=== PATIENT | male | born 1955 | race Caucasian/White ===

== ENCOUNTER 2016-09-23 11:51 | Inpatient (IN) | payer MEDICARE, MEDICAID ==
[~2016-09-23] VITALS: Ht 172.7 cm; Wt 129.8 kg
[~2016-09-23 11:51] MED LIST: ACCUNEB SOL3 ML/NE1 IN; ACETAMINOPHEN &1 TA1 PO; ADVAIR 250/5028 PUFF IN; ALBUTEROL-1 PUFF/14. IN; ALBUTEROL2 PUFFS/17 IN; ALPRAZOLAM1 MG PO; AMBIEN 10MG TAB10 MG PO; ARAVA20 MG PO; ASPERCREME10% TP; ASPIRIN 81MG TA81 MG PO; ATORVASTATIN CA20 M1 PO; ATORVASTATIN CA20 MG PO; AVPAK AZITHROM250 MG PO; AZITHROMYCIN250 MG PO; BACTRIM DS 8001 TA1 PO; CEFDINIR300 M1 PO; CLOPIDOGREL75 M2 PO; CLOTRIMAZOLE 1%15 GM TP; CYCLOBENZAPRINE10 MG PO; DOXYCYCLINE HY100 M4 PO; FLAGYL500 M1 PO; FLUOXETINE20 MG PO; FOLIC ACID1 MG PO; FUROSEMIDE 40MG40 M1 PO; GABAPENTIN300 M1 PO; HYDROCODONE 7.51 TAB PO; HYDROCODONE-APA1 TA2 PO; HYDROCODONE1 TABLET PO; IBU-8800 MG PO; IPRATROPIUM BROM3 M1 IN; KEFLEX 500MG.500 MG PO; KLOR-CON M2020 MEQ PO; LEVAQUIN500 MG PO; LEVAQUIN750 MG PO; LEXAPRO 10 MG T10 MG PO; LISINOPRIL 20MG20 MG PO; LOPRESSOR 25MG.25 MG PO; LORTAB 5/500 501 TAB PO; METHOTREXATE 22.5 MG PO; METOPROLOL25 MG PO; NICOTINE PATCH;21 MG TD; NYSTATIN SUSPEN60 ML PO; POTASSIUM CHLO20 ME2 PO; PREDNISONE 10MG10 MG PO; PREDNISONE 20MG20 MG PO; PREDNISONE20 MG PO; PRENATAL PLUS1 TA1 PO; PRILOSEC20 MG PO; RANEXA1000 M2 PO; SALMETEROL-F28 PUFFS IN; SERTRALINE 100100 MG PO; SINGULAIR10 MG PO; STERAPRED DS10 MG PO; THEO-TIME300 MG PO; TRAZODONE 50MG50 MG PO; TREXALL15 MG PO; XANAX 1MG TABLET1 MG PO
[2016-09-23 11:54] VITALS: BP 159/95
[2016-09-23 12:34] LABS: HEMOGLOBIN 9.8 g/dL (14.1-18.0); LYMPH % 14.2 % (10-50)
--- NOTE | 2016-09-23 12:37 | Emergency Room Report ---
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 Y Clinical Suspician of Infection? N Mental Status: 1 - Regular (Normal Baseline) Sepsis Risk:Severe Sepsis Risk Have you (or family members/close friends) recently traveled outside the [place]? N If Yes, where/when: Have you had exposure to infectious disease within the past month? N TB? Other? Specify: Patient w/ hx of pulmonary fibrosis, patient of Dr. Camarena, has had several day hx of cough with sputum; states is on Erythromycin three times weekly and in past month has been on Levaquin per his PCP Dr. Perez. he was seen at ER yesterday and he states he was given steroids while there, and he brings in a discharge sheet stating dx COPD with Rx Doxycycline. He returns via EMS due to SOB this morning, with EMS administering duoneb R[employer] TANNER due to sats in the upper 80' s on their arrival. He arrives with sats in the upper 90's on CO. He states he has not taken any steroids today. No fever. ALLERGIES Coded Allergies: No Known Allergies (04/28/16) Home Medications Reported Medications Ranolazine (Ranexa) 1,000 MG PO BID Omeprazole (Prilosec 20MG) 20 MG PO DAILY Leflunomide (Arava) 20 MG PO DAILY Alprazolam (Xanax 1MG) 1 MG PO TID #90 TAB Sertraline Hydrochloride (Sertraline 100MG) 100 MG PO DAILY #30 CLOPIDOGREL BISULFATE (Clopidogrel) 75 MG PO DAILY #30 MULTIVIT-MIN W/FE-FA ( Multivitamin Tablet) 1 TAB PO DAILY Montelukast Sodium (Singulair) 10 MG PO QHS HYDROCODONE/ACETAMINOPHEN (Hydrocodon-Acetaminophn 10-325) 1 TAB PO Q4HP PRN PAIN #150 TRAZODONE HCL (Trazodone HCl) 50 MG PO QHS ALBUTEROL-IPRATROPIUM (Combivent Inhaler) 1 PUFFS IN Q6H FLUTICASONE/SALMETEROL (Advair 250-50 Diskus) 1 PUFF IN BID History Medical History General CAD? No Angina: No DE: Yes Hypertension? Yes Hyperlipidemia? Yes CHF? No DVT? No PE? No COPD? Yes Asthma? No Anemia? No GERD? Yes Gastric ulcers? No GI Bleed? No Hernia? No Thyroid Problems? No Hypothyroidism? No CVA? No Seizures? No Diabetes? No Renal Insuffiency? No End Stage Renal Disease? No UTI? No Stones? Yes BPH? No GB Disease: No Nephritic Syndrome? No Asplenia? No Hepatitis? No Sickle Cell Disease? No Arthritis? Yes Migraines? No Cataracts? No Glaucoma? No MRSA? Yes HIV? No TB? No Anxiety? Yes Depression? Yes Cancer? No More? 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 Immunization Hx DT/Tetanus Unknown Flu 2015-FSN Pneumonia Received In Past Surgical Hx Previous Surgery?Y LEFT ANKLE BILATERAL CARPAL TUNNEL RIGHT FOOT R SHOULDER REPLACEMENT IBV VALVE LT LUNG LEFT ANKLE IBV VALVE LT LUNG REMOVED Family History Family Hx Diabetes No CAD No Hypertension Yes Hyperlipidemia Yes Cancer No TB No Social History Smoking Hx Smoker: Current Some Day Smoker Tobacco: Yes Type Cigarettes Packs/day 1 1/2 - 2 Packs Alcohol Alcohol: No Review of Systems All Other Systems Reviewed and Negative (uses Combivent and Advair) Respiratory see HPI Physical Exam Vital Signs Vital Signs Date Time Temp Pulse Resp B/P Pulse O2 O2 Flow FiO2 Ox Delivery Rate 09/23 1154 99.1 98 24 159/95 96 4 General Appearance normal appearance, WD/WN, no apparent distress Eye Exam - bilateral eye normal exam, bilateral eye PERRL, bilateral eye EOMI Neck normal inspection, non-tender, supple, full range of motion Respiratory Status Yes: trachea midline, chest symmetrical, non tender chest, productive cough. No : respiratory distress, tender on palpation, use of accessory muscles, pain on inspiration, pain on expiration, non productive cough. Lung Sounds bilateral: wheezing. left: rhonchi. right: lungs clear (occ end exp wheezing). Cardiovascular normal exam, regular rate/rhythm, no peripheral edema, no gallop, no JVD, no murmur, no rub, normal peripheral pulses Gastrointestinal normal bowel sounds, normal exam, non tender, soft, no organomegaly, no pulsatile mass, no guarding, no rebound Extremities non-tender, normal range of motion, normal inspection, normal capillary refill, no calf tenderness Neurologic alert, normal exam, no motor/sensory deficits, oriented x 3 (speech clear; no tremor) Glascow Coma Scale Glascow Coma Scale Response Value EYE response: 4 Spontaneously 4 MOTOR response: 6 OBEYS 6 VERBAL response: 5 Oriented & Converses 5 Total 15 Skin intact, normal color, warm/dry, bruising Medical Decision Making LABS/Meds/Orders Pt receiving controlled substance in ED? No Results/Orders Laboratory Tests 09/23/16 1225: Lactic Acid 1.2 09/23/16 1225: Sodium 139, Potassium 4.3, Chloride 102, Carbon Dioxide 32, BUN 12, Creatinine 0.9, Estimated Creat Clear 138, Estimated GFR (MDRD) 87, Glucose 113 H, Calcium 8.7, Total Bilirubin 0.6, AST 18, ALT 19, Alkaline Phosphatase 44 L, Total Protein 6.6, Albumin 2.2 L, Globulin 4.4 H, Albumin/Globulin Ratio 0.5 L, WBC 7.3, RBC 3.48 L, Hgb 9.8 L, Hct 30.6 L, MCV 87.9, RDW 17.9 H, Plt Count 189, MPV 6.9 L, Gran % 77.8, Gran # 5.7, Lymphocytes % 14.2, Monocytes % 5.1, Eosinophils % 2.7, Basophils % 0.1, Lymphocytes # 1.0, Monocytes # 0.4, Eosinophils # 0.2, Basophils # 0.0, PUBS MCHC 31.9, MCH 28.0 Current Medication Orders Sig/Rito Start time Last Medication Dose Route Stop Time Status Admin Methylprednisolone 125 MG ONCE ONE 09/23 1245 CAN Sodium Succinate IV 09/23 1246 Methylprednisolone 0 .STK-MED ONE 09/23 1239 DC Sodium Succinate .ROUTE Methylprednisolone 125 MG ONCE ONE 09/23 1215 DC 09/23 Sodium Succinate IV 09/23 1216 1241 Sodium Chloride 10 ML PRN PRN 09/23 1215 AC IV 09/24 1201 Orders Procedure Date/time Status Decision to admit 09/23 1339 Active CULTURE, SPUTUM 09/23 1210 Active IV SALINE LOCK 09/23 1203 Active OXYGEN PER NURSE 09/23 1203 Active CULTURE, BLOOD 09/23 1203 Active LACTIC ACID 09/23 1203 Complete CBC WITH AUTO DIFF 09/23 1203 Complete CHEM 12 PROFILE 09/23 1203 Complete XRAY/CT/US XRAY/CT/US XRAY chest XR interpretation by reviewed by me Comment CHF w/ pulmonary fibrosis per radiology; (ERMD initially questioned infiltrates on prelim) Consult MD Physician Consult Time Called 1316 Reason Admission Progress ED Progress Notes Date 09/23/16 Time 1347 Comment I spoke with Dr. Perez, who will admit patient; had seen this patient in past four office visits this month; suggests may be a candidate for hospice. Give Lasix. Departure Departure Time of Disposition 1346 Disposition Still a Patient Clinical Impression Primary Impression: COPD exacerbation Condition STABLE Referrals Norm Perez MD (Family) ED Critical Care Critical Care No at 1347
--- NOTE | 2016-09-23 13:43 | RADIOLOGY REPORT PS360 ---
CHEST-PORTABLE HISTORY: SOA ORDERING PHYSICIAN: Catrachita Sanchez MD PATIENT AGE: 60 years COMPARISON: 08/25/2016 FINDINGS: There is cardiomegaly with pulmonary venous congestion and diffuse bilateral interstitial changes/pulmonary fibrosis as previously described is probably not significantly changed considering the difference in technique. IMPRESSION: CHF with diffuse pulmonary fibrosis
--- NOTE | 2016-09-23 14:53 | PHARMACY CLINIC NOTE ---
Patient Demographics Patient Demographics Admission date: 09/23/16 Date: 09/23/16 Time: 1452 Allergies Coded Allergies: No Known Allergies (04/28/16) HEIGHT- FT: 5 IN: 8.00 K.864 VTE General Information Labs: Laboratory Tests 09/23 1225 Hematology Hgb (14.1 - 18.0 g/dL) 9.8 L Hct (42.0 - 52.0 %) 30.6 L Plt Count (142 - 424 K/mm3) 189 Disclaimer The following section includes nursing documentation that has been pulled in for pharmacy review. VTE prophylaxis NQF [id number] VTE prophylaxis ordered? Yes Type of prophylaxis/treatment: KENNY at 4361
[2016-09-23 16:18] VITALS: BP 164/95
--- NOTE | 2016-09-23 17:08 | HISTORY AND PHYSICAL REPORT ---
Demographics: Admit date: 09/23/16 Chief complaint: Shortness of breath PRIMARY DIAGNOSIS: chronic obstructive pulmonary disease exacerbation Allergies: Coded Allergies: No Known Allergies (04/28/16) History of present illness: History of present illness: 60-year-old male with chronic lung disease, severe chronic obstructive pulmonary disease, pulmonary fibrosis, rheumatoid arthritis, chronic pain presents to the emergency department at [facility] with complaint of increasing shortness of breath since the beginning of the week. Patient reports subjective fevers at home along with chills, a cough that is productive of either clear or light green or dark green sputum, and increasing shortness of breath. Patient was actually scheduled to be seen in my office on Tuesday of this week and missed that appointment. He was then seen on Tuesday, September 22 by my nurse practitioner who contacted Dr. Escamilla about the patient and he was subsequently sent to [facility] emergency department. The patient tells me he was in the ER for several hours. It sounds like he pushed for decision to be made on whether he would be admitted to the hospital or not. They sent him home with prednisone and a prescription for doxycycline. He then came to our emergency department today. So far in 2017 he has had multiple exacerbations of his chronic lung disease requiring steroids and antibiotics. He is also had to nursing home facility stays, one at [facility] and 1 at [facility] for attempts at pulmonary rehab. In the emergency department patient's O2 sats were in the 80s and 90s which is higher than any of his last 4 office visits when his O2 sats have ranged from the mid to high 70s to the low 80s. Past medical history: Family HX Family Hx Insignificant No Diabetes No CAD No Hypertension Yes Hyperlipidemia No Cancer Yes TB No Immunization HX DT/Tetanus N Flu 2015-FSN Pneumonia Received In Past Other PREVANAR 13 SHOT TB Test in last year No General CAD? No Angina: No MD: Yes Hypertension? Yes Hyperlipidemia? No CHF? No DVT? No PE? No COPD? Yes Asthma? Yes Anemia? Yes GERD? Yes Gastric ulcers? No GI Bleed? No Hernia? Yes Thyroid Problems? No Hypothyroidism? No CVA? No Seizures? No Diabetes? No Renal Insuffiency? No UTI? Yes Stones? Yes BPH? Yes GB Disease: No Nephritic Syndrome? No Asplenia? No Hepatitis? No Sickle Cell Disease? No Arthritis? Yes Migraines? No Cataracts? No Glaucoma? No MRSA? Yes HIV? No TB? No Anxiety? Yes Depression? Yes Cancer? No More? 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 Past Surgical HX Previous Surgery?Y LEFT ANKLE BILATERAL CARPAL TUNNEL RIGHT FOOT R SHOULDER REPLACEMENT IBV VALVE RT LUNG LEFT ANKLE IBV VALVE RT LUNG REMOVED Current home meds: Reported Medications Ranolazine (Ranexa) 1,000 MG PO BID Omeprazole (Prilosec 20MG) 20 MG PO DAILY Leflunomide (Arava) 20 MG PO DAILY Alprazolam (Xanax 1MG) 1 MG PO TID #90 TAB Sertraline Hydrochloride (Sertraline 100MG) 100 MG PO DAILY #30 CLOPIDOGREL BISULFATE (Clopidogrel) 75 MG PO DAILY #30 MULTIVIT-MIN W/FE-FA ( Multivitamin Tablet) 1 TAB PO DAILY Montelukast Sodium (Singulair) 10 MG PO QHS HYDROCODONE/ACETAMINOPHEN (Hydrocodon-Acetaminophn 10-325) 1 TAB PO Q4HP PRN PAIN #150 TRAZODONE HCL (Trazodone HCl) 50 MG PO QHS ALBUTEROL-IPRATROPIUM (Combivent Inhaler) 1 PUFFS IN Q6H FLUTICASONE/SALMETEROL (Advair 250-50 Diskus) 1 PUFF IN BID Social Hx: Smoking HX Tobacco Yes Type Cigarettes Packs/day 1 1/2 - 2 PACKS Alcohol Alcohol: No Hx of Drug Use Drug Use? No Comment: Quit smoking earlier this year Review of systems: Constitutional see HPI. Respiratory see HPI. Cardiovascular no symptoms reported Gastrointestinal/Abdominal no symptoms reported Genitourinary no symptoms reported. Musculoskeletal no symptoms reported. Neurological Yes: no symptoms reported. Exam: Lab data for last 24 hours: Laboratory Tests 09/23/16 1225: Lactic Acid 1.2 09/23/16 1225: Sodium 139, Potassium 4.3, Chloride 102, Carbon Dioxide 32, BUN 12, Creatinine 0.9, Estimated Creat Clear 138, Estimated GFR (MDRD) 87, Glucose 113 H, Calcium 8.7, Total Bilirubin 0.6, AST 18, ALT 19, Alkaline Phosphatase 44 L, Total Protein 6.6, Albumin 2.2 L, Globulin 4.4 H, Albumin/Globulin Ratio 0.5 L, WBC 7.3, RBC 3.48 L, Hgb 9.8 L, Hct 30.6 L, MCV 87.9, RDW 17.9 H, Plt Count 189, MPV 6.9 L, Gran % 77.8, Gran # 5.7, Lymphocytes % 14.2, Monocytes % 5.1, Eosinophils % 2.7, Basophils % 0.1, Lymphocytes # 1.0, Monocytes # 0.4, Eosinophils # 0.2, Basophils # 0.0, PUBS MCHC 31.9, MCH 28.0 Microbiology 09/23 122 BLOOD: Anaerobic Blood Culture - RECD 09/23 1224 BLOOD: Aerobic Blood Culture - RECD 09/23 1224 BLOOD: Anaerobic Blood Culture - RECD 09/23 1224 BLOOD: Aerobic Blood Culture - RECD 09/23 1210 SPUTUM: Sputum Culture - ORD 09/23 1209 SPUTUM: Gram Stain - ORD Admission vital signs: 1ST Vital Signs Result Date Time Pulse Ox 96 09/23 1154 B/P 159/95 09/23 1154 O2 Flow Rate 4 09/23 1154 Temp 99.1 09/23 1154 Pulse 98 09/23 1154 Resp 24 09/23 1154 O2 Delivery OXYGEN 09/23 1618 Additional information: Patient is in bed with nasal cannula oxygen is in place. He has mild tachypnea. HEENT exam: Moist oropharynx, normal external ears, intact extraocular movements. Neck is without lymphadenopathy or carotid bruits. Lungs: Patient has fair aeration along with some dry inspiratory crackles at the bases and occasional expiratory wheeze. He is not far from baseline. Heart has a regular rate and rhythm. Abdomen is obese and soft. Extremities are without edema Plan: Problem List 1. Chronic obstructive pulmonary disease with (acute) exacerbation 2. Chronic respiratory failure 3. Interstitial lung disease 4. Pulmonary fibrosis Plan: 1. Patient's been admitted and will be given Solu-Medrol every 8 hours, DuoNeb nebs and started on Invanz. Sputum culture will be collected. Blood culture has Arctic been collected. Overall the patient needs palliative care as he is not expected to improve significantly. I will discuss this with the patient in the morning at 1708
[2016-09-23 18:39] VITALS: BP 151/72
[2016-09-23 19:20] VITALS: BP 139/79
[2016-09-23 21:40] VITALS: BP 139/79
[2016-09-23] MEDS ORDERED: LOPRESSOR 25MG.25 MG PO (21:58)
[2016-09-23] MEDS ORDERED: GABAPENTIN300 M1 PO (21:59)
[2016-09-23 23:46] VITALS: BP 126/81
[2016-09-24] VITALS (7 sets, daily range): BP systolic 111–139; BP diastolic 69–79
[2016-09-24 07:07] LABS: LYMPH # 0.6 K/mm3 (0.7-4.5); LYMPH % 10.9 % (10-50)
[2016-09-24 07:09] LABS: HEMOGLOBIN 10.9 g/dL (14.1-18.0)
--- NOTE | 2016-09-24 07:16 | ACUTE CARE PROGRESS NOTE (QUA) ---
Progress Notes Subjective Date 09/24/16 Time 0714 Note Patient is a little upset he did not get breathing treatments every 4 hours. He was awake and off and on during the night primarily due to the steroids he received but also because of his chronic back pain. Patient appears comfortable. Nasal cannula is in place. Lungs have fair aeration with diffuse expiratory wheezes both anteriorly and posteriorly. Rhonchi were present yesterday had improved. Continue IV steroids and Invanz. Patient's been unable to produce a sputum for collection. He will need to continue aerosols and steroids as well as antibiotics through the weekend. At discharge we will contact [facility] navigators to see if there are palliative care team can assess the patient. Objective Findings Last VS-Temp:99.2 B/P:111/69 Pulse:75 Resp:20 SaO2:90 OXYGEN Last weight lbs:286 oz:4 K.843 Method:Bed Scales Laboratory Tests 09/24/16 0645: WBC 5.2, RBC 3.85 L, Hgb 10.9 L, Hct 34.6 L, MCV 89.9, RDW 17.9 H, Plt Count 225, MPV 6.6 L, Gran % 86.1 H, Gran # 4.5, Lymphocytes % 10.9, Monocytes % 2.6 , Eosinophils % 0.3, Basophils % 0.1, Lymphocytes # 0.6 L, Monocytes # 0.1, Eosinophils # 0.0, Basophils # 0.0, PUBS MCHC 30.9 L, MCH 27.8 09/23/16 1225: Lactic Acid 1.2 09/23/16 1225: Sodium 139, Potassium 4.3, Chloride 102, Carbon Dioxide 32, BUN 12, Creatinine 0.9, Estimated Creat Clear 138, Estimated GFR (MDRD) 87, Glucose 113 H, Calcium 8.7, Total Bilirubin 0.6, AST 18, ALT 19, Alkaline Phosphatase 44 L, Total Protein 6.6, Albumin 2.2 L, Globulin 4.4 H, Albumin/Globulin Ratio 0.5 L, WBC 7.3, RBC 3.48 L, Hgb 9.8 L, Hct 30.6 L, MCV 87.9, RDW 17.9 H, Plt Count 189, MPV 6.9 L, Gran % 77.8, Gran # 5.7, Lymphocytes % 14.2, Monocytes % 5.1, Eosinophils % 2.7, Basophils % 0.1, Lymphocytes # 1.0, Monocytes # 0.4, Eosinophils # 0.2, Basophils # 0.0, PUBS MCHC 31.9, MCH 28.0 Microbiology 09/23 1225 BLOOD: Anaerobic Blood Culture - RECD 09/23 1225 BLOOD: Aerobic Blood Culture - RECD 09/23 1225 BLOOD: Anaerobic Blood Culture - RECD 09/23 1225 BLOOD: Aerobic Blood Culture - RECD 09/23 1210 SPUTUM: Sputum Culture - ORD 09/23 1210 SPUTUM: Gram Stain - ORD Assessment/Plan Problem List 1. Chronic obstructive pulmonary disease with (acute) exacerbation 2. Chronic respiratory failure 3. Interstitial lung disease 4. Pulmonary fibrosis Patient condition Stable This inpt stay is expected to cross 2 MNs from start of care Yes at 0716
[2016-09-24 09:41] LABS: NEUTROPHILS 80 % (42-76)
[2016-09-24 10:46] LABS: CORONAVIRUS 229E NOT DETECTED (NOT DETECTE); CORONAVIRUS HKU 1 NOT DETECTED (NOT DETECTE); CORONAVIRUS NL63 NOT DETECTED (NOT DETECTE); CORONAVIRUS OC43 NOT DETECTED (NOT DETECTE)
[2016-09-24 11:59] LABS: RHINOVIRUS/ENTEROVIRUS DETECTED (NOT DETECTE)
[2016-09-25 03:45] VITALS: BP 143/75
--- NOTE | 2016-09-25 07:39 | ACUTE CARE PROGRESS NOTE (QUA) ---
Progress Notes Subjective Date 09/25/16 Time 0739 Note Patient feels somewhat better. Notes that CPAP has caused increased wheezing. Patient alert. Somewhat cantankerous. Anterior lung connor have good air movement but are afflicted with expiratory wheezing and some rhonchi. Heart irregular. Abdomen soft. Objective Findings Last VS-Temp:98.3 B/P:143/75 Pulse:106 Resp:24 SaO2:95 OXYGEN Last weight lbs:286 oz:4 K.843 Method:Bed Scales Assessment/Plan Problem List 1. Chronic obstructive pulmonary disease with (acute) exacerbation 2. Chronic respiratory failure 3. Interstitial lung disease 4. Pulmonary fibrosis Patient condition Improving, no change in plan, home medications reconciled. This inpt stay is expected to cross 2 MNs from start of care Yes Antibiotic Stewardship (2) Current Culture Results Microbiology 09/23 1225 BLOOD: Anaerobic Blood Culture - RECD 09/23 1225 BLOOD: Aerobic Blood Culture - RECD 09/23 UNK SPUTUM: Sputum Culture - ORD 09/23 UNK SPUTUM: Gram Stain - ORD Infxn that will respond? Yes Right drug,dose,and route? Yes More targeted antbx? No How long atbx needed? 7 at 0739
[2016-09-25 08:30] VITALS: BP 124/77
[2016-09-25 15:59] VITALS: BP 137/79
[2016-09-25 19:40] VITALS: BP 121/69
[2016-09-25 20:00] VITALS: BP 121/69
[2016-09-26 04:00] VITALS: BP 141/76
--- NOTE | 2016-09-26 07:27 | ACUTE CARE PROGRESS NOTE (QUA) ---
Progress Notes Admission Date: 09/23/16 Subjective Date 09/26/16 Time 0726 Note Overall patient feels a little better today. Slept well. Is pleased that his medicines have now been reordered according to his medication regimen at home. Continues to have loose rhonchi and some expiratory wheezing throughout his lungs. Abdomen is soft, exam compromised by his morbid obesity. Heart rate regular. No ankle edema. Objective Findings Last VS-Temp:97.9 B/P:141/76 Pulse:69 Resp:20 SaO2:96 OXYGEN Last weight lbs:286 oz:4 K.843 Method:Bed Scales Assessment/Plan Problem List 1. Chronic obstructive pulmonary disease with (acute) exacerbation 2. Chronic respiratory failure 3. Interstitial lung disease 4. Pulmonary fibrosis 5. Morbid obesity Patient condition Improving Plan: continue current care, follow labs tomorrow, no major changes otherwise. This inpt stay is expected to cross 2 MNs from start of care Yes Antibiotic Stewardship (2) Current Culture Results Microbiology 09/23 1225 BLOOD: Anaerobic Blood Culture - RECD 09/23 1225 BLOOD: Aerobic Blood Culture - RECD 09/23 UNK SPUTUM: Sputum Culture - ORD 09/23 UNK SPUTUM: Gram Stain - ORD Infxn that will respond? Yes Right drug,dose,and route? Yes More targeted antbx? No How long atbx needed? 7 at 0726
[2016-09-26 07:47] VITALS: BP 157/88
[2016-09-26 08:46] VITALS: BP 157/88
--- OUTSIDE RECORDS SUMMARY | 2016-09-26 10:36 | External Medical Summary Rpt ---
Author Author , Organization [employer] Address Unknown Phone Unavailable Care Team Providers Care Aircraft Inspection Record Clerk Name Role Phone A Candice COLBERT MD P[facility], Avtar Unavailable Unavailable Candice COLBERT MD PSC MARTIN MCKINNEY Unavailable Unavailable REEMA ELDER, Unavailable Unavailable REEMA BOOTH [facility], Unavailable Unavailable INC., [facility] Unavailable Unavailable [place] [place] [facility], [facility] AND Unavailable Unavailable BESSON KAMALA, BESSON Unavailable Unavailable KAMALA SOHEILA DEENA, Unavailable Unavailable SOHEILA DEENA [facility] Unavailable Unavailable SERVICE, [facility] Unavailable Unavailable SERVICE, [facility] CAMILLE KET, CAMILLE KET Unavailable Unavailable GRZEGORZ ONLINE MEDIA BUYER, GRZEGORZ Unavailable Unavailable ONLINE MEDIA BUYER TITI JAG, TITI Unavailable Unavailable FAUSTINO MCDOWELL, Unavailable Unavailable FAUSTINO RUIZ [facility], Unavailable Unavailable [facility] COZ YATACO ANG, COZ Unavailable Unavailable YATACO ANG DAWNA TIERRA, Unavailable Unavailable DAWNA TIERRA LAVONNE KALYAN, Unavailable Unavailable LAVONNE KALYAN LAVONNE KALYAN, Unavailable Unavailable LAVONNE KALYAN LAVONNE, GEREMIAS, Unavailable Unavailable LAVONNE, GEREMIAS DISANTIS SIDDHARTHA, Unavailable Unavailable DISANTIS SIDDHARTHA [facility], [facility] Unavailable Unavailable JERRI ESPERANZA, JERRI Unavailable Unavailable ESPERANZA JERRI ESPERANZA, JERRI Unavailable Unavailable ESPERANZA ALBERTO RIT, ALBERTO RIT Unavailable Unavailable HU NAN, HU Unavailable Unavailable NAN JESSICA VENUS, JESSICA Unavailable Unavailable VENUS [facility] Unavailable Unavailable HOSPITA, [facility] Unavailable Unavailable [facility], [facility], [facility] Unavailable Unavailable [facility] Unavailable Unavailable INC, [facility] Unavailable Unavailable HOSPITAL P, [facility] P DUBOIS KAMALA, DUBOIS KAMALA Unavailable Unavailable MARIXA CHASE, RENA, Unavailable Unavailable MARIXA G [facility] Unavailable Unavailable [facility] HARLEY OSCAR, Unavailable Unavailable HARLEY OSCAR KILPELA JEA, KILPELA Unavailable Unavailable JEA ARINA NADINE, ARINA NADINE Unavailable Unavailable ISA SARAH, ISA SARAH Unavailable Unavailable KOSTELIC MONTSERRAT, Unavailable Unavailable KOSTELIC MONTSERRAT ROQUE CHI, ROQUE CHI Unavailable Unavailable [facility] Unavailable Unavailable [facility], [facility] Unavailable Unavailable HOLDING, [facility] [place] Unavailable Unavailable [facility]INGS, [facility] Unavailable Unavailable [facility], [facility], Unavailable Unavailable [facility] JUAN KAMALA, Unavailable Unavailable TONO PONCE, Unavailable Unavailable TONO MARTINEZ HAYWOOD MARION, HAYWOOD Unavailable Unavailable MARION JESICA JAM, JESICA JAM Unavailable Unavailable TIAGO JR DWI, TIAGO Unavailable Unavailable JR DWI LUKINS TIERRA, LUKINS Unavailable Unavailable TIERRA [facility] Unavailable Unavailable SERVICES, [facility] MAKSIM II, NESHA A, Unavailable Unavailable MAKSIM II, NESHA A THOMPSON JAM, Unavailable Unavailable THOMPSON JAM TOSHIA WESTON, Unavailable Unavailable [facility] Unavailable Unavailable OF THE B, [facility], Unavailable Unavailable [facility] ANUPAM SANCHES, Unavailable Unavailable MYRON, TADARRO RICHY HOLLIS G, Unavailable Unavailable RICHY HOLLIS G MOE CHET, MOE CHET Unavailable Unavailable SEETHARMRAJU HAZEL, Unavailable Unavailable SEETHARMRAJU HAZEL HUMMEL GODFREY, HUMMEL Unavailable Unavailable JENNIFER WHITLOCK, Unavailable Unavailable JENNIFER BOSCH [facility] Unavailable Unavailable EQUIPME, [facility] Unavailable Unavailable EQUIPME, [facility] TIM JUAREZ, Unavailable Unavailable TIM JUAREZ, Unavailable Unavailable SHAJI POWELL Unavailable Unavailable PRE [facility], Unavailable Unavailable [facility] Unavailable Unavailable [facility] GERALD MINA, Unavailable Unavailable ALEJO STRICKLAND, Unavailable Unavailable ALEJO AVENDANO III, Unavailable Unavailable YUNI SANTA, DEONDRE SANTA Unavailable Unavailable KAPOOR RAMA, EMELIA ONTIVEROS Unavailable [facility]available [facility], Unavailable [facility]available [facility] Purpose Continuity of Care Document - 07-10-2007 through 2016 Problems Code Diagnosis DOS Provider Status 486 PNEUMONIA, 03-16-2014 [facility] UNSPECIFIED MEDICAL EQUIPME 496 CHRONIC 03-16-2014 [facility] OBSTRUCTION MEDICAL NEC EQUIPME 515 POSTINFLAMM 03-19-2013 [facility] PULMONARY [facility] FIBROSIS 7245 UNSPECIFIED 03-19-2013 [facility] 47601 OTHER 03-19-2013 [facility] [place] [address] OBSTRUCTIVE 03-10-2013 [facility] APNEA MEDICAL EQUIPME 79442 OTHER 03-07-2013 [facility] LUNG NOT INC ELSEWHERE CLASSIFIED 7242 LUMBAGO 03-06-2013 [facility] V571 OTHER 03-06-2013 [facility] THERAP[facility] 39779 OTHER 03-01-2013 [facility] OF BRAIN [facility] 7140 RHEUMATOID 03-01-2013 [facility] 7840 HEADACHE 03-01-2013 [facility] 44711 DIARRHEA 03-01-2013 [facility] 7930 NONSPECIFIC 03-01-2013 [facility] AB[facility] FNDNG SERV RAD & OTH [facility] EXM SKULL & HEAD E8889 UNSPECIFIED 03-01-2013 [facility] F[place] [facility] 61796 OTHER 02-28-2013 [facility] PAIN [facility] 4019 UNSPECIFIED 02-28-2013 [facility] ESSENTIAL [facility] HYPERTENSIO [facility] N 22958 FEVER 02-28-2013 [facility] U[facility]PECIF[facility] 15094 OTHER 02-28-2013 [facility] NONSPECIFIC [facility] ABNORMAL [facility] FINDING OF LUNG FIELD 412 OLD 02-27-2013 [facility] INFARCTION 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 4829 UNSPECIFIED 02-27-2013 [facility] PNEUMONIA SERVICE 5184 UNSPECIFIED 02-27-2013 [facility] EDEMA OF [facility] LUNG 5849 ACUTE 02-27-2013 [facility] FAILURE UNSPECIFIED 15786 RHEUMATOID 02-27-2013 [facility] V4361 SHOULDER 02-27-2013 [facility] REPLACEMENT [facility] BY OTHER MEANS V462 DEPENDENCE 02-27-2013 [facility] FOR SUPPLEMENTA L OXYGEN 93205 OBSTRUCTIVE 02-26-2013 [facility] BRONCHITIS [facility] P WITH EXACERBATIO N V5869 LONG-TERM 02-20-2013 [facility] USE OF [place] OTHER MEDICATIONS V6751 F/U EXAM 02-20-2013 [facility] FOLLOW CMPL [place] [facility] W/HIGH-RISK MED NEC 71204 COR 02-12-2013 [facility] UNSPEC TYPE VESSEL TANGIRNAQ/RAUL T 4940 BRONCHIECTA 01-31-2013 [facility] WITHOUT SERV ACUTE FOUND[facility] EXACERBATIO N 59490 IDIOPATHIC 01-31-2013 [facility] FIBROS[facility] 7856 ENLARGEMENT 01-31-2013 [facility] LYMPH SERV NODES [facility] 67619 SHORTNESS 01-31-2013 [facility] BREATH SERV [facility] 17631 OTHER 01-31-2013 [facility] RESPIRATORY AMBULANCE SERVICE COMPLICATIO NS 0529 VARICELLA 01-06-2013 A Candice PINZON MD PSC MENTION OF COMPLICATIO N 7862 COUGH 01-06-2013 A Candice COLBERT MD PSC 4660 ACUTE 11-06-2012 A Candice COLBERT BRONCHITIS PSC V5812 ENCOUNTER 09-25-2012 [facility] ANTINEOPLAS [place] TIC IMMUNOTHERA PY 2859 UNSPECIFIED 08-31-2012 [facility] 4841 PNEUMONIA 08-31-2012 [facility] IN [facility] CYTOMEGALIC [facility] INCLUSION DISEASE 5168 OTH SPEC 08-31-2012 [facility] ALVEOL&DEONNA SERV ETOALVEOL F[facility] PNEUMONOPAT HIES 15283 NAUSEA WITH 08-02-2012 [facility]OM[facility] V1209 PERSONAL HX 08-02-2012 [facility] INFECTIOUS& F[facility]AT[facility] PARASITIC DISEASE 2724 OTHER AND 07-31-2012 [facility] HYPERLIPIDE ALEKSANDAR 5589 OTH&UNSPEC 07-31-2012 [facility] NONINFECT[place] SERV US [facility] GASTROENTER ITIS&COLITI S 43659 VOMITING 07-31-2012 [facility] INTER 41741 ABDOMINAL 07-31-2012 [facility] [place], SERV EPIGASTRIC [facility] 42887 SYSTEMIC 07-31-2012 [facility] RESPONSE SYNDROME UNSPEC V1269 PERSONAL 07-31-2012 [facility] H[facility] OTHER [facility] DISEASES RESPIRATORY SYS 514 PULMONARY 07-03-2012 [facility] AND HYPOSTASIS 7295 PAIN IN 07-03-2012 JERRI ESPERANZA SOFT TISSUES OF LIMB 7823 EDEMA 07-03-2012 JERRI ESPERANZA 5119 UNSPECIFIED 07-01-2012 [facility] EFFUSION 37715 OTHER 06-20-2012 [facility] OF SERV NASAL [facility] CAVITY AND SINUSES 5121 IATROGENIC 06-16-2012 [facility] PNEUMOTHROA SERV X [facility] 06142 ACUTE AND 06-16-2012 [facility] CHRON[facility] RESPIRATORY [facility] FAILURE 37730 SEPTIC 06-16-2012 [facility] SHOCK [facility] 0785 CYTOMEGALOV 06-15-2012 [facility] DISEASE [facility] 75628 CHEST PAIN 06-15-2012 [facility] OF THE B 7850 UNSPECIFIED 06-11-2012 [facility] TACHYCARDIA [facility] 4279 UNSPECIFIED 05-17-2012 [facility] CARDIAC [facility] DYSRHYTHMIA [facility] 66053 ACUTE 05-17-2012 [facility]ATORY [facility] FAILURE [facility] 18056 OTHER 04-24-2012 [facility] BRUNILDA SEPTICEMIA 1124 CANDIDIASIS 04-24-2012 [facility] 5070 PNEUMONITIS 04-24-2012 [facility] INHALATION OF FOOD OR VOMITUS 5100 EMPYEMA 04-24-2012 [facility] FISTULA 5183 PULMONARY 04-22-2012 [place] [facility] 95406 REFLUX 08-03-2011 [facility] ESOPHAGITIS KALYAN 54185 OTHER 08-03-2011 [facility] SYMPTOMS KALYAN INVOLVING DIGESTIVE SYSTEM OTHER 490 BRONCHITIS 07-13-2010 [facility] NOT KALYAN SPECIFIED ACUTE OR CHRONIC 90412 ASTHMA, 07-13-2010 [facility] UNSPECIFIED KALYAN , UNSPECIFIED STATUS 23656 PAIN IN 07-08-2010 [facility]INT, [facility] ANKLE AND FOOT 60766 DISORDER OF 07-08-2010 [facility] BONE AND SERV CARTILAGE F[facility] UNSPECIFIED V454 ARTHRODESIS 07-08-2010 [facility] STATUS [facility] V5489 OTHER 07-08-2010 [facility] AFTERCARE V5409 OTH 06-17-2010 [facility] AFTER[facility] INVOLVING [facility] INTERNAL FIXATION DEVICE V6700 FOLLOW-UP 06-01-2010 [facility] EXAMINATION SERV FOLLOWING F[facility]AT[facility] UNSPEC SURGERY 40229 PRIMARY 05-12-2010 [facility] LOCALIZED SERV OSTEOARTHRO FOUNDATIO SIS ANKLE AND FOOT 07892 PAIN IN 05-12-2010 [facility], SERV LOWER LEG FOUNDATIO V0481 NEED 05-12-2010 [facility] C VACCINATION &INOCULATIO N FLU V5849 OTHER 05-12-2010 [facility] SPECIFIED SERV AFTERCARE FOUNDATIO FOLLOWING SURGERY 4659 ACUTE URIS 04-17-2010 [facility] OF KALYAN UNSPECIFIED SITE 29656 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 [facility] RHEUMATISM SERV ANKLE AND FOUNDATIO FOOT 32611 PAIN IN 04-02-2010 [facility] JOINT, AMERIC UPPER ARM HOLDING 18603 OBST 03-12-2010 [facility] P W/ACUTE BRONCHITIS 84596 PAINFUL 03-12-2010 [facility]ERGENCY SERVICES 98077 UNSPECIFIED 05-20-2009 GEREMIAS BANERJEE ARTHROPATHY SITE UNSPECIFIED 4011 ESSENTIAL 05-09-2009 [facility] HYPERTENSI[facility] FAMILY PHYS N, BENIGN PSC 57278 OTHER CHEST 05-09-2009 [facility] PAIN GEREMIAS V7651 SPECIAL 05-09-2009 [facility] BANERJEE FOR MALIGNANT NEOPLASMS COLON 7808 GENERALIZED 05-05-2009 GEREMIAS BANERJEE HYPERHIDROS IS 5960 BLADDER 03-18-2009 [facility] [place] INC OBSTRUCTION 2720 PURE 03-17-2009 [facility] HYPERCHOLES GEREMIAS TEROLEMIA 54448 ESOPHAGEAL 03-17-2009 [facility] REFLUX GEREMIAS 35677 PRIMARY 03-17-2009 [facility] LOCALIZED GEREMIAS OSTEOARTHRO SIS OTH SPEC SITES 15373 OTH [facility] 11-26-2008 [facility] INT ORTHOPEDIC DEVC IMPL&GFT 61991 OT COMPS 11-26-2008 [facility] DUE OTH SERV INTRL F[facility]ATIO ORTHOPED DEVICE IMPL&GFT 7271 BUNION 11-11-2008 [facility] 49516 NONSPECIFIC 11-11-2008 [facility] ELECTROCARD IOGRAM V4589 OTHER 11-11-2008 [facility] L STATUS OTHER 25333 EFFUSION OF 09-19-2008 [facility] H JOINT ORTHOPAEDIC SURGEONS PSC 67021 VILLONODULA 09-19-2008 [facility] SYNOVITIS, ORTHOPAEDIC LOWER LEG SURGEONS PSC 5185 PULMONARY 05-16-2008 [facility] FOLLOW SERVICES [facility] SURGERY 49418 UNSPECIFIED 05-15-2008 [facility] [place] [address] EXTRINSIC 11-02-2007 [facility] ASTHMA, PHARMACY UNSPECIFIED 04120 OSTEOARTHRO 07-13-2007 MAKSIM II, SIS UNSPEC NESHA A WHETHER GEN/LOC ANK&FOOT 59005 TENOSYNOVIT 07-13-2007 MAKSIM II, IS OF FOOT NESHA A AND ANKLE E86.0 DEHYDRATION I45.10 UNSPECIFIED RIGHT BUNDLE-BRAN CH BLOCK J18.9 PNEUMONIA, UNSPECIFIED ORGANISM J40 BRONCHITIS, NOT SPECIFIED ACUTE OR CHRONIC J44.1 CHRONIC OBSTRUCTIVE PULMONARY DISEASE W (ACUTE) EXACERBATIO N J84.10 PULMONARY FIBROSIS, UNSPECIFIED J84.114 ACUTE INTERSTITIA L PNEUMONITIS J84.9 INTERSTITIA L PULMONARY DISEASE, UNSPECIFIED K57.92 DVTRCLI OF INTEST, PART UNSP, 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 W/O BLEED M48.06 SPINAL STENOSIS, LUMBAR REGION Allergies, Adverse Reactions, Alerts Type Allergy to substance Adverse Reaction to Substance Substance Reaction Severity NO KNOWN ALLERGIES Unknown Unknown Medications Na ND Rx Da Fi Fi Am Da Di Ph RX Ph St me C No te ll ll ou ys ag ar # ys at rm s nt no ma ic us Or Da si cy ia de te s n re d Ib 62 10 0 No up 58 -0 ro 40 1- Lo fe 74 20 ng n 70 13 er 60 1 0M Ac G ti Ta ve bl et LE 25 10 0 No VO 02 -0 FL 10 1- Lo OX 13 20 ng AC 28 13 er IN 3 Ac 75 ti 0 ve MG /1 50 ML -D 5W SO 00 09 1 No DI 40 -3 UM 97 0- Lo 98 20 ng CH 30 13 er LO 9 RI Ac DE ti ve 0. 9% SO AILIN TI ON Sa 63 09 1 No li 80 -3 ne 70 0- Lo 10 20 ng Fl 07 13 er us 5 h Ac 10 ti ML ve Sy ri ng e MA 00 09 0 No PA 90 -3 P 41 0- Lo 32 98 20 ng 5 26 13 er MG 1 Ac TA ti BL ve ET Sa 63 09 0 No li 80 -0 ne 70 4- Lo 10 20 ng Fl 07 13 er us 5 h Ac 10 ti ML ve Sy ri ng e IP 00 09 0 No RA 48 -0 T- 70 4- Lo AL 20 20 ng BU 10 13 er T 1 0. Ac 5- ti 3( ve 2. 5) MG /3 ML SO 00 09 0 No AILIN 00 -0 -M 90 4- Lo ED 04 20 ng RO 72 13 er L 2 12 Ac 5 ti MG ve AL Vital Signs 02-27-2013 00:37 Name Value Interpretat Reference Comment ion Range Body 102.4 Temperature [degF] BP 62 mm[Hg] Diastolic BP Systolic 121 mm[Hg] Heart 120 /min Rate/Pulse O2% 95 % Respiratory 24 /min Rate 02-27-2013 00:05 Name Value Interpretat Reference Comment ion Range Body 104.4 Temperature [degF] 02-26-2013 23:16 Name Value Interpretat Reference Comment ion Range BP 79 mm[Hg] Diastolic BP Systolic 124 mm[Hg] Heart 128 /min Rate/Pulse Respiratory 24 /min Rate 02-26-2013 22:43 Name Value Interpretat Reference Comment ion Range O2% 95 % 01-31-2013 17:47 Name Value Interpretat Reference Comment ion Range Body 99.0 [degF] Temperature BP 63 mm[Hg] Diastolic BP Systolic 121 mm[Hg] Heart 100 /min Rate/Pulse O2% 98 % Respiratory 24 /min Rate 01-31-2013 15:30 Name Value Interpretat Reference Comment ion Range BP 79 mm[Hg] Diastolic BP Systolic 130 mm[Hg] Heart 109 /min Rate/Pulse Respiratory 24 /min Rate 01-31-2013 15:06 Name Value Interpretat Reference Comment ion Range O2% 97 % 01-05-2013 15:52 Name Value Interpretat Reference Comment ion Range Body 98.8 [degF] Temperature BP 94 mm[Hg] Diastolic BP Systolic 140 mm[Hg] Heart 93 /min Rate/Pulse O2% 97 % Respiratory 20 /min Rate 01-05-2013 15:17 Name Value Interpretat Reference Comment ion Range BP 97 mm[Hg] Diastolic BP Systolic 139 mm[Hg] Heart 92 /min Rate/Pulse O2% 97 % Respiratory 16 /min Rate Results Labs Lab Lab Date Result Refere Interp Status Commen Order Detail nces retati t Range on NT-proBNP SerPl-mCnc (09-22-2016 14:15) NT-proB 492 0-899 complet LINE ASSEMBLER 017 pg/mL ed SerPl-m 14:15 Cnc Lactate Bld-sCnc (09-22-2016 14:15) Lactate 0.9 complet 017 mmol/L ed Bld-sCn 14:15 c BASIC METABOLIC PANEL (02-26-2013 22:55) Glucose 135 74-106 complet 013 mg/dL ed Bld-mCn 22:55 c BUN 11 7-18 complet Bld-mCn 013 mg/dL ed c 22:55 Creat 1.2 0.8-1.3 complet SerPl-m 013 mg/dL ed Cnc 22:55 ESTIMAT 96 50-200 complet ED 013 ML/MIN ed CREATIN 22:55 INE CLEARAN CE GFR 63 Greater complet (ESTIMA 013 ML/MIN than ed KENNY) 22:55 60 Sodium 137 136-145 complet SerPl-s 013 mmoL/L ed Cnc 22:55 Potassi 3.7 3.5-5.1 complet um 013 mmoL/L ed SerPl-s 22:55 Cnc Chlorid 100 98-107 complet e 013 mmoL/L ed SerPl-s 22:55 Cnc CO2 27 21.0-32 complet SerPl-s 013 mmoL/L .0 ed Cnc 22:55 Calcium 8.4 8.5-10. complet 013 mg/dL 1 ed SerPl-m 22:55 Cnc CBC with AUTO DIFF (02-26-2013 22:55) WBC # 02-26- 11.6 4.8-10. complet Bld 013 K/MM3 8 ed Auto 22:55 RBC # 02-26- 4.49 4.6-6.2 complet Bld 013 M/mm3 ed Auto 22:55 Hgb 13.3 14.1-18 complet Bld-mCn 013 g/dL .0 ed c 22:55 Hct Fr 40.0 % 42.0-52 complet Bld 013 .0 ed 22:55 MCV RBC 89.2 fl 82.2-97 complet 013 .8 ed 22:55 MCH RBC 29.5 pg 27-31.2 complet Qn 013 ed Auto 22:55 MEAN 33.1 31.8-35 complet CORPUSC 013 g/dl .4 ed ULAR 22:55 HGB CONC RDW RBC 18.0 % 11.5-17 complet Auto 013 .5 ed 22:55 Platele 09-30-2 187 142-424 complet t Bld 013 K/mm3 ed Ql 22:55 Manual MEAN -30-2 7.9 fl 7.4-10. complet PLATELE 013 4 ed T 22:55 VOLUME Granulo -30-2 68.9 % 37.0-80 complet cytes 013 .0 ed Fr Bld 22:55 Auto LYMPH % 09-30-2 22.1 % 10-50 complet 013 ed 22:55 Monocyt 09-30-2 7.8 % 1.7-9.3 complet es Fr 013 ed Bld 22:55 Auto Eosinop 09-30-2 0.9 % 0.1-12. complet hil Fr 013 0 ed Bld 22:55 Auto Basophi 09-30-2 0.3 % 0.1-2.0 complet ls Fr 013 ed Bld 22:55 Auto Granulo 09-30-2 8.0 1.3-8.0 complet cytes # 013 K/mm3 ed Bld 22:55 Auto Lymphoc 09-30-2 2.6 0.7-4.5 complet ytes Fr 013 K/mm3 ed Bld 22:55 Auto Monocyt 09-30-2 0.9 0.1-1.0 complet es # 013 K/mm3 ed Bld 22:55 Auto Eosinop 09-30-2 0.1 0.0-0.4 complet hil # 013 K/mm3 ed Bld 22:55 Auto Basophi 09-30-2 0.0 0-0.2 complet ls # 013 K/MM3 ed Bld 22:55 Auto ARTERIAL BLOOD GAS (02-26-2013 22:53) ARTERIA 30-2 7.49 7.35-7. complet L PH 013 MMOL/L 45 ed 22:53 ARTERIA 30-2 34.3 35.0-45 complet L PCO2 013 MMHG .0 ed 22:53 ARTERIA 30-2 85.0 80-100 complet L PO2 013 MMHG ed 22:53 ARTERIA 30-2 25.8 22.0-26 complet L HCO3 013 MMOL/L .0 ed 22:53 ARTERIA 30-2 26.8 23-27 complet L TCO2 013 MMOL/L ed 22:53 Base 2.5 -2.4-+2 complet excess 013 MMOL/L .3 ed BldA-sC 22:53 nc ARTERIA 96 % 90-100 complet L O2 013 ed SAT 22:53 OXYGEN 3LPM complet 013 ed 22:53 Arteria ACCEPTA complet l 013 BLE ed patency 22:53 Wrist a SOURCE LEFT complet 013 RADIAL ed 22:53 COMPREHENSIVE METABOLIC PANEL (01-31-2013 15:25) Glucose 100 74-106 complet 013 mg/dL ed Bld-mCn 15:25 c BUN 6 mg/dL 7-18 complet Bld-mCn 013 ed c 15:25 Creat 1.1 0.8-1.3 complet SerPl-m 013 mg/dL ed Cnc 15:25 ESTIMAT 104 50-200 complet ED 013 ML/MIN ed CREATIN 15:25 INE CLEARAN CE GFR 69 Greater complet (ESTIMA 013 ML/MIN than ed KENNY) 15:25 60 Sodium 139 136-145 complet SerPl-s 013 mmoL/L ed Cnc 15:25 Potassi 4.3 3.5-5.1 complet um 013 mmoL/L ed SerPl-s 15:25 Cnc Chlorid 101 98-107 complet e 013 mmoL/L ed SerPl-s 15:25 Cnc CO2 30 21.0-32 complet SerPl-s 013 mmoL/L .0 ed Cnc 15:25 Calcium 8.9 8.5-10. complet 013 mg/dL 1 ed SerPl-m 15:25 Cnc Prot 8.1 6.4-8.2 complet SerPl-m 013 gm/dL ed Cnc 15:25 Albumin 2.8 3.4-5.0 complet 013 gm/dL ed SerPl-m 15:25 Cnc Globuli 5.3 1.3-3.2 complet n 013 gm/dL ed Ser-mCn 15:25 c Albumin 0.5 UNK 1.1-1.8 complet /Glob 013 ed SerPl-m 15:25 Rto Bilirub 09-04-2 0.6 0.2-1.0 complet 013 mg/dL ed SerPl-m 15:25 Cnc AST -04-2 22 U/L 15-37 complet SerPl-c 013 ed Cnc 15:25 ALT -04-2 33 U/L 30-65 complet SerPl-c 013 ed Cnc 15:25 ALP -04-2 85 U/L 50-136 complet SerPl-c 013 ed Cnc 15:25 CBC with AUTO DIFF (01-31-2013 15:25) WBC # 09-04-2 10.3 4.8-10. complet Bld 013 K/MM3 8 ed Auto 15:25 RBC # 09-04-2 4.47 4.6-6.2 complet Bld 013 M/mm3 ed Auto 15:25 Hgb 09-04-2 12.7 14.1-18 complet Bld-mCn 013 g/dL .0 ed c 15:25 Hct Fr -04-2 39.5 % 42.0-52 complet Bld 013 .0 ed 15:25 MCV RBC -04-2 88.5 fl 82.2-97 complet 013 .8 ed 15:25 MCH RBC -04-2 28.3 pg 27-31.2 complet Qn 013 ed Auto 15:25 MEAN -04-2 32.0 31.8-35 complet CORPUSC 013 g/dl .4 ed ULAR 15:25 HGB CONC RDW RBC -04-2 16.6 % 11.5-17 complet Auto 013 .5 ed 15:25 Platele -04-2 251 142-424 complet t Bld 013 K/mm3 ed Ql 15:25 Manual MEAN -04-2 7.8 fl 7.4-10. complet PLATELE 013 4 ed T 15:25 VOLUME Granulo -04-2 63.2 % 37.0-80 complet cytes 013 .0 ed Fr Bld 15:25 Auto LYMPH % 09-04-2 25.1 % 10-50 complet 013 ed 15:25 Monocyt 09-04-2 6.2 % 1.7-9.3 complet es Fr 013 ed Bld 15:25 Auto Eosinop 09-04-2 4.7 % 0.1-12. complet hil Fr 013 0 ed Bld 15:25 Auto Basophi 0904-2 0.9 % 0.1-2.0 complet ls Fr 013 ed Bld 15:25 Auto Granulo 01-31-2 6.5 1.3-8.0 complet cytes # 013 K/mm3 ed Bld 15:25 Auto Lymphoc 01-31-2 2.6 0.7-4.5 complet ytes Fr 013 K/mm3 ed Bld 15:25 Auto Monocyt 04-2 0.6 0.1-1.0 complet es # 013 K/mm3 ed Bld 15:25 Auto Eosinop 04-2 0.5 0.0-0.4 complet hil # 013 K/mm3 ed Bld 15:25 Auto Basophi 04-2 0.1 0-0.2 complet ls # 013 K/MM3 ed Bld 15:25 Auto COMPREHENSIVE METABOLIC PANEL (01-05-2013 15:00) Glucose 106 74-106 complet 013 mg/dL ed Bld-mCn 15:00 c BUN 9 mg/dL 7-18 complet Bld-mCn 013 ed c 15:00 Creat 1.2 0.8-1.3 complet SerPl-m 013 mg/dL ed Cnc 15:00 ESTIMAT 95 50-200 complet ED 013 ML/MIN ed CREATIN 15:00 INE CLEARAN CE GFR 63 Greater complet (ESTIMA 013 ML/MIN than ed KENNY) 15:00 60 Sodium 139 136-145 complet SerPl-s 013 mmoL/L ed Cnc 15:00 Potassi 4.1 3.5-5.1 complet um 013 mmoL/L ed SerPl-s 15:00 Cnc Chlorid 102 98-107 complet e 013 mmoL/L ed SerPl-s 15:00 Cnc CO2 28 21.0-32 complet SerPl-s 013 mmoL/L .0 ed Cnc 15:00 Calcium 9.0 8.5-10. complet 013 mg/dL 1 ed SerPl-m 15:00 Cnc Prot 8.9 6.4-8.2 complet SerPl-m 013 gm/dL ed Cnc 15:00 Albumin 01-05-2 3.1 3.4-5.0 complet 013 gm/dL ed SerPl-m 15:00 Cnc Globuli 5.8 1.3-3.2 complet n 013 gm/dL ed Ser-mCn 15:00 c Albumin 0.5 UNK 1.1-1.8 complet /Glob 013 ed SerPl-m 15:00 Rto Bilirub 0.4 0.2-1.0 complet 013 mg/dL ed SerPl-m 15:00 Cnc AST 28 U/L 15-37 complet SerPl-c 013 ed Cnc 15:00 ALT 35 U/L 30-65 complet SerPl-c 013 ed Cnc 15:00 ALP 80 U/L 50-136 complet SerPl-c 013 ed Cnc 15:00 CBC with AUTO DIFF (01-05-2013 15:00) WBC # 01-05-2 8.5 4.8-10. complet Bld 013 K/MM3 8 ed Auto 15:00 RBC # 01-05-2 4.88 4.6-6.2 complet Bld 013 M/mm3 ed Auto 15:00 Hgb 01-05- 13.5 14.1-18 complet Bld-mCn 013 g/dL .0 ed c 15:00 Hct Fr 41.4 % 42.0-52 complet Bld 013 .0 ed 15:00 MCV RBC 84.9 fl 82.2-97 complet 013 .8 ed 15:00 MCH RBC 27.6 pg 27-31.2 complet Qn 013 ed Auto 15:00 MEAN 32.5 31.8-35 complet CORPUSC 013 g/dl .4 ed ULAR 15:00 HGB CONC RDW RBC 15.5 % 11.5-17 complet Auto 013 .5 ed 15:00 Platele 292 142-424 complet t Bld 013 K/mm3 ed Ql 15:00 Manual MEAN 7.4 fl 7.4-10. complet PLATELE 013 4 ed T 15:00 VOLUME Granulo 57.3 % 37.0-80 complet cytes 013 .0 ed Fr Bld 15:00 Auto LYMPH % 01-05-2 32.4 % 10-50 complet 013 ed 15:00 Monocyt 01-05-2 5.9 % 1.7-9.3 complet es Fr 013 ed Bld 15:00 Auto Eosinop 01-05-2 3.6 % 0.1-12. complet hil Fr 013 0 ed Bld 15:00 Auto Basophi 01-05-2 0.8 % 0.1-2.0 complet ls Fr 013 ed Bld 15:00 Auto Granulo 2 4.9 1.3-8.0 complet cytes # 013 K/mm3 ed Bld 15:00 Auto Lymphoc 2 2.8 0.7-4.5 complet ytes Fr 013 K/mm3 ed Bld 15:00 Auto Monocyt 01-05-2 0.5 0.1-1.0 complet es # 013 K/mm3 ed Bld 15:00 Auto Eosinop 2 0.3 0.0-0.4 complet hil # 013 K/mm3 ed Bld 15:00 Auto Basophi 09-2 0.1 0-0.2 complet ls # 013 K/MM3 ed Bld 15:00 Auto Procedures Procedure DOS Code Location Performer Comment PRTBLE [id number] AYLIN AYLIN GASEOUS 4 HOME HOME O2 SYS [facility]; [facility]&M ASK O2 CONC 1 E1390 AYLIN VIERA DEL PORT 4 HOME HOME 85%/>02 MEDICAL MEDICAL CONC AT EQUIPME EQUIPST. [facility] FLW RATE PULMONARY 07116 UNIVERS UNIVERS STRESS 3 Y Y TESTING [facility] SIMPLE SPMTRY 71381 UN[facility]ERS UNIVERS W/VC [facility] W/WO MXML VOL VNTJ PRTBLE E0431 AYLIN AYLIN GASEOUS 3 HOME HOME O2 SYS MEDICAL MEDICAL RENT; EQUIPWY EQUIPWY FLWMTR HUMIDFR&M ASK O2 CONC 1 E1390 AYLIN VIERA DEL PORT 3 HOME HOME 85%/>02 MEDICAL MEDICAL CONC AT EQUIPME EQUIPST. [facility] FLW RATE NEBULIZER E0570 AYLIN VIERA WITH 3 HOME HOME COMPRESSO MEDICAL MEDICAL R EQUIPME EQUIPME THERAPEUT 43653 [place] IC PX 1/> 3 [facility] AREAS INC INC EACH 15 MIN EXERCISES E-STIM G0283 [place] [facility] 1/> AREAS 3 [facility] OTH THAN INC INC WND CARE PART TX PLAN E-STIM G0283 [place] [facility] 1/> AREAS 3 [facility] OTH THAN INC INC WND CARE PART TX PLAN THERAPEUT 79513 [place] IC PX 1/> 3 [facility] AREAS INC INC EACH 15 MIN EXERCISES APPLICATI 07677 [place] ON 3 [facility] MODALITY INC INC 1/> AREAS HOT/COLD PACKS CONTINUOU E0601 AYLIN VIERA S 3 HOME HOME POSITIVE MEDICAL MEDICAL AIRWAY EQUIPME EQUIPME PRESSURE DEVICE THERAPEUT 41007 [place] IC PX 1/> 3 [facility] AREAS INC INC EACH 15 MIN EXERCISES E-STIM G0283 [place] 1/> AREAS 3 [facility]OS[facility] OTH THAN INC INC WND CARE PART TX PLAN SMR PRIM 88383 [place] SRC 3 [facility] GRAM/GIEM INC INC SA STAIN BCT FUNGI/LEONIDES L SPUTUM 22217 [place] OBTAINING 3 [facility] SPEC INC INC AEROSOL INDUCED TX SPX CUL BACT 40450 [place] XCPT 3 [facility] URINE INC INC BLOOD/STO OL AEROBIC ISOL THERAPEUT 50822 [place] IC PX 1/> 3 [facility] AREAS INC INC EACH 15 MIN EXERCISES E-STIM G0283 [place] 1/> AREAS 3 [facility] OTH THAN [place] [address] [facility] HEAD/BRAI 3 MEDICAL N W/O SERV CONTRAST FOUNDATIO MATERIAL SBSQ 22561 [facility] 3 MEDICAL PRE CARE/DAY SERV 25 FOUNDATIO MINUTES RADIOLOGI 87027 [facility] C EXAM 3 MEDICAL CHEST 2 SERV VIEWS FOUNDATIO FRONTAL&L ATERAL RADIOLOGI 18627 [place] C EXAM 3 MEDICAL CHEST 2 SERV VIEWS FOUNDATIO FRONTAL&L ATERAL SBSQ 47096 [facility] 3 MEDICAL PRE CARE/DAY SERV 25 [place] [address] [place] INFUSION 3 [facility] THERAPY INC [place] [address] [place] INFUSION 3 [facility] THERAPY/P INC INC ROPHYLAXI S /DX 1ST TO 1 HR GROUND A0425 [facility] MILEAGE 3 AMBULANCE AMBULANCE [place] [address] [place] INFUSION 3 [facility] THER INC INC PROPH ADDL SEQUENTIA L TO 1 HR AMB A0427 [facility] SERVICE 3 AMBULANCE AMBULANCE ALS SERVICE SERVICE EMERGENCY TRANSPORT LEVEL 1 INITIAL 40692 [facility] 3 MEDICAL PRE CARE/DAY SERV 70 FOUNDATIO MINUTES RADIOLOGI 85142 [place] AYOOB AND C 3 MEDICAL EXAMINATI SERV ON CHEST FOUNDATIO [place] FRONTAL CUL BACT 57829 [place] XCPT 3 [facility] URINE INC INC BLOOD/STO OL AEROBIC ISOL CUL BACT 83781 [facility] COLEMAN AEROBIC 3 [facility] ADDL INC INC METHS DEFINITIV E EA ISOL SUSCEPTIB 39526 [place] LTY STDY 3 [facility] ANTIMICRB INC INC IAL MICRO/AGA R DILUTJ SMR PRIM 47863 [place] SRC 3 [facility] GRAM/GIEM INC INC SA STAIN BCT FUNGI/LEONIDES L IAADI 57531 [place] INFLUENZA 3 [facility] B VIRUS INC INC IAADI 39538 [place] INFFLUENZ 3 [facility] A A VIRUS INC INC E-STIM G0283 [place] CO[place] 1/> AREAS 3 [facility] OTH THAN INC INC WND CARE PART TX PLAN CULTURE 91872 [place] STEVENSON BACTERIAL 3 [facility] BLOOD INC INC AEROBIC W/[place] [address] V[place]IA VIR[place]IA TROPONIN 3 [facility] QUANTITAT INC INC COURTNEY BLOOD 27218 [place] CO[place] COUNT 3 [facility] COMPLETE INC INC AUTO&AUTO DIFRNTL WBC RADIOLOGI 04244 VIR[place]IA VIRGINIA C 3 [facility] EXAMINATI INC INC ON CHEST SINGLE VIEW FRONTAL ECG 52484 [place] BECERRIL ROUTINE 3 [facility] W/LEAST P 12 LDS I&R ONLY ECG 77284 [place]IA VIRGINIA ROUTINE 3 [facility] ECG INC INC W/LEAST 12 LDS TRCG ONLY W/O I&R THERAPEUT 88309 VIR[place]IA VIRGINIA IC PX 1/> 3 [facility] AREAS INC INC EACH 15 MIN EXERCISES PHYSICAL 99099 [place] THERAPY 3 [facility] EVALUATIO INC INC N CREATINE 17186 [place] KINASE 3 [facility] TOTAL INC INC CRITICAL 34642 [place] CARE 3 [facility] ILL/INJUR INC INC ED PATIENT INIT 30-74 MIN CREATINE 05258 [place] COLE[place] KINASE MB 3 [facility] FRACTION INC INC ONLY BLOOD 17202 [place] GASES ANY 3 [facility] INC INC COMBINATI ON PH PCO2 PO2 CO2 HCO3 BASIC 19353 [place] METABOLIC 3 [facility] PANEL INC INC CALCIUM TOTAL COMPREHEN 83882 LAB HEIDI LAB HEIDI SIVE 3 [facility] METABOLIC HOLDINGS HOLDINGS PANEL COLLECTIO 08756 LAB HEIDI LAB HEIDI N VENOUS 3 [facility] HOLDINGS VENIPUNCT URE BLOOD 90346 LAB HEIDI LAB HEIDI COUNT 3 [facility] COMPLETE HOLDINGS HOLDINGS AUTOMATED C-REACTIV 99678 LAB HEIDI LAB HEIDI E PROTEIN 3 [facility] HOLDINGS PRTBLE E0431 AYLIN VIERA GASEOUS 3 HOME HOME O2 SYS MEDICAL MEDICAL RENT; EQUIPME [facility] HUMIDFR&M ASK O2 CONC 1 E1390 AYLIN VIERA [place] 3 HOME HOME 85%/>02 MEDICAL MEDICAL CONC AT EQUIPME EQUIPME PRSC FLW RATE NEBULIZER E0570 AYLIN VIERA WITH 3 HOME HOME COMPRESSO MEDICAL MEDICAL R EQUIPME EQUIPME PULMONARY 56891 [place] CRUMP STRESS 3 MEDICAL TESTING SERV SIMPLE FOUNDATIO GASES 76428 [facility] BLOOD PH 3 Y Y [facility] [place] [address] [place] KET DIFFUSING 3 MEDICAL CAPACITY SERV F[place]ATIO PLETHYSMO 97412 [place] GRAPHY 3 MEDICAL MEDICAL LUNG SERV SERV VOLUMES FOUNDATIO FOUNDATIO W/WO AIRWAY RESIST SPMTRY 61692 [place] KET W/VC 3 MEDICAL EXPIRATOR SERV Y RACHEL FOUNDATIO W/WO MXML VOL VNTJ CT THORAX 39473 [facility] W/O 3 Y Y [facility] HOSPITAL MATERIAL ARTERIAL 93681 [facility] PUNCTURE 3 Y Y WITHDRAWA [facility] L BLOOD DX CONTINUOU E0601 AYLIN VIERA S 3 HOME HOME POSITIVE MEDICAL MEDICAL AIRWAY EQUIPME EQUIPME PRESSURE [facility]ICE [facility] 99038 [place] [facility] DISCHARGE 3 MEDICAL AJU HAZEL DAY SERV MANAGEMEN FOUNDATIO T 30 MIN/< THER 05211 [place] COLEMAN PROPH/DX 3 [facility] NJX IV INC INC PUSH SINGLE/1S T SBST/DRUG PRESSURIZ 94359 [place] COLE[place] ED/NONPRE 3 [facility] SSURIZED INC INC INHALATIO N TREATMENT GROUND A0425 [facility] MILEAGE 3 AMBULANCE AMBULANCE PER SERVICE SERVICE STATUTE MILE AMBULANCE A0429 [facility] SERVICE 3 AMBULANCE AMBULANCE BLS SERVICE SERVICE EMERGENCY TRANSPORT COMPREHEN 34692 [place] SIVE 3 [facility] METABOLIC INC INC PANEL RADIOLOGI 57718 [place] Harvey 3 [facility] EXAMINATI INC INC ON CHEST SING[place]IEW FRONTAL RADIOLOGI 03153 [facility] [place] C EXAM 3 MEDICAL CHEST 2 SERV VIEWS FOUNDATIO FRONTAL&L ATERAL ECG 53845 [place] ORDOÑEZ JR ROUTINE 3 [facility] W/LEAST P 12 LDS I&[place] [address] [place] ANGIOGRAP 3 MEDICAL HY CHEST SERV W/CONTRAS FOUNDATIO T/NONCONT RAST ECG 96288 [place] COLEMAN ROUTINE 3 [facility] ECG INC INC W/LEAST 12 LDS TRCG ONLY W/O I&R BLOOD 89623 [place] COLE[place] COUNT 3 [facility] COMPLETE INC INC AUTO&AUTO DIFRNTL WBC CULTURE 70070 [place] BACTERIAL 3 [facility] BLOOD INC INC AEROBIC W/ID ISOLATES SMR PRIM 86499 [place] COLE[place] SRC 3 [facility] GRAM/GIEM INC INC SA STAIN BCT FUNGI/LEONIDES L CUL BACT 99350 [place] COLE[place] XCPT 3 [facility] URINE INC INC BLOOD/STO OL AEROBIC ISOL CUL BACT 31462 [place] AEROBIC 3 [facility] ADDL INC INC METHS DEFINITIV E EA ISOL SUSCEPTIB 55262 [place] COLEAMN LTY STDY 3 [facility] ANTIMICRB INC INC IAL MICRO/AGA R DILUTJ ALBUTEROL J7620 YOUR YOUR TO 2.5 3 PHARMACY PHARMACY MG & Listar IPRATROPI UM BROM TO 0.5 MG PHRM Q0513 YOUR YOUR DISPENSIN 3 PHARMACY PHARMACY G FEE Listar INHALATIO N RX; PER 30 DAYS ADMN SET A7003 YOUR YOUR SM VOL 3 PHARMACY PHARMACY NONFILTR Listar PNEUMAT NEBULIZR DISPBL NEBULIZER E0570 AYLIN VIERA WITH 3 HOME HOME COMPRESSO MEDICAL MEDICAL R EQUIPME EQUIPME O2 CONC 1 E1390 AYLIN VIER[place] 3 HOME HOME 85%/>02 MEDICAL MEDICAL CONC AT EQUIPME EQUIPME PRSC FLW RATE PRTBLE E0431 AYLIN VIERA GASEOUS 3 HOME HOME O2 SYS MEDICAL MEDICAL RENT; EQUIPME EQUIPME FLWMTR HUMIDFR&M ASK RADIOLOGI 47842 [place] C EXAM 3 [facility] CHEST 2 INC INC VIEWS FRONTAL&L ATERAL CONTINUOU E0601 AYLIN VIERA S 3 HOME HOME POSITIVE MEDICAL MEDICAL AIRWAY EQUIPME EQUIPME PRESSURE DEVICE CREATINE 17542 [place] KINASE 3 [facility] TOTAL INC INC 3D 13592 [place] COLEMAN RENDERING 3 [facility] W/INTERP INC INC & [place] [address] [place] COLEMAN HEAD/BRAI 3 [facility] N W/O INC INC CONTRAST MATERIAL COMPREHEN 97342 [place] CO[place] SIVE 3 [facility] METABOLIC INC INC PANEL CREATINE 95046 [place] COLEMAN KINASE MB 3 [facility] FRACTION INC INC ONLY RHYTHM 65675 [place] ECG 1-3 3 [facility] LEADS INC INC TRACING ONLY W/O I&R ECG 66656 [place] ORDOÑEZ JR ROUTINE 3 [facility] W/LEAST P 12 LDS I&R ONLY ECG 92922 [place] COLE[place] ROUTINE 3 [facility] ECG INC INC W/LEAST 12 LDS TRCG ONLY W/O I&R BLOOD 77402 [place] COUNT 3 [facility] COMPLETE INC INC AUTO&[place] [address] [place] CO[place] TROPONIN 3 [facility] QUANTITAT INC INC COURTNEY PRTBLE E0431 AYLIN VIERA GASEOUS 3 HOME HOME O2 SYS MEDICAL MEDICAL RENT; EQUIPME EQUIPME FLWMTR HUMIDFR&M ASK O2 CONC 1 E1390 AYLIN VIERA DEL PORT 3 HOME HOME 85%/>02 MEDICAL MEDICAL CONC AT EQUIPME EQUIPME PRSC FLW RATE NEBULIZER E0570 AYLIN VIERA WITH 3 HOME HOME COMPRESSO MEDICAL MEDICAL R EQUIPME EQUIPME CONTINUOU E0601 AYLIN VIERA S 3 HOME HOME POSITIVE MEDICAL MEDICAL AIRWAY EQUIPME EQUIPME PRESSURE DEVICE FULL FACE A7030 AYLIN VIERA MASK 3 HOME HOME USED MEDICAL MEDICAL W/POS EQUIPME EQUIPME ARWAY PRESS DEVICE EA HEADGEAR A7035 AYLIN VIERA USED 3 HOME HOME W/POSITIV MEDICAL MEDICAL E AIRWAY EQUIPME EQUIPME PRESSURE DEVICE NEBULIZER E0570 AYLNI VIERA WITH 3 HOME HOME COMPRESSO MEDICAL MEDICAL R EQUIPME EQUIPME O2 CONC 1 E1390 AYLIN VIERA DEL PORT 3 HOME HOME 85%/>02 MEDICAL MEDICAL CONC AT EQUIPME EQUIPME PRSC FLW RATE PRTBLE E0431 AYLIN VIERA GASEOUS 3 HOME HOME O2 SYS MEDICAL MEDICAL RENT; EQUIPME EQUIPME FLWMTR HUMIDFR&M ASK PULM G0424 [place] [facility] REHAB 3 [facility] INCL EXER INC INC 1 HR PER SESS TO 2 PER DAY PULM G0424 [place] [facility] REHAB 3 [facility] INCL EXER INC INC 1 HR PER SESS TO 2 PER DAY CONTINUOU E0601 AYLIN VIERA S 3 HOME HOME POSITIVE MEDICAL MEDICAL AIRWAY EQUIPME EQUIPME PRESSURE DEVICE PULM G0424 [place] CO[place]MAN REHAB 3 [facility] INCL EXER INC INC 1 HR PER SESS TO 2 PER DAY PULM G0424 [facility] COLEMAN REHAB 3 [facility] INCL EXER INC INC 1 HR PER SESS TO 2 PER DAY PULM G0424 [facility] COLEMAN REHAB 3 [facility] INCL EXER INC INC 1 HR PER SESS TO 2 PER DAY PULM G0424 [facility] COLEMAN REHAB 3 [facility] INCL EXER INC INC 1 HR PER SESS TO 2 PER DAY PULM G0424 [place] REHAB 3 [facility] INCL EXER INC INC 1 HR PER SESS TO 2 PER DAY BLOOD 26959 LAB HEIDI LAB HEIDI COUNT 3 [facility] COMPLETE [facility]ING HOLDING AUTOMATED COLLECTIO 47834 LAB HEIDI LAB HEIDI N VENOUS 3 [facility] AMER[facility] BLOOD HOLDING HOLDING VENIPUNCT URE COMPREHEN 86346 LAB HEIDI LAB HEIDI SIVE 3 [facility] METABOLIC HOLDING HOLDING PANEL C-REACTIV 44146 LAB HEIDI LAB HEIDI E PROTEIN 3 [facility] [employer]ING HOLDING PULM G0424 [place] REHAB 3 [facility] INCL EXER INC INC 1 HR PER SESS TO 2 PER DAY PULM G0424 [place] REHAB 3 [facility] INCL EXER INC INC 1 HR PER SESS TO 2 PER DAY PRTBLE E0431 AYLIN VIERA GASEOUS 3 HOME HOME O2 SYS MEDICAL MEDICAL RENT; EQUIPME EQUIPME FLWMTR HUMIDFR&M ASK O2 CONC 1 E1390 AYLIN VIERA DEL [place] 3 HOME HOME 85%/>02 MEDICAL MEDICAL CONC AT EQUIPME EQUIPME PRSC FLW RATE NEBULIZER E0570 AYLIN VIERA WITH 3 HOME HOME COMPRESSO MEDICAL MEDICAL R EQUIPME EQUIPME PULM G0424 [place] REHAB 3 [facility] INCL EXER INC INC 1 HR PER SESS TO 2 PER DAY POLYSOM 31020 IVR[place] COLEMAN 6/>YRS 3 [facility] H[facility] SLEEP 4/> INC INC ADDL JOSE A ATTND PULM G0424 [place] [facility] REHAB 3 [facility] INCL EXER INC INC 1 HR PER SESS TO 2 PER DAY PULM G0424 [place] REHAB 3 [facility] INCL EXER INC INC 1 HR PER SESS TO 2 PER DAY PULM G0424 [place] REHAB 3 [facility] INCL EXER INC INC 1 HR PER SESS TO 2 PER DAY PULM G0424 [place] CO[place] REHAB 3 [facility] INCL EXER INC INC 1 HR PER SESS TO 2 PER DAY PULM G0424 [place] COLEMAN REHAB 3 [facility] INCL EXER INC INC 1 HR PER SESS TO 2 PER DAY PULM G0424 [place] REHAB 3 [facility] INCL EXER INC INC 1 HR PER SESS TO 2 PER DAY PULM G0424 [place] REHAB 3 [facility] INCL EXER INC INC 1 HR PER SESS TO 2 PER DAY PULM G0424 [place] COLEMAN REHAB 3 [facility] INCL EXER INC INC 1 HR PER SESS TO 2 PER DAY PULM G0424 [facility] COLEMAN REHAB 3 [facility] INCL EXER INC INC 1 HR PER SESS TO 2 PER DAY PULM G0424 [place] REHAB 3 [facility] INCL EXER INC INC 1 HR PER SESS TO 2 PER DAY STANDARD K0001 AYLIN VIERA WHEELCHAI 3 HOME HOME R MEDICAL MEDICAL EQUIPME EQUIPME BRNCDILAT 88351 [place] RSPSE 3 [facility] SPMTRY INC INC PRE&POST- BRNCDILAT ADMN PRTBLE E0431 AYLIN VIERA GASEOUS 3 HOME HOME O2 SYS MEDICAL MEDICAL RENT; EQUIPME EQUIPME FLWMTR HUMIDFR&M ASK GAS 90249 [place] CO[place] DILUT/WAS 3 [facility] HOUT LUNG INC INC VOL W/WO DISTRIB VENT&V NEBULIZER E0570 AYLIN VIERA WITH 3 HOME HOME COMPRESSO MEDICAL MEDICAL R EQUIPME EQUIPME O2 CONC 1 E1390 AYLIN VIERA [place] 3 HOME HOME 85%/>02 MEDICAL MEDICAL CONC AT EQUIPME EQUIPME PRSC FLW RATE CYANOCOBA 12082 [facility] CLARISSE 3 Y Y VITAMIN [facility] B-12 [place] [address] [facility] FOLIC 3 Y Y ACID RBC [facility] COMPREHEN 94379 [facility] SIVE 3 Y Y METABOLIC [facility] PANEL IRON 44354 [facility] UNIVERS BINDING 3 Y Y CAPACITY [facility] PREALBUMI 15276 [facility] UNIVERS N 3 Y Y [facility] BLOOD 66716 [facility] UNIVERS COUNT 3 Y Y COMPLETE [facility] AUTO&AUTO DIFRNTL WBC RHEUMATOI 29970 [facility] UNIVERS D FACTOR 3 Y Y QUANTITAT [facility] COURTNEY ANTINUCLE 74977 [facility] LAB HEIDI AR 3 Y AMERIC ANTIBODIE [facility] HOLDING S [place] FLUORESCE 29014 [facility] NT 3 Y Y NONNFCT [facility] AGT ANTB SCREEN EA ANTIBODY COLLECTIO 29943 [facility] UNIVERS N VENOUS 3 Y Y BLOOD [facility] VENIPUNCT URE RADIOLOGI 91214 [place] ISA SARAH C EXAM 3 MEDICAL CHEST 2 SERV VIEWS FOUNDATIO FRONTAL&L ATERAL STANDARD K0001 AYLIN YOUNGCHAI 3 HOME HOME R MEDICAL MEDICAL EQUIPME EQUIPME PRTBLE E0431 AYLIN AYLIN GASEOUS 3 HOME HOME O2 SYS MEDICAL MEDICAL RENT; EQUIPME EQUIPME FLWMTR HUMIDFR&M ASK O2 CONC 1 E1390 AYLIN AYLIN DEL [place] 3 HOME HOME 85%/>02 MEDICAL MEDICAL CONC AT EQUIPME EQUIPME PRSC FLW RATE NEBULIZER E0570 AYLIN AYLIN WITH 3 HOME HOME COMPRESSO MEDICAL MEDICAL R EQUIPME EQUIPME POLYSOM 94358 [place] COLEMAN 6/>YRS 3 [facility] H[facility] SLEEP INC INC W/CPAP 4/> ADDL [facility] 30677 [facility] 3 MEDICAL JAG DAY SERV MANAGEMEN FOUNDATIO T 30 MIN/< SBSQ 87268 [facility] 3 MEDICAL JAG CARE/DAY SERV 25 FOUNDATIO MINUTES RADEX ABD 11894 [place] DISANTIS COMPL 3 MEDICAL SIDDHARTHA AQT ABD SERV W/S/E/D FOUNDATIO VIEWS 1 VIEW CH RADEX ABD 05712 [place] JES[place] JAM COMPL 3 MEDICAL AQT ABD SERV W/S/E/D [place] V[place] 1 [place] [address] [place] SOHEIL[place] ABDOMINAL 3 MEDICAL DEENA REAL SERV TIME FOUNDATIO W/IMAGE LIMITED INITIAL 59995 [facility] 3 Y OF MARION CARE/DAY [place] 70 INTER MINUTES FULL FACE A7030 AYLIN VIERA MASK 3 HOME HOME USED MEDICAL MEDICAL W/POS EQUIPME EQUIPME ARWAY PRESS DEVICE EA STANDARD K0001 AYLIN AYLIN ALEJANDROI 3 HOME HOME R MEDICAL MEDICAL EQUIPME EQUIPME PRTBLE E0431 AYLIN AYLIN GASEOUS 3 HOME HOME O2 SYS MEDICAL MEDICAL RENT; EQUIPME EQUIPME FLWMTR HUMIDFR&M ASK NEBULIZER E0570 AYLIN VIERA WITH 3 HOME HOME COMPRESSO MEDICAL MEDICAL R EQUIPME EQUIPME O2 CONC 1 E1390 AYLIN VIERA [place] 3 HOME HOME 85%/>02 MEDICAL MEDICAL CONC AT EQUIPME EQUIPME PRSC FLW RATE SEAT E0156 AYLIN VIERA ATTACHMEN 3 HOME HOME T WALKER MEDICAL MEDICAL EQUIPME EQUIPME WALKER E0143 AYLIN VIERA FOLDING 3 HOME HOME WHEELED MEDICAL MEDICAL ADJUSTABL EQUIPME EQUIPME E/FIXED HEIGHT DUP-SCAN 66687 JERRI JERRI XTR VEINS 3 ESPERANZA ESPERANZA COMPLETE BILATERAL STUDY RADIOLOGI 57397 [facility] [place] KOSTELIC C EXAM 3 RADIOLOGY MONTSERRAT CHEST 2 VIEWS FRONTAL&L ATERAL RADIOLOGI 15384 [facility] [place] NOEL C EXAM 3 RADIOLOGY GODFREY CHEST 2 VIEWS FRONTAL&L ATERAL MRI BRAIN 37182 T[facility]AS LUKINS BRAIN 3 MEDICAL TIERRA STEM W/O SERV CONTRAST FOUNDATIO MATERIAL SBSQ 92015 [facility] 3 E CARE CARE/DAY CTR OF 15 THE B MINUTES [facility] 87044 T[facility]AS HARLEY INCL 3 MEDICAL OSCAR FLUOR SERV GDNCE DX FOUNDATIO W/CELL WASHG SPX SBSQ 94928 [facility] 3 E CARE CARE/DAY CTR OF 25 THE B MINUTES CLOSED 3324 [facility] BIOPSY OF 3 Y Y [facility] VENOUS 3893 [facility] CATHETER 3 Y Y ZATION [facility] NOT ELSEWHERE CLASSIFIE D ECG 47987 [facility] CHI ROUTINE 3 MEDICAL ECG SERV W/LEAST FOUNDATIO 12 LDS I&R ONLY ECG 24973 [facility] HU ROUTINE 3 MEDICAL NAN ECG SERV W/LEAST FOUNDATIO 12 LDS I&R ONLY CONTINUOU E0601 AYLIN VIERA S 2 HOME HOME POSITIVE MEDICAL MEDICAL AIRWAY EQUIPME EQUIPME PRESSURE DEVICE THORACOSC 3320 [facility] LUNG 2 Y Y BIOPSY [facility] STANDARD K0001 AYLIN YOUNGCHAI 2 HOME HOME R MEDICAL MEDICAL EQUIPME EQUIPME ECG 07465 [facility]AS ROQUE CHI ROUTINE 2 MEDICAL ECG SERV W/LEAST FOUNDATIO 12 LDS I&R ONLY ECG 42239 TARAS ROSA CHET ROUTINE 2 MEDICAL ECG SERV W/LEAST FOUNDATIO 12 LDS I&R ONLY ECG 73896 [place] RO[place] CHI ROUTINE 2 MEDICAL ECG SERV W/LEAST FOUNDATIO 12 LDS I&R ONLY ECG 98944 TARAS HU ROUTINE 2 MEDICAL NAN ECG SERV W/LEAST FOUNDATIO 12 LDS I&R ONLY CONT 9671 [facility] 2 Y Y [facility] < 96 CONSECUTI VE HOURS INSERTION 9604 [facility] 2 Y Y [facility] EAL TUBE RADIOLOGI 89304 [place] DAWNA 2 MEDICAL TIERRA EXAMINATI IMAGING ON CHEST ASS SINGLE VIEW FRONTAL RADIOLOGI 18012 [place] DA[place] C 2 MEDICAL TIERRA EXAMINATI IMAGING ON CHEST ASS SINGLE VIEW FRONTAL ADMN SET A7003 YOUR YOUR SM VOL 2 PHARMACY PHARMACY NONFILTR Listar PNEUMAT NEBULIZR DISPBL ALBUTEROL [id number] YOUR YOUR TO 2.5 2 PHARMACY [facility] IPRATROPI UM BROM TO 0.5 MG PHARM [id number] YOUR YOUR DISPEN 2 PHARMACY PHARMACY FEE INHAL Listar RX; INITIAL 30-DAY SUPPLY ECG 65466 [facility] ROUTINE 2 EMERGENCY VENUS ECG SERVICES W/LEAST 12 LDS I&R ONLY RADIOLOGI 98561 [facility] EXAM 2 MEDICAL TIERRA CHEST 2 IMAGING VIEWS ASS FRONTAL&L ATERAL [facility] PRIM [address] [facility] SRC CPLX 2 N N SPEC [facility] STAIN HOSPITA HOSPITA OVA&CHAD ITS OVA&CHAD [address] [facility] ITES 2 N N DIRECT [facility] HOSPITA HOSPITA CONCENTRA TION & ID SMR PRIM [address] [facility] SRC 2 N N GRAM/GIEM [facility] SA STAIN HOSPITA HOSPITA BCT FUNGI/LEONIDES L BLOOD [address] [facility] OCCULT 2 N N PEROXIDAS [facility] E ACTV HOSPITA HOSPITA QUAL FECES 1-3 SPEC BLOOD 09907 [facility] OCCULT 2 N [place]ALYAN N [place] PEROXIDAS E ACTV QUAL FECES 1 DETER COMPREHEN 64723 [facility] SIVE 2 [facility] [employer] [facility] PANEL BLOOD 06946 [facility] COUNT 2 [employer] [employer] AUTOMATED COLLECTIO 23136 [facility]IDI N VENOUS 2 [employer] B[employer] HOLDING VENIPUNCT URE C-REACTIV 27476 [facility]IDI E PROTEIN 2 [employer] C-REACTIV 90172 [facility] LAB HEIDI E PROTEIN 1 [employer] COLLECTIO 44403 [facility] LAB HEIDI N VENOUS 1 [employer] B[employer]OD [employer] HOLDING VENIPUNCT URE BLOOD 88029 LAB HEDII LAB HEIDI COUNT 1 [employer]ING AUTOMATED COMPREHEN 68276 LAB [facility] LAB HEIDI SIVE 1 [employer] PANEL WALKING L4360 [employer], [employer] BOOT 1 PNEUMATC &/ VACUUM PREFAB CUSTM FIT RADEX 15423 [place] JAM ANKLE 1 MEDICAL COMPLETE SERV MINIMUM 3 FOUNDATIO VIEWS COLLECTIO 79621 [facility] N VENOUS 1 [facility] BLOOD VENIPUNCT URE LIPID 12823 [facility] PANEL 1 [facility] TRANSFERA 65640 [facility] SE 1 [place] [facility] [employer] ASPARTATE AMINO AST SGOT CAST Q4038 [place] SUPPLIES 1 MEDICAL KAMALA SHORT LEG SERV CAST FOUNDATIO ADULT FIBERGLAS S RADIOLOGI 31008 [place] HUMMEL C 1 MEDICAL GODFREY EXAMINATI SERV ON FOOT 2 FOUNDATIO VIEWS APPLICATI 99879 [place] SHORT 1 MEDICAL MEDICAL LEG CAST SERV SERV WALKING/A FOUNDATIO FOUNDATIO MBULATORY CAST Q4038 [place] SUPPLIES 1 MEDICAL [place] SHORT LEG SERV CAST FOUNDATIO ADULT FIBERGLAS S APPLICATI 54994 [place] SHORT 1 MEDICAL MEDICAL LEG CAST SERV SERV BELOW FOUNDATIO FOUNDATIO KNEE-TOE [facility] G0378 [facility] OBSERVATI 0 Y Y ON HOSPITAL HOSPITAL SERVICE PER HOUR PHYSICAL 90505 [facility] THERAPY 0 Y [place] [address] TARAS BURKETTROBERTOKAVEH GUIDANCE 0 MEDICAL JUS NEEDLE SERV PLACEMENT FOUNDATIO IMG S&I ANESTHESI 47049 TARAS JUDITHDAMIANKAVEH A ON BONY 0 MEDICAL JUS PELVIS SERV FOUNDATIO BONE [facility] GRAFT ANY 0 Y Y DONOR HOSPITAL HOSPITAL AREA MAJOR/LAR GE FLUOROSCO 43366 [facility] PY SPX >1 0 Y Y [facility] HOSPITAL PHYS/QHP TIME INJECTION 81522 [facility] MEDICAL JUS ANESTHETI SERV C AGENT FOUNDATIO SCIATIC NRV SINGLE INJECTION 98722 [facility] 0 MEDICAL JUS ANESTHETI SERV C AGENT FOUNDATIO FEMORAL NERVE SINGLE ARTHRODES 61284 [facility] IS 0 Y Y [facility]BT[facility]AR [facility] CULTURE 68399 LAB HEIDI LAB HEIDI BACTERIAL 0 AMERIC AMERIC ANY HOLDING HOLDING SOURCE ANAEROBIC ISO&ID CUL BACT 28468 LAB [facility] LAB HEIDI XCPT 0 AMERIC AMERIC URINE HOLDING HOLDING BLOOD/STO OL AEROBIC ISOL SMR PRIM 67056 [facility]I SRC 0 AMERIC AMERIC GRAM/GIEM HOLDING HOLDING SA STAIN BCT FUNGI/LEONIDES L BLOOD 03429 [place] [facility] 0 [facility] COMPLETE INC INC AUTO&[place] [address] [place] [facility] TROPONIN 0 [facility] QUANTITAT INC INC COURTNEY ECG 27980 [place] MARTINEZKEMIE ROUTINE 0 [facility] W/LEAST P 12 LDS I&R ONLY ECG 47197 [place] [facility] ROUTINE 0 [facility] ECG INC INC W/LEAST 12 LDS TRCG ONLY W/O I&R CREATINE 27126 [place] [facility] KINASE MB 0 [facility] FRACTION INC INC ONLY BASIC 66673 [place] [facility] METABOLIC 0 [facility] PANEL INC INC CALCIUM TOTAL PRESSURIZ 54395 [place] [facility] ED/NONPRE 0 [facility] SSURIZED INC INC INHALATIO N TREATMENT RADIOLOGI 20450 [place] C 0 [facility] EXAMINATI INC INC ON CHEST SINGLE VIEW FRONTAL THER 90031 [place] PROPH/DX 0 [facility] NJX IV INC INC PUSH SINGLE/1S T SBST/DRUG CREATINE 82438 [place] KINASE 0 [facility] TOTAL INC INC 3D 70472 [place] RENDERING 0 [facility] INC INC W/INTERP& POSTPROC DIFF WORK STATION DUP-SCAN 26931 [place] XTR VEINS 0 [facility] INC INC UNILATERA L/LIMITED STUDY CT LOWER 28978 [place] EXTREMITY 0 [facility] W/O INC INC CONTRAST MATERIAL INJECTION J1040 MONICA REYNOLDSBERTSO 9 N, GEREMIAS DOUGHERTY DNISOLONE ACETATE 80 MG CV STRS 09612 MONICA ANDERSON TST 9 N, GEREMIAS DOUGHERTY&/OR RX CONT ECG W/O I&R CV STRS [address] [facility] TST 9 N N XERS&/OR [facility] RX CONT [facility] ECG TRCG ONLY MYOCRD 72289 [facility]D 9 N [facility] PHYS PSC MOTION QUAL/RENEE STD TECHNETIU A9500 [facility] TC-99M 9 N N SESTAMIBI [facility] DX PER [facility] HOSPITAL STUDY DOSE MYOCRD 40740 [facility] STD 9 N N EJEC FXJ [facility] BLOOD 80649 MONICA MOSLEYO OCCULT 9 N, GEREMIAS DOUGHERTY PEROXIDAS E ACTV QUAL FECES 1 DETER MYOCRD 03396 [facility] IMG 9 N N TOMOG [facility] SPECT VICTIMS ADVOCATE CLERK/SPECIALIST [facility] STD CV STRS 45856 MONICA ANDERSON TST 9 N, GEREMIAS DOUGHERTY&/OR RX CONT ECG I&[place] [address] [facility] IRON 9 [facility] IRON 25373 [facility] BINDING 9 [facility] CAPACITY COLLECTIO 13396 [facility] N VENOUS 9 [facility] BLOOD VENIPUNCT URE COLLECTIO 12481 [facility] N VENOUS 9 [facility] BLOOD VENIPUNCT URE BLOOD 58163 [facility] COUNT 9 [facility] COMPLETE AUTO&AUTO DIFRNTL WBC INFLUENZA G9141 CULBERTSO CULBERTSO A H1N1 9 N, GEREMIAS N, GEREMIAS IMMUNIZAT ION ADMINISTR ATION PWR E2365 ALLIED ALLIED WHLCHAIR 9 HOME HOME ACSS U-1 MEDICAL, MEDICAL, SEALED INC. INC. LEAD ACID BATTRY EA REPR/SRVC [id number] ALLIED ALLIED DME NOT 9 HOME HOME O2 RQR MEDICAL, MEDICAL, TECH INC. INC. CMPNT PER 15 MINS SMR PRIM 76596 [facility] LAB HE[facility]I SRC 9 AMERIC AMERIC GRAM/GIEM HOLDING HOLDING SA STAIN BCT FUNGI/LEONIDES L SUSCEPTIB 67600 [facility] LTY STDY 9 AMERIC AMERIC ANTIMICRB HOLDING HOLDING IAL MICRO/AGA R DILUTJ CULTURE 18138 [facility] HE[facility]I BACTERIAL 9 AMERIC AMERIC ANY HOLDING HOLDING SOURCE ANAEROBIC ISO&ID CUL BACT 09641 [facility]I XCPT 9 AMERIC AMERIC URINE HOLDING HOLDING BLOOD/[place] [address] [facility] PROSTATE 9 [facility] SPECIFIC ANTIGEN TOTAL COLLECTIO 64353 [facility] N VENOUS 9 [facility] BLOOD VENIPUNCT URE COMPREHEN 10406 [facility] SIVE 9 [facility] METABOLIC PANEL LIPID 65566 [facility] PANEL 9 [facility] FLUOROSCO 83727 [facility] PY SPX >1 9 Y [facility] PHYS/QHP TIME REMOVAL 12393 [place] JUAN, IMPLANT 9 MEDICAL TONO J DEEP SERV FOUNDATIO INJECTION J2175 [facility] 9 Y Y [facility] E HCL PER 100 MG RINGERS J7120 [facility] LACTATE 9 Y Y [facility] UP TO 1000 CC INJECTION J3010 [facility] FENTANYL 9 Y Y [facility] 0.1 MG CUL BACT 67790 [facility] XCPT 9 Y Y URINE [facility]OSPITAL HOSPITAL BLOOD/STO OL AEROBIC ISOL SMR PRIM 01013 [facility] SRC 9 Y Y GRAM/GIEM HOSPITAL HOSPITAL SA STAIN BCT FUNGI/LEONIDES L INJECTION J2270 [facility] MORPHINE 9 Y Y [facility] UP TO 10 MG INJECTION J0690 [facility] 9 Y Y CEFAZOLIN [facility] SODIUM 500 [place] I [address] TARAS RUIZ, SURG 9 MEDICAL FAUSTINO PATHOLOGY SERV GROSS FOUNDATIO EXAMINATI ON ONLY BLOOD 31235 [facility] COUNT 9 Y Y COMPLETE [facility] AUTOMATED ECG 47627 [facility] ROUTINE 9 Y Y ECG [facility] W/LEAST 12 LDS TRCG ONLY W/O I&R RADEX 08619 [facility] FOOT 9 Y Y COMPLETE [facility] MINIMUM 3 VIEWS COLLECTIO 14198 [facility] N VENOUS 9 Y Y BLOOD [facility] VENIPUNCT URE ECG 26442 TARAS CHASE, ROUTINE 9 MEDICAL MARIXA G ECG SERV W/LEAST FOUNDATIO 12 LDS I&R ONLY BASIC 22409 [facility] METABOLIC 9 Y Y PANEL HOSPITAL HOSPITAL CALCIUM TOTAL ARTHROCEN 46036 [facility] MAKSIM TESIS 9 LTH II, NESHA ASPIR&/IN ORTHOPAED A J MAJOR IC JT/BURSA SURGEONS W/O US PSC COLLECTIO 26260 [facility] N VENOUS 9 Y Y BLOOD HOSPITAL [facility] VENIPUNCT URE SMR PRIM 03212 [facility] SRC 9 Y Y GRAM/GIEM HOSPITAL [facility] SA STAIN BCT FUNGI/LEONIDES L CUL BACT 66006 [facility] XCPT 9 Y Y URINE HOSPITAL HOSPITAL BLOOD/STO OL AEROBIC ISOL INJ J0702 [facility] MAKSIM BETAMETHA 9 LTH II, NESHA REARDONE ORTHOPAED A ACETATE & IC SURGEONS PHOSPHATE PSC 3 MG CELL 88941 [facility] COUNT 9 Y Y [facility] FLUIDS W/DIFFERE NTIAL COUNT PWR E2365 ALLIED ALLIED WHLCHAIR 9 HOME HOME ACSS U-1 MEDICAL, MEDICAL, SEALED INC. INC. LEAD ACID BATTRY EA REP/NONRO E1340 ALLIED ALLIED UTINE 9 HOME HOME SRVC DME MEDICAL, MEDICAL, RQR SKL INC. INC. TECH LABR-15 MIN SBSQ 27196 [facility] 8 EMERGENCY N, CARE/DAY SERVICES TADARRO 25 MINUTES ASSOCIATE S INITIAL 78753 [facility] INPATIENT 8 EMERGENCY N, CONSULT SERVICES TADARRO NEW/ESTAB PT 110 ASSOCIATE MIN S ANESTH 51794 KRANTHI CARDOZO 8 [facility] REEMA Harvey ANESTHESI ARTHROSCO A PSC PIC PROC KNEE JOINT LEVEL III 04380 [place] ANN, SURG 8 MEDICAL TIM E PATHOLOGY SERV FOUNDATIO GROSS&VENUS ROSCOPIC EXAM COLONOSCO 46065 [facility], PY FLX DX 8 [place] RICHY G W/COLLJ GASTROENT SPEC WHEN PFRMD ANES 86066 [place] HIRO, [facility] 8 ANESTHESI JENNIFER Vieira INTESTINE A GROUP PSC ENDOSCOPY DISTAL DUODENUM CUL BACT 54812 [facility] XCPT 8 Y Y URINE [facility] BLOOD/STO OL AEROBIC ISOL SMR PRIM 25197 [facility] SRC 8 Y Y GRAM/GIEM [facility] SA STAIN BCT FUNGI/LEONIDES L CELL 51761 [facility] COUNT 8 Y Y [facility] FLUIDS W/DIFFERE NTIAL COUNT ALBUTEROL J7620 PULMO PULMO TO 2.5 8 DOSE DOSE MG & PHARMACY PHARMACY IPRATROPI UM BROM TO 0.5 MG PHRM Q0514 PULMO PULMO DISPENSIN 8 DOSE DOSE G FEE PHARMACY PHARMACY INHALATIO N RX; PER 90 DAYS SMALL A7004 PULMO PULMO VOLUME 8 DOSE DOSE NONFILTR PHARMACY PHARMACY PNEUMATIC NEBULIZER DISPBL ADMN SET A7003 PULMO PULMO SM VOL 8 DOSE DOSE NONFILTR PHARMACY PHARMACY PNEUMAT NEBULIZR DISPBL ADMN SET A7003 PULMO PULMO SM VOL 8 DOSE DOSE NONFILTR PHARMACY PHARMACY PNEUMAT NEBULIZR DISPBL SMALL A7004 PULMO PULMO VOLUME 8 DOSE DOSE NONFILTR PHARMACY PHARMACY PNEUMATIC NEBULIZER DISPBL PHRM Q0513 PULMO PULMO DISPENSIN 8 DOSE DOSE G FEE PHARMACY PHARMACY INHALATIO N RX; PER 30 DAYS ALBUTEROL J7620 PULMO PULMO TO 2.5 8 DOSE DOSE MG & PHARMACY PHARMACY IPRATROPI UM BROM TO 0.5 MG DUP-SCAN [address] [facility] LXTR 8 N N ART/[facility] COMPL BI STUDY ALBUTEROL J7620 PULMO PULMO TO 2.5 8 DOSE DOSE MG & PHARMACY PHARMACY IPRATROPI UM BROM TO 0.5 MG PHRM Q0513 PULMO PULMO DISPENSIN 8 DOSE DOSE G FEE PHARMACY PHARMACY INHALATIO N RX; PER 30 DAYS PHRM Q0513 PULMO PULMO DISPENSIN 8 DOSE DOSE G FEE PHARMACY PHARMACY INHALATIO N RX; PER 30 DAYS ALBUTEROL J7620 PULMO PULMO TO 2.5 8 DOSE DOSE MG & PHARMACY PHARMACY IPRATROPI UM BROM TO 0.5 MG SMALL A7004 PULMO PULMO VOLUME 8 DOSE DOSE NONFILTR PHARMACY PHARMACY PNEUMATIC NEBULIZER DISPBL ADMN SET A7003 PULMO PULMO SM VOL 8 DOSE DOSE NONFILTR PHARMACY PHARMACY PNEUMAT NEBULIZR DISPBL RADIOLOGI 50890 MAKSIM MAKSIM C EXAM 8 II, NESHA II, NESHA KNEE A A COMPLETE 4/MORE VIEWS RADIOLOGI 24586 MAKSIM MAKSIM C 8 II, NESHA II, NESHA EXAMINATI A A ON KNEE 1/2 VIEWS PHRM Q0513 PULMO PULMO DISPENSIN 8 DOSE DOSE G FEE PHARMACY PHARMACY INHALATIO N RX; PER 30 DAYS ALBUTEROL J7620 PULMO PULMO TO 2.5 8 DOSE DOSE MG & PHARMACY PHARMACY IPRATROPI UM BROM TO 0.5 MG Encounters Encounter Start End Date Code Location Performer Type Date [facility] 3 3 Y [facility] [place] 3 3 [facility] [place] 3 3 [facility] OUTPATIEN [facility] EMERGENCY 74181 TARAS SALAZAR DEPT 3 3 MEDICAL JORGE VISIT SERV HIGH FOUNDATIO SEVERITY& THREAT [facility] [place] [address] 3 Y INPATIENT HOSPITAL Emergency NICOLÁS Keene MD (ER) 3 22:37 3 00:59 [facility] [place] - 3 3 [facility] OUTPATIEN [facility] OFFICE 26828 [facility] 3 3 CENTER T VISIT OF 25 [facility] Y [facility] Emergency NICOLÁS Millard MD (ER) 3 15:20 3 17:49 [facility] [place] - 3 3 [facility] OUTPATIEN [facility] EMERGENCY 62894 [place] DEPT 3 3 MEM HOSP VISIT INC [facility]IGH SEVERITY& THREAT [facility] [place] - 3 3 [facility] OUTPATIEN [facility] T OFFICE 77821 Avtar [facility] 3 3 FILEMON IBRAHIM JE T VISIT PSC 15 MINUTES Emergency NICOLÁS Millard MD (ER) 3 14:54 3 16:00 [facility] EMERGENCY 67859 [place] 3 3 [facility] DEPARTMEN [facility] T VISIT HIGH/URGE NT [facility] [place] - 3 3 [facility] OUTPATIEN INC T EMERGENCY 93181 POPPY SANTA DEPT 3 3 EMERGENCY VISIT SERVICES HIGH SEVERITY& THREAT [facility] OFFICE 73395 ARTHRITIS ALBERTO RIT OUTPATIEN 3 3 CENTER T VISIT OF 25 [facility] OFFICE 90580 [facility] 3 3 FILEMON SHAH T VISIT PSC 15 [facility] [place] - 3 3 [facility] OUTPATIEN [facility] OFFICE 65991 ARTHRITIS ALBERTO RIT OUTPATIEN 3 3 CENTER T VISIT OF 10 [facility] 3 3 [facility] OUTPATIKENT HOSPITAL [place] - 3 3 [facility] OUTPATIEN [facility] OFFICE 21917 ARTHRITIS ALBERTO RIT OUTPATIEN 3 3 CENTER T VISIT OF 25 [facility] - 3 3 [facility] OUTPATIEN [facility] OFFICE 03678 [facility] 3 3 MEDICAL JAM T VISIT SERV 40 [facility] [address] [place] - 3 3 [facility] EMERGENCY 00747 TARAS LANTIGUA DEPT 3 3 MEDICAL ONLINE MEDIA BUYER VISIT SERV HIGH FOUNDATIO SEVERITY& THREAT [facility] [place] [address] [facility] OFFICE 17416 TARAS GATES [facility] 3 3 MEDICAL YATACO T VISIT SERV ANG 25 [facility] [address] EMERGENCY 09747 POPPY KEENE DEPT 2 2 EMERGENCY VENUS VISIT SERVICES HIGH SEVERITY& THREAT [facility] EMERGENCY 51710 POPPY SANTA DEPT 2 2 EMERGENCY VISIT SERVICES HIGH SEVERITY& THREAT [facility] - 2 2 N [facility] HOSPITA OFFICE 42451 CULBERTSO CULBERTSO OUTPATIEN 2 2 N KALYAN N KALYAN T VISIT 15 MINUTES OFFICE 06767 CULBERTSO CULBERTSO OUTPATIEN 1 1 N KALYAN N KALYAN T VISIT 15 MINUTES HOSPITAL UNIVERSIT - 1 1 Y [facility] UNIVERS[facility] - 1 1 Y [facility] UNIVERSIT - 0 0 Y [facility] OFFICE 40051 CULBERTSO CULBERTSO OUTPATIEN 0 0 N KALYAN N KALYAN T VISIT 15 MINUTES OFFICE 51526 TARAS BUENOPATIEN 0 0 MEDICAL KAMALA T VISIT SERV 15 FOUNDATIO [facility] [place] - [address] [facility] T EMERGENCY 59707 POPPY MORRISSEY DEPT 0 0 EMERGENCY III TRISTA VISIT SERVICES HIGH SEVERITY& THREAT [facility] EMERGENCY 02706 [place] 0 0 [facility] DEPARTMEN INC T VISIT MODERATE SEVERITY OFFICE 90792 TARAS MARTINEZ OUTPATIEN 0 0 MEDICAL KAMALA T VISIT SERV 15 FOUNDATIO MINUTES EMERGENCY 82969 [place] 0 0 [facility] DEPARTMEN INC T VISIT LOW/MODER SEVERITY [facility]PITAL [place] - 0 0 [facility] OUTPATIEN INC T OFFICE 09399 CULBERTSO CULBERTSO OUTPATIEN 9 9 N, GEREMIAS DOUGHERTY VISIT 15 MINUTES HOSPITAL [facility] - 9 9 N [facility] OFFICE 51268 CULBERTSO CULBERTSO OUTPATIEN 9 9 N, GEREMIAS DOUGHERTY VISIT 15 MINUTES OFFICE 54516 CULBERTSO CULBERTSO OUTPATIEN 9 9 GEREMIAS Bautista ROBERT T VISIT 25 MINUTES OFFICE 48873 [facility] 9 GEREMIAS Bautista ROBERT T VISIT 15 MINUTES HOSPITAL [facility] - 9 9 Y [facility] T OFFICE [address]506 [place] JUAN, CONSULTMIKE 9 9 MEDICAL TONO J ION SERV NEW/ESTAB FOUNDATIO PATIENT 40 MIN HOSPITAL UNIVERSIT - 9 9 Y [facility] T OFFICE 52140 [facility] 9 9 [facility] NESHA CLEMONS VISIT ORTHOPAED A 15 IC MINUTES SURGEONS [facility] UNIVERSIT - 9 9 Y [facility] UNIVERSIT - 8 8 Y [facility] T OFFICE 61703 [facility] 8 NGEREMIAS ROBERT T VISIT 15 MINUTES HOSPITAL [facility] - 8 8 N [facility] 05254 MAKSIM SCHAEFFER [facility] 8 8 NESHA CLEMONS II, GLEN T VISIT A A 15 MINUTES
--- OUTSIDE RECORDS SUMMARY | 2016-09-26 10:36 | External Medical Summary Rpt ---
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 Un[facility] Unavailable [place], [facility] [place] AYOOB AND, AYOOB AND Unavailable Unavailable BESSON KAMALA, BESSON Unavailable Unavailable KAMALA SOHEILA DEENA, Unavailable Unavailable SOHEILA DEENA [facility] Unavailable Unavailable SERVICE, [facility] SERVICE [facility] Unavailable Unavailable SERVICE, [facility]ICE CAMILLE KET, CAMILLE KET Unavailable Unavailable GRZEGORZ FIRE PREVENTION SPECIALIST, GRZEGORZ Unavailable Unavailable FIRE PREVENTION SPECIALIST TITI JAG, TITI Unavailable Unavailable FAUSTINO MCDOWELL, [...] NAN JESSICA VENUS, JESSICA Unavailable Unavailable VENUS [facility] Unavailable Unavailable HOSPITA, [facility] Unavailable [facility]available [facility], [facility], [facility] Unavailable Unavailable [facility] Unavailable Unavailable INC, [facility] Unavailable Unavailable HOSPITAL P, [facility] P DUBOIS KAMALA, DUBOIS KAMALA Unavailable Unavailable MARIXA CHASE, RENA, Unavailable Unavailable MARIXA G [facility] Unavailable Unavailable IM[facility], [facility] [...] HOLDINGS, [facility], Unavailable Unavailable [facility] JUAN KAMALA, Unavailable Unavailable TONO PONCE, Unavailable Unavailable TONO MARTINEZ HAYWOOD MARION, HAYWOOD Unavailable Unavailable MARION JESICA JAM, JESICA JAM Unavailable Unavailable TIAGO JR DWI, TIAGO Unavailable Unavailable JR DWI LUKINS TIERRA, LUKINS Unavailable Unavailable TIERRA [facility] Unavailable Unavailable SERVICES, [facility] MAKSIM II, NESHA A, Unavailable [...] Unavailable Unavailable SHAJI POWELL Unavailable Unavailable PRE [facility], Unavailable Unavailable [facility] Unavailable Unavailable [facility] INTER GERALD MINA, Unavailable Unavailable ALEJO STRICKLAND, [...] OBSTRUCTION MEDICAL NEC EQUIPME 515 POSTINFLAMM 03-19-2013 [place] [facility] PULMONARY [facility]AT[facility] FIBROSIS 7245 UNSPECIFIED 03-19-2013 [facility] 03542 OTHER 03-19-2013 [facility] [place] [address] OBSTRUCTIVE 03-10-2013 [facility] APNEA MEDICAL EQUIPME 92522 OTHER 03-07-2013 [place] DISEASES OF [facility] LUNG NOT INC ELSEWHERE CLASSIFIED 7242 LUMBAGO 03-06-2013 [facility] INC V571 OTHER 03-06-2013 [facility] THERAPY INC 13571 OTHER 03-01-2013 [place] [facility] CONDITIONS [facility] OF BRAIN FOUNDATIO 7140 RHEUMATOID 03-01-2013 [place] [facility] ARTHRITIS SERV [facility] 7840 HEADACHE 03-01-2013 [facility] 83454 DIARRHEA 03-01-2013 [facility] 7930 NONSPECIFIC 03-01-2013 [place] [facility] ABN FNDNG SERV RAD & OTH FOUNDATIO EXM SKULL & HEAD E8889 UNSPECIFIED 03-01-2013 [place] [facility] FALL [facility] 57632 OTHER 02-28-2013 [place] [facility] CHRONIC [facility] PAIN F[facility] 4019 UNSPECIFIED 02-28-2013 [place] [facility] ESSENTIAL SERV HYPERTENSIO FOUNDATIO N 15242 FEVER 02-28-2013 [place] [facility] UNSPECIFIED SERV [facility] 72448 OTHER 02-28-2013 [place] [facility] NONSPECIFIC SERV ABNORMAL [facility]AT[facility] FINDING OF LUNG FIELD 412 OLD 02-27-2013 [facility] IN[facility] 56960 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 4829 UNSPECIFIED 02-27-2013 [facility] PNEUMONIA SERVICE 5184 UNSPECIFIED 02-27-2013 [place] [facility] EDEMA OF FOUNDATIO LUNG 5849 ACUTE 02-27-2013 [facility] FAILURE UNSPECIFIED 56673 RHEUMATOID 02-27-2013 [facility] V4361 SHOULDER 02-27-2013 [place] [facility] REPLACEMENT FOUNDAT[facility] BY OTHER MEANS V462 DEPENDENCE 02-27-2013 [facility] FOR SUPPLEMENTA L OXYGEN 69602 OBSTRUCTIVE 02-26-2013 [facility] BRONCHITIS [facility] P WITH EXACERBATIO N V5869 LONG-TERM 02-20-2013 [facility] OF USE OF [place] OTHER MEDICATIONS V6751 F/U EXAM 02-20-2013 [facility] FOLLOW CMPL [place] [facility] W/HIGH-RISK MED NEC 14942 COR 02-12-2013 [facility] UNSPEC TYPE VESSEL KAKTOVIK/RAUL T 4940 BRONCHIECTA 01-31-2013 [place] [facility] S[facility] WITHOUT SERV ACUTE FOUNDATIO EXACERBATIO N 87253 IDIOPATHIC 01-31-2013 [place] [facility] 7856 ENLARGEMENT 01-31-2013 [place] [facility] OF LYMPH SERV NODES FOUNDATIO 99662 SHORTNESS 01-31-2013 [place] [facility] OF BREATH SERV FOUNDATIO 93375 OTHER 01-31-2013 [facility] RESPIRATORY AMBULANCE SERVICE COMPLICATIO NS 0529 VARICELLA 01-06-2013 A Candice PINZON MD PSC MENTION OF COMPLICATIO N 7862 COUGH 01-06-2013 A Candice COLBERT MD PSC 4660 ACUTE 11-06-2012 A Candice COLBERT BRONCHITIS PSC V5812 ENCOUNTER 09-25-2012 [facility]TINEOP[facility] [place] TIC IMMUNOTHERA PY 2859 UNSPECIFIED 08-31-2012 [facility] 4841 PNEUMONIA 08-31-2012 [facility] IN [facility] CYTOMEGALIC FOUNDATIO INCLUSION DISEASE 5168 OTH SPEC 08-31-2012 [place] [facility] ALVEOL&DEONNA SERV ETOALVEOL FOUNDATIO PNEUMONOPAT HIES 48228 NAUSEA WITH 08-02-2012 [place] [facility] VOMITING SERV [facility] V1209 PERSONAL HX 08-02-2012 [place] [facility] O[facility] INFECTIOUS& FOUNDATIO PARASITIC DISEASE 2724 OTHER AND 07-31-2012 [facility] HYPERLIPIDE ALEKSANDAR 5589 OTH&UNSPEC 07-31-2012 [place] [facility] NONINFECTIO SERV US FOUNDATIO GASTROENTER ITIS&COLITI S 85100 VOMITING 07-31-2012 [facility] INTER 91613 ABDOMINAL 07-31-2012 [place] [facility] [place], SERV EPIGASTRIC FOUNDATIO 29706 SYSTEMIC 07-31-2012 [facility] Y RESPONSE SYNDROME UNSPEC V1269 PERSONAL 07-31-2012 [place] [facility] HIST[facility] OTHER FOUNDATIO DISEASES RESPIRATORY SYS 514 PULMONARY 07-03-2012 [facility] [place] CONGESTION RADIOLOGY AND HYPOSTASIS 7295 PAIN IN 07-03-2012 JERRI ESPERANZA SOFT TISSUES OF LIMB 7823 EDEMA 07-03-2012 [facility] ESPERANZA 5119 UNSPECIFIED 07-01-2012 [facility] [place] PLEURAL RADIOLOGY EFFUSION 96309 OTHER 06-20-2012 [place] [facility] DISEASES OF SERV NASAL FOUNDATIO CAVITY AND SINUSES 5121 IATROGENIC 06-16-2012 [place] [facility] PNEUMOTHROA SERV X FOUNDATIO 15139 ACUTE AND 06-16-2012 [place] [facility] CHRONIC [facility] RESPIRATORY FOUNDATIO FAILURE 45667 SEPTIC 06-16-2012 [place] [facility] SHOCK SERV [facility] 0785 CYTOMEGALOV 06-15-2012 [facility] DISEASE THE B 36575 CHEST PAIN 06-15-2012 P[facility] UNSPECIFIED CARE CTR OF THE B 7850 UNSPECIFIED 06-11-2012 [place] [facility] TACHYCARDIA F[facility]AT[facility] 4279 UNSPECIFIED 05-17-2012 [place] [facility] CARDIAC SERV DYSRHYTHMIA FOUNDATIO 35439 ACUTE 05-17-2012 [place] [facility]AT[facility] SERV FAILURE FOUNDATIO 11512 OTHER 04-24-2012 [facility] BR[facility] SEPTICEMIA 1124 CANDIDIASIS 04-24-2012 [facility] 5070 PNEUMONITIS 04-24-2012 [place] DUE TO HOSPITAL INHALATION OF FOOD OR VOMITUS 5100 EMPYEMA 04-24-2012 [facility] 5183 PULMONARY 04-22-2012 [place] [facility] 68930 REFLUX 08-03-2011 [place] ESOPHAGITIS K[place]YAN 74901 OTHER 08-03-2011 [facility] SYMPTOMS [place] INVOLVING DIGESTIVE SYSTEM OTHER 490 BRONCHITIS 07-13-2010 [facility] NOT [place] SPECIFIED ACUTE OR CHRONIC 50233 ASTHMA, 07-13-2010 [facility] UNSPECIFIED [place] , UNSPECIFIED STATUS 22764 PAIN IN 07-08-2010 [place] JOINT, [facility] ANKLE AND FOOT 23084 DISORDER OF 07-08-2010 [place] [facility] BONE AND SERV CARTILAGE FOUNDATIO UNSPECIFIED V454 ARTHRODESIS 07-08-2010 [place] [facility] STATUS [facility] V5489 OTHER 07-08-2010 [facility] V5409 OTH 06-17-2010 [facility] INVOLVING FOUNDATIO INTERNAL FIXATION DEVICE V6700 FOLLOW-UP 06-01-2010 [facility] EXAMINATION SERV FOLLOWING FOUNDATIO UNSPEC SURGERY 18423 PRIMARY 05-12-2010 [place] [facility] LOCALIZED SERV OSTEOARTHRO FOUNDATIO SIS ANKLE AND FOOT 16847 PAIN IN 05-12-2010 [place] [facility], SERV LOWER LEG FOUNDATIO V0481 NEED 05-12-2010 [facility] C VACCINATION &INOCULATIO N FLU V5849 OTHER 05-12-2010 [place] [facility] SPECIFIED SERV AFTERCARE FOUNDATIO FOLLOWING SURGERY 4659 ACUTE URIS 04-17-2010 [facility] OF [place] UNSPECIFIED SITE 50175 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 [place] [facility] RHEUMATISM SERV ANKLE AND FOUNDATIO FOOT 68439 PAIN IN 04-02-2010 [facility] JOINT, AMERIC UPPER ARM HOLDING 26430 OBST 03-12-2010 [facility] P W/ACUTE BRONCHITIS 33251 PAINFUL 03-12-2010 [place] [facility]Y SERVICES 36588 UNSPECIFIED 05-20-2009 GER[facility] BANERJEE ARTHROPATHY SITE UNSPECIFIED 4011 ESSENTIAL 05-09-2009 [facility] HYPERTENSIO FAMILY PHYS N, BENIGN PSC 96178 OTHER CHEST 05-09-2009 [place] PAIN GEREMIAS V7651 SPECIAL 05-09-2009 [facility] BANERJEE FOR MALIGNANT NEOPLASMS COLON 7808 GENERALIZED 05-05-2009 GEREMI[facility] BANERJEE HYPERHIDROS IS 5960 BLADDER 03-18-2009 [facility] [place] INC OBSTRUCTION 2720 PURE 03-17-2009 [place] HYPERCHOLES GEREMIAS TEROLEMIA 76731 ESOPHAGEAL 03-17-2009 [place] REFLUX GEREMIAS 05481 PRIMARY 03-17-2009 [place] LOCALIZED GEREMIAS OSTEOARTHRO SIS OTH SPEC SITES 82848 OTH [facility] 11-26-2008 [facility] INT ORTHOPEDIC DEVC IMPL&GFT 21759 OT COMPS 11-26-2008 [place] [facility] DUE OTH SERV INTRL FOUNDATIO ORTHOPED DEVICE IMPL&GFT 7271 BUNION 11-11-2008 [facility] 10732 NONSPECIFIC 11-11-2008 [facility] ELECTROCARD IOGRAM V4589 OTHER 11-11-2008 [facility] L STATUS OTHER 66145 EFFUSION OF 09-19-2008 [facility] LOWER LEG H JOINT ORTHOPAEDIC SURGEONS PSC 04504 VILLONODULA 09-19-2008 [facility] R H SYNOVITIS, ORTHOPAEDIC LOWER LEG SURGEONS PSC 5185 PULMONARY 05-16-2008 [place] INSUFFICIEN EMERGENCY CY FOLLOW SERVICES [facility] SURGERY 90768 UNSPECIFIED 05-15-2008 [place] [facility] [place] [address] EXTRINSIC 11-02-2007 [facility] DOSE ASTHMA, PHARMACY UNSPECIFIED 48895 OSTEOARTHRO 07-13-2007 MAKSIM II, SIS UNSPEC NESHA A WHETHER GEN/LOC ANK&FOOT 53008 TENOSYNOVIT 07-13-2007 MAKSIM II, IS OF FOOT [...] SerPl-mCnc (09-22-2016 14:15) NT-proB [phone] complet ENGRAVER HAND SOFT METALS 017 pg/mL ed SerPl-m 14:15 Cnc Lactate [...] HOME HOME O2 SYS MEDICAL MEDICAL RENT; [facility] HUMIDFR&M ASK O2 CONC 1 E1390 [place] VI[place] 4 HOME HOME 85%/>02 MEDICAL MEDICAL CONC AT [facility] FL[facility] PUL[facility] 41672 UNIVERS UNIVERS STRESS 3 Y Y TESTING [facility] SIMPLE SPMTRY 98508 UNIVERS UNIVERS W/VC 3 Y Y EXPIRAGOOD [facility] Y RACHEL W/WO MXML VOL VNTJ PRTBLE E0431 AYLIN AYLIN GASEOUS 3 HOME HOME O2 SYS MEDICAL MEDICAL RENT; EQUIPMD EQUIPMD FLWMTR HUMIDFR&M ASK O2 CONC 1 E1390 [place] 3 HOME HOME 85%/>02 MEDICAL MEDICAL CONC AT [facility]QU[facility]ME [facility] FLW RATE NEBULIZER E0570 A[facility] VIERA WITH 3 HOME HOME COMPRESSO MEDICAL MEDICAL R EQUIPME EQUIPME THERAPEUT 20756 [place] 1/> 3 [facility]OS[facility] AREAS INC INC EACH 15 MIN EXERCISES E-STIM G0283 [place] [facility] 1/> AREAS 3 [facility] HOSP OTH THAN INC INC WND CARE PART TX PLAN E-STIM G0283 [place] [facility] 1/> AREAS 3 MEM HOS[facility] MEM HOSP OTH THAN INC INC WND CARE PART TX PLAN THERAPEUT 46190 [place] IC PX 1/> 3 MEM HOS[facility]OS[facility] AREAS INC INC EACH 15 MIN EXERCISES APPLICATI 98767 [place] ON 3 [facility] MODALITY INC INC 1/> AREAS HOT/COLD PACKS CONTINUOU E0601 A[facility]LIN VIERA S 3 HOME HOME POSITIVE MEDICAL MEDICAL AIRWAY EQUIPME EQUIPME PRESSURE DEVICE THERAPEUT 46861 [place] IC PX 1/> 3 MEM HOS[facility] MEM HOSP AREAS INC INC EACH 15 MIN EXERCISES E-STIM G0283 [place] [facility] 1/> AREAS 3 MEM HOS[facility] MEM HOSP OTH THAN INC INC WND CARE PART TX PLAN SMR PRIM 34864 [place] SRC 3 [facility] GRAM/GIEM INC INC SA STAIN BCT FUNGI/LEONIDES L SPUTUM 54196 [place] [facility] OBTAINING 3 [facility] SPEC INC INC AEROSOL INDUCED TX SPX CUL BACT 35782 [place] XCPT 3 MEM HOS[facility] MEM HOSP URINE INC INC BLOOD/STO OL AEROBIC ISOL THERAPEUT 12829 [place] IC PX 1/> 3 MEM HOS[facility] MEM HOS[facility] AREAS INC INC EACH 15 MIN EXERCISES E-STIM G0283 [place] 1/> AREAS 3 [facility]OS[facility] OTH THAN [place] [address] [facility] HEAD/BRAI 3 MEDICAL N W/O SERV CONTRAST FOUNDATIO MATERIAL SBSQ 68317 [facility] 3 MEDICAL PRE CARE/DAY SERV 25 FOUNDATIO MINUTES RADIOLOGI 04472 [facility] K[facility] C EXAM 3 MEDICAL CHEST 2 SERV VIEWS FOUNDATIO FRONTAL&L ATERAL RADIOLOGI 81407 [place] KAM[facility] C EXAM 3 MEDICAL CHEST 2 SERV VIEWS FOUNDATIO FRONTAL&L ATERAL SBSQ 77711 [facility] 3 MEDICAL PRE CARE/DAY SERV 25 [place] [address] [place] [facility] INFUSION 3 [facility] THERAPY INC [place] [address] [place] [facility] INFUSION 3 [facility] THERAPY/P INC INC ROPHYLAXI S /DX 1ST TO 1 HR GROUND A0425 [facility] MILEAGE 3 AMBULANCE AMBULANCE [place] [address] [place] INFUSION 3 [facility] THER INC INC PROPH ADDL SEQUENTIA L TO 1 HR AMB A0427 [facility] SERVICE 3 AMBULANCE AMBULANCE ALS SERVICE SERVICE EMERGENCY TRANSPORT LEVEL 1 INITIAL 39793 [facility] 3 MEDICAL PRE CARE/DAY SERV 70 FOUNDATIO MINUTES RADIOLOGI 24493 [place] AYOOB AND C 3 MEDICAL EXAMINATI SERV ON CHEST FOUNDATIO [place] FRONTAL CUL BACT 47291 [place] XCPT 3 [facility]OS[facility]OS[facility] URINE INC INC BLOOD/STO OL AEROBIC ISOL CUL BACT 29472 [place] AEROBIC 3 [facility] ADDL INC INC METHS DEFINITIV E EA ISOL SUSCEPTIB 67797 [place] LTY STDY 3 [facility] H[facility]OS[facility] ANTIMICRB INC INC IAL MICRO/AGA R DILUTJ SMR PRIM 26338 [place] SRC 3 [facility] GRAM/GIEM INC INC SA STAIN BCT FUNGI/LEONIDES L IAADI 68043 [place] INFLUENZA 3 [facility] B VIRUS INC INC IAADI 09770 [place] INFFLUENZ 3 [facility] A A VIRUS INC INC E-STIM G0283 [place] [facility] 1/> AREAS 3 MEM HOS[facility] HOS[facility] OTH THAN INC INC WND CARE PART TX PLAN CULTURE 21680 [place] STEVENSON BACTERIAL 3 [facility] BLOOD INC INC AEROBIC W/[place] [address] [place] TROPONIN 3 [facility]OS[facility] QUANTITAT INC INC COURTNEY BLOOD 38331 [place] COUNT 3 [facility] COMPLETE INC INC AUTO&AUTO DIFRNTL WBC RADIOLOGI 76651 [place] C 3 [facility] EXAMINATI INC INC ON CHEST [place] FRONTAL ECG 58417 [place] [facility]ECERRIL ROUTINE [address] [facility] W/LEAST P 12 LDS I&R ONLY ECG 67376 [place]IR[place] ROUTINE 3 [facility] ECG INC INC W/LEAST 12 LDS TRCG ONLY W/O I&R THERAPEUT 42417 [place]IR[place] IC PX 1/> 3 [facility] AREAS INC INC EACH 15 MIN EXERCISES PHYSICAL 26784 [place] THERAPY 3 [facility] EVALUATIO INC INC N CREATINE 96146 V[place] KINASE 3 [facility] TOTAL INC INC CRITICAL 56159 [place] CARE 3 [facility] ILL/INJUR INC INC ED PATIENT INIT 30-74 MIN CREATINE 65621 [place] KINASE MB 3 [facility] FRACTION INC INC ONLY BLOOD 93657 [place] GASES ANY 3 [facility] INC INC COMBINATI ON PH PCO2 PO2 CO2 HCO3 BASIC 09650 [place] METABOLIC 3 [facility] PANEL INC INC CALCIUM TOTAL COMPREHEN 19094 [facility] SIVE 3 [facility] METABOLIC HOLDINGS HOLDINGS PANEL COLLECTIO 32507 [facility] N VENOUS 3 [facility] BLO[facility] HOLDINGS VENIPUNCT URE BLOOD 86564 [facility] COUNT 3 [facility] COMPLETE HOLDINGS HOLDINGS AUTOMATED C-REACTIV 53594 [facility] E PROTEIN 3 [facility] HOLDINGS PRTBLE E0431 AYLIN VIERA GASEOUS 3 HOME HOME O2 SYS MEDICAL MEDICAL RENT; [facility] ASK O2 CONC 1 E1390 AYLIN VIER[place] 3 HOME HOME 85%/>02 MEDICAL MEDICAL CONC AT EQUIPME EQUIPME PRSC FLW RATE NEBULIZER E0570 AYLIN VIERA WITH 3 HOME HOME COMPRESSO MEDICAL MEDICAL R EQUIPME EQUIPME PULMONARY 48669 [place] CRUMP STRESS 3 MEDICAL TESTING SERV SIMPLE FOUNDATIO GASES 71525 [facility] BLOOD PH 3 Y [facility] [place] [address] [place] DIFFUSING 3 MEDICAL CAPACITY SERV FOUNDATIO PLETHYSMO 78418 [place] TAR[place] GRAPHY 3 MEDICAL MEDICAL LUNG SERV SERV VOLUMES FOUNDATIO FOUNDATIO W/WO AIRWAY RESIST SPMTRY 49304 [place] KET W/VC 3 MEDICAL EXPIRATOR SERV Y RACHEL FOUNDATIO W/WO MXML VOL VNTJ CT THORAX 59498 [facility] W/O 3 Y Y CONTRAST HOSPITAL HOSPITAL MATERIAL ARTERIAL 05413 [facility] PUNCTURE 3 Y Y WITHDRAWA [facility] L BLOOD DX CONTINUOU E0601 AYLIN VIERA S 3 HOME HOME POSITIVE MEDICAL MEDICAL AIRWAY EQUIPME EQUIPME PRESSURE DEVICE HOSPITAL 85530 [place] SE[facility] DISCHARGE 3 MEDICAL AJU HAZEL DAY SERV MANAGEMEN FOUNDATIO T 30 MIN/< THER 17482 [place] [facility] PROPH/DX 3 [facility] NJX IV INC INC PUSH SINGLE/1S T SBST/DRUG PRESSURIZ 95099 [place] ED/NONPRE 3 [facility]OS[facility] SSURIZED INC INC INHALATIO N TREATMENT GROUND A0425 [facility] MILEAGE 3 AMBULANCE AMBULANCE PER SERVICE SERVICE STATUTE MILE AMBULANCE A0429 [facility] SERVICE 3 AMBULANCE AMBULANCE BLS SERVICE SERVICE EMERGENCY TRANSPORT COMPREHEN 79669 [place] SIVE 3 [facility]OS[facility] METABOLIC INC INC PANEL RADIOLOGI 99843 [place] Harvey 3 [facility]OS[facility] EXAMINATI INC INC ON CHEST [place] FRONTAL RADIOLOGI 77929 [facility] EXAM 3 MEDICAL CHEST 2 SERV VIEWS FOUNDATIO FRONTAL&L ATERAL ECG 89179 [place] ORDOÑEZ JR ROUTINE 3 [facility] W/LEAST P 12 LDS I&[place] [address] [facility] ANGIOGRAP 3 MEDICAL HY CHEST SERV W/CONTRAS FOUNDATIO T/NONCONT RAST ECG 94365 [place] [facility] ROUTINE 3 [facility] ECG INC INC W/LEAST 12 LDS TRCG ONLY W/O I&R BLOOD 70509 [place] [facility] COUNT 3 [facility] COMPLETE INC INC AUTO&AUTO DIFRNTL WBC CULTURE 93853 [place] BACTERIAL 3 [facility] BLOOD INC INC AEROBIC W/ID ISOLATES SMR PRIM 04281 [place] SRC 3 [facility] GRAM/GIEM INC INC SA STAIN BCT FUNGI/LEONIDES L CUL BACT 23965 [place] [facility] XCPT 3 [facility] URINE INC INC BLOOD/STO OL AEROBIC ISOL CUL BACT 42494 [place] [facility] AEROBIC 3 [facility] ADDL INC INC METHS DEFINITIV E EA ISOL SUSCEPTIB 29066 [place] LTY STDY 3 [facility] ANTIMICRB INC INC IAL MICRO/AGA R DILUTJ ALBUTEROL J7620 YOUR YOUR TO 2.5 3 PHARMACY PHARMACY MG & S[facility]ati IPRATROPI UM BROM TO 0.5 MG PHRM Q0513 YOUR YOUR DISPENSIN 3 PHARMACY PHARMACY G FEE [facility] INHALATIO N RX; PER 30 DAYS ADMN SET A7003 YOUR YOUR SM VOL 3 PHARMACY PHARMACY NONFILTR [facility] PNEUMAT NEBULIZR DISPBL NEBULIZER E0570 AYLIN VIERA WITH 3 HOME HOME COMPRESSO MEDICAL MEDICAL R EQUIPME EQUIPME O2 CONC 1 E1390 [place] VI[place] 3 HOME HOME 85%/>02 MEDICAL MEDICAL CONC AT EQUIPME EQUIPME PRSC FLW RATE PRTBLE E0431 AYLIN VIERA GASEOUS 3 HOME HOME O2 SYS MEDICAL MEDICAL RENT; EQUIPME EQUIPME FLWMTR HUMIDFR&M ASK RADIOLOGI 64708 [place] [facility] C EXAM 3 [facility] CHEST 2 INC INC VIEWS FRONTAL&L ATERAL CONTINUOU E0601 AYLIN VIERA S 3 HOME HOME POSITIVE MEDICAL MEDICAL AIRWAY EQUIPME EQUIPME PRESSURE DEVICE CREATINE 42932 [place] KINASE 3 [facility] TOTAL INC INC 3D 14726 [place] [facility] RENDERING 3 [facility] W/INTERP INC INC & [place] [address] [place] [facility] HEAD/BRAI 3 [facility] N W/O INC INC CONTRAST MATERIAL COMPREHEN 10219 [place] SIVE 3 [facility] METABOLIC INC INC PANEL CREATINE 32852 [place] KINASE MB 3 [facility] FRACTION INC INC ONLY RHYTHM 68730 [place] ECG 1-3 3 [facility] LEADS INC INC TRACING ONLY W/O I&R ECG 18324 [place] ORDOÑEZ JR ROUTINE [address] [facility] W/LEAST P 12 LDS I&R ONLY ECG 76635 [place] ROUTINE 3 [facility] ECG INC INC W/LEAST 12 LDS TRCG ONLY W/O I&R BLOOD 16742 [place] COLEMAN COUNT 3 [facility] COMPLETE INC INC AUTO&[place] [address] [place] TROPONIN 3 [facility] QUANTITAT INC INC COURTNEY PRTBLE E0431 [...] AIRWAY EQUIPME EQUIPME PRESSURE DEVICE NEBULIZER E0570 AYLIN VIERA WITH 3 HOME HOME COMPRESSO MEDICAL MEDICAL R EQUIPME EQUIPME O2 CONC 1 E1390 AYLIN VIEAR DEL PORT 3 HOME HOME 85%/>02 MEDICAL [...] PER SESS TO 2 PER DAY BLOOD 64008 [facility] COUNT 3 [facility] [employer] [employer] AUTOMATED COLLECTIO 73585 [facility] N VENOUS 3 [facility] BLOOD [employer] VENIPUNCT URE COMPREHEN 67151 [facility] SIVE 3 [facility] [employer] METABOLIC [employer] PANEL C-REACTIV 19800 [facility] E PROTEIN 3 [...] HUMIDFR&M ASK O2 CONC 1 E1390 AYLIN VIREA DEL [place] 3 HOME HOME 85%/>02 MEDICAL MEDICAL CONC AT EQUIPME EQUIPME PRSC FLW RATE NEBULIZER E0570 AYLIN VIERA WITH 3 HOME HOME COMPRESSO MEDICAL MEDICAL R EQUIPME EQUIPME PULM G0424 [place] [facility] REHAB 3 [facility] INCL EXER INC INC 1 HR PER SESS TO 2 PER DAY POLYSOM 98942 [place] 6/>YRS 3 [facility] MEM [...] HOME R MEDICAL MEDICAL EQUIPME EQUIPME BRNCDILAT 48269 [place] RSPSE 3 [facility] SPMTRY INC INC PRE&POST- BRNCDILAT ADMN PRTBLE E0431 AYLIN VIERA GASEOUS 3 HOME HOME O2 SYS MEDICAL MEDICAL RENT; EQUIPME EQUIPME FLWMTR HUMIDFR&M ASK GAS 77087 [place] DILUT/WAS 3 [facility] HOUT LUNG INC INC VOL W/WO DISTRIB VENT&V NEBULIZER E0570 AYLIN VIERA WITH 3 HOME HOME COMPRESSO MEDICAL MEDICAL R EQUIPME EQUIPME O2 CONC 1 E1390 AYLIN VIERA DEL PORT 3 HOME HOME 85%/>02 MEDICAL MEDICAL CONC AT EQUIPME EQUIPME PRSC FLW RATE CYANOCOBA 60585 [facility] CLARISSE 3 Y Y VITAMIN [facility] [place] [place] [address] [facility] FOLIC 3 Y Y ACID RBC [facility] COMPREHEN 48106 [facility] SIVE 3 Y Y METABOLIC [facility] PANEL [facility]ON 60527 [facility] BINDING 3 Y Y CAPACITY [facility] PREALBUMI 28579 [facility] N 3 Y Y [facility] BLOOD 71187 [facility] COUNT 3 Y Y COMPLETE [facility] [facility] AUTO&AUTO DIFRNTL WBC RHEUMATOI 87229 [facility] UNIVERS D FACTOR 3 Y Y QUANTITAT [facility] COURTNEY ANTINUCLE 44999 [facility] LAB HEIDI AR 3 Y AMERIC ANTIBODIE [facility] HOLDING S WILBUR FLUORESCE 04454 [facility] NT 3 Y Y NONNFCT [facility] AGT ANTB SCREEN EA ANTIBODY COLLECTIO 05368 [facility] UNIVERS N VENOUS 3 Y Y BLOOD [facility] VENIPUNCT URE RADIOLOGI 66249 [place] ISA SARAH C EXAM 3 MEDICAL [...] COMPRESSO MEDICAL MEDICAL R EQUIPME EQUIPME POLYSOM 82712 [place] COLE[place] 6/>YRS 3 [facility] SLEEP INC INC W/CPAP 4/> ADDL [facility] 38286 [facility] 3 MEDICAL JAG DAY SERV MANAGEMEN FOUNDATIO T 30 MIN/< SBSQ 74280 [facility] 3 MEDICAL JAG CARE/DAY SERV 25 FOUNDATIO MINUTES RADEX ABD 56114 [place] DISANTIS COMPL 3 MEDICAL SIDDHARTHA AQT ABD SERV W/S/E/D FOUNDATIO VIEWS 1 VIEW CH RADEX ABD 15448 [place] JESICA JAM COMPL 3 MEDICAL AQT ABD SERV W/S/E/D [place] [address] [place] [address] [place] SOHEILA ABDOMINAL 3 MEDICAL DEENA REAL SERV TIME FOUNDATIO W/IMAGE LIMITED INITIAL 15746 [facility] 3 Y OF MARION CARE/DAY [...] MEDICAL ADJUSTABL EQUIPME EQUIPME E/FIXED HEIGHT DUP-SCAN 89223 JERRI JERRI XTR VEINS 3 ESPERANZA ESPERANZA COMPLETE BILATERAL STUDY RADIOLOGI 95026 [facility] [place] KOSTELIC C EXAM 3 RADIOLOGY MONTSERRAT CHEST 2 VIEWS FRONTAL&L ATERAL RADIOLOGI 98223 [facility] [place] NOEL C EXAM 3 RADIOLOGY GODFREY CHEST 2 VIEWS FRONTAL&L ATERAL MRI BRAIN 04595 TARAS LUKINS BRAIN 3 MEDICAL TIERRA STEM W/O SERV CONTRAST FOUNDATIO MATERIAL SBSQ 05505 [facility] 3 E CARE CARE/DAY CTR OF 15 THE B MINUTES [facility] 52054 TARAS HARLEY INCL 3 MEDICAL OSCAR FLUOR SERV GDNCE DX FOUNDATIO W/CELL WASHG SPX SBSQ 29209 [facility] 3 E CARE CARE/DAY CTR OF 25 THE B MINUTES CLOSED 3324 [facility] BIOPSY OF 3 Y Y BRONCHUS [facility] VENOUS 3893 [facility] CATHETER 3 Y Y ZATION [facility] NOT ELSEWHERE CLASSIFIE D ECG 36996 [facility] CHI ROUTINE 3 MEDICAL ECG SERV W/LEAST FOUNDATIO 12 LDS I&R ONLY ECG 62894 TARAS HU ROUTINE 3 MEDICAL NAN ECG SERV W/LEAST FOUNDATIO 12 LDS I&R ONLY CONTINUOU E0601 AYLIN VIERA S 2 HOME HOME POSITIVE MEDICAL MEDICAL AIRWAY EQUIPME EQUIPME PRESSURE DEVICE THORACOSC 3320 [facility] LUNG 2 Y Y BIOPSY [facility] STANDARD K0001 AYLIN YOUNGCHAI 2 HOME HOME R MEDICAL MEDICAL EQUIPME EQUIPME ECG 68235 TARAS ROQUE CHI ROUTINE 2 MEDICAL ECG SERV W/LEAST FOUNDATIO 12 LDS I&R ONLY ECG 60096 TARAS ROSA CHET ROUTINE 2 MEDICAL ECG SERV W/LEAST FOUNDATIO 12 LDS I&R ONLY ECG 32222 TARAS ROQUE CHI ROUTINE 2 MEDICAL ECG SERV W/LEAST FOUNDATIO 12 LDS I&R ONLY ECG 03891 TARAS HU ROUTINE 2 MEDICAL NAN ECG SERV W/LEAST FOUNDATIO 12 LDS I&R ONLY CONT 9671 [facility] 2 Y Y [facility] < 96 CONSECUTI VE HOURS INSERTION 9604 [facility] 2 Y Y [facility] EAL TUBE RADIOLOGI 39341 [place] DAWNA 2 MEDICAL TIERRA EXAMINATI IMAGING ON CHEST ASS SINGLE VIEW FRONTAL RADIOLOGI 78788 [place] DAWNA C 2 MEDICAL TIERRA EXAMINATI IMAGING ON CHEST ASS SINGLE VIEW FRONTAL ADMN SET A7003 YOUR YOUR SM VOL 2 PHARMACY PHARMACY NONFILTR Sokrati PNEUMAT NEBULIZR DISPBL ALBUTEROL J7620 YOUR YOUR TO 2.5 2 PHARMACY PHARMACY [employer] IPRATROPI UM BROM TO 0.5 MG PHARM G0333 YOUR YOUR DISPEN 2 PHARMACY PHARMACY FEE INHAL Sokrati RX; INITIAL 30-DAY SUPPLY ECG 32850 POPPY KEENE ROUTINE 2 EMERGENCY VENUS ECG SERVICES W/LEAST 12 LDS I&R ONLY RADIOLOGI 42323 [facility] EXAM 2 MEDICAL TIERRA CHEST 2 IMAGING VIEWS ASS FRONTAL&L [facility] PRIM 76121 [facility] SRC CPLX 2 N N SPEC [facility] STAIN HOSPITA HOSPITA OVA&CHAD ITS OVA&CHAD 98702 [facility] ITES 2 N N DIRECT COMMUNITY COMMUNITY SMEARS HOSPITA HOSPITA CONCENTRA TION & ID SMR PRIM 34544 [facility] SRC 2 N N GRAM/GIEM [facility] SA STAIN HOSPITA HOSPITA BCT FUNGI/LEONIDES L BLOOD 01151 [facility] OCCULT 2 N N PEROXIDAS [facility] E ACTV HOSPITA HOSPITA QUAL FECES 1-3 SPEC BLOOD 34567 CULBERTSO CULBERTSO OCCULT 2 N KALYAN N KALYAN PEROXIDAS E ACTV QUAL FECES 1 DETER COMPREHEN 22712 LAB HEIDI LAB HEIDI SIVE 2 AMERIC AMERIC METABOLIC HOLDING HOLDING PANEL BLOOD 72993 LAB HEIDI LAB HEIDI COUNT 2 AMERIC AMERIC COMPLETE HOLDING HOLDING AUTOMATED COLLECTIO 65519 LAB HEIDI LAB HEIDI N VENOUS 2 AMERIC AMERIC BLOOD HOLDING HOLDING VENIPUNCT URE C-REACTIV 84394 LAB HEIDI LAB HEIDI E PROTEIN 2 AMERIC AMERIC HOLDING HOLDING C-REACTIV 28882 LAB HEIDI LAB HEIDI E PROTEIN 1 AMERIC AMERIC HOLDING HOLDING COLLECTIO 31577 LAB HEIDI LAB HEIDI N VENOUS 1 AMERIC AMERIC BLOOD HOLDING HOLDING VENIPUNCT URE BLOOD 58455 LAB HEIDI LAB HEIDI COUNT 1 AMERIC AMERIC COMPLETE HOLDING HOLDING AUTOMATED COMPREHEN 10640 LAB HEIDI LAB HEIDI SIVE 1 AMERIC AMERIC METABOLIC HOLDING HOLDING PANEL WALKING L4360 [employer], [email or web address], [email or web address] BOOT 1 PNEUMATC &/ VACUUM PREFAB CUSTM FIT RADEX 40462 [place] KAPOOR JAM ANKLE 1 MEDICAL COMPLETE SERV MINIMUM 3 FOUNDATIO VIEWS COLLECTIO 12274 [facility] N VENOUS 1 [place] [facility] [place] INC BLOOD VENIPUNCT URE LIPID 47464 [facility] PANEL 1 [place] [facility] [place] [facility] TRANSFERA 94140 [facility] SE 1 [place] [facility] GetIntent INC ASPARTATE AMINO AST SGOT CAST Q4038 [place] JUAN SUPPLIES 1 MEDICAL KAMALA SHORT LEG SERV CAST FOUNDATIO ADULT FIBERGLAS S RADIOLOGI 73711 [place] HUMMEL C 1 MEDICAL GODFREY EXAMINATI SERV ON FOOT 2 FOUNDATIO VIEWS APPLICATI 68612 [place] ON SHORT 1 MEDICAL MEDICAL LEG CAST SERV SERV WALKING/A FOUNDATIO FOUNDATIO MBULATORY CAST Q4038 [place] JUAN SUPPLIES 1 MEDICAL KAMALA SHORT LEG SERV CAST FOUNDATIO ADULT FIBERGLAS S APPLICATI 05268 [place] SHORT 1 MEDICAL MEDICAL LEG CAST SERV SERV BELOW FOUNDATIO FOUNDATIO KNEE-TOE [facility] G0378 [facility] OBSERVATI 0 Y Y ON HOSPITAL HOSPITAL SERVICE PER HOUR PHYSICAL 97168 [facility] THERAPY 0 Y [place] [address] TARAS BURKETTROEBRTOKAVEH GUIDANCE 0 MEDICAL JUS NEEDLE SERV PLACEMENT FOUNDATIO IMG S&I ANESTHESI 83308 TARAS JUDITHDAMIANKAVEH A ON BONY 0 MEDICAL JUS PELVIS SERV FOUNDATIO BONE [facility] GRAFT ANY 0 Y Y DONOR HOSPITAL HOSPITAL AREA MAJOR/LAR GE FLUOROSCO 59852 [facility] PY SPX >1 0 Y Y [facility] HOSPITAL PHYS/QHP TIME INJECTION 88468 TARAS [facility] 0 MEDICAL JUS ANESTHETI SERV C AGENT FOUNDATIO SCIATIC NRV SINGLE INJECTION 55207 TARAS [facility] 0 MEDICAL JUS ANESTHETI SERV C AGENT FOUNDATIO FEMORAL NERVE SINGLE ARTHRODES 05232 [facility] IS 0 Y Y SUBTALAR [facility] CULTURE 48340 LAB HEIDI LAB HEIDI BACTERIAL 0 AMERIC AMERIC ANY HOLDING HOLDING SOURCE ANAEROBIC ISO&ID CUL BACT 56143 LAB HEIDI LAB HEIDI XCPT 0 AMERIC AMERIC URINE HOLDING HOLDING BLOOD/STO OL AEROBIC ISOL SMR PRIM 12272 LAB HEIDI LAB HEIDI SRC 0 AMERIC AMERIC GRAM/GIEM HOLDING HOLDING SA STAIN BCT FUNGI/LEONIDES L BLOOD 83133 [place] [facility] COUNT 0 [facility] COMPLETE INC INC AUTO&[place] [address] [place] TROPONIN 0 [facility] QUANTITAT INC INC COURTNEY ECG 13920 [place] MARTINEZKEMIE ROUTINE 0 JOE DIMAGGIO [facility] W/LEAST P 12 LDS I&R ONLY ECG 60742 [place] ROUTINE 0 [facility] ECG INC INC W/LEAST 12 LDS TRCG ONLY W/O I&R CREATINE 83002 [place] KINASE MB 0 [facility] FRACTION INC INC ONLY BASIC 99570 [place] METABOLIC 0 [facility] PANEL INC INC CALCIUM TOTAL PRESSURIZ 02803 [place] ED/NONPRE 0 [facility] SSURIZED INC INC INHALATIO N TREATMENT RADIOLOGI 45987 [place] C 0 [facility] HOS[facility] EXAMINATI INC INC ON CHEST SINGLE VIEW FRONTAL THER 74003 [place] PROPH/DX 0 [facility] HOS[facility] NJX IV INC INC PUSH SINGLE/1S T SBST/DRUG CREATINE 58197 [place] KINASE 0 [facility] HOS[facility] TOTAL INC INC 3D 40247 [place] RENDERING 0 [facility] INC INC W/INTERP& POSTPROC DIFF WORK STATION DUP-SCAN 61922 [place] XTR VEINS 0 [facility]OS[facility] INC INC UNILATERA L/LIMITED STUDY CT LOWER [address]30 [place] EXTREMITY 0 [facility] W/O INC INC CONTRAST MATERIAL INJECTION J1040 MONICA REYNOLDSBERTSO 9 N, GEREMIAS DOUGHERTY DNISOLONE ACETATE 80 MG CV STRS 29645 MONICA ANDERSON TST 9 N, GEREMIAS DOUGHERTY&/OR RX CONT ECG W/O I&R CV STRS 82832 [facility] TST 9 N N XERS&/OR [facility] RX CONT [facility] ECG TRCG ONLY MYOCRD 85751 [facility] 9 N [facility] PHYS PSC MOTION QUAL/RENEE STD TECHNETIU A9500 [facility] TC-99M 9 N N SESTAMIBI [facility] DX PER [facility] STUDY DOSE MYOCRD 45162 [facility] 9 N N EJEC FXJ [facility] BLOOD 97115 MONICA MOSLEYO OCCULT 9 N, GEREMIAS DOUGHERTY PEROXIDAS E ACTV QUAL FECES 1 DETER MYOCRD 28157 [facility] 9 N N TOMOG [facility] 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 [facility] STD CV STRS 74067 [facility]ERSON TST 9 N, GEREMIAS DOUGHERTY&/OR RX CONT ECG I&[place] [address] [facility] IRON 9 [facility] IRON 91188 [facility] BINDING 9 [facility] CAPACITY COLLECTIO 28733 [facility] N VENOUS 9 [facility] BLOOD VENIPUNCT URE COLLECTIO 49671 [facility] N VENOUS 9 [facility] BLOOD VENIPUNCT URE BLOOD 24684 [facility] COUNT 9 [facility] COMPLETE AUTO&AUTO DIFRNTL WBC INFLUENZA G9141 CULBERTSO CULBERTSO A H1N1 9 N, GEREMIAS N, GEREMIAS IMMUNIZAT ION ADMINISTR ATION PWR E2365 ALLIED ALLIED WHLCHAIR 9 HOME HOME ACSS U-1 MEDICAL, MEDICAL, SEALED INC. INC. LEAD ACID BATTRY EA REPR/SRVC K0739 ALLIED ALLIED DME NOT 9 HOME HOME O2 RQR MEDICAL, MEDICAL, TECH INC. INC. CMPNT PER 15 MINS SMR PRIM 29688 LAB HEIDI LAB HEIDI SRC 9 AMERIC AMERIC GRAM/GIEM HOLDING HOLDING SA STAIN BCT FUNGI/LEONIDES L SUSCEPTIB 29079 LAB [facility] LAB HEIDI LTY STDY 9 AMERIC AMERIC ANTIMICRB HOLDING HOLDING IAL MICRO/AGA R DILUTJ CULTURE 87032 LAB [facility] LAB HEIDI BACTERIAL 9 AMERIC AMERIC ANY HOLDING HOLDING SOURCE ANAEROBIC ISO&ID CUL BACT 36733 LAB [facility]I LAB HEIDI XCPT 9 AMERIC AMERIC URINE HOLDING HOLDING BLOOD/[place] [address] [facility] PROSTATE 9 [facility] SPECIFIC ANTIGEN TOTAL COLLECTIO 68714 [facility] N VENOUS 9 [facility] BLOOD VENIPUNCT URE COMPREHEN 77969 [facility] SIVE 9 [facility] METABOLIC PANEL LIPID 97620 [facility] PANEL 9 [facility] FLUOROSCO 30110 [facility] PY SPX >1 9 Y [facility] PHYS/QHP TIME REMOVAL 38694 [place] JUAN, IMPLANT 9 MEDICAL TONO J DEEP SERV FOUNDATIO INJECTION J2175 [facility] 9 Y Y [facility] E HCL PER 100 MG RINGERS J7120 [facility] LACTATE 9 Y Y [facility] UP TO 1000 CC INJECTION J3010 [facility] FENTANYL 9 Y Y [facility] 0.1 MG CUL BACT 87188 [facility] XCPT 9 Y Y URINE HOSPITAL HOSPITAL BLOOD/STO OL AEROBIC ISOL SMR PRIM 52003 [facility] SRC 9 Y Y GRAM/GIEM HOSPITAL HOSPITAL SA STAIN BCT FUNGI/LEONIDES L INJECTION J2270 [facility] MORPHINE 9 Y Y [facility] UP TO 10 MG INJECTION J0690 [facility] 9 Y Y CEFAZOLIN [facility] SODIUM 500 [place] I [address] TARSA RUIZ, SURG 9 MEDICAL FAUSTINO PATHOLOGY SERV GROSS FOUNDATIO EXAMINATI ON ONLY BLOOD 99848 [facility] COUNT 9 Y Y COMPLETE [facility] AUTOMATED ECG 79687 [facility] ROUTINE 9 Y Y ECG [facility] W/LEAST 12 LDS TRCG ONLY W/O I&R RADEX 13670 [facility] FOOT 9 Y Y COMPLETE [facility] MINIMUM 3 VIEWS COLLECTIO 90995 [facility] N VENOUS 9 Y Y BLOOD [facility] VENIPUNCT URE ECG 01121 TARAS CHASE, ROUTINE 9 MEDICAL MARIXA G ECG SERV W/LEAST FOUNDATIO 12 LDS I&R ONLY BASIC 38838 [facility] METABOLIC 9 Y Y PANEL HOSPITAL HOSPITAL CALCIUM TOTAL ARTHROCEN 08852 [place] MAKSIM TESIS 9 LTH II, NESHA ASPIR&/IN ORTHOPAED A J MAJOR IC JT/BURSA SURGEONS W/O US PSC COLLECTIO 81474 [facility] N VENOUS 9 Y Y BLOOD HOSPITAL [facility] VENIPUNCT URE SMR PRIM 60274 [facility] SRC 9 Y Y GRAM/GIEM HOSPITAL [facility] SA STAIN BCT FUNGI/LEONIDES L CUL BACT 87289 [facility] XCPT 9 Y Y URINE HOSPITAL HOSPITAL BLOOD/STO OL AEROBIC ISOL INJ J0702 [place] MAKSIM BETAMETHA 9 LTH II, NESHA REARDONE ORTHOPAED A ACETATE & IC SURGEONS PHOSPHATE PSC 3 MG CELL 79557 [facility] COUNT 9 Y Y [facility] FLUIDS W/DIFFERE NTIAL COUNT PWR E2365 ALLIED ALLIED WHLCHAIR 9 HOME HOME ACSS U-1 MEDICAL, MEDICAL, SEALED INC. INC. LEAD ACID BATTRY EA REP/NONRO E1340 ALLIED ALLIED UTINE 9 HOME HOME SRVC DME MEDICAL, MEDICAL, RQR SKL INC. INC. TECH LABR-15 MIN SBSQ 29489 [facility] 8 EMERGENCY N, CARE/DAY SERVICES TADARRO 25 MINUTES ASSOCIATE S INITIAL 88361 [facility] INPATIENT 8 EMERGENCY N, CONSULT SERVICES TADARRO NEW/ESTAB PT 110 ASSOCIATE MIN S ANESTH 98731 KRANTHI CARDOZO 8 [facility] REEMA Harvey ANESTHESI ARTHROSCO A PSC PIC PROC KNEE JOINT LEVEL III 42610 [place] ANN, SURG 8 MEDICAL TIM E PATHOLOGY SERV FOUNDATIO GROSS&VENUS ROSCOPIC EXAM COLONOSCO 78661 [facility], PY FLX DX 8 [place] RICHY G W/COLLJ GASTROENT SPEC WHEN PFRMD ANES 42006 [place] HIRO, [facility] 8 ANESTHESI JENNIFER Vieira INTESTINE A GROUP PSC ENDOSCOPY DISTAL DUODENUM CUL BACT 15139 [facility] XCPT 8 Y Y URINE [facility] BLOOD/STO OL AEROBIC ISOL SMR PRIM 55540 [facility] SRC 8 Y Y GRAM/GIEM [facility] SA STAIN BCT FUNGI/LEONIDES L CELL 67309 [facility] COUNT 8 Y Y [facility] FLUIDS W/DIFFERE NTIAL COUNT ALBUTEROL J7620 [...] IPRATROPI UM BROM TO 0.5 MG DUP-SCAN 80963 [facility] LXTR 8 N N ART/ARTL [facility] COMPL BI STUDY ALBUTEROL J7620 PULMO [...] NONFILTR PHARMACY PHARMACY PNEUMAT NEBULIZR DISPBL RADIOLOGI 02219 MAKSIM MAKSIM C EXAM 8 II, NESHA II, NESHA KNEE A A COMPLETE 4/MORE VIEWS RADIOLOGI 92578 MAKSIM MAKSIM C 8 II, NESHA II, NESHA EXAMINATI A A ON KNEE 1/2 VIEWS PHRM Q0513 PULMO PULMO DISPENSIN 8 DOSE DOSE G FEE PHARMACY PHARMACY INHALATIO N RX; PER 30 DAYS ALBUTEROL J7620 PULMO PULMO TO 2.5 8 DOSE DOSE MG & PHARMACY PHARMACY IPRATROPI UM BROM TO 0.5 MG Encounters Encounter Start End Date Code Location Performer Type Date [facility] 3 3 Y [facility] [place] 3 3 [facility] [place] 3 3 [facility] OUTPATIEN [facility] EMERGENCY 43268 TARAS SALAZAR DEPT 3 3 MEDICAL JORGE VISIT SERV HIGH FOUNDATIO SEVERITY& THREAT [facility] [place] [address] 3 Y INPATIENT HOSPITAL Emergency NICOLÁS Keene MD (ER) 3 22:37 3 00:59 [facility] [place] - 3 3 [facility] OUTPATIEN [facility] OFFICE 68318 ARTHRITIS ALBERTO [facility] 3 3 CENTER T VISIT OF 25 [facility] - 3 3 Y [facility] Emergency NICOLÁS Millard MD (ER) 3 15:20 3 17:49 [facility] [place] - 3 3 [facility] OUTPATIEN [facility] EMERGENCY 40171 [place] DEPT 3 3 MEM HOSP VISIT INC HIGH SEVERITY& THREAT [facility] [place] - 3 3 [facility] OUTPATIEN [facility] T OFFICE 93095 Avtar LAZCANO [facility] 3 3 FILEMON IBRAHIM JE T VISIT PSC 15 MINUTES Emergency NICOLÁS Millard MD (ER) 3 14:54 3 16:00 [facility] EMERGENCY 89634 [place] 3 3 [facility] DEPARTMEN [facility] T VISIT HIGH/URGE NT [facility] [place] - 3 3 [facility] OUTPATIEN INC T EMERGENCY 49887 POPPY SANTA DEPT 3 3 EMERGENCY VISIT SERVICES HIGH SEVERITY& THREAT [facility] OFFICE 69144 ARTHRITIS ALBERTO RIT OUTPATIEN 3 3 CENTER T VISIT OF 25 [facility] OFFICE 58962 Avtar [facility]CANO [facility] 3 3 FILEMON SHAH T VISIT PSC [address] [facility] [place] - 3 3 [facility] OUTPATIEN [facility] OFFICE 70332 ARTHRITIS ALBERTO RIT OUTPATIEN 3 3 CENTER T VISIT OF 10 [facility] 3 3 [facility] [place] 3 [facility] OUTPATIEN [facility] OFFICE 46226 ARTHRITIS ALBERTO RIT OUTPATIEN 3 3 CENTER T VISIT OF 25 [facility] [place] - 3 3 [facility] OUTPATIEN [facility] OFFICE 62690 TARAS [facility]PSON [facility] 3 3 MEDICAL JAM T VISIT SERV 40 [facility] [address] [place] - 3 3 [facility] EMERGENCY 37238 TARAS LANTIGUA DEPT 3 3 MEDICAL FIRE PREVENTION SPECIALIST VISIT SERV HIGH FOUNDATIO SEVERITY& THREAT [facility] [place] [facility] [address] Y [facility] OFFICE 86145 TARAS GATES [facility] 3 3 MEDICAL YATACO T VISIT SERV ANG 25 [facility] [address] EMERGENCY 38626 POPPY KEENE DEPT 2 2 EMERGENCY VENUS VISIT SERVICES HIGH SEVERITY& THREAT [facility] EMERGENCY 84373 POPPY SANTA DEPT 2 2 EMERGENCY VISIT SERVICES HIGH SEVERITY& THREAT [facility] - 2 2 N [facility] OFF[facility] 11635 CULBERTSO CULBERTSO OUTPATIEN 2 2 N KALYAN N KALYAN T VISIT 15 MINUTES OFFICE 70498 CULBERTSO CULBERTSO OUTPATIEN 1 1 N KALYAN N KALYAN T VISIT 15 MINUTES HOSPITAL UNIVERSIT - 1 1 Y [facility] UNIVERSIT - 1 1 Y [facility] UNIVERSIT - 0 0 Y [facility] OFFICE 16130 CULBERTSO CULBERTSO OUTPATIEN 0 0 N KALYAN N KALYAN T VISIT 15 MINUTES OFFICE 76957 TARAS BUENOPATIEN 0 0 MEDICAL KAMALA T VISIT SERV [address] [facility] [place] - 0 0 MEM HOSP OUTPATIEN [facility] T EMERGENCY 25375 POPPY MORRISSEY DEPT 0 0 EMERGENCY III TRISTA VISIT SERVICES HIGH SEVERITY& THREAT [facility] EMERGENCY 87685 [place] 0 0 [facility] DEPARTMEN INC T VISIT MODERATE SEVERITY OFFICE [id number] TARAS MARTINEZ OUTPATIEN 0 0 MEDICAL [place] T VISIT SERV 15 FOUNDATIO MINUTES EMERGENCY 68919 [place] 0 0 [facility] DEPARTMEN INC T VISIT LOW/MODER SEVERITY [facility] [place] - 0 0 [facility] OUTPATIEN INC T OFFICE [id number] CULBERTSO CULBERTSO OUTPATIEN 9 9 N, GEREMIAS DOUGHERTY VISIT 15 MINUTES [facility] - 9 9 N [facility] OFFICE 35875 CULBERTSO CULBERTSO OUTPATIEN 9 9 N, GEREMIAS DOUGHERTY VISIT 15 MINUTES OFFICE 27060 CULBERTSO CULBERTSO OUTPATIEN 9 9 GEREMIAS Bautista ROBERT T VISIT 25 MINUTES OFFICE [id number] [facility]ERT[facility]UL[facility]ERT[facility]INT JOSEPH BEREAEN 9 9 GEREMIAS Bautista ROBERT T VISIT 15 MINUTES HOSPITAL [facility] - 9 9 Y [facility] T OFFICE 74097 [place] JUAN, CONSULTMIKE 9 9 MEDICAL TONO J ION SERV NEW/ESTAB FOUNDATIO PATIENT 40 MIN HOSPITAL UNIVERSIT [facility] 9 9 Y [facility] T OFFICE 35487 [facility] 9 9 [facility] NESHA CLEMONS [facility]ISIT ORTHOPAED A 15 IC MINUTES [facility] UNIVERSIT - 9 9 Y [facility] UNIVERSIT - 8 8 Y [facility] T OFFICE 14069 CULBERTSO CULBERTSO OUT[facility]INT JOSEPH BEREAEN 8 8 NGEREMIAS ROBERT T VISIT 15 MINUTES [facility] - 8 8 N [facility] OFF[facility] 83069 MAKSIM SCHAEFFER [facility] 8 8 NESHA CLEMONS II, GLEN T VISIT A A 15 MINUTES
--- OUTSIDE RECORDS SUMMARY | 2016-09-26 10:40 | External Medical Summary Rpt ---
Author Author , Organization [employer] Address Unknown Phone Unavailable Care Team Providers Care Book Retailer Name Role Phone A Candice COLBERT MD PSC, A Unavailable Unavailable Candice COLBERT MD PSC MARTIN PATEL, MARTIN Unavailable Unavailable REEMA ELDER, Unavailable Unavailable REEMA BOOTH [facility] Unavailable Unavailable [facility] Unavailable [place], [facility] [place] [facility] AND, AYOO[facility] AND Unavailable Unavailable BENSADOUN NUVIA, Unavailable Unavailable BENSADOUN NUVIA BESSON KAMALA, BESSON Unavailable Unavailable KAMALA SOHEILA DEENA, Unavailable Unavailable SOHEILA DEENA [facility] Unavailable Unavailable SERVICE, [facility] Unavailable Unavailable SERVICE, [facility] CAMILLE KET, CAMILLE KET Unavailable Unavailable [facility], GRZEGORZ Unavailable Unavailable FAMILY DAY CARER TITI JAG, TITI Unavailable Unavailable JAG [facility], Unavailable Unavailable [facility] [place] [...] NAN JESSICA VENUS, JESSICA Unavailable Unavailable [facility] Unavailable Unavailable HOSPITA, [facility] Unavailable Unavailable [facility], [facility], [facility] Unavailable [facility]available [facility] Unavailable Unavailable INC, [facility] Unavailable Unavailable HOSPITAL P, [facility] P DUBOIS KAMALA, DUBOIS KAMALA Unavailable Unavailable RENA, MARIXA G, RENA, Unavailable Unavailable MARIXA G [facility] HARLEY OSCAR, Unavailable Unavailable HARLEY OSCAR KILPELA JEA, KILPELA Unavailable Unavailable JEA ARINA NADINE, ARINA NADINE Unavailable Unavailable KOSTELIC MONTSERRAT, Unavailable Unavailable KOSTELIC [...] HOLDINGS, [facility] [employer] [facility], Unavailable Unavailable [facility] JUAN KAMALA, Unavailable Unavailable JUAN KAMALA TONO MARTINEZ, Unavailable Unavailable TONO MARTINEZ HAYWOOD MARION, HAYWOOD Unavailable Unavailable MARION JESICA JAM, JESICA JAM Unavailable Unavailable TIAGO JR DWI, TIAGO Unavailable Unavailable JR DWI LUKINS TIERRA, LUKINS Unavailable Unavailable TIERRA [facility] Unavailable Unavailable SERVICES, [facility] MAKSIM II, NESHA A, Unavailable Unavailable MAKSIM II, NESHA A THOMPSON JAM, Unavailable Unavailable [facility] Unavailable Unavailable OF THE B, [facility], Unavailable Unavailable [facility] ANUPAM SANCHES, Unavailable Unavailable SANCHES, TADARRO RICHY HOLLIS G, Unavailable Unavailable HOLLISRICHY XIONG G MOE CHET, MOE CHET Unavailable Unavailable SEETHARMRAJU HAZEL, Unavailable Unavailable SEETHARMRAJU HAZEL JENNIFER BOSCH, Unavailable Unavailable JENNIFER BOSCH [facility] Unavailable Unavailable EQUIPME, [facility] Unavailable Unavailable [facility], [facility] TIM JUAREZ, Unavailable Unavailable TIM JUAREZ, Unavailable Unavailable SADIE GIRARD PRE, SHAJI Unavailable Unavailable PRE [facility], Unavailable Unavailable [facility] Unavailable Unavailable [facility] INTER GERALD MINA, Unavailable Unavailable ALEJO STRICKLAND, Unavailable Unavailable ALEJO AVENDANO III TRISTA, Unavailable Unavailable YUNI III DEONDRE MERCADO Unavailable [facility]available [facility], Unavailable [facility]available [facility] Purpose Continuity of Care Document - 07-10-2007 through 2016 Problems Code Diagnosis DOS Provider Status 486 PNEUMONIA, 03-16-2014 [facility] UNSPECIFIED MEDICAL EQUIPME 496 CHRONIC 03-16-2014 [facility] OBSTRUCTION MEDICAL NEC EQUIPME 515 POSTINFLAMM 03-19-2013 [place] [facility] PULMONARY [facility] FIBROSIS 7245 UNSPECIFIED 03-19-2013 [place] [facility] 09269 OTHER 03-19-2013 [facility] [place] [place] 70008 OBSTRUCTIVE 03-10-2013 [facility] SLEEP HOME APNEA MEDICAL EQUIPME 88343 OTHER 03-07-2013 [place] [facility] LUNG NOT INC ELSEWHERE CLASSIFIED 7242 LUMBAGO 03-06-2013 [facility] INC V571 OTHER 03-06-2013 [facility] THERAPY INC 23782 OTHER 03-01-2013 [place] [facility] CONDITIONS [facility] OF BRAIN FOUNDAT[facility] 7140 RHEUMATOID 03-01-2013 [place] [facility] ARTHRITIS SERV [facility] 7840 HEADACHE 03-01-2013 [facility] 63234 DIARRHEA 03-01-2013 [place] [facility] 7930 NONSPECIFIC 03-01-2013 [facility] ABN FNDNG SERV RAD & OTH FOUNDATIO EXM SKULL & HEAD E8889 UNSPECIFIED 03-01-2013 [place] [facility] FALL [facility] 21057 OTHER 02-28-2013 [place] [facility] CHRONIC SERV PAIN F[facility] 4019 UNSPECIFIED 02-28-2013 [facility] ESSENTIAL SERV HYPERTENSIO FOUNDATIO N 31411 FEVER 02-28-2013 [place] [facility] UNSPECIFIED SERV [facility] 69006 OTHER 02-28-2013 [facility] NONSPECIFIC SERV ABNORMAL FOUNDATIO FINDING OF LUNG FIELD 412 OLD 02-27-2013 [facility] INFARCTION 15544 CORONARY 02-27-2013 [facility] [place] CORONARY ARTERY 4829 UNSPECIFIED 02-27-2013 [facility] PNEUMONIA SERVICE 5184 UNSPECIFIED 02-27-2013 [facility] ACUTE SERV EDEMA OF FOUNDATIO LUNG 5849 ACUTE 02-27-2013 [facility] FAILURE UNSPECIFIED 25597 RHEUMATOID 02-27-2013 [facility] V4361 SHOULDER 02-27-2013 [facility] JOINT SERV REPLACEMENT FOUNDATIO BY OTHER MEANS V462 DEPENDENCE 02-27-2013 [facility] FOR SUPPLEMENTA L OXYGEN 84383 OBSTRUCTIVE 02-26-2013 [facility] P WITH EXACERBATIO N V5869 LONG-TERM 02-20-2013 [facility] USE OF [place] OTHER MEDICATIONS V6751 F/U EXAM 02-20-2013 [facility] FOLLOW CMPL [place] [facility] W/HIGH-RISK MED NEC 57500 COR 02-12-2013 [facility] UNSPEC TYPE VESSEL CREEK/RAUL T 4940 BRONCHIECTA 01-31-2013 [place] [facility] SIS WITHOUT SERV ACUTE FOUNDATIO EXACERBATIO N 26868 IDIOPATHIC 01-31-2013 [facility] 7856 ENLARGEMENT 01-31-2013 [place] [facility] OF LYMPH SERV NODES FOUNDAT[facility] 11557 SHORTNESS 01-31-2013 [place] [facility] OF BREATH SERV F[facility] 13477 OTHER 01-31-2013 [facility] RESPIRATORY AMBULANCE SERVICE COMPLICATIO NS 0529 VARICELLA 01-06-2013 A Candice PINZON MD PSC MENTION OF COMPLICATIO N 7862 COUGH 01-06-2013 A Candice COLBERT MD PSC 4660 ACUTE 11-06-2012 A Candice COLBERT BRONCHITIS PSC V5812 ENCOUNTER 09-25-2012 [facility] ANTINEOPLAS [place] TIC IMMUNOTHERA PY 2859 UNSPECIFIED 08-31-2012 [facility] 4841 PNEUMONIA 08-31-2012 [place] [facility] IN [facility] CYTOMEGALIC FOUNDAT[facility] INCLUSION DISEASE 5168 OTH SPEC 08-31-2012 [place] [facility] ALVEOL&DEONNA SERV ETOALVEOL FOUNDATIO PNEUMONOPAT HIES 75133 NAUSEA WITH 08-02-2012 [place] [facility] VOMITING SERV [facility] V1209 PERSONAL HX 08-02-2012 [facility] OTH SERV INFECTIOUS& FOUNDATIO PARASITIC DISEASE 2724 OTHER AND 07-31-2012 [facility] HYPERLIPIDE ALEKSANDAR 5589 OTH&UNSPEC 07-31-2012 [place] [facility] NONINFECTIO SERV US FOUNDATIO GASTROENTER ITIS&COLITI S 10016 VOMITING 07-31-2012 [facility] INTER 94561 ABDOMINAL 07-31-2012 [place] [facility] PAIN, SERV EPIGASTRIC FOUNDAT[facility] 58333 SYSTEMIC 07-31-[address] [facility] Y RESPONSE SYNDROME UNSPEC V1269 PERSONAL 07-31-2012 [place] [facility] H[facility] OTHER F[facility]ATIO DISEASES RESPIRATORY SYS 514 PULMONARY 07-03-2012 [facility] [place] [facility] AND HYPOSTASIS 7295 PAIN IN 07-03-2012 JERRI ESPERANZA SOFT TISSUES OF LIMB 7823 EDEMA 07-03-2012 JER[facility] ESPERANZA 5119 UNSPECIFIED 07-01-2012 [facility] [place] PLEURAL [facility] EFFUSION 87092 OTHER 06-20-2012 [place] [facility] DISEASES OF SERV NASAL FOUNDATIO CAVITY AND SINUSES 5121 IATROGENIC 06-16-2012 [place] [facility] PNEUMOTHROA SERV X [facility]AT[facility] 31183 ACUTE AND 06-16-2012 [place] [facility] CHRONIC [facility] RESPIRATORY FOUNDAT[facility] FAILURE 23012 SEPTIC 06-16-2012 [place] [facility] SHOCK SERV [facility] 0785 CYTOMEGALOV 06-15-2012 [facility] [place] [place] [facility] 76580 CHEST PAIN 06-15-2012 [facility] CTR OF THE B 7850 UNSPECIFIED 06-11-2012 [place] [facility] TACHYCARDIA F[facility] 4279 UNSPECIFIED 05-17-2012 [place] [facility] CARDIAC SERV DYSRHYTHMIA FOUNDATIO 32213 ACUTE 05-17-2012 [place] [facility] RESP[facility]ATORY SERV FAILURE FOUNDATIO 90216 OTHER 04-24-2012 [facility] BRUNILDA SEPTICEMIA 1124 CANDIDIASIS 04-24-2012 [facility] 5070 PNEUMONITIS 04-24-2012 [facility] INHALATION OF FOOD OR VOMITUS 5100 EMPYEMA 04-24-2012 [facility] FISTULA 5183 PULMONARY 04-22-2012 [facility] A IMAGING ASS 66597 REFLUX 08-03-2011 [place] ESOPHAGITIS KALYAN 66648 OTHER 08-03-2011 [facility] SYMPTOMS KAL[facility]AN INVOLVING DIGESTIVE SYSTEM OTHER 490 BRONCHITIS 07-13-2010 [facility] NOT KALYAN SPECIFIED ACUTE OR CHRONIC 02722 ASTHMA, 07-13-2010 [facility] UNSPECIFIED KALYAN , UNSPECIFIED STATUS 16218 PAIN IN 07-08-2010 [place] JOINT, [facility] ANKLE AND FOOT 55186 DISORDER OF 07-08-2010 [facility] BONE AND SERV CARTILAGE FOUNDATIO UNSPECIFIED V454 ARTHRODESIS 07-08-2010 [facility] STATUS SERV FOUNDATIO V5489 OTHER 07-08-2010 [facility] AFTERCARE V5409 OTH 06-17-2010 [facility] AFTERCARE SERV INVOLVING FOUNDATIO INTERNAL FIXATION DEVICE V6700 FOLLOW-UP 06-01-2010 [facility] EXAMINATION SERV FOLLOWING FOUNDATIO UNSPEC SURGERY 06472 PRIMARY 05-12-2010 [facility] LOCALIZED SERV OSTEOARTHRO FOUNDATIO SIS ANKLE AND FOOT 94549 PAIN IN 05-12-2010 [facility] JOINT, SERV LOWER LEG FOUNDATIO V0481 NEED 05-12-2010 [facility] C VACCINATION &INOCULATIO N FLU V5849 OTHER 05-12-2010 [facility] SPECIFIED SERV AFTERCARE FOUNDATIO FOLLOWING SURGERY 4659 ACUTE URIS 04-17-2010 [place] OF KALYAN UNSPECIFIED SITE 80733 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 [facility] RHEUMATISM SERV ANKLE AND FOUNDATIO FOOT 04028 PAIN IN 04-02-2010 [facility] JOINT, AMERIC UPPER ARM HOLDING 01322 OBST 03-12-2010 [facility] P W/ACUTE BRONCHITIS 10707 PAINFUL 03-12-2010 [facility] 62145 UNSPECIFIED 05-20-2009 [facility] BANERJEE ARTHROPATHY SITE UNSPECIFIED 4011 ESSENTIAL 05-09-2009 [place] HYPERTENSIO FAMILY PHYS N, BENIGN PSC 28588 OTHER CHEST 05-09-2009 [place] PAIN GEREMIAS V7651 SPECIAL 05-09-2009 [place] SCREENING GEREMIAS FOR MALIGNANT NEOPLASMS COLON 7808 GENERALIZED 05-05-2009 [facility] BANERJEE HYPERHIDROS IS 5960 BLADDER 03-18-2009 [facility] [place] INC OBSTRUCTION 2720 PURE 03-17-2009 [place] HYPERCHOLES GEREMIAS TEROLEMIA 82593 ESOPHAGEAL 03-17-2009 [place] REFLUX GEREMIAS 19805 PRIMARY 03-17-2009 [place] LOCALIZED GEREMIAS OSTEOARTHRO SIS OTH SPEC SITES 42290 OT MEC 11-26-2008 [facility] ORTHOPEDIC DEVC IMPL&GFT 15705 OT COMPS 11-26-2008 [place] [facility] DUE OTH SERV INTRL FOUNDATIO ORTHOPED DEVICE IMPL&GFT 7271 BUNION 11-11-2008 [facility] 56486 NONSPECIFIC 11-11-2008 [facility] ELECTROCARD IOGRAM V4589 OTHER 11-11-2008 [facility] L STATUS OTHER 77822 EFFUSION OF 09-19-2008 [facility]G H JOINT [facility]THOPAEDIC SURGEONS PSC 05200 VILLONODULA 09-19-2008 [facility] SYNOVITIS, ORTHOPAEDIC LOWER LEG SURGEONS PSC 5185 PULMONARY 05-16-2008 [place] [facility]FF[facility]ENCY CY FOLLOW SERVICES [facility] SURGERY 21715 UNSPECIFIED 05-15-2008 [place] [facility] [place]OV[place] [address] EXTRINSIC 11-02-2007 [facility] ASTHMA, PHARMACY UNSPECIFIED 71674 OSTEOARTHRO 07-13-2007 MAKSIM II, SIS UNSPEC NESHA A WHETHER GEN/LOC ANK&FOOT 55832 TENOSYNOVIT 07-13-2007 MAKSIM II, IS OF FOOT NESHA A AND ANKLE Procedures Procedure DOS Code Location Performer Comment O2 CONC 1 E1390 [facility] VIER[facility] DEL [place] 4 HOME HOME 85%/>02 MEDICAL MEDICAL CONC AT EQUIPME EQUIPME PRSC FLW RATE PRTBLE E0431 [facility] VIERA GASEOUS 4 HOME HOME O2 SYS MEDICAL MEDICAL RENT; EQUIPME EQUIPME FLWMTR HUMIDFR&M ASK PULMONARY 89961 [facility] STRESS [address] [facility] SPMTRY 33678 [place] B[place] W/VC 3 MEDICAL NUVIA EXPIRATOR SERV Y RACHEL FOUNDATIO W/WO MXML VOL VNTJ O2 CONC 1 E1390 [facility] VIER[facility] [place] 3 HOME HOME 85%/>02 MEDICAL MEDICAL CONC AT EQUIPME EQUIPME PRSC FLW RATE PRTBLE E0431 [facility] VIERA GASEOUS 3 HOME HOME O2 SYS MEDICAL MEDICAL RENT; EQUIPME EQUIPME FLWMTR HUMIDFR&M ASK NEBULIZER E0570 [facility] VIERA WITH 3 HOME HOME COMPRESSO MEDICAL MEDICAL R EQUIPME EQUIPME THERAPEUT 00083 [place] P[place] 1/> 3 [facility] AREAS INC INC EACH 15 MIN EXERCISES E-STIM G0283 [place] [facility] 1/> AREAS 3 [facility]OS[facility] OTH THAN INC INC WND CARE PART TX PLAN E-STIM G0283 [place] [facility] 1/> AREAS 3 MEM HOS[facility] MEM HOSP OTH THAN INC INC WND CARE PART TX PLAN THERAPEUT 72789 [place] [facility] [place] PX 1/> 3 [facility] HOS[facility]OS[facility] AREAS INC INC EACH 15 MIN EXERCISES APPLICATI 34737 [place] [facility] ON 3 [facility] MODALITY INC INC 1/> AREAS HOT/COLD PACKS CONTINUOU E0601 [facility] VIERA S 3 HOME HOME POSITIVE MEDICAL MEDICAL AIRWAY EQUIPME EQUIPME PRESSURE DEVICE THERAPEUT 76064 [place] 1/> 3 [facility] HOS[facility] HOSP AREAS INC INC EACH 15 MIN EXERCISES E-STIM G0283 [place] [facility] 1/> AREAS 3 [facility]OS[facility] MEM HOSP OTH THAN INC INC WND CARE PART TX PLAN CUL BACT 72241 [place] [facility] XCPT 3 [facility] URINE INC INC BLOOD/STO OL AEROBIC ISOL SPUTUM 80326 [place] [facility] OBTAINING 3 [facility] SPEC INC INC AEROSOL INDUCED TX SPX SMR PRIM 19624 [place] [facility] SRC 3 [facility] GRAM/GIEM INC INC SA STAIN BCT FUNGI/LEONIDES L THERAPEUT 57107 [place] [facility] [place] P[place] 1/> 3 [facility] HOS[facility] HOS[facility] AREAS INC INC EACH 15 MIN EXERCISES E-STIM G0283 [place] [facility] 1/> AREAS 3 MEM HOS[facility] MEM HOSP OTH THAN INC INC WND CARE PART TX PLAN RADIOLOGI 83529 [place] KAMALA C EXAM 3 MEDICAL CHEST 2 SERV VIEWS FOUNDATIO FRONTAL&[place] [address] [place] ARINA MCCOY HEAD/BRAI 3 MEDICAL N W/O SERV CONTRAST FOUNDATIO MATERIAL SBSQ 56566 [facility] 3 MEDICAL PRE CARE/DAY SERV 25 FOUNDATIO MINUTES SBSQ 88855 [facility] 3 MEDICAL PRE CARE/DAY SERV 25 FOUNDATIO MINUTES RADIOLOGI 82849 [place] KAMAL[place] C EXAM 3 MEDICAL CHEST 2 SERV VIEWS FOUNDATIO FRONTAL&[place] [address] [place] [facility] INFUSION 3 [facility] THERAPY INC INC PROPHYLAX IS/[place] [address] [place] [facility] INFUSION 3 [facility] THER INC INC PROPH ADDL SEQUENTIA L TO 1 HR AMB A0427 [facility] SERVICE 3 AMBULANCE AMBULANCE ALS SERVICE SERVICE EMERGENCY TRANSPORT LEVEL 1 RADIOLOGI 03089 [place] RUSTAM 3 MEDICAL EXAMINATI SERV ON CHEST FOUNDATIO [place] FRONTAL INITIAL 90412 [facility] 3 MEDICAL PRE CARE/DAY SERV 70 FOUNDATIO MINUTES IAADI 60444 [place] [facility] INFLUENZA 3 [facility] B VIRUS INC INC IAADI 70326 [place] [facility] INFFLUENZ 3 [facility] A A VIRUS INC INC CUL BACT 40306 [place] [facility] XCPT 3 [facility] URINE INC INC BLOOD/STO OL AEROBIC ISOL CUL BACT 34492 [place] [facility] AEROBIC 3 [facility] ADDL INC INC METHS DEFINITIV E EA ISOL SMR PRIM 10254 [place] [facility] SRC 3 [facility] GRAM/GIEM INC INC SA STAIN BCT FUNGI/LEONIDES L SUSCEPTIB 91171 [place] [facility] LTY STDY 3 [facility] ANTIMICRB INC [place] I[place] [address] [place] [facility] INFUSION 3 [facility] THERAPY/P INC INC ROPHYLAXI S /DX 1ST TO 1 HR GROUND A0425 [facility] MILEAGE 3 AMBULANCE AMBULANCE [place] [address] [place] [facility] TROPONIN 3 [facility] QUANTITAT INC INC COURTNEY BLOOD 04356 [place] [facility] COUNT 3 [facility] COMPLETE INC INC AUTO&AUTO DIFRNTL WBC CULTURE 16187 [place] [facility] BACTERIAL 3 [facility] BLOOD INC INC AEROBIC W/ID ISOLATES ECG 23004 [place] [facility] ROUTINE 3 [facility] ECG INC INC W/LEAST 12 LDS TRCG ONLY W/O I&R BASIC 65747 [place] [facility] METABOLIC 3 [facility] PANEL INC INC CALCIUM TOTAL CREATINE 15792 [place] [facility] KINASE MB 3 [facility] HOSP [facility] FRACTION INC INC ONLY THERAPEUT 66995 [facility] IC PX 1/> 3 [facility] AREAS INC INC EACH 15 MIN EXERCISES PHYSICAL 91794 [place] THERAPY 3 [facility] EVALUATIO INC INC N RADIOLOGI 39829 [place] C 3 [facility] EXAMINATI INC INC ON CHEST [place] FRONTAL CRITICAL 80408 [place] CARE 3 [facility] ILL/INJUR INC INC ED PATIENT INIT 30-74 MIN ECG 04111 [place]ECERR[place] ROUTINE 3 [facility] W/LEAST P 12 LDS I&R ONLY CREATINE 64513 [place] [facility] KINASE 3 [facility] TOTAL INC INC E-STIM G0283 [place] [facility] 1/> AREAS 3 [facility] H[facility]OS[facility] OTH THAN INC INC WND CARE PART TX PLAN BLOOD 63173 [place] [facility] GASES ANY 3 [facility] HOS[facility]OS[facility] INC INC COMBINATI ON PH PCO2 PO2 CO2 HCO3 COLLECTIO 97704 [facility] N VENOUS 3 [facility] HOLDINGS VENIPUNCT URE C-REACTIV 31536 [facility] E PROTEIN 3 [facility] [place] [facility]INGS COMPREHEN 99525 [facility] SIVE 3 [facility] [place] METABOLIC [facility] HOLDINGS PANEL BLOOD 53698 [facility] COUNT 3 [place] COMPLETE [facility]INGS HOLDINGS AUTOMATED NEBULIZER E0570 [facility] VIERA WITH 3 HOME HOME COMPRESSO MEDICAL MEDICAL R EQUIPME EQUIPME O2 CONC 1 E1390 [facility]LIN VIERA DEL PORT 3 HOME HOME 85%/>02 MEDICAL MEDICAL CONC AT EQUIPME EQUIPME PRSC FLW RATE PRTBLE E0431 [facility]LIN VIERA GASEOUS 3 HOME HOME O2 SYS MEDICAL MEDICAL RENT; EQUIPME EQUIPME FLWMTR HUMIDFR&M ASK ARTERIAL 47215 [facility] PUNCTURE 3 Y Y WITHDRAWA [facility] L BLOOD DX CT THORAX 95815 JOINT [facility] W/O 3 Y Y CONTRAST [facility] MATERIAL SPMTRY 63810 [place] KET W/VC 3 MEDICAL EXPIRATOR SERV Y RACHEL FOUNDATIO W/WO MXML VOL VNTJ PULMONARY 29246 [place] STRESS 3 [place]ICAL [place] [address] [place] DIFFUSING 3 MEDICAL CAPACITY SERV F[place] PLETHYSMO 68202 [place] GRAPHY 3 MEDICAL MEDICAL LUNG SERV SERV VOLUMES FOUNDATIO FOUNDATIO W/WO AIRWAY RESIST GASES 91592 JOINT V[facility]URE [facility] BLOOD PH 3 Y Y DIRECT [facility] ANSHU XCPT PULSE OXIMITRY CONTINUOU E0601 [facility] VIERA S 3 HOME HOME POSITIVE MEDICAL MEDICAL AIRWAY EQUIPME EQUIPME PRESSURE DEVICE [facility] 704[address] [place] SEETHARMR DISCHARGE 3 MEDICAL AJU HAZEL DAY SERV MANAGEMEN FOUNDATIO T 30 MIN/< RADIOLOGI 03299 [place] C 3 [facility] EXAMINATI INC INC ON CHEST [place] FRONTAL CUL BACT 32299 [place] AEROBIC 3 [facility] ADDL INC INC METHS DEFINITIV E EA ISOL CUL BACT 56095 [place] XCPT 3 [facility] URINE INC INC BLOOD/STO OL AEROBIC ISOL THER 70538 [place] PROPH/DX 3 [facility] NJX IV INC INC PUSH SINGLE/1S T SBST/[place] [address] [facility] ANGIOGRAP 3 MEDICAL CHEST SERV W/CONTRAS FOUNDATIO T/NONCONT RAST COMPREHEN 30013 [place] SIVE 3 [facility] METABOLIC INC INC PANEL CULTURE 32699 [place] BACTERIAL 3 [facility] BLOOD INC INC AEROBIC W/ID ISOLATES ECG 20957 [place] ROUTINE 3 [facility] ECG INC INC W/LEAST 12 LDS TRCG ONLY W/O I&R SUSCEPTIB 06267 [place] [facility] LTY STDY 3 [facility] ANTIMICRB INC INC IAL MICRO/AGA R DILUTJ SMR PRIM 09833 [place] [facility] SRC 3 [facility] GRAM/GIEM INC INC SA STAIN BCT FUNGI/LEONIDES L BLOOD 18973 [facility] [facility] COUNT 3 [facility] COMPLETE INC INC AUTO&AUTO DIFRNTL WBC AMBULANCE A0429 [facility] SERVICE 3 AMBULANCE AMBULANCE BLS SERVICE SERVICE EMERGENCY TRANSPORT GROUND A0425 [facility] MILEAGE 3 AMBULANCE AMBULANCE PER SERVICE SERVICE STATUTE MILE PRESSURIZ 13467 [place] COLE[place] ED/NONPRE 3 [facility] SSURIZED INC INC INHALATIO N TREATMENT ECG 70535 [place] ORDOÑEZ JR ROUTINE 3 [facility] W/LEAST P 12 LDS I&R ONLY RADIOLOGI 02036 [facility] EXAM 3 MEDICAL CHEST 2 SERV VIEWS FOUNDATIO FRONTAL&L ATERAL PHRM Q0513 YOUR YOUR DISPENSIN 3 PHARMACY PHARMACY G FEE [employer] INHALATIO N RX; PER 30 DAYS ALBUTEROL [id number] YOUR YOUR TO 2.5 3 PHARMACY PHARMACY [facility] [employer] [facility] IPRATROPI UM BROM TO 0.5 MG ADMN SET A7003 YOUR YOUR SM VOL 3 PHARMACY PHARMACY [facility] PNEUMAT NEBULIZR DISPBL O2 CONC 1 E1390 AYLIN VIERA DEL PORT 3 HOME HOME 85%/>02 MEDICAL MEDICAL CONC AT EQUIPME EQUIPME PRSC FLW RATE PRTBLE E0431 AYLIN VIERA GASEOUS 3 HOME HOME O2 SYS MEDICAL MEDICAL RENT; EQUIPME EQUIPME FLWMTR HUMIDFR&M ASK NEBULIZER E0570 AYLIN VIERA WITH 3 HOME HOME COMPRESSO MEDICAL MEDICAL R EQUIPME EQUIPME RADIOLOGI 40893 [place] C EXAM 3 [facility] CHEST 2 INC INC VIEWS FRONTAL&L ATERAL CONTINUOU E0601 AYLIN VIERA S 3 HOME HOME POSITIVE MEDICAL MEDICAL AIRWAY EQUIPME EQUIPME PRESSURE DEVICE 3D 94057 [place] CO[place] RENDERING 3 [facility] W/INTERP INC INC & [place] [address] [place] COLEMAN HEAD/BRAI 3 [facility] N W/O INC INC CONTRAST MATERIAL BLOOD 00566 [place]LE[place] COUNT 3 [facility] COMPLETE INC INC AUTO&[place] [address] [place] COLEMAN TROPONIN 3 [facility] QUANTITAT INC INC COURTNEY CREATINE 19926 [place] COLEMAN KINASE MB 3 [facility] FRACTION INC INC ONLY COMPREHEN 27142 [place] SIVE 3 [facility] METABOLIC INC INC PANEL ECG 75287 [place] ROUTINE 3 [facility] ECG INC INC W/LEAST 12 LDS TRCG ONLY W/O I&R RHYTHM 78022 [place] COLE[place] ECG 1-3 3 [facility] LEADS INC INC TRACING ONLY W/O I&R CREATINE 87824 [place] COLE[place] KINASE 3 [facility] TOTAL INC INC ECG 01653 [place] ORDOÑEZ JR ROUTINE 3 [facility] W/LEAST P 12 LDS I&R ONLY PRTBLE E0431 AYLIN VIERA GASEOUS 3 HOME HOME O2 SYS MEDICAL MEDICAL RENT; EQUIPME EQUIPME FLWMTR HUMIDFR&M ASK NEBULIZER E0570 AYLIN VIERA WITH 3 HOME HOME COMPRESSO MEDICAL MEDICAL R EQUIPME EQUIPME O2 CONC 1 E1390 AYLIN VIERA DEL PORT 3 HOME HOME 85%/>02 MEDICAL MEDICAL CONC AT EQUIPME EQUIPME PRSC FLW RATE CONTINUOU E0601 AYLIN VIERA S 3 HOME HOME POSITIVE MEDICAL MEDICAL AIRWAY EQUIPME EQUIPME PRESSURE DEVICE FULL FACE A7030 AYLIN VIERA MASK 3 HOME HOME USED MEDICAL MEDICAL W/POS EQUIPME EQUIPME ARWAY PRESS DEVICE EA HEADGEAR A7035 AYLIN VIERA USED 3 HOME HOME W/POSITIV MEDICAL MEDICAL E AIRWAY EQUIPME EQUIPME PRESSURE DEVICE O2 CONC 1 E1390 AYLIN VIERA DEL PORT 3 HOME HOME 85%/>02 MEDICAL MEDICAL CONC AT EQUIPME EQUIPME PRSC FLW RATE NEBULIZER E0570 AYLIN VIERA WITH 3 HOME HOME COMPRESSO MEDICAL MEDICAL R EQUIPME EQUIPME PRTBLE E0431 AYLIN VIERA GASEOUS 3 HOME [...] PER SESS TO 2 PER DAY BLOOD 46837 [facility] LAB HEIDI COUNT 3 AMERIC AMERIC COMPLETE HOLDING HOLDING AUTOMATED COMPREHEN 62117 LAB [facility] LAB HEIDI SIVE 3 AMERIC AMERIC METABOLIC HOLDING HOLDING PANEL C-REACTIV 54220 [facility] E PROTEIN 3 AMERIC AMERIC HOLDING HOLDING COLLECTIO 83757 LAB [facility] LAB HEIDI N VENOUS 3 AMERIC AMERIC BLOOD HOLDING HOLDING VENIPUNCT URE PULM G0424 [facility] INCL EXER INC INC 1 HR PER SESS TO 2 PER DAY PULM G0424 [facility] INCL EXER INC INC 1 HR PER SESS TO 2 PER DAY NEBULIZER E0570 AYLIN VIERA WITH 3 HOME HOME COMPRESSO MEDICAL MEDICAL R EQUIPME EQUIPME PRTBLE E0431 AYLIN VIERA GASEOUS 3 HOME HOME O2 SYS MEDICAL MEDICAL RENT; EQUIPME EQUIPME FLWMTR HUMIDFR&M ASK O2 CONC 1 E1390 AYLIN VIERA DEL PORT 3 HOME HOME 85%/>02 MEDICAL MEDICAL CONC AT EQUIPME EQUIPME PRSC FLW RATE PUL G0424 [facility] INCL EXER INC INC 1 HR PER SESS TO 2 PER DAY POLYSOM 61405 [facility] 6/>YRS 3 MEM HOSP MEM [...] TO 2 PER DAY PULM G0424 [facility] INCL EXER INC INC 1 HR PER SESS TO 2 PER DAY PULM G0424 [facility] INCL EXER INC INC 1 HR PER SESS TO 2 PER DAY PULM G0424 [facility] INCL EXER INC INC 1 HR PER SESS TO 2 PER DAY PUL G0424 [facility] INCL EXER INC INC 1 HR PER SESS TO 2 PER DAY STANDARD K0001 AYLIN YONUGCHAI 3 HOME HOME R MEDICAL MEDICAL EQUIPME EQUIPME GAS 27788 [facility] DILUT/WAS 3 [facility] HOUT LUNG INC INC VOL W/WO DISTRIB VENT&V O2 CONC 1 E1390 AYLIN VIERA DEL PORT 3 HOME HOME 85%/>02 MEDICAL MEDICAL CONC AT EQUIPME EQUIPME PRSC FLW RATE NEBULIZER E0570 AYLIN VIERA WITH 3 HOME HOME COMPRESSO MEDICAL MEDICAL R EQUIPME EQUIPME PRTBLE E0431 AYLIN VIERA GASEOUS 3 HOME HOME O2 SYS MEDICAL MEDICAL RENT; EQUIPME EQUIPME FLWMTR HUMIDFR&M ASK BRNCDILAT 59320 [facility] RSPSE 3 [facility] SPMTRY INC INC PRE&POST- BRNCDILAT ADMN CYANOCOBA 12735 [facility] UNIVERS CLARISSE 3 Y Y VITAMIN [facility] B-12 RADIOLOGI 04508 [facility] C EXAM 3 Y Y CHEST 2 [facility] VIEWS FRONTAL&L ATERAL IRON 40190 [facility] UNIVERS BINDING 3 Y Y CAPACITY [facility] [place] [address] [facility] FOLIC 3 Y Y ACID [facility] COMPREHEN 07480 [facility] SIVE 3 Y Y METABOLIC [facility] PANEL RHEUMATOI 11532 [facility] D FACTOR 3 Y Y QUANTITAT [facility] COURTNEY PREALBUMI 02951 [facility] N 3 Y Y HOSPITAL [facility] BLOOD 95217 [facility] COUNT 3 Y Y COMPLETE [facility] AUTO&AUTO DIFRNTL WBC ANTINUCLE 06621 [facility] LAB HEIDI AR 3 Y [facility]IC [facility] HOLDING S [place] FLUORESCE 13109 [facility] NT 3 Y Y NONNFCT [facility] AGT ANTB SCREEN EA ANTIBODY COLLECTIO 84963 [facility] N VENOUS 3 Y Y BLOOD [facility] VENIPUNCT URE STANDARD K0001 AYLIN VIERA WHEELCHAI 3 HOME HOME R MEDICAL MEDICAL EQUIPME EQUIPME O2 CONC 1 E1390 AYLIN VIERA DEL PORT 3 HOME HOME 85%/>02 MEDICAL MEDICAL CONC AT EQUIPME EQUIPME PRSC FLW RATE NEBULIZER E0570 AYLIN VIERA WITH 3 HOME HOME COMPRESSO MEDICAL MEDICAL R EQUIPME EQUIPME PRTBLE E0431 AYLIN VIERA GASEOUS 3 HOME HOME O2 SYS MEDICAL MEDICAL RENT; EQUIPME EQUIPME FLWMTR HUMIDFR&M ASK POLYSOM 70005 [facility] 6/>YRS 3 [facility] H[facility] SLEEP INC INC W/CPAP 4/> [facility]DL [facility] 87384 [facility] 3 MEDICAL JAG DAY SERV MANAGEMEN FOUNDATIO T 30 MIN/< SBSQ 31773 [facility] 3 MEDICAL JAG CARE/DAY SERV 25 FOUNDATIO MINUTES RADEX ABD 83580 [place] DISANTIS COMPL 3 MEDICAL SIDDHARTHA AQT ABD SERV W/S/E/D FOUNDATIO VIEWS 1 VIEW CH RADEX ABD 04199 [place] JESICA JAM COMPL 3 MEDICAL AQT ABD SERV W/S/E/D FOUNDATIO VIEWS 1 VIEW CH INITIAL 02661 [facility] 3 Y OF MAR[place] CARE/DAY [place] [address] [place] [address] [place] SOHEILA ABDOMINAL 3 MEDICAL DEENA REAL SERV TIME FOUNDATIO W/IMAGE LIMITED FULL FACE A7030 AYLIN VIERA MASK 3 HOME HOME USED MEDICAL MEDICAL W/POS EQUIPME EQUIPME ARWAY PRESS DEVICE EA STANDARD K0001 AYLIN VIERA WHEELCHAI 3 HOME HOME R MEDICAL MEDICAL EQUIPME EQUIPME O2 CONC 1 E1390 AYLIN VIERA DEL PORT 3 HOME HOME 85%/>02 MEDICAL MEDICAL CONC AT EQUIPME EQUIPME PRSC FLW RATE NEBULIZER E0570 AYLIN VIERA WITH 3 HOME HOME COMPRESSO MEDICAL MEDICAL R EQUIPME EQUIPME PRTBLE E0431 AYLIN VIERA GASEOUS 3 HOME HOME O2 SYS MEDICAL MEDICAL RENT; EQUIPME EQUIPME FLWMTR HUMIDFR&M ASK SEAT E0156 AYLIN VIERA ATTACHMEN 3 HOME HOME T WALKER MEDICAL MEDICAL EQUIPME EQUIPME WALKER E0143 AYLIN VIERA FOLDING 3 HOME HOME WHEELED MEDICAL MEDICAL ADJUSTABL EQUIPME EQUIPME E/FIXED HEIGHT DUP-SCAN 77557 JERRI JERRI XTR VEINS 3 ESPERANZA ESPERANZA COMPLETE BILATERAL STUDY RADIOLOGI 02910 [facility] [place] KOSTELIC C EXAM 3 RADIOLOGY MONTSERRAT CHEST 2 VIEWS FRONTAL&L ATERAL RADIOLOGI 50819 [facility] [place] NOEL C EXAM 3 RADIOLOGY GODFREY CHEST 2 VIEWS FRONTAL&L ATERAL MRI BRAIN 38402 [place] LUKINS BRAIN 3 MEDICAL TIERRA STEM W/O SERV CONTRAST FOUNDATIO MATERIAL SBSQ 47665 [facility] 3 E CARE CARE/DAY CTR OF 15 THE B MINUTES [facility] [address] [place] HARLEY INCL 3 MEDICAL OSCAR FLUOR SERV GDNCE DX FOUNDATIO W/CELL WASHG SPX SBSQ 85893 [facility] 3 E CARE CARE/DAY CTR OF 25 THE B MINUTES CLOSED 3324 [facility] BIOPSY OF 3 Y Y BRONCHUS [facility] VENOUS 3893 [facility] CATHETER 3 Y Y [facility] NOT ELSEWHERE CLASSIFIE D ECG 16286 TARAS NEVAREZ CHI ROUTINE 3 MEDICAL ECG SERV W/LEAST FOUNDATIO 12 LDS I&R ONLY ECG 25334 TARAS HU ROUTINE 3 MEDICAL NAN ECG SERV W/LEAST FOUNDATIO 12 LDS I&R ONLY CONTINUOU E0601 AYLIN VIERA S 2 HOME HOME POSITIVE MEDICAL MEDICAL AIRWAY EQUIPME EQUIPME PRESSURE DEVICE STANDARD K0001 AYLIN ABARCARELL WHEELCHAI 2 HOME HOME R MEDICAL MEDICAL EQUIPME EQUIPME THORACOSC 3320 [facility] LUNG 2 Y Y BIOPSY [facility] ECG 50994 TARAS NEVAREZ CHI ROUTINE 2 MEDICAL ECG SERV W/LEAST FOUNDATIO 12 LDS I&R ONLY ECG 48780 TARAS ROSENBERG ROUTINE 2 MEDICAL ECG SERV W/LEAST FOUNDATIO 12 LDS I&R ONLY ECG 89298 TARAS NEVAREZ CHI ROUTINE 2 MEDICAL ECG SERV W/LEAST FOUNDATIO 12 LDS I&R ONLY ECG 35934 TARAS HU ROUTINE 2 MEDICAL NAN ECG SERV W/LEAST FOUNDATIO 12 LDS I&R ONLY INSERTION 9604 [facility] 9671 [facility] 2 Y Y [facility] < 96 CONSECUTI VE HOURS RADIOLOGI 87577 [place] DAWNA 2 MEDICAL TIERRA EXAMINATI IMAGING ON CHEST ASS SINGLE VIEW FRONTAL RADIOLOGI 29385 [facility] 2 MEDICAL TIERRA EXAMINATI IMAGING ON CHEST ASS SINGLE VIEW FRONTAL ADMN SET A7003 YOUR YOUR SM VOL 2 PHARMACY PHARMACY [facility] PNEUMAT NEBULIZR DISPBL PHARM G0333 YOUR YOUR DISPEN 2 PHARMACY PHARMACY [facility] [employer] RX; INITIAL 30-DAY SUPPLY ALBUTEROL J7620 YOUR YOUR TO 2.5 2 PHARMACY PHARMACY [facility] IPRATROPI UM BROM TO 0.5 MG ECG 09982 POPPY JESSICA ROUTINE 2 EMERGENCY VENUS ECG SERVICES W/LEAST 12 LDS I&R ONLY RADIOLOGI 86926 YAZ TONEY C EXAM 2 MEDICAL TIERRA CHEST 2 IMAGING VIEWS ASS FRONTAL&L ATERAL BLOOD 23484 [facility] OCCULT 2 N N PEROXIDAS COMMUNITY COMMUNITY E ACTV HOSPITA HOSPITA QUAL FECES 1-3 SPEC SMR PRIM 46389 [facility] SRC 2 N N GRAM/GIEM COMMUNITY COMMUNITY SA STAIN HOSPITA HOSPITA BCT FUNGI/LEONIDES L OVA&CHAD 72689 [facility] ITES 2 N N DIRECT COMMUNITY COMMUNITY SMEARS HOSPITA HOSPITA CONCENTRA TION & ID SMR PRIM 75463 [facility] SRC CPLX 2 N N SPEC COMMUNITY COMMUNITY STAIN HOSPITA HOSPITA OVA&CHAD ITS BLOOD 73193 CULBERTSO CULBERTSO OCCULT 2 N KALYAN N KALYAN PEROXIDAS E ACTV QUAL FECES 1 DETER COLLECTIO 58082 LAB [facility]I LAB HEIDI N VENOUS 2 AMERIC AMERIC BLOOD HOLDING HOLDING VENIPUNCT URE C-REACTIV 22343 LAB HE[facility]I LAB HEIDI E PROTEIN 2 AMERIC AMERIC HOLDING HOLDING COMPREHEN 32424 LAB HEIDI LAB HEIDI SIVE 2 AMERIC AMERIC METABOLIC HOLDING HOLDING PANEL BLOOD 19005 LAB HEIDI LAB HEIDI COUNT 2 AMERIC AMERIC COMPLETE HOLDING HOLDING AUTOMATED BLOOD 93073 LAB HEIDI LAB HEIDI COUNT 1 AMERIC AMERIC COMPLETE HOLDING HOLDING AUTOMATED COMPREHEN 70778 LAB HEIDI LAB HEIDI SIVE 1 AMERIC AMERIC METABOLIC HOLDING HOLDING PANEL C-REACTIV 11782 LAB HEIDI LAB HEIDI E PROTEIN 1 AMERIC AMERIC HOLDING HOLDING COLLECTIO 52024 LAB HEIDI LAB HEIDI N VENOUS 1 AMERIC AMERIC BLOOD HOLDING HOLDING VENIPUNCT URE RADEX 18535 [facility] 1 Y Y COMPLETE HOSPITAL HOSPITAL MINIMUM 3 VIEWS WALKING L4360 [facility] BOOT 1 PNEUMATC &/ VACUUM PREFAB CUSTM FIT LIPID 42374 [facility] PANEL 1 [facility] COLLECTIO 75016 [facility] N VENOUS 1 [facility] BLOOD VENIPUNCT URE TRANSFERA 18358 [facility] SE 1 [facility] ASPARTATE AMINO AST SGOT APPLICATI 69248 [place] TARAS ON SHORT 1 MEDICAL MEDICAL LEG CAST SERV SERV WALKING/A FOUNDATIO FOUNDATIO MBULATORY CAST Q4038 TARAS MARTINEZ SUPPLIES 1 MEDICAL KAMALA SHORT LEG SERV CAST FOUNDATIO ADULT FIBERGLAS S RADIOLOGI 51030 [facility] C 1 Y Y [facility] ON FOOT 2 VIEWS CAST Q4038 TARAS MARTINEZ SUPPLIES 1 MEDICAL KAMALA SHORT LEG SERV CAST FOUNDATIO ADULT FIBERGLAS S APPLICATI 05689 [place] TARAS ON SHORT 1 MEDICAL MEDICAL LEG CAST SERV SERV BELOW FOUNDATIO FOUNDATIO KNEE-TOE [facility] G0378 [facility] OBSERVATI 0 Y Y ON HOSPITAL HOSPITAL SERVICE PER HOUR PHYSICAL 36775 [facility] THERAPY 0 Y Y EVALUATIO [facility] N [address]39 DE GERALD GUIDANCE 0 MEDICAL JUS NEEDLE SERV PLACEMENT FOUNDATIO IMG S&I BONE 79964 [facility] GRAFT ANY 0 Y Y DONOR HOSPITAL HOSPITAL AREA MAJOR/LAR GE FLUOROSCO 33524 [facility] PY SPX >1 0 Y Y [facility] H[facility]PITAL PHYS/QHP TIME INJECTION 27930 [place] JUDITHINSCOTT 0 MEDICAL JUS ANESTHETI SERV C AGENT FOUNDATIO SCIATIC NRV SINGLE INJECTION 76104 DE JUDITHINSCOTT 0 MEDICAL JUS ANESTHETI SERV C AGENT FOUNDATIO FEMORAL NERVE SINGLE ANESTHESI 93888 DE GERALD A ON BONY 0 MEDICAL JUS PELVIS SERV FOUNDATIO ARTHRODES 49382 [facility] 0 Y Y SUBTALAR [facility] SMR PRIM 70886 LAB HE[facility]I LAB HEIDI SRC 0 AMERIC AMERIC GRAM/GIEM HOLDING HOLDING SA STAIN BCT FUNGI/LEONIDES L CUL BACT 34941 LAB HE[facility]I LAB HEIDI XCPT 0 AMERIC AMERIC URINE HOLDING HOLDING BLOOD/STO OL AEROBIC ISOL CULTURE 50072 LAB HE[facility]I LAB HEIDI BACTERIAL 0 AMERIC AMERIC ANY HOLDING HOLDING SOURCE ANAEROBIC ISO&ID THER 29318 [facility] PROPH/DX 0 [facility] NJX IV INC INC PUSH SINGLE/1S T SBST/DRUG RADIOLOGI 96527 YAZ LOVECHER C 0 MEDICAL TIERRA EXAMINATI IMAGING ON CHEST ASS SINGLE VIEW FRONTAL ECG 51093 [facility] COLEMAN ROUTINE 0 [facility] ECG INC INC W/LEAST 12 LDS TRCG ONLY W/O I&R CREATINE 09463 [facility] KINASE 0 [facility] TOTAL INC INC CREATINE 47745 [facility] COLEMAN KINASE MB 0 [facility] FRACTION INC INC ONLY BASIC 46012 [facility] [facility] METABOLIC 0 [facility] PANEL INC INC CALCIUM TOTAL PRESSURIZ 74165 [facility] [facility] ED/NONPRE 0 [facility] SSURIZED INC [place] [address] [facility] [facility] TROPONIN 0 [facility] QUANTITAT INC INC COURTNEY BLOOD 08386 [facility] COUNT 0 [facility] COMPLETE INC INC AUTO&AUTO DIFRNTL WBC ECG 27966 POPPY MORRISSEY ROUTINE 0 EMERGENCY III TRISTA ECG SERVICES W/LEAST 12 LDS I&R ONLY DUP-SCAN 36602 [facility] XTR VEINS 0 [facility] INC INC UNILATERA L/LIMITED STUDY CT LOWER 96553 [facility] EXTREMITY 0 [facility] W/O INC INC CONTRAST MATERIAL 3D 55749 [facility] RENDERING 0 [facility] INC INC W/INTERP& POSTPROC DIFF WORK STATION INJECTION J1040 DIMITRIO CULBERTSO 9 N, GEREMIAS DOUGHERTY METHYLPRE DNISOLONE ACETATE 80 MG BLOOD 95806 DIMITRIO CULBERTSO OCCULT 9 N, GEREMIAS DOUGHERTY PEROXIDAS E ACTV QUAL FECES 1 DETER MYOCRD 44965 [facility] 9 N N [facility] QUAL/RENEE STD MYOCRD 92900 [facility]G 9 N N [facility] STD TECHNETIU A9500 [facility] M TC-99M 9 N N SESTAMIBI [facility] DX PER HOSPITAL HOSPITAL STUDY DOSE CV STRS 35706 MONICA ANDERSON TST 9 N, GEREMIAS DOUGHERTY&/OR RX CONT ECG W/O I&R CV STRS 38834 [facility] TST 9 N N XERS&/OR [facility] RX CONT [facility] ECG TRCG ONLY CV STRS 54431 MONICA ANDERSON TST 9 N, GEREMIAS DOUGHERTY&/OR RX CONT ECG I&R ONLY MYOCRD 54368 [facility] PRFUJ STD 9 N N EJEC FXJ [facility] [place] [place] [address] [facility] IRON 9 [facility] COLLECTIO 62070 [facility] OF N VENOUS 9 [facility] BLOOD VENIPUNCT URE IRON 35705 [facility] BINDING 9 [facility] CAPACITY COLLECTIO 82533 [facility] N VENOUS 9 [facility] BLOOD VENIPUNCT URE BLOOD 99996 [facility] OF COUNT 9 [facility] COMPLETE AUTO&AUTO DIFRNTL WBC INFLUENZA G9141 MONICA ANDERSON A H1N1 9 N, GEREMIAS DOUGHERTY IMMUNIZAT ION ADMINISTR ATION REPR/SRVC K0739 ALLIED ALLIED DME NOT 9 HOME HOME O2 RQR MEDICAL, MEDICAL, TECH INC. INC. CMPNT PER 15 MINS PWR E2365 ALLIED ALLIED WHLCHAIR 9 HOME HOME ACSS U-1 MEDICAL, MEDICAL, SEALED INC. INC. LEAD ACID BATTRY EA SUSCEPTIB 45126 LAB [facility]I LAB HEIDI LTY STDY 9 AMERIC AMERIC ANTIMICRB HOLDING HOLDING IAL MICRO/AGA R DILUTJ SMR PRIM 93020 LAB [facility] LAB HEIDI SRC 9 AMERIC AMERIC GRAM/GIEM HOLDING HOLDING SA STAIN BCT FUNGI/LEONIDES L CUL BACT 69908 LAB [facility]I LAB HEIDI XCPT 9 AMERIC AMERIC URINE HOLDING HOLDING BLOOD/STO OL AEROBIC ISOL CULTURE 58596 LAB HE[facility]I LAB HEIDI BACTERIAL 9 AMERIC AMERIC ANY HOLDING HOLDING SOURCE ANAEROBIC ISO&[place] [address] [facility] OF PROSTATE 9 [facility] SPECIFIC ANTIGEN TOTAL COLLECTIO 73255 [facility] OF N VENOUS 9 [facility] BLOOD VENIPUNCT URE COMPREHEN 84684 [facility] OF SIVE 9 [facility] METABOLIC PANEL LIPID 41365 [facility] PANEL 9 [facility] INJECTION J0690 [facility] 9 [facility] SODIUM 500 MG INJECTION J2270 [facility] MORPHINE 9 Y Y SULFATE [facility] UP TO 10 MG SMR PRIM 01228 [facility] SRC 9 Y Y GRAM/GIEM [facility] SA STAIN BCT FUNGI/LEONIDES L INJECTION J2175 [facility] 9 Y Y MEPERIDIN [facility] E HCL PER 100 MG RINGERS J7120 [facility] LACTATE 9 Y Y INFUSION [facility] UP TO 1000 CC CUL BACT 83047 [facility] XCPT 9 Y Y URINE HOSPITAL [facility] BLOOD/STO OL AEROBIC ISOL FLUOROSCO 34670 [facility] PY SPX >1 9 Y Y [facility] PHYS/QHP TIME L[place]EL I [address] [facility] SURG 9 Y Y PATHOLOGY HOSPITAL HOSPITAL GROSS EXAMINATI ON ONLY REMOVAL 43980 [facility] IMPLANT 9 Y Y [facility] INJECTION J3010 [facility] FENTANYL 9 Y Y [facility] 0.1 MG COLLECTIO 46978 [facility] N VENOUS 9 Y Y BLOOD HOSPITAL HOSPITAL VENIPUNCT URE RADEX 60783 [facility] FOOT 9 Y Y [facility]TE [facility] HOSPITAL MINIMUM 3 VIEWS BLOOD 86007 [facility] COUNT 9 Y Y [facility]OSPITAL AUTOMATED BASIC 74185 [facility] METABOLIC 9 Y Y PANEL HOSPITAL [facility] CALCIUM TOTAL ECG 96668 [facility] ROUTINE 9 Y Y ECG [facility] W/LEAST 12 LDS TRCG ONLY W/O I&R ECG 14419 [place] RENA, ROUTINE 9 MEDICAL MARIXA G ECG SERV W/LEAST FOUNDATIO 12 LDS I&R ONLY SMR PRIM 78825 [facility] SRC 9 Y Y GRAM/GIEM [facility] SA STAIN BCT FUNGI/LEONIDES L CELL 78267 [facility] COUNT 9 Y Y MISC BODY [facility] FLUIDS W/DIFFERE NTIAL COUNT COLLECTIO 47990 [facility] N VENOUS 9 Y Y BLOOD [facility] VENIPUNCT URE CUL BACT 19700 [facility] XCPT 9 Y Y URINE [facility] BLOOD/STO OL AEROBIC ISOL ARTHROCEN 56275 [facility] MAKSIM TESIS 9 LTH II, NESHA ASPIR&/IN ORTHOPAED A J MAJOR IC JT/BURSA SURGEONS W/O US PSC INJ J0702 [facility] MAKSIM BETAMETHA 9 LTH II, NESHA SONE ORTHOPAED A ACETATE & IC SURGEONS PHOSPHATE PSC 3 MG REP/NONRO E1340 ALLIED ALLIED UTINE 9 HOME HOME SRVC DME MEDICAL, MEDICAL, RQR SKL INC. INC. TECH LABR-15 MIN PWR E2365 ALLIED ALLIED WHLCHAIR 9 HOME HOME ACSS U-1 MEDICAL, MEDICAL, SEALED INC. INC. LEAD ACID BATTRY EA SBSQ 35222 [facility] 8 EMERGENCY N, CARE/DAY SERVICES TADARRO 25 MINUTES ASSOCIATE S LEVEL III 31730 [place] ANN, SURG 8 MEDICAL TIM E PATHOLOGY SERV FOUNDATIO GROSS&VENUS ROSCOPIC EXAM ANESTH 84942 [facility] EMMY DIAGNOSPIERCE 8 [facility] REEMA Harvey ANESTHESI ARTHROSCO A PSC PIC PROC KNEE JOINT INITIAL 91587 [facility] INPATIENT 8 EMERGENCY N, CONSULT SERVICES TADARRO NEW/ESTAB PT 110 ASSOCIATE MIN S COLONOSCO 39001 [facility] [place], PY FLX DX 8 [place] RICHY G W/COLLJ GASTROENT SPEC WHEN PFRMD ANES 33430 TARAS BOSCH, LOWER 8 ANESTHESI JENNIFER Vieira INTESTINE A GROUP PSC ENDOSCOPY DISTAL DUODENUM CUL BACT 93931 [facility] XCPT 8 Y Y URINE HOSPITAL [facility] BLOOD/STO OL AEROBIC ISOL CELL 42274 [facility] COUNT 8 Y Y MISC BODY [facility] FLUIDS W/DIFFERE NTIAL COUNT SMR PRIM 93439 [facility] SRC 8 Y Y GRAM/GIEM HOSPITAL [facility] SA STAIN BCT FUNGI/LEONIDES L ALBUTEROL J7620 PULMO PULMO TO 2.5 8 DOSE DOSE MG & PHARMACY PHARMACY IPRATROPI UM BROM TO 0.5 MG SMALL A7004 PULMO PULMO VOLUME 8 DOSE DOSE NONFILTR PHARMACY PHARMACY PNEUMATIC NEBULIZER DISPBL PHRM Q0514 PULMO PULMO DISPENSIN 8 DOSE DOSE G FEE PHARMACY PHARMACY INHALATIO N RX; PER 90 DAYS ADMN SET A7003 PULMO PULMO SM VOL 8 DOSE DOSE NONFILTR PHARMACY PHARMACY PNEUMAT NEBULIZR DISPBL ADMN SET A7003 PULMO PULMO SM VOL 8 DOSE DOSE NONFILTR PHARMACY PHARMACY PNEUMAT NEBULIZR DISPBL PHRM Q0513 PULMO PULMO DISPENSIN 8 DOSE DOSE G FEE PHARMACY PHARMACY INHALATIO N RX; PER 30 DAYS ALBUTEROL J7620 PULMO PULMO TO 2.5 8 DOSE DOSE MG & PHARMACY PHARMACY IPRATROPI UM BROM TO 0.5 MG SMALL A7004 PULMO PULMO VOLUME 8 DOSE DOSE NONFILTR PHARMACY PHARMACY PNEUMATIC NEBULIZER DISPBL DUP-SCAN 48260 [facility] LXTR 8 N N ART/ARTL [facility] COMPL BI STUDY PHRM Q0513 PULMO PULMO DISPENSIN 8 DOSE DOSE G FEE PHARMACY PHARMACY INHALATIO N RX; PER 30 DAYS ALBUTEROL J7620 PULMO PULMO TO 2.5 8 DOSE DOSE MG & PHARMACY PHARMACY IPRATROPI UM BROM TO 0.5 MG ALBUTEROL J7620 PULMO PULMO TO 2.5 8 DOSE DOSE MG & PHARMACY PHARMACY IPRATROPI UM BROM TO 0.5 MG PHRM Q0513 PULMO PULMO DISPENSIN 8 DOSE DOSE G FEE PHARMACY PHARMACY INHALATIO N RX; PER 30 DAYS SMALL A7004 PULMO PULMO VOLUME 8 DOSE DOSE NONFILTR PHARMACY PHARMACY PNEUMATIC NEBULIZER DISPBL ADMN SET A7003 PULMO PULMO SM VOL 8 DOSE DOSE NONFILTR PHARMACY PHARMACY PNEUMAT NEBULIZR DISPBL RADIOLOGI [id number] MAKSIM MAKSIM C 8 II, NESHA II, NESHA EXAMINATI A A ON KNEE 1/2 VIEWS RADIOLOGI 45942 MAKSIM MAKSIM C EXAM 8 II, NESHA II, NESHA KNEE A A COMPLETE 4/MORE VIEWS PHR Q0513 PULMO PULMO DISPENSIN 8 DOSE DOSE G FEE PHARMACY PHARMACY INHALATIO N RX; PER 30 DAYS ALBUTEROL J7620 PULMO PULMO TO 2.5 8 DOSE DOSE MG & PHARMACY PHARMACY IPRATROPI UM BROM TO 0.5 MG Encounters Encounter Start End Date Code Location Performer Type Date [facility] 3 3 Y [facility] [place] [facility] 3 [facility] [place] [facility] TARAS SALAZAR DEPT 3 3 MEDICAL JORGE VISIT SERV HIGH FOUNDATIO SEVERITY& THREAT [facility] - 3 3 Y [facility] [place] [facility] 3 3 [facility] 00595 AR[facility]ITIS ALBERT[facility] 3 3 CENTER T [facility]ISIT OF 25 [facility] 3 3 Y [facility] [place] - 3 3 [facility] 47224 POPPY SANTA DEPT 3 3 EMERGENCY VISIT SERVICES [facility]IGH SEVERITY& THREAT [facility] [place] [facility] 3 3 [facility] 04185 A Candice LA[facility]CANO OUTPATIEN 3 3 FILEMON SHAH T VISIT [facility] [place] [facility] 3 3 [facility] OUTPATIEN [facility] EMERGENCY 46682 POPPY SANTA DEPT 3 3 EMERGENCY VISIT SERVICES HIGH SEVERITY& THREAT [facility] EMERGENCY [address]50 [place] 3 3 [facility] T VISIT HIGH/URGE NT SEVERITY OFFICE 11007 ARTHRITIS ALBERTO RIT OUTPATIEN 3 3 CENTER T VISIT OF 25 [facility] OFFICE 44162 Avtar LAZCANO OUTPATILENNY 3 3 FILEMON SHAH T VISIT [facility] [place] [facility] 3 3 [facility] 78737 ARTHRITIS ALBERTO RIT OUTPATIEN 3 3 CENTER T VISIT OF 10 [facility] [place] - 3 3 [facility] OUT[facility]IEN [facility] [place] - 3 3 [facility] T OFFICE 95439 ARTHRITIS ALBERTO RIT OUTPATIEN 3 3 CENTER T VISIT OF 25 [facility] [place] [facility] 3 3 [facility] UNIVERSIT - 3 3 Y [facility] T OFFICE [id number] TARAS THOMPSON OUTPATIEN 3 3 MEDICAL JAM T VISIT SERV 40 [facility] [place] - 3 3 [facility] OUTPATIEN [facility] T EMERGENCY [id number] TARAS LANTIGUA DEPT 3 3 MEDICAL FAMILY DAY CARER VISIT SERV HIGH FOUNDATIO SEVERITY& THREAT [facility] UNIVERSIT - 3 3 Y INPATIENT HOSPITAL OFFICE 44004 TARAS GATES OUTPATIEN 3 3 MEDICAL [place] T VISIT SERV ANG 25 [facility] UNIVERSIT - 2 3 Y INPATIENT HOSPITAL EMERGENCY 80347 POPPY LOPEZ DEPT 2 2 EMERGENCY VENUS VISIT SERVICES HIGH SEVERITY& THREAT [facility] EMERGENCY 91641 POPPY SANTA DEPT 2 2 EMERGENCY VISIT SERVICES HIGH SEVERITY& THREAT [facility] [place] [id number] 2 N [facility] HOSPITA OFFICE 97615 CULBERTSO CULBERTSO OUTPATIEN 2 2 N KALYAN N KALYAN T VISIT 15 MINUTES OFFICE 68909 CULBERTSO CULBERTSO OUTPATIEN 1 1 N KALYAN N KALYAN T VISIT 15 [facility] UNIVERSIT - 1 1 Y [facility] UNIVERSIT - 1 1 Y [facility] UNIVERSIT - 0 0 Y [facility] OFFICE 58952 CULBERTSO CULBERTSO OUTPATIEN 0 0 N KALYAN N KALYAN T VISIT 15 MINUTES OFFICE 10006 TARAS MARTINEZ OUTPATIEN 0 0 MEDICAL [place] T VISIT SERV 15 [facility] [place] - 0 0 [facility] OUTPATIEN [facility] T EMERGENCY 27586 POPPY MORRISSEY DEPT 0 0 EMERGENCY III [facility] HIGH SEVERITY& THREAT [facility] EMERGENCY 08033 [place] 0 0 [facility] DEPARTMEN INC T VISIT MODERATE SEVERITY OFFICE 15490 TARAS MARTINEZ OUTPATIEN 0 0 MEDICAL [place] T VISIT SERV 15 [facility] [place] - 0 0 [facility] OUTPATIEN INC T EMERGENCY 93060 [place] 0 0 [facility] DEPARTMEN INC T VISIT LOW/MODER SEVERITY OFFICE 32470 CULBERTSO CULBERTSO OUTPATIEN 9 9 N, GEREMIAS DOUGHERTY VISIT 15 MINUTES [facility]OSP[facility] - 9 9 N [facility] HOSPITAL OFFICE 89129 CULBERTSO CULBERTSO OUTPATIEN 9 9 N, GEREMIAS DOUGHERTY VISIT 15 MINUTES OFFICE 16399 CULBERTSO CULBERTSO OUTPATIEN 9 9 N, GEREMIAS DOUGHERTY VISIT 25 MINUTES OFFICE 36795 CULBERTSO CULBERTSO OUTPATIEN 9 9 NGEREMIAS ROBERT T VISIT 15 MINUTES HOSPITAL UNIVERSIT - 9 9 Y [facility] UNIVERSIT - 9 9 Y [facility] OFFICE 50549 KAM ENCARNACION 9 9 MEDICAL TONO J ION SERV NEW/ESTAB FOUNDATIO PATIENT 40 MIN OFFICE 87573 [place] [facility] 9 9 [facility] NESHA CLEMONS T VISIT ORTHOPAED A 15 IC MINUTES [facility] UNIVERSIT - 9 9 Y [facility] UNIVERSIT - 8 8 Y [facility] OFFICE 01831 [facility] N, GEREMIAS DOUGHERTY VISIT 15 MINUTES [facility] 8 8 N [facility] HOSPITAL OFFICE 92576 MAKSIM MAKSIM [facility] 8 8 IINESHA II, GLEN T VISIT A A 15 MINUTES
--- OUTSIDE RECORDS SUMMARY | 2016-09-26 10:40 | External Medical Summary Rpt ---
Author Author , Organization [employer] Address Unknown Phone Unavailable Care Team Providers Care Supervisor Telephone Answering Service Name Role Phone A Candice COLBERT MD PSC, A Unavailable Unavailable Candice COLEBRT MD PSC MARTIN PATEL, MARTIN Unavailable Unavailable REEMA ELDER, Unavailable Unavailable REEMA BOOTH [facility] Unavailable Un[facility] Unavailable [place] [place] [facility]YOO[facility] AND, AYOOB AND Unavailable Unavailable BENSADOUN NUVIA, Unavailable Unavailable BENSADOUN NUVIA BESSON KAMALA, BESSON Unavailable Unavailable KAMALA SOHEILA DEENA, Unavailable Unavailable SOHEILA DEENA [facility] Unavailable Unavailable SERVICE, [facility] Unavailable Unavailable SERVICE, [facility] CAMILLE KET, CAMILLE KET Unavailable Unavailable GRZEGORZ BIZTALK DEVELOPER, GRZEGORZ Unavailable Unavailable BIZTALK DEVELOPER TITI JAG, TITI Unavailable Unavailable JAG [facility], Unavailable Unavailable [facility] COZ YATACO ANG, COZ Unavailable Unavailable YATACO ANG DAWNA TIERRA, Unavailable Unavailable DAWNA TIERRA LAVONNE KALYAN, Unavailable Unavailable LAVONNE KALYAN LAVONNE KALYAN, Unavailable Unavailable LAVONNE KALYAN LAVONNE, GEREMIAS, Unavailable Unavailable LAVONNE, GEREMIAS DISANTIS SIDDHARTHA, Unavailable Unavailable DISANTIS SIDDHARTHA [facility], [facility] Unavailable Unavailable JERRI ESPERNAZA, JERRI Unavailable Unavailable ESPERANZA JERRI ESPERANZA, JERRI Unavailable Unavailable ESPERANZA ALBERTO RIT, ALBERTO RIT Unavailable Unavailable HU NAN, HU Unavailable Unavailable NAN JESSICA VENUS, JESSICA Unavailable Unavailable [facility] Unavailable Unavailable HOSPITA, [facility] CH[facility], [facility] Unavailable [facility]available [facility] Unavailable Unavailable INC, [facility] INC [facility] Unavailable [facility]available HOSPITAL P, [facility] P DUBOIS KAMALA, DUBOIS KAMALA Unavailable Unavailable RENA, MARIXA G, RENA, Unavailable Unavailable MARIXA G [facility] HARLEY OSCAR, Unavailable Unavailable [...] HOLDINGS, [facility], Unavailable Unavailable [facility] JUAN KAMALA, Unavailable Unavailable JUAN KAMALA TONO MARTINEZ, Unavailable Unavailable TONO MARTINEZ HAYWOOD MARION, HAYWOOD Unavailable Unavailable MARION JESICA JAM, JESICA JAM Unavailable Unavailable TIAGO JR DWI, TIAGO Unavailable Unavailable JR DWI LUKINS TIERRA, LUKINS Unavailable Unavailable TIERRA [facility] Unavailable Unavailable SERVICES, [facility] MAKSIM II, NESHA A, Unavailable [...] SADIE GIRARD PRE, SHAJI Unavailable Unavailable PRE [facility], Unavailable Unavailable [facility] Unavailable Unavailable [facility] [place] [facility] GERALD MINA, Unavailable Unavailable ALEJO STRICKLAND, [...] SERV PULMONARY FOUNDATIO FIBROSIS 7245 UNSPECIFIED 03-19-2013 [facility] 83080 OTHER 03-19-2013 [facility] [place] [address] OBSTRUCTIVE 03-10-2013 [facility] MEDICAL EQUIPME 54870 OTHER 03-07-2013 [facility] LUNG NOT INC ELSEWHERE CLASSIFIED 7242 LUMBAGO 03-06-2013 [facility] INC V571 OTHER 03-06-2013 [facility] THERAPY INC 40719 OTHER 03-01-2013 [place] [facility] CONDITIONS SERV OF BRAIN [facility]AT[facility] 7140 RHEUMATOID 03-01-2013 [place] [facility] ARTHRITIS SERV [facility] 7840 HEADACHE 03-01-2013 [facility] 52188 DIARRHEA 03-01-2013 [facility] 7930 NONSPECIFIC 03-01-2013 [facility] AB[facility] FNDNG SERV RAD & OTH FOUNDATIO EXM SKULL & HEAD E8889 UNSPECIFIED 03-01-2013 [place] [facility] FALL [facility] 05668 OTHER 02-28-2013 [place] [facility] CHRONIC [facility] PAIN F[facility] 4019 UNSPECIFIED 02-28-2013 [place] [facility] ESSENTIAL SERV HYPERTENSIO FOUNDATIO N 30354 FEVER 02-28-2013 [place] [facility] UNSPECIFIED SERV F[facility] 47357 OTHER 02-28-2013 [place] [facility] NONSPECIFIC SERV ABNORMAL FOUNDATIO FINDING OF LUNG FIELD 412 OLD 02-27-2013 [facility] INFARCTION 57907 CORONARY 02-27-2013 [facility] OSIS UTE CORONARY ARTERY 4829 UNSPECIFIED 02-27-2013 [facility] PNEUMONIA SERVICE 5184 UNSPECIFIED 02-27-2013 [place] [facility] ACUTE [facility] EDEMA OF FOUNDATIO LUNG 5849 ACUTE 02-27-2013 [facility] FAILURE UNSPECIFIED 60635 RHEUMATOID 02-27-2013 [facility] V4361 SHOULDER 02-27-2013 [facility] SERV REPLACEMENT FOUNDAT[facility] BY OTHER MEANS V462 DEPENDENCE 02-27-2013 [facility]OSPITAL FOR SUPPLEMENTA L OXYGEN 03813 OBSTRUCTIVE 02-26-2013 [facility] P WITH EXACERBATIO N V5869 LONG-TERM 02-20-2013 [facility] OF USE OF [place] OTHER MEDICATIONS V6751 F/U EXAM 02-20-2013 [facility] FOLLOW CMPL [place] [facility] W/HIGH-RISK MED NEC 69473 COR 02-12-2013 [facility] UNSPEC TYPE VESSEL UTE/RAUL T 4940 BRONCHIECTA 01-31-2013 [place] [facility] SIS WITHOUT SERV ACUTE FOUNDATIO EXACERBATIO N 54411 IDIOPATHIC 01-31-2013 [facility] 7856 ENLARGEMENT 01-31-2013 [place] [facility] OF LYMPH SERV NODES FOUNDATIO 68501 SHORTNESS 01-31-2013 [place] [facility] OF BREATH SERV F[facility] 23323 OTHER 01-31-2013 [facility] RESPIRATORY AMBULANCE SERVICE COMPLICATIO NS 0529 VARICELLA 01-06-2013 A Candice PINZON MD PSC MENTION OF COMPLICATIO N 7862 COUGH 01-06-2013 A Candice COLBERT MD PSC 4660 ACUTE 11-06-2012 A Candice COLBERT BRONCHITIS PSC V5812 ENCOUNTER 09-25-2012 [facility] ANTINEOPLAS [place] TIC IMMUNOTHERA PY 2859 UNSPECIFIED 08-31-2012 [facility] 4841 PNEUMONIA 08-31-2012 [place] [facility] IN [facility] CYTOMEGALIC FOUNDATIO INCLUSION DISEASE 5168 OTH SPEC 08-31-2012 [place] [facility] ALVEOL&DEONNA SERV ETOALVEOL FOUNDATIO PNEUMONOPAT HIES 14399 NAUSEA WITH 08-02-2012 [place] [facility] VOMITING SERV [facility] V1209 PERSONAL HX 08-02-2012 [facility] OTH [facility] INFECTIOUS& FOUNDATIO PARASITIC DISEASE 2724 OTHER AND 07-31-2012 [facility] HYPERLIPIDE ALEKSANDAR 5589 OTH&UNSPEC 07-31-2012 [place] [facility] NONINFECTIO SERV US FOUNDATIO GASTROENTER ITIS&COLITI S 53283 VOMITING 07-31-2012 [facility] INTER 26787 ABDOMINAL 07-31-2012 [place] [facility] PAIN, SERV EPIGASTRIC FOUNDAT[facility] 38025 SYSTEMIC 07-31-2012 [facility] Y RESPONSE SYNDROME UNSPEC V1269 PERSONAL 07-31-2012 [place] [facility] HISTORY SERV OTHER FOUNDATIO DISEASES RESPIRATORY SYS 514 PULMONARY 07-03-2012 [facility] [place] [facility] AND HYPOSTASIS 7295 PAIN IN 07-03-2012 JERRI ESPERANZA SOFT TISSUES OF LIMB 7823 EDEMA 07-03-2012 JERRI ESPERANZA 5119 UNSPECIFIED 07-01-2012 [facility] [place] PLEURAL [facility] EFFUSION 95061 OTHER 06-20-2012 [place] [facility] DISEASES OF SERV NASAL FOUNDATIO CAVITY AND SINUSES 5121 IATROGENIC 06-16-2012 [place] [facility] PNEUMOTHROA SERV X F[facility]AT[facility] 27480 ACUTE AND 06-16-2012 [facility] CHRONIC [facility] RESPIRATORY FOUNDATIO FAILURE 77916 SEPTIC 06-16-2012 [place] [facility] SHOCK SERV [facility] 0785 CYTOMEGALOV 06-15-2012 [facility] DISEASE [facility] 27149 CHEST PAIN 06-15-2012 [facility] U[facility]PECIFIED CARE CTR OF THE B 7850 UNSPECIFIED 06-11-2012 [place] [facility] SERV TACHYCARDIA F[facility]AT[facility] 4279 UNSPECIFIED 05-17-2012 [place] [facility] CARDIAC SERV DYSRHYTHMIA FOUNDATIO 06882 ACUTE 05-17-2012 [place] [facility] RESP[place]AT[place] SERV FAILURE FOUNDATIO 49121 OTHER 04-24-2012 [facility] BRUNILDA SEPTICEMIA 1124 CANDIDIASIS 04-24-2012 [facility] 5070 PNEUMONITIS 04-24-2012 [facility] INHALATION OF FOOD OR VOMITUS 5100 EMPYEMA 04-24-2012 [facility] 5183 PULMONARY 04-22-2012 [facility] A IMAGING ASS 87656 REFLUX 08-03-2011 L[facility] ESOPHAGITIS KALYAN 53565 OTHER 08-03-2011 [facility] SYMPTOMS KALYAN INVOLVING DIGESTIVE SYSTEM OTHER 490 BRONCHITIS 07-13-2010 L[facility] NOT KALYAN SPECIFIED ACUTE OR CHRONIC 50236 ASTHMA, 07-13-2010 [facility] UNSPECIFIED KALYAN , UNSPECIFIED STATUS 55798 PAIN IN 07-08-2010 [place] [facility] ANKLE [facility] FOOT 35538 DISORDER OF 07-08-2010 [facility] BONE AND SERV CARTILAGE FOUNDATIO UNSPECIFIED V454 ARTHRODESIS 07-08-2010 [facility] STATUS [facility] V5489 OTHER 07-08-2010 [facility] AFTER[facility]ARE V5409 OTH 06-17-2010 [facility] SERV INVOLVING FOUNDATIO INTERNAL FIXATION DEVICE V6700 FOLLOW-UP 06-01-2010 [facility] EXAMINATION SERV FOLLOWING FOUNDATIO UNSPEC SURGERY 07190 PRIMARY 05-12-2010 [facility] LOCALIZED SERV OSTEOARTHRO FOUNDATIO SIS ANKLE AND FOOT 39813 PAIN IN 05-12-2010 [facility], SERV LOWER LEG FOUNDATIO V0481 NEED 05-12-2010 [facility] VACCINATION &INOCULATIO N FLU V5849 OTHER 05-12-2010 [facility] SPECIFIED SERV AFTERCARE FOUNDATIO FOLLOWING SURGERY 4659 ACUTE URIS 04-17-2010 LAVONNE OF KALYAN UNSPECIFIED SITE 75611 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 [facility] RHEUMATISM SERV ANKLE AND FOUNDATIO FOOT 39773 PAIN IN 04-02-2010 [facility], AMERIC UPPER ARM HOLDING 06266 OBST 03-12-2010 [facility] P W/ACUTE BRONCHITIS 43765 PAINFUL 03-12-2010 [facility] 17372 UNSPECIFIED 05-20-2009 GEREMIAS BANERJEE ARTHROPATHY SITE UNSPECIFIED 4011 ESSENTIAL 05-09-2009 [facility] N, BENIGN PSC 50927 OTHER CHEST 05-09-2009 [facility] PAIN GEREMIAS V7651 SPECIAL 05-09-2009 [facility] SCREENING GEREMIAS FOR MALIGNANT NEOPLASMS COLON 7808 GENERALIZED 05-05-2009 GEREMIAS BANERJEE HYPERHIDROS IS 5960 BLADDER 03-18-2009 [facility] [place] INC OBSTRUCTION 2720 PURE 03-17-2009 [facility] HYPERCHOLES GEREMIAS TEROLEMIA 26575 ESOPHAGEAL 03-17-2009 [facility] REFLUX GEREMIAS 46795 PRIMARY 03-17-2009 [facility] LOCALIZED GEREMIAS OSTEOARTHRO SIS OTH SPEC SITES 12490 OT MEC 11-26-2008 [facility] INT ORTHOPEDIC DEVC IMPL&GFT 99464 OT COMPS 11-26-2008 [place] [facility] DUE OTH SERV INTRL FOUNDATIO ORTHOPED DEVICE IMPL&GFT 7271 BUNION 11-11-2008 [facility] 85086 NONSPECIFIC 11-11-2008 [facility] ELECTROCARD IOGRAM V4589 OTHER 11-11-2008 [facility] L STATUS OTHER 05193 EFFUSION OF 09-19-2008 [facility]THOP[facility]IC SURGEONS PSC 98779 VILLONODULA 09-19-2008 [facility] SYNOVITIS, ORTHOPAEDIC LOWER LEG SURGEONS PSC 5185 PULMONARY 05-16-2008 [facility]FFIC[facility]GENCY CY FOLLOW SERVICES [facility] SURGERY 53258 UNSPECIFIED 05-15-2008 [place] [facility] [place] [address] EXTRINSIC 11-02-2007 [facility] DOSE ASTHMA, PHARMACY UNSPECIFIED 59934 OSTEOARTHRO 07-13-2007 MAKSIM II, SIS UNSPEC NESHA A WHETHER GEN/LOC ANK&FOOT 81388 TENOSYNOVIT 07-13-2007 MAKSIM II, IS OF FOOT NESHA A AND ANKLE Procedures Procedure DOS Code Location Performer Comment O2 CONC 1 E1390 AYLIN VIERA DEL PORT 4 HOME HOME 85%/>02 MEDICAL MEDICAL CONC AT EQUIPME EQUIPME PRSC FLW RATE PRTBLE E0431 AYLIN VIERA GASEOUS 4 HOME HOME O2 SYS MEDICAL MEDICAL RENT; EQUIPME EQUIPME FLWMTR HUMIDFR&M ASK PULMONARY 17489 [facility] STRESS 3 Y Y TESTING [facility] SPMTRY 63981 [place] B[facility] W/VC 3 MEDICAL NUVIA EXPIRATOR [...] COMPRESSO MEDICAL MEDICAL R EQUIPME EQUIPME THERAPEUT 09939 [place] [facility] IC PX 1/> 3 [facility] AREAS INC INC EACH 15 MIN EXERCISES E-STIM G0283 [place] [facility] 1/> AREAS 3 [facility]OS[facility] OTH THAN INC INC WND CARE PART TX PLAN E-STIM G0283 [place] [facility] 1/> AREAS 3 [facility] MEM [facility]OSP OTH THAN INC INC WND CARE PART TX PLAN THERAPEUT 27782 [facility] [facility] [place] PX 1/> 3 [facility]OS[facility] AREAS INC INC EACH 15 MIN EXERCISES APPLICATI 46479 [place] [facility] ON 3 [facility] MODALITY INC INC 1/> AREAS HOT/COLD PACKS CONTINUOU E0601 AYLIN VIERA S 3 HOME HOME POSITIVE MEDICAL MEDICAL AIRWAY EQUIPME EQUIPME PRESSURE DEVICE THERAPEUT 95641 [place] [facility] [place] PX 1/> 3 [facility]OS[facility] AREAS INC INC EACH 15 MIN EXERCISES E-STIM G0283 [place] [facility] 1/> AREAS 3 [facility] MEM [facility]OSP OTH THAN INC INC WND CARE PART TX PLAN CUL BACT 51899 [place] [facility] XCPT 3 [facility] URINE INC INC BLOOD/STO OL AEROBIC ISOL SPUTUM 65559 [facility] OBTAINING 3 [facility] SPEC INC INC AEROSOL INDUCED TX SPX SMR PRIM 20679 [place] [facility] SRC 3 [facility] GRAM/GIEM INC INC SA STAIN BCT FUNGI/LEONIDES L THERAPEUT 70594 [facility] [place] PX 1/> 3 [facility] HOS[facility]OS[facility] AREAS INC INC EACH 15 MIN EXERCISES E-STIM G0283 [facility] 1/> AREAS 3 [facility] HOSP OTH THAN INC INC WND CARE PART TX PLAN RADIOLOGI 50749 [place] KAMALA C EXAM 3 MEDICAL CHEST 2 SERV VIEWS FOUNDATIO FRONTAL&[place] [address] [place] ARINA MCCOY HEAD/BRAI 3 MEDICAL N W/O SERV CONTRAST FOUNDATIO MATERIAL SBSQ 85063 [facility] 3 MEDICAL PRE CARE/DAY SERV 25 FOUNDATIO MINUTES SBSQ 40003 [facility] 3 MEDICAL PRE CARE/DAY SERV 25 FOUNDATIO MINUTES RADIOLOGI 83432 [place] KAMAL[place] C EXAM 3 MEDICAL CHEST 2 SERV VIEWS FOUNDATIO FRONTAL&[place] [address] [facility] INFUSION 3 [facility] THERAPY INC INC PROPHYLAX [place] [address] [facility] INFUSION 3 [facility] THER INC INC PROPH ADDL SEQUENTIA L TO 1 HR AMB A0427 [facility] SERVICE 3 AMBULANCE AMBULANCE ALS SERVICE SERVICE EMERGENCY TRANSPORT LEVEL 1 RADIOLOGI 66289 [place] RUSTAM 3 MEDICAL EXAMINATI SERV ON CHEST FOUNDATIO [place] FRONTAL INITIAL 31166 [facility] 3 MEDICAL PRE CARE/DAY SERV 70 FOUNDATIO MINUTES IAADI 71050 [facility] INFLUENZA 3 [facility] B VIRUS INC INC IAADI 37446 [place] [facility] INFFLUENZ 3 [facility] A A VIRUS INC INC CUL BACT 96135 [place] [facility] XCPT 3 [facility] URINE INC INC BLOOD/STO OL AEROBIC ISOL CUL BACT 93944 [place] [facility] AEROBIC 3 [facility] ADDL INC INC METHS DEFINITIV E EA ISOL SMR PRIM 95127 [place] [facility] SRC 3 [facility] GRAM/GIEM INC INC SA STAIN BCT FUNGI/LEONIDES L SUSCEPTIB 21487 [place] [facility] LTY STDY 3 [facility] ANTIMICRB INC [place] [address] [place] [facility] INFUSION 3 [facility] THERAPY/P INC INC ROPHYLAXI S /DX 1ST TO 1 HR GROUND A0425 [facility] MILEAGE 3 AMBULANCE AMBULANCE [place] [address] [place] [facility] TROPONIN 3 [facility] QUANTITAT INC INC COURTNEY BLOOD 42822 [place] [facility] COUNT 3 [facility] COMPLETE INC INC AUTO&AUTO DIFRNTL WBC CULTURE 76906 [place] [facility] BACTERIAL 3 [facility] BLOOD INC INC AEROBIC W/ID ISOLATES ECG 81207 [place] [facility] ROUTINE 3 [facility] ECG INC INC W/LEAST 12 LDS TRCG ONLY W/O I&R BASIC 28880 [place] [facility] METABOLIC 3 [facility] PANEL INC INC CALCIUM TOTAL CREATINE 28484 [place] [facility] KINASE MB 3 [facility] H[facility] FRACTION INC INC ONLY THERAPEUT 45002 [facility] [facility] IC PX 1/> 3 [facility] AREAS INC INC EACH 15 MIN EXERCISES PHYSICAL 72486 [place] [facility] THERAPY 3 [facility] EVALUATIO INC INC N RADIOLOGI 55676 [place] [facility] C 3 [facility] EXAMINATI INC INC ON CHEST [place] FRONTAL CRITICAL 08844 [facility] CARE 3 [facility] ILL/INJUR INC INC ED PATIENT INIT 30-74 MIN ECG 63029 [place] BECERR[facility] ROUTINE 3 [facility] W/LEAST P 12 LDS I&R ONLY CREATINE 09440 [place] [facility] KINASE 3 [facility] TOTAL INC INC E-STIM G0283 [place] [facility] 1/> AREAS 3 [facility] OTH THAN INC INC WND CARE PART TX PLAN BLOOD 60624 [place] [facility] GASES ANY 3 [facility] INC INC COMBINATI ON PH PCO2 PO2 CO2 HCO3 COLLECTIO 49438 [facility] N VENOUS 3 [facility] VENIPUNCT URE C-REACTIV 09953 [facility] E PROTEIN 3 [facility] COMPREHEN 20163 [facility] SIVE 3 [facility] METABOLIC [facility] HOLDINGS PANEL BLOOD 02666 [facility] COUNT 3 [place] [...] RENT; EQUIPME EQUIPME FLWMTR HUMIDFR&M ASK ARTERIAL 18980 [facility] P[facility]CTURE 3 [facility] BLOOD DX [facility] THORAX 29030 [facility] W/O 3 Y Y CONTRAST [facility] MATERIAL SPMTRY 08744 [place] W/VC 3 MEDICAL EXPIRATOR SERV Y RACHEL FOUNDATIO W/WO MXML VOL VNTJ PULMONARY 98837 [place] STRESS 3 [place]ICAL [place] [address] [place] DIFFUSING 3 MEDICAL CAPACITY SERV [place]AT[facility] PLETHYSMO 98587 [place] GRAPHY 3 MEDICAL MEDICAL LUNG SERV SERV VOLUMES FOUNDATIO FOUNDATIO W/WO AIRWAY RESIST GASES 78663 [facility] BLOOD PH 3 Y Y DIRECT [facility] ANSHU XCPT PULSE OXIMITRY CONTINUOU E0601 AYLIN VIERA S 3 HOME HOME POSITIVE MEDICAL MEDICAL AIRWAY EQUIPME EQUIPME PRESSURE DEVICE [facility] 40193 [place] SEETHARMR DISCHARGE 3 MEDICAL AJU HAZEL DAY SERV MANAGEMEN FOUNDATIO T 30 MIN/< RADIOLOGI 21378 [place] [facility] C 3 [facility] EXAMINATI INC INC ON CHEST [place] FRONTAL CUL BACT 62955 [place] [facility] AEROBIC 3 [facility] ADDL INC INC METHS DEFINITIV E EA ISOL CUL BACT 28617 [place] [facility] XCPT 3 [facility] URINE INC INC BLOOD/STO OL AEROBIC ISOL THER 68385 [place] [facility] PROPH/DX 3 [facility] NJX IV INC INC PUSH SINGLE/1S T SBST/[place] [address] [facility] ANGIOGRAP 3 MEDICAL CHEST SERV W/CONTRAS FOUNDATIO T/NONCONT RAST COMPREHEN 40563 [place] [facility] SIVE 3 [facility] METABOLIC INC INC PANEL CULTURE 63264 [place] [facility] BACTERIAL 3 [facility] BLOOD INC INC AEROBIC W/ID ISOLATES ECG 52088 [place] [facility] ROUTINE 3 [facility] ECG INC INC W/LEAST 12 LDS TRCG ONLY W/O I&R SUSCEPTIB 35419 [place] [facility] LTY STDY 3 [facility] ANTIMICRB INC INC IAL MICRO/AGA R DILUTJ SMR PRIM 76076 [place] [facility] SRC 3 [facility] GRAM/GIEM INC INC SA STAIN BCT FUNGI/LEONIDES L BLOOD 62545 [place] [facility] COUNT 3 [facility] COMPLETE INC INC AUTO&AUTO DIFRNTL WBC AMBULANCE A0429 [facility] SERVICE 3 AMBULANCE AMBULANCE BLS SERVICE SERVICE EMERGENCY TRANSPORT GROUND A0425 [facility] MILEAGE 3 AMBULANCE AMBULANCE PER SERVICE SERVICE STATUTE MILE PRESSURIZ 07830 [place] [facility] ED/NONPRE 3 [facility] SSURIZED INC INC INHALATIO N TREATMENT ECG 58023 [place] ORDOÑEZ JR ROUTINE 3 [facility] W/LEAST P 12 LDS I&R ONLY RADIOLOGI 97612 [facility] C EXAM 3 MEDICAL CHEST 2 SERV VIEWS FOUNDATIO FRONTAL&L ATERAL PHRM Q0513 YOUR YOUR DISPENSIN 3 PHARMACY PHARMACY G [facility] [employer] INHALATIO N RX; PER 30 DAYS [...] COMPRESSO MEDICAL MEDICAL R EQUIPME EQUIPME RADIOLOGI 95849 [place] [facility] C EXAM 3 [facility] CHEST 2 INC INC VIEWS FRONTAL&L ATERAL CONTINUOU E0601 AYLIN VIERA S 3 HOME HOME POSITIVE MEDICAL MEDICAL AIRWAY EQUIPME EQUIPME PRESSURE DEVICE 3D 91886 [facility] RENDERING 3 [facility] W/INTERP [place] [address] [place] [facility] HEAD/BRAI 3 [facility]OS[facility] N W/O INC INC CONTRAST MATERIAL BLOOD 99465 [facility] COUNT 3 [facility] COMPLETE INC INC AUTO&[place] [address] [place] [facility] TROPONIN 3 [facility] QUANTITAT INC INC COURTNEY CREATINE 68864 [facility] [facility] KINASE MB 3 [facility] FRACTION INC INC ONLY COMPREHEN 55070 [facility] SIVE 3 [facility] METABOLIC INC INC PANEL ECG 59403 [place] ROUTINE 3 [facility] ECG INC INC W/LEAST 12 LDS TRCG ONLY W/O I&R RHYTHM 22650 [place] [facility] ECG 1-3 3 [facility] LEADS INC INC TRACING ONLY W/O I&R CREATINE 92688 [place] KINASE [address] [facility] TOTAL INC INC ECG 67469 [place] ORDOÑEZ JR ROUTINE 3 [facility] [...] PER SESS TO 2 PER DAY BLOOD 90061 [facility] COUNT 3 [facility] AUTOMATED COMPREHEN 62392 [facility] SIVE 3 [facility] PANEL C-REACTIV 35658 [facility] E PROTEIN 3 [facility] COLLECTIO 40301 [facility] N VENOUS 3 [facility] VENIPUNCT URE PULM G0424 [facility] REHAB 3 [facility] INCL EXER INC INC 1 HR PER SESS TO 2 PER DAY PULM G0424 [facility] REHAB 3 [facility] INCL EXER INC INC 1 HR PER SESS TO 2 PER DAY NEBULIZER E0570 AYLIN VIREA WITH 3 HOME HOME COMPRESSO MEDICAL MEDICAL [...] PER SESS TO 2 PER DAY POLYSOM 03515 [facility] 6/>YRS 3 [facility] MEM [...] TO 2 PER DAY STANDARD K0001 AYLIN YOUNGCHAI 3 HOME HOME R MEDICAL MEDICAL EQUIPME EQUIPME GAS 42727 [place] [facility] DILUT/WAS 3 [facility] MEM [...] RENT; EQUIPME EQUIPME FLWMTR HUMIDFR&M ASK BRNCDILAT 01143 [place] [facility] RSPSE 3 [facility] SPMTRY INC INC PRE&POST- BRNCDILAT ADMN CYANOCOBA 06592 [facility] CLARISSE 3 [facility] B-12 RADIOLOGI 95703 [facility]ST [facility] VIEWS FRONTAL&L ATERAL IRON 37687 [facility] BINDING 3 Y [facility] [place] [address] [facility] FOLIC 3 Y Y ACID [facility] COMPREHEN 98221 [facility] SIVE 3 Y Y METABOLIC [facility] PANEL RHEUMATOI 20453 [facility] D FACTOR 3 Y Y QUANTITAT [facility] COURTNEY PREALBUMI 90202 [facility] N [facility] Y [facility] BLOOD 79719 [facility] COUNT 3 Y Y COMPLETE [facility] AUTO&AUTO DIFRNTL WBC ANTINUCLE 24941 [facility] LAB HEIDI AR 3 Y [facility] [place] FLUORESCE 21097 [facility] NT 3 Y Y NONNFCT [facility] AGT ANTB SCREEN EA ANTIBODY COLLECTIO 62751 [facility] N VENOUS 3 Y Y BLOOD [facility] VENIPUNCT URE STANDARD K0001 AYLIN VIERA WHEELCHAI [...] RENT; EQUIPME EQUIPME FLWMTR HUMIDFR&M ASK POLYSOM 44457 [place] 6/>YRS 3 [facility] SLEEP INC INC W/CPAP 4/> [facility] 18612 [facility] 3 MEDICAL JAG DAY SERV MANAGEMEN FOUNDATIO T 30 MIN/< SBSQ 48194 [facility] 3 MEDICAL JAG CARE/DAY SERV 25 FOUNDATIO MINUTES RADEX ABD 09600 [place] DISANTIS COMPL 3 MEDICAL SIDDHARTHA AQT ABD SERV W/S/E/D FOUNDATIO VIEWS 1 VIEW CH RADEX ABD 93727 [place] JESICA JAM COMPL 3 MEDICAL AQT ABD SERV W/S/E/D FOUNDATIO VIEWS 1 VIEW CH INITIAL 06813 [facility] 3 Y OF [place] CARE/DAY [place] [address] [place] [address] [place] SOHEILA ABDOMINAL 3 MEDICAL DEENA REAL [...] MEDICAL ADJUSTABL EQUIPME EQUIPME E/FIXED HEIGHT DUP-SCAN 91661 JERRI JERRI XTR VEINS 3 ESPERANZA ESPERANZA COMPLETE BILATERAL STUDY RADIOLOGI 46119 [facility] [place] KOSTELIC C EXAM 3 RADIOLOGY MONTSERRAT CHEST 2 VIEWS FRONTAL&L ATERAL RADIOLOGI 07067 [facility] [place] NOEL C EXAM 3 RADIOLOGY GODFREY CHEST 2 VIEWS FRONTAL&L ATERAL MRI BRAIN 97881 [place] LUKINS BRAIN 3 MEDICAL TIERRA STEM W/O SERV CONTRAST FOUNDATIO MATERIAL SBSQ 06826 [facility] 3 E CARE CARE/DAY CTR OF 15 THE B MINUTES [facility] [address]277 [place] HARLEY INCL 3 MEDICAL OSCAR FLUOR SERV GDNCE DX FOUNDATIO W/CELL WASHG SPX SBSQ 75543 [facility] 3 E CARE CARE/DAY CTR OF 25 THE B MINUTES CLOSED 3324 [facility] BIOPSY OF 3 Y Y [facility] VENOUS 3893 [facility] CATHETER [address] [facility] NOT ELSEWHERE CLASSIFIE D ECG 91978 TARAS NEVAREZ CHI ROUTINE 3 MEDICAL ECG SERV W/LEAST FOUNDATIO 12 LDS I&R ONLY ECG 08385 TARAS HU ROUTINE 3 MEDICAL NAN ECG SERV W/LEAST FOUNDATIO 12 LDS I&R ONLY CONTINUOU E0601 AYLIN VIERA S 2 HOME HOME POSITIVE MEDICAL MEDICAL AIRWAY EQUIPME EQUIPME PRESSURE DEVICE STANDARD K0001 AYLIN ABARCARELL WHEELCHAI 2 HOME HOME R MEDICAL MEDICAL EQUIPME EQUIPME THORACOSC 3320 [facility] LUNG 2 Y Y [facility] 63211 TARAS NEVAREZ CHI ROUTINE 2 MEDICAL ECG SERV W/LEAST FOUNDATIO 12 LDS I&R ONLY ECG 94027 TARAS ROSENBERG ROUTINE 2 MEDICAL ECG SERV W/LEAST FOUNDATIO 12 LDS I&R ONLY ECG 51477 TARAS NEVAREZ CHI ROUTINE 2 MEDICAL ECG SERV W/LEAST FOUNDATIO 12 LDS I&R ONLY ECG 49552 TARAS HU ROUTINE 2 MEDICAL NAN ECG SERV W/LEAST FOUNDATIO 12 LDS I&R ONLY INSERTION 9604 [facility] OF 2 Y Y [facility] EAL TUBE CONT 9671 [facility] 2 Y Y [facility] < 96 CONSECUTI VE HOURS RADIOLOGI 54730 [place] DAWNA 2 MEDICAL TIERRA EXAMINATI IMAGING ON CHEST ASS SINGLE VIEW FRONTAL RADIOLOGI 93832 [facility] 2 MEDICAL TIERRA EXAMINATI IMAGING ON [...] IPRATROPI UM BROM TO 0.5 MG ECG 72401 POPPY JESSICA ROUTINE 2 EMERGENCY VENUS ECG SERVICES W/LEAST 12 LDS I&R ONLY RADIOLOGI 88131 YAZ TONEY C EXAM 2 MEDICAL TIERRA CHEST 2 IMAGING VIEWS ASS FRONTAL&L ATERAL BLOOD 46188 [facility] OCCULT 2 N N PEROXIDAS COMMUNITY COMMUNITY E ACTV HOSPITA HOSPITA QUAL FECES 1-3 SPEC SMR PRIM 95887 [facility] SRC 2 N N GRAM/GIEM COMMUNITY COMMUNITY SA STAIN HOSPITA HOSPITA BCT FUNGI/LEONIDES L OVA&CHAD 04319 [facility] ITES 2 N N DIRECT COMMUNITY COMMUNITY SMEARS HOSPITA HOSPITA CONCENTRA TION & ID SMR PRIM 23733 [facility] SRC CPLX 2 N N SPEC COMMUNITY COMMUNITY STAIN HOSPITA HOSPITA OVA&CHAD ITS BLOOD 19007 CULBERTSO CULBERTSO OCCULT 2 N KALYAN N KALYAN PEROXIDAS E ACTV QUAL FECES 1 DETER COLLECTIO 53576 LAB HE[facility]I LAB HEIDI N VENOUS 2 AMERIC AMERIC BLOOD HOLDING HOLDING VENIPUNCT URE C-REACTIV 16363 LAB [facility]I LAB HEIDI E PROTEIN 2 AMERIC AMERIC HOLDING HOLDING COMPREHEN 85498 [facility] LAB HEIDI SIVE 2 AMERIC AMERIC METABOLIC HOLDING HOLDING PANEL BLOOD 65709 [facility] LAB HEIDI COUNT 2 AMERIC AMERIC COMPLETE HOLDING HOLDING AUTOMATED BLOOD 37906 LAB [facility] LAB HEIDI COUNT 1 AMERIC AMERIC COMPLETE HOLDING HOLDING AUTOMATED COMPREHEN 55202 LAB HE[facility]I LAB HEIDI SIVE 1 AMERIC AMERIC METABOLIC HOLDING HOLDING PANEL C-REACTIV 88120 LAB HE[facility]I LAB HEIDI E PROTEIN 1 AMERIC AMERIC HOLDING HOLDING COLLECTIO 30821 LAB HE[facility] LAB HEIDI N VENOUS 1 AMERIC AMERIC BLOOD HOLDING HOLDING VENIPUNCT URE RADEX 95752 [facility] ANKLE 1 Y [facility]OSPITAL MINIMUM 3 VIEWS WALKING L4360 [facility] BOOT 1 PNEUMATC &/ VACUUM PREFAB CUSTM FIT LIPID 45062 [facility] OF PANEL 1 [facility] INC COLLECTIO 26654 [facility] N VENOUS 1 [facility] BLOOD VENIPUNCT URE TRANSFERA 65445 [facility] SE 1 [facility] INC ASPARTATE AMINO AST SGOT APPLICATI 43270 [place] TARAS ON SHORT 1 MEDICAL MEDICAL LEG CAST SERV SERV WALKING/A FOUNDATIO FOUNDATIO MBULATORY CAST Q4038 TARAS MARTINEZ SUPPLIES 1 MEDICAL KAMALA SHORT LEG SERV CAST FOUNDATIO ADULT FIBERGLAS S RADIOLOGI 58835 [facility] C 1 Y Y [facility]I [facility]ICAL CENTER ON FOOT 2 VIEWS CAST Q4038 TARAS MARTINEZ SUPPLIES 1 MEDICAL KAMALA SHORT LEG SERV CAST FOUNDATIO ADULT FIBERGLAS S APPLICATI 91021 [place] TARAS ON SHORT 1 MEDICAL MEDICAL LEG CAST SERV SERV BELOW FOUNDATIO [facility]ATIO [facility] G0378 [facility] OBSERVATI 0 Y Y ON HOSPITAL HOSPITAL SERVICE PER HOUR PHYSICAL 45373 [facility] THERAPY 0 Y Y EVALUATIO [facility] N [address] [place] GERALD GUIDANCE 0 MEDICAL JUS NEEDLE SERV PLACEMENT FOUNDATIO IMG S&I BONE 74409 [facility] GRAFT ANY 0 Y Y DONOR HOSPITAL HOSPITAL AREA MAJOR/LAR GE FLUOROSCO 00421 [facility] PY SPX >1 0 Y Y [facility] PHYS/QHP TIME INJECTION 98977 [place] JUDITHINSCOTT 0 MEDICAL JUS ANESTHETI SERV C AGENT FOUNDATIO SCIATIC NRV SINGLE INJECTION 60278 VT JUDITHINSCOTT 0 MEDICAL JUS ANESTHETI SERV C AGENT FOUNDATIO FEMORAL NERVE SINGLE ANESTHESI 03318 VT GERALD A ON BONY 0 MEDICAL JUS PELVIS SERV FOUNDATIO ARTHRODES 05264 [facility] 0 [facility] SMR PRIM 14072 LAB [facility]I SRC 0 AMERIC AMERIC GRAM/GIEM HOLDING HOLDING SA STAIN BCT FUNGI/LEONIDES L CUL BACT 48612 LAB [facility]I LAB HEIDI XCPT 0 AMERIC AMERIC URINE HOLDING HOLDING BLOOD/STO OL AEROBIC ISOL CULTURE 82883 LAB HE[facility]I LAB HEIDI BACTERIAL 0 AMERIC AMERIC ANY HOLDING HOLDING SOURCE ANAEROBIC ISO&ID THER 31657 [place] PROPH/DX 0 [facility] NJX IV INC INC PUSH SINGLE/1S T SBST/DRUG RADIOLOGI 78218 YAZ LOVECHER C 0 MEDICAL TIERRA EXAMINATI IMAGING ON CHEST ASS SINGLE VIEW FRONTAL ECG 18427 [place] COLEMAN ROUTINE 0 [facility] ECG INC INC W/LEAST 12 LDS TRCG ONLY W/O I&R CREATINE 80614 [place] KINASE 0 [facility] TOTAL INC INC CREATINE 22822 [place] COLE[place] KINASE MB 0 [facility] FRACTION INC INC ONLY BASIC 73263 [place] METABOLIC 0 [facility] PANEL INC INC CALCIUM TOTAL PRESSURIZ 14311 [place] ED/NONPRE 0 [facility] SSURIZED INC [place] [address] [place] COLMEAN TROPONIN 0 [facility] QUANTITAT INC INC COURTNEY BLOOD 21506 [place] COUNT 0 [facility] COMPLETE INC INC AUTO&AUTO DIFRNTL WBC ECG 00303 POPPY MORRISSEY ROUTINE 0 EMERGENCY III TRISTA ECG SERVICES W/LEAST 12 LDS I&R ONLY DUP-SCAN 94540 [place] XTR VEINS 0 [facility] INC INC UNILATERA L/LIMITED STUDY CT LOWER 90305 [place] EXTREMITY 0 [facility] W/O INC INC CONTRAST MATERIAL 3D 67941 [place] RENDERING 0 [facility] INC INC W/INTERP& POSTPROC DIFF WORK STATION INJECTION J1040 DIMITRIO CULBERTSO 9 N, GEREMIAS DOUGHERTY METHYLPRE DNISOLONE ACETATE 80 MG BLOOD 85058 DIMITRIO CULBERTSO OCCULT 9 N, GERMEIAS DOUGHERTY PEROXIDAS E ACTV QUAL FECES 1 DETER MYOCRD 94062 [facility] 9 N N [facility] QUAL/RENEE STD MYOCRD 65261 [facility]G [facility] N N [facility] S[facility] STD TECHNETIU A9500 [facility] M TC-99M 9 N N [facility] DX PER HOSPITAL HOSPITAL STUDY DOSE CV STRS 69271 MON[facility] ANDERSON TST 9 N, GEREMIAS DOUGHERTY&/OR RX CONT ECG W/O I&R CV STRS 39462 [facility] TST 9 N N XERS&/OR [facility] RX CONT [facility] ECG TRCG ONLY CV STRS 85733 MONICA ANDERSON TST 9 N, GEREMIAS DOUGHERTY&/OR RX CONT ECG I&R ONLY MYOCRD 89849 [facility] PRFUJ STD 9 N N EJEC FXJ [facility] [place] [address] [facility] IRON 9 [facility] COLLECTIO 52384 [facility] N VENOUS 9 [facility] BLOOD VENIPUNCT URE IRON 14843 [facility] BINDING 9 [facility] CAPACITY COLLECTIO 16675 [facility] N VENOUS 9 [facility] BLOOD VENIPUNCT URE BLOOD 24268 [facility] COUNT 9 [facility] COMPLETE AUTO&AUTO DIFRNTL WBC INFLUENZA G9141 MONICA ANDERSON A H1N1 9 N, GEREMIAS DOUGHERTY IMMUNIZAT ION ADMINISTR ATION REPR/SRVC K0739 ALLIED ALLIED DME NOT 9 HOME HOME O2 RQR MEDICAL, MEDICAL, TECH INC. INC. CMPNT PER 15 MINS PWR E2365 ALLIED ALLIED WHLCHAIR 9 HOME HOME ACSS U-1 MEDICAL, MEDICAL, SEALED INC. INC. LEAD ACID BATTRY EA SUSCEPTIB 56458 LAB [facility]I [facility] HE[facility]I LTY STDY 9 AMERIC AMERIC ANTIMICRB HOLDING HOLDING IAL MICRO/AGA R DILUTJ SMR PRIM 87166 [facility] SRC 9 AMERIC AMERIC GRAM/GIEM HOLDING HOLDING SA STAIN BCT FUNGI/LEONIDES L CUL BACT 48257 [facility] LAB HEIDI XCPT 9 AMERIC AMERIC URINE HOLDING HOLDING BLOOD/STO OL AEROBIC ISOL CULTURE 40946 LAB [facility] LAB HEIDI BACTERIAL 9 AMERIC AMERIC ANY HOLDING HOLDING SOURCE ANAEROBIC ISO&[place] [address] [facility] PROSTATE 9 [facility] SPECIFIC ANTIGEN TOTAL COLLECTIO 08814 [facility] N VENOUS 9 [facility] BLOOD VENIPUNCT URE COMPREHEN 65034 [facility] SIVE 9 [facility] METABOLIC PANEL LIPID 98206 [facility] PANEL 9 [facility] INJECTION J0690 [facility] 9 [facility] SODIUM 500 MG INJECTION J2270 [facility] MORPHINE 9 Y [facility] UP TO 10 MG SMR PRIM 77606 [facility] SRC 9 Y Y GRAM/GIEM [facility] SA STAIN BCT FUNGI/LEONIDES L INJECTION J2175 [facility] 9 Y Y MEPERIDIN [facility] E HCL PER 100 MG RINGERS J7120 [facility] LACTATE 9 Y Y [facility] UP TO 1000 CC CUL BACT 95261 [facility] XCPT 9 Y Y URINE [facility] BLOOD/STO OL AEROBIC ISOL FLUOROSCO 27878 [facility] PY SPX >1 9 Y [facility] PHYS/QHP TIME LEVEL I [address] [facility] SURG 9 Y Y PATHOLOGY HOSPITAL HOSPITAL GROSS EXAMINATI ON ONLY REMOVAL 60894 [facility] IMPLANT 9 Y Y [facility] INJECTION J3010 [facility] FENTANYL 9 Y [facility] 0.1 MG COLLECTIO 29225 [facility] N VENOUS 9 Y Y BLOOD HOSPITAL HOSPITAL VENIPUNCT URE RADEX 09620 [facility] FOOT 9 Y [facility] MINIMUM 3 VIEWS BLOOD 22751 [facility] COUNT 9 Y [facility] AUTOMATED BASIC 34373 [facility] METABOLIC 9 Y Y PANEL [facility] CALCIUM TOTAL ECG 04094 [facility] ROUTINE 9 Y Y ECG [facility] W/LEAST 12 LDS TRCG ONLY W/O I&R ECG 34015 [place] RENA, ROUTINE 9 MEDICAL MARIXA G ECG SERV W/LEAST FOUNDATIO 12 LDS I&R ONLY SMR PRIM 36308 [facility] SRC 9 Y Y GRAM/GIEM [facility] SA STAIN BCT FUNGI/LEONIDES L CELL 94021 [facility] COUNT 9 Y Y MISC BODY [facility] FLUIDS W/DIFFERE NTIAL COUNT COLLECTIO 99564 [facility] N VENOUS 9 Y Y BLOOD [facility] VENIPUNCT URE CUL BACT 60316 [facility] XCPT 9 Y Y URINE [facility] BLOOD/STO OL AEROBIC ISOL ARTHROCEN 93886 [facility] MAKSIM TESIS 9 LTH II, NESHA [...] INC. INC. LEAD ACID BATTRY EA SBSQ 08649 [facility] 8 EMERGENCY N, CARE/DAY SERVICES TADARRO 25 MINUTES ASSOCIATE S LEVEL III 05298 [place] ANN, SURG 8 MEDICAL TIM E PATHOLOGY SERV FOUNDATIO GROSS&VENUS ROSCOPIC EXAM ANESTH 31290 [facility] EMMY DIAGNOSPIERCE 8 [facility] REEMA Harvey ANESTHESI ARTHROSCO A PSC PIC PROC KNEE JOINT INITIAL 26717 [facility] IN[facility]IENT 8 EMERGENCY N, CONSULT SERVICES TADARRO NEW/ESTAB PT 110 ASSOCIATE MIN S COLONOSCO 51120 [facility] [place], PY FLX DX 8 [place] RICHY G W/COLLJ GASTROENT SPEC WHEN PFRMD ANES 30438 TARAS BOSCH, LOWER 8 ANESTHESI JENNIFER Vieira INTESTINE A GROUP PSC ENDOSCOPY DISTAL DUODENUM CUL BACT 02365 [facility] XCPT 8 Y Y [facility]INE [facility] BLOOD/STO OL AEROBIC ISOL CELL 16351 [facility] COUNT 8 Y Y MISC BODY [facility] FLUIDS W/DIFFERE NTIAL COUNT SMR PRIM 87579 [facility] SRC 8 Y Y GRAM/[facility]EM [facility] SA STAIN BCT FUNGI/LEONIDES L ALBUTEROL [...] NONFILTR PHARMACY PHARMACY PNEUMATIC NEBULIZER DISPBL DUP-SCAN 91291 [facility] LXTR 8 N N ART/ARTL [facility] COMPL BI STUDY PHRM Q0513 PULMO PULMO [...] NONFILTR PHARMACY PHARMACY PNEUMAT NEBULIZR DISPBL RADIOLOGI 97033 MAKSIM MAKSIM C 8 II, NESHA II, NESHA EXAMINATI A A ON KNEE 1/2 VIEWS RADIOLOGI 55222 MAKSIM MAKSIM C EXAM 8 II, NESHA II, NESHA KNEE A A COMPLETE 4/MORE VIEWS PHR Q0513 PULMO PULMO DISPENSIN 8 DOSE DOSE G FEE PHARMACY PHARMACY INHALATIO N RX; PER 30 DAYS ALBUTEROL J7620 PULMO PULMO TO 2.5 8 DOSE DOSE MG & PHARMACY PHARMACY IPRATROPI UM BROM TO 0.5 MG Encounters Encounter Start End Date Code Location [facility] 3 3 Y [facility] [place] 3 [facility] [place] [facility] 3 3 [facility] 00529 TARAS SALAZAR DEPT 3 3 MEDICAL JORGE VISIT SERV HIGH FOUNDATIO SEVERITY& THREAT [facility] UNIVERSIT - 3 3 Y [facility] [place] - 3 3 [facility] OFF[facility] 12596 ARTHRITIS ALBERTO [facility] 3 3 CENTER T VISIT OF 25 [facility] Y [facility] [place] - 3 3 [facility] 18931 POPPY SANTA DEPT 3 3 EMERGENCY VISIT SERVICES HIGH SEVERITY& THREAT [facility] [place] - 3 3 [facility] 95914 A Candice LAZCANO OUTPATIEN 3 3 FILEMON SHAH T VISIT [facility] 15 [facility] [place] - 3 3 [facility] OUTPATIEN [facility] EMERGENCY 63778 POPPY SNATA DEPT 3 3 EMERGENCY VISIT SERVICES HIGH SEVERITY& THREAT [facility] EMERGENCY 47095 [place] 3 3 [facility] T VISIT HIGH/URGE NT SEVERITY OFFICE 35092 ARTHRITIS ALBERTO RIT OUTPATIEN 3 3 CENTER T VISIT OF 25 [facility] OFFICE 64676 Avtar LAZCANO OUTPATILENNY 3 3 FILEMON SHAH T VISIT [facility] 15 [facility] [place] - 3 3 [facility] OFF[facility] 46760 ARTHRITIS ALBERTO RIT OUTPATIEN 3 3 CENTER T VISIT OF 10 [facility] [place] - 3 3 [facility] OUTPATIEN [facility] [place] - 3 3 [facility] T OFFICE 46637 ARTHRITIS ALBERTO RIT OUTPATIEN 3 3 CENTER T VISIT OF 25 [facility] [place] - 3 3 [facility] UN[facility]ERS[facility] - 3 3 Y [facility] T OFFICE 15100 TARAS THOMPSON OUTPATIEN 3 3 MEDICAL JAM T VISIT SERV 40 [facility] [place] - 3 3 [facility] OUTPATIEN [facility] T EMERGENCY 86898 TARAS LANTIGUA DEPT 3 3 MEDICAL BIZTALK DEVELOPER VISIT SERV HIGH FOUNDATIO SEVERITY& THREAT [facility] UNIVERSIT - 3 3 Y INPATIENT HOSPITAL OFFICE 26344 TARAS GATES OUTPATIEN 3 3 MEDICAL YATACO T VISIT SERV ANG 25 [facility] UNIVERSIT - 2 3 Y INPATIENT HOSPITAL EMERGENCY 11940 POPPY LOPEZ DEPT 2 2 EMERGENCY VENUS VISIT SERVICES HIGH SEVERITY& THREAT [facility] EMERGENCY 58227 POPPY SANTA DEPT 2 2 EMERGENCY VISIT SERVICES HIGH SEVERITY& THREAT [facility] [place] [address] [facility] HOSPITA OFFICE 73020 CULBERTSO CULBERTSO OUTPATIEN 2 2 N KALYAN N KALYAN T VISIT 15 MINUTES OFFICE 17280 CULBERTSO CULBERTSO OUTPATIEN 1 1 N KALYAN N KALYAN T VISIT 15 [facility] UNIVERSIT - 1 1 Y [facility] UNIVERSIT - 1 1 Y [facility] UNIVERSIT - 0 0 Y [facility] OFFICE 60288 CULBERTSO CULBERTSO OUTPATIEN 0 0 N KALYAN N KALYAN T VISIT 15 MINUTES OFFICE 02562 TARAS MARTINEZ OUTPATIEN 0 0 MEDICAL KAMALA T VISIT SERV 15 [facility] [place] - 0 0 MEM HOS[facility] OUTPATIEN [facility] T EMERGENCY 52809 POPPY MORRISSEY DEPT 0 0 EMERGENCY III TRISTA VISIT SERVICES HIGH SEVERITY& THREAT [facility] EMERGENCY 58586 [place] 0 0 [facility] DEPARTMEN INC T VISIT MODERATE SEVERITY OFFICE 91692 TARAS MARTINEZ OUTPATIEN 0 0 MEDICAL KAMALA T VISIT SERV 15 [facility] [place] - 0 0 [facility] OUTPATIEN INC T EMERGENCY 75448 [place] 0 0 [facility] DEPARTMEN INC T VISIT LOW/MODER SEVERITY OFFICE 21005 CULBERTSO CULBERTSO OUTPATIEN 9 9 N, GEREMIAS DOUGHERTY VISIT 15 MINUTES [facility] [address] [facility] HOSPITAL OFFICE 50658 CULBERTSO CULBERTSO OUTPATIEN 9 9 N, GEREMIAS DOUGHERTY VISIT 15 MINUTES OFFICE 54008 CULBERTSO CULBERTSO OUTPATIEN 9 9 N, GEREMIAS DOUGHERTY VISIT 25 MINUTES OFFICE 28615 CULBERTSO CULBERTSO OUTPATIEN 9 9 NGEREMIAS ROBERT T VISIT 15 MINUTES HOSPITAL UNIVERSIT - 9 9 Y [facility]PITAL UNIVERSIT - 9 9 Y [facility] OFFICE 37929 KAM ENCARNACION 9 9 MEDICAL TONO J ION SERV NEW/ESTAB FOUNDATIO PATIENT 40 MIN OFFICE 17992 [facility] MAKSIM [facility] 9 9 [facility] NESHA CLEMONS T VISIT ORTHOPAED A 15 IC MINUTES [facility]ONS [facility] HOSPITAL UNIVERSIT - 9 9 Y [facility] HOSPITAL UNIVERSIT - 8 8 Y [facility] OFFICE 00069 CULBERTSO CULBERTSO [facility] 8 N, GEREMIAS DOUGHERTY VISIT 15 MINUT[facility] - [address] [facility]PITAL OFFICE [id number] [facility] 8 8 IINESHA II, GLEN T VISIT A A 15 MINUTES
--- OUTSIDE RECORDS SUMMARY | 2016-09-26 10:41 | External Medical Summary Rpt ---
Author Author [employer] Millard, CHATO Millard Organization [employer] Address Unknown Phone Unavailable
--- OUTSIDE RECORDS SUMMARY | 2016-09-26 10:41 | External Medical Summary Rpt ---
Demographics Preferred Language Turkmen Marital Status Unknown Voodoo Affiliation Unknown Race Unknown Ethnic Group Unknown Author Author , Organization [employer] Address Unknown Phone Unavailable Purpose Continuity of Care Document - through 2016 Immunization No patient found.
--- OUTSIDE RECORDS SUMMARY | 2016-09-26 10:41 | External Medical Summary Rpt ---
Demographics Preferred Language Swedish Marital Status Unknown Caodaism Affiliation Unknown Race Unknown Ethnic Group Unknown Author Author , Organization [employer] Address Unknown Phone Unavailable Purpose Continuity of Care Document - through 2016 Immunization No patient found.
[2016-09-26 16:00] VITALS: BP 125/72
[2016-09-26 19:42] VITALS: BP 130/81
[2016-09-26 20:28] VITALS: BP 130/81
[2016-09-27 04:00] VITALS: BP 138/87
[2016-09-27 06:23] LABS: LYMPH # 0.6 K/mm3 (0.7-4.5)
[2016-09-27 07:03] LABS: HEMOGLOBIN 9.5 g/dL (14.1-18.0)
--- NOTE | 2016-09-27 07:23 | ACUTE CARE PROGRESS NOTE (QUA) ---
Progress Notes Subjective Date 09/27/16 Time 0721 Note Patient has no complaints this morning. He has been coughing with significant sputum production that he describes as light to dark green. He is resting comfortably in bed with nasal cannula oxygen. Lung exam reveals good aeration with expiratory wheezes posteriorly. Heart has regular rate and rhythm. Patient is at his baseline. He will be discharged home to continue steroid taper throughout the rest of the week. He will resume his home medications including 3 times per week azithromycin. Objective Findings Last VS-Temp:97.8 B/P:138/87 Pulse:92 Resp:22 SaO2:97 OXYGEN Last weight lbs:286 oz:4 K.843 Method:Bed Scales Laboratory Tests 09/27/16 0600: Sodium 141, Potassium 4.4, Chloride 104, Carbon Dioxide 35 H, BUN 19 H, Creatinine 0.9, Estimated Creat Clear 164, Estimated GFR (MDRD) 87, Glucose 152 H, Calcium 8.7, WBC 11.9 H, RBC 3.37 L, Hgb 9.5 L, Hct 29.6 L, MCV 88.6, RDW 18.1 H, Plt Count 210, MPV 6.7 L, Gran % 90.0 H, Gran # 10.4 H, Lymphocytes % 5.0 L, Monocytes % 5.0, Eosinophils % 0.0 L, Basophils % 0.0 L, Lymphocytes # 0.6 L, Monocytes # 0.6, Eosinophils # 0.0, Basophils # 0.0, PUBS MCHC 31.3 L , MCH 27.7 Assessment/Plan Problem List 1. Chronic obstructive pulmonary disease with (acute) exacerbation 2. Chronic respiratory failure 3. Interstitial lung disease 4. Pulmonary fibrosis 5. Morbid obesity Patient condition Improving Plan: initiate discharge plan This inpt stay is expected to cross 2 MNs from start of care Yes Antibiotic Stewardship (2) Infxn that will respond? Yes Right drug,dose,and route? Yes More targeted antbx? No at 0722
[2016-09-27] MEDS ORDERED: DELTASONE20 MG PO (07:24)
[2016-09-27 08:14] VITALS: BP 138/87
[2016-09-27 08:32] VITALS: BP 158/79
[2016-09-27 10:23] LABS: NEUTROPHILS 89 % (42-76)
[2016-09-27 10:28] VITALS: BP 158/79
--- NOTE | 2016-09-28 07:18 | Discharge Summary ---
Demographics Admit date: 09/23/16 Discharge date: 09/27/16 Discharge diagnoses Problem List 1. Chronic obstructive pulmonary disease with (acute) exacerbation 2. Chronic respiratory failure 3. Interstitial lung disease 4. Pulmonary fibrosis 5. Morbid obesity 6. Rhinovirus infection History of present illness History of present illness 60-year-old male with chronic lung disease, severe chronic obstructive pulmonary disease, pulmonary fibrosis, rheumatoid arthritis, chronic pain presents to the emergency department at [facility] with complaint of increasing shortness of breath since the beginning of the week. Patient reports subjective fevers at home along with chills, a cough that is productive of either clear or light green or dark green sputum, and increasing shortness of breath. Patient was actually scheduled to be seen in my office on Tuesday of this week and missed that appointment. He was then seen on September 22 by my nurse practitioner who contacted Dr. Escamilla about the patient and he was subsequently [facility]. The patient tells me he was in the ER for several hours. It sounds like he pushed for decision to be made on whether he would be admitted to the hospital or not. They sent him home with prednisone and a prescription for doxycycline. He then came to our emergency department today. So far in 2017 he has had multiple exacerbations of his chronic lung disease requiring steroids and antibiotics. He is also had to correction facility stays, one at [facility] and 1 at [facility] for attempts at pulmonary rehab. In the emergency department patient's O2 sats were in the 80s and 90s which is higher than any of his last 4 office visits when his O2 sats have ranged from the mid to high 70s to the low 80s. Patient was admitted and placed on Solu-Medrol for his chronic obstructive pulmonary disease exacerbation with aerosols every 4 hours. Patient was also placed on Invanz due to his history of Pseudomonas. Respiratory PCR panel was performed which revealed enterovirus as the cause of his chronic obstructive pulmonary disease exacerbation. Patient was continued on steroids throughout hospitalization with aerosols. Patient improved a little each day. On the day of discharge she still had faint expiratory wheezes but this is his baseline. Patient was discharged home and will follow-up in the office in 3-4 days. Medications Medications: Discharge meds are as noted. Follow up Follow up in office in: 4 DAYS with: Norm Perez MD at [id number]
--- NOTE | 2016-09-28 07:18 | Discharge Summary ---
Demographics Admit date: 09/23/16 Discharge date: 09/27/16 Discharge diagnoses Problem List 1. Chronic obstructive pulmonary disease with (acute) exacerbation 2. Chronic respiratory failure 3. Interstitial lung disease 4. Pulmonary fibrosis 5. Morbid obesity 6. Rhinovirus infection History of present illness History of present illness 60-year-old male with chronic lung disease, severe chronic obstructive pulmonary disease, pulmonary fibrosis, rheumatoid arthritis, chronic pain presents to the emergency department at [facility] with complaint of increasing shortness of breath since the beginning of the week. Patient reports subjective fevers at home along with chills, a cough that is productive of either clear or light green or dark green sputum, and increasing shortness of breath. Patient was actually scheduled to be seen in my office on Tuesday of this week and missed that appointment. He was then seen on September 22 by my nurse practitioner who contacted Dr. Escamilla about the patient and he was subsequently sent to [facility] emergency department. The patient tells me he was in the ER for several hours. It sounds like he pushed for decision to be made on whether he would be admitted to the hospital or not. They sent him home with prednisone and a prescription for doxycycline. He then came to our emergency department today. So far in 2017 he has had multiple exacerbations of his chronic lung disease requiring steroids and antibiotics. He is also had to [facility] facility stays, one at [facility] and 1 at [facility] for attempts at pulmonary rehab. In the emergency department patient's O2 sats were in the 80s and 90s which is higher than any of his last 4 office visits when his O2 sats have ranged from the mid to high 70s to the low 80s. Patient was admitted and placed on Solu-Medrol for his chronic obstructive pulmonary disease exacerbation with aerosols every 4 hours. Patient was also placed on Invanz due to his history of Pseudomonas. Respiratory PCR panel was performed which revealed enterovirus as the cause of his chronic obstructive pulmonary disease exacerbation. Patient was continued on steroids throughout hospitalization with aerosols. Patient improved a little each day. On the day of discharge she still had faint expiratory wheezes but this is his baseline. Patient was discharged home and will follow-up in the office in 3-4 days. Medications Medications: Discharge meds are as noted. Follow up Follow up in office in: 4 DAYS with: Norm Perez MD at 0736
== END 2016-09-27 10:30 | disposition home health service (06) | DRG 191 ==
LOC: ER 11:51 → 2ND 13:58
PROVIDERS: Emergency Medicine; Family Medicine; Internal Medicine Adolescent Medicine
DX: J44.1 Chronic obstructive pulmonary disease with (acute) exacerbation (principal); J96.10 Chronic respiratory failure, unspecified whether with hypoxia or hypercapnia; J84.9 Interstitial pulmonary disease, unspecified; Z68.41 Body mass index [BMI] 40.0-44.9, adult; J84.10 Pulmonary fibrosis, unspecified; Z99.81 Dependence on supplemental oxygen; E66.01 Morbid (severe) obesity due to excess calories; B97.19 Other enterovirus as the cause of diseases classified elsewhere; M06.9 Rheumatoid arthritis, unspecified; G89.29 Other chronic pain
CPT/HCPCS: J1335

== ENCOUNTER 2016-09-28 09:35 | Inpatient (IN) | payer MEDICARE, MEDICAID ==
[~2016-09-28] VITALS: Ht 172.7 cm; Wt 113.9 kg
[~2016-09-28 09:35] MED LIST changes: +DELTASONE20 MG PO
[2016-09-28 09:38] VITALS: BP 125/78
--- NOTE | 2016-09-28 09:57 | Emergency Room Report ---
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 N Clinical Suspician of Infection? N Mental Status: 1 - Regular (Normal Baseline) Sepsis Risk:Low Sepsis Risk Have you (or family members/close friends) recently traveled outside the [place]? N If Yes, where/when: Have you had exposure to infectious disease within the past month? N TB? Other? Specify: Patient states he was recently diagnosed with viral pneumonia and was discharged he states he is since had about 6 episodes of diarrhea and vomiting 3-4 times since yesterday. States his shortness of breath is worse in any he's having fevers he states that he is on erythromycin antibiotic. He states since last night he is developed the pain in his LEFT posterior chest that is new. Until I pressed on him he the denied any abdominal pain. He states he has cough productive of yellow phlegm ALLERGIES Coded Allergies: No Known Allergies (04/28/16) Home Medications Active Scripts Prednisone (Deltasone) 20 MG PO DAILY #10 TAB Prov: 09/27/16 Reported Medications Ranolazine (Ranexa) 1,000 MG PO BID Metoprolol Tartrate (Lopressor) 25 MG PO BID #60 Gabapentin 300 MG PO BID #60 Omeprazole (Prilosec 20MG) 20 MG PO DAILY Leflunomide (Arava) 20 MG PO DAILY Alprazolam (Xanax 1MG) 1 MG PO TID #90 TAB Sertraline Hydrochloride (Sertraline 100MG) 100 MG PO DAILY #30 CLOPIDOGREL BISULFATE (Clopidogrel) 75 MG PO DAILY #30 MULTIVIT-MIN W/FE-FA ( Multivitamin Tablet) 1 TAB PO DAILY Montelukast Sodium (Singulair) 10 MG PO QHS HYDROCODONE/ACETAMINOPHEN (Hydrocodon-Acetaminophn 10-325) 1 TAB PO Q4HP PRN PAIN #150 TRAZODONE HCL (Trazodone HCl) 50 MG PO QHS ALBUTEROL-IPRATROPIUM (Combivent Inhaler) 1 PUFFS IN Q6H FLUTICASONE/SALMETEROL (Advair 250-50 Diskus) 1 PUFF IN BID History Medical History General CAD? No Angina: No MT: Yes Hypertension? Yes Hyperlipidemia? No CHF? No DVT? No PE? No COPD? Yes Asthma? Yes Anemia? Yes GERD? Yes Gastric ulcers? No GI Bleed? No Hernia? Yes Thyroid Problems? No Hypothyroidism? No CVA? No Seizures? No Diabetes? No Renal Insuffiency? No End Stage Renal Disease? No UTI? Yes Stones? Yes BPH? Yes GB Disease: No Nephritic Syndrome? No Asplenia? No Hepatitis? No Sickle Cell Disease? No Arthritis? Yes Migraines? No Cataracts? No Glaucoma? No MRSA? Yes HIV? No TB? No Anxiety? Yes Depression? Yes Cancer? No More? 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 Immunization Hx DT/Tetanus N Flu [id number] Pneumonia Received In Past Surgical Hx Previous Surgery?Y LEFT ANKLE BILATERAL CARPAL TUNNEL RIGHT FOOT R SHOULDER REPLACEMENT IBV VALVE RT LUNG LEFT ANKLE IBV VALVE RT LUNG REMOVED Family History Family Hx Diabetes No CAD No Hypertension Yes Hyperlipidemia No Cancer Yes TB No Social History Smoking Hx Smoker: Former Smoker Tobacco: Yes Type Cigarettes Packs/day N/A Alcohol Alcohol: No Review of Systems All Other Systems Reviewed and Negative Physical Exam Vital Signs Vital Signs Date Time Temp Pulse Resp B/P Pulse O2 O2 Flow FiO2 Ox Delivery Rate 09/28 1355 111 22 114/75 91 3 09/28 1310 59 18 131/77 95 3 09/28 1240 113 18 166/93 95 3 / 1210 115 18 144/80 95 3 / 1110 129 18 144/91 95 3 / 1040 131 18 138/98 99 3 / 0945 93 09/28 0938 98.6 139 18 125/78 95 3 General Appearance: Nontoxic Head: Normocephalic, without obvious abnormality, atraumatic. Eyes: conjunctiva/corneas clear ENT: Mucous membranes dry Neck: No jugular venous distention. Cardiac: tachycardic rate and regular rhythm Lungs: diminished wheezes rhonchi auscultation bilaterally Abdomen: left Sided and LEFT lower quadrant tenderness, Nondistended, positive bowel sounds, no rebound : No CVA tenderness Extremities: no edema No Homans sign No calf tenderness No swelling in legs Musculoskeletal: No chest wall tenderness Skin: No rashes or lesions to exposed skin. Neurologic: Alert. No gross focal deficits Psychiatric: Normal affect (Rebecca IBRAHIM, Jin) General Appearance fatigued Respiratory Status Yes: trachea midline. Cardiovascular no JVD Neurologic alert Medical Decision Making LABS/Meds/Orders Pt receiving controlled substance in ED? No Comment Patient's chest x-ray has been read as pneumonia as well as congestive heart failure patient appears intravascularly dehydrated with tachycardia dry mouth. IV antibiotics has been ordered and patient will be admitted his BMP is in the 200s, d dimer is positive will get a CAT scan of the chest 114 call radiologist, states pneumonia no PE. pt with continued left abdominal pain, has copious thick yellow sputum. lactate normal, abdomen tender, will get abdominal CT as well. Results/Orders Laboratory Tests 09/28/16 1000: Lipase 50 L 09/28/16 1000: Lactic Acid 1.0 09/28/16 1000: Sodium 141, Potassium 3.9, Chloride 103, Carbon Dioxide 31, BUN 16, Creatinine 1.1, Estimated Creat Clear 113, Estimated GFR (MDRD) 69, Glucose 102, Calcium 8.5, Total Bilirubin 0.8, AST 20, ALT 24, Alkaline Phosphatase 46, Creatine Kinase 51, CK-MB (CK-2) Rel Index 1.0, CK and CKMB Interp < 0.5, Troponin I 0.03 , B-Natriuretic Peptide 239 H, Total Protein 6.7, Albumin 2.2 L, Globulin 4.5 H, Albumin/Globulin Ratio 0.5 L, D-Dimer 1270 *H, WBC 18.4 H, Corrected WBC ( auto) 18.2, RBC 3.65 L, Hgb 10.0 L, Hct 32.2 L, MCV 88.3, RDW 18.4 H, Plt Count 237, MPV 6.2 L, Gran % 86.5 H, Gran # 15.9 H, Total Counted 100, Lymphocytes % 10.1, Monocytes % 2.7, Eosinophils % 0.4, Basophils % 0.3, Neutrophils 77 H, Band Neutrophils 5, Lymphocytes (Manual) 13, Lymphocytes # 1.9, Monocytes (Manual) 5, Monocytes # 0.5, Eosinophils # 0.1, Basophils # 0.1, Nucleated RBCs 1, Platelet Estimate NORMAL, Hypochromasia 1+, Anisocytosis 2+, PUBS MCHC 31.2 L, MCH 27.5 Current Medication Orders Sig/Rito Start time Last Medication Dose Route Stop Time Status Admin Vancomycin HCl 1,750 MG Q12H 09/28 2300 AC Sodium Chloride 250 ML IV Vancomycin HCl 1,750 MG ONCE ONE 09/28 1345 AC 09/28 Sodium Chloride 250 ML IV 09/28 1544 1402 Miscellaneous 1 EACH CONSULT PHARMACY 09/28 1330 AC Information * 09/29 0129 Iopamidol 60 ML ONCE ONE 09/28 1200 DC 09/28 IV 09/28 1201 1157 Sodium Chloride 40 ML ONCE ONE 09/28 1200 DC 09/28 IV 09/28 1201 1157 Sodium Chloride 1,000 ML .Q1H1M 09/28 1015 DC IV 09/28 1115 Sodium Chloride 10 ML PRN PRN 09/28 1015 AC IV 09/29 1002 Albuterol/Ipratropium 0 .STK-MED ONE 09/28 1005 DC INH Methylprednisolone 0 .STK-MED ONE 09/28 1005 DC Sodium Succinate .ROUTE Levofloxacin/Dextrose 150 ML .STK-MED ONE 09/28 1004 DC IV Albuterol/Ipratropium 3 ML ONCE ONE 09/28 1000 DC INH 09/28 1001 Albuterol/Ipratropium 3 ML ONCE ONE 09/28 1000 DC 09/28 INH 09/28 1001 1008 Levofloxacin/Dextrose 150 ML ONCE ONE 09/28 1000 DCr / IV 09/28 1129 1008 Methylprednisolone 125 MG ONCE ONE 09/28 1000 DC 09/28 Sodium Succinate IV 09/28 1001 1008 Sodium Chloride 10 ML PRN PRN 09/28 0945 AC IV 09/29 0944 Sodium Chloride 1,000 ML .STK-MED ONE 09/28 0940 DC IV Orders Procedure Date/time Status DIET-NOTHING BY MOUTH 09/28 L Complete DIET-NOTHING BY MOUTH 09/[address] ABD/PELVIS REQ 09/28 1313 Complete PHARMACIST CONSULT 09/[address] CHEST W/PE PROTOCOL REQ 09/28 1042 Complete RT REQUEST DUONEB 09/28 1000 Active CULTURE, STOOL 09/28 1000 Active OVA AND PARASITE EXAM 09/28 1000 Active STOOL FOR WBC'S 09/28 1000 Active LIPASE 09/28 1000 Complete DIFFERENTIAL-WBC 09/28 1000 Complete D-DIMER 09/28 1000 Complete CLOSTRIDIUM DIFFICLE TOXIN A,B 09/28 1000 Active 12 LEAD EKG-TIAGO (INITIAL) 09/28 0945 Active ELECTROCARDIOGRAM REQUEST 09/28 0944 Active IV SALINE LOCK 09/28 0944 Active OXYGEN PER NURSE 09/28 0944 Active INSPECTOR EXPERIMENTAL ASSEMBLY 09/28 0944 Active CULTURE, BLOOD 09/28 0944 Active LACTIC ACID 09/28 0944 Complete CBC WITH AUTO DIFF 09/28 0944 Complete CARDIAC ENZYMES 09/28 0944 Complete CHEM 12 PROFILE 09/28 0944 Complete BRAIN NATRIURETIC PEPTIDE 09/28 0944 Complete CM/EKG 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 Rhythm Sinus Tachycardia Rate 137 Ectopy No Comments RR part-time RIGHT bundle-branch block RIGHT axis deviation comparison electrocardiogram no significant interval change was noted in comparison to 2016 electrocardiogram Departure Departure Time of Disposition 1451 Disposition Still a Patient Clinical Impression Primary Impression: Pneumonia Qualifiers: Pneumonia type: due to unspecified organism Laterality: bilateral Lung location: unspecified part of lung Qualified Code: J18.9 - Pneumonia, unspecified organism Secondary Impressions: Abdominal pain Qualifiers: Abdominal location: left lower quadrant Qualified Code: R10.32 - Left lower quadrant pain Condition STABLE Referrals Norm Perez MD (Family) ED Critical Care Critical Care No at 1452
[2016-09-28 10:13] LABS: LYMPH # 1.9 K/mm3 (0.7-4.5); LYMPH % 10.1 % (10-50)
--- OUTSIDE RECORDS SUMMARY | 2016-09-28 10:24 | External Medical Summary Rpt ---
Author Author , Organization [employer] Address Unknown Phone Unavailable Care Team Providers Care Billet Worker Name Role Phone A Candice COLBERT MD PSC, A Unavailable Unavailable Candice COLBERT MD PSC MARTIN MCKINNEY Unavailable Unavailable REEMA ELDER, Unavailable Unavailable REEMA BOOTH [facility], Unavailable Unavailable INC., [facility] Unavailable Unavailable [place], [facility] [place] [facility], [facility] AND Unavailable Unavailable [facility] NUVIA, Unavailable Unavailable [facility] NUVIA BESSON KAMALA, BESSON Unavailable Unavailable KAMALA SOHEILA DEENA, Unavailable Unavailable SOHEILA DEENA JOYCE ELLY, JOYCE Unavailable Unavailable ELLY [facility] Unavailable Unavailable SERVICE, [facility]ICE [facility] Unavailable Unavailable SERVICE, [facility] SERVICE CAMILLE KET, CAMILLE KET Unavailable Unavailable GRZEGORZ CRACKING MACHINE OPERATOR, GRZEGORZ Unavailable Unavailable CRACKING MACHINE OPERATOR TITI JAG, TITI Unavailable Unavailable FAUSTINO MCDOWELL, [...] JESSICA VENUS, JESSICA Unavailable Unavailable VENUS [facility] Unavailable Unavailable HOSPITA, [facility] Unavailable Unavailable [facility], [facility], [facility] Unavailable Unavailable [facility] Unavailable Unavailable INC, [facility] Unavailable Unavailable HOSPITAL P, [facility] P DUBOIS KAMALA, DUBOIS KAMALA Unavailable Unavailable RENA, MARIXA G, RENA, Unavailable Unavailable MARIXA G [facility] HARLEY OSCAR, Unavailable Unavailable [...] HOLDINGS, [facility], Unavailable Unavailable [facility] JUAN KAMALA, Unavailable Unavailable JUAN KAMALA TONO MARTINEZ, Unavailable Unavailable TONO MARTINEZ MARION, HAYWOOD Unavailable Unavailable MARION JESICA JAM, JESICA JAM Unavailable Unavailable TIAGO JR DWI, TIAGO Unavailable Unavailable JR DWI LUKINS TIERRA, LUKINS Unavailable Unavailable TIERRA [facility] Unavailable Unavailable SERVICES, [facility] MAKSIM II, NESHA A, Unavailable Unavailable MAKSIM II, NESHA A THOMPSON JAM, Unavailable Unavailable DONNA WESTON, Unavailable Unavailable TOSHIA WESTON [facility] Unavailable Unavailable OF THE B, [facility], Unavailable Unavailable [facility] MYRON, ANUPAM, Unavailable Unavailable MYRON, CAMACHOARRRICHY AGUIRRE, Unavailable Unavailable RICHY HOLLIS MOE CHET, MOE CHET Unavailable Unavailable SEETHARMRAJU HAZEL, Unavailable Unavailable SEETHARMRAJU HAZEL JENNIFER BOSCH, Unavailable Unavailable JENNIFER BOSCH [facility] Unavailable Unavailable EQUIPME, [facility] Unavailable Unavailable EQUIPME, [facility] TIM JUAREZ, Unavailable Unavailable TIM JUAREZ, Unavailable Unavailable SADIE GIRARD PRE, TALARI Unavailable Unavailable PRE [facility], Unavailable Unavailable [facility] Unavailable Unavailable [facility] INTER GERALD MINA, Unavailable Unavailable ALEJO STRICKLAND, Unavailable Unavailable ALEJO AVENDANO III, Unavailable Unavailable DEONDRE PERAZA III Unavailable Unavailable EMELIA ONTIVEROS, EMELIA ONTIVEROS Unavailable [facility]available [facility], Unavailable Unavailable [facility] Purpose Continuity of Care Document - 07-10-2007 through 2016 Problems Code Diagnosis DOS Provider Status F17.210 Nicotine 09-28-2016 dependence, cigarettes, uncomplicat ed G62.9 Polyneuropa 09-28-2016 thy, unspecified I10 Essential 09-28-2016 (primary) hypertensio n I73.9 Peripheral 09-28-2016 vascular disease, unspecified J44.1 Chronic 09-28-2016 obstructive pulmonary disease with (acute) exacerbatio n J84.10 Pulmonary 09-28-2016 fibrosis, unspecified M06.9 Rheumatoid 09-28-2016 arthritis, unspecified R06.00 Dyspnea, 09-28-2016 unspecified 486 PNEUMONIA, 03-16-2014 [facility] UNSPECIFIED MEDICAL EQUIPME 496 CHRONIC 03-16-2014 [facility] OBSTRUCTION MEDICAL NEC EQUIPME 515 POSTINFLAMM 03-19-2013 [place] MEDICAL ATORY SERV PULMONARY FOUNDATIO FIBROSIS 7245 UNSPECIFIED 03-19-2013 [facility] 13209 OTHER 03-19-2013 [facility] [address] OBSTRUCTIVE 03-10-2013 [facility] APNEA MEDICAL EQUIPME 95905 OTHER 03-07-2013 [place] [facility] LUNG NOT INC ELSEWHERE CLASSIFIED 7242 LUMBAGO 03-06-2013 [facility] INC V571 OTHER 03-06-2013 [facility] THERAP[facility] 02982 OTHER 03-01-2013 IN MEDICAL CONDITIONS SERV OF BRAIN FOUNDATIO 7140 RHEUMATOID 03-01-2013 [place] [facility] ARTHRITIS SERV [facility] 7840 HEADACHE 03-01-2013 [place] [facility] [place] 22951 DIARRHEA 03-01-2013 [place] [facility] 7930 NONSPECIFIC 03-01-2013 [place] [facility] ABN FNDNG SERV RAD & OTH FOUNDATIO EXM SKULL & HEAD E8889 UNSPECIFIED 03-01-2013 [place] [facility] FALL SERV [facility] 23598 OTHER 02-28-2013 [place] [facility] CHRONIC SERV PAIN FOUNDAT[facility] 4019 UNSPECIFIED 02-28-2013 [place] [facility] ESSENTIAL SERV HYPERTENSIO FOUNDATIO N 18654 FEVER 02-28-2013 [place] [facility] UNSPECIFIED SERV F[place] 65696 OTHER 02-28-2013 [place] NONSPECIFIC SERV ABNORMAL FOUNDAT[place] FINDING OF LUNG FIELD 412 OLD 02-27-2013 [facility] INFARCTION 58491 CORONARY 02-27-2013 [facility] [place] CORONARY ARTERY 4829 UNSPECIFIED 02-27-2013 [facility] BACTERIAL AMBULANCE PNEUMONIA SERVICE 5184 UNSPECIFIED 02-27-2013 [place] [facility] ACUTE SERV EDEMA OF FOUNDATIO LUNG 5849 ACUTE 02-27-2013 [facility] FAILURE UNSPECIFIED 07704 RHEUMATOID 02-27-2013 [facility] V4361 SHOULDER 02-27-2013 IN MEDICAL JOINT SERV REPLACEMENT FOUNDATIO BY OTHER MEANS V462 DEPENDENCE 02-27-2013 [facility] FOR SUPPLEMENTA L OXYGEN 48630 OBSTRUCTIVE 02-26-2013 [facility] P WITH EXACERBATIO N V5869 LONG-TERM 02-20-2013 [facility] OF USE OF [place] OTHER MEDICATIONS V6751 F/U EXAM 02-20-2013 [facility] FOLLOW CMPL [place] [facility] W/HIGH-RISK MED NEC 55219 COR 02-12-2013 [facility] UNSPEC TYPE VESSEL [place]/RAUL T 4940 BRONCHIECTA 01-31-2013 IN MEDICAL SIS WITHOUT SERV ACUTE FOUNDATIO EXACERBATIO N 10651 IDIOPATHIC 01-31-2013 [facility] FIBROSIS SERVICES 7856 ENLARGEMENT 01-31-2013 IN MEDICAL OF LYMPH SERV NODES FOUNDATIO 77045 SHORTNESS 01-31-2013 IN MEDICAL OF BREATH SERV FOUNDATIO 50453 OTHER 01-31-2013 [facility] RESPIRATORY AMBULANCE SERVICE COMPLICATIO NS 0529 VARICELLA 01-06-2013 A Candice PINZON MD PSC MENTION OF COMPLICATIO N 7862 COUGH 01-06-2013 A Candice COLBERT MD PSC 4660 ACUTE 11-06-2012 A Candice OBRIEN MD PSC V5812 ENCOUNTER 09-25-2012 [facility] ANTINEOPLAS [place] TIC IMMUNOTHERA PY 2859 UNSPECIFIED 08-31-2012 [facility] 4841 PNEUMONIA 08-31-2012 IN MEDICAL IN SERV CYTOMEGALIC FOUNDATIO INCLUSION DISEASE 5168 OTH SPEC 08-31-2012 IN MEDICAL ALVEOL&DEONNA SERV ETOALVEOL FOUNDATIO PNEUMONOPAT HIES 64590 NAUSEA WITH 08-02-2012 IN MEDICAL VOMITING SERV FOUNDATIO V1209 PERSONAL HX 08-02-2012 IN MEDICAL OTH SERV INFECTIOUS& FOUNDATIO PARASITIC DISEASE 2724 OTHER AND 07-31-2012 [facility] HYPERLIPIDE ALEKSANDAR 5589 OTH&UNSPEC 07-31-2012 [place] [facility]ICAL NONINFECTIO SERV US FOUNDATIO GASTROENTER ITIS&COLITI S 83667 VOMITING 07-31-2012 [facility] INTER 26379 ABDOMINAL 07-31-2012 [place] [facility] PAIN, SERV EPIGASTRIC FOUNDATIO 06508 SYSTEMIC 07-31-2012 [facility] Y RESPONSE SYNDROME UNSPEC V1269 PERSONAL 07-31-2012 [place] [facility] HISTORY SERV OTHER FOUNDATIO DISEASES RESPIRATORY SYS 514 PULMONARY 07-03-2012 [facility] [place] [facility] RADIOLOGY AND HYPOSTASIS 7295 PAIN IN 07-03-2012 [facility] ESPERAN[facility] SOFT TISSUES OF LIMB 7823 EDEMA 07-03-2012 [facility] ESPERANZA 5119 UNSPECIFIED 07-01-2012 [facility] IN PLEURAL RADIOLOGY EFFUSION 05757 OTHER 06-20-2012 IN MEDICAL DISEASES OF SERV NASAL FOUNDATIO CAVITY AND SINUSES 5121 IATROGENIC 06-16-2012 IN MEDICAL PNEUMOTHROA SERV X FOUNDATIO 92810 ACUTE AND 06-16-2012 IN MEDICAL CHRONIC SERV RESPIRATORY FOUNDATIO FAILURE 59529 SEPTIC 06-16-2012 [place] [facility] SHOCK SERV [facility]AT[place] 0785 CYTOMEGALOV 06-15-2012 [facility] 65942 CHEST PAIN 06-15-2012 [facility]PECIF[facility] CTR OF THE B 7850 UNSPECIFIED 06-11-2012 [place] [facility] SERV TACHYCARDIA FOUNDATIO 4279 UNSPECIFIED 05-17-2012 IN MEDICAL CARDIAC SERV DYSRHYTHMIA FOUNDATIO 25953 ACUTE 05-17-2012 IN MEDICAL RESPIRATORY SERV FAILURE FOUNDATIO 95314 OTHER 04-24-2012 [facility] BRUNILDA SEPTICEMIA 1124 CANDIDIASIS 04-24-2012 [facility] 5070 PNEUMONITIS 04-24-2012 [facility] INHALATION OF FOOD OR VOMITUS 5100 EMPYEMA 04-24-2012 [facility] FISTULA 5183 PULMONARY 04-22-2012 [facility] 22094 REFLUX 08-03-2011 [facility] ESOPHAGITIS K[facility]AN 08906 OTHER 08-03-2011 [facility] SYMPTOMS [facility] INVOLVING DIGESTIVE SYSTEM OTHER 490 BRONCHITIS 07-13-2010 [facility] NOT [facility] SPECIFIED ACUTE OR CHRONIC 34493 ASTHMA, 07-13-2010 [facility] UNSPECIFIED KALYAN , UNSPECIFIED STATUS 59854 PAIN IN 07-08-2010 [facility] ANKLE AND FOOT 54179 DISORDER OF 07-08-2010 IN MEDICAL BONE AND SERV CARTILAGE FOUNDATIO UNSPECIFIED V454 ARTHRODESIS 07-08-2010 [place] [facility] STATUS SERV F[place]AT[place] V5489 OTHER 07-08-2010 [facility] AFTERCARE V5409 OTH 06-17-2010 [place] [facility] AFTERCARE SERV INVOLVING FOUNDATIO INTERNAL FIXATION DEVICE V6700 FOLLOW-UP 06-01-2010 [place] [facility] EXAMINATION SERV FOLLOWING FOUNDATIO UNSPEC SURGERY 76726 PRIMARY 05-12-2010 [place] [facility]ICAL LOCALIZED SERV OSTEOARTHRO FOUNDATIO SIS ANKLE AND FOOT 58524 PAIN IN 05-12-2010 [place] [facility] JOINT, SERV LOWER LEG FOUNDATIO V0481 NEED 05-12-2010 [facility] C VACCINATION &INOCULATIO N FLU V5849 OTHER 05-12-2010 [place] [facility]ICAL SPECIFIED SERV AFTERCARE FOUNDATIO FOLLOWING SURGERY 4659 ACUTE URIS 04-17-2010 [facility] OF [place] UNSPECIFIED SITE 72279 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 IN MEDICAL RHEUMATISM SERV ANKLE AND FOUNDATIO FOOT 68903 PAIN IN 04-02-2010 [facility] JOINT, AMERIC UPPER ARM HOLDING 75948 OBST 03-12-2010 [facility] P W/ACUTE BRONCHITIS 76891 PAINFUL 03-12-2010 [facility] 54213 UNSPECIFIED 05-20-2009 [facility] BANERJEE ARTHROPATHY SITE UNSPECIFIED 4011 ESSENTIAL 05-09-2009 [facility] N, BENIGN PSC 84341 OTHER CHEST 05-09-2009 [facility] PAIN GEREMIAS V7651 SPECIAL 05-09-2009 [facility] BANERJEE FOR MALIGNANT NEOPLASMS COLON 7808 GENERALIZED 05-05-2009 [facility] BANERJEE HYPERHIDROS IS 5960 BLADDER 03-18-2009 [facility] [place] INC OBSTRUCTION 2720 PURE 03-17-2009 [facility] HYPERCHOLES GEREMIAS TEROLEMIA 69020 ESOPHAGEAL 03-17-2009 [facility] REFLUX GEREMIAS 09045 PRIMARY 03-17-2009 [facility] LOCALIZED [facility]EREMIAS OSTEOARTHRO SIS OTH SPEC SITES 75359 OTH MECH 11-26-2008 [facility] DEVC IMPL&GFT 27710 OTH COMPS 11-26-2008 [place] MEDICAL DUE OTH SERV INTRL FOUNDATIO ORTHOPED DEVICE IMPL&GFT 7271 BUNION 11-11-2008 [facility] 77549 NONSPECIFIC 11-11-2008 [facility] ELECTROCARD IOGRAM V4589 OTHER 11-11-2008 [facility] L STATUS OTHER 18205 EFFUSION OF 09-19-2008 [facility] LOWER LEG H JOINT ORTHOPAEDIC SURGEONS PSC 87801 VILLONODULA 09-19-2008 [facility] R H SYNOVITIS, ORTHOPAEDIC LOWER LEG SURGEONS PSC 5185 PULMONARY 05-16-2008 [facility] INSUFFICIEN [facility]ERGENCY CY FOLLOW SERVICES [facility] SURGERY 31968 UNSPECIFIED 05-15-2008 [place] [facility]ICAL SYNOVIT[place] [address] EXTRINSIC 11-02-2007 [facility] DOSE ASTHMA, PHARMACY UNSPECIFIED 22978 OSTEOARTHRO 07-13-2007 MAKSIM II, SIS UNSPEC NESHA A WHETHER GEN/LOC ANK&FOOT 80225 TENOSYNOVIT 07-13-2007 MAKSIM II, IS OF FOOT NESHA A AND ANKLE E86.0 DEHYDRATION I45.10 UNSPECIFIED RIGHT BUNDLE-BRAN CH BLOCK J18.9 PNEUMONIA, UNSPECIFIED ORGANISM J40 BRONCHITIS, NOT SPECIFIED ACUTE OR CHRONIC J84.114 ACUTE INTERSTITIA L PNEUMONITIS J84.9 INTERSTITIA [...] SerPl-mCnc (09-22-2016 14:15) NT-proB 492 0-899 complet JAVA 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 complet PLATELE 013 4 ed T 22:55 VOLUME Granulo -30-2 68.9 % 37.0-80 complet cytes 013 .0 ed Fr Bld 22:55 Auto LYMPH % -30-2 22.1 % 10-50 complet 013 ed 22:55 Monocyt -30-2 7.8 % 1.7-9.3 complet es Fr 013 [...] Auto ARTERIAL BLOOD GAS (02-26-2013 22:53) ARTERIA -30-2 7.49 7.35-7. complet L PH 013 MMOL/L 45 ed 22:53 ARTERIA 34.3 35.0-45 complet L PCO2 013 MMHG .0 ed 22:53 ARTERIA 85.0 80-100 complet L PO2 013 MMHG ed 22:53 ARTERIA 25.8 22.0-26 complet L HCO3 013 MMOL/L .0 ed 22:53 ARTERIA 26.8 23-27 complet L TCO2 013 MMOL/L [...] mg/dL 1 ed SerPl-m 15:25 Cnc Prot 09-04-2 8.1 6.4-8.2 complet SerPl-m 013 gm/dL ed Cnc 15:25 Albumin -04-2 2.8 3.4-5.0 complet 013 gm/dL ed SerPl-m 15:25 Cnc Globuli 01-31-2 5.3 1.3-3.2 complet n 013 gm/dL ed Ser-mCn 15:25 c Albumin 04-2 0.5 UNK 1.1-1.8 complet /Glob 013 ed SerPl-m 15:25 Rto Bilirub 01-31-2 0.6 0.2-1.0 complet 013 mg/dL ed SerPl-m 15:25 Cnc AST 04-2 22 U/L 15-37 complet SerPl-c 013 ed Cnc 15:25 ALT 04-2 33 U/L 30-65 complet SerPl-c 013 ed Cnc 15:25 ALP 04-2 85 U/L 50-136 complet SerPl-c 013 ed Cnc 15:25 CBC with AUTO DIFF (01-31-2013 15:25) WBC # -04-2 10.3 4.8-10. complet Bld 013 K/MM3 8 ed Auto 15:25 RBC # 09-04-2 4.47 4.6-6.2 complet Bld 013 M/mm3 ed Auto 15:25 Hgb -04-2 12.7 14.1-18 complet Bld-mCn 013 g/dL .0 ed c 15:25 Hct Fr 01-31-2 39.5 % 42.0-52 complet Bld 013 .0 ed 15:25 MCV RBC 04-2 88.5 fl 82.2-97 complet 013 .8 ed 15:25 MCH RBC -04-2 28.3 pg 27-31.2 complet Qn 013 ed Auto 15:25 MEAN 04-2 32.0 31.8-35 complet CORPUSC 013 g/dl .4 ed ULAR 15:25 HGB CONC RDW RBC 04-2 16.6 % 11.5-17 complet Auto 013 .5 ed 15:25 Platele 01-31-2 251 142-424 complet t Bld 013 K/mm3 ed Ql 15:25 Manual MEAN 09-04-2 7.8 fl 7.4-10. complet PLATELE 013 4 ed T 15:25 VOLUME Granulo 09-04-2 63.2 % 37.0-80 complet cytes 013 .0 ed Fr Bld 15:25 Auto LYMPH % 09-04-2 25.1 % 10-50 complet 013 ed 15:25 Monocyt 09-04-2 6.2 % 1.7-9.3 complet es Fr 013 ed Bld 15:25 Auto Eosinop 09-04-2 4.7 % 0.1-12. complet hil Fr 013 0 ed Bld 15:25 Auto Basophi 09-04-2 0.9 % 0.1-2.0 complet ls Fr 013 ed Bld 15:25 Auto Granulo 09-04-2 6.5 1.3-8.0 complet cytes # 013 K/mm3 ed Bld 15:25 Auto Lymphoc 09-04-2 2.6 0.7-4.5 complet ytes Fr 013 K/mm3 ed Bld 15:25 Auto Monocyt 09-04-2 0.6 0.1-1.0 complet es # 013 K/mm3 ed Bld 15:25 Auto Eosinop 09-04-2 0.5 0.0-0.4 complet hil # 013 K/mm3 ed Bld 15:25 Auto Basophi 09-04-2 0.1 0-0.2 complet ls # 013 K/MM3 [...] SerPl-m 013 gm/dL ed Cnc 15:00 Albumin 3.1 3.4-5.0 complet 013 gm/dL ed SerPl-m [...] K/MM3 8 ed Auto 15:00 RBC # 01-05- 4.88 4.6-6.2 complet Bld 013 M/mm3 ed Auto 15:00 Hgb 13.5 14.1-18 complet Bld-mCn 013 g/dL .0 ed c 15:00 Hct Fr 41.4 % 42.0-52 complet Bld 013 .0 ed 15:00 MCV RBC 84.9 fl 82.2-97 complet 013 .8 ed 15:00 MCH RBC 27.6 pg 27-31.2 complet Qn 013 ed Auto 15:00 MEAN 32.5 31.8-35 complet CORPUSC 013 g/dl .4 ed ULAR 15:00 HGB CONC RDW RBC 2 15.5 % 11.5-17 complet Auto 013 .5 ed 15:00 Platele 2 292 142-424 complet t Bld 013 K/mm3 ed Ql 15:00 Manual MEAN 7.4 fl 7.4-10. complet PLATELE 013 4 ed T 15:00 VOLUME Granulo 57.3 % 37.0-80 complet cytes 013 .0 ed Fr Bld 15:00 Auto LYMPH % 2 32.4 % 10-50 complet 013 ed 15:00 Monocyt 5.9 % 1.7-9.3 complet es Fr 013 ed Bld 15:00 Auto Eosinop 3.6 % 0.1-12. complet hil Fr 013 0 ed Bld 15:00 Auto Basophi 01-05-2 0.8 % 0.1-2.0 complet ls Fr 013 ed Bld 15:00 Auto Granulo 2 4.9 1.3-8.0 complet cytes # 013 K/mm3 ed Bld 15:00 Auto Lymphoc 01-05-2 2.8 0.7-4.5 complet ytes Fr 013 K/mm3 [...] HOME 85%/>02 MEDICAL [facility] FL[facility] PRTBLE E0431 [facility] GASEOUS 4 HOME HOME O2 SYS MEDICAL MEDICAL RENT; EQUIPME EQUIPOH FLWMTR HUMIDFR&M ASK SPMTRY 35272 [place] W/VC 3 MEDICAL NUVIA EXPIRATOR SERV Y RACHEL FOUNDATIO W/WO MXML VOL VNTJ PULMONARY 49240 [facility] STRESS 3 Y Y TESTING [facility] SIMPLE O2 CONC 1 E1390 [facility] VIERA DEL PORT 3 HOME HOME 85%/>02 MEDICAL MEDICAL CONC AT EQUIPME EQUIPME PRSC FLW RATE PRTBLE E0431 [facility] GASEOUS 3 HOME HOME O2 SYS MEDICAL MEDICAL RENT; EQUIPME EQUIPME FLWMTR HUMIDFR&M ASK NEBULIZER E0570 [facility] WITH 3 HOME HOME COMPRESSO MEDICAL MEDICAL R EQUIPME EQUIPME THERAPEUT 83389 [place] [facility] [place] P[place] 1/> 3 [facility]OS[facility]OS[facility] AREAS INC INC EACH 15 MIN EXERCISES E-STIM G0283 [place] [facility] 1/> AREAS 3 MEM HOS[facility] MEM HOSP OTH THAN INC INC WND CARE PART TX PLAN E-STIM G0283 [place] [facility] 1/> AREAS 3 MEM HOSP MEM HOSP OTH THAN INC INC WND CARE PART TX PLAN THERAPEUT 27909 [place] [facility] [place] [facility] 1/> 3 MEM HOS[facility] MEM HOS[facility] AREAS INC INC EACH 15 MIN EXERCISES APPLICATI 06447 [place] [facility] ON 3 [facility]OS[facility] MEM [facility]OS[facility] MODALITY INC INC 1/> AREAS HOT/COLD PACKS CONTINUOU E0601 [facility] VIERA S 3 HOME HOME POSITIVE MEDICAL MEDICAL AIRWAY EQUIPME EQUIPME PRESSURE DEVICE THERAPEUT 03884 [place] [facility] [place] 1/> 3 MEM HOS[facility] MEM HOSP AREAS INC INC EACH 15 MIN EXERCISES E-STIM G0283 [place] [facility] 1/> AREAS 3 MEM HOS[facility] MEM HOSP OTH THAN INC INC WND CARE PART TX PLAN SPUTUM 73799 [place] [facility] OBTAINING 3 [facility]OS[facility]OS[facility] SPEC INC INC AEROSOL INDUCED TX SPX CUL BACT 26107 [place] [facility] XCPT 3 [facility] HOS[facility]OS[facility] URINE INC INC BLOOD/STO OL AEROBIC ISOL SMR PRIM 73000 [place] [facility] SRC 3 [facility] HOS[facility] MEM [facility]OS[facility] GRAM/GIEM INC INC SA STAIN BCT FUNGI/LEONIDES L THERAPEUT 45262 [place] [facility] [place] 1/> 3 MEM HOS[facility] MEM HOSP AREAS INC INC EACH 15 MIN EXERCISES E-STIM G0283 [facility] 1/> AREAS 3 MEM HOS[facility] MEM HOSP OTH THAN INC INC WND CARE PART TX PLAN SBSQ [address]192 [place] [address] MEDICAL PRE CARE/DAY [place] [address] [place] [address] [place] ARINA NADINE HEAD/BRAI 3 MEDICAL N W/O SERV CONTRAST FOUNDATIO MATERIAL RADIOLOGI 89493 [place] [facility] K[facility] C EXAM 3 MEDICAL CHEST 2 SERV VIEWS FOUNDATIO FRONTAL&L ATERAL RADIOLOGI 66451 [place] [facility] C EXAM 3 MEDICAL CHEST 2 SERV VIEWS FOUNDATIO FRONTAL&L ATERAL SBSQ 52796 [place] [address] MEDICAL PRE CARE/DAY SERV [place] [address] [facility] INFUSION 3 [facility]OS[facility] THERAPY INC INC PROPHYLAX IS/DX EA HOUR INITIAL 29916 [place] [address] MEDICAL PRE CARE/DAY [place] [address] [facility] INFUSION 3 [facility] THER INC INC PROPH ADDL SEQUENTIA L TO 1 HR AMB A0427 [facility] SERVICE 3 AMBULANCE AMBULANCE ALS SERVICE SERVICE EMERGENCY TRANSPORT LEVEL 1 RADIOLOGI 46492 IN AYOOB AND Candice 3 MEDICAL EXAMINATI SERV ON CHEST FOUNDATIO [place]ING[place] FRONTAL GROUND A0425 GENERAL ACUTE HOSPITALEAGE 3 AMBULANCE AMBULANCE [place] [address] [place] ST[place] INFUSION 3 MEM HOS[facility]OS[facility] THERAPY/P INC INC ROPHYLAXI S /DX 1ST TO 1 HR CUL BACT 99973 [place] [facility] AEROBIC 3 [facility]OS[facility] ADDL INC INC METHS DEFINITIV E EA ISOL SUSCEPTIB 02881 [facility] LTY STDY [address] [facility] ANTIMICRB INC INC IAL MICRO/AGA R DILUTJ CUL BACT 89721 [place] [facility] XCPT 3 [facility] HOS[facility]OS[facility] URINE INC INC BLOOD/STO OL AEROBIC ISOL IAADI 08651 [place] [facility] INFLUENZA 3 [facility] HOS[facility] B VIRUS INC INC SMR PRIM 43323 [place] [facility] SRC [address] [facility] GRAM/GIEM INC INC SA STAIN BCT FUNGI/LEONIDES L IAADI 83278 [place] [facility] INFFLUENZ 3 [facility] HOS[facility]OS[facility] A A VIRUS INC INC E-STIM [id number] [place] 1/> AREAS 3 [facility] OTH THAN INC INC WND CARE PART TX PLAN CULTURE 41117 [place] [facility] BACTERIAL 3 [facility] BLOOD INC INC AEROBIC W/ID ISOLATES CRITICAL 53839 [place] CARE 3 [facility] ILL/INJUR INC INC ED PATIENT INIT 30-74 MIN BLOOD 78602 [place] GASES ANY 3 [facility] INC INC COMBINATI ON PH PCO2 PO2 CO2 HCO3 RADIOLOGI 35071 [place] [facility] C [address] [facility] [facility] EXAMINATI INC INC ON CHEST [place] FRONTAL BLOOD 01389 [place] COUNT [address] [facility] COMPLETE INC INC AUTO&[place] [address] [place] TROPONIN [address] [facility] QUANTITAT INC INC COURTNEY CREATINE 04959 [place] KINASE MB [address] [facility] FRACTION INC INC ONLY ECG 25183 [place] ROUTINE 3 [facility] ECG INC INC W/LEAST 12 LDS TRCG ONLY W/O I&R ECG 01743 [place] ROUTINE 3 [facility] W/LEAST P 12 LDS I&R ONLY BASIC 61273 [place] METABOLIC [address] [facility] PANEL INC INC CALCIUM TOTAL PHYSICAL 16040 [place] [facility] THERAPY [address] [facility] EVALUATIO INC INC N THERAPEUT 11835 [place] IC PX 1/> [address] [facility] AREAS INC INC EACH 15 MIN EXERCISES CREATINE 66356 [place] KINASE [address] [facility] [address] [facility] TOTAL INC INC COMPREHEN 81826 [facility] SIVE 3 [facility] METABOLIC [facility] PANEL BLOOD 32420 [facility] COUNT 3 [facility] COM[facility]TE [facility] [facility] AUTOMATED C-REACTIV 56475 [facility] E PROTEIN 3 [facility] COLLECTIO 15341 [facility] N VENOUS 3 [facility] BLOOD [facility] VENIPUNCT URE O2 CONC 1 E1390 AYLIN VIERA DEL [place] 3 HOME HOME 85%/>02 MEDICAL MEDICAL CONC AT EQUIPME EQUIPME PRSC FLW RATE NEBULIZER E0570 A[facility] VIERA WITH 3 HOME HOME COMPRESSO MEDICAL MEDICAL R EQUIPME EQUIPME PRTBLE E0431 AYLIN VIERA GASEOUS 3 HOME HOME O2 SYS MEDICAL MEDICAL RENT; EQUIPME EQUIPME FLWMTR HUMIDFR&M ASK SPMTRY 25999 [facility] W/VC 3 Y Y EXPIRATOR [facility] Y RACHEL [place] [address] [facility] DIFFUSING 3 Y Y CAPACITY [facility] PLETHYSMO [address] [place] GRAPHY 3 MEDICAL MEDICAL LUNG SERV SERV VOLUMES FOUNDATIO FOUNDATIO W/WO AIRWAY RESIST GASES 34026 [facility] BLOOD PH 3 Y Y DIRECT [facility] ANSHU XCPT PULSE OXIMITRY PULMONARY [address] [place] KET STRESS 3 MEDICAL TESTING SERV SIMPLE FOUNDATIO CT THORAX 96660 [facility] W/O 3 Y Y CONTRAST [facility] MATERIAL ARTERIAL 39083 [facility] PUNCTURE 3 Y Y WITHDRAWA [facility] L BLOOD DX CONTINUOU E0601 AYLIN VIERA S 3 HOME HOME POSITIVE MEDICAL MEDICAL AIRWAY EQUIPME EQUIPME [facility] [address] [place] SEETH[place] DISCHARGE 3 MEDICAL AJU HAZEL DAY SERV MANAGEMEN FOUNDATIO T 30 MIN/< CUL BACT 16612 [place] [facility] XCPT 3 [facility] URINE INC INC BLOOD/STO [place] [address] [place]ES[place] ONTIVEROS ANGIOGRAP 3 MEDICAL HY CHEST SERV W/CONTRAS FOUNDATIO T/NONCONT RAST CULTURE 24439 [place] [facility] BACTERIAL 3 [facility] BLOOD INC INC AEROBIC W/ID ISOLATES SUSCEPTIB 35394 [place] LTY STDY [address] [facility] ANTIMICRB INC INC IAL MICRO/AGA R DILUTJ CUL BACT 97199 [place] AEROBIC [address] [facility] ADDL INC INC METHS DEFINITIV E EA ISOL SMR PRIM 03628 [place] SRC [address] [facility] GRAM/GIEM INC INC SA STAIN BCT FUNGI/LEONIDES L RADIOLOGI 41820 TARAS ONTIVEROS C EXAM 3 MEDICAL CHEST 2 SERV VIEWS FOUNDATIO FRONTAL&L ATERAL BLOOD 82267 [place] COUNT [address] [facility] COMPLETE INC INC AUTO&AUTO DIFRNTL WBC RADIOLOGI 48063 [place] C [address] [facility] EXAMINATI INC INC ON CHEST SINGLE VIEW FRONTAL GROUND A0425 [facility] MILEAGE 3 AMBULANCE AMBULANCE PER SERVICE SERVICE STATUTE MILE AMBULANCE A0429 [facility] SERVICE 3 AMBULANCE AMBULANCE BLS SERVICE SERVICE EMERGENCY TRANSPORT PRESSURIZ 72016 [place] STEVEN[place] ED/NONPRE [address] [facility] SSURIZED INC INC INHALATIO N TREATMENT COMPREHEN 07800 [place] STEVENSON SIVE [address] [facility] METABOLIC INC INC PANEL ECG 82973 [place] ROUTINE [address] [facility] ECG INC INC W/LEAST 12 LDS TRCG ONLY W/O I&R THER 52091 [place] PROPH/DX 3 [facility] NJX IV INC INC PUSH SINGLE/1S T SBST/DRUG ECG 22885 TARAS ROQUE CHI ROUTINE 3 MEDICAL ECG SERV W/LEAST FOUNDATIO 12 LDS I&R ONLY ADMN SET A7003 YOUR YOUR SM VOL 3 PHARMACY PHARMACY NONFILTR [employer] PNEUMAT NEBULIZR DISPBL PHRM Q0513 YOUR YOUR DISPENSIN 3 PHARMACY PHARMACY G FEE [employer] INHALATIO N RX; PER 30 DAYS ALBUTEROL J7620 YOUR YOUR TO 2.5 3 PHARMACY PHARMACY [employer] IPRATROPI UM BROM TO 0.5 MG O2 CONC 1 E1390 AYLIN VIERA DEL PORT 3 HOME HOME 85%/>02 MEDICAL MEDICAL CONC AT EQUIPME EQUIPME PRSC FLW RATE PRTBLE E0431 AYLIN VIERA GASEOUS 3 HOME HOME O2 SYS MEDICAL MEDICAL RENT; EQUIPME EQUIPME FLWMTR HUMIDFR&M ASK NEBULIZER E0570 AYLIN VIERA WITH 3 HOME HOME COMPRESSO MEDICAL MEDICAL R EQUIPME EQUIPME RADIOLOGI 72227 [place] C EXAM [address] [facility] CHEST 2 INC INC VIEWS FRONTAL&L ATERAL CONTINUOU E0601 AYLIN VIERA S 3 HOME HOME POSITIVE MEDICAL MEDICAL AIRWAY EQUIPME EQUIPME PRESSURE DEVICE COMPREHEN 22770 [place] SIVE 3 [facility] METABOLIC INC INC PANEL CREATINE 13023 [place] COLEMAN KINASE MB 3 [facility] FRACTION INC INC ONLY ECG 97452 [place] ROUTINE 3 [facility] ECG INC INC W/LEAST 12 LDS TRCG ONLY W/O I&R 3D 38883 [place] RENDERING 3 [facility] W/INTERP INC INC & POSTPROCE SS SUPERVISI ON CREATINE 04948 [place] KINASE 3 [facility] TOTAL INC INC RHYTHM 53505 [place] ECG 1-3 3 [facility] LEADS INC INC TRACING ONLY W/O I&R ECG 36572 [place] ORDOÑEZ JR ROUTINE 3 [facility] W/LEAST P 12 LDS I&[place] [address] [place] HEAD/BRAI 3 [facility] N W/O INC INC CONTRAST MATERIAL BLOOD 82932 [place] COLE[place] COUNT 3 [facility] COMPLETE INC INC AUTO&[place] [address] [place] COLE[place] TROPONIN 3 [facility] QUANTITAT INC INC COURTNEY PRTBLE E0431 [...] MEDICAL RENT; EQUIPME EQUIPME FLWMTR HUMIDFR&M ASK PUL G0424 [place] REHAB 3 [facility] INCL EXER INC INC 1 HR PER SESS TO 2 PER DAY CONTINUOU E0601 AYLIN VIERA S 3 HOME HOME POSITIVE MEDICAL MEDICAL AIRWAY EQUIPME EQUIPME PRESSURE DEVICE PULM G0424 [place] REHAB 3 [facility] INCL EXER INC INC 1 HR PER SESS TO 2 PER DAY PUL G0424 [place] REHAB 3 [facility] INCL EXER INC INC 1 HR PER SESS TO 2 PER DAY PUL G0424 [place] REHAB 3 [facility] INCL EXER INC INC 1 HR PER SESS TO 2 PER DAY PUL G0424 [place] [facility] REHAB 3 [facility] INCL EXER INC INC 1 HR PER SESS TO 2 PER DAY PUL G0424 [place] [facility] REHAB 3 [facility] INCL EXER INC INC 1 HR PER SESS TO 2 PER DAY PUL G0424 [place] REHAB 3 [facility] INCL EXER INC INC 1 HR PER SESS TO 2 PER DAY C-REACTIV 82696 LAB HEIDI LAB HEIDI E PROTEIN 3 AMERIC [employer] HOLDING HOLDING BLOOD 22017 LAB HEIDI LAB HEIDI COUNT 3 AMERIC AMERIC COMPLETE HOLDING HOLDING AUTOMATED COMPREHEN 91047 LAB HEIDI LAB HEIDI SIVE 3 AMERIC AMERIC METABOLIC HOLDING HOLDING PANEL COLLECTIO 74427 LAB HEIDI LAB HEIDI N VENOUS 3 AMERIC AMERIC BLOOD HOLDING HOLDING VENIPUNCT URE PULM G0424 [place] CO[facility]MAN REHAB 3 [facility] INCL EXER INC INC 1 HR PER SESS TO 2 PER DAY PULM G0424 [place] REHAB 3 [facility]OS[facility] INCL EXER INC INC 1 HR PER SESS TO 2 PER DAY O2 CONC 1 E1390 AYLIN VIERA DEL [...] PER SESS TO 2 PER DAY POLYSOM 36033 VIRGIINA COLEMAN 6/>YRS 3 MEM HOS[facility] MEM HOSP [...] HOME HOME R MEDICAL MEDICAL EQUIPME EQUIPME NEBULIZER E0570 AYLIN VIERA WITH 3 HOME HOME COMPRESSO MEDICAL MEDICAL R EQUIPME EQUIPME PRTBLE E0431 AYLIN VIERA GASEOUS 3 HOME HOME O2 SYS MEDICAL MEDICAL RENT; EQUIPME EQUIPME FLWMTR HUMIDFR&M ASK BRNCDILAT 11672 [place] RSPSE 3 [facility]OS[facility] SPMTRY INC INC PRE&POST- BRNCDILAT ADMN O2 CONC 1 E1390 AYLIN VIERA DEL PORT 3 HOME HOME 85%/>02 MEDICAL MEDICAL CONC AT EQUIPME EQUIPME PRSC FLW RATE GAS 68522 [place] DILUT/WAS 3 [facility] HOUT LUNG INC INC VOL W/WO DISTRIB VENT&[place] [address] [facility] UNIVERS FOLIC 3 Y Y ACID RBC [facility] COMPREHEN 05657 UNIVERS UNIVERSIT SIVE 3 Y Y METABOLIC [facility] PANEL CYANOCOBA 54284 [facility] CLARISSE 3 Y Y VITAMIN [facility] B-12 ANTINUCLE 60051 UNIVERS LAB HEIDI AR 3 Y [facility] HOLDING S [place] FLUORESCE 28327 [facility] NT 3 Y Y NONNFCT HOSPITAL HOSPITAL AGT ANTB SCREEN EA ANTIBODY RHEUMATOI 19296 [facility]IV[facility] D FACTOR 3 Y Y QUANTITAT [facility] COURTNEY IRON 22460 [facility]IT [facility]IVERS BINDING 3 Y Y CAPACITY [facility] BLOOD 49612 [facility] UNIVERS COUNT 3 Y Y COMPLETE [facility] AUTO&AUTO DIFRNTL WBC PREALBUMI 82709 [facility] N 3 Y Y HOSPITAL [facility] RADIOLOGI 75842 [place] ISA SARAH C EXAM 3 MEDICAL CHEST 2 SERV VIEWS FOUNDATIO FRONTAL&L ATERAL COLLECTIO 27452 [facility] UNIVERS N VENOUS 3 Y Y BLOOD [facility] VENIPUNCT URE STANDARD K0001 AYLIN VIERA WHEELCHAI 3 HOME HOME R MEDICAL MEDICAL EQUIPME EQUIPME PRTBLE E0431 AYLIN VIERA GASEOUS 3 HOME HOME O2 SYS MEDICAL MEDICAL RENT; EQUIPME EQUIPME FLWMTR HUMIDFR&M ASK O2 CONC 1 E1390 AYLIN VIERA DEL PORT 3 HOME HOME 85%/>02 MEDICAL MEDICAL CONC AT EQUIPME EQUIPME PRSC FLW RATE NEBULIZER E0570 AYLIN VIERA WITH 3 HOME HOME COMPRESSO MEDICAL MEDICAL R EQUIPME EQUIPME POLYSOM 52240 [place] COLEMAN 6/>YRS 3 MEM HOS[facility]OS[facility] SLEEP INC INC W/CPAP 4/> ADDL [facility] 31301 [facility] 3 MEDICAL JAG DAY SERV MANAGEMEN FOUNDATIO T 30 MIN/< SBSQ 61179 [facility] 3 MEDICAL JAG CARE/DAY SERV 25 FOUNDATIO MINUTES RADEX ABD 95285 [place] DISANTIS COMPL 3 MEDICAL SIDDHARTHA AQT ABD SERV W/S/E/D FOUNDATIO VIEWS 1 VIEW CH RADEX ABD 96136 [place] JESICA JAM COMPL 3 MEDICAL AQT ABD SERV W/S/E/D FOUNDATIO VIEWS 1 VIEW INITIAL 21209 [facility] 3 MEDICAL MARION CARE/DAY [place] [address] [place] SOHEILA ABDOMINAL 3 MEDICAL DEENA REAL [...] HOME COMPRESSO MEDICAL MEDICAL R EQUIPME EQUIPME SEAT E0156 AYLIN VIERA ATTACHMEN 3 HOME HOME T WALKER MEDICAL MEDICAL EQUIPME EQUIPME WALKER E0143 AYLIN VIERA FOLDING 3 HOME HOME WHEELED MEDICAL MEDICAL ADJUSTABL EQUIPME EQUIPME E/FIXED HEIGHT DUP-SCAN 27275 JERRI JERRI XTR VEINS 3 ESPERANZA ESPERANZA COMPLETE BILATERAL STUDY RADIOLOGI 48844 [facility] [place] KOSTELIC C EXAM 3 RADIOLOGY MONTSERRAT CHEST 2 VIEWS FRONTAL&L ATERAL RADIOLOGI 27887 [facility] [place] NOEL C EXAM 3 RADIOLOGY GODFREY CHEST 2 VIEWS FRONTAL&L ATERAL MRI BRAIN 34097 [place] LUKINS BRAIN 3 MEDICAL TIERRA STEM W/O SERV CONTRAST FOUNDATIO MATERIAL SBSQ 52217 [facility] 3 E CARE CARE/DAY CTR OF [address] [facility] [address] [place] [facility] INCL 3 MEDICAL OSCAR FLUOR SERV GDNCE DX FOUNDATIO W/CELL WASHG SPX SBSQ 28584 [facility] 3 E CARE CARE/DAY CTR OF 25 THE B MINUTES CLOSED 3324 [facility] BIOPSY OF 3 Y Y BRONCHUS [facility] VENOUS 3893 [facility] CATHETERI 3 Y Y [facility] NOT ELSEWHERE CLASSIFIE D ECG 21246 [place] ROQUE CHI ROUTINE 3 MEDICAL ECG SERV W/LEAST FOUNDATIO 12 LDS I&R ONLY ECG 34010 TARAS HU ROUTINE 3 MEDICAL NAN ECG SERV W/LEAST FOUNDATIO 12 LDS I&R ONLY CONTINUOU E0601 AYLIN Vieira 2 HOME HOME POSITIVE MEDICAL MEDICAL AIRWAY EQUIPME EQUIPME PRESSURE DEVICE STANDARD K0001 AYLIN ROSALES 2 HOME HOME R MEDICAL MEDICAL EQUIPME EQUIPME THORACOSC 3320 [facility] LUNG 2 Y Y [facility] ECG 69675 TARAS NEVAREZ CHI ROUTINE 2 MEDICAL ECG SERV W/LEAST FOUNDATIO 12 LDS I&R ONLY ECG 74385 TARAS ROSENBERG ROUTINE 2 MEDICAL ECG SERV W/LEAST FOUNDATIO 12 LDS I&R ONLY ECG 95483 TARAS NEVAREZ CHI ROUTINE 2 MEDICAL ECG SERV W/LEAST FOUNDATIO 12 LDS I&R ONLY ECG 08340 TARAS HU ROUTINE 2 MEDICAL NAN ECG SERV W/LEAST FOUNDATIO 12 LDS I&R ONLY INSERTION 9604 [facility] 2 Y Y PSYCHIATRIC EAL TUBE CONT 9671 [facility] 2 Y Y [facility] < 96 CONSECUTI VE HOURS RADIOLOGI 05046 [facility] 2 MEDICAL TIERRA EXAMINATI IMAGING ON CHEST ASS SINGLE VIEW FRONTAL RADIOLOGI 20999 [place] [facility] C 2 MEDICAL TIERRA EXAMINATI IMAGING ON CHEST ASS SINGLE VIEW FRONTAL ALBUTEROL J7620 YOUR YOUR TO 2.5 2 PHARMACY PHARMACY [employer] [facility] IPRATROPI UM BROM TO 0.5 MG ADMN SET A7003 YOUR YOUR SM VOL 2 PHARMACY PHARMACY NONFILTR LLC LLC PNEUMAT NEBULIZR DISPBL PHARM G0333 YOUR YOUR DISPEN 2 PHARMACY PHARMACY FEE INHAL [employer] RX; INITIAL 30-DAY SUPPLY ECG 47570 POPPY KEENE ROUTINE 2 EMERGENCY VENUS ECG SERVICES W/LEAST 12 LDS I&R ONLY RADIOLOGI 50332 [facility] EXAM 2 MEDICAL TIERRA CHEST 2 IMAGING VIEWS ASS FRONTAL&L ATERAL BLOOD 23985 [facility] OCCULT 2 N N PEROXIDAS [facility] E ACTV HOSPITA HOSPITA QUAL FECES 1-3 SPEC SMR PRIM 21971 [facility] SRC CPLX 2 N N SPEC [facility] STAIN HOSPITA HOSPITA OVA&CHAD ITS OVA&CHAD 71468 [facility] ITES 2 N N DIRECT [facility] SMEARS HOSPITA HOSPITA CONCENTRA TION & ID SMR PRIM 48871 [facility] SRC 2 N N GRAM/GIEM [facility] SA STAIN HOSPITA HOSPITA BCT FUNGI/LEONIDES L BLOOD 97330 CULBERTSO CULBERTSO OCCULT 2 N KALYAN N KALYAN PEROXIDAS E ACTV QUAL FECES 1 DETER BLOOD 30380 LAB HEIDI LAB HEIDI COUNT 2 [employer]IC [employer] COMPLETE HOLDING HOLDING AUTOMATED C-REACTIV 19996 LAB HEIDI LAB HEIDI E PROTEIN 2 [employer] COMPREHEN 27614 LAB HEIDI LAB HEIDI SIVE 2 AMERIC AMERIC METABOLIC HOLDING HOLDING PANEL COLLECTIO 29849 LAB HEIDI LAB HEIDI N VENOUS 2 AMERIC AMERIC BLOOD HOLDING HOLDING VENIPUNCT URE COLLECTIO 37075 LAB HEIDI LAB HEIDI N VENOUS 1 AMERIC AMERIC BLOOD HOLDING HOLDING VENIPUNCT URE C-REACTIV 95334 LAB HEIDI LAB HEIDI E PROTEIN 1 [employer]IC [employer] HOLDING COMPREHEN 29517 LAB HEIDI LAB HEIDI SIVE 1 AMERIC AMERIC METABOLIC HOLDING HOLDING PANEL BLOOD 33038 LAB HEIDI LAB HEIDI COUNT 1 AMERIC [employer] COMPLETE HOLDING HOLDING AUTOMATED RADEX 14319 [place] K[place] JAM ANKLE 1 MEDICAL COMPLETE SERV MINIMUM 3 FOUNDATIO VIEWS WALKING L4360 [facility] BOOT 1 PNEUMATC &/ VACUUM PREFAB CUSTM FIT COLLECTIO 56618 [facility] N VENOUS 1 [employer] BLOOD VENIPUNCT URE TRANSFERA 24859 [facility] SE 1 [employer] ASPARTATE AMINO AST SGOT LIPID 34399 [facility] PANEL 1 [employer] CAST Q4038 TARAS MARTINEZ SUPPLIES 1 MEDICAL KAMALA SHORT LEG SERV CAST FOUNDATIO ADULT FIBERGLAS S RADIOLOGI 29488 [facility] C 1 Y Y [facility] ON FOOT 2 VIEWS APPLICATI 63510 [place] ON SHORT 1 MEDICAL MEDICAL LEG CAST SERV SERV WALKING/A FOUNDATIO FOUNDATIO MBULATORY APPLICATI 16775 [place] ON SHORT 1 MEDICAL MEDICAL LEG CAST SERV SERV BELOW FOUNDATIO FOUNDATIO KNEE-TOE CAST Q4038 TARAS MARTINEZ SUPPLIES 1 MEDICAL [place]AM[place] SHORT LEG SERV CAST FOUNDATIO ADULT FIBERGLAS S PHYSICAL 76681 [facility] THERAPY 0 Y [facility] G0378 [facility] OBSERVATI 0 Y Y ON HOSPITAL HOSPITAL SERVICE PER HOUR ARTHRODES 34179 TARAS MARTINEZ IS 0 MEDICAL [place]AM[place]A SUBTALAR SERV FOUNDATIO ANESTHESI 92607 TARAS GERALD A ON BONY 0 [place]ICAL [place] [address] TARAS GERALD GUIDANCE 0 MEDICAL JUS NEEDLE SERV PLACEMENT FOUNDATIO IMG S&I FLUOROSCO 43050 [facility] PY SPX >1 0 Y [facility] PHYS/QHP TIME BONE 85529 TARAS MARTINEZ GRAFT ANY 0 MEDICAL [place]AM[place] DONOR SERV AREA FOUNDATIO MAJOR/LAR GE INJECTION 82325 TARAS MADELAINECOKAVEH 0 MEDICAL JUS ANESTHETI SERV C AGENT FOUNDATIO SCIATIC NRV SINGLE INJECTION 91655 TARAS MADELAINECOKAVEH 0 MEDICAL JUS ANESTHETI SERV C AGENT FOUNDATIO FEMORAL NERVE SINGLE CUL BACT 34512 LAB HEIDI LAB HEIDI XCPT 0 AMERIC AMERIC URINE HOLDING HOLDING BLOOD/STO OL AEROBIC ISOL SMR PRIM 21368 LAB HEIDI LAB HEIDI SRC 0 AMERIC AMERIC GRAM/GIEM HOLDING HOLDING SA STAIN BCT FUNGI/LEONIDES L CULTURE 32539 LAB HEIDI LAB HEIDI BACTERIAL 0 AMERIC AMERIC ANY HOLDING HOLDING SOURCE ANAEROBIC ISO&ID PRESSURIZ 02848 [place] COLEMAN ED/NONPRE 0 [facility]OS[facility] SSURIZED INC INC INHALATIO N TREATMENT RADIOLOGI 01830 [place] C 0 [facility]OS[facility] EXAMINATI INC INC [place] [address] [place] COLEMAN TROPONIN 0 [facility] HOS[facility]OS[facility] QUANTITAT INC INC COURTNEY BLOOD 40887 [place] COUNT 0 [facility]OS[facility] COMPLETE INC INC AUTO&AUTO DIFRNTL WBC CREATINE 02476 [place] STEVENSON KINASE MB 0 [facility] HOS[facility]OS[facility] FRACTION INC INC ONLY ECG 38776 [place] COLE[place] ROUTINE 0 [facility] ECG INC INC W/LEAST 12 LDS TRCG ONLY W/O I&R CREATINE 31352 [place] KINASE 0 [facility]OS[facility] TOTAL INC INC THER 38764 [place] COLE[place] PROPH/DX 0 [facility] NJX IV INC INC PUSH SINGLE/1S T SBST/DRUG BASIC 06966 [place] COLEMAN METABOLIC 0 [facility] PANEL INC INC CALCIUM TOTAL ECG 43781 [place] MCKEMIE ROUTINE 0 [facility] W/LEAST P 12 LDS I&R ONLY DUP-SCAN 33528 VIRGINIASULEMAN COLEMAN XTR VEINS [address] [facility] HOSP INC INC UNILATERA L/LIMITED STUDY 3D 20399 V[place] RENDERING [address] [facility] HOSP INC INC W/INTERP& POSTPROC DIFF [place] LOWER [address] [place] COLEMAN EXTREMITY [address] [facility] W/O INC INC CONTRAST MATERIAL INJECTION J1040 MONICA ANDERSON 9 N, GEREMIAS DOUGHERTY METHYLPRE DNISOLONE ACETATE 80 MG BLOOD 93913 MONICA ANDERSON OCCULT 9 N, GEREMIAS DOUGHERTY PEROXIDAS E ACTV QUAL FECES 1 DETER MYOCRD 80261 [facility] PRFUJ STD 9 N N [facility] [place] [place] QUAL/RENEE STD TECHNETIU A9500 [facility] TC-99M 9 N N [facility] COMMUNITY DX PER HOSPITAL HOSPITAL STUDY DOSE CV STRS 08924 MONICA ANDERSON TST 9 N, GEREMIAS DOUGHERTY XERS&/OR RX CONT ECG W/O I&R CV STRS 23559 [facility] TST 9 N N XERS&/OR COMMUNITY COMMUNITY RX CONT HOSPITAL HOSPITAL ECG TRCG ONLY MYOCRD 86988 DAX AVENDANO, KRISTOFERUJ IMG 9 N [facility] TOMOG PHYS PSC SPECT DOUBLE END SEWER STD CV STRS 38683 MONICA ANDERSON TST 9 N, GEREMIAS DOUGHERTY XERS&/OR RX CONT ECG I&R ONLY MYOCRD 19887 KRISTOFER DOMINGOUDonell STD 9 N [facility] [place] [address] [facility] IRON 9 [facility] IRON 95424 [facility] BINDING 9 [facility] CAPACITY COLLECTIO 61483 [facility] N VENOUS 9 [facility] BLOOD VENIPUNCT URE COLLECTIO 00082 [facility] N VENOUS 9 [facility] BLOOD VENIPUNCT URE BLOOD 55663 [facility] COUNT 9 [facility] COMPLETE AUTO&AUTO DIFRNTL WBC INFLUENZA G9141 MONICA ANDERSON A H1N1 9 N, GEREMIAS DOUGHERTY IMMUNIZAT ION ADMINISTR ATION PWR E2365 ALLIED ALLIED WHLCHAIR 9 HOME HOME ACSS U-1 MEDICAL, MEDICAL, SEALED INC. INC. LEAD ACID BATTRY EA REPR/SRVC K0739 ALLIED ALLIED DME NOT 9 HOME HOME O2 RQR MEDICAL, MEDICAL, TECH INC. INC. CMPNT PER 15 MINS CULTURE 16120 LAB HEIDI LAB HEIDI BACTERIAL 9 AMERIC AMERIC ANY HOLDING HOLDING SOURCE ANAEROBIC ISO&ID SMR PRIM 74538 LAB HEIDI LAB HEIDI SRC 9 AMERIC AMERIC GRAM/GIEM HOLDING HOLDING SA STAIN BCT FUNGI/LEONIDES L SUSCEPTIB 85135 LAB HEIDI LAB HEIDI LTY STDY 9 AMERIC AMERIC ANTIMICRB HOLDING HOLDING IAL MICRO/AGA R DILUTJ CUL BACT 51343 LAB HEIDI LAB HEIDI XCPT 9 AMERIC AMERIC URINE HOLDING HOLDING BLOOD/[place] [address] [facility] PROSTATE 9 [facility] SPECIFIC ANTIGEN TOTAL LIPID 28591 [facility] PANEL 9 [facility] COMPREHEN 32014 [facility] SIVE 9 [facility] METABOLIC PANEL COLLECTIO 60061 [facility] N VENOUS 9 [facility] [place] [address] [place] CIBULL, SURG 9 MEDICAL FAUSTINO PATHOLOGY SERV GROSS FOUNDATIO EXAMINATI ON ONLY FLUOROSCO 63622 [facility] PY SPX >1 9 Y [facility] PHYS/QHP TIME INJECTION J2270 [facility] MORPHINE 9 Y Y SULFATE [facility] UP TO 10 MG INJECTION J0690 [facility] 9 Y Y CEFAZOLIN [facility] SODIUM 500 MG INJECTION J3010 [facility] FENTANYL 9 Y Y CITRATE [facility] 0.1 MG REMOVAL 70625 TARAS JUAN, IMPLANT 9 MEDICAL TONO J DEEP SERV FOUNDATIO CUL BACT 67550 [facility] XCPT 9 Y Y URINE [facility] BLOOD/STO OL AEROBIC ISOL INJECTION J2175 [facility] 9 Y Y MEPERIDIN [facility] E HCL PER 100 MG RINGERS J7120 [facility] LACTATE 9 Y Y INFUSION [facility] UP TO 1000 CC SMR PRIM 04804 [facility] SRC 9 Y Y GRAM/GIEM [facility] SA STAIN BCT FUNGI/LEONIDES L RADEX 74724 [facility] FOOT 9 Y Y COMPLETE [facility] MINIMUM 3 VIEWS BLOOD 82134 [facility] COUNT 9 Y Y COMPLETE [facility] AUTOMATED ECG 45416 [facility] ROUTINE 9 Y Y ECG [facility] W/LEAST 12 LDS TRCG ONLY W/O I&R ECG 54582 TARAS CHASE, ROUTINE 9 MEDICAL MARIXA G ECG SERV W/LEAST FOUNDATIO 12 LDS I&R ONLY BASIC 00968 [facility] METABOLIC 9 Y Y PANEL [facility] CALCIUM TOTAL COLLECTIO 16686 [facility] UNIVERS N VENOUS 9 Y Y BLOOD [facility] VENIPUNCT URE COLLECTIO 82533 [facility] N VENOUS 9 Y Y BLOOD [facility] VENIPUNCT URE CELL 14693 [facility] COUNT 9 Y Y [facility] FLUIDS W/DIFFERE NTIAL COUNT SMR PRIM 61847 [facility] 9 Y Y GRAM/GIEM [facility] SA STAIN BCT FUNGI/LEONIDES L CUL BACT 63437 [facility] 9 Y Y URINE [facility] BLOOD/STO OL AEROBIC ISOL ARTHROCEN 27894 [facility] MAKS[facility] TESIS 9 LTH II, NESHA ASPIR&/IN ORTHOPAED A J MAJOR IC JT/BURSA SURGEONS W/O US PSC INJ J0702 [facility] MA[facility] BETAMETHA 9 LTH II, NESHA SONE ORTHOPAED A ACETATE & IC SURGEONS PHOSPHATE PSC 3 MG PWR E2365 ALLIED ALLIED WHLCHAIR 9 HOME HOME ACSS U-1 MEDICAL, MEDICAL, SEALED INC. INC. LEAD ACID BATTRY EA REP/NONRO E1340 ALLIED ALLIED UTINE 9 HOME HOME SRVC DME MEDICAL, MEDICAL, RQR SKL INC. INC. TECH LABR-15 MIN SBSQ 18966 [facility] 8 EMERGENCY N, CARE/DAY SERVICES TADARRO 25 MINUTES ASSOCIATE S ANESTH 31655 KRANTHI CARDOZO 8 [facility] REEMA Harvey ANESTHESI ARTHROSCO A PSC PIC PROC KNEE JOINT INITIAL 94224 [facility] INPATIENT 8 EMERGENCY N, CONSULT SERVICES TADARRO NEW/ESTAB PT 110 ASSOCIATE MIN S LEVEL III 8[address]44 [place] ANN, SURG 8 MEDICAL TIM E PATHOLOGY SERV FOUNDATIO GROSS&VENUS ROSCOPIC EXAM COLONOSCO 01390 [facility] [place], PY FLX DX 8 [place] RICHY G W/COLLJ GASTROENT SPEC WHEN PFRMD ANES 69609 [place] HIRO, LOWER 8 ANESTHESI JENNIFER Vieira INTESTINE A GROUP PSC ENDOSCOPY DISTAL DUODENUM CELL 58918 [facility] UNIVERS[facility] COUNT 8 Y Y [facility] FLUIDS W/DIFFERE NTIAL COUNT CUL BACT 81812 [facility] 8 Y Y URINE [facility] BLOOD/STO OL AEROBIC ISOL SMR PRIM 88649 UNIVERSIT [facility] SRC 8 Y Y GRAM/[facility] SA STAIN BCT FUNGI/LEONIDES L ALBUTEROL [...] DOSE NONFILTR PHARMACY PHARMACY PNEUMATIC NEBULIZER DISPBL SMALL A7004 PULMO PULMO VOLUME 8 [...] IPRATROPI UM BROM TO 0.5 MG DUP-SCAN 98950 [facility] LXTR 8 N N ART/ARTL [facility] COMPL BI STUDY ALBUTEROL J7620 [...] NONFILTR PHARMACY PHARMACY PNEUMAT NEBULIZR DISPBL RADIOLOGI 69116 MAKSIM MAKSIM C EXAM 8 II, NESHA II, NESHA KNEE A A COMPLETE 4/MORE VIEWS RADIOLOGI 88655 MAKSIM MAKSIM C 8 II, NESHA II, [...] Performer Type Date [facility] 3 3 Y [facility] [place] 3 3 [facility] [place] 3 3 [facility] EMERGENCY 41129 TARAS SALAZAR DEPT 3 3 MEDICAL JORGE VISIT SERV HIGH FOUNDATIO SEVERITY& THREAT [facility] [place] [address] 3 Y INPATIENT HOSPITAL Emergency NICOLÁS Keene MD (ER) 3 22:37 3 00:59 [facility] [place] - 3 3 [facility] T OFFICE [address] ARTHRITIS ALBERT[place] [address] 3 CENTER T VISIT OF 25 [facility] UNIVERSIT 3 3 Y [facility] Emergency NICOLÁS Millard MD (ER) 3 15:20 3 17:49 [facility] EMERGENCY 77436 TARAS JOYCE DEPT 3 3 MEDICAL ELLY VISIT SERV HIGH FOUNDATIO SEVERITY& THREAT [facility] [place] - 3 3 [facility] [place] - 3 3 [facility] H[facility]P OUTPATIEN [facility] T OFFICE 71577 Avtar Candice LAZCANO OUTPATIEN 3 3 FILEMON SHAH T VISIT PSC 15 MINUTES Emergency NICOLÁS Millard MD (ER) 3 14:54 3 16:00 [facility] [place] - [address] [facility] OUTPATIEN [facility] T EMERGENCY [address] [place] 3 3 [facility] T VISIT HIGH/URGE NT SEVERITY EMERGENCY 41040 POPPY SANTA DEPT 3 3 EMERGENCY VISIT SERVICES HIGH SEVERITY& THREAT FUNCJ OFFICE 42863 ARTHRITIS ALBERTO RIT OUTPATIEN 3 3 CENTER T VISIT OF 25 [facility] OFFICE 42399 Avtar Candice LAZCANO OUTPATIEN 3 3 FILEMON SHAH T VISIT [facility] 15 MINUTES [facility] [place] - [address] [facility] OUTPATIEN [facility] T OFFICE 42039 ARTHRITIS ALBERTO RIT OUTPATIEN 3 3 CENTER T VISIT OF 10 [facility] [place] - [address] [facility] OUTPATIEN [facility] [place] - [address] [facility] [facility] T OFFICE [id number] ARTHRITIS ALBERTO RIT OUTPATIEN 3 3 CENTER T VISIT OF 25 [facility] [place] - [address] [facility] OUTPATIEN [facility] 3 3 [facility] T OFFICE 64300 TARAS THOMPSON OUTPATIEN 3 3 MEDICAL JAM T VISIT SERV 40 [facility] [place] [facility] [address] 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 SERV HIGH FOUNDATIO SEVERITY& THREAT FUNCJ OFFICE 39960 TARAS GATES OUTPATIEN 3 3 MEDICAL [place] T VISIT SERV ANG 25 [facility] - 2 3 Y INPATIENT HOSPITAL EMERGENCY 64372 POPPY KEENE DEPT 2 2 EMERGENCY VENUS VISIT SERVICES HIGH SEVERITY& THREAT FUN EMERGENCY 98303 POPPY SANTA DEPT 2 2 EMERGENCY VISIT SERVICES HIGH SEVERITY& THREAT [facility] [place] 22017 2 N OUTPATIEN [facility] HOSPITA OFFICE 14424 CULBERTSO CULBERTSO OUTPATIEN 2 2 N KALYAN N KALYAN T VISIT 15 MINUTES OFFICE 85177 CULBERTSO CULBERTSO OUTPATIEN 1 1 N KALYAN N KALYAN T VISIT 15 MINUTES HOSPITAL UNIVERSIT - 1 1 Y [facility] - 1 1 Y [facility] - 0 0 Y [facility] OFFICE 22978 CULBERTSO CULBERTSO OUTPATIEN 0 0 N KALYAN N KALYAN T VISIT 15 MINUTES OFFICE 28810 TARAS MARTINEZ OUTPATIEN 0 0 MEDICAL KAMALA T VISIT SERV 15 [facility] [place] - 0 0 [facility] OUTPATIEN INC T EMERGENCY 68979 POPPY MORRISSEY DEPT 0 0 EMERGENCY III [facility] VISIT SERVICES HIGH SEVERITY& THREAT FUN EMERGENCY 71656 [place] 0 0 [facility] DEPARTMEN INC T VISIT MODERATE SEVERITY OFFICE 66277 TARAS MARTINEZ OUTPATIEN 0 0 MEDICAL [place]AMAL[place] T VISIT SERV 15 [facility] [place] - 0 0 [facility] OUTPATIEN INC T EMERGENCY 76938 [place] 0 0 [facility] DEPARTMEN INC T VISIT LOW/MODER SEVERITY OFFICE 44011 CULBERTSO CULBERTSO OUTPATIEN 9 9 GEREMIAS Bautista ROBERT T VISIT 15 MINUTES [facility] - 9 9 N [facility] OFFICE 31937 CULBERTSO CULBERTSO OUTPATIEN 9 9 NGEREMIAS ROBERT T VISIT 15 MINUTES OFFICE 61389 CULBERTSO CULBERTSO OUTPATIEN 9 9 NGEREMIAS ROBERT T VISIT 25 MINUTES OFFICE 53367 CULBERTSO CULBERTSO OUTPATIEN 9 9 GEREMIAS Bautista ROBERT T VISIT 15 MINUTES HOSPITAL [facility] - 9 9 Y [facility] - 9 9 Y [facility] OFFICE 65407 [place] JUAN, KAM 9 9 MEDICAL TONO J ION SERV NEW/ESTAB FOUNDATIO PATIENT 40 MIN OFFICE 89308 [facility] 9 9 [facility] NESHA CLEMONS T VISIT ORTHOPAED A 15 IC MINUTES [facility] UN[facility] - 9 9 Y [facility] UN[facility]ERS[facility] - 8 8 Y [facility] OFFICE 99791 CULBERTSO CULBERTSO OUTPATIEN 8 8 GEREMIAS Bautista ROBERT T VISIT 15 MINUTES [facility] 8 8 N [facility] OFF[facility] 25346 [facility] 8 8 IINESHA II, GLEN T VISIT A A 15 MINUTES
--- OUTSIDE RECORDS SUMMARY | 2016-09-28 10:24 | External Medical Summary Rpt ---
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 SUPPLIES 1 MEDICAL KAMALA SHORT LEG SERV CAST FOUNDATIO ADULT FIBERGLAS S RADIOLOGI 00317 [facility] C 1 [facility]OT 2 VIEWS APPLICATI 42076 [place] ON SHORT 1 MEDICAL MEDICAL LEG CAST SERV SERV WALKING/A FOUNDATIO FOUNDATIO MBULATORY APPLICATI 67335 [place] ON SHORT 1 MEDICAL MEDICAL LEG CAST SERV SERV BELOW FOUNDATIO FOUNDATIO KNEE-TOE CAST Q4038 TARAS MARTINEZ SUPPLIES 1 MEDICAL [place]AM[place] SHORT LEG SERV CAST FOUNDATIO ADULT FIBERGLAS S PHYSICAL 33301 [facility] THERAPY 0 Y Y [facility] G0378 [facility] OBSERVATI 0 Y Y ON HOSPITAL HOSPITAL SERVICE PER HOUR ARTHRODES 15148 TARAS MARTINEZ IS 0 MEDICAL [place] SUBTALAR SERV FOUNDATIO ANESTHESI 79147 TARAS GERALD A ON BONY 0 [place] [address] TARAS GERALD GUIDANCE 0 MEDICAL JUS NEEDLE SERV PLACEMENT FOUNDATIO IMG S&I FLUOROSCO 85949 [facility] PY SPX >1 0 [facility] PHYS/QHP TIME BONE 56239 TARAS MARTINEZ GRAFT ANY 0 MEDICAL [place]AM[place] DONOR SERV AREA FOUNDATIO MAJOR/LAR GE INJECTION 19250 TARAS MADELAINECOKAVEH 0 MEDICAL JUS ANESTHETI SERV C AGENT FOUNDATIO SCIATIC NRV SINGLE INJECTION 28730 TARAS MADELAINECOKAVEH 0 MEDICAL JUS ANESTHETI SERV C AGENT FOUNDATIO FEMORAL NERVE SINGLE CUL BACT 10413 [facility] HE[facility] XCPT 0 AMERIC AMERIC URINE HOLDING HOLDING BLOOD/STO OL AEROBIC ISOL SMR PRIM 75301 [facility] SRC 0 AMERIC AMERIC GRAM/GIEM HOLDING HOLDING SA STAIN BCT FUNGI/LEONIDES L CULTURE 53352 [facility] BACTERIAL 0 AMERIC AMERIC ANY HOLDING HOLDING SOURCE ANAEROBIC ISO&ID PRESSURIZ 20548 [place] ED/NONPRE 0 [facility] SSURIZED INC INC INHALATIO N TREATMENT RADIOLOGI 30641 [place] C 0 [facility] EXAMINATI INC INC [place] [address] [place] [facility] TROPONIN 0 [facility] QUANTITAT INC INC COURTNEY BLOOD 13657 [place] [facility] COUNT 0 [facility] COMPLETE INC INC AUTO&AUTO DIFRNTL WBC CREATINE 72058 [place] STEVENSON KINASE MB 0 [facility] FRACTION INC INC ONLY ECG 24223 [place] ROUTINE 0 [facility] ECG INC INC W/LEAST 12 LDS TRCG ONLY W/O I&R CREATINE 06928 [place] KINASE 0 [facility] TOTAL INC INC THER 96901 [place] PROPH/DX 0 [facility] NJX IV INC INC PUSH SINGLE/1S T SBST/DRUG BASIC 88426 [place] METABOLIC 0 [facility] PANEL INC INC CALCIUM TOTAL ECG 51461 [place] MCKEMIE ROUTINE 0 [facility] W/LEAST P 12 LDS I&R ONLY DUP-SCAN 56742 [place]ULE[place] COLEMAN XTR VEINS 0 [facility] INC INC UNILATERA L/LIMITED STUDY 3D 84907 [place] RENDERING 0 [facility] INC INC W/INTERP& POSTPROC DIFF WORK STATION [place] LOWER 50105 [place] EXTREMITY 0 [facility] W/O INC INC CONTRAST MATERIAL INJECTION J1040 MONICA ANDERSON 9 N, GEREMIAS DOUGHERTY METHYLPRE DNISOLONE ACETATE 80 MG BLOOD 38674 MONICA ANDERSON OCCULT 9 N, GEREMIAS DOUGHERTY PEROXIDAS E ACTV QUAL FECES 1 DETER MYOCRD 28300 [facility] PRFUJ STD [address] [facility] QUAL/RENEE STD TECHNETIU A9500 [facility] TC-99M 9 N N SESTAMIBI [facility] COMM[facility]ITY DX PER HOSPITAL HOSPITAL STUDY DOSE CV STRS 61227 MONICA ANDERSON TST 9 N, GEREMIAS DOUGHERTY XERS&/OR RX CONT ECG W/O I&R CV STRS 54685 [facility] TST 9 N N XERS&/OR COMMUNITY COMMUNITY RX CONT HOSPITAL HOSPITAL ECG TRCG ONLY MYOCRD 84661 DAX AVENDANO, KRISTOFERUJ IMG 9 N [facility] TOMOG PHYS PSC SPECT CART PUSHER STD CV STRS 17688 MONICA ANDERSON TST 9 N, GEREMIAS DOUGHERTY XERS&/OR RX CONT ECG I&R ONLY MYOCRD 26724 KRISTOFER DOMINGOUDonell STD 9 N [facility] [place] [address] [facility] IRON 9 [facility] IRON 13017 [facility] BINDING 9 [facility] CAPACITY COLLECTIO 45436 [facility] N VENOUS 9 [facility] BLOOD VENIPUNCT URE COLLECTIO 21354 [facility] N VENOUS 9 [facility] BLOOD VENIPUNCT URE BLOOD 01202 [facility] COUNT 9 [facility] COMPLETE AUTO&AUTO DIFRNTL WBC INFLUENZA G9141 MONICA ANDERSON A H1N1 9 N, GEREMIAS DOUGHERTY IMMUNIZAT ION ADMINISTR ATION PWR E2365 ALLIED ALLIED WHLCHAIR 9 HOME HOME ACSS U-1 MEDICAL, MEDICAL, SEALED INC. INC. LEAD ACID BATTRY EA REPR/SRVC K0739 ALLIED ALLIED DME NOT 9 HOME HOME O2 RQR MEDICAL, MEDICAL, TECH INC. INC. CMPNT PER 15 MINS CULTURE 13724 [facility] BACTERIAL 9 AMERIC AMERIC ANY HOLDING HOLDING SOURCE ANAEROBIC ISO&ID SMR PRIM 47377 [facility]I SRC 9 AMERIC AMERIC GRAM/GIEM HOLDING HOLDING SA STAIN BCT FUNGI/LEONIDES L SUSCEPTIB 67198 [facility] LTY STDY 9 AMERIC AMERIC ANTIMICRB HOLDING HOLDING IAL MICRO/AGA R DILUTJ CUL BACT 81372 [facility] LAB HEIDI XCPT 9 AMERIC AMERIC URINE HOLDING HOLDING BLOOD/[place] [address] [facility] PROSTATE 9 [facility] SPECIFIC ANTIGEN TOTAL LIPID 95776 [facility] PANEL 9 [facility] COMPREHEN 60664 [facility] SIVE 9 [facility] METABOLIC PANEL COLLECTIO 22588 [facility] N VENOUS 9 [facility] [place] [address] [place] CIBULL, SURG 9 MEDICAL FAUSTINO PATHOLOGY SERV GROSS FOUNDATIO EXAMINATI ON ONLY FLUOROSCO 00157 [facility] PY SPX >1 9 Y [facility] PHYS/QHP TIME INJECTION J2270 [facility] MORPHINE 9 Y Y SULFATE [facility] UP TO 10 MG INJECTION J0690 [facility] 9 Y Y CEFAZOLIN [facility] SODIUM 500 MG INJECTION J3010 [facility] FENTANYL 9 Y Y CITRATE [facility] 0.1 MG REMOVAL 79516 TARAS JUAN, IMPLANT 9 MEDICAL OTNO J DEEP SERV FOUNDATIO CUL BACT 13972 [facility] XCPT 9 Y Y URINE [facility] BLOOD/STO OL AEROBIC ISOL INJECTION J2175 [facility] 9 Y Y MEPERIDIN [facility] E HCL PER 100 MG RINGERS J7120 [facility] LACTATE 9 Y Y INFUSION [facility] UP TO 1000 CC SMR PRIM 25352 [facility] SRC 9 Y Y GRAM/GIEM [facility] SA STAIN BCT FUNGI/LEONIDES L RADEX 12471 [facility] FOOT 9 Y Y COMPLETE [facility] MINIMUM 3 VIEWS BLOOD 13454 [facility] COUNT 9 Y Y COMPLETE [facility] AUTOMATED ECG 05481 [facility] ROUTINE 9 Y Y ECG [facility] H[facility]PITAL W/LEAST 12 LDS TRCG ONLY W/O I&R ECG 88919 TARAS CHASE, ROUTINE 9 MEDICAL MARIXA G ECG SERV W/LEAST FOUNDATIO 12 LDS I&R ONLY BASIC 77519 [facility] METABOLIC 9 Y Y PANEL [facility] CALCIUM TOTAL COLLECTIO 85569 [facility] UNIVERS N VENOUS 9 Y Y BLOOD [facility] VENIPUNCT URE COLLECTIO 33006 [facility] N VENOUS 9 Y Y BLOOD [facility] VENIPUNCT URE CELL 36890 [facility] COUNT [address] [facility] FLUIDS W/DIFFERE NTIAL COUNT SMR PRIM 20340 [facility] 9 Y Y GRAM/GIEM [facility] HOSPITAL SA STAIN BCT FUNGI/LEONIDES L CUL BACT 37080 [facility] 9 Y Y URINE [facility] BLOOD/STO OL AEROBIC ISOL ARTHROCEN 33815 COMMONWEA MAKSIM TESIS 9 LTH II, NESHA [...] SKL INC. INC. TECH LABR-15 MIN SBSQ 83528 [facility] 8 EMERGENCY N, CARE/DAY SERVICES TADARRO 25 MINUTES ASSOCIATE S ANESTH 52543 KRANTHI CARDOZO 8 [facility] REEMA Harvey ANESTHESI ARTHROSCO A PSC PIC PROC KNEE JOINT INITIAL 74817 [facility] INPATIENT 8 EMERGENCY N, CONSULT SERVICES TADARRO NEW/ESTAB PT 110 ASSOCIATE MIN S LEVEL III 02156 [place] ANN, SURG 8 MEDICAL TIM E PATHOLOGY SERV FOUNDATIO GROSS&VENUS ROSCOPIC EXAM COLONOSCO 86044 [facility], PY FLX DX 8 [place] RICHY G W/COLLJ GASTROENT SPEC WHEN PFRMD ANES 41304 [place] HIRO, LOWER 8 ANESTHESI JENNIFER Vieira INTESTINE A GROUP PSC ENDOSCOPY DISTAL DUODENUM CELL 37883 [facility] UNIVERSIT COUNT 8 Y Y [facility] FLUIDS W/DIFFERE NTIAL COUNT CUL BACT 79188 [facility] 8 Y Y URINE [facility] BLOOD/STO OL AEROBIC ISOL SMR PRIM [address] [facility] SRC 8 Y Y [facility] SA STAIN BCT FUNGI/LEONIDES L ALBUTEROL J7620 [...] IPRATROPI UM BROM TO 0.5 MG DUP-SCAN 08984 [facility] LXTR 8 N N ART/ARTL [facility] COMPL BI STUDY ALBUTEROL J7620 PULMO PULMO [...] NONFILTR PHARMACY PHARMACY PNEUMAT NEBULIZR DISPBL RADIOLOGI 49512 MAKSIM MAKSIM C EXAM 8 II, NESHA II, NESHA KNEE A A COMPLETE 4/MORE VIEWS RADIOLOGI 23953 MAKSIM MAKSIM C 8 II, NESHA II, NESHA EXAMINATI A A ON KNEE 1/2 VIEWS PHRM Q0513 PULMO PULMO DISPENSIN 8 DOSE DOSE G FEE PHARMACY PHARMACY INHALATIO N RX; PER 30 DAYS ALBUTEROL J7620 PULMO PULMO TO 2.5 8 DOSE DOSE MG & PHARMACY PHARMACY IPRATROPI UM BROM TO 0.5 MG Encounters Encounter Start End Date Code Location Performer Type Date [facility] 3 3 Y [facility] [place] 3 3 [facility] [place] 3 3 [facility] EMERGENCY 09247 TARAS SALAZAR DEPT 3 3 MEDICAL JORGE VISIT SERV HIGH FOUNDATIO SEVERITY& THREAT [facility] [place] [address] 3 Y INPATIENT HOSPITAL Emergency NICOLÁS Keene MD (ER) 3 22:37 3 00:59 [facility] [place] - [address] [facility] T OFFICE 82983 ARTHRITIS [place]ERTO [place] [address] 3 CENTER T VISIT OF 25 [facility] UNIVERSIT 3 3 Y [facility] Emergency NICOLÁS Millard MD (ER) 3 15:20 3 17:49 [facility] EMERGENCY 53041 TARAS JOYCE DEPT 3 3 MEDICAL ELLY VISIT SERV HIGH FOUNDATIO SEVERITY& THREAT [facility] [place] - 3 3 [facility] [place] - 3 3 [facility] OUTPATIEN [facility] T OFFICE 62553 Avtar Candice LAZCANO OUTPATIEN 3 3 FILEMON SHAH T VISIT PSC 15 MINUTES Emergency NICOLÁS Millard MD (ER) 3 14:54 3 16:00 [facility] [place] - 3 3 [facility] OUTPATIEN [facility] T EMERGENCY 64518 [place] 3 3 [facility] T VISIT HIGH/URGE NT SEVERITY EMERGENCY 45561 POPPY SANTA DEPT 3 3 EMERGENCY VISIT SERVICES HIGH SEVERITY& THREAT FUNCJ OFFICE 30073 ARTHRITIS ALBERTO RIT OUTPATIEN 3 3 CENTER T VISIT OF 25 [facility] OFFICE 65752 Avtar Candice LAZCANO OUTPATIEN 3 3 FILEMON SHAH T VISIT [facility] 15 MINUTES [facility] [place] - 3 3 [facility] OUTPATIEN [facility] T OFFICE 19107 ARTHRITIS ALBERTO RIT OUTPATIEN 3 3 CENTER T VISIT OF 10 [facility] [place] - 3 3 [facility] OUTPATIEN [facility] [place] - 3 3 [facility] T OFFICE 14350 ARTHRITIS ALBERTO RIT OUTPATIEN 3 3 CENTER T VISIT OF 25 [facility] [place] - 3 3 [facility] OUTPATIEN [facility] UNIVERS[facility] - 3 3 Y [facility] T OFFICE 91006 TARAS THOMPSON OUTPATIEN 3 3 MEDICAL JAM T VISIT SERV 40 FOUNDATIO [facility] [place] - 3 3 [facility] OUTPATIEN [facility] UN[facility] - 3 3 Y INPATIENT HOSPITAL EMERGENCY 22187 TARAS LANTIGUA DEPT 3 3 MEDICAL BENZENE WORKER VISIT SERV HIGH FOUNDATIO SEVERITY& THREAT FUNCJ OFFICE 24844 TARAS GATES OUTPATIEN 3 3 MEDICAL YATACO T VISIT SERV ANG 25 FOUNDATIO [facility] UNIVERSIT - 2 3 Y INPATIENT HOSPITAL EMERGENCY 63101 POPPY KEENE DEPT 2 2 EMERGENCY VENUS VISIT SERVICES HIGH SEVERITY& THREAT FUN EMERGENCY 29034 POPPY SANTA DEPT 2 2 EMERGENCY VISIT SERVICES HIGH SEVERITY& THREAT [facility] [place] [address] 2 N OUTPATIEN [facility] HOSPITA OFFICE 95227 CULBERTSO CULBERTSO OUTPATIEN 2 2 N KALYAN N KALYAN T VISIT 15 MINUTES OFFICE 97513 CULBERTSO CULBERTSO OUTPATIEN 1 1 N KALYAN N KALYAN T VISIT 15 MINUTES HOSPITAL UNIVERSIT - 1 1 Y [facility] UNIVERSIT - 1 1 Y [facility] UNIVERSIT - 0 0 Y [facility] OFFICE 78436 CULBERTSO CULBERTSO OUTPATIEN 0 0 N KALYAN N KALYAN T VISIT 15 MINUTES OFFICE 03732 TARAS MARTINEZ OUTPATIEN 0 0 MEDICAL KAMALA T VISIT SERV 15 [facility] [place] - 0 0 [facility] OUTPATIEN INC T EMERGENCY 41347 POPPY MORRISSEY DEPT 0 0 EMERGENCY III TRISTA VISIT SERVICES HIGH SEVERITY& THREAT FUN EMERGENCY 11714 [place] 0 0 [facility] DEPARTMEN INC T VISIT MODERATE SEVERITY OFFICE 44915 TARAS MARTINEZ OUTPATIEN 0 0 MEDICAL KAMALA T VISIT SERV 15 [facility] [place] - 0 0 [facility] OUTPATIEN INC T EMERGENCY 57788 [place] 0 0 [facility] DEPARTMEN INC T VISIT LOW/MODER SEVERITY OFFICE 43634 CULBERTSO CULBERTSO OUTPATIEN 9 9 GEREMIAS Bautista ROBERT T VISIT 15 MINUTES [facility] - [address] [facility] OFFICE 29204 CULBERTSO CULBERTSO OUTPATIEN 9 9 NGEREMIAS ROBERT T VISIT 15 MINUTES OFFICE 69727 CULBERTSO CULBERTSO OUTPATIEN 9 9 NGEREMIAS ROBERT T VISIT 25 MINUTES OFFICE 14775 CULBERTSO CULBERTSO OUTPATIEN 9 9 GEREMIAS Bautista ROBERT T VISIT 15 MINUTES HOSPITAL UN[facility]IT - 9 9 Y [facility] UNIVERS[facility] - 9 9 Y [facility] OFFICE 53578 [place] JUAN, KAM 9 9 MEDICAL TONO J ION SERV NEW/ESTAB FOUNDATIO PATIENT 40 MIN OFFICE 24366 COMMONWEA MAKSIM [facility] 9 9 [facility] NESHA CLEMONS T VISIT ORTHOPAED A 15 IC MINUTES SURGEONS [facility] UNIVERSIT - 9 9 Y [facility] UNIVERSIT - 8 8 Y [facility] OFFICE 42939 CULBERTSO CULBERTSO OUTPATIEN 8 8 GEREMIAS Bautista ROBERT T VISIT 15 MINUTES [facility] [address] [facility] OFFICE 78064 MAKSIM MAKSIM [facility] 8 8 IINESHA II, GLEN T VISIT A A 15 MINUTES
--- OUTSIDE RECORDS SUMMARY | 2016-09-28 10:30 | External Medical Summary Rpt ---
Author Author , Organization [employer] Address Unknown Phone Unavailable Care Team Providers Care Hand Collator Name Role Phone A Candice COLBERT MD [...] SOHEILA DEENA [facility] Unavailable Unavailable SERVICE, [facility] Unavailable Unavailable SERVICE, [facility] CAMILLE KET, CAMILLE KET Unavailable Unavailable [facility] [employer], [employer] Unavailable Unavailable [employer] TITI JAG, TITI Unavailable Unavailable JAG [facility] [...] NAN JESSICA [facility], JESSICA Unavailable Unavailable [facility] Unavailable Unavailable HOSPITA, [facility] Unavailable [facility]available [facility], [facility], [facility] Unavailable [facility]available [facility], [facility] Unavailable Unavailable HOSPITAL P, [facility] P DUBOIS KAMALA, DUBOIS KAMALA Unavailable Unavailable RENA, MARIXA G, RENA, Unavailable Unavailable MARIX[facility] G [facility] HARLEY OSCAR, Unavailable Unavailable HARLEY OSCAR KILPELA JEA, KILPELA Unavailable Unavailable JEA ARINA NADINE, ARINA NADINE Unavailable Unavailable KOSTELIC MONTSERRAT, Unavailable Unavailable KOSTELIC MONTSERRAT ROQUE CHI, ROQUE [facility] Unavailable Unavailable [facility] Unavailable Unavailable [facility], [facility] Unavailable Unavailable [facility]ING, [facility] Unavailable Unavailable [facility] Unavailable Unavailable [facility], [facility], Unavailable Unavailable [facility] JUAN KAMALA, Unavailable Unavailable JUAN KAMALA TONO MARTINEZ, Unavailable Unavailable TONO MARTINEZ HAYWOOD MARION, HAYWOOD Unavailable Unavailable MARION JESICA JAM, JESICA JAM Unavailable Unavailable TIAGO JR DWI, TIAGO Unavailable Unavailable JR DWI LUKINS TIERRA, LUKINS Unavailable Unavailable [facility] Unavailable Unavailable SERVICES, [facility] MAKSIM II, NESHA A, Unavailable [...] SADIE GIRARD PRE, SHAJI Unavailable Unavailable PRE [facility], Unavailable Unavailable [facility] Unavailable Unavailable [facility], [facility] INTER GERALD MINA, Unavailable Unavailable [...] SERV PULMONARY FOUNDATIO FIBROSIS 7245 UNSPECIFIED 03-19-2013 [facility] 07289 OTHER 03-19-2013 [facility] [place] [address] OBSTRUCTIVE 03-10-2013 [facility] APNEA MEDICAL EQUIPME 28454 OTHER 03-07-2013 [place] DISEASES OF [facility] LUNG NOT INC ELSEWHERE CLASSIFIED 7242 LUMBAGO 03-06-2013 [facility] INC V571 OTHER 03-06-2013 [facility] THERAPY INC 42630 OTHER 03-01-2013 [place] [facility] CONDITIONS SERV OF BRAIN [facility] 7140 RHEUMATOID 03-01-2013 [place] [facility] ARTHRITIS SERV [facility] 7840 HEADACHE 03-01-2013 [facility] 56420 DIARRHEA 03-01-2013 [facility] 7930 NONSPECIFIC 03-01-2013 [place] [facility] AB[facility] FNDNG SERV RAD & OTH [facility]OUNDAT[facility] EXM SKULL & HEAD E8889 UNSPECIFIED 03-01-2013 [place] [facility] FALL [facility] 80407 OTHER 02-28-2013 [place] [facility] CHRONIC SERV PAIN [facility] 4019 UNSPECIFIED 02-28-2013 [place] [facility] ESSENTIAL SERV HYPERTENSIO FOUNDATIO N 13165 FEVER 02-28-2013 [place] [facility] UNSPECIFIED SERV [facility] 16788 OTHER 02-28-2013 [place] [facility] NONSPECIFIC SERV ABNORMAL [facility] FINDING OF LUNG FIELD 412 OLD 02-27-2013 [facility] INFARCTION 41431 CORONARY 02-27-2013 [facility] [place] CORONARY ARTERY 4829 UNSPECIFIED 02-27-2013 [facility] PNEUMONIA SERVICE 5184 UNSPECIFIED 02-27-2013 [place] [facility] [place] [facility] EDEMA OF F[facility]ATIO LUNG 5849 ACUTE 02-27-2013 [facility] FAILURE UNSPECIFIED 45804 RHEUMATOID 02-27-[address] [facility] [place] V4361 SHOULDER 02-27-2013 [place] [facility] REPLACEMENT [facility] BY OTHER MEANS V462 DEPENDENCE 02-27-2013 [facility] FOR SUPPLEMENTA L OXYGEN 23267 OBSTRUCTIVE 02-26-2013 [facility] P WITH EXACERBATIO N V5869 LONG-TERM 02-20-2013 [facility] (CURRENT) CENTER OF USE OF LEXINGTO OTHER MEDICATIONS V6751 F/U EXAM 02-20-2013 [facility] FOLLOW CMPL [place] [facility] W/HIGH-RISK MED NEC 28609 COR 02-12-2013 [facility] UNSPEC TYPE VESSEL [place]/RAUL T 4940 BRONCHIECTA 01-31-2013 [place] [facility] S[facility] WITHOUT SERV ACUTE FOUNDATIO EXACERBATIO N 43619 IDIOPATHIC 01-31-2013 [facility] FIBROS[facility] SERVICES 7856 ENLARGEMENT 01-31-2013 [place] [facility] LYMPH SERV NODES [facility] 33433 SHORTNESS 01-31-2013 [place] [facility] BREATH SERV [facility] 77374 OTHER 01-31-2013 [facility] SERVICE COMPLICATIO NS 0529 VARICELLA 01-06-2013 A Candice PINZON MD PSC MENTION OF COMPLICATIO N 7862 COUGH 01-06-2013 A Candice COLBERT MD PSC 4660 ACUTE 11-06-2012 A Candice COLBERT BRONCHITIS PSC V5812 ENCOUNTER 09-25-2012 [facility] FOR CENTER OF ANTINEOPLAS LEXINGTO TIC IMMUNOTHERA PY 2859 UNSPECIFIED 08-31-2012 [facility] 4841 PNEUMONIA 08-31-2012 [place] [facility] IN [facility] CYTOMEGALIC [facility] INCLUSION DISEASE 5168 OTH SPEC 08-31-2012 [place] [facility] ALVEOL&DEONNA SERV ETOALVEOL FOUNDATIO PNEUMONOPAT HIES 68766 NAUSEA WITH 08-02-2012 [place] [facility] VOMITING SERV [facility] V1209 PERSONAL HX 08-02-2012 [place] [facility] [place] INFECTIOUS& FOUNDATIO PARASITIC DISEASE 2724 OTHER AND 07-31-2012 [facility] HYPERLIPIDE ALEKSANDAR 5589 OTH&UNSPEC 07-31-2012 [place] [facility] NONINFECTIO SERV US FOUNDATIO GASTROENTER ITIS&COLITI S 29227 VOMITING 07-31-2012 [facility] INTER 09300 ABDOMINAL 07-31-2012 [place] [facility] PAIN, SERV EPIGASTRIC [facility]OUND[facility] 30420 SYSTEMIC 07-31-2012 [facility] Y RESPONSE SYNDROME UNSPEC V1269 PERSONAL 07-31-2012 [place] [facility] HISTORY SERV OTHER FOUNDATIO DISEASES RESPIRATORY SYS 514 PULMONARY 07-03-2012 [facility] [place] CONGESTION RADIOLOGY AND HYPOSTASIS 7295 PAIN IN 07-03-2012 JERRI ESPERANZA SOFT TISSUES OF LIMB 7823 EDEMA 07-03-2012 JER[facility] ESPERANZA 5119 UNSPECIFIED 07-01-2012 [facility] [place] PLEURAL RADIOLOGY EFFUSION 18417 OTHER 06-20-2012 [place] [facility] DISEASES OF SERV NASAL FOUNDATIO CAVITY AND SINUSES 5121 IATROGENIC 06-16-2012 [place] [facility] PNEUMOTHROA SERV X [facility]AT[facility] 99905 ACUTE AND 06-16-2012 [place] [facility] CHRON[facility] RESPIRATORY FOUNDATIO FAILURE 08590 SEPTIC 06-16-2012 [place] [facility] SHOCK SERV [facility] 0785 CYTOMEGALOV 06-15-2012 [facility] DISEASE [facility] B 57674 CHEST PAIN 06-15-2012 P[facility]IVE UNSPECIFIED CARE CTR OF THE B 7850 UNSPECIFIED 06-11-2012 [facility] TACHYCARDIA [facility] 4279 UNSPECIFIED 05-17-2012 [place] [facility] CARDIAC SERV DYSRHYTHMIA FOUNDATIO 32582 ACUTE 05-17-2012 [place] [facility] [place]AT[place] SERV FAILURE FOUNDATIO 49141 OTHER 04-24-2012 [facility] BRUNILDA SEPTICEMIA 1124 CANDIDIASIS 04-24-2012 [facility] 5070 PNEUMONITIS 04-24-2012 [facility] INHALATION OF FOOD OR VOMITUS 5100 EMPYEMA 04-24-2012 [facility] FISTULA 5183 PULMONARY 04-22-2012 [facility] A IMAGING ASS 94248 REFLUX 08-03-2011 [facility] ESOPHAGITIS [place] 93727 OTHER 08-03-2011 [facility] SYMPTOMS [place] INVOLVING DIGESTIVE SYSTEM OTHER 490 BRONCHITIS 07-13-2010 [facility] NOT [place] SPECIFIED ACUTE OR CHRONIC 01317 ASTHMA, 07-13-2010 [facility] UNSPECIFIED [place] , UNSPECIFIED STATUS 47112 PAIN IN 07-08-2010 [facility] JOINT, [facility] ANKLE AND FOOT 21051 DISORDER OF 07-08-2010 [place] [facility] BONE AND SERV CARTILAGE FOUNDATIO UNSPECIFIED V454 ARTHRODESIS 07-08-2010 [place] [facility] STATUS [facility] V5489 OTHER 07-08-2010 [facility] AFTERCARE V5409 OTH 06-17-2010 [place] [facility] SERV INVOLVING F[facility]ATIO INTERNAL FIXATION DEVICE V6700 FOLLOW-UP 06-01-2010 [place] [facility] EXAMINATION SERV FOLLOWING FOUNDATIO UNSPEC SURGERY 58192 PRIMARY 05-12-2010 [place] [facility] LOCALIZED SERV OSTEOARTHRO FOUNDATIO SIS ANKLE AND FOOT 97948 PAIN IN 05-12-2010 [place] [facility], SERV LOWER LEG FOUNDATIO V0481 NEED 05-12-2010 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 [place] [facility] RHEUMATISM SERV ANKLE AND FOUNDATIO FOOT 83000 PAIN IN 04-02-2010 [facility] JOINT, AMERIC UPPER ARM HOLDING 14649 OBST 03-12-2010 [facility] P W/ACUTE BRONCHITIS 42448 PAINFUL 03-12-2010 [facility]Y SERVICES 67327 UNSPECIFIED 05-20-2009 [facility] BANERJEE ARTHROPATHY SITE UNSPECIFIED 4011 ESSENTIAL 05-09-2009 [facility] N, BENIGN PSC 58632 OTHER CHEST 05-09-2009 [facility] PAIN GEREMIAS V7651 SPECIAL 05-09-2009 [facility] SCREENING GEREMIAS FOR MALIGNANT NEOPLASMS COLON 7808 GENERALIZED 05-05-2009 [facility] BANERJEE HYPERHIDROS IS 5960 BLADDER 03-18-2009 [facility] [place] INC OBSTRUCTION 2720 PURE 03-17-2009 [facility] HYPERCHOLES GEREMIAS TEROLEMIA 50028 ESOPHAGEAL 03-17-2009 [facility] REFLUX GEREMIAS 51909 PRIMARY 03-17-2009 [facility] LOCALIZED GEREMIAS OSTEOARTHRO SIS OTH SPEC SITES 68007 OT MEC 11-26-2008 [facility] INT ORTHOPEDIC DEVC IMPL&GFT 98675 OT COMPS 11-26-2008 [place] [facility] DUE OTH SERV INTRL FOUNDATIO ORTHOPED DEVICE IMPL&GFT 7271 BUNION 11-11-2008 [facility] 96555 NONSPECIFIC 11-11-[address] [facility] ELECTROCARD IOGRAM V4589 OTHER 11-11-2008 [facility] L STATUS OTHER 70912 EFFUSION OF 09-19-2008 [facility] JOINT ORTHOPAEDIC SURGEONS PSC 73135 VILLONODULA 09-19-2008 [facility] R [facility] SYNOVITIS, ORTHOPAEDIC LOWER LEG SURGEONS PSC 5185 PULMONARY 05-16-2008 [facility] INSUFFICI EMERGENCY CY FOLLOW SERVICES [facility] SURGERY 19737 UNSPECIFIED 05-15-2008 [place] [facility] [place] [address] EXTRINSIC 11-02-2007 PUL[facility] DOSE ASTHMA, PHARMACY UNSPECIFIED 62783 OSTEOARTHRO 07-13-2007 MAKSIM II, SIS UNSPEC NESHA A WHETHER GEN/LOC ANK&FOOT 09938 TENOSYNOVIT 07-13-2007 MAKSIM II, IS OF FOOT NESHA A AND ANKLE Procedures Procedure DOS Code Location Performer Comment O2 CONC 1 E1390 A[facility]LIN VIERA DEL PORT 4 HOME HOME 85%/>02 MEDICAL MEDICAL CONC AT EQUIPME EQUIPME PRSC FLW RATE PRTBLE E0431 AYLIN VIERA GASEOUS 4 HOME HOME O2 SYS MEDICAL MEDICAL RENT; EQUIPME EQUIPME FLWMTR HUMIDFR&M ASK PULMONARY 61787 [facility] STRESS 3 Y Y TESTING [facility] SPMTRY 66175 [place] W/VC 3 MEDICAL NUVIA EXPIRATOR SERV Y RACHEL FOUNDATIO W/WO MXML VOL VNTJ NEBULIZER E0570 AYLIN VIERA WITH 3 HOME HOME COMPRESSO MEDICAL MEDICAL R EQUIPME EQUIPME O2 CONC 1 E1390 AYLIN VIERA DEL PORT 3 HOME HOME 85%/>02 MEDICAL MEDICAL CONC AT EQUIPME EQUIPME PRSC FLW RATE PRTBLE E0431 AYLIN VIERA GASEOUS 3 HOME HOME O2 SYS MEDICAL MEDICAL RENT; EQUIPME EQUIPME FLWMTR HUMIDFR&M ASK THERAPEUT 40451 [place] [facility] IC PX 1/> 3 [facility] AREAS INC INC EACH 15 MIN EXERCISES E-STIM G0283 [place] [facility] 1/> AREAS 3 [facility]OS[facility] OTH THAN INC INC WND CARE PART TX PLAN E-STIM G0283 [place] [facility] 1/> AREAS 3 [facility] MEM HOSP OTH THAN INC INC WND CARE PART TX PLAN APPLICATI 96742 [place] [facility] ON 3 [facility]OS[facility] MODALITY INC INC 1/> AREAS HOT/COLD PACKS THERAPEUT 89678 [place] [facility] IC PX 1/> 3 [facility]OS[facility] AREAS INC INC EACH 15 MIN EXERCISES CONTINUOU E0601 AYLINERNESTO VIERA S 3 HOME HOME POSITIVE MEDICAL MEDICAL AIRWAY EQUIPME EQUIPME PRESSURE DEVICE E-STIM G0283 [place] [facility] 1/> AREAS 3 [facility] MEM [facility]OSP OTH THAN INC INC WND CARE PART TX PLAN THERAPEUT 40219 [place] [facility] [place] PX 1/> 3 [facility]OS[facility] AREAS INC INC EACH 15 MIN EXERCISES SPUTUM 79313 [place] [facility] OBTAINING 3 [facility] SPEC INC INC AEROSOL INDUCED TX SPX CUL BACT 41465 [place] [facility] XCPT 3 [facility] URINE INC INC BLOOD/STO OL AEROBIC ISOL SMR PRIM 06639 [place] [facility] SRC 3 [facility] GRAM/GIEM INC INC SA STAIN BCT FUNGI/LENOIDES L THERAPEUT 09537 [place] [facility] IC PX 1/> 3 [facility] AREAS INC INC EACH 15 MIN EXERCISES E-STIM G0283 [place] [facility] 1/> AREAS 3 [facility] OTH THAN INC INC WND CARE PART TX PLAN SBSQ 25820 [facility] 3 MEDICAL PRE CARE/DAY SERV 25 FOUNDATIO MINUTES RADIOLOGI 46336 [place] [facility] KAMAL[place] C EXAM 3 MEDICAL CHEST 2 SERV VIEWS FOUNDATIO FRONTAL&[place] [address] [place] ARINA MCCOY HEAD/BRAI 3 MEDICAL N W/O SERV CONTRAST FOUNDATIO MATERIAL RADIOLOGI 06043 [place] [facility] C EXAM 3 MEDICAL CHEST 2 SERV VIEWS FOUNDATIO FRONTAL&L ATERAL SBSQ 51703 [facility] 3 MEDICAL PRE CARE/DAY SERV [place] [address] [place] [facility] INFUSION 3 [facility] THERAPY/P INC INC ROPHYLAXI S /DX 1ST TO 1 HR AMB A0427 [facility] SERVICE 3 AMBULANCE AMBULANCE ALS SERVICE SERVICE EMERGENCY TRANSPORT LEVEL 1 GROUND A0425 [facility] MILEAGE 3 AMBULANCE AMBULANCE [place] [address] [place] [facility] INFUSION 3 [facility] THERAPY INC [place] [address] [facility]ASULEAMN [facility] INFUSION 3 [facility] THER INC INC PROPH ADDL SEQUENTIA L TO 1 HR RADIOLOGI 45303 [place] AYRETA 3 MEDICAL EXAMINATI SERV ON CHEST FOUNDATIO SINGLE VIEW FRONTAL CUL BACT 63176 [place] [facility] XCPT 3 [facility] URINE INC INC BLOOD/STO OL AEROBIC ISOL SUSCEPTIB 58351 [place] [facility] LTY STDY 3 [facility] HOS[facility]OS[facility] ANTIMICRB INC INC IAL MICRO/AGA R DILUTJ IAADI 97710 [place] [facility] INFLUENZA 3 [facility] B VIRUS INC INC IAADI 30529 [place] [facility] INFFLUENZ 3 [facility] A A VIRUS INC INC SMR PRIM 01362 [place] SRC 3 [facility] GRAM/GIEM INC INC SA STAIN BCT FUNGI/LEONIDES L INITIAL 94375 [facility] 3 MEDICAL PRE CARE/DAY SERV 70 FOUNDATIO MINUTES CUL BACT 88438 [place] [facility] AEROBIC 3 [facility] ADDL INC INC METHS DEFINITIV E EA ISOL ECG 91274 [place] [facility] ROUTINE 3 [facility] ECG INC INC W/LEAST 12 LDS TRCG ONLY W/O I&R CULTURE 27092 [place] [facility] BACTERIAL 3 [facility] BLOOD INC INC AEROBIC W/ID ISOLATES THERAPEUT 87354 [place] [facility] [place] PX 1/> 3 [facility] AREAS INC INC EACH 15 MIN EXERCISES PHYSICAL 74343 [place] [facility] THERAPY 3 [facility] EVALUATIO INC INC N CREATINE 15099 [place] [facility] KINASE 3 [facility] TOTAL INC INC RADIOLOGI 39155 [facility] [facility] C 3 [facility] EXAMINATI INC INC ON CHEST SINGLE VIEW FRONTAL E-STIM G0283 [facility] 1/> AREAS 3 [facility] OTH THAN INC INC WND CARE PART TX PLAN ECG 05676 [place] BECERR[facility] ROUTINE 3 [facility] W/LEAST P 12 LDS I&[place] [address] [place] [facility] TROPONIN 3 [facility] QUANTITAT INC INC COURTNEY BLOOD 97830 [place] [facility] COUNT 3 [facility] COMPLETE INC INC AUTO&AUTO DIFRNTL WBC CRITICAL 60601 [place] [facility] CARE 3 [facility] ILL/INJUR INC INC ED PATIENT INIT 30-74 MIN BASIC 88310 [place] [facility] METABOLIC 3 [facility] PANEL INC INC CALCIUM TOTAL CREATINE 38428 [place] [facility] KINASE MB 3 [facility]OS[facility] FRACTION INC INC ONLY BLOOD 02668 [place] [facility] GASES ANY 3 [facility]OS[facility] INC INC COMBINATI ON PH PCO2 PO2 CO2 HCO3 COMPREHEN 05046 [facility] SIVE 3 [facility] METABOLIC [facility]INGS HOLDINGS PANEL COLLECTIO 95844 [facility] N VENOUS 3 [facility] BLOOD HOLDINGS HOLDINGS VENIPUNCT URE BLOOD 90648 [facility] COUNT 3 [facility] [place] COMPLETE HOLDINGS HOLDINGS AUTOMATED C-REACTIV 04716 [facility] E PROTEIN 3 [facility] HOLDINGS HOLDINGS NEBULIZER E0570 AYLIN VIERA WITH 3 HOME HOME COMPRESSO MEDICAL MEDICAL R EQUIPME EQUIPME PRTBLE E0431 AYLIN VIERA GASEOUS 3 HOME HOME O2 SYS MEDICAL MEDICAL RENT; EQUIPME EQUIPME FLWMTR HUMIDFR&M ASK O2 CONC 1 E1390 AYLIN VIERA DEL PORT 3 HOME HOME 85%/>02 MEDICAL MEDICAL CONC AT EQUIPME EQUIPME PRSC FLW RATE GASES 43433 [facility] BLOOD PH 3 Y Y DIRECT [facility] ANSHU XCPT PULSE OXIMITRY CT THORAX 53298 [facility] W/O 3 Y Y CONTRAST [facility] MATERIAL ARTERIAL 37271 [facility] PUNCTURE 3 Y Y WITHDRAWA [facility] L BLOOD DX PULMONARY 17245 [place] STRESS 3 [place]ICAL [place] [address] [place] DIFFUSING 3 MEDICAL CAPACITY SERV F[facility] PLETHYSMO 19751 [place] GRAPHY 3 MEDICAL MEDICAL LUNG SERV SERV VOLUMES FOUNDATIO FOUNDATIO W/WO AIRWAY RESIST SPMTRY 88831 [place] KET W/VC 3 MEDICAL EXPIRATOR SERV Y RACHEL FOUNDATIO W/WO MXML VOL VNTJ CONTINUOU E0601 AYLIN VIERA S 3 HOME HOME POSITIVE MEDICAL MEDICAL AIRWAY EQUIPME EQUIPME PRESSURE [facility] [address] [place] SEETHARMR DISCHARGE 3 MEDICAL AJU HAZEL DAY SERV MANAGEMEN FOUNDATIO T 30 MIN/< ECG 49603 [place] [facility] ROUTINE 3 [facility] ECG INC INC W/LEAST 12 LDS TRCG ONLY W/O I&R COMPREHEN 03778 [place] [facility] SIVE 3 [facility] METABOLIC INC INC PANEL PRESSURIZ 45731 [place] [facility] ED/NONPRE 3 [facility] SSURIZED INC INC INHALATIO N TREATMENT AMBULANCE A0429 [facility] SERVICE 3 AMBULANCE AMBULANCE BLS SERVICE SERVICE EMERGENCY TRANSPORT RADIOLOGI 02764 [facility] EXAM 3 MEDICAL CHEST 2 SERV VIEWS FOUNDATIO FRONTAL&L ATERAL GROUND A0425 [facility] MILEAGE 3 AMBULANCE AMBULANCE [place] [address] [facility] ANGIOGRAP 3 MEDICAL HY CHEST SERV W/CONTRAS FOUNDATIO T/NONCONT RAST ECG 79079 [place] ORDOÑEZ JR ROUTINE 3 [facility] W/LEAST P 12 LDS I&R ONLY RADIOLOGI 64874 [place] [facility] C 3 [facility] EXAMINATI INC INC ON CHEST SINGLE VIEW FRONTAL THER 53632 [place] [facility] PROPH/DX 3 [facility] NJX IV INC INC PUSH SINGLE/1S T SBST/DRUG CULTURE 71891 [place] [facility] BACTERIAL 3 [facility] BLOOD INC INC AEROBIC W/ID ISOLATES SUSCEPTIB 88626 [place] [facility] LTY STDY 3 [facility] ANTIMICRB INC INC IAL MICRO/AGA R DILUTJ SMR PRIM 00744 [place] [facility] SRC 3 [facility] GRAM/GIEM INC INC SA STAIN BCT FUNGI/LEONIDES L CUL BACT 68403 [place] [facility] XCPT 3 [facility] URINE INC INC BLOOD/STO OL AEROBIC ISOL BLOOD 47008 [place] [facility] COUNT 3 [facility] COMPLETE INC INC AUTO&AUTO DIFRNTL WBC CUL BACT 56160 [place] [facility] AEROBIC 3 [facility] ADDL INC INC METHS DEFINITIV E EA ISOL ADMN SET A7003 YOUR YOUR SM VOL 3 [facility] PNEUMAT NEBULIZR DISPBL PHRM Q0513 YOUR YOUR DISPENSIN 3 PHARMACY PHARMACY G FEE [employer] INHALATIO N RX; PER 30 DAYS ALBUTEROL J7620 YOUR YOUR TO 2.5 3 PHARMACY PHARMACY [employer] IPRATROPI UM BROM TO 0.5 MG PRTBLE E0431 AYLIN VIERA GASEOUS 3 HOME HOME O2 SYS MEDICAL MEDICAL RENT; EQUIPME EQUIPME FLWMTR HUMIDFR&M ASK O2 CONC 1 E1390 AYLIN VIERA DEL PORT 3 HOME HOME 85%/>02 MEDICAL MEDICAL CONC AT EQUIPME EQUIPME PRSC FLW RATE NEBULIZER E0570 AYLIN VIERA WITH 3 HOME HOME COMPRESSO MEDICAL MEDICAL R EQUIPME EQUIPME RADIOLOGI 07526 [place] C EXAM 3 [facility] CHEST 2 INC INC VIEWS FRONTAL&L ATERAL CONTINUOU E0601 AYLIN AYLIN S 3 HOME HOME POSITIVE MEDICAL MEDICAL AIRWAY EQUIPME EQUIPME PRESSURE DEVICE CREATINE 88572 [place] KINASE MB 3 [facility] FRACTION INC INC ONLY COMPREHEN 35724 [place] [facility] SIVE 3 [facility] METABOLIC INC INC PANEL 3D 63532 [place] [facility] RENDERING 3 [facility] W/INTERP INC INC & POSTPROCE SS SUPERVISI ON CREATINE 42073 [place] [facility] KINASE 3 [place] [address] [place] HEAD/BRAI 3 [facility] N W/O INC INC CONTRAST MATERIAL RHYTHM 50402 [place] ECG 1-3 3 [facility] LEADS INC INC TRACING ONLY W/O I&R ECG 49411 [place] ORDOÑEZ JR ROUTINE 3 [facility] W/LEAST P 12 LDS I&[place] [address] [place] TROPONIN 3 [facility] QUANTITAT INC INC COURTNEY BLOOD 66790 [place] COUNT 3 [facility] COMPLETE INC INC AUTO&AUTO DIFRNTL WBC ECG 02763 [place] ROUTINE 3 [facility] ECG INC INC W/LEAST 12 LDS TRCG ONLY W/O I&R NEBULIZER E0570 AYLIN VIERA WITH 3 HOME [...] PER SESS TO 2 PER DAY BLOOD 62716 [facility] COUNT 3 [facility] [employer] AUTOMATED COMPREHEN 55149 [facility] SIVE 3 [employer] PANEL COLLECTIO 74216 LAB [facility]IDI N VENOUS 3 [facility] BLOOD [employer] HOLDING VENIPUNCT URE C-REACTIV 43956 LAB [facility] LAB HEID[facility] E PROTEIN 3 [...] PER SESS TO 2 PER DAY POLYSOM 17996 [place] [facility] 6/>YRS 3 MEM HOS[facility] MEM [...] TO 2 PER DAY STANDARD K0001 AYLIN ALLENI 3 HOME HOME R MEDICAL MEDICAL EQUIPME EQUIPME BRNCDILAT 34624 [place] RSPSE 3 [facility] SPMTRY INC INC PRE&POST- BRNCDILAT ADMN NEBULIZER E0570 AYLIN VIERA WITH 3 HOME HOME COMPRESSO MEDICAL MEDICAL R EQUIPME EQUIPME O2 CONC 1 E1390 AYLIN VIERA DEL PORT 3 HOME HOME 85%/>02 MEDICAL MEDICAL CONC AT EQUIPME EQUIPME PRSC FLW RATE GAS 19915 [place] DILUT/WAS 3 [facility] HOUT LUNG INC INC VOL W/WO DISTRIB VENT&V PRTBLE E0431 AYLIN VIERA GASEOUS 3 HOME HOME O2 SYS MEDICAL MEDICAL RENT; EQUIPME EQUIPME FLWMTR HUMIDFR&M ASK IRON 18866 [facility] 3 Y Y [facility] COMPREHEN 87165 [facility] 3 Y Y METABOLIC [facility] PANEL [place] [address] UNIVERSIT UNIVERSIT FOLIC 3 Y Y [facility] COLLECTIO 87108 [facility] N VENOUS 3 Y Y BLOOD [facility] VENIPUNCT URE RADIOLOGI 83969 [facility] C EXAM 3 Y Y CHEST 2 [facility] VIEWS FRONTAL&L ATERAL CYANOCOBA 70328 [facility] CLARISSE 3 Y [facility] B-12 RHEUMATOI 61169 [facility] D FACTOR 3 Y Y QUANTITAT [facility] COURTNEY PREALBUMI 81725 [facility] N 3 Y Y HOSPITAL [facility] ANTINUCLE 10637 [facility] LAB HEIDI AR 3 Y [facility] HOLDING S [place] FLUORESCE 97993 [facility] NT 3 Y Y NONNFCT [facility] AGT ANTB SCREEN EA ANTIBODY BLOOD 83724 [facility] COUNT 3 Y Y COMPLETE [facility] AUTO&AUTO DIFRNTL WBC STANDARD K0001 AYLIN VIERA WHEELCHAI 3 HOME [...] CONC AT EQUIPME EQUIPME PRSC FLW RATE POLYSOM 97215 [place] 6/>YRS 3 [facility] SLEEP INC INC W/CPAP 4/> ADDL [facility] 95451 [facility] 3 MEDICAL JAG DAY SERV MANAGEMEN FOUNDATIO T 30 MIN/< SBSQ 38746 [facility] 3 MEDICAL JAG CARE/DAY SERV 25 FOUNDATIO MINUTES RADEX ABD 62657 [place] DISANTIS COMPL 3 MEDICAL SIDDHARTHA AQT ABD SERV W/S/E/D FOUNDATIO VIEWS 1 VIEW CH RADEX ABD 62529 [place] JESICA JAM COMPL 3 MEDICAL AQT ABD SERV W/S/E/D FOUNDATIO VIEWS 1 VIEW [facility] [address] [place] SOHEILA ABDOMINAL 3 MEDICAL DEENA REAL SERV TIME FOUNDATIO W/IMAGE LIMITED INITIAL 23059 [facility] 3 Y OF [place] CARE/DAY [place] 70 INTER MINUTES FULL FACE A7030 AYLIN [...] MEDICAL MEDICAL ADJUSTABL EQUIPME EQUIPME E/FIXED HEIGHT RADIOLOGI 17345 [facility] [place] KOSTELIC C EXAM 3 RADIOLOGY MONTSERRAT CHEST 2 VIEWS FRONTAL&L ATERAL DUP-SCAN 21606 JERRI JERRI XTR VEINS 3 ESPERANZA ESPERANZA COMPLETE BILATERAL STUDY RADIOLOGI 87687 [facility] [place] NOEL C EXAM 3 RADIOLOGY GODFREY CHEST 2 VIEWS FRONTAL&L ATERAL MRI BRAIN 92873 [place] LUKINS BRAIN 3 MEDICAL TIERRA STEM W/O SERV CONTRAST FOUNDATIO MATERIAL SBSQ 95927 [facility] 3 E CARE CARE/DAY CTR OF 15 THE B MINUTES [facility] [address]30 [place] HARLEY INCL 3 MEDICAL OSCAR FLUOR SERV GDNCE DX FOUNDATIO W/CELL WASHG SPX SBSQ 26117 [facility] 3 E CARE CARE/DAY CTR OF 25 THE B MINUTES CLOSED 3324 [facility] BIOPSY OF 3 Y Y [facility]ON[facility] HOSPITAL VENOUS 3893 [facility] CATHETERI 3 Y Y [facility] NOT ELSEWHERE CLASSIFIE D ECG 90828 TARAS NEVAREZ CHI ROUTINE 3 MEDICAL ECG SERV W/LEAST FOUNDATIO 12 LDS I&R ONLY ECG 57811 TARAS HU ROUTINE 3 MEDICAL NAN ECG SERV W/LEAST FOUNDATIO 12 LDS I&R ONLY CONTINUOU E0601 AYLIN VIERA S 2 HOME HOME POSITIVE MEDICAL MEDICAL AIRWAY EQUIPME EQUIPME PRESSURE DEVICE THORACOSC 3320 [facility] LUNG 2 Y Y BIOPSY [facility]PITAL STANDARD K0001 AYLIN VIERA WHEELCHAI 2 HOME HOME R MEDICAL MEDICAL EQUIPME EQUIPME ECG 76624 TARAS NEVAREZ CHI ROUTINE 2 MEDICAL ECG SERV W/LEAST FOUNDATIO 12 LDS I&R ONLY ECG 33464 TARAS ROSENBERG ROUTINE 2 MEDICAL ECG SERV W/LEAST FOUNDATIO 12 LDS I&R ONLY ECG 33405 TARAS NEVAREZ CHI ROUTINE 2 MEDICAL ECG SERV W/LEAST FOUNDATIO 12 LDS I&R ONLY ECG 38244 TARAS HU ROUTINE 2 MEDICAL NAN ECG SERV W/LEAST FOUNDATIO 12 LDS I&R ONLY INSERTION 9604 [facility] OF 2 Y [facility] EAL TUBE CONT 9671 [facility] 2 Y Y [facility] < 96 CONSECUTI VE HOURS RADIOLOGI 96770 [place] DAWNA C 2 MEDICAL TIERRA EXAMINATI IMAGING ON CHEST ASS SINGLE VIEW FRONTAL RADIOLOGI 03339 [facility] 2 MEDICAL TIERRA EXAMINATI IMAGING ON CHEST ASS SINGLE VIEW FRONTAL ADMN SET A7003 YOUR YOUR SM VOL 2 PHARMACY PHARMACY NONFILTR [employer] [employer] PNEUMAT NEBULIZR DISPBL ALBUTEROL J7620 YOUR YOUR TO 2.5 2 PHARMACY PHARMACY [employer] [facility] IPRATROPI UM BROM TO 0.5 MG PHARM G0333 YOUR YOUR DISPEN 2 PHARMACY PHARMACY [employer] [facility] RX; INITIAL 30-DAY SUPPLY ECG 17684 POPPY LOPEZ ROUTINE 2 EMERGENCY VENUS ECG SERVICES W/LEAST 12 LDS I&R ONLY RADIOLOGI 28349 YAZ TONEY C EXAM 2 MEDICAL TIERRA CHEST 2 IMAGING VIEWS ASS FRONTAL&L ATERAL BLOOD 45916 [facility] OCCULT 2 N N PEROXIDAS COMMUNITY COMMUNITY E ACTV HOSPITA HOSPITA QUAL FECES 1-3 SPEC OVA&CHAD 77485 [facility] ITES 2 N N DIRECT COMMUNITY COMMUNITY SMEARS HOSPITA HOSPITA CONCENTRA TION & ID SMR PRIM 66957 [facility] SRC 2 N N GRAM/GIEM COMMUNITY COMMUNITY SA STAIN HOSPITA HOSPITA BCT FUNGI/LEONIDES L SMR PRIM 28874 [facility] SRC CPLX 2 N N SPEC COMMUNITY COMMUNITY STAIN HOSPITA HOSPITA OVA&CHAD ITS BLOOD 68193 CULBERTSO CULBERTSO OCCULT 2 N KALYAN N KALYAN PEROXIDAS E ACTV QUAL FECES 1 DETER COMPREHEN 27249 LAB [facility]I LAB HEIDI SIVE 2 AMERIC AMERIC METABOLIC HOLDING HOLDING PANEL COLLECTIO 06498 LAB [facility] LAB HEIDI N VENOUS 2 AMERIC AMERIC BLOOD HOLDING HOLDING VENIPUNCT URE BLOOD 67946 [facility] LAB HEIDI COUNT 2 AMERIC AMERIC COMPLETE HOLDING HOLDING AUTOMATED C-REACTIV 25553 LAB [facility]I LAB HEIDI E PROTEIN 2 AMERIC AMERIC HOLDING HOLDING C-REACTIV 73682 LAB HEIDI LAB HEIDI E PROTEIN 1 AMERIC AMERIC HOLDING HOLDING BLOOD 45885 LAB HE[facility]I LAB HEIDI COUNT 1 AMERIC AMERIC COMPLETE HOLDING HOLDING AUTOMATED COLLECTIO 12471 [facility] LAB HEIDI N VENOUS 1 AMERIC AMERIC BLOOD HOLDING HOLDING VENIPUNCT URE COMPREHEN 79477 LAB [facility] LAB HEIDI SIVE 1 AMERIC AMERIC METABOLIC HOLDING HOLDING PANEL RADEX 09004 UN[facility]IT UNIVERSIT ANKLE 1 Y Y COMPLETE HOSPITAL HOSPITAL MINIMUM 3 VIEWS WALKING L4360 [facility] BOOT 1 PNEUMATC &/ VACUUM PREFAB CUSTM FIT TRANSFERA 67497 [facility] OF [facility] SE 1 [place] [facility] [place] [facility] ASPARTATE AMINO AST SGOT COLLECTIO 68163 [facility] N VENOUS 1 [facility] BLOOD VENIPUNCT URE LIPID 26432 [facility] PANEL 1 [place] [facility] [place] [facility] CAST Q4038 TARAS MARTINEZ SUPPLIES 1 MEDICAL KAMALA SHORT LEG SERV CAST FOUNDATIO ADULT FIBERGLAS S APPLICATI 38227 [place] TARAS ON SHORT 1 MEDICAL MEDICAL LEG CAST SERV SERV WALKING/A FOUNDATIO FOUNDATIO MBULATORY RADIOLOGI 95031 [facility] 1 Y Y [facility] FOOT 2 VIEWS CAST Q4038 TARAS MARTINEZ SUPPLIES 1 MEDICAL KAMALA SHORT LEG SERV CAST FOUNDATIO ADULT FIBERGLAS S APPLICATI 05518 [place] TARAS ON SHORT 1 MEDICAL MEDICAL LEG CAST SERV SERV BELOW FOUNDATIO FOUNDATIO KNEE-TOE [facility] G0378 [facility] OBSERVATI 0 Y Y ON HOSPITAL HOSPITAL SERVICE PER HOUR PHYSICAL 69361 [facility] 0 Y [facility] N [address]370 [place] MADELIAN[place]OTT GUIDANCE 0 MEDICAL JUS NEEDLE SERV PLACEMENT FOUNDATIO IMG S&I ARTHRODES 32078 [facility] IS 0 Y [facility] ANESTHESI 27690 TARAS GERALD A ON BONY 0 MEDICAL JUS PELVIS SERV FOUNDATIO INJECTION 17687 [place] 0 MEDICAL JUS ANESTHETI SERV C AGENT FOUNDATIO SCIATIC NRV SINGLE INJECTION 41844 [facility] JUS ANESTHETI SERV C AGENT FOUNDATIO FEMORAL NERVE SINGLE BONE 89629 [facility] GRAFT ANY 0 Y Y DONOR HOSPITAL HOSPITAL AREA MAJOR/LAR GE FLUOROSCO 76492 [facility] PY SPX >1 0 Y Y HOUR HOSPITAL HOSPITAL PHYS/QHP TIME CUL BACT 39066 [facility] LAB HEIDI XCPT 0 AMERIC AMERIC URINE HOLDING HOLDING BLOOD/STO OL AEROBIC ISOL CULTURE 44921 [facility] LAB HEIDI BACTERIAL 0 AMERIC AMERIC ANY HOLDING HOLDING SOURCE ANAEROBIC ISO&ID SMR PRIM 06131 [facility] LAB HEIDI SRC 0 AMERIC AMERIC GRAM/GIEM HOLDING HOLDING SA STAIN BCT FUNGI/LEONIDES L CREATINE 10372 [place] KINASE 0 [facility] TOTAL INC INC THER 84207 [place] PROPH/DX 0 [facility] NJX IV INC INC PUSH SINGLE/1S T SBST/DRUG BLOOD 86187 [place] COUNT 0 [facility] COMPLETE INC INC AUTO&[place] [address] [place] TROPONIN 0 [facility] QUANTITAT INC INC COURTNEY ECG 49247 POPPY MORRISSEY ROUTINE 0 EMERGENCY III TRISTA ECG SERVICES W/LEAST 12 LDS I&R ONLY BASIC 24238 [place] METABOLIC 0 [facility] PANEL INC INC CALCIUM TOTAL CREATINE 95521 [place] STEVENSON KINASE MB 0 [facility] HOS[facility] FRACTION INC INC ONLY RADIOLOGI 38933 [facility] MEDICAL TIERRA EXAMINATI IMAGING ON CHEST ASS SINGLE VIEW FRONTAL PRESSURIZ 74453 [place] ED/NONPRE 0 [facility] SSURIZED INC INC INHALATIO N TREATMENT ECG 16734 [place] ROUTINE 0 [facility] ECG INC INC W/LEAST 12 LDS TRCG ONLY W/O I&R DUP-SCAN 33741 [place] STEVENSON XTR VEINS 0 [facility] INC INC UNILATERA L/LIMITED STUDY 3D 50878 VIRGINIASULEMAN COLEMAN RENDERING 0 [facility] INC INC W/INTERP& POSTPROC DIFF WORK STATION [place] LOWER 44530 [place] EXTREMITY 0 [facility] W/O INC INC CONTRAST MATERIAL INJECTION J1040 MONICA MOSLEYO 9 N, GEREMIAS DOUGHERTYPRE DNISOLONE ACETATE 80 MG CV STRS 16924 MONICA MOSLEYO TST 9 N, GEREMIAS DOUGHERTY&/OR RX CONT ECG W/O I&R CV STRS 46214 [facility] TST 9 N N XERS&/OR COMMUNITY COMMUNITY RX CONT HOSPITAL HOSPITAL ECG TRCG ONLY CV STRS 05670 MONICA MOSLEYO TST 9 N, GEREMIAS N, GEREMIAS XERS&/OR RX CONT ECG I&R ONLY TECHNETIU A9500 [facility] TC-99M 9 N N SESTAMIBI [facility] DX PER HOSPITAL HOSPITAL STUDY DOSE MYOCRD 49818 [facility] ST[facility] 9 N N [facility] QUAL/RENEE STD MYOCRD 74915 [facility] IMG 9 N N TOMOG [facility] SPECT [facility] STD BLOOD 66382 MONICA ANDERSON OCCULT 9 N, GEREMIAS DOUGHERTY PEROXIDAS E ACTV QUAL FECES 1 DETER MYOCRD 28145 [facility] STD 9 N N EJEC [facility] 51304 [facility] N VENOUS 9 [facility] BLOOD VENIPUNCT URE IRON 57252 [facility] BINDING 9 [facility] [address] [facility] IRON 9 [facility] COLLECTIO 60771 [facility] N VENOUS 9 [facility] BLOOD VENIPUNCT URE BLOOD 61094 [facility] OF COUNT 9 [facility] COMPLETE AUTO&AUTO DIFRNTL WBC INFLUENZA G9141 MONICA ANDERSON A H1N1 9 N, GEREMIAS DOUGHERTY IMMUNIZAT ION ADMINISTR ATION PWR E2365 ALLIED ALLIED WHLCHAIR 9 HOME HOME ACSS U-1 MEDICAL, MEDICAL, SEALED INC. INC. LEAD ACID BATTRY EA REPR/SRVC K0739 ALLIED ALLIED DME NOT 9 HOME HOME O2 RQR MEDICAL, MEDICAL, TECH INC. INC. CMPNT PER 15 MINS CUL BACT 40508 LAB [facility] LAB HEIDI XCPT 9 AMERIC AMERIC URINE HOLDING HOLDING BLOOD/STO OL AEROBIC ISOL SUSCEPTIB 22331 [facility] HE[facility] LTY STDY 9 AMERIC AMERIC ANTIMICRB HOLDING HOLDING IAL MICRO/AGA R DILUTJ SMR PRIM 36733 [facility] HE[facility]I SRC 9 AMERIC AMERIC GRAM/GIEM HOLDING HOLDING SA STAIN BCT FUNGI/LEONIDES L CULTURE 61867 [facility] LAB HEIDI BACTERIAL 9 AMERIC AMERIC ANY HOLDING HOLDING SOURCE ANAEROBIC ISO&ID COLLECTIO 28353 [facility] N VENOUS 9 [facility] BLOOD VENIPUNCT URE LIPID 18711 [facility] PANEL 9 [facility] INC COMPREHEN 20858 [facility] SIVE 9 [facility] [place] [address] [facility] PROSTATE 9 [facility] SPECIFIC ANTIGEN TOTAL INJECTION J3010 [facility] FENTANYL 9 Y Y CITRATE [facility] 0.1 MG LEVEL I 40251 [facility] SURG 9 Y Y PATHOLOGY [facility] GROSS EXAMINATI ON ONLY INJECTION J2270 [facility] MORPHINE 9 Y Y SULFATE [facility] UP TO 10 MG INJECTION J0690 [facility] 9 Y Y CEFAZOLIN [facility] SODIUM 500 MG INJECTION J2175 [facility] 9 Y Y MEPERIDIN [facility] E HCL PER 100 MG RINGERS J7120 [facility] LACTATE 9 Y Y INFUSION [facility] UP TO 1000 CC FLUOROSCO 19239 [facility] PY SPX >1 9 Y Y HOUR HOSPITAL HOSPITAL PHYS/QHP TIME CUL BACT 67629 [facility] XCPT 9 Y Y URINE [facility] BLOOD/STO OL AEROBIC ISOL REMOVAL 03547 [facility] IMPLANT 9 Y Y DEEP HOSPITAL HOSPITAL SMR PRIM 53126 [facility] SRC 9 Y Y GRAM/GIEM HOSPITAL [facility] SA STAIN BCT FUNGI/LEONIDES L BLOOD 43800 [facility] COUNT 9 Y Y COMPLETE [facility] AUTOMATED ECG 32735 TARAS CHASE, ROUTINE 9 MEDICAL MARIXA G ECG SERV W/LEAST FOUNDATIO 12 LDS I&R ONLY BASIC 25418 [facility] METABOLIC 9 Y Y PANEL [facility] CALCIUM TOTAL COLLECTIO 43246 [facility] N VENOUS 9 Y Y BLOOD [facility] VENIPUNCT URE RADEX 31933 [facility] FOOT 9 Y Y COMPLETE [facility] MINIMUM 3 VIEWS ECG 69877 [facility] ROUTINE 9 Y Y ECG [facility] W/LEAST 12 LDS TRCG ONLY W/O I&R INJ J0702 SASKIA SCHAEFFER BETAMETHA 9 [facility] II, NESHA SONE ORTHOPAED A ACETATE & IC SURGEONS PHOSPHATE PSC 3 MG COLLECTIO 01494 [facility] N VENOUS 9 Y Y BLOOD [facility] VENIPUNCT URE ARTHROCEN 26725 SASKIA SCHAEFFER TESIS 9 H II, NESHA ASPIR&/IN ORTHOPAED A J MAJOR IC JT/BURSA SURGEONS W/O US PSC CUL BACT 29009 [facility] XCPT 9 Y Y URINE [facility] BLOOD/STO OL AEROBIC ISOL SMR PRIM 22449 [facility] SRC 9 Y Y GRAM/GIEM [facility] SA STAIN BCT FUNGI/LEONIDES L CELL 16549 [facility] COUNT 9 Y Y [facility] FLUIDS W/DIFFERE NTIAL COUNT REP/NONRO E1340 ALLIED ALLIED UTINE 9 HOME HOME SRVC DME MEDICAL, MEDICAL, RQR SKL INC. INC. TECH LABR-15 MIN PWR E2365 ALLIED ALLIED WHLCHAIR 9 HOME HOME ACSS U-1 MEDICAL, MEDICAL, SEALED INC. INC. LEAD ACID BATTRY EA SBSQ 89959 [facility] 8 EMERGENCY N, CARE/DAY SERVICES TADARRO 25 MINUTES ASSOCIATE S INITIAL 35547 [facility] INPATIENT 8 EMERGENCY N, CONSULT SERVICES TADARRO NEW/ESTAB PT 110 ASSOCIATE MIN S ANESTH 38267 COMMONKRANTHI CAUSEY 8 [facility] REEMA Harvey ANESTHESI ARTHROSCO A PSC PIC PROC KNEE JOINT LEVEL III 16968 [place] ANN, SURG 8 MEDICAL TIM E PATHOLOGY SERV FOUNDATIO GROSS&VENUS ROSCOPIC EXAM ANES 96630 [place] HIRO, LOWER 8 ANESTHESI JENNIFER Vieira INTESTINE A GROUP PSC ENDOSCOPY DISTAL DUODENUM COLONOSCO 67137 [facility], PY FLX DX 8 [place] RICHY Bird W/COLLJ GASTROENT SPEC WHEN PFRMD CELL 84016 [facility] UNIVERS COUNT 8 Y Y MISC BODY [facility] FLUIDS W/DIFFERE NTIAL COUNT SMR PRIM 39345 [facility] SRC 8 Y Y GRAM/GIEM HOSPITAL HOSPITAL SA STAIN BCT FUNGI/LEONIDES L CUL BACT 94008 [facility] XCPT 8 Y Y URINE [facility] BLOOD/STO OL AEROBIC ISOL ADMN SET A7003 PULMO PULMO SM VOL 8 DOSE DOSE NONFILTR PHARMACY PHARMACY PNEUMAT NEBULIZR DISPBL SMALL A7004 PULMO PULMO VOLUME 8 DOSE DOSE NONFILTR PHARMACY PHARMACY PNEUMATIC NEBULIZER DISPBL PHRM Q0514 PULMO PULMO DISPENSIN 8 DOSE DOSE G FEE PHARMACY PHARMACY INHALATIO N RX; PER 90 DAYS ALBUTEROL J7620 PULMO PULMO TO 2.5 [...] DOSE NONFILTR PHARMACY PHARMACY PNEUMAT NEBULIZR DISPBL DUP-SCAN 24740 [facility] LXTR 8 N N ART/[facility] COMPL BI STUDY PHRM Q0513 PULMO PULMO [...] NONFILTR PHARMACY PHARMACY PNEUMAT NEBULIZR DISPBL RADIOLOGI 14789 MAKSIM MAKSIM C 8 II, NESHA II, NESHA EXAMINATI A A ON KNEE 1/2 VIEWS RADIOLOGI 28219 MAKSIM MAKSIM C EXAM 8 II, NESHA II, NESHA KNEE A A COMPLETE 4/MORE VIEWS PHR Q0513 PULMO PULMO DISPENSIN 8 DOSE DOSE G FEE PHARMACY PHARMACY INHALATIO N RX; PER 30 DAYS ALBUTEROL J7620 PULMO PULMO TO 2.5 8 DOSE DOSE MG & PHARMACY PHARMACY IPRATROPI UM BROM TO 0.5 MG Encounters Encounter Start End Date Code Location Performer Type Date [facility] 3 3 Y [facility] [place] [facility] 3 [facility] [place] - [facility] 3 [facility] 98553 TARAS SALAZAR DEPT 3 3 MEDICAL JORGE VISIT SERV HIGH FOUNDATIO SEVERITY& THREAT [facility] UNIVERSIT - 3 3 Y [facility] [place] - 3 3 [facility] OFF[facility] 52832 ARTHRITIS ALBERTO [facility] 3 3 CENTER T [facility]ISIT OF 25 [facility] 3 3 Y [facility] [place] - 3 3 [facility] EMERGENC[facility] 04635 POPPY SANTA DEPT 3 3 EMERGENCY VISIT SERVICES HIGH SEVERITY& THREAT [facility] [place]IR[place] - 3 3 [facility] OFF[facility] 40516 A Candice LAZCANO OUTPATIEN 3 3 FILEMON SHAH T VISIT [facility] 15 MINUTES EMERGENCY 77918 POPPY SANTA DEPT 3 3 EMERGENCY VISIT SERVICES HIGH SEVERITY& THREAT [facility] [place]IR[place] - 3 3 [facility] OUT[facility] EMERGENCY 34431 [place] 3 3 [facility] T VISIT HIGH/URGE NT SEVERITY OFFICE 56302 ARTHRITIS ALBERTO RIT OUTPATIEN 3 3 CENTER T VISIT OF 25 [facility] OFFICE 91030 Avtar LAZCANO OUTPATIEN 3 3 FILEMON SHAH T VISIT [facility] 15 [facility] [place] - 3 3 [facility] OFF[facility] 97167 ARTHRITIS ALBERTO RIT OUTPATIEN 3 3 CENTER T VISIT OF 10 [facility] [place] - 3 3 [facility] [place] - 3 3 [facility] T OFFICE 11649 ARTHRITIS ALBERTO RIT OUTPATIEN 3 3 CENTER T VISIT OF 25 [facility] [place] - 3 3 [facility] UNIVERSIT - 3 3 Y [facility] T OFFICE 36044 TARAS THOMPSON OUTPATIEN 3 3 MEDICAL JAM T VISIT SERV 40 [facility] [place] - 3 3 [facility] OUTPATIEN [facility] EMERGENCY 08836 TARAS LANTIGUA DEPT 3 3 MEDICAL WORKERS COMPENSATION LEGAL SECRETARY VISIT SERV HIGH FOUNDATIO SEVERITY& THREAT [facility] - 3 3 Y INPATIENT HOSPITAL OFFICE 16160 TARAS GATES OUTPATIEN 3 3 MEDICAL YATACO T VISIT SERV ANG 25 [facility] UNIVERSIT - 2 3 Y INPATIENT HOSPITAL EMERGENCY 43445 POPPY LOPEZ DEPT 2 2 EMERGENCY VENUS VISIT SERVICES HIGH SEVERITY& THREAT [facility] 10859 POPPY SANTA DEPT 2 2 EMERGENCY VISIT SERVICES HIGH SEVERITY& THREAT [facility] [place] [address] 2 N [facility] HOSPITA OFFICE 58536 CULBERTSO CULBERTSO OUTPATIEN 2 2 N KALYAN N KALYAN T VISIT 15 MINUTES OFFICE 63708 CULBERTSO CULBERTSO OUTPATIEN 1 1 N KALYAN N KALYAN T VISIT 15 [facility] UNIVERSIT - 1 1 Y [facility] - 1 1 Y [facility] - 0 0 Y [facility] OFFICE [id number] CULBERTSO CULBERTSO OUTPATIEN 0 0 N KALYAN N KALYAN T VISIT 15 MINUTES OFFICE 59941 TARAS MARTINEZ OUTPATIEN 0 0 MEDICAL [place]AMALA T VISIT SERV 15 [facility] EMERGENCY 97359 [place] 0 0 [facility] DEPARTMEN INC T VISIT MODERATE SEVERITY EMERGENCY 05843 POPPY MORRISSEY DEPT 0 0 EMERGENCY III [facility] VISIT SERVICES HIGH SEVERITY& THREAT [facility] [place] - 0 0 [facility] OUTPATIEN [facility] T OFFICE 92433 TARAS MARTINEZ OUTPATIEN 0 0 MEDICAL [place] T VISIT SERV 15 [facility] [place] - 0 0 [facility] OUTPATIEN INC T EMERGENCY 38960 [place] 0 0 [facility] DEPARTMEN INC T VISIT LOW/MODER SEVERITY OFFICE 47898 CULBERTSO CULBERTSO OUTPATIEN 9 9 N, GEREMISA DOUGHERTY VISIT 15 MINUTES [facility] 38984 CULBERTSO CULBERTSO OUTPATIEN 9 9 N, GEREMIAS DOUGHERTY VISIT 15 MINUTES OFFICE 35205 CULBERTSO CULBERTSO OUTPATIEN 9 9 N, GEREMIAS DOUGHERTY VISIT 25 MINUTES OFFICE 65958 CULBERTSO CULBERTSO OUTPATIEN 9 9 NGEREMIAS ROBERT T VISIT 15 MINUTES [facility]OSPITAL [facility] - 9 9 Y [facility] 59215 KAM ENCARNACION 9 9 MEDICAL TONO Marley ION SERV NEW/ESTAB FOUNDATIO PATIENT 40 MIN [facility] UNIVERSIT [facility] 9 9 Y [facility] 52904 [facility] 9 9 [facility] CLEMONS T VISIT ORTHOPAED A 15 IC MINUTES [facility] UN[facility]ERS[facility] - 9 9 Y [facility]IT - 8 8 Y [facility] OFF[facility] 82584 CULBERTSO CULBERTSO [facility] 8 8 NGEREMIAS ROBERT T VISIT 15 MINUTES [facility] 53226 [facility] 8 8 IINESHA II, GLEN T VISIT A A 15 MINUTES
--- OUTSIDE RECORDS SUMMARY | 2016-09-28 10:30 | External Medical Summary Rpt ---
Author Author , Organization [employer] Address Unknown Phone Unavailable Care Team Providers Care Physician Assistant Surgery Name Role Phone A Candice COLBERT MD [...] SOHEILA DEENA [facility] Unavailable Unavailable SERVICE, [facility] Unavailable Unavailable SERVICE, [facility] CAMILLE KET, CAMILLE KET Unavailable Unavailable GRZEGORZ FOREIGN EXCHANGE STUDENT COORDINATOR, GRZEGORZ Unavailable Unavailable FOREIGN EXCHANGE STUDENT COORDINATOR TITI JAG, TITI Unavailable Unavailable JAG [facility] [...] NAN JESSICA [facility], JESSICA Unavailable Unavailable [facility] Unavailable Unavailable H[facility]PITA, [facility] Unavailable [facility]available [facility], [facility] Unavailable [facility]available [facility] Unavailable Unavailable INC, [facility] Unavailable [facility]available HOSPITAL P, [facility] P DUBOIS KAMALA, DUBOIS KAMALA Unavailable Unavailable RENA, MARIXA G, RENA, Unavailable Unavailable MARIXA G [facility] HARLEY OSCAR, Unavailable Unavailable [...] HOLDINGS, [facility], Unavailable Unavailable [facility] JUAN KAMALA, Unavailable Unavailable JUAN KAMALA TONO MARTINEZ, Unavailable Unavailable TONO MARTINEZ HAYWOOD MARION, HAYWOOD Unavailable Unavailable MARION JESICA JAM, JESICA JAM Unavailable Unavailable TIAGO JR DWI, TIAGO Unavailable Unavailable JR DWI LUKINS TIERRA, LUKINS Unavailable Unavailable TIERRA [facility] Unavailable Unavailable SERVICES, [facility] MAKSIM II, NESHA A, Unavailable [...] SADIE GIRARD PRE, SHAJI Unavailable Unavailable PRE [facility], Unavailable Unavailable [facility] Unavailable Unavailable [facility], [facility] INTER GERALD MINA, Unavailable Unavailable [...] SERV PULMONARY FOUNDATIO FIBROSIS 7245 UNSPECIFIED 03-19-2013 [facility] 11550 OTHER 03-19-2013 [facility] [place] [address] OBSTRUCTIVE 03-10-2013 [facility] APNEA MEDICAL EQUIPME 60274 OTHER 03-07-2013 [place] [facility] LUNG NOT INC ELSEWHERE CLASSIFIED 7242 LUMBAGO 03-06-2013 [facility] INC V571 OTHER 03-06-2013 [facility] THERAPY INC 72210 OTHER 03-01-2013 [place] [facility] CONDITIONS SERV OF BRAIN [facility] 7140 RHEUMATOID 03-01-2013 [place] [facility] ARTHRITIS SERV [facility] 7840 HEADACHE 03-01-2013 [facility] 35995 DIARRHEA 03-01-2013 [facility] 7930 NONSPECIFIC 03-01-2013 [place] [facility] AB[place] FNDNG SERV RAD & OTH FOUNDATIO EXM SKULL & HEAD E8889 UNSPECIFIED 03-01-2013 [place] [facility] FALL [place] [facility] 38593 OTHER 02-28-2013 [place] [facility] CHRONIC [facility] PAIN F[facility] 4019 UNSPECIFIED 02-28-2013 [place] [facility] ESSENTIAL SERV HYPERTENSIO FOUNDATIO N 35631 FEVER 02-28-2013 [place] [facility] UNSPECIFIED SERV [place] 77546 OTHER 02-28-2013 [place] [facility] NONSPECIFIC SERV ABNORMAL FOUNDAT[facility] FINDING OF LUNG FIELD 412 OLD 02-27-2013 [facility] INFARCTION 59160 CORONARY 02-27-2013 [facility] OSIS [place] CORONARY ARTERY 4829 UNSPECIFIED 02-27-2013 [facility] PNEUMONIA SERVICE 5184 UNSPECIFIED 02-27-2013 [place] [facility] [place] [facility] EDEMA OF FOUNDATIO LUNG 5849 ACUTE 02-27-2013 [facility] FAILURE UNSPECIFIED 81861 RHEUMATOID 02-27-2013 [facility] V4361 SHOULDER 02-27-2013 [place] [facility] REPLACEMENT F[facility]AT[facility] BY OTHER MEANS V462 DEPENDENCE 02-27-2013 [facility] FOR SUPPLEMENTA L OXYGEN 33824 OBSTRUCTIVE 02-26-2013 [facility] P WITH EXACERBATIO N V5869 LONG-TERM 02-20-2013 [facility] (CURRENT) CENTER OF USE OF LEXINGTO OTHER MEDICATIONS V6751 F/U EXAM 02-20-2013 [facility] FOLLOW CMPL [place] [facility] W/HIGH-RISK MED NEC 23296 COR 02-12-2013 [facility] UNSPEC TYPE VESSEL TULALIP/RAUL T 4940 BRONCHIECTA 01-31-2013 [place] [facility] SIS WITHOUT SERV ACUTE FOUNDATIO EXACERBATIO N 24981 IDIOPATHIC 01-31-2013 [facility] 7856 ENLARGEMENT 01-31-2013 [place] [facility] OF LYMPH SERV NODES FOUNDATIO 98885 SHORTNESS 01-31-2013 [place] [facility] BREATH SERV F[facility] 58715 OTHER 01-31-2013 [facility] RESPIRATORY AMBULANCE SERVICE COMPLICATIO NS 0529 VARICELLA 01-06-2013 A Candice PINZON MD PSC MENTION OF COMPLICATIO N 7862 COUGH 01-06-2013 A Candice COLBERT MD PSC 4660 ACUTE 11-06-2012 A Candice COLBERT BRONCHITIS PSC V5812 ENCOUNTER 09-25-2012 [facility] FOR CENTER OF ANTINEOPLAS LEXINGTO TIC IMMUNOTHERA PY 2859 UNSPECIFIED 08-31-2012 [facility] 4841 PNEUMONIA 08-31-2012 [place] [facility] IN [facility] CYTOMEGALIC FOUNDATIO INCLUSION DISEASE 5168 OTH SPEC 08-31-2012 [place] [facility] ALVEOL&DEONNA SERV ETOALVEOL FOUNDATIO PNEUMONOPAT HIES 72854 NAUSEA WITH 08-02-2012 [place] [facility] VOMITING SERV [facility] V1209 PERSONAL HX 08-02-2012 [place] [facility] [place] INFECTIOUS& FOUNDATIO PARASITIC DISEASE 2724 OTHER AND 07-31-2012 [facility] HYPERLIPIDE ALEKSANDAR 5589 OTH&UNSPEC 07-31-2012 [place] [facility] NONINFECTIO SERV US FOUNDATIO GASTROENTER ITIS&COLITI S 55923 VOMITING 07-31-2012 [facility] INTER 09373 ABDOMINAL 07-31-2012 [place] [facility] PAIN, SERV EPIGASTRIC FOUNDAT[facility] 08151 SYSTEMIC 07-31-2012 [facility] Y RESPONSE SYNDROME UNSPEC V1269 PERSONAL 07-31-2012 [place] [facility] HISTORY SERV OTHER FOUNDATIO DISEASES RESPIRATORY SYS 514 PULMONARY 07-03-2012 [facility] [place] CONGESTION RADIOLOGY AND HYPOSTASIS 7295 PAIN IN 07-03-2012 JER[facility] ESPERANZA SOFT TISSUES OF LIMB 7823 EDEMA 07-03-2012 [facility] ESPERANZA 5119 UNSPECIFIED 07-01-2012 [facility] [place] PLEURAL RADIOLOGY EFFUSION 78054 OTHER 06-20-2012 [place] [facility] DISEASES OF SERV NASAL FOUNDATIO CAVITY AND SINUSES 5121 IATROGENIC 06-16-2012 [place] [facility] PNEUMOTHROA SERV X FOUNDATIO 01989 ACUTE AND 06-16-2012 [place] [facility] CHRON[facility] RESPIRATORY FOUNDATIO FAILURE 96401 SEPTIC 06-16-2012 [place] [facility] SHOCK SERV [facility] 0785 CYTOMEGALOV 06-15-2012 [facility] DISEASE [facility] 94609 CHEST PAIN 06-15-2012 P[facility] UNSPECIFIED CARE CTR OF THE B 7850 UNSPECIFIED 06-11-2012 [place] [facility] SERV TACHYCARDIA F[facility] 4279 UNSPECIFIED 05-17-2012 [place] [facility] CARDIAC SERV DYSRHYTHMIA FOUNDATIO 01659 ACUTE 05-17-2012 [place] [facility] [place]AT[place] SERV FAILURE FOUNDATIO 20981 OTHER 04-24-2012 [facility] BRUNILDA SEPTICEMIA 1124 CANDIDIASIS 04-24-2012 [facility] 5070 PNEUMONITIS 04-24-2012 [facility] INHALATION OF FOOD OR VOMITUS 5100 EMPYEMA 04-24-2012 [facility] FISTULA 5183 PULMONARY 04-22-2012 [facility] A IMAGING ASS 99654 REFLUX 08-03-2011 [facility] ESOPHAGITIS KALYAN 62787 OTHER 08-03-2011 [facility] SYMPTOMS [facility] INVOLVING DIGESTIVE SYSTEM OTHER 490 BRONCHITIS 07-13-2010 [facility] NOT [place] SPECIFIED ACUTE OR CHRONIC 21854 ASTHMA, 07-13-2010 [facility] UNSPECIFIED [place]AN , UNSPECIFIED STATUS 69564 PAIN IN 07-08-2010 [facility], [facility] ANKLE AND FOOT 35021 DISORDER OF 07-08-2010 [place] [facility] AND SERV CARTILAGE FOUNDATIO UNSPECIFIED V454 ARTHRODESIS 07-08-2010 [place] [facility] STATUS [facility] V5489 OTHER 07-08-2010 [facility] AFTERCARE V5409 OTH 06-17-2010 [facility] SERV INVOLVING FOUNDATIO INTERNAL FIXATION DEVICE V6700 FOLLOW-UP 06-01-2010 [place] [facility] EXAMINATION SERV FOLLOWING FOUNDATIO UNSPEC SURGERY 02886 PRIMARY 05-12-2010 [place] [facility] LOCALIZED SERV OSTEOARTHRO FOUNDATIO SIS ANKLE AND FOOT 59995 PAIN IN 05-12-2010 [place] [facility] JO[facility], SERV LOWER LEG FOUNDATIO V0481 NEED 05-12-2010 [facility] C VACCINATION &INOCULATIO N FLU V5849 OTHER 05-12-2010 [place] [facility] SPECIFIED SERV AFTERCARE FOUNDATIO FOLLOWING SURGERY 4659 ACUTE URIS 04-17-2010 [facility] OF [place] UNSPECIFIED SITE 17685 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 [place] [facility] RHEUMATISM SERV ANKLE AND FOUNDATIO FOOT 28089 PAIN IN 04-02-2010 [facility] JOINT, [employer] [employer]ING 32516 OBST 03-12-2010 [facility] P W/ACUTE BRONCHITIS 21604 PAINFUL 03-12-2010 [facility] 47775 UNSPECIFIED 05-20-2009 GER[facility] BANERJEE ARTHROPATHY SITE UNSPECIFIED 4011 ESSENTIAL 05-09-2009 [facility] N, BENIGN PSC 03439 OTHER CHEST 05-09-2009 [facility] PAIN GEREMIAS V7651 SPECIAL 05-09-2009 [facility] SCREENING GEREMIAS FOR MALIGNANT NEOPLASMS COLON 7808 GENERALIZED 05-05-2009 [facility] BANERJEE HYPERHIDROS IS 5960 BLADDER 03-18-2009 [facility] INC OBSTRUCTION 2720 PURE 03-17-2009 [facility] HYPERCHOLES GEREMIAS TEROLEMIA 77471 ESOPHAGEAL 03-17-2009 [facility] REFLUX GEREMIAS 20137 PRIMARY 03-17-2009 [facility] LOCALIZED GEREMIAS OSTEOARTHRO SIS OTH SPEC SITES 07349 OT MEC 11-26-2008 [facility] INT ORTHOPEDIC DEVC IMPL&GFT 79781 OT COMPS 11-26-2008 [place] [facility] DUE OTH SERV INTRL FOUNDATIO ORTHOPED DEVICE IMPL&GFT 7271 BUNION 11-11-2008 [facility] 74807 NONSPECIFIC 11-11-2008 [facility] ELECTROCARD IOGRAM V4589 OTHER 11-11-2008 [facility] L STATUS OTHER 31607 EFFUSION OF 09-19-2008 [facility] JOINT ORTHOPAEDIC SURGEONS PSC 22357 VILLONODULA 09-19-2008 [facility] SYNOVITIS, ORTHOPAEDIC LOWER LEG SURGEONS PSC 5185 PULMONARY 05-16-2008 [facility]LLOW [facility] SURGERY 92332 UNSPECIFIED 05-15-2008 [place] [facility] [place] [address] EXTRINSIC 11-02-2007 [facility] DOSE ASTHMA, PHARMACY UNSPECIFIED 22105 OSTEOARTHRO 07-13-2007 MAKSIM II, SIS UNSPEC NESHA A WHETHER GEN/LOC ANK&FOOT 22722 TENOSYNOVIT 07-13-2007 MAKSIM II, IS OF FOOT NESHA A AND ANKLE Procedures Procedure DOS Code Location Performer Comment O2 CONC 1 E1390 AYLIN VIERA DEL PORT 4 HOME HOME 85%/>02 MEDICAL MEDICAL CONC AT EQUIPME EQUIPME PRSC FLW RATE PRTBLE E0431 AYLIN VIERA GASEOUS 4 HOME HOME O2 SYS MEDICAL MEDICAL RENT; EQUIPME EQUIPME FLWMTR HUMIDFR&M ASK PULMONARY 84547 [facility] STRESS [address] [facility] SPMTRY 24449 [place] W/VC 3 MEDICAL NUVIA EXPIRATOR [...] RENT; EQUIPME EQUIPME FLWMTR HUMIDFR&M ASK THERAPEUT 81564 [place] [facility] [place] PX 1/> 3 [facility] AREAS INC INC EACH 15 MIN EXERCISES E-STIM G0283 [place] [facility] 1/> AREAS 3 [facility] OTH THAN INC INC WND CARE PART TX PLAN E-STIM G0283 [place] [facility] 1/> AREAS 3 [facility] OTH THAN INC INC WND CARE PART TX PLAN APPLICATI 50259 [place] [facility] ON 3 [facility] MODALITY INC INC 1/> AREAS HOT/COLD PACKS THERAPEUT 42106 [place] [place] 1/> 3 [facility] AREAS INC INC EACH 15 MIN EXERCISES CONTINUOU E0601 AYLINERNESTO VIERA S 3 HOME HOME POSITIVE MEDICAL MEDICAL AIRWAY EQUIPME EQUIPME PRESSURE DEVICE E-STIM G0283 [place] [facility] 1/> AREAS 3 [facility] OTH THAN INC INC WND CARE PART TX PLAN THERAPEUT 70749 [place] [facility] [place] PX 1/> 3 [facility] AREAS INC INC EACH 15 MIN EXERCISES SPUTUM 77739 [place] [facility] OBTAINING 3 [facility] SPEC INC INC AEROSOL INDUCED TX SPX CUL BACT 68218 [place] [facility] XCPT 3 [facility] URINE INC INC BLOOD/STO OL AEROBIC ISOL SMR PRIM 23032 [place] [facility] SRC 3 [facility] GRAM/GIEM INC INC SA STAIN BCT FUNGI/LEONIDES L THERAPEUT 42189 [place] [place] 1/> 3 [facility] AREAS INC INC EACH 15 MIN EXERCISES E-STIM G0283 [place] [facility] 1/> AREAS 3 [facility] OTH THAN INC INC WND CARE PART TX PLAN SBSQ 15997 [facility] 3 MEDICAL PRE CARE/DAY SERV 25 FOUNDATIO MINUTES RADIOLOGI 75165 [place] K[place] C EXAM 3 MEDICAL CHEST 2 SERV VIEWS FOUNDATIO FRONTAL&[place] [address] [place] ARINA MCCOY HEAD/BRAI 3 MEDICAL N W/O SERV CONTRAST FOUNDATIO MATERIAL RADIOLOGI 06753 [place] C EXAM 3 MEDICAL CHEST 2 SERV VIEWS FOUNDATIO FRONTAL&L ATERAL SBSQ 75601 [facility] 3 MEDICAL PRE CARE/DAY [place] [address] [place] [facility] INFUSION 3 [facility] THERAPY/P INC INC ROPHYLAXI S /DX 1ST TO 1 HR AMB A0427 [facility] SERVICE 3 AMBULANCE AMBULANCE ALS SERVICE SERVICE EMERGENCY TRANSPORT LEVEL 1 GROUND A0425 [facility] MILEAGE 3 AMBULANCE AMBULANCE [place] [address] [place] [facility] INFUSION 3 [facility] THERAPY INC INC PROPHYLAX IS/[place] [address] [facility] INFUSION 3 [facility] THER INC INC PROPH ADDL SEQUENTIA L TO 1 HR RADIOLOGI 89893 [place] AYRETA 3 MEDICAL EXAMINATI SERV ON CHEST FOUNDATIO SINGLE VIEW FRONTAL CUL BACT 63699 [place] [facility] XCPT 3 [facility] URINE INC INC BLOOD/STO OL AEROBIC ISOL SUSCEPTIB 50600 [place] [facility] LTY STDY 3 [facility] ANTIMICRB INC INC IAL MICRO/AGA R DILUTJ IAADI 76933 [place] [facility] INFLUENZA 3 [facility] B VIRUS INC INC IAADI 02228 [place] [facility] INFFLUENZ 3 [facility] A A VIRUS INC INC SMR PRIM 89279 [place] SRC 3 [facility] GRAM/GIEM INC INC SA STAIN BCT FUNGI/LEONIDES L INITIAL 81487 [facility] 3 MEDICAL PRE CARE/DAY SERV 70 FOUNDATIO MINUTES CUL BACT 63092 [place] [facility] AEROBIC 3 [facility] ADDL INC INC METHS DEFINITIV E EA ISOL ECG 66799 [place] [facility] ROUTINE 3 [facility] ECG INC INC W/LEAST 12 LDS TRCG ONLY W/O I&R CULTURE 08160 [place] [facility] BACTERIAL 3 [facility] BLOOD INC INC AEROBIC W/ID ISOLATES THERAPEUT 78748 [place] [facility] IC PX 1/> 3 [facility] AREAS INC INC EACH 15 MIN EXERCISES PHYSICAL 10466 [place] [facility] THERAPY 3 [facility] EVALUATIO INC INC N CREATINE 39466 [place] [facility] KINASE 3 [facility] TOTAL INC INC RADIOLOGI 70776 [place] [facility] C 3 [facility] EXAMINATI INC INC ON CHEST SINGLE VIEW FRONTAL E-STIM G0283 [place] [facility] 1/> AREAS 3 [facility] OTH THAN INC INC WND CARE PART TX PLAN ECG 56699 [place] ROUTINE 3 [facility] W/LEAST P 12 LDS I&[place] [address] [place] [facility] TROPONIN 3 [facility] QUANTITAT INC INC COURTNEY BLOOD 79693 [place] [facility] COUNT 3 [facility] COMPLETE INC INC AUTO&AUTO DIFRNTL WBC CRITICAL 45124 [place] [facility] CARE 3 [facility] ILL/INJUR INC INC ED PATIENT INIT 30-74 MIN BASIC 55497 [place] [facility] METABOLIC 3 [facility] PANEL INC INC CALCIUM TOTAL CREATINE 17502 [place] [facility] KINASE MB 3 [facility] FRACTION INC INC ONLY BLOOD 13918 [place] [facility] GASES ANY 3 [facility] INC INC COMBINATI ON PH PCO2 PO2 CO2 HCO3 COMPREHEN 57762 [facility] SIVE 3 [facility]INGS PANEL COLLECTIO 32185 [facility] N VENOUS 3 [facility] BLOOD [facility] HOLDINGS VENIPUNCT URE BLOOD 93143 [facility] COUNT 3 [place] COM[facility]TE [facility] HOLDINGS AUTOMATED C-REACTIV 41775 [facility] E PROTEIN 3 [...] AT EQUIPME EQUIPME PRSC FLW RATE GASES 70303 [facility] BLOOD PH 3 Y Y DIRECT [facility] ANSHU XCPT PULSE OXIMITRY CT THORAX 90270 [facility] W/O 3 Y Y CONTRAST [facility] MATERIAL ARTERIAL 02916 [facility] PUNCTURE 3 Y Y [facility] L BLOOD DX PULMONARY 58662 [place] STRESS 3 [place] [address] [place] DIFFUSING 3 MEDICAL CAPACITY SERV FOUNDATIO PLETHYSMO 36439 [place] GRAPHY 3 MEDICAL MEDICAL LUNG SERV SERV VOLUMES FOUNDATIO FOUNDATIO W/WO AIRWAY RESIST SPMTRY 88859 [place] KET W/VC 3 MEDICAL EXPIRATOR SERV Y RACHEL FOUNDATIO W/WO MXML VOL VNTJ CONTINUOU E0601 AYLIN VIERA S 3 HOME HOME POSITIVE MEDICAL MEDICAL AIRWAY EQUIPME EQUIPME [facility] 30419 [place] SEETH[facility] DISCHARGE 3 MEDICAL AJU HAZEL DAY SERV MANAGEMEN FOUNDATIO T 30 MIN/< ECG 05719 [place] [facility] ROUTINE 3 [facility] ECG INC INC W/LEAST 12 LDS TRCG ONLY W/O I&R COMPREHEN 65518 [place] [facility] SIVE 3 [facility] METABOLIC INC INC PANEL PRESSURIZ 51166 [place] ED/NONPRE 3 [facility] SSURIZED INC INC INHALATIO N TREATMENT AMBULANCE A0429 [facility] SERVICE 3 AMBULANCE AMBULANCE BLS SERVICE SERVICE EMERGENCY TRANSPORT RADIOLOGI 21229 [facility] EXAM 3 MEDICAL CHEST 2 SERV VIEWS FOUNDATIO FRONTAL&L ATERAL GROUND A0425 [facility] MILEAGE 3 AMBULANCE AMBULANCE [place] [address] [facility] ANGIOGRAP 3 MEDICAL HY CHEST SERV W/CONTRAS FOUNDATIO T/NONCONT RAST ECG 84433 [place] ORDOEÑZ JR ROUTINE 3 [facility] W/LEAST P 12 LDS I&R ONLY RADIOLOGI 13164 [place] [facility] C 3 [facility] EXAMINATI INC INC ON CHEST SINGLE VIEW FRONTAL THER 65085 [place] [facility] PROPH/DX 3 [facility] NJX IV INC INC PUSH SINGLE/1S T SBST/DRUG CULTURE 89202 [place] [facility] BACTERIAL 3 [facility] BLOOD INC INC AEROBIC W/ID ISOLATES SUSCEPTIB 01498 [place] [facility] LTY STDY 3 [facility] ANTIMICRB INC INC IAL MICRO/AGA R DILUTJ SMR PRIM 49307 [place] SRC 3 [facility] GRAM/GIEM INC INC SA STAIN BCT FUNGI/LEONIDES L CUL BACT 37483 [place] [facility] XCPT 3 [facility] URINE INC INC BLOOD/STO OL AEROBIC ISOL BLOOD 00527 [place] [facility] COUNT 3 [facility] COMPLETE INC INC AUTO&AUTO DIFRNTL WBC CUL BACT 39537 [place] AEROBIC 3 [facility] ADDL INC INC METHS DEFINITIV E EA ISOL ADMN SET A7003 YOUR YOUR SM VOL 3 [facility] PNEUMAT NEBULIZR DISPBL PHRM Q0513 YOUR YOUR DISPENSIN 3 PHARMACY PHARMACY G [employer] INHALATIO N RX; PER 30 DAYS [...] COMPRESSO MEDICAL MEDICAL R EQUIPME EQUIPME RADIOLOGI 69051 [place] [facility] C EXAM 3 [facility] CHEST 2 INC INC VIEWS FRONTAL&L ATERAL CONTINUOU E0601 AYLIN AYLIN S 3 HOME HOME POSITIVE MEDICAL MEDICAL AIRWAY EQUIPME EQUIPME PRESSURE DEVICE CREATINE 08831 [place] [facility] KINASE MB 3 [facility] FRACTION INC INC ONLY COMPREHEN 34697 V[place] [facility] SIVE 3 [facility] METABOLIC INC INC PANEL 3D 36390 [place] [facility] RENDERING 3 [facility] W/INTERP INC INC & POSTPROCE SS SUPERVISI ON CREATINE 12222 [place] [facility] KINASE 3 [place] [address] [place] [facility] HEAD/BRAI 3 [facility] N W/O INC INC CONTRAST MATERIAL RHYTHM 96379 [place] [facility] ECG 1-3 3 [facility] LEADS INC INC TRACING ONLY W/O I&R ECG 14172 [place] ORDOÑEZ JR ROUTINE 3 [facility] W/LEAST P 12 LDS I&[place] [address] [place] [facility] TROPONIN 3 [facility] QUANTITAT INC INC COURTNEY BLOOD 52068 [place] [facility] COUNT 3 [facility] COMPLETE INC INC AUTO&AUTO DIFRNTL WBC ECG 64810 [place] [facility] ROUTINE 3 [facility] ECG INC INC W/LEAST 12 LDS TRCG ONLY W/O I&R NEBULIZER E0570 AYLIN VIEAR WITH 3 HOME HOME COMPRESSO MEDICAL MEDICAL [...] PER SESS TO 2 PER DAY BLOOD 38733 [facility] HE[facility] COUNT 3 [employer] COMPLETE HOLDING HOLDING AUTOMATED COMPREHEN 11136 [facility] SIVE 3 [employer] MET[employer]OLIC [employer] HOLDING PANEL COLLECTIO 04265 [facility] N VENOUS 3 AMERIC AMERIC BLOOD HOLDING HOLDING VENIPUNCT URE C-REACTIV 41759 [facility] HE[facility] E PROTEIN 3 [...] PER SESS TO 2 PER DAY POLYSOM 18453 [place] 6/>YRS 3 MEM HOS[facility] MEM [...] HOME R MEDICAL MEDICAL EQUIPME EQUIPME BRNCDILAT 28606 [place] [facility] RSPSE 3 [facility] SPMTRY INC INC PRE&POST- BRNCDILAT ADMN NEBULIZER E0570 AYLIN VIERA WITH 3 HOME HOME COMPRESSO MEDICAL MEDICAL R EQUIPME EQUIPME O2 CONC 1 E1390 AYLIN VIERA DEL PORT 3 HOME HOME 85%/>02 MEDICAL MEDICAL CONC AT EQUIPME EQUIPME PRSC FLW RATE GAS 15503 [place] DILUT/WAS 3 [facility] HOUT LUNG INC INC VOL W/WO DISTRIB VENT&V PRTBLE E0431 AYLIN VIERA GASEOUS 3 HOME HOME O2 SYS MEDICAL MEDICAL RENT; EQUIPME EQUIPME FLWMTR HUMIDFR&M ASK IRON 25272 [facility] 3 Y Y [facility] COMPREHEN 83551 [facility] 3 Y Y METABOLIC [facility] [address] [facility] Y Y [facility] COLLECTIO 88814 [facility] N VENOUS 3 Y Y BLOOD [facility] VENIPUNCT URE RADIOLOGI 43906 [facility] C EXAM 3 Y Y CHEST 2 [facility] VIEWS FRONTAL&L ATERAL CYANOCOBA 46538 [facility] CLARISSE 3 Y [facility] B-12 RHEUMATOI 27281 [facility] D FACTOR 3 Y Y QUANTITAT [facility] COURTNEY PREALBUMI 15066 [facility] N 3 Y Y [facility] ANTINUCLE 74009 [facility] HEIDI AR 3 Y [facility] [place] FLUORESCE 71215 [facility] NT 3 Y Y NONNFCT [facility] AGT ANTB SCREEN EA ANTIBODY BLOOD 95549 [facility] COUNT 3 Y Y COMPLETE [facility] AUTO&AUTO DIFRNTL WBC STANDARD K0001 AYLIN VIERA [...] AT EQUIPME EQUIPME PRSC FLW RATE POLYSOM 41654 [place] 6/>YRS 3 [facility] SLEEP INC INC W/CPAP 4/> ADDL [facility] 71561 [facility] 3 MEDICAL JAG DAY SERV MANAGEMEN FOUNDATIO T 30 MIN/< SBSQ 88570 [facility] 3 MEDICAL JAG CARE/DAY SERV 25 FOUNDATIO MINUTES RADEX ABD 39935 [place] DISANTIS COMPL 3 MEDICAL SIDDHARTHA AQT ABD SERV W/S/E/D FOUNDATIO VIEWS 1 VIEW CH RADEX ABD 74700 [place] JES[place] JAM COMPL 3 MEDICAL AQT ABD SERV W/S/E/D FOUNDATIO VIEWS 1 [facility]IEW [facility] 70827 [place] SOHEIL[place] ABDOMINAL 3 MEDICAL DEENA REAL SERV TIME FOUNDATIO W/IMAGE LIMITED INITIAL 49240 [facility] 3 Y OF MARION CARE/DAY [...] MEDICAL ADJUSTABL EQUIPME EQUIPME E/FIXED HEIGHT RADIOLOGI 72336 [facility] [place] KOSTELIC C EXAM 3 RADIOLOGY MONTSERRAT CHEST 2 VIEWS FRONTAL&L ATERAL DUP-SCAN 22889 JERRI JERRI XTR VEINS 3 ESPERANZA ESPERANZA COMPLETE BILATERAL STUDY RADIOLOGI 02444 [facility] [place] NOEL C EXAM 3 RADIOLOGY GODFREY CHEST 2 VIEWS FRONTAL&L ATERAL MRI BRAIN 47065 [place] LUKINS BRAIN 3 MEDICAL TIERRA STEM W/O SERV CONTRAST FOUNDATIO MATERIAL SBSQ 03027 [facility] E CARE [facility]ARE/DAY CTR OF 15 THE B MINUTES [facility] [place] [address] [place] INCL 3 MEDICAL OSCAR FLUOR SERV GDNCE DX FOUNDATIO W/CELL WASHG SPX SBSQ 16136 [facility] 3 E CARE CARE/DAY CTR OF 25 THE B MINUTES CLOSED 3324 [facility] BIOPSY OF 3 Y Y [facility] VENOUS 3893 [facility] CATHETERI 3 Y Y [facility] NOT ELSEWHERE CLASSIFIE D ECG 94052 TARAS NEVAREZ CHI ROUTINE 3 MEDICAL ECG SERV W/LEAST FOUNDATIO 12 LDS I&R ONLY ECG 33689 TARAS HU ROUTINE 3 MEDICAL NAN ECG SERV W/LEAST FOUNDATIO 12 LDS I&R ONLY CONTINUOU E0601 AYLIN VIERA S 2 HOME HOME POSITIVE MEDICAL MEDICAL AIRWAY EQUIPME EQUIPME PRESSURE DEVICE THORACOSC 3320 [facility] [place], [facility] LUNG 2 Y Y BIOPSY [facility] HOSPITAL STANDARD K0001 AYLIN VIERA WHEELCHAI 2 HOME HOME R MEDICAL MEDICAL EQUIPME EQUIPME ECG 30748 TARAS NEVAREZ CHI ROUTINE 2 MEDICAL ECG SERV W/LEAST FOUNDATIO 12 LDS I&R ONLY ECG 26920 TARAS ROSENBERG ROUTINE 2 MEDICAL ECG SERV W/LEAST FOUNDATIO 12 LDS I&R ONLY ECG 76086 TARAS NEVAREZ CHI ROUTINE 2 MEDICAL ECG SERV W/LEAST FOUNDATIO 12 LDS I&R ONLY ECG 09428 TARAS HU ROUTINE 2 MEDICAL NAN ECG SERV W/LEAST FOUNDATIO 12 LDS I&R ONLY INSERTION 9604 [facility] 2 Y Y [facility] EAL TUBE CONT 9671 [facility] 2 Y Y OSS HEALTH < 96 CONSECUTI VE HOURS RADIOLOGI 02442 [place] DAWNA C 2 MEDICAL TIERRA EXAMINATI IMAGING ON CHEST ASS SINGLE VIEW FRONTAL RADIOLOGI 39174 [facility] 2 MEDICAL TIERRA EXAMINATI IMAGING ON CHEST ASS SINGLE VIEW FRONTAL ADMN SET A7003 YOUR YOUR SM VOL 2 PHARMACY PHARMACY NONFILTR [employer] PNEUMAT NEBULIZR DISPBL ALBUTEROL J7620 YOUR YOUR TO 2.5 2 PHARMACY PHARMACY [facility] IPRATROPI UM BROM TO 0.5 MG PHARM G0333 YOUR YOUR DISPEN 2 PHARMACY PHARMACY [facility] [employer] [facility] RX; INITIAL 30-DAY SUPPLY ECG 03020 POPPY LOPEZ ROUTINE 2 EMERGENCY VENUS ECG SERVICES W/LEAST 12 LDS I&R ONLY RADIOLOGI 68900 YAZ TONEY C EXAM 2 MEDICAL TIERRA CHEST 2 IMAGING VIEWS ASS FRONTAL&L ATERAL BLOOD 58449 [facility] OCCULT 2 N N PEROXIDAS COMMUNITY COMMUNITY E ACTV HOSPITA HOSPITA QUAL FECES 1-3 SPEC OVA&CHAD 82216 [facility] ITES 2 N N DIRECT COMMUNITY COMMUNITY SMEARS HOSPITA HOSPITA CONCENTRA TION & ID SMR PRIM 07030 [facility] SRC 2 N N GRAM/GIEM COMMUNITY COMMUNITY SA STAIN HOSPITA HOSPITA BCT FUNGI/LEONIDES L SMR PRIM 50086 [facility] SRC CPLX 2 N N SPEC COMMUNITY COMMUNITY STAIN HOSPITA HOSPITA OVA&CHAD ITS BLOOD 71797 CULBERTSO CULBERTSO OCCULT 2 N KALYAN N KALYAN PEROXIDAS E ACTV QUAL FECES 1 DETER COMPREHEN 62983 LAB [facility]I LAB HEIDI SIVE 2 AMERIC AMERIC METABOLIC HOLDING HOLDING PANEL COLLECTIO 00624 LAB HE[facility]I LAB HEIDI N VENOUS 2 AMERIC AMERIC BLOOD HOLDING HOLDING VENIPUNCT URE BLOOD 21843 LAB [facility] LAB HEIDI COUNT 2 AMERIC AMERIC COMPLETE HOLDING HOLDING AUTOMATED C-REACTIV 69007 LAB HE[facility]I LAB HEIDI E PROTEIN 2 AMERIC AMERIC HOLDING HOLDING C-REACTIV 95251 LAB HE[facility]I LAB HEIDI E PROTEIN 1 AMERIC [employer] HOLDING HOLDING BLOOD 97873 LAB HE[facility]I LAB HEIDI COUNT 1 AMERIC AMERIC COMPLETE HOLDING HOLDING AUTOMATED COLLECTIO 26364 LAB HE[facility]I LAB HEIDI N VENOUS 1 AMERIC AMERIC BLOOD HOLDING HOLDING VENIPUNCT URE COMPREHEN 76186 LAB HE[facility] LAB HEIDI SIVE 1 [employer]IC [employer] METABOLIC HOLDING HOLDING PANEL RADEX 04210 [facility] ANKLE 1 Y Y COMPLETE HOSPITAL HOSPITAL MINIMUM 3 VIEWS WALKING L4360 [facility] BOOT 1 PNEUMATC &/ VACUUM PREFAB CUSTM FIT TRANSFERA 87181 [facility] SE 1 [place] [facility] [employer] [facility] ASPARTATE AMINO AST SGOT COLLECTIO 76982 [facility] N VENOUS 1 [place] [facility] [place] INC BLOOD VENIPUNCT URE LIPID 43984 [facility] PANEL 1 [employer] [place] INC CAST Q4038 TARAS MARTINEZ SUPPLIES 1 MEDICAL KAMALA SHORT LEG SERV CAST FOUNDATIO ADULT FIBERGLAS S APPLICATI 57836 [place] TARAS ON SHORT 1 MEDICAL MEDICAL LEG CAST SERV SERV WALKING/A FOUNDATIO FOUNDATIO MBULATORY RADIOLOGI 88585 [facility] 1 Y Y [facility] ON FOOT 2 VIEWS CAST Q4038 TARAS MARTINEZ SUPPLIES 1 MEDICAL KMAALA SHORT LEG SERV CAST FOUNDATIO ADULT FIBERGLAS S APPLICATI 76084 [place] T[place] ON SHORT 1 MEDICAL MEDICAL LEG CAST SERV SERV BELOW FOUNDATIO FOUNDATIO KNEE-TOE [facility] G0378 [facility] OBSERVATI 0 Y Y ON HOSPITAL HOSPITAL SERVICE PER HOUR PHYSICAL 13461 [facility] 0 Y Y [facility] N [address] [place] GUIDANCE 0 MEDICAL JUS NEEDLE SERV PLACEMENT FOUNDATIO IMG S&I ARTHRODES 23237 [facility] ANESTHESI 62562 TARAS GERALD A ON BONY 0 MEDICAL JUS PELVIS SERV FOUNDATIO INJECTION 35891 [place] W[place] 0 MEDICAL JUS ANESTHETI SERV C AGENT FOUNDATIO SCIATIC NRV SINGLE INJECTION 55583 [facility] JUS ANESTHETI SERV C AGENT FOUNDATIO FEMORAL NERVE SINGLE BONE 01877 [facility] GRAFT ANY 0 Y Y DONOR HOSPITAL HOSPITAL AREA MAJOR/LAR GE FLUOROSCO 05445 [facility] PY SPX >1 0 Y Y HOUR H[facility]PITAL HOSPITAL PHYS/QHP TIME CUL BACT 44457 LAB HE[facility]I LAB HEIDI XCPT 0 AMERIC AMERIC URINE HOLDING HOLDING BLOOD/STO OL AEROBIC ISOL CULTURE 08329 LAB [facility] LAB HEIDI BACTERIAL 0 AMERIC AMERIC ANY HOLDING HOLDING SOURCE ANAEROBIC ISO&ID SMR PRIM 31046 LAB HE[facility]I LAB EHIDI SRC 0 AMERIC AMERIC GRAM/GIEM HOLDING HOLDING SA STAIN BCT FUNGI/LEONIDES L CREATINE 02427 [place] KINASE 0 [facility] TOTAL INC INC THER 93247 [place] PROPH/DX 0 [facility] NJX IV INC INC PUSH SINGLE/1S T SBST/DRUG BLOOD 14654 [place] COUNT 0 [facility] COMPLETE INC INC AUTO&[place] [address] [place] TROPONIN 0 [facility] QUANTITAT INC INC COURTNEY ECG 85924 POPPY MORRISSEY ROUTINE 0 EMERGENCY III TRISTA ECG SERVICES W/LEAST 12 LDS I&R ONLY BASIC 21524 [place] METABOLIC 0 [facility] PANEL INC INC CALCIUM TOTAL CREATINE 16151 [place] STEVEN[place] KINASE MB 0 [facility] FRACTION INC INC ONLY RADIOLOGI 76993 [facility] MEDICAL TIERRA EXAMINATI IMAGING ON CHEST ASS SINGLE VIEW FRONTAL PRESSURIZ 94321 [place] ED/NONPRE 0 [facility] SSURIZED INC INC INHALATIO N TREATMENT ECG 43873 [place] ROUTINE 0 [facility] ECG INC INC W/LEAST 12 LDS TRCG ONLY W/O I&R DUP-SCAN 77527 [place] STEVENSON XTR VEINS 0 [facility] INC INC UNILATERA L/LIMITED STUDY 3D 60243 [place]IASULEMAN COLEMAN RENDERING 0 [facility] INC INC W/INTERP& POSTPROC DIFF WORK STATION CT LOWER 27264 [place] CO[place] EXTREMITY 0 [facility] W/O INC INC CONTRAST MATERIAL INJECTION J1040 MONICA MOSLEYO 9 N, GEREMIAS DOUGHERTYPRE DNISOLONE ACETATE 80 MG CV STRS 36720 MONICA MOSLEYO TST 9 N, GEREMIAS DOUGHERTY&/OR RX CONT ECG W/O I&R CV STRS 05892 [facility] TST 9 N N XERS&/OR COMMUNITY COMMUNITY RX CONT HOSPITAL HOSPITAL ECG TRCG ONLY CV STRS 65534 MONICA MOSLEYO TST 9 N, GEREMIAS N, GEREMIAS XERS&/OR RX CONT ECG I&R ONLY TECHNETIU A9500 [facility] TC-99M 9 N N SESTAMIBI [facility] DX PER HOSPITAL HOSPITAL STUDY DOSE MYOCRD 66692 [facility] N N [facility] QUAL/RENEE STD MYOCRD 06152 [facility] IMG 9 N N TOMOG [facility] SPECT [facility] STD BLOOD 60602 MONICA ANDERSON OCCULT 9 N, GEREMIAS DOUGHERTY PEROXIDAS E ACTV QUAL FECES 1 DETER MYOCRD 54409 [facility] STD 9 N N EJEC FXJ [facility] COLLECTIO 90666 [facility] N VENOUS 9 [facility] BLOOD VENIPUNCT URE IRON 62356 [facility] BINDING 9 [facility] [place] [address] [facility] IRON 9 [facility] COLLECTIO 78488 [facility] N VENOUS 9 [facility] BLOOD VENIPUNCT URE BLOOD 30474 [facility] COUNT 9 [facility] COMPLETE AUTO&AUTO DIFRNTL WBC INFLUENZA G9141 MONICA ANDERSON A H1N1 9 N, GEREMIAS DOUGHERTY IMMUNIZAT ION ADMINISTR ATION PWR E2365 ALLIED ALLIED WHLCHAIR 9 HOME HOME ACSS U-1 MEDICAL, MEDICAL, SEALED INC. INC. LEAD ACID BATTRY EA REPR/SRVC K0739 ALLIED ALLIED DME NOT 9 HOME HOME O2 RQR MEDICAL, MEDICAL, TECH INC. INC. CMPNT PER 15 MINS CUL BACT 31289 LAB HE[facility]I LAB HEIDI XCPT 9 AMERIC AMERIC URINE HOLDING HOLDING BLOOD/STO OL AEROBIC ISOL SUSCEPTIB 68124 LAB [facility] LAB HEIDI LTY STDY 9 AMERIC AMERIC ANTIMICRB HOLDING HOLDING IAL MICRO/AGA R DILUTJ SMR PRIM 39883 LAB [facility] HEIDI SRC 9 AMERIC AMERIC GRAM/GIEM HOLDING HOLDING SA STAIN BCT FUNGI/LEONIDES L CULTURE 89737 LAB [facility]I LAB HEIDI BACTERIAL 9 AMERIC AMERIC ANY HOLDING HOLDING SOURCE ANAEROBIC ISO&ID COLLECTIO 38599 [facility] N VENOUS 9 [facility] BLOOD VENIPUNCT URE LIPID 22372 [facility] PANEL 9 [facility] INC COMPREHEN 23120 [facility] SIVE 9 [facility] [place] [address] [facility] PROSTATE 9 [facility] SPECIFIC ANTIGEN TOTAL INJECTION J3010 [facility] FENTANYL 9 Y Y CITRATE [facility] 0.1 MG L[place]EL I 85[address] [facility] SURG 9 Y Y PATHOLOGY [facility] GROSS EXAMINATI ON ONLY INJECTION J2270 [facility] MORPHINE 9 Y Y SULFATE [facility] UP TO 10 MG INJECTION J0690 [facility] 9 Y Y CEFAZOLIN [facility] SODIUM 500 MG INJECTION J2175 [facility] 9 Y Y MEPERIDIN [facility] E HCL PER 100 MG RINGERS J7120 [facility] LACTATE 9 Y Y INFUSION [facility] UP TO 1000 CC FLUOROSCO 49917 [facility] PY SPX >1 9 Y Y [facility] PHYS/QHP TIME CUL BACT 32685 [facility] XCPT 9 Y Y URINE [facility] BLOOD/STO OL AEROBIC ISOL REMOVAL 86268 [facility] IMPLANT 9 Y Y DEEP HOSPITAL HOSPITAL SMR PRIM 86317 [facility] SRC 9 Y Y GRAM/GIEM HOSPITAL [facility] SA STAIN BCT FUNGI/LEONIDES L BLOOD 62548 [facility] COUNT 9 Y Y COMPLETE [facility] AUTOMATED ECG 20650 TARAS CHASE, ROUTINE 9 MEDICAL MARIXA G ECG SERV W/LEAST FOUNDATIO 12 LDS I&R ONLY BASIC 92694 [facility] METABOLIC 9 Y Y PANEL [facility] CALCIUM TOTAL COLLECTIO 12528 [facility] N VENOUS 9 Y Y BLOOD [facility] VENIPUNCT URE RADEX 69821 [facility] FOOT 9 Y Y COMPLETE [facility] MINIMUM 3 VIEWS ECG 01976 [facility] ROUTINE 9 Y Y ECG [facility] W/LEAST 12 LDS TRCG ONLY W/O I&R INJ J0702 SASKIA SCHAEFFER BETAMETHA 9 [facility] II, NESHA SONE ORTHOPAED A ACETATE & IC SURGEONS PHOSPHATE PSC 3 MG COLLECTIO 27874 [facility] N VENOUS 9 Y Y BLOOD [facility] VENIPUNCT URE ARTHROCEN 77248 SASKIA SCHAEFFER TESIS 9 H II, NESHA ASPIR&/IN ORTHOPAED A J MAJOR IC JT/BURSA SURGEONS W/O US PSC CUL BACT 74744 [facility] XCPT 9 Y Y URINE [facility] BLOOD/STO OL AEROBIC ISOL SMR PRIM 34859 [facility] SRC 9 Y Y GRAM/GIEM [facility] SA STAIN BCT FUNGI/LEONIDES L CELL 82692 [facility] COUNT 9 Y Y [facility] BODY [facility] FLUIDS W/DIFFERE NTIAL COUNT REP/NONRO E1340 ALLIED ALLIED UTINE 9 HOME HOME SRVC DME MEDICAL, MEDICAL, RQR SKL INC. INC. TECH LABR-15 MIN PWR E2365 ALLIED ALLIED WHLCHAIR 9 HOME HOME ACSS U-1 MEDICAL, MEDICAL, SEALED INC. INC. LEAD ACID BATTRY EA SBSQ 71001 [facility] 8 EMERGENCY N, CARE/DAY SERVICES TADARRO 25 MINUTES ASSOCIATE S INITIAL 51826 [facility] INPATIENT 8 EMERGENCY N, CONSULT SERVICES TADARRO NEW/ESTAB PT 110 ASSOCIATE MIN S ANESTH 59686 COMMONKRANTHI CAUSEY 8 [facility] REEMA Harvey ANESTHESI ARTHROSCO A PSC PIC PROC KNEE JOINT LEVEL III 40302 [place] ANN, SURG 8 MEDICAL TIM E PATHOLOGY SERV FOUNDATIO GROSS&VENUS ROSCOPIC EXAM ANES 57858 [place] HIRO, LOWER 8 ANESTHESI JENNIFER Vieira INTESTINE A GROUP PSC ENDOSCOPY DISTAL DUODENUM COLONOSCO 29806 [facility], PY FLX DX 8 [place] RICHY Bird W/COLLJ GASTROENT SPEC WHEN PFRMD CELL 09114 [facility] COUNT 8 Y Y MISC BODY [facility] FLUIDS W/DIFFERE NTIAL COUNT SMR PRIM 79445 [facility] SRC 8 Y Y GRAM/GIEM HOSPITAL HOSPITAL SA STAIN BCT FUNGI/LEONIDES L CUL BACT 24349 [facility] XCPT 8 Y Y URINE [facility] BLOOD/STO OL AEROBIC ISOL ADMN SET A7003 [...] NONFILTR PHARMACY PHARMACY PNEUMAT NEBULIZR DISPBL DUP-SCAN 77023 [facility] LXTR 8 N N ART/ARTL [facility] COMPL BI STUDY PHRM Q0513 PULMO [...] NONFILTR PHARMACY PHARMACY PNEUMAT NEBULIZR DISPBL RADIOLOGI 66987 MAKSIM MAKSIM C 8 II, NESHA II, NESHA EXAMINATI A A ON KNEE 1/2 VIEWS RADIOLOGI 05383 MAKSIM MAKSIM C EXAM 8 II, NESHA II, NESHA KNEE A A COMPLETE 4/MORE VIEWS PHR Q0513 PULMO PULMO DISPENSIN 8 DOSE DOSE G FEE PHARMACY PHARMACY INHALATIO N RX; PER 30 DAYS ALBUTEROL J7620 PULMO PULMO TO 2.5 8 DOSE DOSE MG & PHARMACY PHARMACY IPRATROPI UM BROM TO 0.5 MG Encounters Encounter Start End Date Code Location Performer Type Date [facility] [place] [facility] [place] [facility] 92127 TARAS SALAZAR DEPT 3 3 MEDICAL JORGE VISIT SERV HIGH FOUNDATIO SEVERITY& THREAT [facility] UNIVERSIT - 3 3 Y [facility] [place] - 3 3 [facility] OFFICE 66179 ARTHRITIS ALEBRTO [facility] 3 3 CENTER T [facility]ISIT OF 25 [facility] [place] [facility] 3 [facility] 26339 POPPY SANTA DEPT 3 3 EMERGENCY VISIT SERVICES HIGH SEVERITY& THREAT [facility] [place] - 3 3 [facility] OFFICE 90476 A Candice LAZCANO OUTPATIEN 3 3 FILEMON SHAH T VISIT [facility] 15 MINUTES EMERGENCY 32616 POPPY SANTA DEPT 3 3 EMERGENCY VISIT SERVICES HIGH SEVERITY& THREAT [facility] [place] - 3 3 [facility] OUTPATIEN [facility] EMERGENCY 46293 [place] 3 3 [facility] T VISIT HIGH/URGE NT SEVERITY OFFICE 62107 ARTHRITIS ALBERTO RIT OUTPATIEN 3 3 CENTER T VISIT OF 25 [facility] OFFICE 17374 Avtar LAZCANO OUTPATIEN 3 3 FILEMON SHAH T VISIT [facility] 15 [facility] [place] - 3 3 [facility] OFFICE 81904 ARTHRITIS ALBERTO RIT OUTPATIEN 3 3 CENTER T VISIT OF 10 [facility] [place] - 3 3 [facility] [place] [facility] 3 3 [facility] T OFFICE 11544 ARTHRITIS ALBERTO RIT OUTPATIEN 3 3 CENTER T VISIT OF 25 [facility] [place] - 3 3 [facility] - 3 3 Y [facility] T OFFICE 98788 TARAS THOMPSON OUTPATIEN 3 3 MEDICAL JAM T VISIT SERV 40 [facility] [place] - 3 3 [facility] OUTPATIEN [facility] EMERGENCY 06185 TARAS LANTIGUA DEPT 3 3 MEDICAL FOREIGN EXCHANGE STUDENT COORDINATOR VISIT SERV HIGH FOUNDATIO SEVERITY& THREAT [facility] UNIVERSIT - 3 3 Y INPATIENT HOSPITAL OFFICE 85595 TARAS GATES OUTPATIEN 3 3 MEDICAL [place] T VISIT SERV ANG 25 [facility] UNIVERSIT - 2 3 Y INPATIENT HOSPITAL EMERGENCY 63928 POPPY LOPEZ DEPT 2 2 EMERGENCY VENUS VISIT SERVICES HIGH SEVERITY& THREAT [facility] EMERGENCY 38440 POPPY SANTA DEPT 2 2 EMERGENCY VISIT SERVICES HIGH SEVERITY& THREAT [facility] [place] [address] 2 N [facility] HOS[facility] OFFICE 19172 CULBERTSO CULBERTSO OUTPATIEN 2 2 N KALYAN N KALYAN T VISIT 15 MINUTES OFFICE 70718 CULBERTSO CULBERTSO OUTPATIEN 1 1 N KALYAN N KALYAN T VISIT 15 [facility] UN[facility]ERSIT - 1 1 Y [facility] Y [facility] 0 0 Y [facility] OFFICE 65639 CULBERTSO CULBERTSO OUTPATIEN 0 0 N KALYAN N KALYAN T VISIT 15 MINUTES OFFICE 95632 TARAS MARTINEZ OUTPATIEN 0 0 MEDICAL KAMALA T VISIT SERV 15 FOUNDATIO [facility] EMERGENCY 37607 [place] 0 0 [facility] DEPARTMEN INC T VISIT MODERATE SEVERITY EMERGENCY 05894 POPPY MORRISSEY DEPT 0 0 EMERGENCY III TRISTA VISIT SERVICES HIGH SEVERITY& THREAT [facility] [place] - 0 0 [facility] OUTPATIEN [facility] T OFFICE 73019 TARAS MARTINEZ OUTPATIEN 0 0 MEDICAL KAMALA T VISIT SERV 15 [facility] [place] - 0 0 [facility] OUTPATIEN INC T EMERGENCY 37057 [place] 0 0 [facility] DEPARTMEN INC T VISIT LOW/MODER SEVERITY OFFICE 35243 CULBERTSO CULBERTSO OUTPATIEN 9 9 N, GEREMIAS DOUGHERTY VISIT 15 MINUTES [facility] 02420 CULBERTSO CULBERTSO OUTPATIEN 9 9 N, GEREMIAS DOUGHERTY VISIT 15 MINUTES OFFICE 63761 CULBERTSO CULBERTSO OUTPATIEN 9 9 N, GEREMIAS DOUGHERTY VISIT 25 MINUTES OFFICE 08641 CULBERTSO CULBERTSO OUTPATIEN 9 9 NGEREMIAS ROBERT T VISIT 15 MINUTES HOSPITAL UN[facility]ERSIT - 9 9 Y [facility] T OFFICE 54797 KAM ENCARNACION 9 9 MEDICAL TONO Marley ION SERV NEW/ESTAB FOUNDATIO PATIENT 40 MIN [facility]ERSIT - 9 9 Y [facility] T OFFICE 68466 [facility] 9 9 [facility] NESHA CLEMONS T VISIT ORTHOPAED A 15 IC MINUTES SURGEONS [facility] - 9 9 Y [facility] - 8 8 Y [facility] T OFFICE 83642 CULBERTSO [facility]UL[facility]ERTSO [facility] 8 8 NGEREMIAS ROBERT T VISIT 15 MINUTES [facility] - 8 8 N [facility] 29549 MAKSIM [facility] 8 8 IINESHA II, GLEN T VISIT A A 15 MINUTES
--- OUTSIDE RECORDS SUMMARY | 2016-09-28 10:31 | External Medical Summary Rpt ---
Demographics Preferred Language Italian Marital Status Unknown Yazdanism Affiliation Unknown Race Unknown Ethnic Group Unknown Author Author , Organization [employer] Address Unknown Phone Unavailable Purpose Continuity of Care Document - through 2016 Immunization No patient found.
--- OUTSIDE RECORDS SUMMARY | 2016-09-28 10:31 | External Medical Summary Rpt ---
Demographics Preferred Language Faroese Marital Status Unknown Rastafarian Affiliation Unknown Race Unknown Ethnic Group Unknown Author Author , Organization [employer] Address Unknown Phone Unavailable Purpose Continuity of Care Document - through 2016 Immunization No patient found.
[2016-09-28 10:33] LABS: NEUTROPHILS 77 % (42-76)
[2016-09-28 10:34] LABS: CORRECTED WBC 18.2 K/mm3
--- NOTE | 2016-09-28 10:35 | RADIOLOGY REPORT PS360 ---
CHEST-PORTABLE HISTORY: Shortness of air, pneumonia, follow-up SOA ORDERING PHYSICIAN: Jin Fernandez MD PATIENT AGE: 60 years COMPARISON: 09/23/2016 FINDINGS: Cardiomegaly with pulmonary venous congestion consistent with CHF which has shown improvement compared to the previous exam. Diffuse pulmonary fibrotic changes also noted with blunting of the left CP angle. In addition there is increasing density in the right upper lobe and in the left upper lobe suspicious for superimposed pneumonia or volume loss. IMPRESSION: 1. CHF. 2. Diffuse pulmonary fibrosis. 3. Superimposed pneumonia and/or atelectatic change in the right upper lobe and left upper lobe
[2016-09-28 10:44] LABS: BUN 16 mg/dL (7-18)
[2016-09-28 10:45] LABS: GFR (ESTIMATED) 69 ML/MIN (>60)
--- NOTE | 2016-09-28 13:08 | RADIOLOGY REPORT PS360 ---
CTA-CHEST HISTORY: SOB, ELEVATED D DIMER ORDERING PHYSICIAN: Jin Fernandez MD PATIENT AGE: 60 years TECHNIQUE: Helical acquisition obtained following the bolus administration of 60 mL of Isovue 370 followed by a saline bolus. Axial, sagittal, and coronal reformatted images are generated and reviewed. COMPARISON: 06/22/2016 FINDINGS: No evidence of pulmonary embolus, aortic aneurysm, or aortic dissection. There are scattered small lymph nodes in the mediastinum and berhane the largest in the subcarinal region measuring up to 3.4 x 1.8 cm. Emphysematous changes are present with diffuse pulmonary fibrosis scattered throughout both lungs. This is most severe in the right apex. There has been increased opacification of the right upper lobe compared to the previous exam which may be due to superimposed pneumonia upon the chronic fibrotic changes. Scattered nodular opacities have developed in both right and left lung superimposed upon the chronic interstitial fibrotic changes and may be related to bilateral pneumonia. Metastatic disease would be included in the differential diagnosis. This is felt to be less likely however. Upper abdominal images show minimal dilatation of the mid abdominal aorta at 2.9 cm. This is incompletely imaged. No effusions are evident. There is some mild pleural calcification in the right lung base anteriorly and in the right lung base posterior laterally IMPRESSION: 1. Diffuse pulmonary fibrotic changes are once again noted. Honeycombing is present in the right upper lobe and in the peripheral lower lung zones 2. There is been interval development of numerous parenchymal opacities in both lungs somewhat more centrally located and may be due to superimposed pneumonia. Cannot exclude the possibility of neoplasm such as metastasis. Opinion follow-up recommended. Opacification is worse in the right upper lobe which may also be due to superimposed pneumonia upon the chronic pulmonary fibrosis. 3. No evidence of pulmonary embolus
--- NOTE | 2016-09-28 14:32 | RADIOLOGY REPORT PS360 ---
CT ABD PELVIS W/O CONTRAST CLINICAL INDICATION: LLQ ABD PAIN ORDERING PHYSICIAN: Jin Fernandez MD PATIENT AGE: 60 years COMPARISON: 12/02/2014 TECHNIQUE: Axial images obtained with sagittal and coronal reformats. PROCEDURE: Oral Contrast: None IV Contrast: None . FINDINGS: The liver, spleen, adrenal glands, and pancreas are unremarkable. No radio opaque gallstones are evident. There is slight increased density along the posterior aspect of the gallbladder could be related to some vicarious excretion of contrast.. There is a small ventral abdominal wall hernia 6 cm above the level the umbilicus containing a small amount fat. There is mild dilatation of the infrarenal abdominal aorta measuring up to 2.8 cm maximum AP and transverse dimension. No evidence of retroperitoneal hemorrhage. No hydronephrosis or obstructing ureteral calculi. No evidence of appendicitis or diverticulitis. No intestinal obstruction or free air. No acute bony anomalies. IMPRESSION: 1. No acute intra-abdominal or pelvic pathology. 2. 2.8 cm infrarenal abdominal aortic aneurysm. 3. Small ventral abdominal wall hernia containing fat
--- OUTSIDE RECORDS SUMMARY | 2016-09-28 15:17 | External Medical Summary Rpt ---
Author Author , Organization [employer] Address Unknown Phone Unavailable Care Team Providers Care Sew On Operator Name Role Phone A Candice COLBERT MD PSC, A Unavailable Unavailable Candice COLBERT MD PSC MARTIN MCKINNEY Unavailable Unavailable REEMA ELDER, Unavailable Unavailable REEMA BOOTH [facility] Unavailable [facility] Un[facility] Unavailable [place] [place] AYOOB AND, AYOOB AND Unavailable Unavailable BENSADOUN NUVIA, Unavailable Unavailable BENSADOUN NUVIA BESSON KAMALA, BESSON Unavailable Unavailable KAMALA SOHEILA DEENA, Unavailable Unavailable SOHEILA DEENA [facility] Unavailable Unavailable SERVICE, [facility] Unavailable Unavailable SERVICE, [facility] CAMILLE KET, CAMILLE KET Unavailable Unavailable GRZEGORZ LACQUER SIZER, GRZEGORZ Unavailable Unavailable LACQUER SIZER TITI JAG, TITI Unavailable Unavailable FAUSTINO MCDOWELL, [...] NAN JESSICA VENUS, JESSICA Unavailable Unavailable [facility] Unavailable Unavailable HOSPITA, [facility] Unavailable Unavailable [facility]PITAL, [facility], [facility] Unavailable Unavailable [facility] Unavailable Unavailable INC, [facility] Unavailable Unavailable HOSPITAL P, [facility] P DUBOIS KAMALA, DUBOIS KAMALA Unavailable Unavailable RENA, MARIXA G, RENA, Unavailable Unavailable MARIXA G [facility] Un[facility] HARLEY OSCAR, Unavailable Unavailable [...] HOLDING, [facility] Unavailable Unavailable HOLDINGS, [facility] Unavailable Unavailable [facility]INGS, [facility], Unavailable Unavailable [facility] JUAN KAMALA, Unavailable Unavailable JUAN KAMALA TONO MARTINEZ, Unavailable Unavailable TONO AMRTINEZ MARION, HAYWOOD Unavailable Unavailable MARION JESICA JAM, JESICA JAM Unavailable Unavailable LUKINS TIERRA, LUKINS Unavailable Unavailable TIERRA [facility] Unavailable Unavailable SERVICES, [facility] MAKSIM II, NESHA A, Unavailable Unavailable MAKSIM II, NESHA A THOMPSON JAM, Unavailable Unavailable THOMPSON JAM TOSHIA WESTON, Unavailable Unavailable [facility] [...] Unavailable Unavailable TIM JUAREZ, Unavailable Unavailable SADIE ORELLANA TALJUANCHO Unavailable Unavailable [facility], Unavailable Unavailable [facility] Unavailable Unavailable [facility] INTER GERALD MINA, Unavailable Unavailable [...] OBSTRUCTION MEDICAL NEC EQUIPME 515 POSTINFLAMM 03-19-2013 [place] [facility] PULMONARY F[facility]AT[facility] FIBROSIS 7245 UNSPECIFIED 03-19-2013 [facility] 91466 OTHER 03-19-2013 [facility] [place] [address] OBSTRUCTIVE 03-10-2013 [facility] MEDICAL EQUIPME 27339 OTHER 03-07-2013 [place] [facility] LUNG NOT INC ELSEWHERE CLASSIFIED 7242 LUMBAGO 03-06-2013 [facility] INC V571 OTHER 03-06-2013 [facility] THERAPY INC 39891 OTHER 03-01-2013 [place] [facility] CONDITIONS [place] OF BRAIN FOUNDATIO 7140 RHEUMATOID 03-01-2013 [place] [facility] ARTHRITIS SERV [facility] 7840 HEADACHE 03-01-2013 [facility] 87725 DIARRHEA 03-01-2013 [facility] 7930 NONSPECIFIC 03-01-2013 [place] [facility] ABN FNDNG SERV RAD & OTH FOUNDATIO EXM SKULL & HEAD E8889 UNSPECIFIED 03-01-2013 [place] [facility] FALL [facility] 17214 OTHER 02-28-2013 [place] [facility] CHRONIC [facility] PAIN FOUNDAT[facility] 4019 UNSPECIFIED 02-28-2013 [place] [facility] ESSENTIAL SERV HYPERTENSIO FOUNDATIO N 27749 FEVER 02-28-2013 [place] [facility] UNSPECIFIED SERV FOUND[facility] 23742 OTHER 02-28-2013 [place] [facility] NONSPECIFIC SERV ABNORMAL FOUNDAT[facility] FINDING OF LUNG FIELD 412 OLD 02-27-2013 [facility] INFARCTION 42756 CORONARY 02-27-2013 [facility] [place] CORONARY ARTERY 4829 UNSPECIFIED 02-27-2013 [facility] BACTERIAL AMBULANCE PNEUMONIA SERVICE 5184 UNSPECIFIED 02-27-2013 [facility] ACUTE [facility] EDEMA OF FOUNDATIO LUNG 5849 ACUTE 02-27-2013 [facility] FAILURE UNSPECIFIED 61680 RHEUMATOID 02-27-2013 [facility] V4361 SHOULDER 02-27-2013 [facility] REPLACEMENT FOUNDATIO BY OTHER MEANS V462 DEPENDENCE 02-27-2013 [facility] FOR SUPPLE[facility]A L OXYGEN 54171 OBSTRUCTIVE 02-26-2013 [facility] WITH EXACERBATIO N V5869 LONG-TERM 02-20-2013 [facility] USE OF [place] OTHER MEDICATIONS V6751 F/U EXAM 02-20-2013 [facility] FOLLOW CMPL [place] [facility] W/HIGH-RISK MED NEC 55248 COR 02-12-2013 [facility] UNSPEC TYPE VESSEL [place]/RAUL T 4940 BRONCHIECTA 01-31-2013 [place] [facility] S[facility] WITHOUT SERV ACUTE FOUNDATIO EXACERBATIO N 55571 IDIOPATHIC 01-31-2013 [facility] FIBROSIS SERVICES 7856 ENLARGEMENT 01-31-2013 [facility] OF LYMPH SERV NODES FOUNDATIO 63098 SHORTNESS 01-31-2013 [place] [facility] BREATH SERV FOUNDATIO 99200 OTHER 01-31-2013 [facility] RESPIRATORY AMBULANCE SERVICE COMPLICATIO NS 0529 VARICELLA 01-06-2013 A Candice PINZON MD PSC MENTION OF COMPLICATIO N 7862 COUGH 01-06-2013 A Candice COLBERT MD PSC 4660 ACUTE 11-06-2012 A Candice COLBERT BRONCHITIS PSC V5812 ENCOUNTER 09-25-2012 [facility] ANTINEOPLAS [place] TIC IMMUNOTHERA PY 2859 UNSPECIFIED 08-31-2012 [facility] 4841 PNEUMONIA 08-31-2012 [facility] IN [facility] CYTOMEGALIC FOUNDATIO INCLUSION DISEASE 5168 OTH SPEC 08-31-2012 [facility] ALVEOL&DEONNA SERV ETOALVEOL FOUNDATIO PNEUMONOPAT HIES 55252 NAUSEA WITH 08-02-2012 [place] [facility] VOMIT[place] SERV F[facility] V1209 PERSONAL HX 08-02-2012 [place] [facility] O[facility] INFECTIOUS& FOUNDATIO PARASITIC DISEASE 2724 OTHER AND 07-31-2012 [facility] HYPERLIPIDE ALEKSANDAR 5589 OTH&UNSPEC 07-31-2012 [place] [facility] NONINFECTIO SERV US FOUNDATIO GASTROENTER ITIS&COLITI S 08707 VOMITING 07-31-2012 [facility] INTER 51981 ABDOMINAL 07-31-2012 [facility] PA[place], SERV EPIGASTRIC FOUNDATIO 08457 SYSTEMIC 07-31-2012 [facility] Y RESPONSE SYNDROME UNSPEC V1269 PERSONAL 07-31-2012 [place] [facility] HIST[facility] OTHER FOUNDATIO DISEASES RESPIRATORY SYS 514 PULMONARY 07-03-2012 [facility] [place] CONGESTION RADIOLOGY AND HYPOSTASIS 7295 PAIN IN 07-03-2012 JER[facility] ESPERANZA SOFT TISSUES OF LIMB 7823 EDEMA 07-03-2012 [facility] ESPERANZA 5119 UNSPECIFIED 07-01-2012 [facility] [place] PLEURAL RADIOLOGY EFFUSION 55843 OTHER 06-20-2012 [place] [facility] DISEASES OF SERV NASAL FOUNDATIO CAVITY AND SINUSES 5121 IATROGENIC 06-16-2012 [place] [facility] PNEUMOTHROA SERV X FOUNDATIO 22857 ACUTE AND 06-16-2012 [place] [facility] CHRONIC [facility] RESPIRATORY FOUNDATIO FAILURE 17860 SEPTIC 06-16-2012 [place] [facility] SHOCK SERV F[facility]AT[facility] 0785 CYTOMEGALOV 06-15-2012 [facility] DISEASE THE B 13555 CHEST PAIN 06-15-2012 P[facility] U[facility]PECIFIED CARE CTR OF THE B 7850 UNSPECIFIED 06-11-2012 [place] [facility] SERV TACHYCARDIA FOUNDATIO 4279 UNSPECIFIED 05-17-2012 [facility] CARDIAC SERV DYSRHYTHMIA FOUNDATIO 00136 ACUTE 05-17-2012 [place] [facility] RESPIRATORY SERV FAILURE FOUNDATIO 26747 OTHER 04-24-2012 [facility] BRUNILDA SEPTICEMIA 1124 CANDIDIASIS 04-24-2012 [facility] 5070 PNEUMONITIS 04-24-2012 [facility] INHALATION OF FOOD OR VOMITUS 5100 EMPYEMA 04-24-2012 [facility] [place] FISTULA 5183 PULMONARY 04-22-2012 [facility] MED[facility] A IMAGING ASS 67933 REFLUX 08-03-2011 [facility] ESOPHAGITIS KALYAN 13586 OTHER 08-03-2011 [facility] SYMPTOMS [facility] INVOLVING DIGESTIVE SYSTEM OTHER 490 BRONCHITIS 07-13-2010 [facility] NOT KALYAN SPECIFIED ACUTE OR CHRONIC 06550 ASTHMA, 07-13-2010 [facility] UNSPECIFIED KALYAN , UNSPECIFIED STATUS 97465 PAIN IN 07-08-2010 [facility] ANKLE AND FOOT 84610 DISORDER OF 07-08-2010 [facility] BONE AND SERV CARTILAGE FOUNDATIO UNSPECIFIED V454 ARTHRODESIS 07-08-2010 [place] [facility] STATUS [facility] F[facility] V5489 OTHER 07-08-2010 [facility] AFTERCARE V5409 OTH 06-17-2010 [facility] AFTERCARE SERV INVOLVING FOUNDATIO INTERNAL FIXATION DEVICE V6700 FOLLOW-UP 06-01-2010 [place] [facility] EXAMINATION SERV FOLLOWING FOUNDATIO UNSPEC SURGERY 25819 PRIMARY 05-12-2010 [place] [facility] LOCALIZED SERV OSTEOARTHRO FOUNDATIO SIS ANKLE AND FOOT 18777 PAIN IN 05-12-2010 [place] [facility] JOINT, SERV LOWER LEG FOUNDATIO V0481 NEED 05-12-2010 [facility] C VACCINATION &INOCULATIO N FLU V5849 OTHER 05-12-2010 [place] [facility] SPECIFIED SERV AFTERCARE FOUNDATIO FOLLOWING SURGERY 4659 ACUTE URIS 04-17-2010 [facility] OF K[place]AN UNSPECIFIED SITE 85599 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 [place] [facility] RHEUMATISM SERV ANKLE AND FOUNDATIO FOOT 75944 PAIN IN 04-02-2010 [facility] JOINT, AMERIC UPPER ARM HOLDING 58837 OBST 03-12-2010 [facility] P W/ACUTE BRONCHITIS 65123 PAINFUL 03-12-2010 [facility]GENCY SERVICES 32878 UNSPECIFIED 05-20-2009 GER[facility] BANERJEE ARTHROPATHY SITE UNSPECIFIED 4011 ESSENTIAL 05-09-2009 [facility] N, BENIGN PSC 32456 OTHER CHEST 05-09-2009 [facility] PAIN GEREMIAS V7651 SPECIAL 05-09-2009 [facility] BANERJEE FOR MALIGNANT NEOPLASMS COLON 7808 GENERALIZED 05-05-2009 [facility] BANERJEE HYPERHIDROS IS 5960 BLADDER 03-18-2009 [facility] [place] INC OBSTRUCTION 2720 PURE 03-17-2009 [facility] HYPERCHOLES GEREMIAS TEROLEMIA 14611 ESOPHAGEAL 03-17-2009 [facility] REFLUX GEREMIAS 27482 PRIMARY 03-17-2009 [facility] LOCALIZED GEREMIAS OSTEOARTHRO SIS OTH SPEC SITES 32280 OTH [facility] 11-26-2008 [facility] INT ORTHOPEDIC DEVC IMPL&GFT 36606 OT COMPS 11-26-2008 [place] [facility] DUE OTH SERV INTRL FOUNDATIO ORTHOPED DEVICE IMPL&GFT 7271 BUNION 11-11-2008 [facility] 79802 NONSPECIFIC 11-11-2008 [facility] ELECTROCARD IOGRAM V4589 OTHER 11-11-2008 [facility] L STATUS OTHER 95346 EFFUSION OF 09-19-2008 [facility] LOWER LEG H JOINT ORTHOPAEDIC SURGEONS PSC 93677 VILLONODULA 09-19-2008 [facility] R H SYNOVITIS, ORTHOPAEDIC LOWER LEG SURGEONS PSC 5185 PULMONARY 05-16-2008 [facility]FF[facility]IEN [facility]ERG[facility]Y CY FOLLOW [facility] SURGERY 49004 UNSPECIFIED 05-15-2008 [place] [facility] [place] [address] EXTRINSIC 11-02-2007 [facility] DOSE ASTHMA, PHARMACY UNSPECIFIED 44566 OSTEOARTHRO 07-13-2007 MAKSIM II, SIS UNSPEC NESHA A WHETHER GEN/LOC ANK&FOOT 28922 TENOSYNOVIT 07-13-2007 MAKSIM II, IS OF FOOT NESHA A AND ANKLE Allergies, Adverse Reactions, Alerts Type Allergy to [...] Order Detail nces retati t Range on Lactate Bld-sCnc (09-22-2016 14:15) Lactate 0.9 complet 017 mmol/L ed Bld-sCn 14:15 c NT-proBNP SerPl-mCnc (09-22-2016 14:15) NT-proB 492 0-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 complet Bld 013 K/MM3 8 ed Auto 22:55 RBC # 02-26-2 4.49 4.6-6.2 complet Bld 013 M/mm3 ed Auto 22:55 Hgb 02-26-2 13.3 14.1-18 complet Bld-mCn 013 g/dL .0 ed c 22:55 Hct Fr 40.0 % 42.0-52 complet Bld 013 .0 ed 22:55 MCV RBC 02-26- 89.2 fl 82.2-97 complet 013 .8 ed 22:55 MCH RBC 02-26- 29.5 pg 27-31.2 complet Qn 013 ed Auto 22:55 MEAN 33.1 31.8-35 complet CORPUSC 013 g/dl .4 ed ULAR 22:55 HGB CONC RDW RBC 02-26- 18.0 % 11.5-17 complet Auto 013 .5 ed 22:55 Platele 02-26- 187 142-424 complet t Bld 013 K/mm3 ed Ql 22:55 Manual MEAN 7.9 fl 7.4-10. complet PLATELE 013 4 ed T 22:55 VOLUME Granulo 68.9 % 37.0-80 complet cytes 013 .0 ed Fr Bld 22:55 Auto LYMPH % 02-26-2 22.1 % 10-50 complet 013 ed 22:55 [...] Auto ARTERIAL BLOOD GAS (02-26-2013 22:53) ARTERIA 09-30-2 7.49 7.35-7. complet L PH 013 MMOL/L 45 ed 22:53 ARTERIA 09-30-2 34.3 35.0-45 complet L PCO2 013 MMHG .0 ed 22:53 ARTERIA 09-30-2 85.0 80-100 complet L PO2 013 MMHG ed 22:53 ARTERIA 09-30-2 25.8 22.0-26 complet L HCO3 013 MMOL/L .0 ed 22:53 ARTERIA 09-30-2 26.8 23-27 complet L TCO2 013 MMOL/L ed 22:53 Base -30-2 2.5 -2.4-+2 complet excess 013 MMOL/L .3 ed BldA-sC 22:53 nc ARTERIA -30-2 96 % 90-100 complet L O2 013 ed SAT 22:53 OXYGEN 02-26-2 3LPM complet 013 ed 22:53 Arteria -30-2 ACCEPTA complet l 013 BLE ed patency [...] ML/MIN than ed KENNY) 15:25 60 Sodium 01-31- 139 136-145 complet SerPl-s 013 mmoL/L ed [...] 013 gm/dL ed Ser-mCn 15:25 c Albumin 01-31- 0.5 UNK 1.1-1.8 complet /Glob 013 ed SerPl-m 15:25 Rto Bilirub 0.6 0.2-1.0 complet 013 mg/dL ed SerPl-m 15:25 Cnc AST 04- 22 U/L 15-37 complet SerPl-c 013 ed Cnc 15:25 ALT 04 33 U/L 30-65 complet SerPl-c 013 ed Cnc 15:25 ALP 85 U/L 50-136 complet SerPl-c 013 ed [...] Bld 013 .0 ed 15:25 MCV RBC 09-04-2 88.5 fl 82.2-97 complet 013 .8 ed 15:25 MCH RBC 09-04-2 28.3 pg 27-31.2 complet Qn 013 ed Auto 15:25 MEAN -04-2 32.0 31.8-35 complet CORPUSC 013 g/dl .4 ed ULAR 15:25 HGB CONC RDW RBC -04-2 16.6 % 11.5-17 complet Auto 013 .5 ed 15:25 Platele 09-04-2 251 142-424 complet t Bld 013 K/mm3 [...] 013 K/mm3 ed Bld 15:25 Auto Eosinop 0.5 0.0-0.4 complet hil # 013 K/mm3 ed Bld 15:25 Auto Basophi 0.1 0-0.2 complet ls # 013 K/MM3 [...] with AUTO DIFF (01-05-2013 15:00) WBC # 01-05- 8.5 4.8-10. complet Bld 013 K/MM3 8 [...] ed Fr Bld 15:00 Auto LYMPH % 32.4 % 10-50 complet 013 ed 15:00 Monocyt 5.9 % 1.7-9.3 complet es Fr 013 ed Bld 15:00 Auto Eosinop 3.6 % 0.1-12. complet hil Fr 013 0 ed Bld 15:00 Auto Basophi 08-09-2 0.8 % 0.1-2.0 complet ls Fr 013 ed Bld 15:00 Auto Granulo 4.9 1.3-8.0 complet cytes # 013 K/mm3 ed Bld 15:00 Auto Lymphoc 2 2.8 0.7-4.5 complet ytes Fr 013 K/mm3 ed Bld 15:00 Auto Monocyt 01-05-2 0.5 0.1-1.0 complet es # 013 K/mm3 ed Bld 15:00 Auto Eosinop 2 0.3 0.0-0.4 complet hil # 013 K/mm3 ed Bld 15:00 Auto Basophi 2 0.1 0-0.2 complet ls # 013 K/MM3 ed Bld 15:00 Auto Procedures Procedure DOS Code Location Performer Comment O2 CONC 1 E1390 A[facility]LIN VIERA DEL PORT 4 HOME HOME 85%/>02 MEDICAL MEDICAL CONC AT EQUIPME EQUIPME PRSC FLW RATE PRTBLE E0431 AYLIN ABARCARELL GASEOUS 4 HOME HOME O2 SYS MEDICAL MEDICAL RENT; EQUIPME EQUIPME FLWMTR HUMIDFR&M ASK SPMTRY 81549 [place] W/VC 3 MEDICAL NUVIA EXPIRATOR SERV Y RACHEL FOUNDATIO W/WO MXML VOL VNTJ PULMONARY 89232 [facility] 3 Y Y TESTING [facility] SIMPLE O2 CONC 1 E1390 AYLIN VIERA DEL [place] 3 HOME HOME 85%/>02 MEDICAL MEDICAL CONC AT EQUIPME EQUIPME PRSC FLW RATE NEBULIZER E0570 AYLIN VIERA WITH 3 HOME HOME COMPRESSO MEDICAL MEDICAL R EQUIPME EQUIPME PRTBLE E0431 AYLIN VIERA GASEOUS 3 HOME HOME O2 SYS MEDICAL MEDICAL RENT; EQUIPME EQUIPME FLWMTR HUMIDFR&M ASK THERAPEUT 34606 [place] P[place] 1/> 3 [facility] AREAS INC INC EACH 15 MIN EXERCISES E-STIM G0283 [place] [facility] 1/> AREAS 3 [facility] OTFORMERLY [facility] INC INC WND CARE PART TX PLAN E-STIM G0283 [place] [facility] 1/> AREAS 3 [facility]OS[facility] OTH THAN INC INC WND CARE PART TX PLAN THERAPEUT 94577 [place] [facility] [place] PX 1/> 3 [facility]OS[facility] AREAS INC INC EACH 15 MIN EXERCISES APPLICATI 40024 [place] [facility] ON 3 [facility] MODALITY INC INC 1/> AREAS HOT/COLD PACKS CONTINUOU E0601 AYLIN VIERA S 3 HOME HOME POSITIVE MEDICAL MEDICAL AIRWAY EQUIPME EQUIPME PRESSURE DEVICE THERAPEUT 14100 [place] 1/> 3 [facility] AREAS INC INC EACH 15 MIN EXERCISES E-STIM G0283 [place] STEVEN[place] 1/> AREAS 3 [facility]OS[facility] OTH THAN INC INC WND CARE PART TX PLAN SMR PRIM 41448 [place] [facility] SRC 3 [facility] GRAM/GIEM INC INC SA STAIN BCT FUNGI/LEONIDES L SPUTUM 34232 [place] [facility] OBTAINING 3 [facility] SPEC INC INC AEROSOL INDUCED TX SPX CUL BACT 06762 [place] XCPT 3 [facility] URINE INC INC BLOOD/STO OL AEROBIC ISOL THERAPEUT 71792 [place] [facility] [place] PX 1/> 3 [facility] AREAS INC INC EACH 15 MIN EXERCISES E-STIM G0283 [place] 1/> AREAS 3 [facility]OS[facility] OTH THAN INC INC WND CARE PART TX PLAN SBSQ 48152 [facility] 3 MEDICAL PRE CARE/DAY SERV 25 FOUNDATIO MINUTES RADIOLOGI 68477 [place] DUBO[place] KAMALA C EXAM 3 MEDICAL CHEST 2 SERV VIEWS FOUNDATIO FRONTAL&[place] [address] [place] ARINA MCCOY HEAD/BRAI 3 MEDICAL N W/O SERV CONTRAST FOUNDATIO MATERIAL SBSQ 15126 [facility] 3 MEDICAL PRE CARE/DAY SERV 25 FOUNDATIO MINUTES RADIOLOGI 97127 [place] KAMAL[place] C EXAM 3 MEDICAL CHEST 2 SERV VIEWS FOUNDATIO FRONTAL&L ATERAL SMR PRIM 95665 [place] [facility] SRC 3 [facility] GRAM/GIEM INC INC SA STAIN BCT FUNGI/LEONIDES L SUSCEPTIB 17083 [place] [facility] LTY STDY 3 [facility] ANTIMICRB INC INC IAL MICRO/AGA R DILUTJ AMB A0427 [facility] SERVICE 3 AMBULANCE AMBULANCE ALS SERVICE SERVICE EMERGENCY TRANSPORT LEVEL 1 [place] [address] [place] [facility] INFUSION 3 [facility] THERAPY INC INC PROPHYLAX IS/DX EA HOUR INITIAL 97975 [facility] 3 MEDICAL PRE CARE/DAY SERV 70 FOUNDATIO MINUTES RADIOLOGI 62361 [place] AYOOB AND C 3 MEDICAL EXAMINATI SERV ON CHEST FOUNDATIO [place] FRONTAL CUL BACT 65711 [place] [facility] XCPT 3 [facility]OS[facility] URINE INC INC BLOOD/[place] [address] [place] [facility] INFUSION 3 [facility] THER INC INC PROPH ADDL SEQUENTIA L TO 1 HR IAADI 21890 [place] [facility] INFLUENZA 3 [facility] B VIRUS INC INC IAADI 52002 [place] [facility] INFFLUENZ 3 [facility] A A VIRUS INC INC CUL BACT 85716 [facility] [facility] AEROBIC 3 [facility] ADDL [place] [address] [facility] INFUSION 3 [facility] THERAPY/P INC INC ROPHYLAXI S /DX 1ST TO 1 HR GROUND A0425 [facility] AMBULANCE PER SERVICE SERVICE STATUTE MILE E-STIM G0283 [place] [facility] 1/> AREAS 3 [facility] H[facility]OS[facility] OTH THAN INC INC WND CARE PART TX PLAN BASIC 11500 [place] [facility] METABOLIC 3 [facility] PANEL INC INC CALCIUM TOTAL CREATINE 65038 [place] [facility] KINASE MB 3 [facility] H[facility] FRACTION INC INC ONLY RADIOLOGI 10785 [place] [facility] C 3 [facility] EXAMINATI INC INC ON CHEST [place] FRONTAL PHYSICAL 16088 [facility] THERAPY 3 [facility]OS[facility] EVALUATIO INC INC N THERAPEUT 07685 [place] [facility] [place] PX 1/> 3 [facility] AREAS INC INC EACH 15 MIN EXERCISES BLOOD 98212 [place] [facility] GASES ANY 3 [facility] INC INC COMBINATI ON PH PCO2 PO2 CO2 HCO3 ECG 56072 [place] [facility] ROUTINE 3 [facility] ECG INC INC W/LEAST 12 LDS TRCG ONLY W/O I&R CREATINE 65972 [place] [place] KINASE 3 [facility] TOTAL INC INC CRITICAL 70966 [place] [facility] CARE 3 [facility] ILL/INJUR INC INC ED PATIENT INIT 30-74 MIN ECG 87860 [place] BESCARON ROUTINE 3 [facility] W/LEAST P 12 LDS I&R ONLY CULTURE 04809 [place] BACTERIAL 3 [facility] BLOOD INC INC AEROB[place] [address] [place] TROPONIN 3 [facility] QUANTITAT INC INC COURTNEY BLOOD 32842 [facility] [place] COUNT 3 [facility] COMPLETE INC INC AUTO&AUTO DIFRNTL WBC BLOOD 48119 [facility] COUNT 3 [facility] [employer] [facility] HOLDINGS AUTOMATED C-REACTIV 84350 [facility] E PROTEIN 3 [facility] [place] [facility] COLLECTIO 32116 [facility] N VENOUS 3 [facility] [place] BLOOD [facility]INGS HOLDINGS VENIPUNCT URE COMPREHEN 12099 [facility] SIVE 3 [place] METABOLIC HOLDINGS HOLDINGS PANEL O2 CONC 1 E1390 AYLIN VIERA DEL PORT 3 HOME HOME 85%/>02 MEDICAL MEDICAL CONC AT EQUIPME EQUIPME PRSC FLW RATE PRTBLE E0431 AYLIN VIERA GASEOUS 3 HOME HOME O2 SYS MEDICAL MEDICAL RENT; EQUIPME EQUIPME FLWMTR HUMIDFR&M ASK NEBULIZER E0570 AYLIN VIERA WITH 3 HOME HOME COMPRESSO MEDICAL MEDICAL R EQUIPME EQUIPME SPMTRY 88773 [facility] W/VC 3 [facility] Y RACHEL W/WO MXML VOL VNTJ PLETHYSMO 44542 [facility] GRAPHY 3 [facility] VOLUMES W/WO AIRWAY RESIST CT THORAX 88531 [facility] W/O 3 [facility] MATERIAL GASES 13214 [facility] BLOOD PH 3 Y Y DIRECT [facility] ANSHU XCPT PULSE OXIMITRY PULMONARY 19110 [facility] STRESS 3 Y [place] [address] TARAS OBRIEN KET DIFFUSING 3 MEDICAL CAPACITY SERV FOUNDATIO ARTERIAL 92388 [facility] PUNCTURE 3 Y Y WITHDRAWA [facility] L BLOOD DX CONTINUOU E0601 AYLIN VIERA S 3 HOME HOME POSITIVE MEDICAL MEDICAL AIRWAY EQUIPME EQUIPME PRESSURE DEVICE [facility] [address] [place] [facility] DISCHARGE 3 MEDICAL AJU HAZEL DAY SERV MANAGEMEN FOUNDATIO T 30 MIN/< THER 17872 [facility] PROPH/DX 3 [facility] NJX IV INC INC PUSH SINGLE/1S T SBST/DRUG ECG 14448 POPPY SANTA ROUTINE 3 EMERGENCY ECG SERVICES W/LEAST 12 LDS I&R ONLY ECG 65776 [facility] ROUTINE 3 [facility] ECG INC INC W/LEAST 12 LDS TRCG ONLY W/O I&R BLOOD 47666 [facility] COUNT [facility] COMPLETE INC INC AUTO&AUTO DIFRNTL WBC CULTURE 91131 [facility] BACTERIAL 3 [facility] BLOOD INC INC AEROBIC W/ID ISOLATES SUSCEPTIB 32387 [facility] LTY STDY 3 [facility] ANTIMICRB INC INC IAL MICRO/AGA R DILUTJ SMR PRIM 33370 [facility] SRC 3 [facility] GRAM/GIEM INC INC SA STAIN BCT FUNGI/[place] [address] [facility] [facility] ANGIOGRAP 3 MEDICAL HY CHEST SERV W/CONTRAS FOUNDATIO T/NONCONT RAST RADIOLOGI 60821 [facility] C 3 [facility] EXAMINATI INC INC ON CHEST SINGLE VIEW FRONTAL CUL BACT 65831 [facility] XCPT 3 [facility] URINE INC INC BLOOD/STO OL AEROBIC ISOL RADIOLOGI 49442 [facility] C EXAM 3 [facility] CHEST 2 INC INC VIEWS FRONTAL&L ATERAL CUL BACT 54944 [facility] AEROBIC 3 [facility] ADDL INC INC METHS DEFINITIV E EA ISOL COMPREHEN 95667 [facility] SIVE 3 [facility] METABOLIC INC INC PANEL GROUND A0425 [facility] MILEAGE 3 AMBULANCE AMBULANCE PER SERVICE SERVICE STATUTE MILE AMBULANCE A0429 [facility] SERVICE 3 AMBULANCE AMBULANCE BLS SERVICE SERVICE EMERGENCY TRANSPORT PRESSURIZ 48191 [place] [facility] ED/NONPRE 3 [facility] SSURIZED INC INC INHALATIO N TREATMENT PHRM Q0513 YOUR YOUR DISPENSIN 3 PHARMACY PHARMACY G FEE [employer] INHALATIO N RX; PER 30 DAYS ADMN SET A7003 YOUR YOUR SM VOL 3 PHARMACY PHARMACY NONFILTR makerSQR [facility] PNEUMAT NEBULIZR DISPBL ALBUTEROL J7620 YOUR YOUR TO 2.5 3 PHARMACY PHARMACY MG & [employer] IPRATROPI UM BROM TO 0.5 MG NEBULIZER E0570 AYLIN VIERA WITH 3 HOME HOME COMPRESSO MEDICAL MEDICAL R EQUIPME EQUIPME PRTBLE E0431 AYLIN VIERA GASEOUS 3 HOME HOME O2 SYS MEDICAL MEDICAL RENT; EQUIPME EQUIPME FLWMTR HUMIDFR&M ASK O2 CONC 1 E1390 AYLIN VIERA DEL PORT 3 HOME HOME 85%/>02 MEDICAL MEDICAL CONC AT EQUIPME EQUIPME PRSC FLW RATE RADIOLOGI 64229 [facility] C EXAM 3 [facility] CHEST 2 INC INC VIEWS FRONTAL&L ATERAL CONTINUOU E0601 AYLIN VIERA S 3 HOME HOME POSITIVE MEDICAL MEDICAL AIRWAY EQUIPME EQUIPME PRESSURE DEVICE COMPREHEN 62294 [facility] SIVE 3 [facility] [place] [address] [facility] HEAD/BRAI 3 [facility] N W/O INC INC CONTRAST MATERIAL CREATINE 29799 [facility] KINASE MB 3 [facility] [place] [address] [facility] TROPONIN 3 MEM [facility] QUANTITAT INC INC COURTNEY BLOOD 54661 [place] COUNT 3 [facility] COMPLETE INC INC AUTO&AUTO DIFRNTL WBC ECG 60935 [place] ROUTINE 3 [facility] ECG INC INC W/LEAST 12 LDS TRCG ONLY W/O I&R 3D 64408 [place] RENDERING 3 [facility] W/INTERP INC INC & POSTPROCE SS SUPERVISI ON CREATINE 69142 [place] KINASE 3 [facility] TOTAL INC INC RHYTHM 59588 [place] ECG 1-3 3 [facility] LEADS INC INC TRACING ONLY W/O I&R ECG 47641 POPPY SANTA ROUTINE 3 EMERGENCY ECG SERVICES W/LEAST 12 LDS I&R ONLY PRTBLE E0431 AYLIN VIERA GASEOUS 3 HOME HOME O2 SYS MEDICAL MEDICAL RENT; EQUIPME EQUIPME FLWMTR HUMIDFR&M ASK O2 CONC 1 E1390 AYLIN VIERA DEL PORT 3 HOME HOME 85%/>02 MEDICAL MEDICAL CONC AT EQUIPME EQUIPME PRSC FLW RATE NEBULIZER E0570 AYLIN VIERA WITH 3 HOME HOME COMPRESSO MEDICAL MEDICAL R EQUIPME EQUIPME CONTINUOU E0601 AYLINERNESTO VIERA S 3 HOME HOME POSITIVE MEDICAL MEDICAL AIRWAY EQUIPME EQUIPME PRESSURE DEVICE FULL FACE A7030 AYLIN AYLIN MASK 3 HOME HOME USED MEDICAL MEDICAL [...] PER SESS TO 2 PER DAY BLOOD 72412 LAB [facility] LAB HEIDI COUNT 3 AMERIC AMERIC COMPLETE HOLDING HOLDING AUTOMATED C-REACTIV 55428 [facility] HEIDI E PROTEIN 3 AMERIC AMERIC HOLDING HOLDING COLLECTIO 27383 [facility] LAB HEIDI N VENOUS 3 AMERIC AMERIC BLOOD HOLDING HOLDING VENIPUNCT URE COMPREHEN 85224 LAB HEIDI LAB HEIDI SIVE 3 AMERIC AMERIC METABOLIC HOLDING HOLDING PANEL PULM G0424 [place] REHAB 3 MEM [...] PER SESS TO 2 PER DAY POLYSOM 19455 [place] 6/>YRS 3 MEM HOSP MEM [...] SESS TO 2 PER DAY STANDARD K0001 AYLINERNESTO VIERA ALEJANDROI 3 HOME HOME R MEDICAL MEDICAL EQUIPME EQUIPME NEBULIZER E0570 AYLINERNESTO VIERA WITH 3 HOME HOME COMPRESSO MEDICAL MEDICAL R EQUIPME EQUIPME GAS 62390 [place] DILUT/WAS 3 [facility] HOUT LUNG INC INC VOL W/WO DISTRIB VENT&V O2 CONC 1 E1390 AYLINERNESTO VIERA DEL PORT 3 HOME HOME 85%/>02 MEDICAL MEDICAL CONC AT EQUIPME EQUIPME PRS FLW RATE BRNCDILAT 70946 [place] RSPSE 3 MEM [facility]OS[facility]OS[facility] SPMTRY INC INC PRE&POST- BRNCDILAT ADMN PRTBLE E0431 AYLIN ABARCARELL GASEOUS 3 HOME HOME O2 SYS MEDICAL MEDICAL RENT; EQUIPME EQUIPME FLWMTR HUMIDFR&M ASK BLOOD 10622 [facility] COUNT 3 Y Y COMPLETE [facility] AUTO&AUTO DIFRNTL WBC RHEUMATOI 78797 [facility] D FACTOR 3 Y Y QUANTITAT [facility] COURTNEY PREALBUMI 80346 [facility] N 3 Y Y [facility] IRON 98320 [facility] BINDING 3 Y Y CAPACITY [facility] CYANOCOBA 62498 [facility] CLARISSE 3 Y Y VITAMIN [facility] B-12 [place] [address] [facility] FOLIC 3 Y Y ACID RBC [facility] RADIOLOGI 04074 [place] SARAH C EXAM 3 MEDICAL CHEST 2 SERV VIEWS FOUNDATIO FRONTAL&L ATERAL COMPREHEN 51734 [facility] SIVE 3 Y Y METABOLIC [facility] PANEL ANTINUCLE 59127 [facility] LAB HEID[facility] AR 3 Y [facility] [place] FLUORESCE 04550 [facility] NT 3 Y Y NONNFCT [facility] AGT ANTB SCREEN EA ANTIBODY COLLECTIO 35288 [facility] N VENOUS 3 Y Y BLOOD [facility] VENIPUNCT URE STANDARD K0001 AYLIN VIERA WHEELCHAI 3 HOME HOME R MEDICAL MEDICAL EQUIPME EQUIPME NEBULIZER E0570 AYLIN VIERA WITH 3 HOME HOME COMPRESSO MEDICAL MEDICAL R EQUIPME EQUIPME O2 CONC 1 E1390 AYLIN ABARCARELL DEL PORT 3 HOME HOME 85%/>02 MEDICAL MEDICAL CONC AT EQUIPME EQUIPME [facility] FLW [facility]ATE PRTBLE E0431 AYLIN VIERA GASEOUS 3 HOME HOME O2 SYS MEDICAL MEDICAL RENT; EQUIPME EQUIPME FLWMTR HUMIDFR&M ASK POLYSOM 38587 [place] 6/>YRS 3 [facility] SLEEP INC INC W/CPAP 4/> [facility] [address] [place] [facility] DISCHARGE 3 MEDICAL JAG DAY SERV MANAGEMEN FOUNDATIO T 30 MIN/< SBSQ 68673 [place] [facility] 3 MEDICAL JAG CARE/DAY SERV 25 FOUNDATIO MINUTES RADEX ABD 16513 [place] DISANTIS COMPL 3 MEDICAL SIDDHARTHA AQT ABD SERV W/S/E/D FOUNDATIO VIEWS 1 VIEW CH RADEX ABD 13174 [place] JESICA JAM COMPL 3 MEDICAL AQT ABD SERV W/S/E/D [place]IE[place] [address] [place] [address] [place] SOHEILA ABDOMINAL 3 MEDICAL DEENA REAL SERV TIME FOUNDATIO W/IMAGE LIMITED INITIAL 87782 [place] [facility] 3 MEDICAL MARION CARE/DAY SERV 70 FOUNDATIO MINUTES FULL FACE A7030 AYLIN VIERA MASK 3 HOME HOME USED MEDICAL MEDICAL W/POS EQUIPME EQUIPME ARWAY PRESS DEVICE EA STANDARD K0001 AYLIN AYLIN WHEELCHAI 3 HOME HOME R MEDICAL MEDICAL EQUIPME EQUIPME O2 CONC 1 E1390 AYLIN AYLIN DEL PORT 3 HOME HOME 85%/>02 MEDICAL MEDICAL CONC AT EQUIPME EQUIPME PRSC FLW RATE NEBULIZER E0570 AYLIN VIERA WITH 3 HOME HOME COMPRESSO MEDICAL MEDICAL R EQUIPME EQUIPME PRTBLE E0431 AYLIN AYLIN GASEOUS 3 HOME HOME O2 SYS MEDICAL MEDICAL RENT; EQUIPME EQUIPME FLWMTR HUMIDFR&M ASK SEAT E0156 AYLIN AYLIN ATTACHMEN 3 HOME HOME T WALKER MEDICAL MEDICAL EQUIPME EQUIPME WALKER E0143 AYLIN AYLIN FOLDING 3 HOME HOME WHEELED MEDICAL MEDICAL ADJUSTABL EQUIPME EQUIPME E/FIXED HEIGHT RADIOLOGI 20967 [facility] [place] KOSTELIC C EXAM 3 RADIOLOGY MONTSERRAT CHEST 2 VIEWS FRONTAL&L ATERAL DUP-SCAN 25315 JERRI JERRI XTR VEINS 3 ESPERANZA ESPERANZA COMPLETE BILATERAL STUDY RADIOLOGI 49232 [facility] [place] NOEL C EXAM 3 RADIOLOGY GODFREY CHEST 2 VIEWS FRONTAL&L ATERAL MRI BRAIN 85116 [place] LUKINS BRAIN 3 MEDICAL TIERRA STEM W/O SERV CONTRAST FOUNDATIO MATERIAL SBSQ 93527 [facility] 3 E CARE CARE/DAY CTR OF 15 THE B MINUTES BRNCC 74932 [place] [facility] INCL 3 MEDICAL OSCAR FLUOR SERV GDNCE DX FOUNDATIO W/CELL WASHG SPX SBSQ 93530 [facility] 3 E CARE CARE/DAY CTR OF 25 THE B MINUTES CLOSED 3324 [facility] 3 Y Y BRONCHUS [facility] VENOUS 3893 [facility] CATHETER 3 Y Y ZATION [facility] NOT ELSEWHERE CLASSIFIE D ECG 19453 [facility] ROUTINE 3 MEDICAL ECG SERV W/LEAST FOUNDATIO 12 LDS I&R ONLY ECG 36387 TARAS HU ROUTINE 3 MEDICAL NAN ECG SERV W/LEAST FOUNDATIO 12 LDS I&R ONLY CONTINUOU E0601 AYLIN VIERA S 2 HOME HOME POSITIVE MEDICAL MEDICAL AIRWAY EQUIPME EQUIPME PRESSURE DEVICE STANDARD K0001 AYLIN VIERA WHEELCHAI 2 HOME HOME R MEDICAL MEDICAL EQUIPME EQUIPME THORACOSC 3320 [facility] LUNG 2 [facility] 18071 [employer] CRMO CHI ROUTINE 2 MEDICAL ECG SERV W/LEAST FOUNDATIO 12 LDS I&R ONLY ECG 27561 TARAS MOE CHET ROUTINE 2 MEDICAL ECG SERV W/LEAST FOUNDATIO 12 LDS I&R ONLY ECG 48798 [place] ROQUE CHI ROUTINE 2 MEDICAL ECG SERV W/LEAST FOUNDATIO 12 LDS I&R ONLY ECG 13702 TARAS HU ROUTINE 2 MEDICAL NAN ECG SERV W/LEAST FOUNDATIO 12 LDS I&R ONLY INSERTION 9604 [facility] 2 Y Y [facility] EAL TUBE CONT 9671 [facility] 2 Y Y [facility] < 96 CONSECUTI VE HOURS RADIOLOGI 55760 [place] DAWNA C 2 MEDICAL TIERRA EXAMINATI IMAGING ON CHEST ASS SINGLE VIEW FRONTAL RADIOLOGI 44428 [place] DAWNA C 2 MEDICAL TIERRA EXAMINATI IMAGING ON CHEST ASS SINGLE VIEW FRONTAL ADMN SET A7003 YOUR YOUR SM VOL 2 PHARMACY PHARMACY NONFILTR [employer] PNEUMAT NEBULIZR DISPBL PHARM G0333 YOUR YOUR DISPEN 2 PHARMACY PHARMACY FEE INHAL [employer] RX; INITIAL 30-DAY SUPPLY ALBUTEROL J7620 YOUR YOUR TO 2.5 2 PHARMACY PHARMACY [employer] [facility] IPRATROPI UM BROM TO 0.5 MG ECG 96712 POPPY KEENE ROUTINE 2 EMERGENCY VENUS ECG SERVICES W/LEAST 12 LDS I&R ONLY RADIOLOGI 68351 [place] DAWNA C EXAM 2 MEDICAL TIERRA CHEST 2 IMAGING VIEWS ASS FRONTAL&L ATERAL SMR PRIM 25503 [facility] SRC CPLX 2 N N SPEC COMMUNITY COMMUNITY STAIN HOSPITA HOSPITA OVA&CHAD ITS SMR PRIM 29323 [facility] SRC 2 N N GRAM/GIEM COMMUNITY COMMUNITY SA STAIN HOSPITA HOSPITA BCT FUNGI/LEONIDES L OVA&CHAD 40015 [facility] ITES 2 N N DIRECT COMMUNITY COMMUNITY SMEARS HOSPITA HOSPITA CONCENTRA TION & ID BLOOD 63416 [facility] OCCULT 2 N N PEROXIDAS COMMUNITY COMMUNITY E ACTV HOSPITA HOSPITA QUAL FECES 1-3 SPEC BLOOD 00420 CULBERTSO CULBERTSO OCCULT 2 N KALYAN N KALYAN PEROXIDAS E ACTV QUAL FECES 1 DETER BLOOD 66710 LAB HE[facility]I LAB HEIDI COUNT 2 AMERIC AMERIC COMPLETE HOLDING HOLDING AUTOMATED COMPREHEN 86976 LAB HE[facility]I LAB HEIDI SIVE 2 AMERIC AMERIC METABOLIC HOLDING HOLDING PANEL C-REACTIV 72763 LAB [facility] LAB HEIDI E PROTEIN 2 AMERIC [employer] HOLDING HOLDING COLLECTIO 04798 LAB HE[facility] LAB HEIDI N VENOUS 2 AMERIC AMERIC BLOOD HOLDING HOLDING VENIPUNCT URE COLLECTIO 54719 LAB [facility] LAB HEIDI N VENOUS 1 AMERIC AMERIC BLOOD HOLDING HOLDING VENIPUNCT URE C-REACTIV 68935 LAB [facility] LAB HEIDI E PROTEIN 1 AMERIC [employer] HOLDING HOLDING COMPREHEN 56338 [facility] LAB HEIDI SIVE 1 AMERIC AMERIC METABOLIC HOLDING HOLDING PANEL BLOOD 36558 LAB HE[facility]I LAB HEIDI COUNT 1 AMERIC AMERIC COMPLETE HOLDING HOLDING AUTOMATED WALKING L4360 [employer] BOOT 1 PNEUMATC &/ VACUUM PREFAB CUSTM FIT RADEX 72494 [place] EMELIA JAM ANKLE 1 MEDICAL COMPLETE SERV MINIMUM 3 FOUNDATIO VIEWS TRANSFERA 77805 [facility] SE 1 [place] [employer] ASPARTATE AMINO AST SGOT COLLECTIO 10328 [facility] N VENOUS 1 [employer] [place] [employer] INC BLOOD VENIPUNCT URE LIPID 07199 [facility] PANEL 1 [place] [employer] [facility] RADIOLOGI 21963 [place] HUMMEL C 1 MEDICAL GODFREY EXAMINATI SERV ON FOOT 2 FOUNDATIO VIEWS APPLICATI 97239 [place] ON SHORT 1 MEDICAL MEDICAL LEG CAST SERV SERV WALKING/A FOUNDATIO FOUNDATIO MBULATORY CAST Q4038 [place] JUAN SUPPLIES 1 MEDICAL KAMALA SHORT LEG SERV CAST FOUNDATIO ADULT FIBERGLAS S CAST Q4038 [place] JUAN SUPPLIES 1 MEDICAL [place] SHORT LEG SERV CAST FOUNDATIO ADULT FIBERGLAS S APPLICATI 28632 [place] ON SHORT 1 MEDICAL MEDICAL LEG CAST SERV SERV BELOW FOUNDATIO FOUNDATIO [facility] G0378 [facility] OBSERVATI 0 Y Y ON HOSPITAL HOSPITAL SERVICE PER HOUR PHYSICAL 43725 [facility] THERAPY 0 Y [facility] N 56761 TARAS DUARTE GUIDANCE 0 MEDICAL JUS NEEDLE SERV PLACEMENT FOUNDATIO IMG S&I ARTHRODES 98273 [facility] IS 0 Y [facility] ANESTHESI 72067 TARAS DUARTE A ON BONY 0 MEDICAL JUS PELVIS SERV FOUNDATIO BONE 12-14 [facility] GRAFT ANY 0 Y Y [facility] HOSPITAL AREA MAJOR/LAR GE INJECTION 15702 TARAS ILINSCOTT 0 MEDICAL JUS ANESTHETI SERV C AGENT FOUNDATIO SCIATIC NRV SINGLE INJECTION 91789 [facility] 0 MEDICAL JUS ANESTHETI SERV C AGENT FOUNDATIO FEMORAL NERVE SINGLE FLUOROSCO 10949 [facility] PY SPX >1 0 Y [facility] PHYS/QHP TIME CUL BACT 48542 LAB [facility] LAB HEIDI XCPT 0 AMERIC AMERIC URINE HOLDING HOLDING BLOOD/STO OL AEROBIC ISOL CULTURE 62402 LAB [facility] LAB HEIDI BACTERIAL 0 AMERIC AMERIC ANY HOLDING HOLDING SOURCE ANAEROBIC ISO&ID SMR PRIM 66409 LAB [facility] LAB HEIDI SRC 0 AMERIC AMERIC GRAM/GIEM HOLDING HOLDING SA STAIN BCT FUNGI/[place] [address] [place] TROPONIN 0 [facility] QUANTITAT INC INC COURTNEY BLOOD 70994 [place] COUNT 0 [facility] COMPLETE INC INC AUTO&AUTO DIFRNTL WBC ECG 67042 [place] MARTINEZKEMIE ROUTINE 0 [facility] W/LEAST P 12 LDS I&R ONLY ECG 41350 [place] ROUTINE 0 [facility] ECG INC INC W/LEAST 12 LDS TRCG ONLY W/O I&R CREATINE 24661 [place] KINASE 0 [facility] TOTAL INC INC THER 03004 [place] PROPH/DX 0 [facility] NJX IV INC INC PUSH SINGLE/1S T SBST/DRUG CREATINE 27912 [place] KINASE MB 0 [facility] FRACTION INC INC ONLY BASIC 47061 [place] METABOLIC 0 [facility] PANEL INC INC CALCIUM TOTAL RADIOLOGI 19519 [place] DAWNA C 0 MEDICAL TIERRA EXAMINATI IMAGING ON CHEST ASS SINGLE VIEW FRONTAL PRESSURIZ 33325 [place] ED/NONPRE 0 [facility] SSURIZED INC INC INHALATIO N TREATMENT CT LOWER 20306 [place] EXTREMITY 0 [facility] W/O INC INC CONTRAST MATERIAL 3D 73114 [place] RENDERING 0 [facility] W/INTERP& POSTPROC DIFF WORK STATION DUP-SCAN 33683 [place] XTR VEINS 0 [facility] UNILATERA L/LIMITED STUDY INJECTION J1040 MONICA MOSLEYO 9 N, GEREMIAS DOUGHERTY METHYLPRE DNISOLONE ACETATE 80 MG BLOOD 84536 MONICA MOSLEYO OCCULT 9 N, GEREMIAS DOUGHERTY PEROXIDAS E ACTV QUAL FECES 1 DETER CV STRS 14620 MONICA MOSLEYO TST 9 N, GEREMIAS DOUGHERTY XERS&/OR RX CONT ECG W/O I&R CV STRS 14023 [facility] TST 9 N N XERS&/OR COMMUNITY COMMUNITY RX CONT HOSPITAL HOSPITAL ECG TRCG ONLY MYOCRD 68553 [facility] CAROLAANAFINNKRISTOFERUJ STD 9 N FAMILY [place] EJEC FXJ PHYS PSC MYOCRD 62823 [facility] JUAN ALBERTO PRFUJ STD 9 N [facility] ALEJO WALL PHYS PSC MOTION QUAL/RENEE STD TECHNETIU A9500 [facility] TC-99M 9 N N SESTAMIBI COMMUNITY COMMUNITY DX PER HOSPITAL HOSPITAL STUDY DOSE CV STRS 69110 MONICA ANDERSON TST 9 N, GEREMIAS DOUGHERTY XERS&/OR RX CONT ECG I&R ONLY MYOCRD 06301 [facility] KRISTOFER AVENDANOUJ IMG 9 N FAMILY [place] TOMOG PHYS PSC SPECT AUTO DESIGN DETAILER STD COLLECTIO 57742 [facility] N VENOUS 9 [facility] [address] [facility] IRON 9 [facility] IRON 16600 [facility] BINDING 9 [facility] CAPACITY BLOOD 68396 [facility] COUNT 9 [facility] COMPLETE AUTO&AUTO DIFRNTL WBC COLLECTIO 97863 [facility] N VENOUS 9 [facility] BLOOD VENIPUNCT URE INFLUENZA G9141 CULBERTSO CULBERTSO A H1N1 9 N, GEREMIAS N, GEREMIAS IMMUNIZAT ION ADMINISTR ATION PWR E2365 ALLIED ALLIED WHLCHAIR 9 HOME HOME ACSS U-1 MEDICAL, MEDICAL, SEALED INC. INC. LEAD ACID BATTRY EA REPR/SRVC K0739 ALLIED ALLIED DME NOT 9 HOME HOME O2 RQR MEDICAL, MEDICAL, TECH INC. INC. CMPNT PER 15 MINS CULTURE 90939 LAB [facility] LAB HEIDI BACTERIAL 9 AMERIC AMERIC ANY HOLDING HOLDING SOURCE ANAEROBIC ISO&ID CUL BACT 00575 LAB [facility] LAB HEIDI XCPT 9 AMERIC AMERIC URINE HOLDING HOLDING BLOOD/STO OL AEROBIC ISOL SMR PRIM 37812 [facility] LAB HEIDI SRC 9 AMERIC AMERIC GRAM/GIEM HOLDING HOLDING SA STAIN BCT FUNGI/LEONIDES L SUSCEPTIB 48162 [facility] HEIDI LTY STDY 9 AMERIC AMERIC ANTIMICRB HOLDING HOLDING IAL MICRO/AGA R DILUTJ LIPID 15506 [facility] PANEL 9 [facility] [place] [facility] COMPREHEN 03494 [facility] SIVE 9 [facility] [place] [facility] METABOLIC PANEL COLLECTIO 37338 [facility] N VENOUS 9 [facility] [place] [address] [facility] PROSTATE 9 [facility] SPECIFIC ANTIGEN TOTAL REMOVAL 79618 [facility] IMPLANT 9 Y [facility] INJECTION J3010 [facility] FENTANYL 9 Y Y [facility] 0.1 MG FLUOROSCO 23557 [facility] PY SPX >1 9 Y [facility] PHYS/[place] [address] [place] CIBULL, SURG 9 MEDICAL [place] PATHOLOGY SERV GROSS FOUNDATIO EXAMINATI ON ONLY CUL BACT 49249 [facility] XCPT 9 Y [facility] BLOOD/STO OL AEROBIC ISOL INJECTION J2270 [facility] MORPHINE 9 Y [facility] UP TO 10 MG INJECTION J0690 [facility] 9 Y [facility] SODIUM 500 MG INJECTION J2175 [facility] 9 Y [facility] E HCL PER 100 MG RINGERS J7120 [facility] LACTATE 9 Y [facility] UP TO 1000 CC SMR PRIM 60427 [facility] SRC 9 Y Y GRAM[facility]EM [facility] SA STAIN BCT FUNGI/LEONIDES L BLOOD 67614 [facility] COUNT 9 Y Y COMPLETE HOSPITAL HOSPITAL AUTOMATED ECG 12735 [place] RENA, ROUTINE 9 MEDICAL MARIXA G ECG SERV W/LEAST FOUNDATIO 12 LDS I&R ONLY ECG 26862 [facility] ROUTINE 9 Y Y ECG HOSPITAL HOSPITAL W/LEAST 12 LDS TRCG ONLY W/O I&R COLLECTIO 36778 [facility] N VENOUS 9 Y Y BLOOD [facility] VENIPUNCT URE RADEX 75784 [facility] FOOT 9 Y Y COMPLETE [facility] MINIMUM 3 VIEWS BASIC 59754 [facility] METABOLIC 9 Y Y PANEL [facility] CALCIUM TOTAL INJ J0702 [facility] MAKSIM BETAMETHA 9 LTH II, NESHA SONE ORTHOPAED A ACETATE & IC SURGEONS PHOSPHATE PSC 3 MG ARTHROCEN 71447 [facility] MAKSIM TESIS 9 LTH II, NESHA ASPIR&/IN ORTHOPAED A J MAJOR IC JT/BURSA SURGEONS W/O US PSC COLLECTIO 78347 [facility] UNIVERS N VENOUS 9 Y Y BLOOD [facility] VENIPUNCT URE CUL BACT 25877 [facility] XCPT 9 Y Y URINE [facility] BLOOD/STO OL AEROBIC ISOL CELL 82412 [facility] COUNT 9 Y Y [facility] HOSPITAL FLUIDS W/DIFFERE NTIAL COUNT SMR PRIM 37631 [facility] SRC 9 Y Y GRAM/GIEM [facility] SA STAIN BCT FUNGI/LEONIDES L PWR E2365 ALLIED ALLIED WHLCHAIR 9 HOME HOME ACSS U-1 MEDICAL, MEDICAL, SEALED INC. INC. LEAD ACID BATTRY EA REP/NONRO E1340 ALLIED ALLIED UTINE 9 HOME HOME SRVC DME MEDICAL, MEDICAL, RQR SKL INC. INC. TECH LABR-15 MIN SBSQ 70430 [facility] 8 EMERGENCY N, CARE/DAY SERVICES TADARRO 25 MINUTES ASSOCIATE S ANESTH 05593 KRANTHI CARDOZO 8 [facility] REEMA Harvey ANESTHESI ARTHROSCO A PSC PIC PROC KNEE JOINT LEVEL III 62940 [place] ANN, SURG 8 MEDICAL TIM E PATHOLOGY SERV FOUNDATIO GROSS&VENUS ROSCOPIC EXAM INITIAL 85685 [facility] INPATIENT 8 EMERGENCY N, CONSULT SERVICES TADARRO NEW/ESTAB PT 110 ASSOCIATE MIN S ANES 77360 [place] HIRO, LOWER 8 ANESTHESI JENNIFER Vieira INTESTINE A GROUP PSC ENDOSCOPY DISTAL DUODENUM COLONOSCO 07284 [facility], PY FLX DX 8 [place] RICHY G W/COLLJ GASTROENT SPEC WHEN PFRMD CELL 97884 [facility] COUNT 8 Y Y MISC BODY [facility] FLUIDS W/DIFFERE NTIAL COUNT CUL BACT 93494 [facility] XCPT 8 Y Y URINE [facility] BLOOD/STO OL AEROBIC ISOL SMR PRIM 63199 [facility] SRC 8 Y Y GRAM/GIEM [facility] SA STAIN BCT FUNGI/LEONIDES L SMALL A7004 PULMO PULMO VOLUME 8 DOSE DOSE NONFILTR PHARMACY PHARMACY PNEUMATIC NEBULIZER DISPBL ALBUTEROL J7620 PULMO PULMO TO 2.5 8 DOSE DOSE MG & PHARMACY PHARMACY IPRATROPI UM BROM TO 0.5 MG ADMN SET A7003 PULMO PULMO SM VOL 8 DOSE DOSE NONFILTR PHARMACY PHARMACY PNEUMAT NEBULIZR DISPBL PHRM Q0514 PULMO PULMO DISPENSIN 8 DOSE DOSE G FEE PHARMACY PHARMACY INHALATIO N RX; PER 90 DAYS PHRM Q0513 PULMO PULMO DISPENSIN 8 DOSE DOSE G FEE PHARMACY PHARMACY INHALATIO N RX; PER 30 DAYS ADMN SET A7003 PULMO PULMO SM VOL 8 DOSE DOSE NONFILTR PHARMACY PHARMACY PNEUMAT NEBULIZR DISPBL ALBUTEROL J7620 PULMO PULMO TO 2.5 8 DOSE DOSE MG & PHARMACY PHARMACY IPRATROPI UM BROM TO 0.5 MG SMALL A7004 PULMO PULMO VOLUME 8 DOSE DOSE NONFILTR PHARMACY PHARMACY PNEUMATIC NEBULIZER DISPBL DUP-SCAN 73397 [facility] LXTR 8 N N ART/ARTL [facility] COMPL BI STUDY ALBUTEROL J7620 PULMO [...] NONFILTR PHARMACY PHARMACY PNEUMAT NEBULIZR DISPBL RADIOLOGI 37702 MAKSIM MAKSIM C 8 II, NESHA II, NESHA EXAMINATI A A ON KNEE 1/2 VIEWS RADIOLOGI 20768 MAKSIM MAKSIM C EXAM 8 II, NESHA II, NESHA KNEE A A COMPLETE 4/MORE VIEWS ALBUTEROL J7620 PULMO PULMO TO 2.5 8 DOSE DOSE MG & PHARMACY PHARMACY IPRATROPI UM BROM TO 0.5 MG PHRM Q0513 PULMO PULMO DISPENSIN 8 DOSE DOSE G FEE PHARMACY PHARMACY INHALATIO N RX; PER 30 DAYS Encounters Encounter Start End Date Code Location Performer [facility] [address] 3 Y [facility] [place] - 3 3 [facility] 3 3 [facility] - 3 3 Y [facility]PATIENT [facility]PITAL EMERGENCY 39429 T[facility]AS SALAZAR DEPT 3 3 MEDICAL JORGE VISIT SERV HIGH FOUNDATIO SEVERITY& THREAT [facility] Emergency NICOLÁS Keene MD (ER) 3 22:37 3 00:59 [facility] [place] - 3 3 [facility] OUTPATIEN INC T OFFICE 21008 ARTHRITIS AL[facility]ERT[facility] R[facility] OUTPATIEN 3 3 CENTER T VISIT OF 25 [facility] 3 3 Y [facility] T Emergency NICOLÁS Millard MD (ER) 3 15:20 3 17:49 [facility] EMERGENCY 91445 [place] DEPT 3 3 [facility] VISIT INC HIGH SEVERITY& THREAT [facility] [place] - 3 3 [facility]OSP[facility] [place] - 3 3 [facility] OUTPATIEN INC T OFFICE [id number] A C JALEESA OUTPATIEN 3 3 FILEMON IBRAHIM JEAvtar T VISIT PSC 15 MINUTES Emergency NICOLÁS Millard MD (ER) 3 14:54 3 16:00 [facility] EMERGENCY 22724 POPPY SANTA DEPT 3 3 EMERGENCY VISIT SERVICES HIGH SEVERITY& THREAT [facility] [place] - 3 3 [facility] OUTPATIEN INC T EMERGENCY 78137 [place] 3 3 [facility] DEPARTMEN INC T VISIT HIGH/URGE NT SEVERITY OFFICE 06875 [facility]RITIS [facility] OUTPATIEN 3 3 CENTER T VISIT OF 25 [facility] OFFICE 54124 A C JOMARLA OUTPATIEN 3 3 FILEMON SHAH T VISIT PSC 15 MINUTES HOSPITAL [place] - 3 3 [facility] OUTPATIEN INC T OFFICE 04441 ARTHRITIS [facility] OUTPATIEN 3 3 CENTER T VISIT OF 10 [facility] [place] - [address] [facility] [place] [facility] 3 3 [facility] OFFICE 73660 ARTHRITIS [facility] RIT OUTPATIEN 3 3 CENTER T VISIT OF 25 [facility] [place] - 3 3 [facility] UNIVERSIT - 3 3 [facility] OFFICE [address]94 [place] [facility] 3 3 MEDICAL JAM T VISIT SERV 40 [facility] [place] - 3 3 [facility] UN[facility]ERSIT - 3 3 Y [facility]PATIENT [facility]PITAL EMERGENCY 00320 TARAS LANTIGUA DEPT 3 3 MEDICAL LACQUER SIZER VISIT SERV HIGH FOUNDATIO SEVERITY& THREAT [facility] OFFICE 92638 TARAS GATES OUTPATIEN 3 3 MEDICAL [place] T VISIT SERV ANG 25 [facility]ERSIT - 2 3 [facility] EMERGENCY 11775 POPPY KEENE DEPT 2 2 EMERGENCY VENUS VISIT SERVICES HIGH SEVERITY& THREAT [facility] EMERGENCY 48816 POPPY SANTA DEPT 2 2 EMERGENCY VISIT SERVICES HIGH SEVERITY& THREAT [facility] [place] 19284 [facility] 52379 CULBERTSO CULBERTSO OUTPATIEN 2 2 N KALYAN N KALYAN T VISIT 15 MINUTES OFFICE 11268 CULBERTSO CULBERTSO OUTPATIEN 1 1 N KALYAN N KALYAN T VISIT 15 MINUTES HOSPITAL [facility]ERS[facility] - 1 1 Y [facility] - 1 1 Y [facility] - 0 0 [facility] OFFICE 95099 CULBERTSO CULBERTSO OUTPATIEN 0 0 N KALYAN BIGGS T VISIT 15 MINUTES OFFICE 58977 TARAS MARTINEZ OUTPATIEN 0 0 MEDICAL KAMALA T VISIT SERV 15 FOUNDATIO MINUTES EMERGENCY 20686 [place] 0 0 [facility] DEPARTMEN INC T VISIT MODERATE SEVERITY [facility] [place] - 0 0 [facility] OUT[facility]IEN [facility] EMERG[facility] 67076 POPPY MORRISSEY DEPT 0 0 EMERGENCY III TRISTA VISIT SERVICES HIGH SEVERITY& THREAT [facility] OFFICE 28289 TARAS MARTINEZ OUTPATIEN 0 0 MEDICAL KAMALA T VISIT SERV 15 FOUNDATIO MINUTES [facility] [place] [facility] OUTPATIEN [facility] T EMERGENCY 93569 [place] 0 0 [facility] DEPARTMEN INC T VISIT LOW/MODER SEVERITY OFFICE 28052 CULBERTSO CULBERTSO OUTPATIEN 9 9 N, GEREMIAS DOUGHERTY VISIT 15 MINUTES [facility] - 9 9 N [facility] OFF[facility] 14552 CULBERTSO CULBERTSO OUTPATIEN 9 9 GEREMIAS Bautista ROBERT T VISIT 15 MINUTES OFFICE 41760 CULBERTSO CULBERTSO OUTPATIEN 9 9 GEREMIAS Bautista ROBERT T VISIT 25 MINUTES OFFICE 14760 CULBERTSO CULBERTSO OUTPATIEN 9 9 GEREMIAS Bautista ROBERT T VISIT 15 MINUTES HOSPITAL UN[facility]ERS[facility] - 9 9 Y [facility] OFFICE 82553 KAM ENCARNACION 9 9 MEDICAL TONO J ION SERV NEW/ESTAB FOUNDATIO PATIENT 40 MIN [facility]PITAL UNIVERSIT - 9 9 Y [facility] - 9 9 Y [facility] T OFFICE 48082 [facility] [facility] DE[facility], NESHA T VISIT ORTHOPAED A 15 IC MINUTES [facility] UNIVERSIT - 8 8 Y [facility] T OFFICE [id number] MOINCA ANDERSON [facility] 8 8 N, GEREMIAS DOUGHERTY T VISIT 15 MINUTES [facility] 8 8 N [facility] OFF[facility] [id number] [facility] 8 8 II, NESHA IINESHA T VISIT A A 15 MINUTES
--- OUTSIDE RECORDS SUMMARY | 2016-09-28 15:17 | External Medical Summary Rpt ---
Author Author , Organization [employer] Address Unknown Phone Unavailable Care Team Providers Care Senior Pharmacy Technician Name Role Phone A Candice COLBERT MD PSC, A Unavailable Unavailable Candice COLBERT MD PSC MARTIN MCKINNEY Unavailable Unavailable REEMA ELDER, Unavailable Unavailable REEMA BOOTH [facility] Un[facility] Un[facility] Unavailable [place] [place] [facility] AND, AYOOB AND Unavailable Unavailable BENSADOUN NUVIA, Unavailable Unavailable BENSADOUN NUVIA BESSON KAMALA, BESSON Unavailable Unavailable KAMALA SOHEILA DEENA, Unavailable Unavailable SOHEILA DEENA [facility] Unavailable Unavailable SERVICE, [facility] Unavailable Unavailable SERVICE, [facility] CAMILLE KET, CAMILLE KET Unavailable Unavailable GRZEGORZ PSYCHOLOGIST SOCIAL, GRZEGORZ Unavailable Unavailable PSYCHOLOGIST SOCIAL TITI JAG, TITI Unavailable Unavailable FAUSTINO MCDOWELL, [...] NAN JESSICA VENUS, JESSICA Unavailable Unavailable VENUS [facility] Unavailable Unavailable [facility]PITA, [facility] Unavailable [facility], [facility] Unavailable Unavailable [facility] Unavailable Unavailable INC, [facility] Unavailable [facility]available HOSPITAL P, [facility] DUBOIS KAMALA, DUBOIS KAMALA Unavailable Unavailable RENA, MARIXA G, RENA, Unavailable Unavailable MARIXA G [facility] Unavailable [facility] HARLEY OSCAR, Unavailable Unavailable [...] Unavailable HOLDINGS, [facility] Unavailable Unavailable [facility], [facility], Unavailable Unavailable [facility] JUAN KAMALA, Unavailable Unavailable JUAN KAMALA TONO MARTINEZ, Unavailable Unavailable TONO MARTINEZ MARION, HAYWOOD Unavailable Unavailable MARION JESICA JAM, JESICA JAM Unavailable Unavailable LUKINS TIERRA, LUKINS Unavailable Unavailable TIERRA [facility] Unavailable Unavailable SERVICES, [facility] MAKSIM II, NESHA A, Unavailable [...] Unavailable SADIE ORELLANA TALJUANCHO Unavailable Unavailable [facility], Unavailable Unavailable [facility] Unavailable Unavailable [facility], [facility] GERALD MINA, Unavailable Unavailable ALEJO [...] OBSTRUCTION MEDICAL NEC EQUIPME 515 POSTINFLAMM 03-19-2013 [facility] PULMONARY [facility] FIBROSIS 7245 UNSPECIFIED 03-19-2013 [facility] 14460 OTHER 03-19-2013 [facility] [place] [address] OBSTRUCTIVE 03-10-2013 [facility] MEDICAL EQUIPME 13219 OTHER 03-07-2013 [place] DISEASES OF [facility] LUNG NOT INC ELSEWHERE CLASSIFIED 7242 LUMBAGO 03-06-2013 [facility] INC V571 OTHER 03-06-2013 [facility] THERAPY INC 70951 OTHER 03-01-2013 [place] [facility] CONDITIONS [facility] OF BRAIN F[facility] 7140 RHEUMATOID 03-01-2013 [place] [facility] ARTHRITIS SERV [facility] 7840 HEADACHE 03-01-2013 [facility] 86708 DIARRHEA 03-01-2013 [facility] 7930 NONSPECIFIC 03-01-2013 [place] [facility] ABN FNDNG SERV RAD & OTH FOUNDATIO EXM SKULL & HEAD E8889 UNSPECIFIED 03-01-2013 [facility] FALL [facility] 58149 OTHER 02-28-2013 [place] [facility] CHRONIC [facility] PAIN F[facility] 4019 UNSPECIFIED 02-28-2013 [place] [facility] ESSENTIAL SERV HYPERTENSIO FOUNDATIO N 44332 FEVER 02-28-2013 [place] [facility] UNSPECIFIED SERV [facility] 85753 OTHER 02-28-2013 [place] [facility] NONSPECIFIC SERV ABNORMAL [facility] FINDING OF LUNG FIELD 412 OLD 02-27-2013 [facility] INFARCTION 74522 CORONARY 02-27-2013 [facility] OSIS [place] CORONARY ARTERY 4829 UNSPECIFIED 02-27-2013 [facility] PNEUMONIA SERVICE 5184 UNSPECIFIED 02-27-2013 [facility] EDEMA OF FOUNDATIO LUNG 5849 ACUTE 02-27-2013 [facility] FAILURE UNSPECIFIED 10364 RHEUMATOID 02-27-2013 [facility] V4361 SHOULDER 02-27-2013 [facility] REPLACEMENT FOUNDAT[facility] BY OTHER MEANS V462 DEPENDENCE 02-27-2013 [facility] FOR [facility]PPLE[facility] L OXYGEN 19053 OBSTRUCTIVE 02-26-2013 [facility] BRONCHITIS [facility] P WITH EXACERBATIO N V5869 LONG-TERM 02-20-2013 [facility] USE OF [place] OTHER MEDICATIONS V6751 F/U EXAM 02-20-2013 [facility] FOLLOW CMPL [place] [facility] W/HIGH-RISK MED NEC 58919 COR 02-12-2013 [facility] UNSPEC TYPE VESSEL TAKOTNA/RAUL T 4940 BRONCHIECTA 01-31-2013 [place] [facility] SIS WITHOUT SERV ACUTE FOUNDATIO EXACERBATIO N 15328 IDIOPATHIC 01-31-2013 [facility] FIBROSIS SERVICES 7856 ENLARGEMENT 01-31-2013 [facility] LYMPH SERV NODES FOUNDATIO 31146 SHORTNESS 01-31-2013 [facility] BREATH SERV F[facility]AT[facility] 55592 OTHER 01-31-2013 [facility] RESPIRATORY AMBULANCE SERVICE COMPLICATIO NS 0529 VARICELLA 01-06-2013 A Candice PINZON MD PSC MENTION OF COMPLICATIO N 7862 COUGH 01-06-2013 A Candice COLBERT MD PSC 4660 ACUTE 11-06-2012 A Candice COLBERT BRONCHITIS PSC V5812 ENCOUNTER 09-25-2012 [facility] [place] TIC IMMUNOTHERA PY 2859 UNSPECIFIED 08-31-2012 [facility] 4841 PNEUMONIA 08-31-2012 [facility] IN [facility] CYTOMEGALIC FOUNDATIO INCLUSION DISEASE 5168 OTH SPEC 08-31-2012 [facility] ALVEOL&DEONNA SERV ETOALVEOL FOUNDATIO PNEUMONOPAT HIES 18061 NAUSEA WITH 08-02-2012 [place] [facility] VOMIT[place] [facility] V1209 PERSONAL HX 08-02-2012 [facility] INFECTIOUS& FOUNDATIO PARASITIC DISEASE 2724 OTHER AND 07-31-2012 [facility] HYPERLIPIDE ALEKSANDAR 5589 OTH&UNSPEC 07-31-2012 [place] [facility] NONINFECTIO SERV US F[facility]IO GASTROENTER ITIS&COLITI S 25808 VOMITING 07-31-[address] [facility] INTER 33949 ABDOMINAL 07-31-2012 [facility] PAIN, SERV EPIGASTRIC FOUNDATIO 12018 SYSTEMIC 07-31-2012 [facility] RESPONSE SYNDROME UNSPEC V1269 PERSONAL 07-31-2012 [place] [facility] H[facility] OTHER FOUNDATIO DISEASES RESPIRATORY SYS 514 PULMONARY 07-03-2012 [facility] [place] CONGESTION RADIOLOGY AND HYPOSTASIS 7295 PAIN IN 07-03-2012 JERRI ESPERANZA SOFT TISSUES OF LIMB 7823 EDEMA 07-03-2012 JER[facility] ESPERANZA 5119 UNSPECIFIED 07-01-2012 [facility] [place] PLEURAL RADIOLOGY EFFUSION 43220 OTHER 06-20-2012 [place] [facility] DISEASES OF SERV NASAL FOUNDATIO CAVITY AND SINUSES 5121 IATROGENIC 06-16-2012 [place] [facility] PNEUMOTHROA SERV X FOUNDAT[facility] 24938 ACUTE AND 06-16-2012 [place] [facility] CHRON[facility] RESPIRATORY FOUNDATIO FAILURE 88489 SEPTIC 06-16-2012 [place] [facility] SHOCK SERV [facility] 0785 CYTOMEGALOV 06-15-2012 [facility] DISEASE THE B 03133 CHEST PAIN 06-15-2012 P[facility]IVE UNSPECIFIED CARE CTR OF THE B 7850 UNSPECIFIED 06-11-2012 [place] [facility] TACHYCARDIA F[facility]AT[facility] 4279 UNSPECIFIED 05-17-2012 [facility] CARDIAC SERV DYSRHYTHMIA FOUNDATIO 81999 ACUTE 05-17-2012 [place] [facility]ATORY SERV FAILURE FOUNDATIO 31529 OTHER 04-24-2012 [facility] BRUNILDA SEPTICEMIA 1124 CANDIDIASIS 04-24-2012 [facility] 5070 PNEUMONITIS 04-24-2012 [facility] INHALATION OF FOOD OR VOMITUS 5100 EMPYEMA 04-24-2012 [facility] FISTULA 5183 PULMONARY 04-22-2012 [facility] MEDICAL A IMAGING ASS 79894 REFLUX 08-03-2011 [facility] ESOPHAGITIS KALYAN 15466 OTHER 08-03-2011 [facility] SYMPTOMS [facility] INVOLVING DIGESTIVE SYSTEM OTHER 490 BRONCHITIS 07-13-2010 [facility] NOT K[place]AN SPECIFIED ACUTE OR CHRONIC 07442 ASTHMA, 07-13-2010 [facility] UNSPECIFIED KALYAN , UNSPECIFIED STATUS 03737 PAIN IN 07-08-2010 [facility] ANKLE AND FOOT 37205 DISORDER OF 07-08-2010 [facility] BONE AND SERV CARTILAGE FOUNDATIO UNSPECIFIED V454 ARTHRODESIS 07-08-2010 [place] [facility] STATUS [facility] V5489 OTHER 07-08-2010 [facility] AFTERCARE V5409 OTH 06-17-2010 [facility] AFTER[facility] SERV INVOLVING FOUNDATIO INTERNAL FIXATION DEVICE V6700 FOLLOW-UP 06-01-2010 [place] [facility] EXAMINATION SERV FOLLOWING FOUNDATIO UNSPEC SURGERY 26147 PRIMARY 05-12-2010 [facility] LOCALIZED SERV OSTEOARTHRO FOUNDATIO SIS ANKLE AND FOOT 39247 PAIN IN 05-12-2010 [place] [facility] JOINT, SERV LOWER LEG FOUNDATIO V0481 NEED 05-12-2010 [facility] C VACCINATION &INOCULATIO N FLU V5849 OTHER 05-12-2010 [place] [facility] SPECIFIED SERV AFTERCARE FOUNDATIO FOLLOWING SURGERY 4659 ACUTE URIS 04-17-2010 [facility] OF K[place]YAN UNSPECIFIED SITE 62074 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 [place] [facility] RHEUMATISM SERV ANKLE AND FOUNDATIO FOOT 25185 PAIN IN 04-02-2010 [facility] JOINT, AMERIC UPPER ARM HOLDING 52357 OBST 03-12-2010 [facility] P W/ACUTE BRONCHITIS 16618 PAINFUL 03-12-2010 [facility] 27272 UNSPECIFIED 05-20-2009 GER[facility] BANERJEE ARTHROPATHY SITE UNSPECIFIED 4011 ESSENTIAL 05-09-2009 [facility] N, BENIGN PSC 74973 OTHER CHEST 05-09-2009 [facility] PAIN GEREMIAS V7651 SPECIAL 05-09-2009 [facility] BANERJEE FOR MALIGNANT NEOPLASMS COLON 7808 GENERALIZED 05-05-2009 [facility] BANERJEE HYPERHIDROS IS 5960 BLADDER 03-18-2009 [facility] [place] INC OBSTRUCTION 2720 PURE 03-17-2009 [facility] HYPERCHOLES GEREMIAS TEROLEMIA 96304 ESOPHAGEAL 03-17-2009 [facility] REFLUX GEREMIAS 99275 PRIMARY 03-17-2009 [facility] LOCALIZED GEREMIAS OSTEOARTHRO SIS OTH SPEC SITES 20394 OTH [facility] 11-26-2008 [facility] INT ORTHOPEDIC DEVC IMPL&GFT 78998 OT COMPS 11-26-2008 [place] [facility] DUE OTH SERV INTRL FOUNDATIO ORTHOPED DEVICE IMPL&GFT 7271 BUNION 11-11-2008 [facility] 99905 NONSPECIFIC 11-11-2008 [facility] ELECTROCARD IOGRAM V4589 OTHER 11-11-2008 [facility] L STATUS OTHER 67336 EFFUSION OF 09-19-2008 [facility] LOWER LEG H JOINT ORTHOPAEDIC SURGEONS PSC 48613 VILLONODULA 09-19-2008 [facility] R H SYNOVITIS, ORTHOPAEDIC LOWER LEG SURGEONS PSC 5185 PULMONARY 05-16-2008 [facility] INSUFFICIEN [facility]ERGENCY CY FOLLOW SERVICES [facility] SURGERY 87673 UNSPECIFIED 05-15-2008 [place] [facility] [place]OV[place] [address] EXTRINSIC 11-02-2007 [facility] DOSE ASTHMA, PHARMACY UNSPECIFIED 24833 OSTEOARTHRO 07-13-2007 MAKSIM II, SIS UNSPEC NESHA A WHETHER GEN/LOC ANK&FOOT 09146 TENOSYNOVIT 07-13-2007 MAKSIM II, IS OF FOOT [...] SerPl-mCnc (09-22-2016 14:15) NT-proB 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 017 pg/mL ed SerPl-m 14:15 Cnc BASIC [...] RENT; EQUIPME EQUIPME FLWMTR HUMIDFR&M ASK SPMTRY 51123 [place] [facility] W/VC 3 MEDICAL NUVIA EXPIRATOR SERV Y RACHEL FOUNDATIO W/WO MXML VOL VNTJ PULMONARY 65578 [facility] 3 Y Y TESTING [facility] SIMPLE O2 CONC 1 E1390 [facility] VIERA [place] 3 HOME HOME 85%/>02 MEDICAL MEDICAL CONC AT EQUIPME EQUIPME PRSC FLW RATE NEBULIZER E0570 [facility] VIERA WITH 3 HOME HOME COMPRESSO MEDICAL MEDICAL R EQUIPME EQUIPME PRTBLE E0431 [facility] VIERA GASEOUS 3 HOME HOME O2 SYS MEDICAL MEDICAL RENT; EQUIPME EQUIPME FLWMTR HUMIDFR&M ASK THERAPEUT 91211 [place] [facility] [place] P[place] 1/> 3 [facility] AREAS INC INC EACH 15 MIN EXERCISES E-STIM G0283 [place] [facility] 1/> AREAS 3 [facility] WND CARE PART TX PLAN E-STIM G0283 [place] [facility] 1/> AREAS 3 [facility] OTH THAN INC INC WND CARE PART TX PLAN THERAPEUT 61487 [place] [facility] [place] PX 1/> 3 [facility] AREAS INC INC EACH 15 MIN EXERCISES APPLICATI 90060 [place] [facility] ON 3 [facility] MODALITY INC INC 1/> AREAS HOT/COLD PACKS CONTINUOU E0601 [facility] VIERA S 3 HOME HOME POSITIVE MEDICAL MEDICAL AIRWAY EQUIPME EQUIPME PRESSURE DEVICE THERAPEUT 54156 [place] [facility] [place] 1/> 3 [facility] AREAS INC INC EACH 15 MIN EXERCISES E-STIM G0283 [place] STEVENSON 1/> AREAS 3 [facility] OTH THAN INC INC WND CARE PART TX PLAN SMR PRIM 69057 [place] [facility] SRC 3 [facility] GRAM/GIEM INC INC SA STAIN BCT FUNGI/LEONIDES L SPUTUM 15396 [place] [facility] OBTAINING [address] [facility] SPEC INC INC AEROSOL INDUCED TX SPX CUL BACT 04800 [place] XCPT [address] [facility] URINE INC INC BLOOD/STO OL AEROBIC ISOL THERAPEUT 14740 [place] PX 1/> [address] [facility] AREAS INC INC EACH 15 MIN EXERCISES E-STIM G0283 [place] 1/> AREAS 3 [facility] OTH THAN INC INC WND CARE PART TX PLAN SBSQ 85603 [facility] 3 MEDICAL PRE CARE/DAY SERV 25 FOUNDATIO MINUTES RADIOLOGI 60501 [place] DUBO[place] KAMALA C EXAM 3 MEDICAL CHEST 2 SERV VIEWS FOUNDATIO FRONTAL&[place] [address] [place] ARINA MCCOY HEAD/BRAI 3 MEDICAL N W/O SERV CONTRAST FOUNDATIO MATERIAL SBSQ 57931 [facility] 3 MEDICAL PRE CARE/DAY SERV 25 FOUNDATIO MINUTES RADIOLOGI 28538 [place] [facility] KAMAL[place] C EXAM 3 MEDICAL CHEST 2 SERV VIEWS FOUNDATIO FRONTAL&L ATERAL SMR PRIM 74127 [place] [facility] SRC 3 [facility] GRAM/GIEM INC INC SA STAIN BCT FUNGI/LEONIDES L SUSCEPTIB 42814 [place] [facility] LTY STDY 3 [facility] ANTIMICRB INC INC IAL MICRO/AGA R DILUTJ AMB A0427 [facility] SERVICE 3 AMBULANCE AMBULANCE ALS SERVICE SERVICE EMERGENCY TRANSPORT LEVEL 1 IV [address]192 [place] [facility] INFUSION 3 [facility] THERAPY INC INC PROPHYLAX IS/DX EA HOUR INITIAL 92722 [facility] 3 MEDICAL PRE CARE/DAY SERV 70 FOUNDATIO MINUTES RADIOLOGI 67322 [place] AYOOB AND C 3 MEDICAL EXAMINATI SERV ON CHEST FOUNDATIO [place] FRONTAL CUL BACT 44609 [place] [facility] XCPT 3 [facility] URINE INC INC BLOOD/[place] [address] [place] [facility] INFUSION 3 [facility] THER INC INC PROPH ADDL SEQUENTIA L TO 1 HR IAADI 99095 [place] [facility] INFLUENZA 3 [facility] B VIRUS INC INC IAADI 18884 [place] [facility] INFFLUENZ 3 [facility] A A VIRUS INC INC CUL BACT 51637 [place] [facility] AEROBIC 3 [facility] ADDL INC [place] [address] [place] [facility] INFUSION 3 [facility] THERAPY/P INC INC ROPHYLAXI S /DX 1ST TO 1 HR GROUND A0425 [facility] AM[facility]ULANCE PER SERVICE SERVICE STATUTE MILE E-STIM G0283 [place] [facility] 1/> AREAS 3 [facility] OTH THAN INC INC WND CARE PART TX PLAN BASIC 22867 [place] [facility] METABOLIC 3 [facility] PANEL INC INC CALCIUM TOTAL CREATINE 70063 [place] [facility] KINASE MB 3 [facility] FRACTION INC INC ONLY RADIOLOGI 67865 [facility] [facility] C 3 [facility] EXAMINATI INC INC ON CHEST [place] FRONTAL PHYSICAL 74341 [place] [facility] THERAPY 3 [facility] EVALUATIO INC INC N THERAPEUT 75236 [place] [facility] IC PX 1/> 3 [facility] AREAS INC INC EACH 15 MIN EXERCISES BLOOD 15995 [place] [facility] GASES ANY [address] [facility] INC INC COMBINATI ON PH PCO2 PO2 CO2 HCO3 ECG 27842 [place] [facility] ROUTINE [address] [facility] ECG INC INC W/LEAST 12 LDS TRCG ONLY W/O I&R CREATINE 06385 [place] KINASE [address] [facility] TOTAL INC INC CRITICAL 41967 [place] [facility] CARE [address] [facility] ILL/INJUR INC INC ED PATIENT INIT 30-74 MIN ECG 86215 [place] BESCARON ROUTINE 3 [facility] W/LEAST P 12 LDS I&R ONLY CULTURE 57423 [place] BACTERIAL 3 [facility] BLOOD INC INC AEROBIC W/[place] [address] [place] [facility] TROPONIN 3 [facility] QUANTITAT INC INC COURTNEY BLOOD 32969 [place] COUNT 3 [facility] COMPLETE INC INC AUTO&AUTO DIFRNTL WBC BLOOD 47515 [facility] COUNT 3 [facility] [employer]INGS AUTOMATED C-REACTIV 81115 [facility] E PROTEIN 3 [facility] COLLECTIO 73012 [facility] N VENOUS 3 [facility] [place] BLOOD [facility] HOLDINGS VENIPUNCT URE COMPREHEN 52877 [facility] SIVE 3 [place] [...] COMPRESSO MEDICAL MEDICAL R EQUIPME EQUIPME SPMTRY 78196 [facility] W/VC 3 [facility] Y RACHEL W/WO MXML VOL VNTJ PLETHYSMO 56342 [facility] GRAPHY 3 Y [facility] VOLUMES W/WO AIRWAY RESIST CT THORAX 84087 [facility] W/O 3 Y Y CONTRAST [facility]OSP[facility] MATERIAL GASES 25342 [facility] BLOOD PH 3 Y Y DIRECT [facility] ANSHU XCPT PULSE OXIMITRY PULMONARY 58720 [facility] STRESS 3 Y [place] [address] TARAS OBRIEN KET DIFFUSING 3 MEDICAL CAPACITY SERV FOUNDATIO ARTERIAL 46909 [facility] PUNCTURE 3 Y [facility] L BLOOD DX CONTINUOU E0601 AYLIN VIERA S 3 HOME HOME POSITIVE MEDICAL MEDICAL AIRWAY EQUIPME EQUIPME PRESSURE DEVICE [facility] [address] [place] SEETHARMR DISCHARGE 3 MEDICAL AJU HAZEL DAY SERV MANAGEMEN FOUNDATIO T 30 MIN/< THER 05159 [place] [facility] PROPH/DX [address] [facility] NJX IV INC INC PUSH SINGLE/1S T SBST/DRUG ECG 22115 [facility] ROUTINE 3 EMERGENCY ECG SERVICES W/LEAST 12 LDS I&R ONLY ECG 77648 [place] [facility] ROUTINE [address] [facility] ECG INC INC W/LEAST 12 LDS TRCG ONLY W/O I&R BLOOD 33297 [place] [facility] COUNT 3 [facility] COMPLETE INC INC AUTO&AUTO DIFRNTL WBC CULTURE 75516 [place] [facility] BACTERIAL [address] [facility] BLOOD INC INC AEROBIC W/ID ISOLATES SUSCEPTIB 95127 [place] [facility] LTY STDY [address] [facility] ANTIMICRB INC INC IAL MICRO/AGA R DILUTJ SMR PRIM 04478 [place] [facility] SRC [address] [facility] GRAM/GIEM INC INC SA STAIN BCT FUNGI/[place] [address] [facility]ARAS JESICA ONTIVEROS ANGIOGRAP 3 MEDICAL HY CHEST SERV W/CONTRAS FOUNDATIO T/NONCONT RAST RADIOLOGI 83759 [place] C 3 [facility] EXAMINATI INC INC ON CHEST [place] FRONTAL CUL BACT 91631 [place] [facility] XCPT [address] [facility] URINE INC INC BLOOD/STO OL AEROBIC ISOL RADIOLOGI 34714 [place] [facility] C EXAM 3 [facility] CHEST 2 INC INC VIEWS FRONTAL&L ATERAL CUL BACT 85901 [place] [facility] AEROBIC 3 [facility] ADDL INC INC METHS DEFINITIV E EA ISOL COMPREHEN 53303 [place] [facility] SIVE 3 [facility] METABOLIC INC INC PANEL GROUND A0425 [facility] MILEAGE 3 AMBULANCE AMBULANCE PER SERVICE SERVICE STATUTE MILE AMBULANCE A0429 [facility] SERVICE 3 AMBULANCE AMBULANCE BLS SERVICE SERVICE EMERGENCY TRANSPORT PRESSURIZ 55406 [place] ED/NONPRE 3 [facility] SSURIZED INC INC INHALATIO N TREATMENT PHRM Q0513 YOUR YOUR DISPENSIN 3 PHARMACY PHARMACY G FEE charity: water INHALATIO N RX; PER 30 DAYS ADMN SET A7003 YOUR YOUR SM VOL 3 PHARMACY PHARMACY NONFILTR [employer] [facility] PNEUMAT NEBULIZR DISPBL ALBUTEROL J7620 YOUR YOUR TO 2.5 3 PHARMACY PHARMACY MG & charity: water IPRATROPI UM BROM TO 0.5 MG NEBULIZER E0570 AYLIN VIERA WITH 3 HOME HOME COMPRESSO MEDICAL MEDICAL R EQUIPME EQUIPME PRTBLE E0431 AYLIN VIERA GASEOUS 3 HOME HOME O2 SYS MEDICAL MEDICAL RENT; EQUIPME EQUIPME FLWMTR HUMIDFR&M ASK O2 CONC 1 E1390 AYLIN VIERA DEL PORT 3 HOME HOME 85%/>02 MEDICAL MEDICAL CONC AT EQUIPME EQUIPME PRSC FLW RATE RADIOLOGI 87239 [place] [facility] C EXAM 3 [facility] CHEST 2 INC INC VIEWS FRONTAL&L ATERAL CONTINUOU E0601 AYLIN VIERA S 3 HOME HOME POSITIVE MEDICAL MEDICAL AIRWAY EQUIPME EQUIPME PRESSURE DEVICE COMPREHEN 06273 [place] [facility] SIVE 3 [facility] [place] [address] [place] [facility] HEAD/BRAI 3 [facility] N W/O INC INC CONTRAST MATERIAL CREATINE 33940 V[place] [facility] KINASE MB 3 [facility] [place] [address] [place] [facility] TROPONIN [address] [facility] QUANTITAT INC INC COURTNEY BLOOD 59802 [place] [facility] COUNT [address] [facility] COMPLETE INC INC AUTO&AUTO DIFRNTL WBC ECG 04934 [place] [facility] ROUTINE 3 [facility] ECG INC INC W/LEAST 12 LDS TRCG ONLY W/O I&R 3D 54470 [place] [facility] RENDERING [address] [facility] W/INTERP INC INC & POSTPROCE SS SUPERVISI ON CREATINE 38044 [place] [facility] KINASE 3 [facility] TOTAL INC INC RHYTHM 31242 [place] [facility] ECG 1-3 3 [facility] LEADS INC INC TRACING ONLY W/O I&R ECG 22602 [facility] [place] [facility] EMERGENCY ECG SERVICES [...] PER SESS TO 2 PER DAY BLOOD 15791 [facility] COUNT 3 [facility] [employer] [facility] AUTOMATED C-REACTIV 11289 [facility] E PROTEIN 3 [facility] [facility] COLLECTIO 24152 [facility] N VENOUS 3 [facility] VENIPUNCT URE COMPREHEN 81052 [facility] SIVE 3 AMERIC [...] PER SESS TO 2 PER DAY POLYSOM 63868 [place] 6/>YRS 3 [facility] MEM [...] COMPRESSO MEDICAL MEDICAL R EQUIPME EQUIPME GAS 92717 [place] DILUT/WAS 3 [facility] HOUT LUNG INC INC VOL W/WO DISTRIB VENT&V O2 CONC 1 E1390 AYILNERNESTO VIERA DEL PORT 3 HOME HOME 85%/>02 MEDICAL MEDICAL CONC AT EQUIPME EQUIPME PRS FLW RATE BRNCDILAT 06600 [place] RSPSE 3 [facility] SPMTRY INC INC PRE&POST- BRNCDILAT ADMN PRTBLE E0431 AYLIN ABARCARELL GASEOUS 3 HOME HOME O2 SYS MEDICAL MEDICAL RENT; EQUIPME EQUIPME FLWMTR HUMIDFR&M ASK BLOOD 41742 [facility] COUNT 3 Y Y COMPLETE [facility] AUTO&AUTO DIFRNTL WBC RHEUMATOI 06079 [facility] D FACTOR 3 Y Y QUANTITAT [facility] COURTNEY PREALBUMI 07720 [facility] N 3 Y Y [facility] IRON 08236 [facility] BINDING 3 Y Y CAPACITY [facility] CYANOCOBA 44899 [facility] CLARISSE 3 Y Y VITAMIN [facility] B-[place] [address] [facility] FOLIC 3 Y Y ACID RBC [facility] RADIOLOGI 93173 [place] C EXAM 3 MEDICAL CHEST 2 SERV VIEWS FOUNDATIO FRONTAL&L ATERAL COMPREHEN 54296 [facility] SIVE 3 Y Y METABOLIC [facility] PANEL ANTINUCLE 50758 [facility] LAB HEIDI AR 3 [facility] [place] FLUORESCE 62134 [facility] NT 3 Y Y NONNFCT [facility] AGT ANTB SCREEN EA ANTIBODY COLLECTIO 77734 [facility] N VENOUS 3 Y Y BLOOD [facility] VENIPUNCT URE STANDARD K0001 AYLIN VIERA WHEELCHAI 3 HOME HOME R MEDICAL MEDICAL EQUIPME EQUIPME NEBULIZER E0570 AYLIN VIERA WITH 3 HOME HOME COMPRESSO MEDICAL MEDICAL R EQUIPME EQUIPME O2 CONC 1 E1390 AYLIN ABARCARELL DEL [place] 3 HOME HOME 85%/>02 MEDICAL MEDICAL CONC AT EQUIPME EQUIPME [facility] FLW RATE PRTBLE E0431 AYLIN VIERA GASEOUS 3 HOME HOME O2 SYS MEDICAL MEDICAL RENT; EQUIPME EQUIPME FLWMTR HUMIDFR&M ASK POLYSOM 16462 [place] 6/>YRS 3 [facility] SLEEP INC INC W/CPAP 4/> [facility] [address] [facility] DISCHARGE 3 MEDICAL JAG DAY SERV MANAGEMEN FOUNDATIO T 30 MIN/< SBSQ 67161 [place] [facility] 3 MEDICAL JAG CARE/DAY SERV 25 FOUNDATIO MINUTES RADEX ABD 62296 [place] DISANTIS COMPL 3 MEDICAL SIDDHARTHA AQT ABD SERV W/S/E/D FOUNDATIO VIEWS 1 VIEW CH RADEX ABD 44837 [place] JESICA JAM COMPL 3 MEDICAL AQT ABD SERV W/S/E/D [place] [address] [place] SOHEILA ABDOMINAL 3 MEDICAL DEENA REAL SERV TIME FOUNDATIO W/IMAGE LIMITED INITIAL 06517 [place] [facility] 3 MEDICAL MARION CARE/DAY SERV 70 [...] MEDICAL ADJUSTABL EQUIPME EQUIPME E/FIXED HEIGHT RADIOLOGI 76158 [facility] [place] KOSTELIC C EXAM 3 RADIOLOGY MONTSERRAT CHEST 2 VIEWS FRONTAL&L ATERAL DUP-SCAN 74963 JERRI JERRI XTR VEINS 3 ESPERANZA ESPERANZA COMPLETE BILATERAL STUDY RADIOLOGI 88375 [facility] [place] NOEL C EXAM 3 RADIOLOGY GODFREY CHEST 2 VIEWS FRONTAL&L ATERAL MRI BRAIN 67800 [place] LUKINS BRAIN 3 MEDICAL TIERRA STEM W/O SERV CONTRAST FOUNDATIO MATERIAL SBSQ 26534 [facility] 3 E CARE CARE/DAY CTR OF 15 THE B MINUTES BRNCC 97991 [place] [facility] 3 MEDICAL OSCAR FLUOR SERV GDNCE DX FOUNDATIO W/CELL WASHG SPX SBSQ 18397 [facility] 3 E CARE CARE/DAY CTR OF 25 THE B MINUTES CLOSED 3324 [facility] 3 Y Y [facility] VENOUS 3893 [facility] CATHETER 3 Y Y [facility] NOT ELSEWHERE CLASSIFIE D ECG 64087 Snappli ROUTINE 3 MEDICAL ECG SERV W/LEAST FOUNDATIO 12 LDS I&R ONLY ECG 63401 TARAS HU ROUTINE 3 MEDICAL NAN ECG SERV W/LEAST FOUNDATIO 12 LDS I&R ONLY CONTINUOU E0601 AYLIN VIERA S 2 HOME HOME POSITIVE MEDICAL MEDICAL AIRWAY EQUIPME EQUIPME PRESSURE DEVICE STANDARD K0001 AYLIN VIERA WHEELCHAI 2 HOME HOME R MEDICAL MEDICAL EQUIPME EQUIPME THORACOSC 3320 [facility] LUNG 2 Y Y BIOPSY [facility] HOSPITAL ECG 01095 [employer] RxO CHI ROUTINE 2 MEDICAL ECG SERV W/LEAST FOUNDATIO 12 LDS I&R ONLY ECG 48989 TARAS MOE CHET ROUTINE 2 MEDICAL ECG SERV W/LEAST FOUNDATIO 12 LDS I&R ONLY ECG 50868 [place] ROQUE CHI ROUTINE 2 MEDICAL ECG SERV W/LEAST FOUNDATIO 12 LDS I&R ONLY ECG 75087 TARAS HU ROUTINE 2 MEDICAL NAN ECG SERV W/LEAST FOUNDATIO 12 LDS I&R ONLY INSERTION 9604 [facility] OF 2 Y Y [facility] EAL TUBE CONT 9671 [facility] 2 Y Y [facility] < 96 CONSECUTI VE HOURS RADIOLOGI 45639 [facility] DAWNA C 2 MEDICAL TIERRA EXAMINATI IMAGING ON CHEST ASS SINGLE VIEW FRONTAL RADIOLOGI 50340 [facility] DAWNA C 2 MEDICAL TIERRA EXAMINATI IMAGING ON CHEST ASS SINGLE VIEW FRONTAL ADMN SET A7003 YOUR YOUR SM VOL 2 PHARMACY PHARMACY NONFILTR [employer] [facility] [employer] PNEUMAT NEBULIZR DISPBL PHARM G0333 YOUR YOUR DISPEN 2 PHARMACY PHARMACY FEE INHAL [facility] RX; INITIAL 30-DAY SUPPLY ALBUTEROL J7620 YOUR YOUR TO 2.5 2 PHARMACY PHARMACY [employer] IPRATROPI UM BROM TO 0.5 MG ECG 84563 POPPY KEENE ROUTINE 2 EMERGENCY VENUS ECG SERVICES W/LEAST 12 LDS I&R ONLY RADIOLOGI 60139 [facility] DAWNA C EXAM 2 MEDICAL TIERRA CHEST 2 IMAGING VIEWS ASS FRONTAL&L ATERAL SMR PRIM 71290 [facility] SRC CPLX 2 N N SPEC COMMUNITY COMMUNITY STAIN HOSPITA HOSPITA OVA&CHAD ITS SMR PRIM 76282 [facility] SRC 2 N N GRAM/GIEM COMMUNITY COMMUNITY SA STAIN HOSPITA HOSPITA BCT FUNGI/LEONIDES L OVA&CHAD 10299 [facility] ITES 2 N N DIRECT COMMUNITY COMMUNITY SMEARS HOSPITA HOSPITA CONCENTRA TION & ID BLOOD 88638 [facility] OCCULT 2 N N PEROXIDAS COMMUNITY COMMUNITY E ACTV HOSPITA HOSPITA QUAL FECES 1-3 SPEC BLOOD 07014 CULBERTSO CULBERTSO OCCULT 2 N KALYAN N KALYAN PEROXIDAS E ACTV QUAL FECES 1 DETER BLOOD 51310 LAB [facility] LAB HEIDI COUNT 2 AMERIC [employer] COMPLETE HOLDING HOLDING AUTOMATED COMPREHEN 92778 LAB HE[facility] LAB HEIDI SIVE 2 AMERIC AMERIC METABOLIC HOLDING HOLDING PANEL C-REACTIV 41355 LAB [facility] LAB HEIDI E PROTEIN 2 [employer]IC [employer]ING HOLDING COLLECTIO 30846 LAB [facility] LAB HEIDI N VENOUS 2 AMERIC AMERIC BLOOD HOLDING HOLDING VENIPUNCT URE COLLECTIO 53104 LAB HE[facility] LAB HEIDI N VENOUS 1 AMERIC AMERIC BLOOD HOLDING HOLDING VENIPUNCT URE C-REACTIV 44753 LAB [facility] LAB HEIDI E PROTEIN 1 [employer]ING COMPREHEN 97011 LAB [facility] LAB HEIDI SIVE 1 AMERIC [employer] METABOLIC HOLDING HOLDING PANEL BLOOD 09561 LAB HE[facility]I LAB HEIDI COUNT 1 AMERIC [employer] COMPLETE HOLDING HOLDING AUTOMATED WALKING L4360 [employer] COO, PCA Audit BOOT 1 PNEUMATC &/ VACUUM PREFAB CUSTM FIT RADEX 25093 [place] EMELIA JAM ANKLE 1 MEDICAL COMPLETE SERV MINIMUM 3 FOUNDATIO VIEWS TRANSFERA 73730 [facility] SE 1 [employer] ASPARTATE AMINO AST SGOT COLLECTIO 98903 [facility] N VENOUS 1 [employer] BLOOD VENIPUNCT URE LIPID 22698 [facility] PANEL 1 [employer] [facility] RADIOLOGI 90702 [place] HUMMEL C 1 MEDICAL GODFREY EXAMINATI SERV ON FOOT 2 FOUNDATIO VIEWS APPLICATI 29157 [place] ON SHORT 1 MEDICAL MEDICAL LEG CAST SERV SERV WALKING/A FOUNDATIO FOUNDATIO MBULATORY CAST Q4038 [place] JUAN SUPPLIES 1 MEDICAL KAMALA SHORT LEG SERV CAST FOUNDATIO ADULT FIBERGLAS S CAST Q4038 [place] JUAN SUPPLIES 1 MEDICAL KAMALA SHORT LEG SERV CAST FOUNDATIO ADULT FIBERGLAS S APPLICATI 55000 [place] ON SHORT 1 MEDICAL MEDICAL LEG CAST SERV SERV BELOW FOUNDATIO [facility]ATIO [facility] G0378 [facility] OBSERVATI 0 Y Y ON HOSPITAL HOSPITAL SERVICE PER HOUR PHYSICAL 92502 [facility] THERAPY 0 Y Y EVALUATIO [facility] HOSPITAL N 54856 TARAS DUARTE GUIDANCE 0 MEDICAL JUS NEEDLE SERV PLACEMENT FOUNDATIO IMG S&I ARTHRODES 74337 [facility] IS 0 Y [facility] HOSPITAL ANESTHESI 57044 TARAS DUARTE A ON BONY 0 MEDICAL JUS PELVIS SERV FOUNDATIO BONE 12-14 [facility] GRAFT ANY 0 Y Y DONOR HOSPITAL HOSPITAL AREA MAJOR/LAR GE INJECTION 66804 TARAS UTINSCOTT 0 MEDICAL JUS ANESTHETI SERV C AGENT FOUNDATIO SCIATIC NRV SINGLE INJECTION 45960 [facility] 0 MEDICAL JUS ANESTHETI SERV C AGENT FOUNDATIO FEMORAL NERVE SINGLE FLUOROSCO 76955 [facility] PY SPX >1 0 Y [facility] PHYS/QHP TIME CUL BACT 10056 LAB HE[facility]I LAB HEIDI XCPT 0 AMERIC AMERIC URINE HOLDING HOLDING BLOOD/STO OL AEROBIC ISOL CULTURE 53525 LAB [facility]I LAB HEIDI BACTERIAL 0 AMERIC AMERIC ANY HOLDING HOLDING SOURCE ANAEROBIC ISO&ID SMR PRIM 83235 LAB [facility] LAB HEIDI SRC 0 AMERIC AMERIC GRAM/GIEM HOLDING HOLDING SA STAIN BCT FUNGI/[place] [address] [place] [facility] TROPONIN 0 [facility] QUANTITAT INC INC COURTNEY BLOOD 29219 [place] [facility] COUNT 0 [facility] COMPLETE INC INC AUTO&AUTO DIFRNTL WBC ECG 06373 [place] MARTINEZKEMIE ROUTINE [address] [facility] EMERGENCY ROOM W/LEAST P 12 LDS I&R ONLY ECG 39977 [place] COLE[facility] ROUTINE 0 [facility] ECG INC INC W/LEAST 12 LDS TRCG ONLY W/O I&R CREATINE 83765 [place] [facility] KINASE 0 [facility] TOTAL INC INC THER 76095 [place] [facility] PROPH/DX 0 [facility] NJX IV INC INC PUSH SINGLE/1S T SBST/DRUG CREATINE 42244 [place] [facility] KINASE MB 0 [facility] FRACTION INC INC ONLY BASIC 33873 [place] [facility] METABOLIC 0 [facility] PANEL INC INC CALCIUM TOTAL RADIOLOGI 01098 [facility] DAWNA C 0 MEDICAL TIERRA EXAMINATI IMAGING ON CHEST ASS SINGLE VIEW FRONTAL PRESSURIZ 55365 [place] [facility] ED/NONPRE 0 [facility] SSURIZED INC INC INHALATIO N TREATMENT [place] LOWER 48897 [place] [facility] EXTREMITY 0 [facility] W/O INC INC CONTRAST MATERIAL 3D 08285 [place] [facility] RENDERING 0 [facility] W/INTERP& POSTPROC DIFF WORK STATION DUP-SCAN 18473 [place] COLE[facility] XTR VEINS 0 [facility] UNILATERA L/LIMITED STUDY INJECTION J1040 MONICA MOSLEYO 9 N, GEREMIAS DOUGHERTY METHYLPRE DNISOLONE ACETATE 80 MG BLOOD 14850 MONICA MOSLEYO OCCULT 9 N, GEREMIAS DOUGHERTY PEROXIDAS E ACTV QUAL FECES 1 DETER CV STRS 71695 MONICA MOSLEYO TST 9 N, GEREMIAS DOUGHERTY XERS&/OR RX CONT ECG W/O I&R CV STRS 06906 [facility] TST 9 N N XERS&/OR COMMUNITY COMMUNITY RX CONT HOSPITAL HOSPITAL ECG TRCG ONLY MYOCRD 98598 [facility] CAROLAANAFINNKRISTOFERUJ STD 9 N FAMILY DHILLON EJEC FXJ PHYS PSC MYOCRD 58518 [facility] JUAN ALBERTO PRFUJ STD 9 N [facility] ALEJO WALL PHYS PSC MOTION QUAL/RENEE STD TECHNETIU A9500 [facility] TC-99M 9 N N SESTAMIBI COMMUNITY COMMUNITY DX PER HOSPITAL HOSPITAL STUDY DOSE CV STRS 35100 [facility]ERSON TST 9 N, GEREMIAS DOUGHERTY XERS&/OR RX CONT ECG I&R ONLY MYOCRD 35539 [facility] KRISTOFER AVENDANOUJ IMG 9 N FAMILY DHILLON TOMOG PHYS PSC SPECT RIPRAP 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 INC. CMPNT PER 15 MINS CULTURE 47657 LAB HEIDI LAB HEIDI BACTERIAL 9 AMERIC AMERIC ANY HOLDING HOLDING SOURCE ANAEROBIC ISO&ID CUL BACT 36298 LAB [facility] LAB HEIDI XCPT 9 AMERIC AMERIC URINE HOLDING HOLDING BLOOD/STO OL AEROBIC ISOL SMR PRIM 45450 LAB [facility] LAB HEIDI SRC 9 AMERIC AMERIC GRAM/GIEM HOLDING HOLDING SA STAIN BCT FUNGI/LEONIDES L SUSCEPTIB 76941 LAB [facility]I LAB HEIDI LTY STDY 9 AMERIC AMERIC ANTIMICRB HOLDING HOLDING IAL MICRO/AGA R DILUTJ LIPID 12659 [facility] PANEL 9 [facility] COMPREHEN 15941 [facility] SIVE 9 [facility] [place] [facility] METABOLIC PANEL COLLECTIO 58885 [facility] N VENOUS 9 [facility] [place] [address] [facility] PROSTATE 9 [facility] SPECIFIC ANTIGEN TOTAL REMOVAL 99221 [facility] IMPLANT 9 Y [facility] INJECTION J3010 [facility] FENTANYL 9 Y Y CITRATE [facility] HOSPITAL 0.1 MG FLUOROSCO 65534 [facility] PY SPX >1 9 Y Y HOUR [facility] HOSPITAL PHYS/[place] [address] [place] CIBULL, SURG 9 MEDICAL SACRAMENTO PATHOLOGY SERV GROSS FOUNDATIO EXAMINATI ON ONLY CUL BACT 96213 [facility] XCPT 9 Y Y URINE [facility] HOSPITAL BLOOD/STO OL AEROBIC ISOL INJECTION J2270 [facility] MORPHINE 9 Y Y SULFATE [facility] HOSPITAL UP TO 10 MG INJECTION J0690 [facility] 9 Y Y [facility] SODIUM 500 MG INJECTION J2175 [facility] 9 Y Y [facility] E HCL PER 100 MG RINGERS J7120 [facility] LACTATE 9 Y [facility] UP TO 1000 CC SMR PRIM 28208 [facility] SRC 9 Y Y GRAM/GIEM HOSPITAL [facility] SA STAIN BCT FUNGI/LEONIDES L BLOOD 74732 [facility] COUNT 9 Y Y COMPLETE HOSPITAL HOSPITAL AUTOMATED ECG 41077 [place] RENA, ROUTINE 9 MEDICAL MARIXA G ECG SERV W/LEAST FOUNDATIO 12 LDS I&R ONLY ECG 68324 [facility] ROUTINE 9 Y Y ECG HOSPITAL HOSPITAL W/LEAST 12 LDS TRCG ONLY W/O I&R COLLECTIO 58205 [facility] N VENOUS 9 Y Y BLOOD [facility] VENIPUNCT URE RADEX 02548 [facility] FOOT 9 Y Y [facility]PLETE [facility] MINIMUM 3 VIEWS BASIC 50715 [facility] METABOLIC 9 Y Y PANEL [facility] CALCIUM TOTAL INJ J0702 [facility] MAKSIM BETAMETHA 9 LTH II, NESHA SONE ORTHOPAED A ACETATE & IC SURGEONS PHOSPHATE PSC 3 MG ARTHROCEN 67463 [facility] MAKSIM TESIS 9 LTH II, NESHA ASPIR&/IN ORTHOPAED A J MAJOR IC JT/BURSA SURGEONS W/O US PSC COLLECTIO 98443 [facility] UNIVERS N VENOUS 9 Y Y BLOOD [facility] VENIPUNCT URE CUL BACT 62354 [facility] XCPT 9 Y Y URINE HOSPITAL [facility] BLOOD/STO OL AEROBIC ISOL CELL 41466 [facility] COUNT 9 Y [facility]PITAL FLUIDS W/DIFFERE NTIAL COUNT SMR PRIM 59953 [facility] SRC 9 Y Y GRAM/GIEM [facility] SA STAIN BCT FUNGI/LEONIDES L PWR E2365 ALLIED ALLIED WHLCHAIR 9 HOME HOME ACSS U-1 MEDICAL, MEDICAL, SEALED INC. INC. LEAD ACID BATTRY EA REP/NONRO E1340 ALLIED ALLIED UTINE 9 HOME HOME SRVC DME MEDICAL, MEDICAL, RQR SKL INC. INC. TECH LABR-15 MIN SBSQ 82735 [facility] 8 EMERGENCY N, CARE/DAY SERVICES TADARRO 25 MINUTES ASSOCIATE S ANESTH 14839 KRANTHI CARDOZO 8 [facility] REEMA Harvey ANESTHESI ARTHROSCO A PSC PIC PROC KNEE JOINT LEVEL III 85028 [place] ANN, SURG 8 MEDICAL TIM E PATHOLOGY SERV FOUNDATIO GROSS&VENUS ROSCOPIC EXAM INITIAL 14776 [facility] INPATIENT 8 EMERGENCY N, CONSULT SERVICES TADARRO NEW/ESTAB PT 110 ASSOCIATE MIN S ANES 13133 [place] HIRO, LOWER 8 ANESTHESI JENNIFER Vieira INTESTINE A GROUP PSC ENDOSCOPY DISTAL DUODENUM COLONOSCO 02662 [facility], PY FLX DX 8 [place] RICHY G W/COLLJ GASTROENT SPEC WHEN PFRMD CELL 49363 [facility] COUNT 8 Y Y MISC BODY [facility] FLUIDS W/DIFFERE NTIAL COUNT CUL BACT 51966 [facility] XCPT 8 Y Y URINE [facility] BLOOD/STO OL AEROBIC ISOL SMR PRIM 50384 [facility] SRC 8 Y Y GRAM/GIEM [facility] SA STAIN BCT FUNGI/LEONIDES L SMALL A7004 [...] NONFILTR PHARMACY PHARMACY PNEUMATIC NEBULIZER DISPBL DUP-SCAN 44647 [facility] LXTR 8 N N ART/ARTL [facility] COMPL BI STUDY ALBUTEROL J7620 PULMO [...] NONFILTR PHARMACY PHARMACY PNEUMAT NEBULIZR DISPBL RADIOLOGI 65578 MAKSIM MAKSMI C 8 II, NESHA II, NESHA EXAMINATI A A ON KNEE 1/2 VIEWS RADIOLOGI 41385 MAKSIM MAKSIM C EXAM 8 II, NESHA II, NESHA KNEE A A COMPLETE 4/MORE VIEWS ALBUTEROL J7620 PULMO PULMO TO 2.5 8 DOSE DOSE MG & PHARMACY PHARMACY IPRATROPI UM BROM TO 0.5 MG PHRM Q0513 PULMO PULMO DISPENSIN 8 DOSE DOSE G FEE PHARMACY PHARMACY INHALATIO N RX; PER 30 DAYS Encounters Encounter Start End Date Code Location Performer Type Date [facility] [place] [address] 3 Y [facility] [place] - 3 3 [facility] 3 3 [facility] UN[facility]ERSIT - 3 3 Y INPATIENT HOSPITAL EMERGENCY 23457 TARAS SALAZAR DEPT 3 3 MEDICAL JORGE VISIT SERV HIGH FOUNDATIO SEVERITY& THREAT [facility] Emergency NICOLÁS Keene MD (ER) 3 22:37 3 00:59 [facility] [place] - 3 3 [facility] OUTPATIEN INC T OFFICE 17070 [facility] OUTPATIEN 3 3 CENTER T VISIT OF 25 [facility] [address] [facility] T Emergency NICOLÁS Millard MD (ER) 3 15:20 3 17:49 [facility] EMERGENCY 04900 [place] DEPT 3 3 [facility] VISIT INC HIGH SEVERITY& THREAT [facility] [place] - 3 3 [facility] OUTPATIEN INC T HOSPITAL [place] - 3 3 [facility] OUTPATIEN INC T OFFICE 07008 A C JALEESA OUTPATIEN 3 3 FILEMON IBRAHIM JEAvtar T VISIT PSC 15 MINUTES Emergency NICOLÁS Millard MD (ER) 3 14:54 3 16:00 [facility] EMERGENCY 26069 POPPY SANTA DEPT 3 3 EMERGENCY VISIT SERVICES HIGH SEVERITY& THREAT [facility] [place] - 3 3 [facility] OUTPATIEN INC T EMERGENCY 87281 [place] 3 3 [facility] DEPARTMEN INC T VISIT HIGH/URGE NT SEVERITY OFFICE 95850 AR[facility]RITIS [facility] OUTPATIEN 3 3 CENTER T VISIT OF 25 [facility] OFFICE 57892 A C JOMARLA OUTPATIEN 3 3 FILEMON SHAH T VISIT PSC 15 MINUTES HOSPITAL [place] - 3 3 [facility] OUTPATIEN INC T OFFICE 58032 AR[facility]IS [facility] OUTPATIEN 3 3 CENTER T VISIT OF 10 [facility] [place] - 3 3 [facility] [place] - 3 3 [facility] OFFICE 72838 ARTHRITIS [facility]O RIT OUTPATIEN 3 3 CENTER T VISIT OF 25 [facility] [place] - 3 3 [facility] UNIVERSIT - 3 3 Y [facility] OFFICE 99514 [place] DONNA [facility] 3 3 MEDICAL JAM T VISIT SERV 40 [facility] [place] - 3 3 [facility] UNIVERSIT - 3 3 Y INPATIENT HOSPITAL EMERGENCY 44784 TARAS LANTIGUA DEPT 3 3 MEDICAL PSYCHOLOGIST SOCIAL VISIT SERV HIGH FOUNDATIO SEVERITY& THREAT [facility] OFFICE 65186 TARAS GATES OUTPATIEN 3 3 MEDICAL YATACO T VISIT SERV ANG 25 [facility] 2 3 Y INPATIENT HOSPITAL EMERGENCY 24043 POPPY KEENE DEPT 2 2 EMERGENCY VENUS VISIT SERVICES HIGH SEVERITY& THREAT [facility] EMERGENCY 99640 POPPY SANTA DEPT 2 2 EMERGENCY VISIT SERVICES HIGH SEVERITY& THREAT [facility] [place] [address] 2 N [facility]YS [facility] HOSPITA OFFICE 55408 CULBERTSO CULBERTSO OUTPATIEN 2 2 N KALYAN N KALYAN T VISIT 15 MINUTES OFFICE 75144 CULBERTSO CULBERTSO OUTPATIEN 1 1 N KALYAN N KALYAN T VISIT 15 MINUTES HOSPITAL UNIVERSIT - 1 1 Y [facility] UNIVERSIT - 1 1 Y [facility] UNIVERSIT - 0 0 Y [facility] OFFICE 20316 CULBERTSO CULBERTSO OUTPATIEN 0 0 N KALYAN BIGGS T VISIT 15 MINUTES OFFICE 48357 TARAS MARTINEZ OUTPATIEN 0 0 MEDICAL KAMALA T VISIT SERV 15 FOUNDATIO MINUTES EMERGENCY 39642 [place] 0 0 [facility] DEPARTMEN INC T VISIT MODERATE SEVERITY [facility]OSPITAL [place] - 0 0 [facility] OUTPATIEN [facility] EMERGENCY 13246 POPPY MORRISSEY DEPT 0 0 EMERGENCY III TRISTA VISIT SERVICES HIGH SEVERITY& THREAT [facility] OFFICE 65725 TARAS MARTINEZ OUTPATIEN 0 0 MEDICAL KAMALA T VISIT SERV 15 FOUNDATIO MINUTES [facility] [place] - 0 0 [facility] OUTPATIEN [facility] T EMERGENCY 03531 [place] 0 0 [facility] DEPARTMEN INC T VISIT LOW/MODER SEVERITY OFFICE 30389 CULBERTSO CULBERTSO OUTPATIEN 9 9 N, GEREMIAS DOUGHERTY VISIT 15 MINUTES [facility] - 9 9 N [facility] OFFICE 45905 CULBERTSO CULBERTSO OUTPATIEN 9 9 GEREMIAS Bautista ROBERT T VISIT 15 MINUTES OFFICE 79781 CULBERTSO CULBERTSO OUTPATIEN 9 9 GEREMIAS Bautista ROBERT T VISIT 25 MINUTES OFFICE 15348 CULBERTSO CULBERTSO OUTPATIEN 9 9 GEREMIAS Bautista ROBERT T VISIT 15 MINUTES HOSPITAL UNIVERSIT - 9 9 Y [facility] OFFICE 66495 KAM ENCARNACION 9 9 MEDICAL TONO J ION SERV NEW/ESTAB FOUNDATIO PATIENT 40 MIN HOSPITAL UNIVERSIT - 9 9 Y [facility] - [address] [facility] T OFFICE 27251 [facility] 9 9 [facility] DEONTE, NESHA T VISIT ORTHOPAED A 15 IC MINUTES SURGEONS [facility] UNIVERSIT - [address] [facility] T OFFICE 03226 MNOICA ANDERSON [facility] 8 8 N, GEREMIAS DOUGHERTY T VISIT 15 MINUTES [facility] 8 8 N [facility] OFFICE 45193 [facility] 8 8 II, NESHA IINESHA T VISIT A A 15 MINUTES
--- OUTSIDE RECORDS SUMMARY | 2016-09-28 15:23 | External Medical Summary Rpt ---
Author Author , Organization [employer] Address Unknown Phone Unavailable Care Team Providers Care Dance Costume Designer Name Role Phone A Candice COLBERT MD [...] SOHEILA [facility] Unavailable Unavailable SERVICE, [facility] Unavailable Unavailable SERVICE, [facility] CAMILLE KET, CAMILLE KET Unavailable Unavailable GRZEGORZ PATIENT ACCOUNTING REPRESENTATIVE, GRZEGORZ Unavailable Unavailable PATIENT ACCOUNTING REPRESENTATIVE TITI JAG, TITI Unavailable Unavailable JAG [facility] [...] NAN JESSICA [facility], JESSICA Unavailable Unavailable [facility] Unavailable Unavailable HOSPITA, [facility] Unavailable [facility]available [facility], [facility], [facility] Unavailable [facility]available [facility] Unavailable Unavailable INC, [facility] Un[facility] P, [facility] P DUBOIS KAMALA, DUBOIS KAMALA Unavailable Unavailable RENA, MARIXA G, RENA, Unavailable Unavailable MARIXA G [facility] Un[facility], [facility] HARLEY OSCAR, Unavailable Unavailable [...] HOLDINGS, [facility] [employer] [facility], Unavailable Unavailable [facility] [facility] JUAN KAMALA, Unavailable Unavailable JUAN KAMALA TONO MARTINEZ, Unavailable Unavailable TONO MARTINEZ HAYWOOD MARION, HAYWOOD Unavailable Unavailable MARION JESICA JAM, JESICA JAM Unavailable Unavailable TIAGO JR DWI, TIAGO Unavailable Unavailable JR DWI LUKINS TIERRA, LUKINS Unavailable Unavailable TIERRA [facility] Unavailable Unavailable SERVICES, [facility] MAKSIM II, NESHA A, Unavailable [...] SADIE GIRARD PRE, SHAJI Unavailable Unavailable PRE [facility], Unavailable Unavailable [facility] Unavailable Unavailable [facility], [facility] INTER GERALD MINA, Unavailable Unavailable [...] SERV PULMONARY FOUNDATIO FIBROSIS 7245 UNSPECIFIED 03-19-2013 [facility] 02932 OTHER 03-19-2013 [facility] [place] [address] OBSTRUCTIVE 03-10-2013 [facility] APNEA MEDICAL EQUIPME 92453 OTHER 03-07-2013 [place] DISEASES OF [facility] LUNG NOT INC ELSEWHERE CLASSIFIED 7242 LUMBAGO 03-06-2013 [facility] INC V571 OTHER 03-06-2013 [facility] THERAPY INC 02435 OTHER 03-01-2013 [place] [facility] CONDITIONS SERV OF BRAIN F[facility]AT[facility] 7140 RHEUMATOID 03-01-2013 [place] [facility] ARTHRITIS SERV [facility] 7840 HEADACHE 03-01-2013 [place] [facility] 22032 DIARRHEA 03-01-2013 [place] [facility] 7930 NONSPECIFIC 03-01-2013 [facility] ABN FNDNG SERV RAD & OTH FOUNDATIO EXM SKULL & HEAD E8889 UNSPECIFIED 03-01-2013 [place] [facility] FALL SERV [facility] 42598 OTHER 02-28-2013 [place] [facility] CHRONIC SERV PAIN F[facility] 4019 UNSPECIFIED 02-28-2013 [facility] ESSENTIAL SERV HYPERTENSIO FOUNDATIO N 59958 FEVER 02-28-2013 [place] [facility] UNSPECIFIED SERV F[facility] 71997 OTHER 02-28-2013 [place] [facility] NONSPECIFIC SERV ABNORMAL FOUNDATIO FINDING OF LUNG FIELD 412 OLD 02-27-2013 [facility] INFARCTION 82192 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 4829 UNSPECIFIED 02-27-2013 [facility] PNEUMONIA SERVICE 5184 UNSPECIFIED 02-27-2013 [facility] ACUTE SERV EDEMA OF FOUNDATIO LUNG 5849 ACUTE 02-27-2013 [facility] FAILURE UNSPECIFIED 43001 RHEUMATOID 02-27-2013 [facility] V4361 SHOULDER 02-27-2013 [facility] JOINT SERV REPLACEMENT FOUNDATIO BY OTHER MEANS V462 DEPENDENCE 02-27-2013 [facility] FOR SUPPLEMENTA L OXYGEN 46961 OBSTRUCTIVE 02-26-2013 [facility] P WITH EXACERBATIO N V5869 LONG-TERM 02-20-2013 [facility] (CURRENT) CENTER OF USE OF LEXINGTO OTHER MEDICATIONS V6751 F/U EXAM 02-20-2013 [facility] FOLLOW CMPL [place] [facility] W/HIGH-RISK MED NEC 96881 COR 02-12-2013 [facility] UNSPEC TYPE VESSEL SHOSHONE-PAIUTE/RAUL T 4940 BRONCHIECTA 01-31-2013 [place] [facility] SIS WITHOUT SERV ACUTE [place] N 88020 IDIOPATHIC 01-31-2013 [facility] FIBROS[facility] 7856 ENLARGEMENT 01-31-2013 [place] [facility] OF LYMPH SERV NODES FOUNDATIO 36134 SHORTNESS 01-31-2013 [place] [facility] BREATH SERV FOUND[facility] 54031 OTHER 01-31-2013 [facility] RESPIRATORY AMBULANCE SERVICE COMPLICATIO NS 0529 VARICELLA 01-06-2013 A Candice PINZON MD PSC MENTION OF COMPLICATIO N 7862 COUGH 01-06-2013 A Candice COLBERT MD PSC 4660 ACUTE 11-06-2012 A Candice COLBERT BRONCHITIS PSC V5812 ENCOUNTER 09-25-2012 [facility] FOR CENTER OF ANTINEOPLAS LEXINGTO TIC IMMUNOTHERA PY 2859 UNSPECIFIED 08-31-2012 [facility] 4841 PNEUMONIA 08-31-2012 [place] [facility] IN SERV CYTOMEGALIC FOUNDATIO INCLUSION DISEASE 5168 OTH SPEC 08-31-2012 [place] [facility] ALVEOL&DEONNA SERV ETOALVEOL FOUNDATIO PNEUMONOPAT HIES 88942 NAUSEA WITH 08-02-2012 [place] [facility] VOMITING SERV F[facility] V1209 PERSONAL HX 08-02-2012 [facility] OTH SERV INFECTIOUS& FOUNDATIO PARASITIC DISEASE 2724 OTHER AND 07-31-2012 [facility] HYPERLIPIDE ALEKSANDAR 5589 OTH&UNSPEC 07-31-2012 [place] [facility] NONINFECTIO SERV US FOUNDATIO GASTROENTER ITIS&COLITI S 96151 VOMITING 07-31-2012 [facility] INTER 94930 ABDOMINAL 07-31-2012 [place] [facility] PAIN, SERV EPIGASTRIC FOUNDATIO 28506 SYSTEMIC 07-31-2012 [facility] Y RESPONSE SYNDROME UNSPEC V1269 PERSONAL 07-31-2012 [place] [facility] HISTORY SERV OTHER FOUNDATIO DISEASES RESPIRATORY SYS 514 PULMONARY 07-03-2012 [facility] [place] CONGESTION RADIOLOGY AND HYPOSTASIS 7295 PAIN IN 07-03-2012 JERRI ESPERANZA SOFT TISSUES OF LIMB 7823 EDEMA 07-03-2012 J[facility] ESPERANZA 5119 UNSPECIFIED 07-01-2012 [facility] [place] PLEURAL RADIOLOGY EFFUSION 71281 OTHER 06-20-2012 [place] [facility] DISEASES OF SERV NASAL FOUNDATIO CAVITY AND SINUSES 5121 IATROGENIC 06-16-2012 [place] [facility] PNEUMOTHROA SERV X FOUNDATIO 09246 ACUTE AND 06-16-2012 [place] [facility] CHRONIC SERV RESPIRATORY FOUNDATIO FAILURE 05311 SEPTIC 06-16-2012 [place] [facility] SHOCK SERV [facility] 0785 CYTOMEGALOV 06-15-2012 [facility] DISEASE [facility] 71570 CHEST PAIN 06-15-2012 PALLIATIVE UNSPECIFIED CARE CTR OF THE B 7850 UNSPECIFIED 06-11-2012 [place] [facility] SERV TACHYCARDIA FOUNDATIO 4279 UNSPECIFIED 05-17-2012 [place] [facility] CARDIAC SERV DYSRHYTHMIA FOUNDATIO 50008 ACUTE 05-17-2012 [place] [facility] RESPIRATORY SERV FAILURE FOUNDATIO 83969 OTHER 04-24-2012 [facility] SEPT[facility]EMIA 1124 CANDIDIASIS 04-24-2012 [facility] 5070 PNEUMONITIS 04-24-2012 [facility] INHALATION OF FOOD OR VOMITUS 5100 EMPYEMA 04-24-2012 [facility] FISTULA 5183 PULMONARY 04-22-2012 [facility] A IMAGING ASS 42751 REFLUX 08-03-2011 [facility] ESOPHAGITIS [place] 11783 OTHER 08-03-2011 [facility] SYMPTOMS [place] INVOLVING DIGESTIVE SYSTEM OTHER 490 BRONCHITIS 07-13-2010 [facility] NOT [place] SPECIFIED ACUTE OR CHRONIC 60710 ASTHMA, 07-13-2010 [facility] UNSPECIFIED [place] , UNSPECIFIED STATUS 08684 PAIN IN 07-08-2010 [facility] JOINT, [facility] ANKLE AND FOOT 46051 DISORDER OF 07-08-2010 [facility] BONE AND SERV CARTILAGE FOUNDATIO UNSPECIFIED V454 ARTHRODESIS 07-08-2010 [facility] STATUS SERV FOUNDATIO V5489 OTHER 07-08-2010 [facility] AFTERCARE V5409 OTH 06-17-2010 [facility] AFTERCARE SERV INVOLVING FOUNDATIO INTERNAL FIXATION DEVICE V6700 FOLLOW-UP 06-01-2010 [facility] EXAMINATION SERV FOLLOWING FOUNDATIO UNSPEC SURGERY 90451 PRIMARY 05-12-2010 [facility] LOCALIZED SERV OSTEOARTHRO FOUNDATIO SIS ANKLE AND FOOT 95473 PAIN IN 05-12-2010 [facility] JOINT, SERV LOWER LEG FOUNDATIO V0481 NEED 05-12-2010 [facility] VACCINATION &INOCULATIO N FLU V5849 OTHER 05-12-2010 [facility] SPECIFIED SERV AFTERCARE FOUNDATIO FOLLOWING SURGERY 4659 ACUTE URIS 04-17-2010 [facility] OF [place] UNSPECIFIED SITE 01144 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 [facility] RHEUMATISM SERV ANKLE AND FOUNDATIO FOOT 66142 PAIN IN 04-02-2010 [facility] JOINT, [employer] 98676 OBST 03-12-2010 [facility] P W/ACUTE BRONCHITIS 76875 PAINFUL 03-12-2010 [facility] 20941 UNSPECIFIED 05-20-2009 GER[facility] BANERJEE ARTHROPATHY SITE UNSPECIFIED 4011 ESSENTIAL 05-09-2009 [facility] HYPERTENSIO FAMILY PHYS N, BENIGN PSC 83889 OTHER CHEST 05-09-2009 [facility] PAIN GEREMIAS V7651 SPECIAL 05-09-2009 [facility] SCREENING GER[facility]IAS FOR MALIGNANT NEOPLASMS COLON 7808 GENERALIZED 05-05-2009 [facility] BANERJEE HYPERHIDROS IS 5960 BLADDER 03-18-2009 [facility] [place] INC OBSTRUCTION 2720 PURE 03-17-2009 [facility] HYPERCHOLES GEREMIAS TEROLEMIA 71734 ESOPHAGEAL 03-17-2009 [facility] REFLUX GEREMIAS 02005 PRIMARY 03-17-2009 [facility] LOCALIZED [facility]ER[facility]IAS OSTEOARTHRO SIS OTH SPEC SITES 44114 [facility] 11-26-2008 [facility] INT ORTHOPEDIC DEVC IMPL&GFT 15645 OT COMPS 11-26-2008 [place] [facility] DUE OTH SERV INTRL FOUNDATIO ORTHOPED DEVICE IMPL&GFT 7271 BUNION 11-11-2008 [facility] 55589 NONSPECIFIC 11-11-2008 [facility] ELECTROCARD IOGRAM V4589 OTHER 11-11-2008 [facility] L STATUS OTHER 87904 EFFUSION OF 09-19-2008 [facility] JOINT ORTHOPAEDIC SURGEONS PSC 67847 VILLONODULA 09-19-2008 [facility] SYNOVITIS, ORTHOPAEDIC [facility]OWER [facility] SURGEONS PSC 5185 PULMONARY 05-16-2008 [facility] CY [facility]LLOW [facility] SURGERY 19248 UNSPECIFIED 05-15-2008 [place] [facility] [place] [address] EXTRINSIC 11-02-2007 PUL[facility] DOSE ASTHMA, PHARMACY UNSPECIFIED 56348 OSTEOARTHRO 07-13-2007 MAKSIM II, SIS UNSPEC NESHA A WHETHER GEN/LOC ANK&FOOT 68290 TENOSYNOVIT 07-13-2007 MAKSIM II, IS OF FOOT NESHA A AND ANKLE Procedures Procedure DOS Code Location Performer Comment PRTBLE E0431 AYLIN AYLIN GASEOUS 4 HOME HOME O2 SYS MEDICAL MEDICAL RENT; EQUIPME EQUIPME FLWMTR HUMIDFR&M ASK O2 CONC 1 E1390 AYLIN VIERA DEL PORT 4 HOME HOME 85%/>02 MEDICAL MEDICAL CONC AT EQUIPME EQUIPME PRSC FLW RATE SPMTRY 77546 TARAS BENSADOUN W/VC 3 MEDICAL NUVIA EXPIRATOR SERV Y RACHEL FOUNDATIO W/WO MXML VOL VNTJ PULMONARY 30739 [facility] STRESS 3 Y Y TESTING [facility] SIMPLE O2 CONC 1 E1390 AYLIN VIERA DEL PORT 3 HOME HOME 85%/>02 MEDICAL MEDICAL CONC AT EQUIPME EQUIPME PRSC FLW RATE PRTBLE E0431 AYLIN VIERA GASEOUS 3 HOME HOME O2 SYS MEDICAL MEDICAL RENT; EQUIPME EQUIPME FLWMTR HUMIDFR&M ASK NEBULIZER E0570 AYLIN VIERA WITH 3 HOME HOME COMPRESSO MEDICAL MEDICAL R EQUIPME EQUIPME THERAPEUT 29095 [place] [facility] IC PX 1/> 3 [facility] AREAS INC INC EACH 15 MIN EXERCISES E-STIM G0283 [place] [facility] 1/> AREAS 3 [facility] OTH THAN INC INC WND CARE PART TX PLAN APPLICATI 54040 [place] [facility] ON 3 [facility] MODALITY INC INC 1/> AREAS HOT/COLD PACKS E-STIM G0283 [facility] 1/> AREAS 3 [facility] OTH THAN INC INC WND CARE PART TX PLAN THERAPEUT 32070 [place] [place] PX 1/> 3 [facility]OS[facility] AREAS INC INC EACH 15 MIN EXERCISES CONTINUOU E0601 AYLIN VIERA S 3 HOME HOME POSITIVE MEDICAL MEDICAL AIRWAY EQUIPME EQUIPME PRESSURE DEVICE E-STIM G0283 [place] [facility] 1/> AREAS 3 [facility]OS[facility] OTH THAN INC INC WND CARE PART TX PLAN THERAPEUT 75031 [place] [facility] [place] PX 1/> 3 [facility] AREAS INC INC EACH 15 MIN EXERCISES SMR PRIM 90037 [place] [facility] SRC 3 [facility] GRAM/GIEM INC INC SA STAIN BCT FUNGI/LEONIDES L SPUTUM 77849 [place] [facility] OBTAINING 3 [facility] SPEC INC INC AEROSOL INDUCED TX SPX CUL BACT 29198 [place] [facility] XCPT 3 [facility] URINE INC INC BLOOD/STO OL AEROBIC ISOL E-STIM G0283 [place] [facility] 1/> AREAS 3 [facility] H[facility] OTH THAN INC INC WND CARE PART TX PLAN THERAPEUT 10249 [place] [facility] [place] PX 1/> 3 [facility] H[facility] AREAS INC INC EACH 15 MIN EXERCISES SBSQ 06572 [facility] 3 MEDICAL PRE CARE/DAY SERV 25 FOUNDATIO MINUTES RADIOLOGI 71066 [place] DU[place] KAMAL[place] C EXAM 3 MEDICAL CHEST 2 SERV VIEWS FOUNDATIO FRONTAL&[place] [address] [place] ARINA MCCOY HEAD/BRAI 3 MEDICAL N W/O SERV CONTRAST FOUNDATIO MATERIAL RADIOLOGI 85828 [place]AM[place] C EXAM 3 MEDICAL CHEST 2 SERV VIEWS FOUNDATIO FRONTAL&L ATERAL SBSQ 76317 [facility] 3 MEDICAL PRE CARE/DAY [place] [address] [place] [facility] INFUSION 3 [facility] THERAPY INC INC PROPHYLAX IS/DX EA HOUR AMB A[address] [facility] SERVICE 3 AMBULANCE AMBULANCE ALS SERVICE SERVICE EMERGENCY [place]SP[place] L[place] 1 [place] [address] [place] [facility] INFUSION 3 [facility] THERAPY/P INC INC ROPHYLAXI S /DX 1ST TO [address] [facility] MILEAGE 3 AMBULANCE AMBULANCE [place] [address] [facility] INFUSION 3 [facility] THER INC INC PROPH ADDL SEQUENTIA L TO 1 HR RADIOLOGI 88641 [place] AYOOB AND Candice 3 MEDICAL EXAMINATI SERV ON CHEST FOUNDATIO SINGLE VIEW FRONTAL CUL BACT 30738 [place] STEVENSON XCPT 3 [facility] HOS[facility] URINE INC INC BLOOD/STO OL AEROBIC ISOL CUL BACT 46186 [place] [facility] AEROBIC 3 [facility] ADDL INC INC METHS DEFINITIV E EA ISOL SMR PRIM 84577 [place] [facility] SRC 3 [facility] GRAM/GIEM INC INC SA STAIN BCT FUNGI/LEONIDES L SUSCEPTIB 56720 [place] [facility] LTY STDY 3 [facility] ANTIMICRB INC INC IAL MICRO/AGA R DILUTJ INITIAL 74451 [facility] 3 MEDICAL PRE CARE/DAY SERV 70 FOUNDATIO MINUTES IAADI 49322 [place] [facility] INFLUENZA 3 [facility] B VIRUS INC INC IAADI 68692 [place] [facility] INFFLUENZ 3 [facility] A A VIRUS INC INC THERAPEUT 42627 [place] [facility] [place] PX 1/> 3 [facility]OS[facility] AREAS INC INC EACH 15 MIN EXERCISES ECG 05788 [place] [facility] ROUTINE 3 [facility] ECG INC INC W/LEAST 12 LDS TRCG ONLY W/O I&R CULTURE 27747 [place] [facility] BACTERIAL 3 [facility] BLOOD INC INC AEROBIC W/ID ISOLATES CREATINE 33891 [place] [facility] KINASE 3 [facility] TOTAL INC INC PHYSICAL 98954 [place] [facility] THERAPY 3 [facility] EVALUATIO INC INC N BLOOD 76235 [place] [facility] COUNT 3 [facility] COMPLETE INC INC AUTO&AUTO DIFRNTL WBC RADIOLOGI 82057 [place] [facility] C 3 [facility] EXAMINATI INC INC [place] [address] [place] TROPONIN 3 [facility] QUANTITAT INC INC COURTNEY CREATINE 54840 V[place] [facility] KINASE MB 3 [facility] FRACTION INC INC ONLY ECG 41884 [place] BECERRIL ROUTINE 3 [facility] W/LEAST P 12 LDS I&R ONLY CRITICAL 13801 [place] [facility] CARE 3 [facility] ILL/INJUR INC INC ED PATIENT INIT 30-74 MIN E-STIM G0283 [place] [facility] 1/> AREAS 3 [facility] OTH THAN INC INC WND CARE PART TX PLAN BLOOD 86912 [place] [facility] GASES ANY 3 [facility] INC INC COMBINATI ON PH PCO2 PO2 CO2 HCO3 BASIC 56624 [place] [facility] METABOLIC 3 [facility] PANEL INC INC CALCIUM TOTAL COMPREHEN 53383 [facility] SIVE 3 [facility] PANEL COLLECTIO 16588 [facility] N VENOUS 3 [facility] BLOOD [facility] HOLDINGS VENIPUNCT URE BLOOD 79129 [facility] COUNT 3 [facility] COMPLETE [facility] HOLDINGS AUTOMATED C-REACTIV 85604 [facility] E PROTEIN 3 [facility] O2 CONC 1 E1390 AYLIN VIERA DEL PORT 3 HOME HOME 85%/>02 MEDICAL MEDICAL CONC AT EQUIPME EQUIPME PRSC FLW RATE PRTBLE E0431 AYLIN VIERA GASEOUS 3 HOME HOME O2 SYS MEDICAL MEDICAL RENT; EQUIPME EQUIPME FLWMTR HUMIDFR&M ASK NEBULIZER E0570 AYLIN VIERA WITH 3 HOME HOME COMPRESSO MEDICAL MEDICAL R EQUIPME EQUIPME SPMTRY 92572 [place] KET W/VC 3 MEDICAL EXPIRATOR SERV Y RACHEL FOUNDATIO W/[place] [address] [place] DIFFUSING 3 MEDICAL CAPACITY SERV FOUNDATIO GASES 03501 [facility] BLOOD PH 3 Y Y DIRECT HOSPITAL [facility] ANSHU XCPT PULSE OXIMITRY PULMONARY 87677 [place] STRESS 3 MEDICAL TESTING SERV SIMPLE FOUNDATIO ARTERIAL 60145 [facility] PUNCTURE 3 Y Y WITHDRAWA [facility]ITAL L BLOOD DX CT THORAX 71845 [facility] W/O 3 Y Y CONTRAST HOSPITAL [facility] MATERIAL PLETHYSMO 53798 [place] GRAPHY 3 MEDICAL MEDICAL LUNG SERV SERV VOLUMES FOUNDATIO FOUNDATIO W/WO AIRWAY RESIST CONTINUOU E0601 AYLIN VIERA S 3 HOME HOME POSITIVE MEDICAL MEDICAL AIRWAY EQUIPME EQUIPME PRESSURE DEVICE [facility] 25389 [place] SEETHARMR DISCHARGE 3 MEDICAL AJU HAZEL DAY SERV MANAGEMEN FOUNDATIO T 30 MIN/< ECG 50871 [place] [facility] ROUTINE 3 [facility] ECG INC INC W/LEAST 12 LDS TRCG ONLY W/O I&R THER 07077 [place] [facility] PROPH/DX 3 [facility] NJX IV INC INC PUSH SINGLE/1S T SBST/DRUG SUSCEPTIB 89183 [place] [facility] LTY STDY 3 [facility] ANTIMICRB INC INC IAL MICRO/AGA R DILUTJ CULTURE 97695 [place] [facility] BACTERIAL 3 [facility] BLOOD INC INC AEROBIC W/ID ISOLATES SMR PRIM 91089 [place] [facility] SRC 3 [facility] GRAM/GIEM INC INC SA STAIN BCT FUNGI/[place] [address] [facility] ONTIVEROS ANGIOGRAP 3 MEDICAL HY CHEST SERV W/CONTRAS FOUNDATIO T/NONCONT RAST ECG 31038 [place] ORDOÑEZ JR ROUTINE 3 [facility] W/LEAST P 12 LDS I&R ONLY BLOOD 23492 [place] [facility] COUNT 3 [facility] COMPLETE INC INC AUTO&AUTO DIFRNTL WBC CUL BACT 25145 [place] [facility] AEROBIC 3 [facility] ADDL INC INC METHS DEFINITIV E EA ISOL CUL BACT 62131 [place] [facility] XCPT 3 [facility] URINE INC INC BLOOD/STO OL AEROBIC ISOL RADIOLOGI 18610 [place] [facility] C 3 [facility] EXAMINATI INC INC ON CHEST SINGLE VIEW FRONTAL AMBULANCE A[address] [facility] SERVICE 3 AMBULANCE AMBULANCE BLS SERVICE SERVICE EMERGENCY TRANSPORT PRESSURIZ 68404 [place] [facility] ED/NONPRE 3 [facility] SSURIZED INC INC INHALATIO N TREATMENT RADIOLOGI 62802 [facility] ONTIVEROS C EXAM 3 MEDICAL CHEST 2 SERV VIEWS FOUNDATIO FRONTAL&L ATERAL [facility]OUND A0425 [facility]UL[facility] PER SERVICE SERVICE STATUTE MILE COMPREHEN 45519 [place] SIVE 3 [facility] METABOLIC INC INC PANEL ADMN SET A7003 YOUR YOUR SM VOL 3 [facility] P[facility] NEBULIZR DISPBL ALBUTEROL J7620 YOUR YOUR TO 2.5 3 PHARMACY PHARMACY [employer] IPRATROPI UM BROM TO 0.5 MG PHRM Q0513 YOUR YOUR DISPENSIN 3 PHARMACY PHARMACY [facility] INHALATIO N RX; PER 30 DAYS NEBULIZER E0570 AYLIN VIERA WITH 3 HOME HOME COMPRESSO MEDICAL MEDICAL R EQUIPME EQUIPME O2 CONC 1 E1390 AYLIN VIERA DEL PORT 3 HOME HOME 85%/>02 MEDICAL MEDICAL CONC AT EQUIPME EQUIPME PRSC FLW RATE PRTBLE E0431 AYLIN IVERA GASEOUS 3 HOME HOME O2 SYS MEDICAL MEDICAL RENT; EQUIPME EQUIPME FLWMTR HUMIDFR&M ASK RADIOLOGI 67657 [place] [facility] C EXAM 3 [facility] CHEST 2 INC INC VIEWS FRONTAL&L ATERAL CONTINUOU E0601 AYLIN VIERA S 3 HOME HOME POSITIVE MEDICAL MEDICAL AIRWAY EQUIPME EQUIPME PRESSURE DEVICE 3D 24575 [place] [facility] RENDERING 3 [facility] W/INTERP INC INC & POSTPROCE SS SUPERVISI ON CREATINE 82376 [place] [facility] KINASE 3 [facility]OS[facility] TOTAL INC INC BLOOD 62607 [place] [facility] COUNT 3 [facility]OS[facility] COMPLETE INC INC AUTO&AUTO DIFRNTL WBC RHYTHM 97626 [place] [facility] ECG 1-3 3 [facility] LEADS INC INC TRACING ONLY W/O I&[place] [address] [place] [facility] TROPONIN 3 [facility] [place] [address] [place] [facility] HEAD/BRAI 3 [facility] N W/O INC INC CONTRAST MATERIAL CREATINE 87987 [facility] KINASE MB 3 [facility] FRACTION INC INC ONLY COMPREHEN 08652 [facility] SIVE 3 [facility] METABOLIC INC INC PANEL ECG 02453 [place] ORDOÑEZ JR ROUTINE 3 [facility] W/LEAST P 12 LDS I&R ONLY ECG 84037 [place] [facility] ROUTINE 3 [facility] ECG INC INC [...] MEDICAL RENT; EQUIPME EQUIPME FLWMTR HUMIDFR&M ASK CONTINUOU E0601 AYLIN VIERA S 3 HOME HOME POSITIVE MEDICAL MEDICAL AIRWAY EQUIPME EQUIPME PRESSURE DEVICE HEADGEAR A7035 AYLIN VIERA USED 3 HOME HOME W/POSITIV MEDICAL MEDICAL E AIRWAY EQUIPME EQUIPME PRESSURE DEVICE FULL FACE A7030 AYLIN VIERA MASK 3 HOME HOME USED MEDICAL MEDICAL W/POS EQUIPME EQUIPME ARWAY PRESS DEVICE EA PRTBLE E0431 AYLIN VIERA GASEOUS 3 HOME [...] HR PER SESS TO 2 PER DAY COLLECTIO 84546 [facility] N VENOUS 3 [facility] VENIPUNCT URE COMPREHEN 29628 [facility] SIVE 3 [facility] MET[facility]OLIC [facility] PANEL C-REACTIV 15206 [facility] E PROTEIN 3 [facility] BLOOD 93864 [facility] COUNT 3 [facility] COMPLETE [facility] AUTOMATED PULM G0424 [place] [facility] REHAB 3 MEM [...] PER SESS TO 2 PER DAY POLYSOM 82509 [facility] 6/>YRS 3 [facility] MEM [...] CONC AT EQUIPME EQUIPME PRSC FLW RATE BRNCDILAT 95392 [place] [facility] RSPSE 3 [facility] SPMTRY INC INC PRE&POST- BRNCDILAT ADMN GAS 58214 [place] [facility] DILUT/WAS 3 [facility] HOUT LUNG INC INC VOL W/WO DISTRIB VENT&V NEBULIZER E0570 AYLIN VIERA WITH 3 HOME HOME [facility] [place] [address] [facility] FOLIC 3 Y Y ACID RBC [facility] COLLECTIO 66[facility] Y Y [facility]LOOD [facility] VENIPUNCT URE COMPREHEN 67387 [facility] SIVE 3 Y Y METABOLIC [facility] PANEL RADIOLOGI 84192 [facility] C EXAM 3 Y Y CHEST 2 [facility] VIEWS FRONTAL&L ATERAL IRON 92288 [facility] BINDING 3 Y Y [facility] PREALBUMI 36758 [facility] UNIVERS N 3 Y Y HOSPITAL HOSPITAL BLOOD 94132 [facility] COUNT 3 Y Y COMPLETE [facility] AUTO&AUTO DIFRNTL WBC RHEUMATOI 46900 [facility] D FACTOR 3 Y Y QUANTITAT [facility] COURTNEY ANTINUCLE 16675 [facility] LAB HEIDI AR 3 Y [facility] [place] FLUORESCE 75947 [facility] NT 3 Y Y NONNFCT [facility] AGT ANTB SCREEN EA ANTIBODY CYANOCOBA 77714 [facility] CLARISSE [address] [facility]12 STANDARD K0001 AYLIN VIERA WHEELCHAI 3 HOME [...] COMPRESSO MEDICAL MEDICAL R EQUIPME EQUIPME POLYSOM 04743 [place] 6/>YRS 3 [facility] SLEEP INC INC W/CPAP 4/> ADDL [facility] 78811 [facility] 3 MEDICAL JAG DAY SERV MANAGEMEN FOUNDATIO T 30 MIN/< SBSQ 29642 [facility] 3 MEDICAL JAG CARE/DAY SERV 25 FOUNDATIO MINUTES RADEX ABD [address]97 [place] DISANTIS COMPL 3 MEDICAL SIDDHARTHA AQT ABD SERV W/S/E/D FOUNDATIO VIEWS 1 VIEW CH RADEX ABD 31604 [place] JAM COMPL 3 MEDICAL AQT ABD SERV W/S/E/D FOUNDATIO VIEWS 1 VIEW [facility] [address] [place] ABDOMINAL 3 MEDICAL DEENA REAL SERV TIME FOUNDATIO W/IMAGE LIMITED INITIAL 11501 [facility] 3 Y OF MARION CARE/DAY [...] MEDICAL ADJUSTABL EQUIPME EQUIPME E/FIXED HEIGHT DUP-SCAN 97295 JERRI JERRI XTR VEINS 3 ESPERANZA ESPERANZA COMPLETE BILATERAL STUDY RADIOLOGI 73243 [facility] [place] KOSTELIC C EXAM 3 RADIOLOGY MONTSERRAT CHEST 2 VIEWS FRONTAL&L ATERAL RADIOLOGI 91211 [facility] [place] NOEL C EXAM 3 RADIOLOGY GODFREY CHEST 2 VIEWS FRONTAL&L ATERAL MRI BRAIN 81812 [place] LUKINS BRAIN 3 MEDICAL TIERRA STEM W/O SERV CONTRAST FOUNDATIO MATERIAL SBSQ 49811 [facility] 3 E CARE CARE/DAY CTR OF 15 THE B [facility]ES [facility] DE[facility] 64170 [place] INCL 3 MEDICAL OSCAR FLUOR SERV GDNCE DX FOUNDATIO W/CELL WASHG SPX SBSQ 18542 [facility] 3 E CARE CARE/DAY CTR OF 25 THE B MINUTES CLOSED 3324 [facility] BIOPSY OF 3 Y Y BRONCHUS [facility] VENOUS 3893 [facility] CATHETERI 3 Y Y [facility] NOT ELSEWHERE CLASSIFIE D ECG 98227 TARAS NEVAREZ CHI ROUTINE 3 MEDICAL ECG SERV W/LEAST FOUNDATIO 12 LDS I&R ONLY ECG 46811 TARAS HU ROUTINE 3 MEDICAL NAN ECG SERV W/LEAST FOUNDATIO 12 LDS I&R ONLY CONTINUOU E0601 AYLIN VIERA S 2 HOME HOME POSITIVE MEDICAL MEDICAL AIRWAY EQUIPME EQUIPME PRESSURE DEVICE STANDARD K0001 AYLIN ABARCARELL WHEELCHAI 2 HOME HOME R MEDICAL MEDICAL EQUIPME EQUIPME THORACOSC [address] [facility] LUNG 2 Y Y BIOPSY [facility] ECG 41470 TARAS NEVAREZ CHI ROUTINE 2 MEDICAL ECG SERV W/LEAST FOUNDATIO 12 LDS I&R ONLY ECG 70602 TARAS ROSENBERG ROUTINE 2 MEDICAL ECG SERV W/LEAST FOUNDATIO 12 LDS I&R ONLY ECG 28204 TARAS NEVAREZ CHI ROUTINE 2 MEDICAL ECG SERV W/LEAST FOUNDATIO 12 LDS I&R ONLY ECG 45244 TARAS HU ROUTINE 2 MEDICAL NAN ECG SERV W/LEAST FOUNDATIO 12 LDS I&R ONLY CONT 9671 [facility] 2 Y Y [facility] < 96 CONSECUTI VE HOURS INSERTION 9604 [facility] [place] 2 Y Y [facility] EAL TUBE RADIOLOGI 66384 [place] [facility] [facility] 2 MEDICAL TIERRA EXAMINATI IMAGING ON CHEST ASS SINGLE VIEW FRONTAL RADIOLOGI 01276 [facility] 2 MEDICAL TIERRA EXAMINATI IMAGING ON CHEST ASS SINGLE VIEW FRONTAL PHARM G0333 YOUR YOUR DISPEN 2 PHARMACY PHARMACY [facility] [employer] RX; INITIAL 30-DAY SUPPLY ADMN SET A7003 YOUR YOUR SM VOL 2 PHARMACY PHARMACY NONFILTR LLC LLC PNEUMAT NEBULIZR DISPBL ALBUTEROL J7620 YOUR YOUR TO 2.5 2 PHARMACY PHARMACY [employer] LLC IPRATROPI UM BROM TO 0.5 MG RADIOLOGI 47916 [place] DAW[place] C EXAM 2 MEDICAL TIERRA CHEST 2 IMAGING VIEWS ASS FRONTAL&L ATERAL ECG 56919 POPPY JESSICA ROUTINE 2 EMERGENCY VENUS ECG SERVICES W/LEAST 12 LDS I&R ONLY BLOOD 29444 [facility] OCCULT 2 N N PEROXIDAS COMMUNITY COMMUNITY E ACTV HOSPITA HOSPITA QUAL FECES 1-3 SPEC OVA&CHAD 61176 [facility] ITES 2 N N DIRECT COMMUNITY COMMUNITY SMEARS HOSPITA HOSPITA CONCENTRA TION & ID SMR PRIM 93822 [facility] SRC 2 N N GRAM/GIEM COMMUNITY COMMUNITY SA STAIN HOSPITA HOSPITA BCT FUNGI/LEONIDES L SMR PRIM 01287 [facility] SRC CPLX 2 N N SPEC COMMUNITY COMMUNITY STAIN HOSPITA HOSPITA OVA&CHAD ITS BLOOD 39138 [facility] OCCULT 2 N KALYAN N KALYAN PEROXIDAS E ACTV QUAL FECES 1 DETER COMPREHEN 98630 LAB [facility] LAB HEIDI SIVE 2 AMERIC AMERIC METABOLIC HOLDING HOLDING PANEL COLLECTIO 47956 [facility] LAB HEIDI N VENOUS 2 AMERIC AMERIC BLOOD HOLDING HOLDING VENIPUNCT URE C-REACTIV 49521 [facility] LAB HEIDI E PROTEIN 2 AMERIC AMERIC HOLDING HOLDING BLOOD 13073 [facility] LAB HEIDI COUNT 2 AMERIC AMERIC COMPLETE HOLDING HOLDING AUTOMATED BLOOD 77242 LAB HE[facility]I LAB HEIDI COUNT 1 AMERIC AMERIC COMPLETE HOLDING HOLDING AUTOMATED C-REACTIV 73291 LAB [facility] LAB HEIDI E PROTEIN 1 AMERIC AMERIC HOLDING HOLDING COLLECTIO 45025 [facility] LAB HEIDI N VENOUS 1 AMERIC AMERIC BLOOD HOLDING HOLDING VENIPUNCT URE COMPREHEN 34273 [facility] LAB HEIDI SIVE 1 AMERIC AMERIC METABOLIC HOLDING HOLDING PANEL RADEX 85843 [facility] 1 Y Y [facility] HOSPITAL MINIMUM 3 VIEWS WALKING L4360 [employer] [employer] [facility], [facility] BOOT 1 PNEUMATC &/ VACUUM PREFAB CUSTM FIT COLLECTIO 58750 [facility] N VENOUS 1 Xylitol [place] [facility] BLOOD VENIPUNCT URE LIPID 41853 [facility] PANEL 1 [place] [facility] [place] INC TRANSFERA 76483 [facility] SE 1 [place] INC [place] INC ASPARTATE AMINO AST SGOT APPLICATI 01438 [place] ON SHORT 1 MEDICAL MEDICAL LEG CAST SERV SERV WALKING/A FOUNDATIO FOUNDATIO MBULATORY RADIOLOGI 11945 [facility] 1 Y Y [facility] ON FOOT 2 VIEWS CAST Q4038 [place] JUAN SUPPLIES 1 MEDICAL KAMALA SHORT LEG SERV CAST FOUNDATIO ADULT FIBERGLAS S CAST Q4038 [place] JUAN SUPPLIES 1 MEDICAL [place] SHORT LEG SERV CAST FOUNDATIO ADULT FIBERGLAS S APPLICATI 69094 [place] SHORT 1 MEDICAL MEDICAL LEG CAST SERV SERV BELOW FOUNDATIO FOUNDATIO KNEE-TOE [facility] G0378 [facility] OBSERVATI 0 Y Y ON HOSPITAL HOSPITAL SERVICE PER HOUR PHYSICAL 08062 [facility] THERAPY 0 Y Y EVALUATIO [facility] N 14388 HI GERALD GUIDANCE 0 MEDICAL JUS NEEDLE SERV PLACEMENT FOUNDATIO IMG S&I BONE 44257 [facility] GRAFT ANY 0 Y Y DONOR HOSPITAL HOSPITAL AREA MAJOR/LAR GE FLUOROSCO 31478 [facility] PY SPX >1 0 Y Y HOUR HOSPITAL HOSPITAL PHYS/QHP TIME INJECTION 00896 [facility] MEDICAL JUS ANESTHETI SERV C AGENT FOUNDATIO SCIATIC NRV SINGLE INJECTION 21588 [facility] MEDICAL JUS ANESTHETI SERV C AGENT FOUNDATIO FEMORAL NERVE SINGLE ANESTHESI 94213 HI GERALD A ON BONY 0 MEDICAL JUS PELVIS SERV FOUNDATIO ARTHRODES 74250 [facility] 0 Y Y SUBTALAR [facility] SMR PRIM 10122 [facility] LAB HE[facility]I SRC 0 AMERIC AMERIC GRAM/GIEM HOLDING HOLDING SA STAIN BCT FUNGI/LEONIDES L CUL BACT 23870 LAB [facility] LAB HEIDI XCPT 0 AMERIC AMERIC URINE HOLDING HOLDING BLOOD/STO OL AEROBIC ISOL CULTURE 41447 LAB [facility] LAB HEIDI BACTERIAL 0 AMERIC AMERIC ANY HOLDING HOLDING SOURCE ANAEROBIC ISO&ID RADIOLOGI 96399 [place] DA[place] C 0 MEDICAL TIERRA EXAMINATI IMAGING ON CHEST ASS SINGLE VIEW FRONTAL BLOOD 57554 [place] COUNT 0 [facility] COMPLETE INC INC AUTO&[place] [address] [place] [facility] TROPONIN 0 [facility] QUANTITAT INC INC COURTNEY THER 02992 [place] [facility] PROPH/DX 0 [facility] NJX IV INC INC PUSH SINGLE/1S T SBST/DRUG CREATINE 44303 [facility] COLEMAN KINASE 0 [facility] TOTAL INC INC BASIC 83365 [facility] METABOLIC 0 [facility] PANEL INC INC CALCIUM TOTAL PRESSURIZ 15707 [place] ED/NONPRE 0 [facility] SSURIZED INC INC INHALATIO N TREATMENT CREATINE 31124 [place] COLEMAN KINASE MB 0 [facility] FRACTION INC INC ONLY ECG 07419 POPPY MORRISSEY ROUTINE 0 EMERGENCY III TRISTA ECG SERVICES W/LEAST 12 LDS I&R ONLY ECG 70514 [place] [facility] ROUTINE 0 [facility] ECG INC INC W/LEAST 12 LDS TRCG ONLY W/O I&R DUP-SCAN 13067 [place] [facility] XTR VEINS 0 [facility] INC INC UNILATERA L/LIMITED STUDY 3D 36507 [place] [facility] RENDERING 0 [facility] INC INC W/INTERP& POSTPROC DIFF WORK STATION CT LOWER 37164 [place] [facility] EXTREMITY 0 [facility] W/O INC INC CONTRAST MATERIAL INJECTION J1040 MONICA ANDERSON 9 N, GEREMIAS DOUGHERTY METHYLPRE DNISOLONE ACETATE 80 MG CV STRS 57367 MONICA ANDERSON TST 9 N, GEREMIAS DOUGHERTY XERS&/OR RX CONT ECG I&R ONLY TECHNETIU A9500 [facility] TC-99M 9 N N [facility] DX PER HOSPITAL HOSPITAL STUDY DOSE MYOCRD 00632 [facility] PRFUJ STD 9 N N WALL [facility] HOSPITAL QUAL/RENEE STD MYOCRD 03751 [facility] PRFUJ STD 9 N N EJEC FXJ [facility] BLOOD 26458 MONICA ANDERSON OCCULT 9 N, GEREMIAS DOUGHERTY PEROXIDAS E ACTV QUAL FECES 1 DETER MYOCRD 78367 [facility] PRFUJ IMG 9 N N TOMOG [facility] SPECT [facility]GAL [facility] STD CV STRS 88648 MONICA ANDERSON TST 9 N, GEREMIAS DOUGHERTY XERS&/OR RX CONT ECG W/O I&R CV STRS 03530 [facility] TST 9 N N XERS&/OR [facility] RX CONT [facility] [place] [address] [facility] IRON 9 [facility] COLLECTIO 92854 [facility] N VENOUS 9 [facility] BLOOD VENIPUNCT URE IRON 26571 [facility] BINDING 9 [facility] CAPACITY COLLECTIO 15051 [facility] N VENOUS 9 [facility] BLOOD VENIPUNCT URE BLOOD 09964 [facility] COUNT 9 [facility] COMPLETE AUTO&AUTO DIFRNTL WBC INFLUENZA G9141 MONICA ANDERSON A H1N1 9 N, GEREMIAS DOUGHERTY IMMUNIZAT ION ADMINISTR ATION PWR E2365 ALLIED ALLIED WHLCHAIR 9 HOME HOME ACSS U-1 MEDICAL, MEDICAL, SEALED INC. INC. LEAD ACID BATTRY EA REPR/SRVC K0739 ALLIED ALLIED DME NOT 9 HOME HOME O2 RQR MEDICAL, MEDICAL, TECH INC. INC. CMPNT PER 15 MINS SUSCEPTIB 62211 LAB [facility]I LTY STDY 9 AMERIC AMERIC ANTIMICRB HOLDING HOLDING IAL MICRO/AGA R DILUTJ SMR PRIM 42901 [facility] LAB HEIDI SRC 9 AMERIC AMERIC GRAM/GIEM HOLDING HOLDING SA STAIN BCT FUNGI/LEONIDES L CUL BACT 82115 [facility] LAB HEIDI XCPT 9 AMERIC AMERIC URINE HOLDING HOLDING BLOOD/STO OL AEROBIC ISOL CULTURE 82541 LAB [facility] LAB HEIDI BACTERIAL 9 AMERIC AMERIC ANY HOLDING HOLDING SOURCE ANAEROBIC ISO&ID LIPID 92794 [facility] PANEL 9 [facility] COLLECTIO 91388 [facility] N VENOUS 9 [facility] BLOOD VENIPUNCT URE COMPREHEN 87069 [facility] SIVE 9 [facility] [place] [address] [facility] PROSTATE 9 [facility] SPECIFIC ANTIGEN TOTAL INJECTION J2175 [facility] 9 Y Y MEPERIDIN [facility] E HCL PER 100 MG RINGERS J7120 [facility] LACTATE 9 Y Y INFUSION [facility] UP TO 1000 CC FLUOROSCO 34549 [facility] PY SPX >1 9 Y Y HOUR [facility] PHYS/QHP TIME CUL BACT 16598 [facility] XCPT 9 Y Y URINE HOSPITAL [facility] BLOOD/STO OL AEROBIC ISOL INJECTION J3010 [facility] FENTANYL 9 Y Y [facility] 0.1 MG INJECTION J0690 [facility] 9 Y Y CEFAZOLIN [facility] SODIUM 500 MG INJECTION J2270 [facility] MORPHINE 9 Y Y SULFATE [facility] UP TO 10 MG SMR PRIM 68188 [facility] SRC 9 Y Y GRAM/GIEM [facility] SA STAIN BCT FUNGI/LEONIDES L REMOVAL 85595 [facility] IMPLANT 9 [place] [address] [facility] SURG 9 Y Y PATHOLOGY [facility] GROSS EXAMINATI ON ONLY BLOOD 95884 [facility] COUNT 9 Y Y [facility]OSPITAL AUTOMATED COLLECTIO 90612 [facility] N VENOUS 9 Y Y BLOOD [facility] VENIPUNCT URE RADEX 83648 [facility] FOOT 9 Y Y COMPLETE [facility] MINIMUM 3 VIEWS ECG 39617 TARAS CHASE, ROUTINE 9 MEDICAL MARIXA G ECG SERV W/LEAST FOUNDATIO 12 LDS I&R ONLY BASIC 12925 [facility] METABOLIC 9 Y Y PANEL [facility] CALCIUM TOTAL ECG 86769 [facility] ROUTINE 9 Y Y ECG [facility] W/LEAST 12 LDS TRCG ONLY W/O I&R CELL 30685 [facility] COUNT 9 Y Y MIS BODY [facility] FLUIDS W/DIFFERE NTIAL COUNT COLLECTIO 08763 [facility] N VENOUS 9 Y Y BLOOD [facility] VENIPUNCT URE ARTHROCEN 96391 [place]ON[place] MAKSIM TESIS 9 LTH II, NESHA ASPIR&/IN ORTHOPAED A J MAJOR IC JT/BURSA SURGEONS W/O US PSC CUL BACT 02378 [facility] XCPT 9 Y Y URINE [facility] BLOOD/STO OL AEROBIC ISOL INJ J0702 [facility] MAKSIM BETAMETHA 9 LTH II, NESHA SONE ORTHOPAED A ACETATE & IC SURGEONS PHOSPHATE PSC 3 MG SMR PRIM 80349 [facility] SRC 9 Y Y GRAM/GIEM [facility] SA STAIN BCT FUNGI/LEONIDES L PWR E2365 ALLIED ALLIED WHLCHAIR 9 HOME HOME ACSS U-1 MEDICAL, MEDICAL, SEALED INC. INC. LEAD ACID BATTRY EA REP/NONRO E1340 ALLIED ALLIED UTINE 9 HOME HOME SRVC DME MEDICAL, MEDICAL, RQR SKL INC. INC. TECH LABR-15 MIN SBSQ 40953 [facility] 8 EMERGENCY N, CARE/DAY SERVICES TADARRO 25 MINUTES ASSOCIATE S INITIAL 32819 [facility] INPATIENT 8 EMERGENCY N, CONSULT SERVICES TADARRO NEW/ESTAB PT 110 ASSOCIATE MIN S ANESTH 05891 COMMONKRANTHI CAUSEY 8 [facility] REEMA Harvey ANESTHESI ARTHROSCO A PSC PIC PROC KNEE JOINT LEVEL III 23053 [place] ANN, SURG 8 MEDICAL TIM E PATHOLOGY SERV FOUNDATIO GROSS&VENUS ROSCOPIC EXAM ANES 98932 [place] HIRO, LOWER 8 ANESTHESI JENNIFER Vieira INTESTINE A GROUP PSC ENDOSCOPY DISTAL DUODENUM COLONOSCO 40357 [facility], PY FLX DX 8 [place] RICHY G W/COLLJ GASTROENT SPEC WHEN PFRMD CELL 84628 [facility] COUNT 8 Y Y MISC BODY [facility] FLUIDS W/DIFFERE NTIAL COUNT CUL BACT 88929 [facility] XCPT 8 Y Y URINE [facility] BLOOD/STO OL AEROBIC ISOL SMR PRIM 77332 [facility] SRC 8 Y Y GRAM/GIEM [facility] SA STAIN BCT FUNGI/LEONIDES L ADMN SET A7003 PULMO PULMO SM VOL [...] NONFILTR PHARMACY PHARMACY PNEUMAT NEBULIZR DISPBL DUP-SCAN 16747 [facility] LXTR 8 N N ART/ARTL [facility] COMPL BI STUDY PHRM Q0513 [...] DOSE NONFILTR PHARMACY PHARMACY PNEUMATIC NEBULIZER DISPBL RADIOLOGI 27258 MAKSIM MAKSIM C EXAM 8 II, NESHA II, NESHA KNEE A A COMPLETE 4/MORE VIEWS RADIOLOGI 14574 MAKSIM MAKSIM C 8 II, NESHA II, NESHA EXAMINATI A A ON KNEE 1/2 VIEWS [facility] Q0513 PULMO PULMO DISPENSIN 8 DOSE DOSE G FEE PHARMACY PHARMACY INHALATIO N RX; PER 30 DAYS ALBUTEROL J7620 PULMO PULMO TO 2.5 8 DOSE DOSE MG & PHARMACY PHARMACY IPRATROPI UM BROM TO 0.5 MG Encounters Encounter Start End Date Code Location Performer Type Date [facility] 3 3 Y [facility] [place] [facility] 3 [facility] [place] [facility] 11043 TARAS SALAZAR DEPT 3 3 MEDICAL JORGE VISIT SERV HIGH FOUNDATIO SEVERITY& THREAT [facility] UNIVERSIT - 3 3 Y [facility] 3 3 [facility] OFF[facility] 16297 ARTHRITIS ALEBRTO [facility] 3 3 CENTER T VISIT OF 25 [facility] UNIVERSIT - 3 3 Y [facility] EMERGENCY 11791 POPPY SANTA DEPT 3 3 EMERGENCY VISIT SERVICES HIGH SEVERITY& THREAT [facility] [place] - 3 3 [facility] [place] [facility] 3 [facility] 73158 A Candice LAZCANO OUTPATIEN 3 3 FILEMON SHAH T VISIT [facility] [place] - 3 3 [facility] OUT[facility] T EMERGENCY 52113 [place] [address] [facility] T VISIT HIGH/URGE NT SEVERITY EMERGENCY 59692 POPPY SANTA DEPT 3 3 EMERGENCY VISIT SERVICES HIGH SEVERITY& THREAT [facility] OFFICE 39724 ARTHRITIS ALBERTO RIT OUTPATIEN 3 3 CENTER T VISIT OF [address] [facility] OFFICE 50881 Avtar LAZCANO OUTPATIEN 3 3 FILEMON SHAH T VISIT [facility] 15 [facility] [place] - 3 3 [facility] OFFICE 26993 ARTHRITIS ALBERTO RIT OUTPATIEN 3 3 CENTER T VISIT OF 10 [facility] [place] - 3 3 [facility] [place] [facility] 3 3 [facility] OFF[facility] 20477 ARTHRITIS ALBERTO RIT OUTPATIEN 3 3 CENTER T VISIT OF 25 [facility] [place] - 3 3 [facility] 3 3 Y [facility] T OFFICE 05956 TARAS THOMPSON OUTPATIEN 3 3 MEDICAL JAM T VISIT SERV 40 [facility] [place] - 3 3 [facility] OUTPATIEN [facility] T EMERGENCY 43103 TARAS LANTIGUA DEPT 3 3 MEDICAL PATIENT ACCOUNTING REPRESENTATIVE VISIT SERV HIGH FOUNDATIO SEVERITY& THREAT [facility] UNIVERSIT - 3 3 Y INPATIENT HOSPITAL OFFICE 09017 TARAS GATES OUTPATIEN 3 3 MEDICAL YATACO T VISIT SERV ANG 25 [facility] UNIVERSIT - 2 3 Y INPATIENT HOSPITAL EMERGENCY 91452 POPPY LOPEZ DEPT 2 2 EMERGENCY VENUS VISIT SERVICES HIGH SEVERITY& THREAT [facility] EMERGENCY 86017 POPPY SANTA DEPT 2 2 EMERGENCY VISIT SERVICES HIGH SEVERITY& THREAT [facility] [place] [address] 2 N [facility] HOSPITA OFFICE 72528 CULBERTSO CULBERTSO OUTPATIEN 2 2 N KALYAN N KALYAN T VISIT 15 MINUTES OFFICE 06386 CULBERTSO CULBERTSO OUTPATIEN 1 1 N KALYAN N KALYAN T VISIT 15 [facility] UNIVERSIT - 1 1 Y [facility] - 1 1 Y [facility] UN[facility] - 0 0 Y [facility] OFFICE 01834 CULBERTSO CULBERTSO OUTPATIEN 0 0 N KALYAN N KALYAN T VISIT 15 MINUTES OFFICE 58393 TARAS MARTINEZ OUTPATIEN 0 0 MEDICAL KAMALA T VISIT SERV 15 [facility] EMERGENCY 44033 [place] 0 0 [facility] DEPARTMEN INC T VISIT MODERATE SEVERITY [facility] [place] - 0 0 [facility] OUTPATIEN [facility] T EMERGENCY 24442 POPPY MORRISSEY DEPT 0 0 EMERGENCY III TRISTA VISIT SERVICES HIGH SEVERITY& THREAT [facility] OFFICE 73165 TARAS MARTINEZ OUTPATIEN 0 0 MEDICAL KAMALA T VISIT SERV [facility] [place] [facility] 0 [facility] OUT[facility]EN [facility] T EMERGENCY 62873 [place] 0 0 [facility] DEPARTMEN INC T VISIT LOW/MODER SEVERITY OFFICE 31886 CULBERTSO [facility] OUTPATIEN 9 9 N, GEREMIAS DOUGHERTY VISIT 15 MINUTES [facility] - 9 9 N [facility]OSPITAL OFFICE 68943 CULBERTSO [facility] OUTPATIEN 9 9 N, GEREMIAS DOUGHERTY VISIT 15 MINUTES OFFICE 14779 CULBERTSO [facility] OUTPATIEN 9 9 N, GEREMIAS DOUGHERTY VISIT 25 MINUTES OFFICE 32468 CULBERTSO [facility]ERT[facility] OUTPATIEN 9 9 NGEREMIAS ROBERT T VISIT 15 MINUTES HOSPITAL UNIVERSIT - 9 9 Y [facility] UNIVERSIT - 9 9 Y [facility] OFFICE 89803 KAM ENCARNACION 9 9 MEDICAL TONO J ION SERV NEW/ESTAB FOUNDATIO PATIENT 40 MIN OFFICE 47532 [place] MAKSIM [facility] 9 9 [facility] NESHA CLEMONS T VISIT ORTHOPAED A 15 IC MINUTES [facility] UNIVERSIT - 9 9 Y [facility] UNIVERSIT - 8 8 Y [facility] OFFICE 75609 CULBERTSO [facility] 8 N, GEREMIAS DOUGHERTY VISIT 15 MINUTES [facility] - 8 8 N [facility] HOSPITAL OFFICE 41956 MAKSIM MAKSIM [facility] 8 8 IINESHA II, GLEN T VISIT A A 15 MINUTES
--- OUTSIDE RECORDS SUMMARY | 2016-09-28 15:23 | External Medical Summary Rpt ---
Author Author , Organization [employer] Address Unknown Phone Unavailable Care Team Providers Care Dixonac Operator Name Role Phone A Candice COLBERT [...] SOHEILA DEENA [facility] Unavailable Unavailable SERVICE, [facility] Unavailable Unavailable SERVICE, [facility] CAMILLE KET, CAMILLE KET Unavailable Unavailable GRZEGORZ OUT PATIENT THERAPIST, GRZEGORZ Unavailable Unavailable OUT PATIENT THERAPIST TITI JAG, TITI Unavailable Unavailable JAG [facility] [...] NAN JESSICA VENUS, JESSICA Unavailable Unavailable [facility] Unavailable Unavailable HOSPITA, [facility] Unavailable [facility]available [facility], [facility] CHR, [facility] Unavailable [facility]available [facility] Unavailable Unavailable INC, [facility] Unavailable [facility]available HOSPITAL P, [facility] P DUBOIS KAMALA, DUBOIS KAMALA Unavailable Unavailable RENA, MARIXA G, RENA, Unavailable Unavailable MARIXA G [facility] Un[facility], [facility] HARELY OSCAR, Unavailable Unavailable HARLEY OSCAR KILPELA JEA, [...] HOLDINGS, [facility], Unavailable Unavailable [facility] JUAN KAMALA, Unavailable Unavailable JUAN KAMALA TONO MARTINEZ, Unavailable Unavailable TONO MARTINEZ HAYWOOD MARION, HAYWOOD Unavailable Unavailable MARION JESICA JAM, JSEICA JAM Unavailable Unavailable TIAGO JR DWI, TIAGO Unavailable Unavailable JR DWI LUKINS TIERRA, LUKINS Unavailable Unavailable TIERRA [facility] Unavailable Unavailable SERVICES, [facility] MAKSIM II, NESHA A, Unavailable [...] SADIE GIRARD PRE, SHAJI Unavailable Unavailable PRE [facility], Unavailable Unavailable [facility] Unavailable Unavailable [facility] GERALD MINA, Unavailable Unavailable ALEJO STRICKLAND, [...] SERV PULMONARY FOUNDATIO FIBROSIS 7245 UNSPECIFIED 03-19-2013 [place] [facility] 08025 OTHER 03-19-2013 [facility] [place] [address] OBSTRUCTIVE 03-10-2013 [facility] APNEA MEDICAL EQUIPME 02820 OTHER 03-07-2013 [place] [facility]ES [facility] LUNG NOT INC ELSEWHERE CLASSIFIED 7242 LUMBAGO 03-06-2013 [facility] INC V571 OTHER 03-06-2013 [place] [facility] THERAPY INC 32574 OTHER 03-01-2013 [place] [facility] CONDITIONS SERV OF BRAIN FOUNDAT[facility] 7140 RHEUMATOID 03-01-2013 [place] [facility] ARTHRITIS SERV [facility] 7840 HEADACHE 03-01-2013 [place] [facility] 25726 DIARRHEA 03-01-2013 [place] [facility] 7930 NONSPECIFIC 03-01-2013 [place] [facility] ABN FNDNG SERV RAD & OTH FOUNDATIO EXM SKULL & HEAD E8889 UNSPECIFIED 03-01-2013 [place] [facility] FALL [facility] 84524 OTHER 02-28-2013 [place] [facility] CHRONIC SERV PAIN FOUNDAT[facility] 4019 UNSPECIFIED 02-28-2013 [place] [facility] ESSENTIAL SERV HYPERTENSIO FOUNDATIO N 37978 FEVER 02-28-2013 [place] [facility] UNSPECIFIED SERV FOUND[facility] 66178 OTHER 02-28-2013 [place] [facility] NONSPECIFIC SERV ABNORMAL FOUNDATIO FINDING OF LUNG FIELD 412 OLD 02-27-2013 [facility] INFARCTION 37085 CORONARY 02-27-2013 [facility] OSIS SOKAOGON CORONARY ARTERY 4829 UNSPECIFIED 02-27-2013 [facility] PNEUMONIA SERVICE 5184 UNSPECIFIED 02-27-2013 [place] [facility] ACUTE [facility] EDEMA OF FOUNDATIO LUNG 5849 ACUTE 02-27-2013 [facility] FAILURE UNSPECIFIED 72830 RHEUMATOID 02-27-2013 [facility] V4361 SHOULDER 02-27-2013 [place] [facility]INT SERV REPLACEMENT FOUNDATIO BY OTHER MEANS V462 DEPENDENCE 02-27-2013 [facility] FOR SUPPLEMENTA L OXYGEN 02991 OBSTRUCTIVE 02-26-2013 [facility] P WITH EXACERBATIO N V5869 LONG-TERM 02-20-2013 [facility] (CURRENT) CENTER OF USE OF LEXINGTO OTHER MEDICATIONS V6751 F/U EXAM 02-20-2013 [facility] FOLLOW CMPL [place] [facility] W/HIGH-RISK MED NEC 36700 COR 02-12-2013 [facility] UNSPEC TYPE VESSEL SOKAOGON/RAUL T 4940 BRONCHIECTA 01-31-2013 [place] [facility] SIS WITHOUT SERV ACUTE FOUNDATIO EXACERBATIO N 36769 IDIOPATHIC 01-31-2013 [facility] FIBROSIS SERVICES 7856 ENLARGEMENT 01-31-2013 [place] [facility] OF LYMPH SERV NODES FOUNDATIO 93493 SHORTNESS 01-31-2013 [place] [facility] OF BREATH SERV FOUNDAT[facility] 06584 OTHER 01-31-2013 [facility] RESPIRATORY AMBULANCE SERVICE COMPLICATIO NS 0529 VARICELLA 01-06-2013 A Candice PINZON MD PSC MENTION OF COMPLICATIO N 7862 COUGH 01-06-2013 A Candice COLBERT MD PSC 4660 ACUTE 11-06-2012 A Candice COLBERT BRONCHITIS PSC V5812 ENCOUNTER 09-25-2012 [facility] FOR CENTER OF ANTINEOPLAS LEXINGTO TIC IMMUNOTHERA PY 2859 UNSPECIFIED 08-31-2012 [facility] 4841 PNEUMONIA 08-31-2012 [place] [facility] IN SERV CYTOMEGALIC FOUNDATIO INCLUSION DISEASE 5168 OTH SPEC 08-31-2012 [place] [facility] ALVEOL&DEONNA SERV ETOALVEOL FOUNDATIO PNEUMONOPAT HIES 35949 NAUSEA WITH 08-02-2012 [place] [facility] VOMITING SERV F[facility] V1209 PERSONAL HX 08-02-2012 [place] [facility] OTH SERV INFECTIOUS& FOUNDATIO PARASITIC DISEASE 2724 OTHER AND 07-31-2012 [facility] HYPERLIPIDE ALEKSANDAR 5589 OTH&UNSPEC 07-31-2012 [place] [facility] NONINFECTIO SERV US FOUNDATIO GASTROENTER ITIS&COLITI S 98344 VOMITING 07-31-2012 [facility] 85093 ABDOMINAL 07-31-2012 [place] [facility] PAIN, SERV EPIGASTRIC FOUNDATIO 22700 SYSTEMIC 07-31-2012 [facility] Y RESPONSE SYNDROME UNSPEC V1269 PERSONAL 07-31-2012 [place] [facility] HISTORY SERV OTHER FOUNDATIO DISEASES RESPIRATORY SYS 514 PULMONARY 07-03-2012 [facility] [place] CONGESTION RADIOLOGY AND HYPOSTASIS 7295 PAIN IN 07-03-2012 JERRI ESPERANZA SOFT TISSUES OF LIMB 7823 EDEMA 07-03-2012 JERRI ESPERANZA 5119 UNSPECIFIED 07-01-2012 [facility] [place] PLEURAL RADIOLOGY EFFUSION 33257 OTHER 06-20-2012 [place] [facility] DISEASES OF SERV NASAL FOUNDATIO CAVITY AND SINUSES 5121 IATROGENIC 06-16-2012 [place] [facility] PNEUMOTHROA SERV X FOUNDATIO 07300 ACUTE AND 06-16-2012 [place] [facility] CHRONIC SERV RESPIRATORY FOUNDATIO FAILURE 27088 SEPTIC 06-16-2012 [place] [facility] SHOCK SERV [facility]AT[facility] 0785 CYTOMEGALOV 06-15-2012 [facility] DISEASE THE B 41358 CHEST PAIN 06-15-2012 P[facility]IVE UNSPECIFIED CARE CTR OF THE B 7850 UNSPECIFIED 06-11-2012 [place] [facility] SERV TACHYCARDIA FOUNDATIO 4279 UNSPECIFIED 05-17-2012 [place] [facility] CARDIAC SERV DYSRHYTHMIA FOUNDATIO 47805 ACUTE 05-17-2012 [place] [facility] RESPIRATORY SERV FAILURE FOUNDATIO 84276 OTHER 04-24-2012 [facility] BRUNILDA SEPTICEMIA 1124 CANDIDIASIS 04-24-2012 [facility] 5070 PNEUMONITIS 04-24-2012 [facility] INHALATION OF FOOD OR VOMITUS 5100 EMPYEMA 04-24-2012 [facility] FISTUL[facility] 5183 PULMONARY 04-22-2012 [facility] A IMAGING ASS 88021 REFLUX 08-03-2011 [facility] ESOPHAGITIS KALYAN 11563 OTHER 08-03-2011 [facility] SYMPTOMS [facility] INVOLVING DIGESTIVE SYSTEM OTHER 490 BRONCHITIS 07-13-2010 [facility] NOT [place] SPECIFIED ACUTE OR CHRONIC 18506 ASTHMA, 07-13-2010 [facility] UNSPECIFIED K[place]YAN , UNSPECIFIED STATUS 03673 PAIN IN 07-08-2010 [place] [facility], [facility] ANKLE AND FOOT 21697 DISORDER OF 07-08-2010 [place] [facility] BONE AND SERV CARTILAGE FOUNDATIO UNSPECIFIED V454 ARTHRODESIS 07-08-2010 [place] [facility] STATUS SERV F[facility] V5489 OTHER 07-08-2010 [facility] AFTERCARE V5409 OTH 06-17-2010 [place] [facility] AFTER[facility]ARE SERV INVOLVING FOUNDATIO INTERNAL FIXATION DEVICE V6700 FOLLOW-UP 06-01-2010 [place] [facility] EXAMINATION SERV FOLLOWING FOUNDATIO UNSPEC SURGERY 77359 PRIMARY 05-12-2010 [place] [facility] LOCALIZED SERV OSTEOARTHRO FOUNDATIO SIS ANKLE AND FOOT 84590 PAIN IN 05-12-2010 [place] [facility] JOINT, SERV LOWER LEG FOUNDATIO V0481 NEED 05-12-2010 [facility] VACCINATION &INOCULATIO N FLU V5849 OTHER 05-12-2010 [place] [facility] SPECIFIED SERV AFTERCARE FOUNDATIO FOLLOWING SURGERY 4659 ACUTE URIS 04-17-2010 [facility] OF KALYAN UNSPECIFIED SITE 21066 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 [place] [facility] RHEUMATISM SERV ANKLE AND FOUNDATIO FOOT 09853 PAIN IN 04-02-2010 [facility] JOINT, AMERIC UPPER ARM HOLDING 49269 OBST 03-12-2010 [facility] P W/ACUTE BRONCHITIS 42037 PAINFUL 03-12-2010 [facility]ERGENCY SERVICES 91648 UNSPECIFIED 05-20-2009 [facility] BANERJEE ARTHROPATHY SITE UNSPECIFIED 4011 ESSENTIAL 05-09-2009 [facility] HYPERTENSI[facility] PH[facility] N, BENIGN PSC 37533 OTHER CHEST 05-09-2009 [facility] PAIN GEREMIAS V7651 SPECIAL 05-09-2009 [facility] SCREENING GEREMIAS FOR MALIGNANT NEOPLASMS COLON 7808 GENERALIZED 05-05-2009 [facility] BANERJEE HYPERHIDROS IS 5960 BLADDER 03-18-2009 [facility] [place] INC OBSTRUCTION 2720 PURE 03-17-2009 [facility] HYPERCHOLES GEREMIAS TEROLEMIA 99095 ESOPHAGEAL 03-17-2009 [facility] REFLUX GEREMIAS 10163 PRIMARY 03-17-2009 [facility] LOCALIZED GEREMIAS OSTEOARTHRO SIS OTH SPEC SITES 03608 [facility] 11-26-2008 [facility] INT ORTHOPEDIC DEVC IMPL&GFT 84939 OT COMPS 11-26-2008 [place] [facility] DUE OTH SERV INTRL FOUNDATIO ORTHOPED DEVICE IMPL&GFT 7271 BUNION 11-11-2008 [facility] 96983 NONSPECIFIC 11-11-2008 [facility] ELECTROCARD IOGRAM V4589 OTHER 11-11-2008 [facility] L STATUS OTHER 68218 EFFUSION OF 09-19-2008 [facility]G [facility] JOINT ORTHOPAEDIC SURGEONS PSC 61568 VILLONODULA 09-19-2008 [facility] H SYNOVITIS, ORTHOPAEDIC LOWER LEG SURGEONS PSC 5185 PULMONARY 05-16-2008 [facility] INSUFFICI EMERGENCY CY FOLLOW SERVICES [facility] SURGERY 32960 UNSPECIFIED 05-15-2008 [place] [facility] [place]NOVIT[place] [address] EXTRINSIC 11-02-2007 PUL[facility] DOSE ASTHMA, PHARMACY UNSPECIFIED 31825 OSTEOARTHRO 07-13-2007 MAKSIM II, SIS UNSPEC NESHA A WHETHER GEN/LOC ANK&FOOT 91733 TENOSYNOVIT 07-13-2007 MAKSIM II, IS OF FOOT NESHA A AND ANKLE Procedures Procedure DOS Code Location Performer Comment PRTBLE E0431 A[facility]LIN AYLIN GASEOUS 4 HOME HOME O2 SYS MEDICAL MEDICAL RENT; EQUIPME EQUIPME FLWMTR HUMIDFR&M ASK O2 CONC 1 E1390 [facility]LIN VIER[place] 4 HOME HOME 85%/>02 MEDICAL MEDICAL CONC AT EQUIPME EQUIPME PRSC FLW RATE SPMTRY 22390 TARAS BENSADOUN W/VC 3 MEDICAL NUVIA EXPIRATOR SERV Y RACHEL FOUNDATIO W/WO MXML VOL VNTJ PULMONARY 93102 [facility] STRESS 3 Y Y TESTING [facility] SIMPLE O2 CONC 1 E1390 [place]LIN VIER[place] 3 HOME HOME 85%/>02 MEDICAL MEDICAL CONC AT EQUIPME EQUIPME PRSC FLW RATE PRTBLE E0431 A[facility]LIN VIERA GASEOUS 3 HOME HOME O2 SYS MEDICAL MEDICAL RENT; EQUIPME EQUIPME FLWMTR HUMIDFR&M ASK NEBULIZER E0570 AYLIN VEIRA WITH 3 HOME HOME COMPRESSO MEDICAL MEDICAL R EQUIPME EQUIPME THERAPEUT 40888 [place] [place] PX 1/> 3 [facility] AREAS INC INC EACH 15 MIN EXERCISES E-STIM G0283 [place] [facility] 1/> AREAS 3 [facility] OTH THAN INC INC WND CARE PART TX PLAN APPLICATI 42715 [place] [facility] ON 3 [facility] MODALITY INC INC 1/> AREAS HOT/COLD PACKS E-STIM G0283 [place] [facility] 1/> AREAS 3 [facility] OTH THAN INC INC WND CARE PART TX PLAN THERAPEUT 00633 [place] P[place] 1/> 3 [facility]OS[facility] AREAS INC INC EACH 15 MIN EXERCISES CONTINUOU E0601 A[facility]LIN VIERA S 3 HOME HOME POSITIVE MEDICAL MEDICAL AIRWAY EQUIPME EQUIPME PRESSURE DEVICE E-STIM G0283 [place] [facility] 1/> AREAS 3 [facility]OS[facility] OTH THAN INC INC WND CARE PART TX PLAN THERAPEUT 39069 [place] [facility] [place] PX 1/> 3 [facility] AREAS INC INC EACH 15 MIN EXERCISES SMR PRIM 46092 [place] [facility] SRC 3 [facility] GRAM/GIEM INC INC SA STAIN BCT FUNGI/LEONIDES L SPUTUM 24430 [place] [facility] OBTAINING 3 [facility] SPEC INC INC AEROSOL INDUCED TX SPX CUL BACT 06608 [place] [facility] XCPT 3 [facility] URINE INC INC BLOOD/STO OL AEROBIC ISOL E-STIM G0283 [place] [facility] 1/> AREAS 3 [facility] OTH THAN INC INC WND CARE PART TX PLAN THERAPEUT 58114 [place] [facility] [place] PX 1/> 3 [facility] AREAS INC INC EACH 15 MIN EXERCISES SBSQ 17224 [facility] 3 MEDICAL PRE CARE/DAY SERV 25 FOUNDATIO MINUTES RADIOLOGI 71406 [place] DUBOIS KAMALA C EXAM 3 MEDICAL CHEST 2 SERV VIEWS FOUNDATIO FRONTAL&[place] [address] [place] ARINA MCCOY HEAD/BRAI 3 MEDICAL N W/O SERV CONTRAST FOUNDATIO MATERIAL RADIOLOGI 34694 [place] [facility] C EXAM 3 MEDICAL CHEST 2 SERV VIEWS FOUNDATIO FRONTAL&L ATERAL SBSQ 52978 [facility] 3 MEDICAL PRE CARE/DAY SERV 25 [place] [address] [place] [facility] INFUSION 3 [facility] THERAPY INC INC PROPHYLAX IS/DX EA HOUR AMB A0427 [facility] SERVICE 3 AMBULANCE AMBULANCE ALS SERVICE SERVICE EMERGENCY TRANSP[place] LEV[place] 1 [place] [address] [place] [facility] INFUSION 3 [facility] THERAPY/P INC INC ROPHYLAXI S /DX 1ST TO 1 HR GROUND A0425 [facility] MILEAGE 3 AMBULANCE AMBULANCE [place] [address] [place] [facility] INFUSION 3 [facility] THER INC INC PROPH ADDL SEQUENTIA L TO 1 HR RADIOLOGI 53386 [place] AYOOB AND Candice 3 MEDICAL EXAMINATI SERV ON CHEST FOUNDATIO [place] FRONTAL CUL BACT 32533 [place] STEVENSON XCPT 3 [facility] HOS[facility] URINE INC INC BLOOD/STO OL AEROBIC ISOL CUL BACT 32852 [place] [facility] AEROBIC 3 [facility] ADDL INC INC METHS DEFINITIV E EA ISOL SMR PRIM 07578 [place] [facility] SRC 3 [facility] GRAM/GIEM INC INC SA STAIN BCT FUNGI/LEONIDES L SUSCEPTIB 22929 [place] [facility] LTY STDY 3 [facility] ANTIMICRB INC INC IAL MICRO/AGA R DILUTJ INITIAL 28396 [facility] 3 MEDICAL PRE CARE/DAY SERV 70 FOUNDATIO MINUTES IAADI 67765 [place] [facility] INFLUENZA 3 [facility] B VIRUS INC INC IAADI 29443 [place] [facility] INFFLUENZ 3 [facility] A A VIRUS INC INC THERAPEUT 11262 [place] [facility] PX 1/> 3 [facility] AREAS INC INC EACH 15 MIN EXERCISES ECG 42733 [place] [facility] ROUTINE 3 [facility] ECG INC INC W/LEAST 12 LDS TRCG ONLY W/O I&R CULTURE 02696 [place] [facility] BACTERIAL 3 [facility] BLOOD INC INC AEROBIC W/ID ISOLATES CREATINE 88354 [place] [facility] KINASE 3 [facility] TOTAL INC INC PHYSICAL 37345 [place] [facility] THERAPY 3 [facility] EVALUATIO INC INC N BLOOD 61277 [place] [facility] COUNT 3 [facility] COMPLETE INC INC AUTO&AUTO DIFRNTL WBC RADIOLOGI 96959 [place] [facility] C 3 [facility] EXAMINATI INC INC [place] [address] [place] TROPONIN 3 [facility] QUANTITAT INC INC [place] CREATINE 71173 [facility] KINASE MB 3 [facility] FRACTION INC INC ONLY ECG 88684 [place] [facility]ECERRIL ROUTINE 3 [facility] W/LEAST P 12 LDS I&R ONLY CRITICAL 20474 [place] [facility] CARE 3 [facility] ILL/INJUR INC INC ED PATIENT INIT 30-74 MIN E-STIM G0283 [place] [facility] 1/> AREAS 3 [facility] OTH THAN INC INC WND CARE PART TX PLAN BLOOD 90617 [place] [facility] GASES ANY 3 [facility] INC INC COMBINATI ON PH PCO2 PO2 CO2 HCO3 BASIC 77213 [place] [facility] METABOLIC 3 [facility] PANEL INC INC CALCIUM TOTAL COMPREHEN 37119 [facility] SIVE 3 [facility]OL[facility]INGS PANEL COLLECTIO 48672 [facility] N VENOUS 3 [facility] BLOOD [facility] HOLDINGS VENIPUNCT URE BLOOD 14490 [facility] COUNT 3 [facility] [place] COMPLETE [facility]INGS HOLDINGS AUTOMATED C-REACTIV 98569 [facility] E PROTEIN 3 [...] COMPRESSO MEDICAL MEDICAL R EQUIPME EQUIPME SPMTRY 75542 [place] K[facility] W/VC 3 MEDICAL EXPIRATOR SERV Y RACHEL FOUNDATIO W/[place] [address] [place] DIFFUSING 3 MEDICAL CAPACITY SERV FOUNDATIO GASES 77721 [facility] BLOOD PH 3 Y Y DIRECT HOSPITAL [facility] ANSHU XCPT PULSE OXIMITRY PULMONARY 79540 [place] STRESS 3 MEDICAL TESTING SERV SIMPLE FOUNDATIO ARTERIAL 11526 [facility] PUNCTURE 3 Y Y WITHDRAWA [facility] L BLOOD DX CT THORAX 72805 [facility] W/O 3 Y Y CONTRAST HOSPITAL [facility] MATERIAL PLETHYSMO 45709 [place] GRAPHY 3 MEDICAL MEDICAL LUNG SERV SERV VOLUMES FOUNDATIO FOUNDATIO W/WO AIRWAY RESIST CONTINUOU E0601 AYLIN VIERA S 3 HOME HOME POSITIVE MEDICAL MEDICAL AIRWAY EQUIPME EQUIPME PRESSURE DEVICE [facility] 94212 [place] SEETHARMR DISCHARGE 3 MEDICAL AJU HAZEL DAY SERV MANAGEMEN FOUNDATIO T 30 MIN/< ECG 48282 [place] [facility] ROUTINE 3 [facility] ECG INC INC W/LEAST 12 LDS TRCG ONLY W/O I&R THER 30317 [place] [facility] PROPH/DX 3 [facility] NJX IV INC INC PUSH SINGLE/1S T SBST/DRUG SUSCEPTIB 89600 [place] [facility] LTY STDY 3 [facility] ANTIMICRB INC INC IAL MICRO/AGA R DILUTJ CULTURE 42465 [place] [facility] BACTERIAL 3 [facility] BLOOD INC INC AEROBIC W/ID ISOLATES SMR PRIM 23337 [place] [facility] SRC 3 [facility] GRAM/GIEM INC INC SA STAIN BCT FUNGI/[place] [address] [facility] ONTIVEROS ANGIOGRAP 3 MEDICAL HY CHEST SERV W/CONTRAS FOUNDATIO T/NONCONT RAST ECG 48601 [place] ORDOÑEZ JR ROUTINE 3 [facility] W/LEAST P 12 LDS I&R ONLY BLOOD 98291 [place] [facility] COUNT 3 [facility] COMPLETE INC INC AUTO&AUTO DIFRNTL WBC CUL BACT 95870 [place] [facility] AEROBIC 3 [facility] ADDL INC INC METHS DEFINITIV E EA ISOL CUL BACT 82037 [place] [facility] XCPT 3 [facility] URINE INC INC BLOOD/STO OL AEROBIC ISOL RADIOLOGI 11364 [place] [facility] C 3 [facility] EXAMINATI INC INC ON CHEST SING[place]IEW FRONTAL AMBULANCE A0429 [facility] SERVICE 3 AMBULANCE AMBULANCE BLS SERVICE SERVICE EMERGENCY TRANSPORT PRESSURIZ 96641 [place] [facility] ED/NONPRE 3 [facility] SSURIZED INC INC INHALATIO N TREATMENT RADIOLOGI 07799 [facility] ONTIVEROS C EXAM 3 MEDICAL CHEST 2 SERV VIEWS FOUNDATIO FRONTAL&L ATERAL GROUND A0425 [facility]ULANCE AMBULANCE PER SERVICE SERVICE STATUTE MILE COMPREHEN 14399 [place] SIVE 3 [facility] METABOLIC INC INC PANEL ADMN SET A7003 YOUR YOUR SM VOL 3 PHARMACY PHARMACY NONFDAY [facility] PNEUMAT NEBULIZR DISPBL ALBUTEROL J7620 YOUR [...] RENT; EQUIPME EQUIPME FLWMTR HUMIDFR&M ASK RADIOLOGI 94054 [place] [facility] C EXAM 3 [facility] CHEST 2 INC INC VIEWS FRONTAL&L ATERAL CONTINUOU E0601 AYLIN VIERA S 3 HOME HOME POSITIVE MEDICAL MEDICAL AIRWAY EQUIPME EQUIPME PRESSURE DEVICE 3D 02440 [place] [facility] RENDERING 3 [facility] W/INTERP INC INC & POSTPROCE SS SUPERVISI ON CREATINE 00777 [place] [facility] KINASE 3 [facility]OS[facility] TOTAL INC INC BLOOD 00939 [place] [facility] COUNT 3 [facility]OS[facility] COMPLETE INC INC AUTO&AUTO DIFRNTL WBC RHYTHM 97491 [place] [facility] ECG 1-3 3 [facility] LEADS INC INC TRACING ONLY W/O I&[place] [address] [place] [facility] TROPONIN 3 [facility] [address] [place] [facility] HEAD/BRAI 3 [facility] N W/O INC INC CONTRAST MATERIAL CREATINE 32521 [place] [facility] KINASE MB 3 [facility] FRACTION INC INC ONLY COMPREHEN 98256 [facility] [facility] SIVE 3 [facility] METABOLIC INC INC PANEL ECG 79595 [place] ORDOÑEZ JR ROUTINE 3 [facility] W/LEAST P 12 LDS I&R ONLY ECG 68068 [place] [facility] ROUTINE 3 [facility] ECG INC INC W/LEAST 12 LDS [...] PER SESS TO 2 PER DAY COLLECTIO 29923 [facility] HEIDI N VENOUS 3 AMERIC AMER[facility] BLOOD HOLDING HOLDING VENIPUNCT URE COMPREHEN 99117 [facility] SIVE 3 [facility] MET[employer]OLIC [employer]ING HOLDING PANEL C-REACTIV 72569 [facility] E PROTEIN 3 [facility] [employer] HOLDING BLOOD 96528 [facility] COUNT 3 AMERIC [...] PER SESS TO 2 PER DAY POLYSOM 76495 [facility] 6/>YRS 3 MEM HOS[facility] MEM [...] AT EQUIPME EQUIPME PRSC FLW RATE BRNCDILAT 23698 [place] [facility] RSPSE 3 [facility] SPMTRY INC INC PRE&POST- BRNCDILAT ADMN GAS 48347 [place] [facility] DILUT/WAS 3 [facility] HOUT LUNG INC INC VOL W/WO DISTRIB VENT&V NEBULIZER E0570 AYLIN VIERA WITH 3 HOME HOME COMPRESSO MEDICAL [place] [address] [facility] FOLIC 3 Y Y ACID RBC [facility] COLLECTIO 72320 [facility] VEN[facility] 3 Y Y [facility]LOOD [facility] VENIPUNCT URE COMPREHEN 85360 [facility] SIVE 3 Y Y METABOLIC [facility] PANEL RADIOLOGI 09570 [facility] C EXAM 3 Y Y CHEST 2 [facility] VIEWS FRONTAL&L ATERAL IRON 51151 [facility] BINDING 3 Y Y [facility] PREALBUMI 92794 [facility] UNIVERS N 3 Y Y HOSPITAL HOSPITAL BLOOD 29732 [facility] COUNT 3 Y Y COMPLETE [facility] AUTO&AUTO DIFRNTL WBC RHEUMATOI 06031 [facility] D FACTOR 3 Y Y QUANTITAT [facility] COURTNEY ANTINUCLE 00446 [facility] LAB HEIDI AR 3 Y [facility] [place] FLUORESCE 14566 [facility] NT 3 Y Y NONNFCT [facility] AGT ANTB SCREEN EA ANTIBODY CYANOCOBA 18127 [facility] CLARISSE 3 Y Y VITAMIN [facility] STANDARD K0001 AYLIN VIERA WHEELCHAI 3 HOME [...] [facility] R EQUIPME EQUIPME POLYSOM 85977 [place] 6/>YRS 3 [facility] SLEEP INC INC W/CPAP 4/> ADDL JOSE A [facility] 69386 [facility] 3 MEDICAL JAG DAY SERV MANAGEMEN FOUNDATIO T 30 MIN/< SBSQ 46460 [facility] 3 MEDICAL JAG CARE/DAY SERV 25 FOUNDATIO MINUTES RADEX ABD 43649 [place] DISANTIS COMPL 3 MEDICAL SIDDHARTHA AQT ABD SERV W/S/E/D FOUNDATIO VIEWS 1 VIEW CH RADEX ABD 35733 [place] JESICA JAM COMPL 3 MEDICAL AQT ABD SERV W/S/E/D FOUNDATIO VIEWS 1 VIEW [facility] [address] [place] SOHEILA ABDOMINAL 3 MEDICAL DEENA REAL SERV TIME FOUNDATIO W/IMAGE LIMITED INITIAL 49788 [facility] 3 Y OF MARION CARE/DAY [place] 70 INTER MINUTES FULL FACE A7030 AYLIN VIERA MASK 3 HOME HOME USED MEDICAL MEDICAL W/POS EQUIPME EQUIPME ARWAY PRESS DEVICE EA STANDARD K0001 YALIN VIERA WHEELCHAI 3 HOME HOME R MEDICAL [...] MEDICAL ADJUSTABL EQUIPME EQUIPME E/FIXED HEIGHT DUP-SCAN 34629 JERRI JERRI XTR VEINS 3 ESPERANZA ESPERANZA COMPLETE BILATERAL STUDY RADIOLOGI 39502 [facility] [place] KOSTELIC C EXAM 3 RADIOLOGY MONTSERRAT CHEST 2 VIEWS FRONTAL&L ATERAL RADIOLOGI 91413 [facility] [place] NOEL C EXAM 3 RADIOLOGY GODFREY CHEST 2 VIEWS FRONTAL&L ATERAL MRI BRAIN 78911 [place] LUKINS BRAIN 3 MEDICAL TIERRA STEM W/O SERV CONTRAST FOUNDATIO MATERIAL SBSQ 22368 [facility]DAY CTR OF 15 THE B MINUTES BRCHRISTIANACARE [address]304 [place] INCL 3 MEDICAL OSCAR FLUOR SERV GDNCE DX FOUNDATIO W/CELL WASHG SPX SBSQ 76130 [facility] 3 E CARE CARE/DAY CTR OF 25 THE B MINUTES CLOSED 3324 [facility] BIOPSY OF 3 Y Y BRONCHUS [facility] VENOUS 3893 [facility] CATHETERI 3 Y Y [facility] NOT ELSEWHERE CLASSIFIE D ECG 91649 TARAS NEVAREZ CHI ROUTINE 3 MEDICAL ECG SERV W/LEAST FOUNDATIO 12 LDS I&R ONLY ECG 91373 TARAS HU ROUTINE 3 MEDICAL NAN ECG SERV W/LEAST FOUNDATIO 12 LDS I&R ONLY CONTINUOU E0601 AYLIN VIERA S 2 HOME HOME POSITIVE MEDICAL MEDICAL AIRWAY EQUIPME EQUIPME PRESSURE DEVICE STANDARD K0001 AYLIN ABARCARELL WHEELCHAI 2 HOME HOME R MEDICAL MEDICAL EQUIPME EQUIPME THORACOSC 3320 [facility] [place] LUNG 2 Y Y BIOPSY [facility] ECG 69714 TARAS NEVAREZ CHI ROUTINE 2 MEDICAL ECG SERV W/LEAST FOUNDATIO 12 LDS I&R ONLY ECG 86239 TARAS ROSENBERG ROUTINE 2 MEDICAL ECG SERV W/LEAST FOUNDATIO 12 LDS I&R ONLY ECG 29482 TARAS NEVAREZ CHI ROUTINE 2 MEDICAL ECG SERV W/LEAST FOUNDATIO 12 LDS I&R ONLY ECG 90785 TARAS HU ROUTINE 2 MEDICAL NAN ECG SERV W/LEAST FOUNDATIO 12 LDS I&R ONLY CONT 9671 [facility] 2 Y Y [facility] < 96 CONSECUTI VE HOURS INSERTION 9604 [facility] 2 Y Y [facility] EAL TUBE RADIOLOGI 05462 [place] 2 MEDICAL TIERRA EXAMINATI IMAGING ON CHEST ASS SINGLE VIEW FRONTAL RADIOLOGI 17133 [facility] 2 MEDICAL TIERRA EXAMINATI IMAGING ON [...] IPRATROPI UM BROM TO 0.5 MG RADIOLOGI 30552 [place] DAW[place] C EXAM 2 MEDICAL TIERRA CHEST 2 IMAGING VIEWS ASS FRONTAL&L ATERAL ECG 12003 POPPY JESSICA ROUTINE 2 EMERGENCY VENUS ECG SERVICES W/LEAST 12 LDS I&R ONLY BLOOD 70280 [facility] OCCULT 2 N N PEROXIDAS COMMUNITY COMMUNITY E ACTV HOSPITA HOSPITA QUAL FECES 1-3 SPEC OVA&CHAD 34414 [facility] ITES 2 N N DIRECT COMMUNITY COMMUNITY SMEARS HOSPITA HOSPITA CONCENTRA TION & ID SMR PRIM 50563 [facility] SRC 2 N N GRAM/GIEM COMMUNITY COMMUNITY SA STAIN HOSPITA HOSPITA BCT FUNGI/LEONIDES L SMR PRIM 92435 [facility] SRC CPLX 2 N N SPEC COMMUNITY COMMUNITY STAIN HOSPITA HOSPITA OVA&CHAD ITS BLOOD 99783 [facility]ERT[facility] CULBERT[facility] OCCULT 2 N KALYAN N KALYAN PEROXIDAS E ACTV QUAL FECES 1 DETER COMPREHEN 62339 LAB [facility]I LAB HEIDI SIVE 2 AMERIC AMERIC METABOLIC HOLDING HOLDING PANEL COLLECTIO 65568 LAB [facility]I LAB HEIDI N VENOUS 2 AMERIC AMERIC BLOOD HOLDING HOLDING VENIPUNCT URE C-REACTIV 78372 LAB HE[facility] LAB HEIDI E PROTEIN 2 AMERIC AMERIC HOLDING HOLDING BLOOD 74891 LAB HE[facility] LAB HEIDI COUNT 2 AMERIC AMERIC COMPLETE HOLDING HOLDING AUTOMATED BLOOD 64233 LAB HE[facility]I LAB HEIDI COUNT 1 AMERIC AMERIC COMPLETE HOLDING HOLDING AUTOMATED C-REACTIV 04188 LAB HE[facility]I LAB HEIDI E PROTEIN 1 AMERIC [employer] HOLDING HOLDING COLLECTIO 88467 LAB HE[facility]I LAB HEIDI N VENOUS 1 AMERIC AMERIC BLOOD HOLDING HOLDING VENIPUNCT URE COMPREHEN 92397 LAB HE[facility] LAB HEIDI SIVE 1 [employer]IC [employer] METABOLIC HOLDING HOLDING PANEL RADEX 25212 [facility] ANKLE 1 Y Y COMPLETE [facility]OSPITAL HOSPITAL MINIMUM 3 VIEWS WALKING L4360 [employer] BOOT 1 PNEUMATC &/ VACUUM PREFAB CUSTM FIT COLLECTIO 83467 [facility] N VENOUS 1 [employer] [facility] BLOOD VENIPUNCT URE LIPID 43543 [facility] PANEL 1 [place] [facility] [place] INC TRANSFERA 70616 [facility] SE 1 [place] ASPARTATE AMINO AST SGOT APPLICATI 69465 [place] ON SHORT 1 MEDICAL MEDICAL LEG CAST SERV SERV WALKING/A FOUNDATIO FOUNDATIO MBULATORY RADIOLOGI 95996 [facility] 1 Y Y [facility] ON FOOT 2 VIEWS CAST Q4038 [place] JUAN SUPPLIES 1 MEDICAL KAM[place] SHORT LEG SERV CAST FOUNDATIO ADULT FIBERGLAS S CAST Q4038 [place] JUAN SUPPLIES 1 MEDICAL [place] SHORT LEG SERV CAST FOUNDATIO ADULT FIBERGLAS S APPLICATI 37273 [place] ON SHORT 1 MEDICAL MEDICAL LEG CAST SERV SERV BELOW FOUNDATIO FOUNDATIO KNEE-TOE [facility] G0378 [facility] OBSERVATI 0 Y Y ON HOSPITAL HOSPITAL SERVICE PER HOUR PHYSICAL 32294 [facility] THERAPY 0 Y Y EVALUATIO [facility] N 20822 [place] GER[place] GUIDANCE 0 MEDICAL JUS NEEDLE SERV PLACEMENT FOUNDATIO IMG S&I BONE 66293 [facility] GRAFT ANY 0 Y Y DONOR HOSPITAL HOSPITAL AREA MAJOR/LAR GE FLUOROSCO 60466 [facility] PY SPX >1 0 Y Y HOUR HOSPITAL HOSPITAL PHYS/QHP TIME INJECTION 16138 [facility] MEDICAL JUS ANESTHETI SERV C AGENT FOUNDATIO SCIATIC NRV SINGLE INJECTION 12933 [facility] MEDICAL JUS ANESTHETI SERV C AGENT FOUNDATIO FEMORAL NERVE SINGLE ANESTHESI 36336 [place] GERALD A ON BONY 0 MEDICAL JUS PELVIS SERV FOUNDATIO ARTHRODES 20479 [facility] 0 Y Y SUBTALAR [facility]OSPITAL SMR PRIM 89330 LAB [facility] LAB HEIDI SRC 0 AMERIC AMERIC GRAM/GIEM HOLDING HOLDING SA STAIN BCT FUNGI/LEONIDES L CUL BACT 04848 LAB HE[facility]I LAB HEIDI XCPT 0 AMERIC AMERIC URINE HOLDING HOLDING BLOOD/STO OL AEROBIC ISOL CULTURE 23033 LAB HE[facility]I LAB HEIDI BACTERIAL 0 AMERIC AMERIC ANY HOLDING HOLDING SOURCE ANAEROBIC ISO&ID RADIOLOGI 05684 [place] DA[place] C 0 MEDICAL TIERRA EXAMINATI IMAGING ON CHEST ASS SINGLE VIEW FRONTAL BLOOD 36017 [place] COUNT 0 [facility] COMPLETE INC INC AUTO&[place] [address] [place] STEVEN[place] TROPONIN 0 [facility] QUANTITAT INC INC COURTNEY THER 75462 [place] STEVEN[place] PROPH/DX 0 [facility] NJX IV INC INC PUSH SINGLE/1S T SBST/DRUG CREATINE 50473 [facility] COLEMAN KINASE 0 [facility] TOTAL INC INC BASIC 20130 [facility] METABOLIC 0 [facility] PANEL INC INC CALCIUM TOTAL PRESSURIZ 47527 [place] ED/NONPRE 0 [facility] SSURIZED INC INC INHALATIO N TREATMENT CREATINE 66505 [place] COLEMAN KINASE MB 0 [facility] FRACTION INC INC ONLY ECG 83878 POPPY MORRISSEY ROUTINE 0 EMERGENCY III TRISTA ECG SERVICES W/LEAST 12 LDS I&R ONLY ECG 04701 [place] ROUTINE 0 [facility] ECG INC INC W/LEAST 12 LDS TRCG ONLY W/O I&R DUP-SCAN 69771 [place] XTR VEINS 0 [facility] INC INC UNILATERA L/LIMITED STUDY 3D 24817 [place] RENDERING 0 [facility] INC INC W/INTERP& POSTPROC DIFF WORK STATION CT LOWER 34572 [place] [facility] EXTREMITY 0 [facility] W/O INC INC CONTRAST MATERIAL INJECTION J1040 MONICA ANDERSON 9 N, GEREMIAS DOUGHERTY METHYLPRE DNISOLONE ACETATE 80 MG CV STRS 24417 MONICA ANDERSON TST 9 N, GEREMIAS DOUGHERTY XERS&/OR RX CONT ECG I&R ONLY TECHNETIU A9500 [facility] TC-99M 9 N N [facility] PER [facility] HOSP[facility] STUDY DOSE MYOCRD 10564 [facility] PRFUJ STD 9 N N [facility] HOSPITAL QUAL/RENEE STD MYOCRD 17005 [facility] PRFUJ STD 9 N N EJEC FXJ [facility] BLOOD 51429 MONICA ANDERSON OCCULT 9 N, GEREMIAS DOUGHERTY PEROXIDAS E ACTV QUAL FECES 1 DETER MYOCRD 70812 [facility] PRFUJ IMG 9 N N TOMOG [facility] SPECT [facility] ST[facility] CV [facility]S 45979 MONICA ANDERSON TST 9 N, GEREMIAS DOUGHERTY XERS&/OR RX CONT ECG W/O I&R CV STRS 39796 [facility] TST 9 N N XERS&/OR [facility] RX CONT [facility] [place] [place] [address] [facility] IRON 9 [facility] COLLECTIO 33456 [facility] N VENOUS 9 [facility] BLOOD VENIPUNCT URE IRON 68855 [facility] BINDING 9 [facility] CAPACITY COLLECTIO 07524 [facility] N VENOUS 9 [facility] BLOOD VENIPUNCT URE BLOOD 32226 [facility] COUNT 9 [facility] COMPLETE AUTO&AUTO DIFRNTL WBC INFLUENZA G9141 MONICA ANDERSON A H1N1 9 N, GEREMIAS DOUGHERTY IMMUNIZAT ION ADMINISTR ATION PWR E2365 ALLIED ALLIED WHLCHAIR 9 HOME HOME ACSS U-1 MEDICAL, MEDICAL, SEALED INC. INC. LEAD ACID BATTRY EA REPR/SRVC K0739 ALLIED ALLIED DME NOT 9 HOME HOME O2 RQR MEDICAL, MEDICAL, TECH INC. INC. CMPNT PER 15 MINS SUSCEPTIB 63670 LAB HE[facility]I [facility] HEIDI LTY STDY 9 AMERIC AMERIC ANTIMICRB HOLDING HOLDING IAL MICRO/AGA R DILUTJ SMR PRIM 13815 LAB [facility]I LAB HEIDI SRC 9 AMERIC AMERIC GRAM/GIEM HOLDING HOLDING SA STAIN BCT FUNGI/LEONIDES L CUL BACT 69743 LAB HE[facility]I LAB HEIDI XCPT 9 AMERIC AMERIC URINE HOLDING HOLDING BLOOD/STO OL AEROBIC ISOL CULTURE 04093 LAB HEIDI LAB HEIDI BACTERIAL 9 AMERIC AMERIC ANY HOLDING HOLDING SOURCE ANAEROBIC ISO&ID LIPID 18838 [facility] PANEL 9 [facility] COLLECTIO 49836 [facility] N VENOUS 9 [facility] BLOOD VENIPUNCT URE COMPREHEN 22291 [facility] SIVE 9 [facility] [place] [address] [facility] PROSTATE 9 [facility] SPECIFIC ANTIGEN TOTAL INJECTION J2175 [facility] 9 Y Y MEPERIDIN [facility] E HCL PER 100 MG RINGERS J7120 [facility] LACTATE 9 Y Y INFUSION [facility] UP TO 1000 CC FLUOROSCO 48529 [facility] PY SPX >1 9 Y Y HOUR [facility] PHYS/QHP TIME CUL BACT 68447 [facility] XCPT 9 Y Y URINE HOSPITAL [facility] BLOOD/STO OL AEROBIC ISOL INJECTION J3010 [facility] FENTANYL 9 Y Y [facility] 0.1 MG INJECTION J0690 [facility] 9 Y Y CEFAZOLIN [facility] SODIUM 500 MG INJECTION J2270 [facility] MORPHINE 9 Y Y SULFATE [facility]OSPITAL UP TO 10 MG SMR PRIM 19596 [facility] SRC 9 Y Y GRAM/GIEM [facility] SA STAIN BCT FUNGI/LEONIDES L REMOVAL 73525 [facility] IMPLANT 9 Y [place] [address] [facility] SURG 9 Y Y PATHOLOGY [facility] GROSS EXAMINATI ON ONLY BLOOD 16009 [facility] COUNT 9 Y Y COMPLETE HOSPITAL HOSPITAL AUTOMATED COLLECTIO 44629 [facility] N VENOUS 9 Y Y BLOOD [facility] HOSPITAL VENIPUNCT URE RADEX 38367 [facility] FOOT 9 Y Y COMPLETE [facility] MINIMUM 3 VIEWS ECG 40375 TARAS CHASE, ROUTINE 9 MEDICAL MARIXA G ECG SERV W/LEAST FOUNDATIO 12 LDS I&R ONLY BASIC 69931 [facility] METABOLIC 9 Y Y PANEL [facility] CALCIUM TOTAL ECG 60934 [facility] ROUTINE 9 Y Y ECG [facility] W/LEAST 12 LDS TRCG ONLY W/O I&R CELL 34682 [facility] COUNT 9 Y Y MIS BODY [facility] FLUIDS W/DIFFERE NTIAL COUNT COLLECTIO 00059 [facility] N VENOUS 9 Y Y BLOOD [facility] VENIPUNCT URE ARTHROCEN 15255 COMMONCAROLAA MAKSIM TESIS 9 LTH II, NESHA ASPIR&/IN ORTHOPAED A J MAJOR IC JT/BURSA SURGEONS W/O US PSC CUL BACT 78175 [facility] XCPT 9 Y Y URINE [facility] BLOOD/STO OL AEROBIC ISOL INJ J0702 COMMONWEA MAKSIM BETAMETHA 9 LTH II, NESHA SONE ORTHOPAED A ACETATE & IC SURGEONS PHOSPHATE PSC 3 MG SMR PRIM 56086 [facility] SRC 9 Y Y GRAM/GIEM [facility] SA STAIN BCT FUNGI/LEONIDES L PWR E2365 ALLIED ALLIED WHLCHAIR 9 HOME HOME ACSS U-1 MEDICAL, MEDICAL, SEALED INC. INC. LEAD ACID BATTRY EA REP/NONRO E1340 ALLIED ALLIED UTINE 9 HOME HOME SRVC DME MEDICAL, MEDICAL, RQR SKL INC. INC. TECH LABR-15 MIN SBSQ 64800 [facility] 8 EMERGENCY N, CARE/DAY SERVICES TADARRO 25 MINUTES ASSOCIATE S INITIAL 21742 [facility] INPATIENT 8 EMERGENCY N, CONSULT SERVICES TADARRO NEW/ESTAB PT 110 ASSOCIATE MIN S ANESTH 89004 COMMONKRANTHI CAUSEY 8 [facility] REEMA Harvey ANESTHESI ARTHROSCO A PSC PIC PROC KNEE JOINT LEVEL III 93249 [place] ANN, SURG 8 MEDICAL TIM E PATHOLOGY SERV FOUNDATIO GROSS&VENUS ROSCOPIC EXAM ANES 13041 [place] HIRO, LOWER 8 ANESTHESI JENNIFER Vieira INTESTINE A GROUP PSC ENDOSCOPY DISTAL DUODENUM COLONOSCO 65191 [facility] [place], PY FLX DX 8 [place] RICHY G W/COLLJ GASTROENT SPEC WHEN PFRMD CELL 35279 [facility] COUNT 8 Y Y MISC BODY [facility] FLUIDS W/DIFFERE NTIAL COUNT CUL BACT 86566 [facility] XCPT 8 Y Y URINE [facility] BLOOD/STO OL AEROBIC ISOL SMR PRIM 56461 [facility] SRC 8 Y Y GRAM/GIEM [facility] SA STAIN BCT FUNGI/LEONIDES L ADMN [...] NONFILTR PHARMACY PHARMACY PNEUMAT NEBULIZR DISPBL DUP-SCAN 24938 [facility] LXTR 8 N N ART[facility] COMPL BI STUDY PHRM Q0513 PULMO [...] NONFILTR PHARMACY PHARMACY PNEUMATIC NEBULIZER DISPBL RADIOLOGI 60090 MAKSIM MAKSIM C EXAM 8 II, NESHA II, NESHA KNEE A A COMPLETE 4/MORE VIEWS RADIOLOGI 69522 MAKSIM MAKSIM C 8 II, NESHA II, NESHA EXAMINATI A A ON KNEE 1/2 VIEWS [facility] Q0513 PULMO PULMO DISPENSIN 8 DOSE DOSE G FEE PHARMACY PHARMACY INHALATIO N RX; PER 30 DAYS ALBUTEROL J7620 PULMO PULMO TO 2.5 8 DOSE DOSE MG & PHARMACY PHARMACY IPRATROPI UM BROM TO 0.5 MG Encounters Encounter Start End Date Code Location Performer Type Date [facility] - 3 3 Y [facility] [place] [facility] 3 [facility] [place] [facility] EMERGENC[facility] 18664 TARAS SALAZAR DEPT 3 3 MEDICAL JORGE VISIT SERV HIGH FOUNDATIO SEVERITY& THREAT [facility] - 3 3 Y [facility] 3 3 [facility] OFFICE 51415 ARTHRITIS ALBERTO [facility] 3 3 CENTER T VISIT OF 25 [facility] - 3 3 Y [facility] EMERGENCY 34211 POPPY SANTA DEPT 3 3 EMERGENCY VISIT SERVICES HIGH SEVERITY& THREAT [facility] [place] - 3 3 [facility] [place] [facility] 3 [facility] OFFICE 77570 A Candice LAZCANO OUTPATIEN 3 3 FILEMON SHAH T VISIT [facility] [address] [facility] [place] - 3 3 [place] [facility] T EMERGENCY 17770 [place] 3 3 [facility] T VISIT HIGH/URGE NT SEVERITY EMERGENCY 69016 POPPY SANTA DEPT 3 3 EMERGENCY VISIT SERVICES HIGH SEVERITY& THREAT [facility] OFFICE 43241 ARTHRITIS ALBERTO RIT OUTPATIEN 3 3 CENTER T VISIT OF 25 [facility] OFFICE 86224 Avtar LAZCANO OUTPATIEN 3 3 FILEMON SHAH T VISIT [facility] [address] [facility] [place] - 3 3 [facility] OFFICE 42791 ARTHRITIS ALBERTO RIT OUTPATIEN 3 3 CENTER T VISIT OF 10 [facility] [place] - 3 3 [facility] [place] - 3 3 [facility] OFFICE 07663 ARTHRITIS ALBERTO RIT OUTPATIEN 3 3 CENTER T VISIT OF 25 [facility] [place] - 3 3 [place] [facility] - 3 3 Y [facility] T OFFICE 08998 TARAS THOMPSON OUTPATIEN 3 3 MEDICAL JAM T VISIT SERV 40 [facility] [place] - 3 3 [facility] OUTPATIEN [facility] T EMERGENCY 13727 TARAS LANTIGUA DEPT 3 3 MEDICAL OUT PATIENT THERAPIST VISIT SERV HIGH FOUNDATIO SEVERITY& THREAT [facility] - 3 3 Y INPATIENT HOSPITAL OFFICE 19496 TARAS GATES OUTPATIEN 3 3 MEDICAL YATACO T VISIT SERV ANG 25 [facility] UNIVERSIT - 2 3 Y INPATIENT HOSPITAL EMERGENCY 00311 POPPY LOPEZ DEPT 2 2 EMERGENCY VENUS VISIT SERVICES HIGH SEVERITY& THREAT [facility] EMERGENCY 16178 POPPY SANTA DEPT 2 2 EMERGENCY VISIT SERVICES HIGH SEVERITY& THREAT [facility] [place] [address] 2 N [facility]OSPITA OFFICE 00090 CULBERTSO CULBERTSO OUTPATIEN 2 2 N KALYAN N KALYAN T VISIT 15 MINUTES OFFICE 48577 CULBERTSO CULBERTSO OUTPATIEN 1 1 N KALYAN N KALYAN T VISIT 15 [facility] HOSPITAL UNIVERSIT - 1 1 Y [facility] - 1 1 Y [facility] - 0 0 Y [facility] OFFICE 81475 CULBERTSO CULBERTSO OUTPATIEN 0 0 N KALYAN N KALYAN T VISIT 15 MINUTES OFFICE 40251 TARAS MARTINEZ OUTPATIEN 0 0 MEDICAL KAMALA T VISIT SERV 15 FOUNDATIO [facility] EMERGENCY 38310 [place] 0 0 [facility] DEPARTMEN INC T VISIT MODERATE SEVERITY HOSPITAL [place] - 0 0 [facility] OUTPATIEN [facility] T EMERGENCY 76358 POPPY MORRISSEY DEPT 0 0 EMERGENCY III TRISTA VISIT SERVICES HIGH SEVERITY& THREAT [facility] OFFICE 35432 TARAS MARTINEZ OUTPATIEN 0 0 MEDICAL KAMALA T VISIT SERV 15 [facility] [place] - 0 0 [facility] OUTPATIEN [facility] T EMERGENCY 32679 [place] 0 0 [facility] DEPARTMEN INC T VISIT LOW/MODER SEVERITY OFFICE 20397 CULBERTSO CULBERTSO OUTPATIEN 9 9 N, GEREMIAS DOUGHERTY VISIT 15 MINUTES [facility] - 9 9 N [facility] OFFICE 59872 CULBERTSO CULBERTSO OUTPATIEN 9 9 N, GEREMIAS DOUGHERTY VISIT 15 MINUTES OFFICE 69484 CULBERTSO CUL[facility]ERTSO OUTPATIEN 9 9 N, GEREMIAS DOUGHERTY VISIT 25 MINUTES OFFICE 20403 CULBERTSO CUL[facility]ERTSO OUTPATIEN 9 9 NGEREMIAS ROBERT T VISIT 15 MINUTES HOSPITAL UNIVERSIT - 9 9 Y [facility]PITAL UNIVERSIT - 9 9 Y [facility] OFFICE 31659 KAM ENCARNACION 9 9 MEDICAL TONO J ION SERV NEW/ESTAB FOUNDATIO PATIENT 40 MIN OFFICE 06909 COMMONWEA MAKSIM [facility] 9 9 [facility] NESHA CLEMONS T VISIT ORTHOPAED A 15 IC MINUTES SURGEONS [facility] UNIVERSIT - 9 9 Y [facility]PITAL UNIVERSIT - 8 8 Y [facility] OFFICE 93670 [facility] N, GEREMIAS DOUGHERTY VISIT 15 MINUTES [facility] - 8 8 N [facility] OFFICE 53682 MAKSIM MAKSIM [facility] 8 8 IINESHA II, GLEN T VISIT A A 15 MINUTES
--- OUTSIDE RECORDS SUMMARY | 2016-09-28 15:24 | External Medical Summary Rpt ---
Demographics Preferred Language Welsh Marital Status Unknown Roman Catholic Affiliation Unknown Race Unknown Ethnic Group Unknown Author Author , Organization [employer] Address Unknown Phone Unavailable Purpose Continuity of Care Document - through 2016 Immunization No patient found.
--- OUTSIDE RECORDS SUMMARY | 2016-09-28 15:24 | External Medical Summary Rpt ---
Demographics Preferred Language Setswana Marital Status Unknown Voodoo Affiliation Unknown Race Unknown Ethnic Group Unknown Author Author , Organization [employer] Address Unknown Phone Unavailable Purpose Continuity of Care Document - through 2016 Immunization No patient found.
--- NOTE | 2016-09-28 16:45 | HISTORY AND PHYSICAL REPORT ---
Demographics: Admit date: 09/28/16 Chief complaint: Shortness of breath PRIMARY DIAGNOSIS: pneumonia Allergies: Coded Allergies: No Known Allergies (04/28/16) History of present illness: History of present illness: 60-year-old male with severe chronic obstructive pulmonary disease and pulmonary fibrosis presents to the emergency department one day after being discharged with worsening dyspnea. Patient had been hospitalized from September 23 to September 27 with a viral respiratory infection that exacerbated his chronic obstructive pulmonary disease. Patient had been discharged on September 27 when he was felt to be at baseline. Patient reports worsening shortness of breath since discharge with associated vomiting and diarrhea. He contacted my office this morning stating he was having difficulty urinating and decided to come to the emergency department. In the emergency department workup was begun which included a chest x-ray as well as a CT scan of the chest. CT scan shows small perihilar infiltrate superimposed upon his chronic changes. Patient has been given Levaquin and vancomycin and admitted for pneumonia. Past medical history: Family HX Family Hx Insignificant No Diabetes No CAD No Hypertension Yes Hyperlipidemia No Cancer Yes TB No Immunization HX DT/Tetanus N Flu 2015-FSN Pneumonia Received In Past General CAD? No Angina: No [place]: Yes Hypertension? Yes Hyperlipidemia? No CHF? No DVT? No PE? No COPD? Yes Asthma? Yes Anemia? Yes GERD? Yes Gastric ulcers? No GI Bleed? No Hernia? Yes Thyroid Problems? No Hypothyroidism? No CVA? No Seizures? No Diabetes? No Renal Insuffiency? No UTI? Yes Stones? Yes BPH? Yes GB Disease: No Nephritic Syndrome? No Asplenia? No Hepatitis? No Sickle Cell Disease? No Arthritis? Yes Migraines? No Cataracts? No Glaucoma? No MRSA? Yes HIV? No TB? No Anxiety? Yes Depression? Yes Cancer? No More? 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 Past Surgical HX Previous Surgery?Y LEFT ANKLE BILATERAL CARPAL TUNNEL RIGHT FOOT R SHOULDER REPLACEMENT IBV VALVE RT LUNG LEFT ANKLE IBV VALVE RT LUNG REMOVED Current home meds: Active Scripts Prednisone (Deltasone) 20 MG PO DAILY #10 TAB Prov: 09/27/16 Reported Medications Ranolazine (Ranexa) 1,000 MG PO BID Metoprolol Tartrate (Lopressor) 25 MG PO BID #60 Gabapentin 300 MG PO BID #60 Omeprazole (Prilosec 20MG) 20 MG PO DAILY Leflunomide (Arava) 20 MG PO DAILY Alprazolam (Xanax 1MG) 1 MG PO TID #90 TAB Sertraline Hydrochloride (Sertraline 100MG) 100 MG PO DAILY #30 CLOPIDOGREL BISULFATE (Clopidogrel) 75 MG PO DAILY #30 MULTIVIT-MIN W/FE-FA ( Multivitamin Tablet) 1 TAB PO DAILY Montelukast Sodium (Singulair) 10 MG PO QHS HYDROCODONE/ACETAMINOPHEN (Hydrocodon-Acetaminophn 10-325) 1 TAB PO Q4HP PRN PAIN #150 TRAZODONE HCL (Trazodone HCl) 50 MG PO QHS ALBUTEROL-IPRATROPIUM (Combivent Inhaler) 1 PUFFS IN Q6H FLUTICASONE/SALMETEROL (Advair 250-50 Diskus) 1 PUFF IN BID Social Hx: Smoking HX Tobacco Yes (patient stopped smoking) Type Cigarettes Packs/day N/A Alcohol Alcohol: No Hx of Drug Use Drug Use? No Patient's support system is fair Review of systems: Constitutional diaphoresis, fever. Respiratory cough, shortness of breath, SOB with excertion, SOB at rest, wheezing. Cardiovascular no symptoms reported Gastrointestinal/Abdominal no symptoms reported Genitourinary no symptoms reported. Musculoskeletal no symptoms reported. Neurological Yes: no symptoms reported. Exam: Lab data for last 24 hours: Laboratory Tests 09/28/16 1000: Lipase 50 L 09/28/16 1000: Lactic Acid 1.0 09/28/16 1000: Sodium 141, Potassium 3.9, Chloride 103, Carbon Dioxide 31, BUN 16, Creatinine 1.1, Estimated Creat Clear 113, Estimated GFR (MDRD) 69, Glucose 102, Calcium 8.5, Total Bilirubin 0.8, AST 20, ALT 24, Alkaline Phosphatase 46, Creatine Kinase 51, CK-MB (CK-2) Rel Index 1.0, CK and CKMB Interp < 0.5, Troponin I 0.03 , B-Natriuretic Peptide 239 H, Total Protein 6.7, Albumin 2.2 L, Globulin 4.5 H, Albumin/Globulin Ratio 0.5 L, D-Dimer 1270 *H, WBC 18.4 H, Corrected WBC ( auto) 18.2, RBC 3.65 L, Hgb 10.0 L, Hct 32.2 L, MCV 88.3, RDW 18.4 H, Plt Count 237, MPV 6.2 L, Gran % 86.5 H, Gran # 15.9 H, Total Counted 100, Lymphocytes % 10.1, Monocytes % 2.7, Eosinophils % 0.4, Basophils % 0.3, Neutrophils 77 H, Band Neutrophils 5, Lymphocytes (Manual) 13, Lymphocytes # 1.9, Monocytes (Manual) 5, Monocytes # 0.5, Eosinophils # 0.1, Basophils # 0.1, Nucleated RBCs 1, Platelet Estimate NORMAL, Hypochromasia 1+, Anisocytosis 2+, PUBS MCHC 31.2 L, MCH 27.5 Microbiology 09/28 1000 STOOL: Escherichia coli Shiga Toxins EIA - ORD 09/28 1000 STOOL: Campylobactor Susceptibility - ORD 09/28 1000 STOOL: Campylobactor Result 4 - ORD 09/28 1000 STOOL: Campylobactor Result 3 - ORD 09/28 1000 STOOL: Campylobactor Result 2 - ORD 09/28 1000 STOOL: Campylobactor Result - ORD 09/28 1000 STOOL: Campylobacter Culture - ORD 09/28 1000 STOOL: Antimicrobic Susceptibility - ORD 09/28 1000 STOOL: Stool Culture Result 4 - ORD 09/28 1000 STOOL: Stool Culture Result 3 - ORD 09/28 1000 STOOL: Stool Culture Result 2 - ORD 09/28 1000 STOOL: Stool Culture Result - ORD 09/28 1000 STOOL: Salmonella/Shigella Screen - ORD 09/28 1000 STOOL: Antimicrobic Susceptibility - ORD 09/28 1000 STOOL: Ova and Parasite Result 4 - ORD 09/28 1000 STOOL: Ova and Parasite Result 3 - ORD 09/28 1000 STOOL: Ova and Parasite Result 2 - ORD 09/28 1000 STOOL: Ova and Parasite Result - ORD 09/28 1000 STOOL: Ova and Parasites - ORD 09/28 1000 BLOOD: Anaerobic Blood Culture - RECD 09/28 1000 BLOOD: Aerobic Blood Culture - RECD 09/28 1000 BLOOD: Anaerobic Blood Culture - RECD 09/28 1000 BLOOD: Aerobic Blood Culture - RECD 09/28 UNK BLOOD: Anaerobic Blood Culture - CAN Cancelled: @PATIENT HAD BLOOD CULTURES DRAWN IN ER / UNK BLOOD: Aerobic Blood Culture - CAN Cancelled: @PATIENT HAD BLOOD CULTURES DRAWN IN ER 09/28 UNK BLOOD: Anaerobic Blood Culture - CAN Cancelled: @PATIENT HAD BLOOD CULTURES DRAWN IN ER 09/28 UNK BLOOD: Aerobic Blood Culture - CAN Cancelled: @PATIENT HAD BLOOD CULTURES DRAWN IN ER Admission vital signs: 1ST Vital Signs Result Date Time Pulse Ox 95 09/28 937 B/P 125/78 09/28 937 O2 Flow Rate 3 09/28 937 Temp 98.6 09/28 937 Pulse 139 09/28 937 Resp 18 09/28 937 Additional information: Patient is awake and alert with mild increase in respiratory effort. Nasal cannula oxygen is in use. HEENT exam is unchanged from prior visit. Lungs have diffuse wheezes and rhonchi bilaterally. Heart rate is tachycardic. Abdomen is obese and soft. Extremities are without edema. Plan: Problem List 1. Pneumonia 2. Morbid obesity 3. Chronic obstructive pulmonary disease with (acute) exacerbation 4. Iron deficiency anemia 5. Chronic respiratory failure 6. Pulmonary fibrosis Plan: Patient's been admitted and will be placed on cefepime and Levaquin to cover Pseudomonas and vancomycin has been added for potential MRSA coverage. Sputum culture and blood cultures will be collected. Steroids been ordered for his chronic obstructive pulmonary disease exacerbation. He will continue duo nebs as well. Home medicines have been reordered at 1846
[2016-09-28 17:26] VITALS: BP 122/66
[2016-09-28 17:29] VITALS: BP 148/58
[2016-09-28 19:32] VITALS: BP 114/78
[2016-09-29] VITALS (14 sets, daily range): BP systolic 100–151; BP diastolic 51–84
--- NOTE | 2016-09-29 06:38 | ACUTE CARE PROGRESS NOTE (QUA) ---
Progress Notes Subjective Date 09/29/16 Time 0637 Note Patient feels unchanged this morning. Overnight he had a drop in his temperature to approximately 94 degrees which required application of the bear hugger. Over the course of several hours his temperature returned to normal. Patient states he felt fine during this time. He continues to have cough with sputum production that is described as anywhere from yellow to green. He appears comfortable. Oxygen is in place. Lung exam is unchanged from yesterday afternoon with persistent wheezing and rhonchi throughout. Heart has regular rate and rhythm. Extremities are without edema. Continue broad-spectrum antibiotic coverage and intravenous steroids with aerosols. Plan on repeating his chest x-ray tomorrow. I've encouraged the patient to ambulate in the room. Discontinue telemetry Objective Findings Last VS-Temp:97.5 B/P:100/69 Pulse:78 Resp:22 SaO2:95 OXYGEN Last weight lbs:230 oz:6 K.498 Method:Bed Scales Laboratory Tests 09/28/16 1000: Lipase 50 L 09/28/16 1000: Lactic Acid 1.0 09/28/16 1000: Sodium 141, Potassium 3.9, Chloride 103, Carbon Dioxide 31, BUN 16, Creatinine 1.1, Estimated Creat Clear 113, Estimated GFR (MDRD) 69, Glucose 102, Calcium 8.5, Total Bilirubin 0.8, AST 20, ALT 24, Alkaline Phosphatase 46, Creatine Kinase 51, CK-MB (CK-2) Rel Index 1.0, CK and CKMB Interp < 0.5, Troponin I 0.03 , B-Natriuretic Peptide 239 H, Total Protein 6.7, Albumin 2.2 L, Globulin 4.5 H, Albumin/Globulin Ratio 0.5 L, D-Dimer 1270 *H, WBC 18.4 H, Corrected WBC ( auto) 18.2, RBC 3.65 L, Hgb 10.0 L, Hct 32.2 L, MCV 88.3, RDW 18.4 H, Plt Count 237, MPV 6.2 L, Gran % 86.5 H, Gran # 15.9 H, Total Counted 100, Lymphocytes % 10.1, Monocytes % 2.7, Eosinophils % 0.4, Basophils % 0.3, Neutrophils 77 H, Band Neutrophils 5, Lymphocytes (Manual) 13, Lymphocytes # 1.9, Monocytes (Manual) 5, Monocytes # 0.5, Eosinophils # 0.1, Basophils # 0.1, Nucleated RBCs 1, Platelet Estimate NORMAL, Hypochromasia 1+, Anisocytosis 2+, PUBS MCHC 31.2 L, MCH 27.5 Microbiology 09/28 1650 SPUTUM: Sputum Culture - RES 09/28 1650 SPUTUM: Gram Stain - RES 09/28 1000 STOOL: Escherichia coli Shiga Toxins EIA - ORD 09/28 1000 STOOL: Campylobactor Susceptibility - ORD 09/28 1000 STOOL: Campylobactor Result 4 - ORD 09/28 1000 STOOL: Campylobactor Result 3 - ORD 09/28 1000 STOOL: Campylobactor Result 2 - ORD 09/28 1000 STOOL: Campylobactor Result 1 - ORD 09/28 1000 STOOL: Campylobacter Culture - ORD 09/28 1000 STOOL: Antimicrobic Susceptibility - ORD 09/28 1000 STOOL: Stool Culture Result 4 - ORD 09/28 1000 STOOL: Stool Culture Result 3 - ORD 09/28 1000 STOOL: Stool Culture Result 2 - ORD 09/28 1000 STOOL: Stool Culture Result 1 - ORD 09/28 1000 STOOL: Salmonella/Shigella Screen - ORD 09/28 1000 STOOL: Antimicrobic Susceptibility - ORD 09/28 1000 STOOL: Ova and Parasite Result 4 - ORD 09/28 1000 STOOL: Ova and Parasite Result 3 - ORD 09/28 1000 STOOL: Ova and Parasite Result 2 - ORD 09/28 1000 STOOL: Ova and Parasite Result 1 - ORD 09/28 1000 STOOL: Ova and Parasites - ORD 09/28 1000 BLOOD: Anaerobic Blood Culture - RECD 09/28 1000 BLOOD: Aerobic Blood Culture - RECD 09/28 1000 BLOOD: Anaerobic Blood Culture - RECD 09/28 1000 BLOOD: Aerobic Blood Culture - RECD Assessment/Plan Problem List 1. Pneumonia Qualifiers: Pneumonia type: due to unspecified organism Laterality: bilateral Lung location : unspecified part of lung Qualified Code: J18.9 - Pneumonia, unspecified organism 2. Morbid obesity 3. Chronic obstructive pulmonary disease with (acute) exacerbation 4. Iron deficiency anemia 5. Chronic respiratory failure 6. Pulmonary fibrosis Patient condition Stable Plan: continue current care This inpt stay is expected to cross 2 MNs from start of care Yes at 0638
[2016-09-29 07:15] LABS: LYMPH # 0.6 K/mm3 (0.7-4.5); LYMPH % 4.2 % (10-50)
[2016-09-29 07:26] LABS: HEMOGLOBIN 8.9 g/dL (14.1-18.0)
--- NOTE | 2016-09-29 07:28 | PHARMACY CLINIC NOTE ---
Patient Demographics Patient Demographics Admission date: 09/28/16 Date: 09/29/16 Time: 726 Allergies Coded Allergies: No Known Allergies (04/28/16) HEIGHT- FT: 5 IN: 8.00 K.498 VTE General Information Labs: Laboratory Tests 09/29 09/28 0650 1000 Hematology Hgb (14.1 - 18.0 g/dL) 8.9 L 10.0 L Hct (42.0 - 52.0 %) 29.3 L 32.2 L Plt Count (142 - 424 K/mm3) 211 237 Disclaimer The following section includes nursing documentation that has been pulled in for pharmacy review. Patient's VTE score: 4 Patient's VTE Risk: LOW RISK Clinical trial participant? No VTE prophylaxis NQF [id number] VTE prophylaxis ordered? Yes Type of prophylaxis/treatment: ICD at 0727
--- NOTE | 2016-09-29 08:38 | RADIOLOGY REPORT PS360 ---
CHEST(2 VIEWS-NOT PORTABLE) HISTORY: PNUEMONIA ORDERING PHYSICIAN: Norm Perez MD PATIENT AGE: 60 years COMPARISON: 09/28/2016 FINDINGS: Diffuse pulmonary fibrotic changes are once again noted with suspected superimposed infiltrate in the right upper and left upper lobes unchanged on the right and slightly improved on the left. There is cardiomegaly. No obvious effusion. Right humeral prosthesis in place. IMPRESSION: Persistent severe pulmonary fibrosis with suspected superimposed pneumonia in the right upper lobe unchanged and in the left upper lobe slightly improved
--- NOTE | 2016-09-29 08:40 | CONSULT NOTE ---
Pharmacokinetic Consult Date of consult: 09/29/16 Time of consult: 836 Referring provider: DR. VALIENTE Reason for consult: VANCOMYCIN DOSING Allergies: Coded Allergies: No Known Allergies (04/28/16) Home Medications: Active Scripts Prednisone (Deltasone) 20 MG PO DAILY #10 TAB Prov: 09/27/16 Reported Medications Ranolazine (Ranexa) 1,000 MG PO BID Metoprolol Tartrate (Lopressor) 25 MG PO BID #60 Gabapentin 300 MG PO BID #60 Omeprazole (Prilosec 20MG) 20 MG PO DAILY Leflunomide (Arava) 20 MG PO DAILY Alprazolam (Xanax 1MG) 1 MG PO TID #90 TAB Sertraline Hydrochloride (Sertraline 100MG) 100 MG PO DAILY #30 CLOPIDOGREL BISULFATE (Clopidogrel) 75 MG PO DAILY #30 MULTIVIT-MIN W/FE-FA ( Multivitamin Tablet) 1 TAB PO DAILY Montelukast Sodium (Singulair) 10 MG PO QHS HYDROCODONE/ACETAMINOPHEN (Hydrocodon-Acetaminophn 10-325) 1 TAB PO Q4HP PRN PAIN #150 TRAZODONE HCL (Trazodone HCl) 50 MG PO QHS ALBUTEROL-IPRATROPIUM (Combivent Inhaler) 1 PUFFS IN Q6H FLUTICASONE/SALMETEROL (Advair 250-50 Diskus) 1 PUFF IN BID Height (feet): 5 Height (inches): 8.00 Medical History: CAD? No Angina: No [place]: Yes Hypertension? Yes Hyperlipidemia? No CHF? No DVT? No PE? No COPD? Yes Asthma? Yes Anemia? Yes GERD? Yes Gastric ulcers? No GI Bleed? No Hernia? Yes Thyroid Problems? No Hypothyroidism? No CVA? No Seizures? No Diabetes? No Renal Insuffiency? No UTI? Yes Stones? Yes BPH? Yes GB Disease: No Nephritic Syndrome? No Asplenia? No Hepatitis? No Sickle Cell Disease? No Arthritis? Yes Migraines? No Cataracts? No Glaucoma? No MRSA? Yes HIV? No TB? No Anxiety? Yes Depression? Yes Cancer? No More? 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 Labs: Laboratory Tests 09/29/16 0650: Sodium 142, Potassium 4.1, Chloride 106, Carbon Dioxide 28, BUN 19 H, Creatinine 0.8, Estimated Creat Clear 149, Estimated GFR (MDRD) 99, Glucose 161 H, Calcium 7.8 L, WBC 13.3 H, RBC 3.26 L, Hgb 8.9 L, Hct 29.3 L, MCV 90.0, RDW 18.6 H, Plt Count 211, MPV 6.3 L, Gran % 93.6 H, Gran # 12.7 H, Lymphocytes % 4.2 L, Monocytes % 1.9, Eosinophils % 0.2, Basophils % 0.1, Lymphocytes # 0.6 L, Monocytes # 0.3, Eosinophils # 0.0, Basophils # 0.0, PUBS MCHC 30.2 L, MCH 27.2 09/28/16 1000: Lipase 50 L 09/28/16 1000: Lactic Acid 1.0 09/28/16 1000: Sodium 141, Potassium 3.9, Chloride 103, Carbon Dioxide 31, BUN 16, Creatinine 1.1, Estimated Creat Clear 113, Estimated GFR (MDRD) 69, Glucose 102, Calcium 8.5, Total Bilirubin 0.8, AST 20, ALT 24, Alkaline Phosphatase 46, Creatine Kinase 51, CK-MB (CK-2) Rel Index 1.0, CK and CKMB Interp < 0.5, Troponin I 0.03 , B-Natriuretic Peptide 239 H, Total Protein 6.7, Albumin 2.2 L, Globulin 4.5 H, Albumin/Globulin Ratio 0.5 L, D-Dimer 1270 *H, WBC 18.4 H, Corrected WBC ( auto) 18.2, RBC 3.65 L, Hgb 10.0 L, Hct 32.2 L, MCV 88.3, RDW 18.4 H, Plt Count 237, MPV 6.2 L, Gran % 86.5 H, Gran # 15.9 H, Total Counted 100, Lymphocytes % 10.1, Monocytes % 2.7, Eosinophils % 0.4, Basophils % 0.3, Neutrophils 77 H, Band Neutrophils 5, Lymphocytes (Manual) 13, Lymphocytes # 1.9, Monocytes (Manual) 5, Monocytes # 0.5, Eosinophils # 0.1, Basophils # 0.1, Nucleated RBCs 1, Platelet Estimate NORMAL, Hypochromasia 1+, Anisocytosis 2+, PUBS MCHC 31.2 L, MCH 27.5 Microbiology 09/28 1650 SPUTUM: Sputum Culture - RES 09/28 1650 SPUTUM: Gram Stain - RES 09/28 1000 STOOL: Escherichia coli Shiga Toxins EIA - ORD 09/28 1000 STOOL: Campylobactor Susceptibility - ORD 09/28 1000 STOOL: Campylobactor Result 4 - ORD 09/28 1000 STOOL: Campylobactor Result 3 - ORD 09/28 1000 STOOL: Campylobactor Result 2 - ORD 09/28 1000 STOOL: Campylobactor Result 1 - ORD 09/28 1000 STOOL: Campylobacter Culture - ORD 09/28 1000 STOOL: Antimicrobic Susceptibility - ORD 09/28 1000 STOOL: Stool Culture Result 4 - ORD 09/28 1000 STOOL: Stool Culture Result 3 - ORD 09/28 1000 STOOL: Stool Culture Result 2 - ORD 09/28 1000 STOOL: Stool Culture Result 1 - ORD 09/28 1000 STOOL: Salmonella/Shigella Screen - ORD 09/28 1000 STOOL: Antimicrobic Susceptibility - ORD 09/28 1000 STOOL: Ova and Parasite Result 4 - ORD 09/28 1000 STOOL: Ova and Parasite Result 3 - ORD 09/28 1000 STOOL: Ova and Parasite Result 2 - ORD 09/28 1000 STOOL: Ova and Parasite Result 1 - ORD 09/28 1000 STOOL: Ova and Parasites - ORD 09/28 1000 BLOOD: Anaerobic Blood Culture - RECD 09/28 1000 BLOOD: Aerobic Blood Culture - RECD 09/28 1000 BLOOD: Anaerobic Blood Culture - RECD 09/28 1000 BLOOD: Aerobic Blood Culture - RECD Plan: BASED ON PATIENT'S FACTORS, RECOMMENDED PATIENT START WITH VANCOMYCIN 1750 MG Q12H. PHARMACY WILL FOLLOW DAILY AND ADJUST APPROPRIATE. JOAN YOUNG PHARMD at 0839
[2016-09-30 03:24] VITALS: BP 136/84
[2016-09-30 07:05] LABS: HEMOGLOBIN 8.4 g/dL (14.1-18.0); LYMPH # 0.5 K/mm3 (0.7-4.5); LYMPH % 4.3 % (10-50)
--- NOTE | 2016-09-30 07:32 | ACUTE CARE PROGRESS NOTE (QUA) ---
Progress Notes Admission Date: 09/29/16 Subjective Date 09/30/16 Time 0730 Note Patient reports having nausea and diarrhea yesterday. However he was able to get up out of bed and move around. No fevers or detected. He continues to cough with yellow sputum production. He is resting comfortably when we entered the room. Lungs exam reveals improvement in aeration although he continues to have diffuse expiratory wheezes and rhonchi. Sputum cultures grown pseudomonas aeruginosa Patient will need 7 days of IV antibiotics. I'm adjusting antibiotics to cefepime and gentamicin due to the intermediate sensitivity of Levaquin. Patient will also receive azithromycin. We will look into the possibility of a swing bed for the patient Objective Findings Last VS-Temp:97.6 B/P:136/84 Pulse:87 Resp:24 SaO2:94 OXYGEN Last weight lbs:230 oz:6 K.498 Method:Bed Scales Laboratory Tests 09/30/16 0623: Sodium 144, Potassium 4.0, Chloride 108 H, Carbon Dioxide 30, BUN 16, Creatinine 0.8, Estimated Creat Clear 149, Estimated GFR (MDRD) 99, Glucose 142 H, Calcium 8.3 L, WBC 11.6 H, RBC 3.14 L, Hgb 8.4 L, Hct 28.5 L, MCV 90.6, RDW 18.2 H, Plt Count 206, MPV 6.2 L, Gran % 93.3 H, Gran # 10.8 H, Lymphocytes % 4.3 L, Monocytes % 2.1, Eosinophils % 0.2, Basophils % 0.1, Lymphocytes # 0.5 L, Monocytes # 0.3, Eosinophils # 0.0, Basophils # 0.0, PUBS MCHC 29.4 L, MCH 26.6 L 09/29/16 2251: Vancomycin Trough 19.0 H Assessment/Plan Problem List 1. Pneumonia Qualifiers: Pneumonia type: due to unspecified organism Laterality: bilateral Lung location : unspecified part of lung Qualified Code: J18.9 - Pneumonia, unspecified organism 2. Morbid obesity 3. Chronic obstructive pulmonary disease with (acute) exacerbation 4. Iron deficiency anemia 5. Chronic respiratory failure 6. Pulmonary fibrosis Patient condition Stable Plan: continue current care This inpt stay is expected to cross 2 MNs from start of care Yes Antibiotic Stewardship (2) Current Culture Results Microbiology 09/28 1650 SPUTUM: Sputum Culture - RES PSEUDOMONAS AERUGINOSA 09/28 1650 SPUTUM: Gram Stain - RES 09/28 1000 STOOL: Escherichia coli Shiga Toxins EIA - ORD 09/28 1000 STOOL: Campylobactor Susceptibility - ORD 09/28 1000 STOOL: Campylobactor Result 4 - ORD 09/28 1000 STOOL: Campylobactor Result 3 - ORD 09/28 1000 STOOL: Campylobactor Result 2 - ORD 09/28 1000 STOOL: Campylobactor Result 1 - ORD 09/28 1000 STOOL: Campylobacter Culture - ORD 09/28 1000 STOOL: Antimicrobic Susceptibility - ORD 09/28 1000 STOOL: Stool Culture Result 4 - ORD 09/28 1000 STOOL: Stool Culture Result 3 - ORD 09/28 1000 STOOL: Stool Culture Result 2 - ORD 09/28 1000 STOOL: Stool Culture Result 1 - ORD 09/28 1000 STOOL: Salmonella/Shigella Screen - ORD 09/28 1000 STOOL: Ova and Parasite Result 4 - ORD 09/28 1000 STOOL: Ova and Parasite Result 3 - ORD 09/28 1000 STOOL: Ova and Parasite Result 2 - ORD 09/28 1000 STOOL: Ova and Parasite Result 1 - ORD 09/28 1000 STOOL: Ova and Parasites - ORD 09/28 1000 BLOOD: Anaerobic Blood Culture - RECD 09/28 1000 BLOOD: Aerobic Blood Culture - RECD Infxn that will respond? Yes Right drug,dose,and route? Yes More targeted antbx? No How long atbx needed? 7 at 0731
[2016-09-30 07:58] VITALS: BP 137/70
--- NOTE | 2016-09-30 09:01 | CONSULT NOTE ---
See Addendum Pharmacokinetic Consult Date of consult: 09/30/16 Time of consult: 08 Referring provider: DR. VALIENTE Reason for consult: GENTAMICIN DOSING Allergies: Coded Allergies: No Known Allergies (04/28/16) Home Medications: Active Scripts Prednisone (Deltasone) 20 MG PO DAILY #10 TAB Prov: 09/27/16 Reported Medications Ranolazine (Ranexa) 1,000 MG PO BID Metoprolol Tartrate (Lopressor) 25 MG PO BID #60 Gabapentin 300 MG PO BID #60 Omeprazole (Prilosec 20MG) 20 MG PO DAILY Leflunomide (Arava) 20 MG PO DAILY Alprazolam (Xanax 1MG) 1 MG PO TID #90 TAB Sertraline Hydrochloride (Sertraline 100MG) 100 MG PO DAILY #30 CLOPIDOGREL BISULFATE (Clopidogrel) 75 MG PO DAILY #30 MULTIVIT-MIN W/FE-FA ( Multivitamin Tablet) 1 TAB PO DAILY Montelukast Sodium (Singulair) 10 MG PO QHS HYDROCODONE/ACETAMINOPHEN (Hydrocodon-Acetaminophn 10-325) 1 TAB PO Q4HP PRN PAIN #150 TRAZODONE HCL (Trazodone HCl) 50 MG PO QHS ALBUTEROL-IPRATROPIUM (Combivent Inhaler) 1 PUFFS IN Q6H FLUTICASONE/SALMETEROL (Advair 250-50 Diskus) 1 PUFF IN BID Height (feet): 5 Height (inches): 8.00 Medical History: CAD? No Angina: No [place]: Yes Hypertension? Yes Hyperlipidemia? No CHF? No DVT? No PE? No COPD? Yes Asthma? Yes Anemia? Yes GERD? Yes Gastric ulcers? No GI Bleed? No Hernia? Yes Thyroid Problems? No Hypothyroidism? No CVA? No Seizures? No Diabetes? No Renal Insuffiency? No UTI? Yes Stones? Yes BPH? Yes GB Disease: No Nephritic Syndrome? No Asplenia? No Hepatitis? No Sickle Cell Disease? No Arthritis? Yes Migraines? No Cataracts? No Glaucoma? No MRSA? Yes HIV? No TB? No Anxiety? Yes Depression? Yes Cancer? No More? 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 Labs: Laboratory Tests 09/30/16 0623: Sodium 144, Potassium 4.0, Chloride 108 H, Carbon Dioxide 30, BUN 16, Creatinine 0.8, Estimated Creat Clear 149, Estimated GFR (MDRD) 99, Glucose 142 H, Calcium 8.3 L, WBC 11.6 H, RBC 3.14 L, Hgb 8.4 L, Hct 28.5 L, MCV 90.6, RDW 18.2 H, Plt Count 206, MPV 6.2 L, Gran % 93.3 H, Gran # 10.8 H, Lymphocytes % 4.3 L, Monocytes % 2.1, Eosinophils % 0.2, Basophils % 0.1, Lymphocytes # 0.5 L, Monocytes # 0.3, Eosinophils # 0.0, Basophils # 0.0, PUBS MCHC 29.4 L, MCH 26.6 L 09/29/16 2251: Vancomycin Trough 19.0 H Problem List: 1. Pneumonia due to Pseudomonas aeruginosa Plan: BASED ON PATIENT FACTORS, RECOMMEND GENTAMICIN 420 MG (5 MG/KG/DBW) IV Q24H. WILL OBTAIN 4 AND 12-HOUR LEVELS. PHARMACY WILL FOLLOW DAILY AND ADJUST APPROPRIATE. at 0901
[2016-09-30 10:01] LABS: NEUTROPHILS 88 % (42-76)
[2016-09-30 12:00] VITALS: BP 137/78
[2016-09-30 16:00] VITALS: BP 127/69
[2016-09-30 19:33] VITALS: BP 125/70
[2016-09-30 23:57] VITALS: BP 155/95
[2016-10-01] VITALS (7 sets, daily range): BP systolic 129–153; BP diastolic 81–88
[2016-10-01 06:48] LABS: HEMOGLOBIN 8.8 g/dL (14.1-18.0); LYMPH # 0.5 K/mm3 (0.7-4.5); LYMPH % 5.1 % (10-50)
--- NOTE | 2016-10-01 07:22 | ACUTE CARE PROGRESS NOTE (QUA) ---
Progress Notes Subjective Date 10/01/16 Time 0720 Note Patient has no complaints. He feels about the same. He is continuing to cough up lots of sputum and although he describes it as creamy and yellow when I observe him at bedside it looks relatively clear. Patient is in no distress. He has good inspiratory effort with clear breath sounds on inspiration but expiratory wheezes and rhonchi throughout. Heart has a regular rate and rhythm. Continue current care for his Pseudomonas pneumonia Assessment/Plan Problem List 1. Pneumonia Qualifiers: Pneumonia type: due to unspecified organism Laterality: bilateral Lung location : unspecified part of lung Qualified Code: J18.9 - Pneumonia, unspecified organism 2. Morbid obesity 3. Chronic obstructive pulmonary disease with (acute) exacerbation 4. Iron deficiency anemia 5. Chronic respiratory failure 6. Pulmonary fibrosis Patient condition Stable This inpt stay is expected to cross 2 MNs from start of care Yes Antibiotic Stewardship (2) Infxn that will respond? Yes Right drug,dose,and route? Yes More targeted antbx? No at 0721
--- NOTE | 2016-10-01 09:57 | CONSULT NOTE ---
Pharmacokinetic Consult Date of consult: 10/01/16 Time of consult: 951 Referring provider: DR. VALIENTE Reason for consult: GENTAMICIN LEVELS Allergies: Coded Allergies: No Known Allergies (04/28/16) Home Medications: Active Scripts Prednisone (Deltasone) 20 MG PO DAILY #10 TAB Prov: 09/27/16 Reported Medications Ranolazine (Ranexa) 1,000 MG PO BID Metoprolol Tartrate (Lopressor) 25 MG PO BID #60 Gabapentin 300 MG PO BID #60 Omeprazole (Prilosec 20MG) 20 MG PO DAILY Leflunomide (Arava) 20 MG PO DAILY Alprazolam (Xanax 1MG) 1 MG PO TID #90 TAB Sertraline Hydrochloride (Sertraline 100MG) 100 MG PO DAILY #30 CLOPIDOGREL BISULFATE (Clopidogrel) 75 MG PO DAILY #30 MULTIVIT-MIN W/FE-FA ( Multivitamin Tablet) 1 TAB PO DAILY Montelukast Sodium (Singulair) 10 MG PO QHS HYDROCODONE/ACETAMINOPHEN (Hydrocodon-Acetaminophn 10-325) 1 TAB PO Q4HP PRN PAIN #150 TRAZODONE HCL (Trazodone HCl) 50 MG PO QHS ALBUTEROL-IPRATROPIUM (Combivent Inhaler) 1 PUFFS IN Q6H FLUTICASONE/SALMETEROL (Advair 250-50 Diskus) 1 PUFF IN BID Height (feet): 5 Height (inches): 8.00 Medical History: CAD? No Angina: No [place]: Yes Hypertension? Yes Hyperlipidemia? No CHF? No DVT? No PE? No COPD? Yes Asthma? Yes Anemia? Yes GERD? Yes Gastric ulcers? No GI Bleed? No Hernia? Yes Thyroid Problems? No Hypothyroidism? No CVA? No Seizures? No Diabetes? No Renal Insuffiency? No UTI? Yes Stones? Yes BPH? Yes GB Disease: No Nephritic Syndrome? No Asplenia? No Hepatitis? No Sickle Cell Disease? No Arthritis? Yes Migraines? No Cataracts? No Glaucoma? No MRSA? Yes HIV? No TB? No Anxiety? Yes Depression? Yes Cancer? No More? 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 Labs: Laboratory Tests 10/01/16 0620: Sodium 142, Potassium 4.4, Chloride 106, Carbon Dioxide 32, BUN 19 H, Creatinine 1.0, Estimated Creat Clear 119, Estimated GFR (MDRD) 77, Glucose 151 H, Calcium 8.1 L, WBC 9.7, RBC 3.16 L, Hgb 8.8 L, Hct 28.5 L, MCV 90.1, RDW 18.4 H, Plt Count 215, MPV 7.0 L, Gran % 92.4 H, Gran # 9.0 H, Lymphocytes % 5.1 L, Monocytes % 2.4, Eosinophils % 0.0 L, Basophils % 0.0 L, Lymphocytes # 0.5 L, Monocytes # 0.2, Eosinophils # 0.0, Basophils # 0.0, PUBS MCHC 31.0 L, MCH 27.9 09/30/16 2335: Random Gentamicin 2.3 L 09/30/16 1530: Random Gentamicin 7.3 Problem List: 1. Pneumonia due to Pseudomonas aeruginosa Plan: GENTAMICIN LEVELS: 4-HOUR: 7.3 MCG/ML CALCULATED PEAK: 11.24 MCG/ML 12-HOUR: 2.3 MCG/ML CALCULATED TROUGH: 0.41 MCG/ML BASED ON LEVELS, RECOMMEND CONTINUING GENTAMICIN 420 MG IV Q24H. PHARMACY WILL CONTINUE TO MONITOR DAILY AND ADJUST APPROPRIATE. at 0957
[2016-10-02] VITALS (7 sets, daily range): BP systolic 105–150; BP diastolic 51–90
[2016-10-02 06:45] LABS: HEMOGLOBIN 8.7 g/dL (14.1-18.0); LYMPH # 0.6 K/mm3 (0.7-4.5); LYMPH % 7.3 % (10-50)
--- NOTE | 2016-10-02 07:11 | ACUTE CARE PROGRESS NOTE (QUA) ---
Progress Notes Subjective Date 10/02/16 Time 0709 Note Patient has no complaints this morning. He appears well and in no distress. Oxygen delivered via nasal cannula. Lung exam has improvement in rhonchi but still diffuse expiratory wheezes. Continue IV antibiotics for pseudomonal pneumonia Objective Findings Last VS-Temp:98.0 B/P:135/78 Pulse:91 Resp:18 SaO2:96 OXYGEN Last weight lbs:230 oz:6 K.498 Method:Bed Scales Laboratory Tests 10/02/16 0615: WBC 8.2, RBC 3.22 L, Hgb 8.7 L, Hct 29.3 L, MCV 91.1, RDW 18.8 H, Plt Count 218, MPV 6.2 L, Gran % 87.9 H, Gran # 7.2, Lymphocytes % 7.3 L, Monocytes % 4.6, Eosinophils % 0.1, Basophils % 0.1, Lymphocytes # 0.6 L, Monocytes # 0.4, Eosinophils # 0.0, Basophils # 0.0, PUBS MCHC 29.6 L, MCH 26.9 L Assessment/Plan Problem List 1. Pneumonia Qualifiers: Pneumonia type: due to unspecified organism Laterality: bilateral Lung location : unspecified part of lung Qualified Code: J18.9 - Pneumonia, unspecified organism 2. Morbid obesity 3. Chronic obstructive pulmonary disease with (acute) exacerbation 4. Iron deficiency anemia 5. Chronic respiratory failure 6. Pulmonary fibrosis Patient condition Improving Plan: continue current care This inpt stay is expected to cross 2 MNs from start of care Yes Antibiotic Stewardship (2) Infxn that will respond? Yes Right drug,dose,and route? Yes More targeted antbx? No at 0710
[2016-10-02 10:24] LABS: NEUTROPHILS 90 % (42-76)
[2016-10-03 03:21] VITALS: BP 153/93
--- NOTE | 2016-10-03 07:37 | ACUTE CARE PROGRESS NOTE (QUA) ---
Progress Notes Subjective Date 10/03/16 Time 0735 Note Patient states she's feeling a little bit stronger. He has been walking in the room and would like to walk outside of the room a little bit. His sputum production is decreasing He looks well. Lungs continued to have expiratory wheezes. Heart has a regular rate and rhythm. Continue his current treatment for pseudomonal pneumonia. Patient is improving Objective Findings Last VS-Temp:98.0 B/P:153/93 Pulse:90 Resp:18 SaO2:97 OXYGEN Last weight lbs:230 oz:6 K.498 Method:Bed Scales Assessment/Plan Problem List 1. Pneumonia Qualifiers: Pneumonia type: due to unspecified organism Laterality: bilateral Lung location : unspecified part of lung Qualified Code: J18.9 - Pneumonia, unspecified organism 2. Morbid obesity 3. Chronic obstructive pulmonary disease with (acute) exacerbation 4. Iron deficiency anemia 5. Chronic respiratory failure 6. Pulmonary fibrosis Patient condition Improving Plan: continue current care This inpt stay is expected to cross 2 MNs from start of care Yes Antibiotic Stewardship (2) Infxn that will respond? Yes Right drug,dose,and route? Yes More targeted antbx? No at 0736
[2016-10-03 08:00] VITALS: BP 162/90
[2016-10-03 13:23] VITALS: BP 123/70
[2016-10-03 16:00] VITALS: BP 134/78
[2016-10-03 20:04] VITALS: BP 147/82
[2016-10-03 23:40] VITALS: BP 148/93
[2016-10-04] VITALS (8 sets, daily range): BP systolic 130–169; BP diastolic 74–91
--- NOTE | 2016-10-04 07:32 | ACUTE CARE PROGRESS NOTE (QUA) ---
Progress Notes Subjective Date 10/04/16 Time 0731 Note Patient has no complaints. He is barely producing any sputum over the last 24 hours. He looks comfortable. Lungs have expiratory wheezes with fair aeration. Rhonchi are faint Objective Findings Last VS-Temp:98.4 B/P:169/91 Pulse:86 Resp:18 SaO2:96 OXYGEN Last weight lbs:251 oz:3 K.937 Method:Bed Scales Assessment/Plan Problem List 1. Pneumonia Qualifiers: Pneumonia type: due to unspecified organism Laterality: bilateral Lung location : unspecified part of lung Qualified Code: J18.9 - Pneumonia, unspecified organism 2. Morbid obesity 3. Chronic obstructive pulmonary disease with (acute) exacerbation 4. Iron deficiency anemia 5. Chronic respiratory failure 6. Pulmonary fibrosis Patient condition Improving Plan: continue current care This inpt stay is expected to cross 2 MNs from start of care Yes Antibiotic Stewardship (2) Infxn that will respond? Yes Right drug,dose,and route? Yes More targeted antbx? No at 0731
[2016-10-05 03:40] VITALS: BP 151/62
--- NOTE | 2016-10-05 07:10 | ACUTE CARE PROGRESS NOTE (QUA) ---
Progress Notes Subjective Date 10/05/16 Time 0708 Note Patient is without complaints. His cough has minimal sputum production. Sputum production usually occurs after breathing treatments. He feels like he gets relief from breathing treatments. He's been ambulating in his room with supplemental oxygen and denies any dyspnea. He looks well. There is no sign of any respiratory distress. Lungs continued to have expiratory wheezes. Repeat chest x-ray today. Decision on further antibiotics after chest x-rays resulted Objective Findings Last VS-Temp:98.6 B/P:151/62 Pulse:93 Resp:20 SaO2:98 OXYGEN Last weight lbs:251 oz:3 K.937 Method:Bed Scales Assessment/Plan Problem List 1. Pneumonia Qualifiers: Pneumonia type: due to unspecified organism Laterality: bilateral Lung location : unspecified part of lung Qualified Code: J18.9 - Pneumonia, unspecified organism 2. Morbid obesity 3. Chronic obstructive pulmonary disease with (acute) exacerbation 4. Iron deficiency anemia 5. Chronic respiratory failure 6. Pulmonary fibrosis Patient condition Improving Plan: continue current care This inpt stay is expected to cross 2 MNs from start of care Yes Antibiotic Stewardship (2) Infxn that will respond? Yes Right drug,dose,and route? Yes More targeted antbx? No at 0709
[2016-10-05 07:18] VITALS: BP 151/87
[2016-10-05 09:00] VITALS: BP 127/78
--- NOTE | 2016-10-05 10:29 | CONSULT NOTE ---
Pharmacokinetic Consult Date of consult: 10/05/16 Time of consult: 1026 Referring provider: DR. VALIENTE Reason for consult: GENTAMICIN TROUGH LEVEL Allergies: Coded Allergies: No Known Allergies (04/28/16) Home Medications: Active Scripts Prednisone (Deltasone) 20 MG PO DAILY #10 TAB Prov: 09/27/16 Reported Medications Ranolazine (Ranexa) 1,000 MG PO BID Metoprolol Tartrate (Lopressor) 25 MG PO BID #60 Gabapentin 300 MG PO BID #60 Omeprazole (Prilosec 20MG) 20 MG PO DAILY Leflunomide (Arava) 20 MG PO DAILY Alprazolam (Xanax 1MG) 1 MG PO TID #90 TAB Sertraline Hydrochloride (Sertraline 100MG) 100 MG PO DAILY #30 CLOPIDOGREL BISULFATE (Clopidogrel) 75 MG PO DAILY #30 MULTIVIT-MIN W/FE-FA ( Multivitamin Tablet) 1 TAB PO DAILY Montelukast Sodium (Singulair) 10 MG PO QHS HYDROCODONE/ACETAMINOPHEN (Hydrocodon-Acetaminophn 10-325) 1 TAB PO Q4HP PRN PAIN #150 TRAZODONE HCL (Trazodone HCl) 50 MG PO QHS ALBUTEROL-IPRATROPIUM (Combivent Inhaler) 1 PUFFS IN Q6H FLUTICASONE/SALMETEROL (Advair 250-50 Diskus) 1 PUFF IN BID Height (feet): 5 Height (inches): 8.00 Medical History: CAD? No Angina: No [place]: Yes Hypertension? Yes Hyperlipidemia? No CHF? No DVT? No PE? No COPD? Yes Asthma? Yes Anemia? Yes GERD? Yes Gastric ulcers? No GI Bleed? No Hernia? Yes Thyroid Problems? No Hypothyroidism? No CVA? No Seizures? No Diabetes? No Renal Insuffiency? No UTI? Yes Stones? Yes BPH? Yes GB Disease: No Nephritic Syndrome? No Asplenia? No Hepatitis? No Sickle Cell Disease? No Arthritis? Yes Migraines? No Cataracts? No Glaucoma? No MRSA? Yes HIV? No TB? No Anxiety? Yes Depression? Yes Cancer? No More? 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 Labs: Laboratory Tests 10/05/16 0950: Gentamicin Trough 0.5 Problem List: 1. Pneumonia due to Pseudomonas aeruginosa Plan: BASED ON GENTAMICIN TROUGH LEVEL, RECOMMEND CONTINUING GENTAMICIN 420 MG IV Q24H. PHARMACY WILL CONTINUE TO MONITOR DAILY AND ADJUST APPROPRIATE. at 1543
[2016-10-05 11:40] VITALS: BP 127/78
--- NOTE | 2016-10-05 13:52 | RADIOLOGY REPORT PS360 ---
CHEST(2 VIEWS-NOT PORTABLE) COMPARISON: Outside films of the chest 06/27/2012 HISTORY: Suspect pneumonia TECHNIQUE: PA and lateral chest FINDINGS: Prominent diffuse chronic interstitial fibrotic changes are seen throughout both lung connor. Without any recent films available for comparison is difficult to determine if there is acute superimposed pneumonic infiltrate present but I would tend to doubt it. There is a history of previous right sided pneumothorax and there is no pneumothorax seen on today's study. There is borderline cardiomegaly. The vascularity is difficult to evaluate because of the diffuse background interstitial changes but there is no obvious pulmonary congestion. Overall the chronic interstitial changes are stable and unchanged from the previous chest film May 2012 There are somewhat low lung volumes. There is a total right shoulder prosthesis. IMPRESSION: Fairly stable chronic diffuse interstitial changes, doubt acute chest pathology
[2016-10-05 15:45] VITALS: BP 139/81
[2016-10-05 19:38] VITALS: BP 102/73
[2016-10-06 00:07] VITALS: BP 135/77
[2016-10-06 03:24] VITALS: BP 146/87
--- NOTE | 2016-10-06 07:25 | ACUTE CARE PROGRESS NOTE (QUA) ---
Progress Notes Subjective Date 10/06/16 Time 0723 Note Patient does not have any complaints at. He continues to have cough but is hardly producing any sputum at all. He denies shortness of breath. He was able to ambulate in the hallway yesterday. He appears well and energetic. Lung exam reveals faint end expiratory wheeze heard in the posterior RIGHT upper lobe and in the bases. No rales or rhonchi. Heart has a regular rate and rhythm. Patient will finish 7 days of dual antibiotic coverage for pseudomonas today. After he receives his gentamicin this morning he may be discharged home. Objective Findings Last VS-Temp:98.2 B/P:146/87 Pulse:86 Resp:20 SaO2:97 OXYGEN Last weight lbs:251 oz:3 K.937 Method:Bed Scales Assessment/Plan Problem List 1. Pneumonia Qualifiers: Pneumonia type: due to unspecified organism Laterality: bilateral Lung location : unspecified part of lung Qualified Code: J18.9 - Pneumonia, unspecified organism 2. Morbid obesity 3. Chronic obstructive pulmonary disease with (acute) exacerbation 4. Iron deficiency anemia 5. Chronic respiratory failure 6. Pulmonary fibrosis Patient condition Improving Plan: initiate discharge plan This inpt stay is expected to cross 2 MNs from start of care Yes Antibiotic Stewardship (2) Infxn that will respond? Yes Right drug,dose,and route? Yes More targeted antbx? No at 0724
--- NOTE | 2016-10-06 07:27 | Discharge Summary ---
See Addendum Demographics Admit date: 09/28/16 Discharge date: 10/06/16 Discharge diagnoses Problem List 1. Pneumonia 2. Morbid obesity 3. Chronic obstructive pulmonary disease with (acute) exacerbation 4. Iron deficiency anemia 5. Chronic respiratory failure 6. Pulmonary fibrosis History of present illness History of present illness 60-year-old male with severe chronic obstructive pulmonary disease and pulmonary fibrosis presents to the emergency department one day after being discharged with worsening dyspnea. Patient had been hospitalized from September 23 to September 27 with a viral respiratory infection that exacerbated his chronic obstructive pulmonary disease. Patient had been discharged on September 27 when he was felt to be at baseline. Patient reports worsening shortness of breath since discharge with associated vomiting and diarrhea. He contacted my office this morning stating he was having difficulty urinating and decided to come to the emergency department. In the emergency department workup was begun which included a chest x-ray as well as a CT scan of the chest. CT scan shows small perihilar infiltrate superimposed upon his chronic changes. Patient has been given Levaquin and vancomycin and admitted for pneumonia. Patient was admitted on Levaquin and vancomycin and cefepime was then added due to his history of Pseudomonas. Within 48 hours sputum culture grew Pseudomonas with intermediate sensitivity to Levaquin. Antibiotics were changed to cefepime and gentamicin at this time. Patient was given duo nebs as well as intravenous steroids. Patient remained on this regimen with weaning of his steroids as his symptoms improved. Each day the patient gradually produce less sputum until his sputum was clear. At the time of discharge patient still had wheezing in the RIGHT upper lobe and bases that was faint. By the day of discharge the patient was able to ambulate the length of the hallway and back with the use of his oxygen and patient was kept on his other home medicines while hospitalized. On the after finishing 7 days of dual antibiotic coverage for his Pseudomonas he was discharged to home. Patient will follow my office on October 11 Medications Medications: Discharge meds are as noted. Follow up Follow up in office in: 5 DAYS with: Norm Perez MD at 2550
[2016-10-06 08:32] VITALS: BP 153/90
[2016-10-07] MEDS ORDERED: FUROSEMIDE 40MG40 M1 PO (18:07)
== END 2016-10-06 10:50 | disposition home health service (06) | DRG 194 ==
LOC: ER 09:35 → 2ND 15:06 → ER 15:06 → 2ND 15:51
PROVIDERS: Emergency Medicine; Family Medicine
DX: J18.9 Pneumonia, unspecified organism (principal); J96.10 Chronic respiratory failure, unspecified whether with hypoxia or hypercapnia; J84.9 Interstitial pulmonary disease, unspecified; Z68.41 Body mass index [BMI] 40.0-44.9, adult; J84.10 Pulmonary fibrosis, unspecified; J44.9 Chronic obstructive pulmonary disease, unspecified; G89.29 Other chronic pain; B97.19 Other enterovirus as the cause of diseases classified elsewhere; E66.01 Morbid (severe) obesity due to excess calories; Z99.81 Dependence on supplemental oxygen; M06.9 Rheumatoid arthritis, unspecified; B96.5 Pseudomonas (aeruginosa) (mallei) (pseudomallei) as the cause of diseases classified elsewhere
CPT/HCPCS: G0378; J0456; J3370; Q9967

== ENCOUNTER 2016-10-07 14:00 | Inpatient (IN) | payer MEDICARE, MEDICAID ==
[~2016-10-07] VITALS: Ht 172.7 cm; Wt 106.8 kg
[2016-10-07 14:03] VITALS: BP 95/70
--- OUTSIDE RECORDS SUMMARY | 2016-10-07 14:23 | External Medical Summary Rpt ---
Author Author , Organization [employer] Address Unknown Phone Unavailable Care Team Providers Care Human Capital Analyst Name Role Phone A Candice COLBERT MD PSC, A Unavailable Unavailable Candice COLBERT MD PSC MARTIN MCKINNEY Unavailable Unavailable REEMA ELDER, Unavailable Unavailable REEMA BOOTH [facility] Unavailable [facility] Unavailable [place], [facility] [place] [facility]YOO[facility] AND, AYOOB AND Unavailable Unavailable BENSADOUN NUVIA, Unavailable Unavailable BENSADOUN NUVIA BESSON KAMALA, BESSON Unavailable Unavailable KAMALA SOHEILA DEENA, Unavailable Unavailable SOHEILA DEENA [facility] Unavailable Unavailable SERVICE, [facility] Unavailable Unavailable SERVICE, [facility] CAMILLE KET, CAMILLE KET Unavailable Unavailable GRZEGORZ ROUGH PLANER TENDER, GRZEGORZ Unavailable Unavailable ROUGH PLANER TENDER TITI JAG, TITI Unavailable Unavailable FAUSTINO MCDOWELL, [...] NAN JESSICA VENUS, JESSICA Unavailable Unavailable VENUS [facility] Unavailable Unavailable HOSPITA, [facility] Unavailable Unavailable [facility]ITAL, [facility] Unavailable Unavailable [facility] Unavailable Unavailable INC, [facility] Un[facility] P, [facility] DUBOIS KAMALA, DUBOIS KAMALA Unavailable Unavailable RENA, MARIXA G, RENA, Unavailable Unavailable MARIXA G [facility], [facility] HARLEY OSCAR, Unavailable Unavailable [...] HOLDINGS, [facility], Unavailable Unavailable [facility] JUAN KAMALA, Unavailable Unavailable JUAN KAMALA TONO MARTINEZ, Unavailable Unavailable TONO MARTINEZ HAYWOOD MARION, HAYWOOD Unavailable Unavailable MARION JESICA JAM, JESICA JAM Unavailable Unavailable TIAGO JR DWI, TIAGO Unavailable Unavailable JR DWI LUKINS TIERRA, LUKINS Unavailable Unavailable TIERRA [facility] Unavailable Unavailable SERVICES, [facility] MAKSIM II, NESHA A, Unavailable Unavailable MAKSIM II, NESHA A THOMPSON JAM, Unavailable Unavailable THOMPSON RAMA WESTON, Unavailable Unavailable [facility]HIA WE[facility] Unavailable Unavailable OF THE B, [facility], Unavailable Unavailable [facility] ANUPAM SANCHES, Unavailable Unavailable MYRON, TADARRO RICHY HOLLIS G, Unavailable Unavailable RICHY HOLLIS MOE CHET, MOE CHET Unavailable Unavailable SEETHARMRAJU HAZEL, Unavailable Unavailable SEETHARMRAJU HAZEL JENNIFER BOSCH, Unavailable Unavailable JENNIFER BOSCH [facility] Unavailable Unavailable EQUIPME, [facility] Unavailable Unavailable [facility], [facility] TIM JUAREZ, Unavailable Unavailable TMI JUAREZ, Unavailable Unavailable SHAJI POWELL Unavailable Unavailable [facility], Unavailable Unavailable [facility] Unavailable Unavailable [facility] INTER GERALD MINA, Unavailable Unavailable [...] OBSTRUCTION MEDICAL NEC EQUIPME 515 POSTINFLAMM 03-19-2013 [facility] PULMONARY FOUNDATIO FIBROSIS 7245 UNSPECIFIED 03-19-2013 [facility] 95092 OTHER 03-19-2013 [place] DYSPNE[place] [address] OBSTRUCTIVE 03-10-2013 [facility] APNEA MEDICAL EQUIPME 15594 OTHER 03-07-2013 [place] DISEASES OF [facility] LUNG NOT INC ELSEWHERE CLASSIFIED 7242 LUMBAGO 03-06-2013 [facility] INC V571 OTHER 03-06-2013 [facility] THERAPY INC 04574 OTHER 03-01-2013 [place] [facility] CONDITIONS [facility] OF BRAIN FOUNDATIO 7140 RHEUMATOID 03-01-2013 [place] [facility] ARTHRITIS SERV [facility] 7840 HEADACHE 03-01-2013 [facility] 00774 DIARRHEA 03-01-2013 [facility] 7930 NONSPECIFIC 03-01-2013 [place] [facility] ABN FNDNG SERV RAD & OTH FOUNDATIO EXM SKULL & HEAD E8889 UNSPECIFIED 03-01-2013 [place] [facility] FALL [facility] 53027 OTHER 02-28-2013 [place] [facility] CHRONIC [facility] PAIN FOUNDAT[facility] 4019 UNSPECIFIED 02-28-2013 [place] [facility] ESSENTIAL SERV HYPERTENSIO FOUNDATIO N 26576 FEVER 02-28-2013 [place] [facility] UNSPECIFIED SERV F[facility] 38644 OTHER 02-28-2013 [facility] NONSPECIFIC SERV ABNORMAL FOUNDATIO FINDING OF LUNG FIELD 412 OLD 02-27-2013 [place] [facility]IAL [facility] INFAR[facility] 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 4829 UNSPECIFIED 02-27-2013 [facility] BACTERIAL AMBULANCE PNEUMONIA SERVICE 5184 UNSPECIFIED 02-27-2013 [facility] ACUTE SERV EDEMA OF FOUNDATIO LUNG 5849 ACUTE 02-27-2013 [place] KIDNEY [facility] FAILURE UNSPECIFIED 49018 RHEUMATOID 02-27-2013 [facility] V4361 SHOULDER 02-27-2013 [facility] REPLACEMENT FOUNDATIO BY OTHER MEANS V462 DEPENDENCE 02-27-2013 [facility] FOR [facility] L OXYGEN 68292 OBSTRUCTIVE 02-26-2013 [facility] P WITH EXACERBATIO N V5869 LONG-TERM 02-20-2013 [facility] OF USE OF [place] OTHER MEDICATIONS V6751 F/U EXAM 02-20-2013 [facility] FOLLOW CMPL [place] [facility] W/HIGH-RISK MED NEC 50540 COR 02-12-[address] [facility] UNSPEC TYPE VESSEL RUBY/RAUL T 4940 BRONCHIECTA 01-31-2013 [facility] SIS WITHOUT SERV ACUTE FOUNDATIO EXACERBATIO N 45907 IDIOPATHIC 01-31-2013 [facility]IB[facility] 7856 ENLARGEMENT 01-31-2013 [facility] OF LYMPH SERV NODES FOUNDATIO 93083 SHORTNESS 01-31-2013 [facility] OF BREATH SERV FOUNDATIO 13473 OTHER 01-31-2013 [facility] RESPIRATORY AMBULANCE SERVICE COMPLICATIO NS 0529 VARICELLA 01-06-2013 A Candice PINZON MD PSC MENTION OF COMPLICATIO N 7862 COUGH 01-06-2013 A Candice COLBERT MD PSC 4660 ACUTE 11-06-2012 A Candice COLBERT BRONCHITIS PSC V5812 ENCOUNTER 09-25-2012 [facility] ANTINEOPLAS [place] TIC IMMUNOTHERA PY 2859 UNSPECIFIED 08-31-2012 [facility] 4841 PNEUMONIA 08-31-2012 [facility] IN SERV CYTOMEGALIC FOUNDATIO INCLUSION DISEASE 5168 OTH SPEC 08-31-2012 [facility] ALVEOL&DEONNA SERV ETOALVEOL FOUNDATIO PNEUMONOPAT HIES 13001 NAUSEA WITH 08-02-2012 [facility] VOMITING SERV F[facility] V1209 PERSONAL HX 08-02-2012 [facility] OTH SERV INFECTIOUS& FOUNDATIO PARASITIC DISEASE 2724 OTHER AND 07-31-2012 [place] [facility] HY[facility] ALEKSANDAR 5589 OTH&UNSPEC 07-31-2012 [facility] NONINFECTIO SERV US FOUNDATIO GASTROENTER ITIS&COLITI S 74800 VOMITING 07-31-2012 [facility] INTER 66657 ABDOMINAL 07-31-2012 [facility] PAIN, SERV EPIGASTRIC FOUNDATIO 78332 SYSTEMIC 07-31-2012 [facility] Y RESPONSE SYNDROME UNSPEC V1269 PERSONAL 07-31-2012 [facility] HISTORY SERV OTHER FOUNDATIO DISEASES RESPIRATORY SYS 514 PULMONARY 07-03-2012 [facility] [place] [facility] RADIOLOGY AND HYPOSTASIS 7295 PAIN IN 07-03-2012 JERRI ESPERANZA SOFT TISSUES OF LIMB 7823 EDEMA 07-03-2012 JERRI ESPERANZA 5119 UNSPECIFIED 07-01-2012 [facility] PLEURAL RADIOLOGY EFFUSION 06855 OTHER 06-20-2012 [facility] DISEASES OF SERV NASAL FOUNDATIO CAVITY AND SINUSES 5121 IATROGENIC 06-16-2012 [facility] PNEUMOTHROA SERV X FOUNDATIO 43008 ACUTE AND 06-16-2012 [facility] CHRONIC SERV RESPIRATORY FOUNDATIO FAILURE 37709 SEPTIC 06-16-2012 [facility] SHOCK SERV FOUNDATIO 0785 CYTOMEGALOV 06-15-2012 [facility] 98517 CHEST PAIN 06-15-2012 [facility] OF THE B 7850 UNSPECIFIED 06-11-2012 [place] [facility] TACHYCARDIA FOUNDATIO 4279 UNSPECIFIED 05-17-2012 [facility] CARDIAC SERV DYSRHYTHMIA FOUNDATIO 08559 ACUTE 05-17-2012 [facility] RESPIRATORY SERV FAILURE FOUNDATIO 87651 OTHER 04-24-2012 [facility] BRUNILDA SEPTICEMIA 1124 CANDIDIASIS 04-24-2012 [facility] 5070 PNEUMONITIS 04-24-2012 [place] DUE TO HOSPITAL INHALATION OF FOOD OR VOMITUS 5100 EMPYEMA 04-24-2012 [facility] FISTULA 5183 PULMONARY 04-22-2012 [facility] 23289 REFLUX 08-03-2011 [place] ESOPHAGITIS KALYAN 11448 OTHER 08-03-2011 [facility] SYMPTOMS KALYAN INVOLVING DIGESTIVE SYSTEM OTHER 490 BRONCHITIS 07-13-2010 [place] NOT KALYAN SPECIFIED ACUTE OR CHRONIC 35020 ASTHMA, 07-13-2010 [facility] UNSPECIFIED KALYAN , UNSPECIFIED STATUS 94042 PAIN IN 07-08-2010 [facility] ANKLE AND FOOT 89763 DISORDER OF 07-08-2010 [facility] BONE AND SERV CARTILAGE FOUNDATIO UNSPECIFIED V454 ARTHRODESIS 07-08-2010 [place] [facility] STATUS [facility] V5489 OTHER 07-08-2010 [facility] AFTERCARE V5409 OTH 06-17-2010 [place] [facility] AFTERC[facility] SERV INVOLVING FOUNDATIO INTERNAL FIXATION DEVICE V6700 FOLLOW-UP 06-01-2010 [place] [facility] EXAMINATION SERV FOLLOWING FOUNDATIO UNSPEC SURGERY 94114 PRIMARY 05-12-2010 [place] [facility] LOCALIZED SERV OSTEOARTHRO FOUNDATIO SIS ANKLE AND FOOT 88092 PAIN IN 05-12-2010 [place] [facility], SERV LOWER LEG FOUNDATIO V0481 NEED 05-12-2010 [facility] C VACCINATION &INOCULATIO N FLU V5849 OTHER 05-12-2010 [place] [facility] SPECIFIED SERV AFTERCARE FOUNDATIO FOLLOWING SURGERY 4659 ACUTE URIS 04-17-2010 [place] OF K[place]YAN UNSPECIFIED SITE 93580 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 [facility] RHEUMATISM SERV ANKLE AND FOUNDATIO FOOT 28847 PAIN IN 04-02-2010 [facility] JOINT, AMERIC UPPER ARM HOLDING 47666 OBST 03-12-2010 [facility] P W/ACUTE BRONCHITIS 49538 PAINFUL 03-12-2010 [facility]ATION [facility]ERGENCY SERVICES 85459 UNSPECIFIED 05-20-2009 [facility] BANERJEE ARTHROPATHY SITE UNSPECIFIED 4011 ESSENTIAL 05-09-2009 [facility] HYPERTENSIO FAMILY PHYS N, BENIGN PSC 23931 OTHER CHEST 05-09-2009 [place] PAIN GEREMIAS V7651 SPECIAL 05-09-2009 [facility] BANERJEE FOR MALIGNANT NEOPLASMS COLON 7808 GENERALIZED 05-05-2009 [facility] BANERJEE HYPERHIDROS IS 5960 BLADDER 03-18-2009 [facility] [place] INC OBSTRUCTION 2720 PURE 03-17-2009 [place] HYPERCHOLES GEREMIAS TEROLEMIA 92170 ESOPHAGEAL 03-17-2009 [place] REFLUX GEREMIAS 77532 PRIMARY 03-17-2009 [facility] LOCALIZED GEREMIAS OSTEOARTHRO SIS OTH SPEC SITES 97810 OTH MECH 11-26-2008 [facility] INT ORTHOPEDIC DEVC IMPL&GFT 86189 OT COMPS 11-26-2008 [facility] DUE OTH SERV INTRL FOUNDATIO ORTHOPED DEVICE IMPL&GFT 7271 BUNION 11-11-2008 [facility] 02739 NONSPECIFIC 11-11-2008 [facility] ELECTROCARD IOGRAM V4589 OTHER 11-11-2008 [facility] L STATUS OTHER 32930 EFFUSION OF 09-19-2008 [facility] ORTHOPAEDIC SURGEONS PSC 86119 VILLONODULA 09-19-2008 [facility] H SYNOVITIS, ORTHOPAEDIC LOWER LEG SURGEONS PSC 5185 PULMONARY 05-16-2008 [facility] CY FOLLOW SERVICES [facility] SURGERY 86192 UNSPECIFIED 05-15-2008 [place] [facility] [place] [address] EXTRINSIC 11-02-2007 [facility], PHARMACY UNSPECIFIED 63733 OSTEOARTHRO 07-13-2007 MAKSIM II, SIS UNSPEC NESHA A WHETHER GEN/LOC ANK&FOOT 54827 TENOSYNOVIT 07-13-2007 MAKSIM II, IS OF FOOT NESHA A AND ANKLE E86.0 DEHYDRATION I45.10 UNSPECIFIED RIGHT BUNDLE-BRAN CH BLOCK J18.9 PNEUMONIA, UNSPECIFIED ORGANISM J40 BRONCHITIS, NOT SPECIFIED ACUTE OR CHRONIC J84.114 ACUTE INTERSTITIA L PNEUMONITIS J84.9 INTERSTITIA L PULMONARY DISEASE, UNSPECIFIED K57.92 DVTRCLI OF INTEST, PART UNSP, 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 W/O BLEED M48.06 SPINAL STENOSIS, LUMBAR REGION R10.9 UNSPECIFIED ABDOMINAL PAIN Allergies, Adverse Reactions, Alerts Type Allergy to [...] SerPl-mCnc (09-22-2016 14:15) NT-proB 492 0-899 complet [place] [facility] 017 pg/mL ed SerPl-m 14:15 Cnc Lactate [...] with AUTO DIFF (02-26-2013 22:55) WBC # 02-26-2 11.6 4.8-10. complet Bld 013 K/MM3 8 ed Auto 22:55 RBC # 4.49 4.6-6.2 complet Bld 013 M/mm3 ed [...] 013 4 ed T 22:55 VOLUME Granulo 30-2 68.9 % 37.0-80 complet cytes 013 .0 [...] mg/dL 1 ed SerPl-m 15:25 Cnc Prot 04-2 8.1 6.4-8.2 complet SerPl-m 013 gm/dL ed [...] Bld 013 M/mm3 ed Auto 15:25 Hgb 04-2 12.7 14.1-18 complet Bld-mCn 013 g/dL .0 ed c 15:25 Hct Fr 01-31-2 39.5 % 42.0-52 complet Bld 013 .0 ed 15:25 MCV RBC 04-2 88.5 fl 82.2-97 complet 013 .8 ed 15:25 MCH RBC -04-2 28.3 pg 27-31.2 complet Qn 013 ed Auto 15:25 MEAN 01-31-2 32.0 31.8-35 complet CORPUSC 013 g/dl .4 [...] complet Qn 013 ed Auto 15:00 MEAN 08-09-2 32.5 31.8-35 complet CORPUSC 013 g/dl .4 [...] 013 0 ed Bld 15:00 Auto Basophi 2 0.8 % 0.1-2.0 complet ls Fr 013 ed Bld 15:00 Auto Granulo 4.9 1.3-8.0 complet cytes # 013 K/mm3 ed Bld 15:00 Auto Lymphoc 01-05-2 2.8 0.7-4.5 complet ytes Fr 013 K/mm3 ed Bld 15:00 Auto Monocyt 01-05-2 0.5 0.1-1.0 complet es # 013 K/mm3 ed Bld 15:00 Auto Eosinop 2 0.3 0.0-0.4 complet hil # 013 K/mm3 ed Bld 15:00 Auto Basophi 01-05-2 0.1 0-0.2 complet ls # 013 K/MM3 ed Bld 15:00 Auto Procedures Procedure DOS Code Location Performer Comment PRTBLE E0431 [facility] GASEOUS 4 HOME HOME O2 SYS MEDICAL MEDICAL RENT; EQUIPME EQUIPME FLWMTR HUMIDFR&M ASK O2 CONC 1 E1390 A[facility]LIN VIERA DEL PORT 4 HOME HOME 85%/>02 MEDICAL MEDICAL CONC AT EQUIPME EQUIPME PRSC FLW RATE PULMONARY 57856 [facility] STRESS 3 Y Y TESTING [facility] SIMPLE SPMTRY 03364 TARAS BENSADOUN W/VC 3 MEDICAL NUVIA EXPIRATOR [...] COMPRESSO MEDICAL MEDICAL R EQUIPME EQUIPME THERAPEUT 36459 [place] P[place] 1/> 3 [facility] AREAS INC INC EACH 15 MIN EXERCISES E-STIM G0283 [place] [facility] 1/> AREAS 3 [facility]OS[facility] OTH THAN INC INC WND CARE PART TX PLAN E-STIM G0283 [place] [facility] 1/> AREAS 3 [facility] HOSP OTH THAN INC INC WND CARE PART TX PLAN THERAPEUT 06273 [place] [facility] [place] 1/> 3 [facility]OS[facility] AREAS INC INC EACH 15 MIN EXERCISES APPLICATI 45364 [place] ON 3 [facility] MODALITY INC INC 1/> AREAS HOT/COLD PACKS CONTINUOU E0601 [facility] VIERA S 3 HOME HOME POSITIVE MEDICAL MEDICAL AIRWAY EQUIPME EQUIPME PRESSURE DEVICE THERAPEUT 55895 [place] 1/> 3 [facility]OS[facility] AREAS INC INC EACH 15 MIN EXERCISES E-STIM G0283 [place] [facility] 1/> AREAS 3 [facility]OS[facility] OTH THAN INC INC WND CARE PART TX PLAN CUL BACT 51671 [place] [facility] XCPT 3 [facility] URINE INC INC BLOOD/STO OL AEROBIC ISOL SMR PRIM 44665 [place] [facility] SRC 3 [facility] GRAM/GIEM INC INC SA STAIN BCT FUNGI/LEONIDES L SPUTUM 67340 [place] [facility] OBTAINING 3 [facility] SPEC INC INC AEROSOL INDUCED TX SPX THERAPEUT 46051 [place] [place] 1/> 3 [facility]OS[facility] AREAS INC INC EACH 15 MIN EXERCISES E-STIM G0283 [place] [facility] 1/> AREAS 3 [facility] OTH THAN [place] [address] TARAS MCCOY HEAD/BRAI 3 MEDICAL N W/O SERV CONTRAST FOUNDATIO MATERIAL RADIOLOGI 82519 [place] KAMAL[place] C EXAM 3 MEDICAL CHEST 2 SERV VIEWS FOUNDATIO FRONTAL&L ATERAL SBSQ 11946 [facility] 3 MEDICAL PRE CARE/DAY SERV 25 FOUNDATIO MINUTES SBSQ 32381 [facility] 3 MEDICAL PRE CARE/DAY SERV 25 FOUNDATIO MINUTES RADIOLOGI 69250 [place] C EXAM 3 MEDICAL CHEST 2 SERV VIEWS FOUNDATIO FRONTAL&L ATERAL IAADI 22187 [place] [facility] INFLUENZA 3 [facility] B VIRUS INC INC IAADI 40547 [place] INFFLUENZ 3 [facility] A A VIRUS INC INC SUSCEPTIB 23344 [place] LTY STDY 3 [facility] ANTIMICRB INC INC IAL MICRO/AGA R DILUTJ SMR PRIM 67168 [place] SRC 3 [facility] GRAM/GIEM INC INC SA STAIN BCT FUNGI/LEONIDES L CUL BACT 24835 [place] AEROBIC 3 [facility] ADDL INC INC METHS DEFINITIV E EA ISOL CUL BACT 94878 [place] XCPT 3 [facility] URINE INC INC BLOOD/[place] [address] [place] INFUSION 3 [facility] THERAPY INC INC PROPHYLAX IS/DX EA HOUR AMB A0427 [facility] SERVICE 3 AMBULANCE AMBULANCE ALS SERVICE SERVICE EMERGENCY TRANSPORT LEVEL 1 INITIAL 75498 [facility] 3 MEDICAL PRE CARE/DAY SERV 70 FOUNDATIO MINUTES RADIOLOGI 56846 [place] AYOOB AND C 3 MEDICAL EXAMINATI SERV [place] [address] [place] [facility] INFUSION 3 [facility] THER INC INC PROPH ADDL SEQUENT[place] L TO [place] [address] [place] [facility] INFUSION 3 [facility] THERAPY/P INC INC ROPHYLAXI S /DX 1ST TO 1 HR GROUND A0425 [facility] 3 AMBULANCE AMBULANCE PER SERVICE SERVICE STATUTE MILE BLOOD 36858 [place] [facility] GASES ANY 3 [facility] H[facility]OS[facility] INC INC COMBINATI ON PH PCO2 PO2 CO2 HCO3 RADIOLOGI 48354 [place] C 3 [facility]OS[facility] EXAMINATI INC INC ON [place]ST [place] FRONTAL THERAPEUT 22366 [place] PX 1/> 3 [facility] HOS[facility] HOS[facility] AREAS INC INC EACH 15 MIN EXERCISES PHYSICAL 67985 [place] THERAPY 3 [facility] EVALUATIO INC INC N CRITICAL 58399 [place] [facility] CARE 3 [facility] ILL/INJUR INC INC ED PATIENT INIT 30-74 MIN BASIC 31629 [place] [facility] METABOLIC 3 [facility]OS[facility] PANEL INC INC CALCIUM TOTAL CREATINE 81562 [place] [facility] KINASE 3 [facility] HOS[facility]OS[facility] TOTAL INC INC CULTURE 10733 [place] [facility] BACTERIAL 3 [facility] BLOOD INC INC AEROBIC W/[place] [address] [place] [facility] TROPONIN 3 [facility] H[facility] QUANTITAT INC INC COURTNEY BLOOD 77675 [place] [facility] COUNT 3 [facility]OS[facility] COMPLETE INC INC AUTO&AUTO DIFRNTL WBC E-STIM G0283 [place] [facility] 1/> AREAS 3 MEM HOS[facility]OS[facility] OTH THAN INC INC WND CARE PART TX PLAN ECG 03248 [place] [facility] ROUTINE 3 [facility] W/LEAST P 12 LDS I&R ONLY ECG 20526 [place] ROUTINE 3 [facility]OS[facility] ECG INC INC W/LEAST 12 LDS TRCG ONLY W/O I&R CREATINE 33242 [place] KINASE MB 3 [facility] HOS[facility] FRACTION INC INC ONLY COMPREHEN 46505 [facility] SIVE 3 [facility] MET[facility]OL[facility] HOLDINGS PANEL C-REACTIV 21625 [facility] E PROTEIN 3 [facility] BLOOD 24351 [facility] COUNT 3 [facility] [place] COM[facility] AUTOMATED COLLECTIO 10001 [facility] N VENOUS 3 [facility] [place] BLO[facility] HOLDINGS VENIPUNCT URE PRTBLE E0431 [facility] VIER[facility] GASEOUS 3 HOME HOME O2 SYS MEDICAL MEDICAL RENT; EQUIPME EQUIPME FLWMTR HUMIDFR&M ASK O2 CONC 1 E1390 AYLIN VIERA DEL PORT 3 HOME HOME 85%/>02 MEDICAL MEDICAL CONC AT EQUIPME EQUIPME PRSC FLW RATE NEBULIZER E0570 A[facility] AYLIN WITH 3 HOME HOME [facility] [place] [address] TARAS OBRIEN KET DIFFUSING 3 MEDICAL CAPACITY SERV FOUNDATIO GASES 61413 [facility] BLOOD PH 3 Y Y DIRECT HOSPITAL HOSPITAL ANSHU XCPT PULSE OXIMITRY PULMONARY 99570 [place] STRESS 3 MEDICAL TESTING SERV SIMPLE FOUNDATIO PLETHYSMO 73435 [place] GRAPHY 3 MEDICAL MEDICAL LUNG SERV SERV VOLUMES FOUNDATIO FOUNDATIO W/WO AIRWAY RESIST ARTERIAL 24422 [facility] PUNCTURE 3 Y Y WITHDRAWA [facility] L BLOOD DX [facility] THORAX 71793 [facility] W/O 3 Y Y CONTRAST [facility] MATERIAL SPMTRY 31152 [place] KET W/VC 3 MEDICAL EXPIRATOR SERV Y RACHEL FOUNDATIO W/WO MXML VOL VNTJ CONTINUOU E0601 A[facility]LIN VIERA S 3 HOME HOME POSITIVE MEDICAL MEDICAL AIRWAY EQUIPME EQUIPME PRESSURE [facility] 42387 [place] SEETHARMR DISCHARGE 3 MEDICAL AJU HAZEL DAY SERV MANAGEMEN FOUNDATIO T 30 MIN/< THER 04181 [place] [facility] PROPH/DX 3 [facility] NJX IV INC INC PUSH SINGLE/1S T SBST/DRUG RADIOLOGI 55463 [place] [facility] C 3 [facility] EXAMINATI INC [place] [address] TARAS JESICA ONTIVEROS ANGIOGRAP 3 MEDICAL HY CHEST SERV W/CONTRAS FOUNDATIO T/NONCONT RAST GROUND A0425 [facility] MILEAGE 3 AMBULANCE AMBULANCE PER SERVICE SERVICE STATUTE MILE AMBULANCE A0429 [facility] SERVICE 3 AMBULANCE AMBULANCE BLS SERVICE SERVICE EMERGENCY TRANSPORT PRESSURIZ 72863 [place] [facility] ED/NONPRE 3 [facility] SSURIZED INC INC INHALATIO N TREATMENT ECG 02356 [facility] ROUTINE 3 EMERGENCY ECG SERVICES W/LEAST 12 LDS I&R ONLY RADIOLOGI 43992 [place] [facility] C EXAM 3 [facility] CHEST 2 INC INC VIEWS FRONTAL&L ATERAL ECG 00767 [place] [facility] ROUTINE 3 [facility] ECG INC INC W/LEAST 12 LDS TRCG ONLY W/O I&R BLOOD 57751 [place] [facility] COUNT 3 [facility] COMPLETE INC INC AUTO&AUTO DIFRNTL WBC CUL BACT 31645 [place] AEROBIC 3 [facility] ADDL INC INC METHS DEFINITIV E EA ISOL CULTURE 07474 [place] BACTERIAL 3 [facility] BLOOD INC INC AEROBIC W/ID ISOLATES CUL BACT 88177 [place] XCPT 3 [facility] URINE INC INC BLOOD/STO OL AEROBIC ISOL SMR PRIM 89704 [place] SRC 3 [facility] GRAM/GIEM INC INC SA STAIN BCT FUNGI/LEONIDES L SUSCEPTIB 30172 [place] LTY STDY 3 [facility] ANTIMICRB INC INC IAL MICRO/AGA R DILUTJ COMPREHEN 47245 [place] SIVE 3 [facility] METABOLIC INC INC PANEL PHRM Q0513 YOUR YOUR DISPENSIN 3 PHARMACY PHARMACY G FEE [facility] INHALATIO N RX; PER 30 DAYS ADMN SET [id number] YOUR YOUR SM VOL 3 PHARMACY PHARMACY NONFILTR [facility] PNEUMAT NEBULIZR DISPBL ALBUTEROL J7620 YOUR YOUR TO 2.5 3 PHARMACY PHARMACY [facility] IPRATROPI UM BROM TO 0.5 MG O2 CONC 1 E1390 AYLIN ROLAND PORT 3 HOME HOME 85%/>02 MEDICAL MEDICAL CONC AT EQUIPME EQUIPME PRSC FLW RATE PRTBLE E0431 AYLIN VIERA GASEOUS 3 HOME HOME O2 SYS MEDICAL MEDICAL RENT; EQUIPME EQUIPME FLWMTR HUMIDFR&M ASK NEBULIZER E0570 AYLIN VIERA WITH 3 HOME HOME COMPRESSO MEDICAL MEDICAL R EQUIPME EQUIPME RADIOLOGI 54248 [place] C EXAM 3 [facility] CHEST 2 INC INC VIEWS FRONTAL&L ATERAL CONTINUOU E0601 AYLIN VIERA S 3 HOME HOME POSITIVE MEDICAL MEDICAL AIRWAY EQUIPME EQUIPME PRESSURE DEVICE CREATINE 93311 [place] KINASE MB 3 [facility] FRACTION INC INC ONLY COMPREHEN 18215 [place] SIVE 3 [facility] METABOLIC INC INC PANEL ECG 99412 [place] ORDOÑEZ JR ROUTINE 3 [facility] W/LEAST P 12 LDS I&R ONLY RHYTHM 75842 [place] ECG 1-3 3 [facility] LEADS INC INC TRACING ONLY W/O I&R ECG 88845 [place] ROUTINE 3 [facility] ECG INC INC W/LEAST 12 LDS TRCG ONLY W/O I&[place] [address] [place] HEAD/BRAI 3 [facility] N W/O INC INC CONTRAST MATERIAL BLOOD 15104 [place] COUNT 3 [facility] COMPLETE INC INC AUTO&[place] [address] [place] TROPONIN 3 [facility] QUANTITAT INC INC COURTNEY CREATINE 17370 V[place] KINASE 3 [facility] TOTAL INC INC 3D 05395 [place] RENDERING 3 [facility] W/INTERP INC INC & POSTPROCE SS SUPERVISI ON O2 CONC 1 E1390 AYLIN ROLAND [place] 3 HOME HOME 85%/>02 MEDICAL MEDICAL [...] HR PER SESS TO 2 PER DAY CONTINU E0601 AYLIN VIERA S 3 HOME HOME [...] PER SESS TO 2 PER DAY BLOOD 63342 LAB HEIDI LAB HEIDI COUNT 3 AMERIC AMERIC COMPLETE HOLDING HOLDING AUTOMATED COLLECTIO 71928 LAB [facility] HEIDI N VENOUS 3 AMERIC AMERIC BLOOD HOLDING HOLDING VENIPUNCT URE C-REACTIV 87976 LAB [facility] LAB HEIDI E PROTEIN 3 AMERIC AMERIC HOLDING HOLDING COMPREHEN 78456 LAB HE[facility] LAB HEIDI SIVE 3 AMERIC [...] PER SESS TO 2 PER DAY POLYSOM 30409 [place] COLE[place] 6/>YRS 3 [facility] MEM [...] TO 2 PER DAY PULM G0424 [place] CLOEMAN REHAB 3 [facility] INCL [...] HOME R MEDICAL MEDICAL EQUIPME EQUIPME GAS 73437 [place] DILUT/WAS 3 [facility] MEM [...] AT EQUIPME EQUIPME PRSC FLW RATE BRNCDILAT 67756 VIRGINIASULEMAN COLEMAN RSPSE 3 [facility] SPMTRY INC INC PRE&POST- BRNCDILAT ADMN RADIOLOGI 03709 [place] ISA SARAH C EXAM 3 MEDICAL CHEST 2 SERV VIEWS FOUNDATIO FRONTAL&L ATERAL COLLECTIO 17813 [facility] N VENOUS 3 Y Y BLOOD [facility] VENIPUNCT URE RHEUMATOI [address] [facility] FACTOR 3 Y [facility]ALBUM[facility] 82747 [facility] N 3 Y Y [facility] BLOOD 11134 [facility] COUNT 3 Y Y [facility]PITAL AUTO&AUTO DIFRNTL WBC ANTINUCLE 98071 [facility] AR 3 [facility] HOLD[facility] S [place] FLUORESCE 49365 [facility] NT 3 Y Y NONNFCT [facility] AGT ANTB SCREEN EA ANTIBODY CYANOCOBA 21559 [facility] CLARISSE 3 Y Y VITAMIN [facility] B-12 IRON 07319 [facility] BINDING 3 Y [facility] COMPREHEN 36709 [facility] SIVE 3 Y Y METABOLIC [facility] [place] [address] [facility] FOLIC 3 Y Y ACID RBC [facility] STANDARD K0001 AYLIN VIERA WHEELCHAI 3 HOME [...] AT EQUIPME EQUIPME PRSC FLW RATE POLYSOM 09604 [place]IR[place] 6/>YRS 3 MEM HOS[facility]OS[facility] SLEEP INC INC W/CPAP 4/> ADDL [facility] 85430 [facility] 3 MEDICAL JAG DAY SERV MANAGEMEN FOUNDATIO T 30 MIN/< SBSQ 10328 [facility] 3 MEDICAL JAG CARE/DAY SERV 25 FOUNDATIO MINUTES RADEX ABD 21454 [place] DISANTIS COMPL 3 MEDICAL SIDDHARTHA AQT ABD SERV W/S/E/D FOUNDATIO VIEWS 1 VIEW CH RADEX ABD 63361 [place] JESICA JAM COMPL 3 MEDICAL AQT ABD SERV W/S/E/D [place] [address] [place] SOHEILA ABDOMINAL 3 MEDICAL DEENA REAL SERV TIME FOUNDATIO W/IMAGE LIMITED INITIAL 40980 [facility] 3 Y OF MARION CARE/DAY [place] 70 INTER MINUTES FULL FACE A7030 AYLIN [...] HOME COMPRESSO MEDICAL MEDICAL R EQUIPME EQUIPME WALKER E0143 AYLIN VIERA FOLDING 3 HOME HOME WHEELED MEDICAL MEDICAL ADJUSTABL EQUIPME EQUIPME E/FIXED HEIGHT SEAT E0156 AYLIN VIERA ATTACHMEN 3 HOME HOME T WALKER MEDICAL MEDICAL EQUIPME EQUIPME DUP-SCAN 26301 JERRI JERRI XTR VEINS 3 ESPERANZA ESPERANZA COMPLETE BILATERAL STUDY RADIOLOGI 91376 [facility] [place] KOSTELIC C EXAM 3 RADIOLOGY MONTSERRAT CHEST 2 VIEWS FRONTAL&L ATERAL RADIOLOGI 78823 [facility] [place] NOEL C EXAM 3 RADIOLOGY GODFREY CHEST 2 VIEWS FRONTAL&L ATERAL MRI BRAIN 13405 [place] LUKINS BRAIN 3 MEDICAL TIERRA STEM W/O SERV CONTRAST FOUNDATIO MATERIAL SBSQ 75070 [facility] 3 E CARE CARE/DAY CTR OF 15 THE B MIN[facility]ES [facility] 80327 [place] INCL 3 MEDICAL OSCAR FLUOR SERV GDNCE DX FOUNDATIO W/CELL WASHG SPX SBSQ 02563 [facility] 3 E CARE CARE/DAY CTR OF 25 THE B MINUTES CLOSED 3324 [facility] BIOPSY OF 3 Y Y BRONCHUS [facility] VENOUS 3893 [facility] CATHETERI 3 Y [facility] NOT ELSEWHERE CLASSIFIE D ECG 62809 [place] ROQUE CHI ROUTINE 3 MEDICAL ECG SERV W/LEAST FOUNDATIO 12 LDS I&R ONLY ECG 64067 TARAS HU ROUTINE 3 MEDICAL NAN ECG SERV W/LEAST FOUNDATIO 12 LDS I&R ONLY CONTINUOU E0601 AYLIN VIERA S 2 HOME HOME POSITIVE MEDICAL MEDICAL AIRWAY EQUIPME EQUIPME PRESSURE DEVICE THORACOSC 3320 [facility] LUNG 2 Y Y UAB HOSPITAL STANDARD K0001 AYLIN YOUNGCHAI 2 HOME HOME R MEDICAL MEDICAL EQUIPME EQUIPME ECG 79036 TARAS NEVAREZ CHI ROUTINE 2 MEDICAL ECG SERV W/LEAST FOUNDATIO 12 LDS I&R ONLY ECG 92119 TARAS ROSA CHET ROUTINE 2 MEDICAL ECG SERV W/LEAST FOUNDATIO 12 LDS I&R ONLY ECG 26115 TARAS NEVAREZ CHI ROUTINE 2 MEDICAL ECG SERV W/LEAST FOUNDATIO 12 LDS I&R ONLY ECG 22204 TARAS HU ROUTINE 2 MEDICAL NAN ECG SERV W/LEAST FOUNDATIO 12 LDS I&R ONLY INSERTION 9604 [facility] OF 2 Y Y [facility] EAL TUBE CONT 9671 [facility] 2 Y Y [facility] < 96 CONSECUTI VE HOURS RADIOLOGI 47014 [facility] 2 MEDICAL TIERRA EXAMINATI IMAGING ON CHEST ASS SINGLE VIEW FRONTAL RADIOLOGI 59933 [facility] 2 MEDICAL TIERRA EXAMINATI IMAGING ON CHEST ASS SINGLE VIEW FRONTAL ALBUTEROL J7620 YOUR YOUR TO 2.5 2 PHARMACY PHARMACY [facility] IPRATROPI UM BROM TO 0.5 MG ADMN SET A7003 YOUR YOUR SM VOL 2 PHARMACY PHARMACY NONFILTR LLC LLC PNEUMAT NEBULIZR DISPBL PHARM G0333 YOUR YOUR DISPEN 2 PHARMACY PHARMACY FEE [employer] [facility] RX; INITIAL 30-DAY SUPPLY RADIOLOGI 00003 [facility] EXAM 2 MEDICAL TIERRA CHEST 2 IMAGING VIEWS ASS FRONTAL&L ATERAL ECG 53158 POPPY KEENE ROUTINE 2 EMERGENCY VENUS ECG SERVICES W/LEAST 12 LDS I&R ONLY SMR PRIM 35344 [facility] CPLX 2 N N SPEC [facility] HOSPITA OVA&CHAD ITS OVA&CHAD 19144 [facility] ITES 2 N N DIRECT [facility] HOSPITA CONCENTRA TION & ID SMR PRIM 70784 [facility] SRC 2 N N GRAM/GIEM [facility] HOSPITA BCT FUNGI/LEONIDES L BLOOD 55325 [facility] OCCULT 2 N N PEROXIDAS [facility] HOSPITA QUAL FECES 1-3 SPEC BLOOD 71944 [facility]ERT[facility] OCCULT 2 N KALYAN N KALYAN PEROXIDAS E ACTV QUAL FECES 1 DETER BLOOD 42176 LAB HEIDI LAB HEIDI COUNT 2 AMERIC AMERIC COMPLETE HOLDING HOLDING AUTOMATED C-REACTIV 60443 LAB HEIDI LAB HEIDI E PROTEIN 2 AMERIC AMERIC HOLDING HOLDING COLLECTIO 47296 LAB HEIDI LAB HEIDI N VENOUS 2 AMERIC AMERIC BLOOD HOLDING HOLDING VENIPUNCT URE COMPREHEN 10818 LAB HEIDI LAB HEIDI SIVE 2 AMERIC AMERIC METABOLIC HOLDING HOLDING PANEL COMPREHEN 05735 LAB HEIDI LAB HEIDI SIVE 1 AMERIC AMERIC METABOLIC HOLDING HOLDING PANEL C-REACTIV 45871 LAB HEIDI LAB HEIDI E PROTEIN 1 AMERIC AMERIC HOLDING HOLDING COLLECTIO 17062 LAB HEIDI LAB HEIDI N VENOUS 1 AMERIC AMERIC BLOOD HOLDING HOLDING VENIPUNCT URE BLOOD 10010 LAB HEIDI LAB HEIDI COUNT 1 AMERIC AMERIC COMPLETE HOLDING HOLDING AUTOMATED RADEX 41502 [place] KAPOOR JAM ANKLE 1 MEDICAL COMPLETE SERV MINIMUM 3 FOUNDATIO VIEWS WALKING L4360 DJO, Max[employer] DJO, [employer] BOOT 1 PNEUMATC &/ VACUUM PREFAB CUSTM FIT COLLECTIO 36371 [facility] N VENOUS 1 [facility] INC BLOOD VENIPUNCT URE LIPID 76428 [facility] PANEL 1 [facility] INC TRANSFERA 98297 [facility] SE 1 Info INC Info INC ASPARTATE AMINO AST SGOT RADIOLOGI 97752 [facility] 1 Y Y [facility] ON FOOT 2 VIEWS APPLICATI 93678 [place] ON SHORT 1 MEDICAL MEDICAL LEG CAST SERV SERV WALKING/A FOUNDATIO FOUNDATIO MBULATORY CAST Q4038 TARAS MARTINEZ SUPPLIES 1 MEDICAL KAMALA SHORT LEG SERV CAST FOUNDATIO ADULT FIBERGLAS S CAST Q4038 TARAS MARTINEZ SUPPLIES 1 MEDICAL KAMALA SHORT LEG SERV CAST FOUNDATIO ADULT FIBERGLAS S APPLICATI 51910 TARAS GRAJEDA ON SHORT 1 MEDICAL MEDICAL LEG CAST SERV SERV BELOW FOUNDATIO FOUNDATIO KNEE-TOE PHYSICAL 49245 [facility] THERAPY [address] [facility] G0378 [facility] OBSERVATI 0 Y Y ON HOSPITAL HOSPITAL SERVICE PER HOUR ANESTHESI 41918 TARAS GERALD A ON BONY 0 [place] [address] TARAS GERALD GUIDANCE 0 MEDICAL JUS NEEDLE SERV PLACEMENT FOUNDATIO IMG S&I ARTHRODES 82615 TARAS MARTINEZ IS 0 MEDICAL [place]AM[place] SUBTALAR SERV FOUNDATIO BONE 94183 TARAS MARTINEZ GRAFT ANY 0 MEDICAL KAMALA DONOR SERV AREA FOUNDATIO MAJOR/LAR GE FLUOROSCO 49627 [facility] PY SPX >1 0 Y [facility] PHYS/QHP TIME INJECTION 07810 TARAS MADELAINECOTT 0 MEDICAL JUS ANESTHETI SERV C AGENT FOUNDATIO SCIATIC NRV SINGLE INJECTION 78899 TARAS MADELAINECOKAVEH 0 MEDICAL JUS ANESTHETI SERV C AGENT FOUNDATIO FEMORAL NERVE SINGLE CUL BACT 18061 LAB HEIDI LAB HEIDI XCPT 0 AMERIC AMERIC URINE HOLDING HOLDING BLOOD/STO OL AEROBIC ISOL CULTURE 75573 LAB HEIDI LAB HEIDI BACTERIAL 0 AMERIC AMERIC ANY HOLDING HOLDING SOURCE ANAEROBIC ISO&ID SMR PRIM 73240 LAB HEIDI LAB HEIDI SRC 0 AMERIC AMERIC GRAM/GIEM HOLDING HOLDING SA STAIN BCT FUNGI/[place] [address] [place] TROPONIN 0 [facility] QUANTITAT INC INC COURTNEY BLOOD 79733 [place] COUNT 0 [facility] COMPLETE INC INC AUTO&AUTO DIFRNTL WBC ECG 61969 [place] ROUTINE 0 [facility]OS[facility] ECG INC INC W/LEAST 12 LDS TRCG ONLY W/O I&R ECG 30833 [place] MCKEMIE ROUTINE 0 [facility] W/LEAST P 12 LDS I&R ONLY PRESSURIZ 78828 [place] ED/NONPRE 0 [facility] SSURIZED INC INC INHALATIO N TREATMENT BASIC 57430 [place] METABOLIC 0 [facility] PANEL INC INC CALCIUM TOTAL CREATINE 52264 [place] KINASE 0 [facility] TOTAL INC INC THER 46126 [place]IASULEMAN COLEMAN PROPH/DX 0 [facility] NJX IV INC INC PUSH SINGLE/1S T SBST/DRUG RADIOLOGI 13042 [place] DAWNA C 0 MEDICAL TIERRA EXAMINATI IMAGING ON CHEST ASS SINGLE VIEW FRONTAL CREATINE 96401 [place] KINASE MB 0 [facility] FRACTION INC INC ONLY CT LOWER 65827 [place] EXTREMITY 0 [facility] W/O INC INC CONTRAST MATERIAL 3D 52603 [place] RENDERING 0 [facility] INC INC W/INTERP& POSTPROC DIFF WORK STATION DUP-SCAN 05058 [place] XTR VEINS 0 [facility] INC INC UNILATERA L/LIMITED STUDY INJECTION J1040 MONICA ANDERSON 9 N, GEREMIAS DOUGHERTY METHYLPRE DNISOLONE ACETATE 80 MG CV STRS 69763 MONICA ANDERSON TST 9 N, GEREMIAS DOUGHERTY XERS&/OR RX CONT ECG W/O I&R CV STRS 52473 [facility] TST 9 N N XERS&/OR COMMUNITY COMMUNITY RX CONT [facility] ECG TRCG ONLY MYOCRD 84248 [facility] N FAMILY DHILL[facility] WALL PHYS PSC MOTION QUAL/RENEE STD MYOCRD 24219 [facility] DELILAH AVENDANO STD 9 N FAMILY DHILL[place] EJEC FXJ PHYS PSC TECHNETIU A9500 [facility] TC-99M 9 N N SESTAMIBI [facility] COMMUNITY DX PER HOSPITAL HOSPITAL STUDY DOSE BLOOD 57545 MONICA ANDERSON OCCULT 9 Lily, GEREMIAS DOUGHERTY PEROXIDAS E ACTV QUAL FECES 1 DETER MYOCRD 18034 [facility] PRFUJ IMG 9 N N TOMOG [facility] S[facility] STD CV STRS 27861 MONICA ANDERSON TST 9 GEREMIAS Bautista ROBERT XERS&/OR RX CONT ECG I&R ONLY IRON 22283 [facility] BINDING 9 [facility] CAPACITY COLLECTIO 73425 [facility] N VENOUS 9 [facility] [place] [address] [facility] IRON 9 [facility] COLLECTIO 45619 [facility] N VENOUS 9 [facility] BLOOD VENIPUNCT URE BLOOD 72387 [facility] COUNT 9 [facility] COMPLETE AUTO&AUTO DIFRNTL WBC INFLUENZA G9141 MONICA ANDERSON A H1N1 9 N, GEREMIAS DOUGHERTY IMMUNIZAT ION ADMINISTR ATION PWR E2365 ALLIED ALLIED WHLCHAIR 9 HOME HOME ACSS U-1 MEDICAL, MEDICAL, SEALED INC. INC. LEAD ACID BATTRY EA REPR/SRVC K0739 ALLIED ALLIED DME NOT 9 HOME HOME O2 RQR MEDICAL, MEDICAL, TECH INC. INC. CMPNT PER 15 MINS CULTURE 31282 LAB HE[facility]I LAB HEIDI BACTERIAL 9 AMERIC AMERIC ANY HOLDING HOLDING SOURCE ANAEROBIC ISO&ID CUL BACT 10179 LAB HE[facility]I LAB HEIDI XCPT 9 AMERIC AMERIC URINE HOLDING HOLDING BLOOD/STO OL AEROBIC ISOL SUSCEPTIB 68780 LAB HE[facility]I LAB HEIDI LTY STDY 9 AMERIC AMERIC ANTIMICRB HOLDING HOLDING IAL MICRO/AGA R DILUTJ SMR PRIM 40398 LAB HEIDI LAB HEIDI SRC 9 AMERIC AMERIC GRAM/GIEM HOLDING HOLDING SA STAIN BCT FUNGI/[place] [address] [facility] PROSTATE 9 [facility] SPECIFIC ANTIGEN TOTAL COLLECTIO 25520 [facility] N VENOUS 9 [facility] BLOOD VENIPUNCT URE LIPID 30349 [facility] PANEL 9 [facility] INC COMPREHEN 19534 [facility] SIVE 9 [facility] METABOLIC PANEL FLUOROSCO 16676 [facility] PY SPX >1 [facility] PHYS/QHP TIME INJECTION J3010 [facility] FENTANYL 9 Y Y CITRATE [facility] 0.1 MG REMOVAL 64204 TARAS JUAN, IMPLANT 9 MEDICAL TONO J DEEP SERV [place] I 82629 TARAS ROBERTOULL, SURG 9 MEDICAL FAUSTINO PATHOLOGY SERV GROSS FOUNDATIO EXAMINATI ON ONLY INJECTION J2175 [facility] 9 Y Y MEPERIDIN [facility] E HCL PER 100 MG RINGERS J7120 [facility] LACTATE 9 Y Y INFUSION [facility] UP TO 1000 CC INJECTION J2270 [facility] MORPHINE 9 Y Y SULFATE [facility] UP TO 10 MG INJECTION J0690 [facility] 9 Y Y CEFAZOLIN [facility] SODIUM 500 MG SMR PRIM 72152 [facility] SRC 9 Y Y GRAM/GIEM [facility] SA STAIN BCT FUNGI/LEONIDES L CUL BACT 89361 [facility] XCPT 9 Y Y URINE [facility] BLOOD/STO OL AEROBIC ISOL BLOOD 19627 [facility] COUNT 9 Y Y COMPLETE [facility] AUTOMATED ECG 64183 TARAS RENA, ROUTINE 9 MEDICAL MARIXA G ECG SERV W/LEAST FOUNDATIO 12 LDS I&R ONLY ECG 57535 [facility] ROUTINE 9 Y Y ECG [facility] W/LEAST 12 LDS TRCG ONLY W/O I&R COLLECTIO 41720 [facility] N VENOUS 9 Y Y BLOOD [facility] VENIPUNCT URE BASIC 89579 [facility] METABOLIC 9 Y Y PANEL [facility] CALCIUM TOTAL RADEX 83280 [facility] FOOT 9 Y Y COMPLETE [facility] MINIMUM 3 VIEWS CELL 13600 [facility] COUNT 9 Y Y MISC BODY [facility] FLUIDS W/DIFFERE NTIAL COUNT ARTHROCEN 62325 SASKIA SCHAEFFER TESIS 9 LTH II, NESHA ASPIR&/IN ORTHOPAED A J MAJOR IC JT/BURSA SURGEONS W/O US PSC INJ J0702 SASKIA SCHAEFFER BETAMETHA 9 LTH II, NESHA SONE ORTHOPAED A ACETATE & IC SURGEONS PHOSPHATE PSC 3 MG COLLECTIO 09158 [facility] N VENOUS 9 Y Y BLOOD [facility] VENIPUNCT URE CUL BACT 60507 [facility] XCPT 9 Y Y URINE [facility] BLOOD/STO OL AEROBIC ISOL SMR PRIM 72744 [facility] 9 Y Y GRAM/GIEM [facility] SA STAIN BCT FUNGI/LEONIDES L REP/NONRO E1340 ALLIED ALLIED UTINE 9 HOME HOME SRVC DME MEDICAL, MEDICAL, RQR SKL INC. INC. TECH LABR-15 MIN PWR E2365 ALLIED ALLIED WHLCHAIR 9 HOME HOME ACSS U-1 MEDICAL, MEDICAL, SEALED INC. INC. LEAD ACID BATTRY EA SBSQ 91907 [facility] 8 EMERGENCY N, CARE/DAY SERVICES TADARRO 25 MINUTES ASSOCIATE S INITIAL 56734 [facility] INPATIENT 8 EMERGENCY N, CONSULT SERVICES TADARRO NEW/ESTAB PT 110 ASSOCIATE MIN S ANESTH 42976 COMMONKRANTHI CAUSEY 8 [facility] REEMA Harvey ANESTHESI ARTHROSCO A [facility] PIC PROC KNEE JOINT LEVEL III 34165 [place] ANN, SURG 8 MEDICAL TIM E PATHOLOGY SERV FOUNDATIO GROSS&VENUS ROSCOPIC EXAM ANES 41428 [place] HIRO, [facility] 8 ANESTHESI JENNIFER Vieira INTESTINE A GROUP [facility] ENDOSCOPY DISTAL DUODENUM COLONOSCO 42741 [facility], PY FLX DX 8 [place] RICHY G W/COLLJ GASTROENT SPEC WHEN PFRMD CELL 12913 [facility] COUNT 8 Y Y [facility] FLUIDS W/DIFFERE NTIAL COUNT SMR PRIM 15722 [facility] SRC 8 Y Y GRAM/GIEM [facility] SA STAIN BCT FUNGI/LEONIDES L CUL BACT 52123 [facility] 8 Y Y URINE [facility] BLOOD/STO OL AEROBIC ISOL SMALL A7004 PULMO PULMO VOLUME 8 DOSE [...] IPRATROPI UM BROM TO 0.5 MG DUP-SCAN 18763 [facility] LXTR 8 N N ART/ARTL [facility] COMPL BI STUDY ALBUTEROL J7620 PULMO [...] PHARMACY IPRATROPI UM BROM TO 0.5 MG RADIOLOGI 02-14-200 85074 MAKSIM MAKSIM C 8 II, NESHA II, NESHA EXAMINATI A A ON KNEE 1/2 VIEWS RADIOLOGI 52775 MAKSIM MAKSIM C EXAM 8 II, NESHA II, NEHSA KNEE A A COMPLETE 4/MORE VIEWS ALBUTEROL J7620 PULMO PULMO TO 2.5 8 DOSE DOSE MG & PHARMACY PHARMACY IPRATROPI UM BROM TO 0.5 MG PHRM Q0513 PULMO PULMO DISPENSIN 8 DOSE DOSE G FEE PHARMACY PHARMACY INHALATIO N RX; PER 30 DAYS Encounters Encounter Start End Date Code Location Performer Type Date [facility] [place] [address] 3 Y [facility] [place] 3 3 [facility] 3 3 [facility] [place] [address] 3 INPATIENT HOSPITAL EMERGENCY 65046 TARAS SALAZAR DEPT 3 3 MEDICAL JORGE VISIT SERV HIGH FOUNDATIO SEVERITY& THREAT [facility] Emergency NICOLÁS Keene MD (ER) 3 22:37 3 00:59 [facility] [place] 3 3 [facility] OFFICE 38884 ARTHRITIS ALBERTO [facility] 3 3 CENTER T VISIT OF 25 [facility] [place] [address] 3 Y [facility] Emergency NICOLÁS Millard MD (ER) 3 15:20 3 17:49 [facility] [place] 3 3 [facility] EMERGENCY 17570 POPPY SANTA DEPT 3 3 EMERGENCY VISIT SERVICES HIGH SEVERITY& THREAT [facility] [place] 3 3 [facility] 01769 Avtar Candice LAZCANO OUTPATIEN 3 3 FILEMON SHAH T VISIT [facility] 15 MINUTES Emergency NICOLÁS Millard MD (ER) 3 14:54 3 16:00 [facility] EMERGENCY 28363 [place] 3 3 [facility] T VISIT HIGH/URGE NT SEVERITY [facility]OSPITAL [place] - 3 3 [facility] OUTPATIEN [facility] T EMERGENCY 80511 POPPY SANTA DEPT 3 3 EMERGENCY VISIT SERVICES HIGH SEVERITY& THREAT [facility] OFFICE 00671 ARTHRITIS ALBERTO RIT OUTPATIEN 3 3 CENTER T VISIT OF 25 [facility] OFFICE 78847 Avtar LAZCANO OUTPATILENNY 3 3 FILEMON SHAH T VISIT [facility] 15 MINUTES HOSPITAL [place] 3 3 [facility] 94315 ARTHRITIS ALBERTO RIT OUTPATIEN 3 3 CENTER T VISIT OF 10 [facility] [place] - 3 3 [facility]IEN [facility] [place] 3 3 [facility] OUTPATIEN [facility] OFFICE 14046 ARTHRITIS ALBERTO RIT OUTPATIEN 3 3 CENTER T VISIT OF 25 [facility] [place] - 3 3 [facility]EN [facility] - 3 3 [facility] T OFFICE 80798 TARAS THOMPSON OUTPATIEN 3 3 MEDICAL JAM T VISIT SERV 40 [facility] [place] 3 3 [facility] EMERGENCY 15683 TARAS LANTIGUA DEPT 3 3 MEDICAL ROUGH PLANER TENDER VISIT SERV HIGH FOUNDATIO SEVERITY& THREAT [facility] - 3 3 Y INPATIENT HOSPITAL OFFICE 28201 TARAS KODY OUTPATIEN 3 3 MEDICAL YATACO T VISIT SERV ANG 25 [facility] UNIVERSIT - 2 3 Y INPATIENT HOSPITAL EMERGENCY 63130 POPPY KEENE DEPT 2 2 EMERGENCY VENUS VISIT SERVICES HIGH SEVERITY& THREAT [facility] EMERGENCY 64039 POPPY SANTA DEPT 2 2 EMERGENCY VISIT SERVICES HIGH SEVERITY& THREAT [facility] [place] [place] [address] 2 N OUTPATIEN [facility] HOSPITA OFFICE 37256 CULBERTSO CULBERTSO OUTPATIEN 2 2 N KALYAN N KALYAN T VISIT 15 MINUTES OFFICE 73306 CULBERTSO CULBERTSO OUTPATIEN 1 1 N KALYAN N KALYAN T VISIT 15 MINUTES HOSPITAL UNIVERSIT - 1 1 Y [facility] UNIVERSIT - 1 1 Y [facility] UNIVERSIT - 0 0 Y [facility] T OFF[facility] 89912 CULBERTSO CULBERTSO OUTPATIEN 0 0 N KALYAN N KALYAN T VISIT 15 MINUTES OFFICE 91665 TARAS JUAN OUTPATIEN 0 0 MEDICAL [place] T VISIT SERV 15 [facility] 93668 [place] 0 0 [facility] DEPARTMEN INC T VISIT MODERATE SEVERITY EMERGENCY 97566 POPPY MORRISSEY DEPT 0 0 EMERGENCY III [facility] VISIT SERVICES HIGH SEVERITY& THREAT [facility] [place] - [facility] 0 [facility] OUTPATI[facility] INC T OFFICE 92548 TARAS MARTINEZ OUTPATIEN 0 0 MEDICAL [place] T VISIT SERV 15 [facility] [place] [facility] 0 [facility] OUTPATIEN INC T EMERGENCY 68844 [place] 0 0 [facility] DEPARTMEN INC T VISIT LOW/MODER SEVERITY OFFICE 57640 CULBERTSO CULBERTSO OUTPATIEN 9 9 GEREMIAS Bautista ROBERT T VISIT 15 MINUTES [facility] - 9 9 N [facility] OFFICE 42097 CULBERTSO CULBERTSO OUTPATIEN 9 9 GEREMIAS Bautista ROBERT T VISIT 15 MINUTES OFFICE 80387 CULBERTSO CULBERTSO OUTPATIEN 9 9 NGEREMIAS ROBERT T VISIT 25 MINUTES OFFICE 11967 CULBERTSO CULBERTSO OUTPATIEN 9 9 GEREMIAS Bautista ROBERT T VISIT 15 MINUTES HOSPITAL [facility] - 9 9 Y [facility] OFFICE [address]15 [place] KAM MARTINEZ 9 9 MEDICAL [place] J ION SERV NEW/ESTAB FOUNDATIO PATIENT 40 MIN HOSPITAL UNIVERSIT [facility] 9 9 Y [facility] UNIVERSIT - 9 9 Y [facility] OFFICE 59757 [place] MAKSIM [facility] 9 9 [facility] NESHA CLEMONS T VISIT ORTHOPAED A 15 IC MINUTES [facility] UN[facility] - 8 8 Y [facility] OFFICE 88402 CULBERTSO CULBERTSO OUTPATIEN 8 8 NGEREMIAS ROBERT T VISIT 15 MINUTES [facility] - 8 8 N [facility] OFFICE 93135 MAKSIM MAKSIM [facility] 8 8 II, NESHA JEFFRIES II T VISIT A A 15 MINUTES
--- OUTSIDE RECORDS SUMMARY | 2016-10-07 14:23 | External Medical Summary Rpt ---
Author Author , Organization [employer] Address Unknown Phone Unavailable Care Team Providers Care President Financial Institution Name Role Phone A Candice COLBERT MD PSC, A Unavailable Unavailable Candice COLBERT MD PSC MARTIN MCKINNEY Unavailable Unavailable REEMA ELDER, Unavailable Unavailable REEMA BOOTH [facility] Unavailable Unavailable [facility] Un[facility] Unavailable [place] [place] [facility] AND, [facility] AND Unavailable Unavailable BENSADOUN NUVIA, Unavailable Unavailable BENSADOUN NUVIA BESSON KAMALA, BESSON Unavailable Unavailable KAMALA SOHEILA DEENA, Unavailable Unavailable SOHEILA DEENA [facility] Unavailable Unavailable SERVICE, [facility] Unavailable Unavailable SERVICE, [facility] CAMILLE KET, CAMILLE KET Unavailable Unavailable GRZEGORZ FACULTY SUPPORT COORDINATOR, GRZEGORZ Unavailable Unavailable FACULTY SUPPORT COORDINATOR TITI JAG, TITI Unavailable Unavailable FAUSTINO MCDOWELL, [...] NAN JESSICA VENUS, JESSICA Unavailable Unavailable [facility] Unavailable Unavailable HOSPITA, [facility] Unavailable [facility]available HOSPITAL, [facility], [facility] Unavailable [facility]available [facility] Unavailable Unavailable INC, [facility] Unavailable Unavailable HOSPITAL P, [facility] DUBOIS KAMALA, DUBOIS KAMALA Unavailable [...] HOLDINGS, [facility], Unavailable Unavailable [facility] JUAN KAMALA, Unavailable Unavailable JUAN KAMALA TONO MARTINEZ, Unavailable Unavailable TONO MARTINEZ HAYWOOD MARION, HAYWOOD Unavailable Unavailable MARION JESICA JAM, JESICA JAM Unavailable Unavailable TIAGO JR DWI, TIAGO Unavailable Unavailable JR DWI LUKINS TIERRA, LUKINS Unavailable Unavailable TIERRA [facility] Unavailable Unavailable SERVICES, [facility] MAKSIM II, NESHA A, Unavailable Unavailable MAKSIM II, NESHA A THOMPSON JAM, Unavailable Unavailable THOMPSON RAMA [facility], Unavailable Unavailable [facility] Unavailable Unavailable OF THE B, [facility], Unavailable Unavailable [facility] ANUPAM SANCHES, Unavailable Unavailable MYRON, TADARRO IRCHY HOLLIS G, Unavailable Unavailable RICHY HOLLIS MOE CHET, MOE CHET Unavailable Unavailable SEETHARMRAJU HAZEL, Unavailable Unavailable SEETHARMRAJU HAZEL JENNIFER BOSCH, Unavailable Unavailable JENNIFER BOSCH [facility] Unavailable Unavailable [facility], [facility] Unavailable Unavailable [facility], [facility] TIM JUAREZ, Unavailable Unavailable TIM JUAREZ, Unavailable Unavailable SHAJI POWELL Unavailable Unavailable [facility], Unavailable Unavailable [facility] Unavailable Unavailable [facility] GERALD MINA, Unavailable Unavailable ALEJO [...] OBSTRUCTION MEDICAL NEC EQUIPME 515 POSTINFLAMM 03-19-2013 [place] [facility] PULMONARY [facility] FIBROSIS 7245 UNSPECIFIED 03-19-2013 [facility] 33625 OTHER 03-19-2013 [place] [facility] [address] OBSTRUCTIVE 03-10-2013 [facility] APNEA MEDICAL EQUIPME 71914 OTHER 03-07-2013 [place] DISEASES OF [facility] LUNG NOT INC ELSEWHERE CLASSIFIED 7242 LUMBAGO 03-06-2013 [facility] INC V571 OTHER 03-06-2013 [facility] 54897 OTHER 03-01-2013 [place] [facility] CONDITIONS [facility] OF BRAIN FOUNDATIO 7140 RHEUMATOID 03-01-2013 [place] [facility] ARTHRITIS [facility] 7840 HEADACHE 03-01-2013 [place] [facility] 14221 DIARRHEA 03-01-2013 [place] [facility] 7930 NONSPECIFIC 03-01-2013 [place] [facility] ABN FNDNG SERV RAD & OTH FOUNDATIO EXM SKULL & HEAD E8889 UNSPECIFIED 03-01-2013 [place] [facility] FALL [facility] 51660 OTHER 02-28-2013 [place] [facility] CHRONIC [facility] PAIN F[facility] 4019 UNSPECIFIED 02-28-2013 [place] [facility] ESSENTIAL SERV HYPERTENSIO FOUNDATIO N 66057 FEVER 02-28-2013 [place] [facility] UNSPECIFIED SERV [facility] 61186 OTHER 02-28-2013 [place] [facility] NONSPECIFIC SERV ABNORMAL [facility] FINDING OF LUNG FIELD 412 OLD 02-27-2013 [place] MYOCARDIAL [facility] INFARCTION 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 4829 UNSPECIFIED 02-27-2013 [facility] BACTERIAL AMBULANCE PNEUMONIA SERVICE 5184 UNSPECIFIED 02-27-2013 [place] [facility] [place] [facility] EDEMA OF FOUNDATIO LUNG 5849 ACUTE 02-27-2013 [place] KIDNEY [facility] FAILURE UNSPECIFIED 51233 RHEUMATOID 02-27-2013 [facility] V4361 SHOULDER 02-27-2013 [place] [facility] REPLACEMENT F[facility]AT[facility] BY OTHER MEANS V462 DEPENDENCE 02-27-2013 [facility] L OXYGEN 94990 OBSTRUCTIVE 02-26-2013 [facility] P WITH EXACERBATIO N V5869 LONG-TERM 02-20-2013 [facility] USE OF [place] OTHER MEDICATIONS V6751 F/U EXAM 02-20-2013 [facility] FOLLOW CMPL [place] [facility] W/HIGH-RISK MED NEC 49330 COR 02-12-2013 [facility] UNSPEC TYPE VESSEL INAJA/RAUL T 4940 BRONCHIECTA 01-31-2013 [place] [facility] S[facility] WITHOUT SERV ACUTE FOUNDATIO EXACERBATIO N 52307 IDIOPATHIC 01-31-2013 [facility] 7856 ENLARGEMENT 01-31-2013 [place] [facility] LYMPH SERV NODES F[facility]ATIO 81514 SHORTNESS 01-31-2013 [place] [facility] BREATH SERV [facility] 58442 OTHER 01-31-2013 [facility] RESPIRATORY AMBULANCE SERVICE COMPLICATIO NS 0529 VARICELLA 01-06-2013 A Candice PINZON MD PSC MENTION OF COMPLICATIO N 7862 COUGH 01-06-2013 A Candice COLBERT MD PSC 4660 ACUTE 11-06-2012 A Candice COLBERT BRONCHITIS PSC V5812 ENCOUNTER 09-25-2012 [facility] ANTINEOPLAS [place] TIC IMMUNOTHERA PY 2859 UNSPECIFIED 08-31-2012 [facility] 4841 PNEUMONIA 08-31-2012 [place] [facility] IN [facility] CYTOMEGALIC [facility] INCLUSION DISEASE 5168 OTH SPEC 08-31-2012 [place] [facility] ALVEOL&DEONNA SERV ETOALVEOL FOUNDATIO PNEUMONOPAT HIES 34185 NAUSEA WITH 08-02-2012 [place] [facility] VOMITING SERV [facility] V1209 PERSONAL HX 08-02-2012 [place] [facility] INFECTIOUS& FOUNDATIO PARASITIC DISEASE 2724 OTHER AND 07-31-2012 [facility] ALEKSANDAR 5589 OTH&UNSPEC 07-31-2012 [place] [facility] NONINFECTIO SERV US F[facility]IO GASTROENTER ITIS&COLITI S 34785 VOMITING 07-31-2012 [facility] INTER 94522 ABDOMINAL 07-31-2012 [place] [facility] PA[place], SERV EPIGASTRIC FOUNDAT[facility] 93777 SYSTEMIC 07-31-2012 [facility] Y RESPONSE SYNDROME UNSPEC V1269 PERSONAL 07-31-2012 [place] [facility] H[facility] OTHER FOUNDATIO DISEASES RESPIRATORY SYS 514 PULMONARY 07-03-2012 [facility] [place] CONGESTION RADIOLOGY AND HYPOSTASIS 7295 PAIN IN 07-03-2012 [facility]ER[facility] ESPERAN[facility] SOFT TISSUES OF LIMB 7823 EDEMA 07-03-2012 [facility] ESPERANZA 5119 UNSPECIFIED 07-01-2012 [facility] [place] PLEURAL RADIOLOGY EFFUSION 01329 OTHER 06-20-2012 [place] [facility] DISEASES OF SERV NASAL FOUNDATIO CAVITY AND SINUSES 5121 IATROGENIC 06-16-2012 [place] [facility] PNEUMOTHROA SERV X [facility] 35367 ACUTE AND 06-16-2012 [place] [facility] CHRON[facility] RESPIRATORY F[facility]ATIO FAILURE 69823 SEPTIC 06-16-2012 [place] [facility] SHOCK [facility] 0785 CYTOMEGALOV 06-15-2012 [facility] DISEASE THE B 16918 CHEST PAIN 06-15-2012 [facility]PECIF[facility] CTR OF THE B 7850 UNSPECIFIED 06-11-2012 [place] [facility] TACHYCARDIA F[facility]AT[facility] 4279 UNSPECIFIED 05-17-2012 [place] [facility] CARDIAC SERV DYSRHYTHMIA FOUNDATIO 84816 ACUTE 05-17-2012 [place] [facility] [place] SERV FAILURE FOUNDATIO 96301 OTHER 04-24-2012 [facility] BR[facility] SEPTICEMIA 1124 CANDIDIASIS 04-24-2012 [facility] 5070 PNEUMONITIS 04-24-2012 [place] [facility] INHALATION OF FOOD OR VOMITUS 5100 EMPYEMA 04-24-2012 [facility] FISTULA 5183 PULMONARY 04-22-2012 [place] [facility] 48294 REFLUX 08-03-2011 [facility] ESOPHAGITIS KALYAN 36306 OTHER 08-03-2011 [facility] SYMPTOMS AKLYAN INVOLVING DIGESTIVE SYSTEM OTHER 490 BRONCHITIS 07-13-2010 [facility] NOT [place] SPECIFIED ACUTE OR CHRONIC 82880 ASTHMA, 07-13-2010 [facility] UNSPECIFIED K[place]YAN , UNSPECIFIED STATUS 81660 PAIN IN 07-08-2010 [facility] ANKLE AND FOOT 94332 DISORDER OF 07-08-2010 [place] [facility] BONE AND SERV CARTILAGE FOUNDATIO UNSPECIFIED V454 ARTHRODESIS 07-08-2010 [place] [facility] STAT[place] [facility] V5489 OTHER 07-08-2010 [facility] AFTERCARE V5409 OTH 06-17-2010 [place] [facility] AFTER[facility] INVOLVING FOUNDATIO INTERNAL FIXATION DEVICE V6700 FOLLOW-UP 06-01-2010 [place] [facility] EXAMINATION SERV FOLLOWING FOUNDATIO UNSPEC SURGERY 64456 PRIMARY 05-12-2010 [place] [facility] LOCALIZED SERV OSTEOARTHRO FOUNDATIO SIS ANKLE AND FOOT 37563 PAIN IN 05-12-2010 [place] [facility], SERV LOWER LEG FOUNDATIO V0481 NEED 05-12-2010 [facility] C VACCINATION &INOCULATIO N FLU V5849 OTHER 05-12-2010 [place] [facility] SPECIFIED SERV AFTERCARE FOUNDATIO FOLLOWING SURGERY 4659 ACUTE URIS 04-17-2010 [facility] OF [place] UNSPECIFIED SITE 95350 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 [place] [facility] RHEUMATISM SERV ANKLE AND FOUNDATIO FOOT 38962 PAIN IN 04-02-2010 [facility], AMERIC UPPER ARM HOLDING 99363 OBST 03-12-2010 [facility] P W/ACUTE BRONCHITIS 91366 PAINFUL 03-12-2010 [facility] 54477 UNSPECIFIED 05-20-2009 [facility] BANERJEE ARTHROPATHY SITE UNSPECIFIED 4011 ESSENTIAL 05-09-2009 [facility] N, BENIGN PSC 49413 OTHER CHEST 05-09-2009 [facility] PAIN GEREMIAS V7651 SPECIAL 05-09-2009 [facility] BANERJEE FOR MALIGNANT NEOPLASMS COLON 7808 GENERALIZED 05-05-2009 [facility] BANERJEE HYPERHIDROS IS 5960 BLADDER 03-18-2009 [facility] [place] INC OBSTRUCTION 2720 PURE 03-17-2009 [facility] HYPERCHOLES GEREMIAS TEROLEMIA 96406 ESOPHAGEAL 03-17-2009 [facility] REFLUX GEREMIAS 22366 PRIMARY 03-17-2009 [facility] LOCALIZED GEREMIAS OSTEOARTHRO SIS OTH SPEC SITES 97835 OTH MECH 11-26-2008 [facility] INT ORTHOPEDIC DEVC IMPL&GFT 90222 OT COMPS 11-26-2008 [place] [facility] D[place] OTH SERV INTRL FOUNDATIO ORTHOPED DEVICE IMPL&GFT 7271 BUNION 11-11-2008 [facility] 60932 NONSPECIFIC 11-11-2008 [facility] ELECTROCARD IOGRAM V4589 OTHER 11-11-2008 [facility] L STATUS OTHER 54892 EFFUSION OF 09-19-2008 [facility] ORTHOPAEDIC SURGEONS PSC 03371 VILLONODULA 09-19-2008 [facility] SYNOVITIS, ORTHOPAEDIC LOWER LEG SURGEONS PSC 5185 PULMONARY 05-16-2008 [facility] EMERGENCY CY FOLLOW SERVICES [facility] [employer] [facility] SURGERY 23826 UNSPECIFIED 05-15-2008 [place] [facility] [place] [address] EXTRINSIC 11-02-2007 [facility] ASTHMA, PHARMACY UNSPECIFIED 84394 OSTEOARTHRO 07-13-2007 MAKSIM II, SIS UNSPEC NESHA A WHETHER GEN/LOC ANK&FOOT 34164 TENOSYNOVIT 07-13-2007 MAKSIM II, IS OF FOOT [...] SerPl-mCnc (09-22-2016 14:15) NT-proB [phone] JUDGE 017 pg/mL ed SerPl-m 14:15 Cnc Lactate [...] AT EQUIPME EQUIPME PRSC FLW RATE PULMONARY 70920 [facility] STRESS 3 Y Y TESTING [facility] SIMPLE SPMTRY 38259 TARAS BENSADOUN W/VC 3 MEDICAL NUVIA EXPIRATOR [...] [facility] R EQUIPME EQUIPME THERAPEUT 16559 [place] P[place] 1/> 3 [facility] AREAS INC INC EACH 15 MIN EXERCISES E-STIM G0283 [place] [facility] 1/> AREAS 3 [facility]OSP OTH THAN INC INC WND CARE PART TX PLAN E-STIM G0283 [place] [facility] 1/> AREAS 3 [facility]OS[facility] OTH THAN INC INC WND CARE PART TX PLAN THERAPEUT 14077 [place] [facility] [place] PX 1/> 3 [facility]OS[facility] AREAS INC INC EACH 15 MIN EXERCISES APPLICATI 30038 [place] [facility] ON 3 [facility] MODALITY INC INC 1/> AREAS HOT/COLD PACKS CONTINUOU E0601 [facility] VIERA S 3 HOME HOME POSITIVE MEDICAL MEDICAL AIRWAY EQUIPME EQUIPME PRESSURE DEVICE THERAPEUT 21950 [place] 1/> 3 [facility]OS[facility] AREAS INC INC EACH 15 MIN EXERCISES E-STIM G0283 [place] [facility] 1/> AREAS 3 [facility]OS[facility] OTH THAN INC INC WND CARE PART TX PLAN CUL BACT 18533 [place] [facility] XCPT 3 [facility] URINE INC INC BLOOD/STO OL AEROBIC ISOL SMR PRIM 62932 [place] [facility] SRC 3 [facility] GRAM/GIEM INC INC SA STAIN BCT FUNGI/LEONIDES L SPUTUM 10515 [place] [facility] OBTAINING 3 [facility] SPEC INC INC AEROSOL INDUCED TX SPX THERAPEUT 04160 [place] 1/> 3 [facility]OS[facility] AREAS INC INC EACH 15 MIN EXERCISES E-STIM G0283 [place] [facility] 1/> AREAS 3 [facility] OTH THAN [place] [address] TARAS MCCOY HEAD/BRAI 3 MEDICAL N W/O SERV CONTRAST FOUNDATIO MATERIAL RADIOLOGI 21356 [place] [facility] KAMAL[place] C EXAM 3 MEDICAL CHEST 2 SERV VIEWS FOUNDATIO FRONTAL&L ATERAL SBSQ 74621 [facility] 3 MEDICAL PRE CARE/DAY SERV 25 FOUNDATIO MINUTES SBSQ 50284 [facility] 3 MEDICAL PRE CARE/DAY SERV 25 FOUNDATIO MINUTES RADIOLOGI 84083 [place] [facility] [facility] C EXAM 3 MEDICAL CHEST 2 SERV VIEWS FOUNDATIO FRONTAL&L ATERAL IAADI 23200 [place] [facility] INFLUENZA 3 [facility] B VIRUS INC INC IAADI 81549 [place] [facility] INFFLUENZ 3 [facility] A A VIRUS INC INC SUSCEPTIB 64042 [place] LTY STDY 3 [facility] ANTIMICRB INC INC IAL MICRO/AGA R DILUTJ SMR PRIM 25596 [place] [facility] SRC 3 [facility] GRAM/GIEM INC INC SA STAIN BCT FUNGI/LEONIDES L CUL BACT 95164 [place] [facility] AEROBIC 3 [facility] ADDL INC INC METHS DEFINITIV E EA ISOL CUL BACT 25703 [place] [facility] XCPT 3 [facility] URINE INC INC BLOOD/[place] [address] [place] CLOEMAN INFUSION 3 [facility] THERAPY INC INC PROPHYLAX IS/DX EA HOUR AMB A0427 [facility] 3 AMBULANCE AMBULANCE ALS SERVICE SERVICE EMERGENCY TRANSPORT LEVEL 1 INITIAL 04780 [facility] 3 MEDICAL PRE CARE/DAY SERV 70 FOUNDATIO MINUTES RADIOLOGI 80539 [place] AYOOB AND C 3 MEDICAL EXAMINATI SERV [place] [address] [place] [facility] INFUSION 3 [facility] THER INC INC PROPH ADDL SEQUENT[place] L TO 1 [place] [address] [place] [facility] INFUSION 3 [facility] THERAPY/P INC INC ROPHYLAXI S /DX 1ST TO 1 HR GROUND A[address] [facility] 3 AMBULANCE AMBULANCE PER SERVICE SERVICE STATUTE MILE BLOOD 25412 [place] [facility] GASES ANY 3 [facility] INC INC COMBINATI ON PH PCO2 PO2 CO2 HCO3 RADIOLOGI 36418 [place] [facility] C 3 [facility] EXAMINATI INC INC ON CHEST [place] FRONTAL THERAPEUT 08592 [place] [facility] [place] PX 1/> 3 [facility]OS[facility] AREAS INC INC EACH 15 MIN EXERCISES PHYSICAL 62495 [place] [facility] THERAPY 3 [facility] EVALUATIO INC INC N CRITICAL 05220 [place] [facility] CARE 3 [facility] ILL/INJUR INC INC ED PATIENT INIT 30-74 MIN BASIC 29852 [place] [facility] METABOLIC 3 [facility] PANEL INC INC CALCIUM TOTAL CREATINE 99220 [place] [facility] KINASE 3 [facility] TOTAL INC INC CULTURE 59452 [place] [facility] BACTERIAL 3 [facility] BLOOD INC INC AEROBIC W/[place] [address] [place] [facility] TROPONIN 3 [facility] QUANTITAT INC INC COURTNEY BLOOD 36675 [place] [facility] COUNT 3 [facility] COMPLETE INC INC AUTO&AUTO DIFRNTL WBC E-STIM G0283 [place] [facility] 1/> AREAS 3 [facility] OTH THAN INC INC WND CARE PART TX PLAN ECG 26710 [place] BECERRIL ROUTINE 3 [facility] W/LEAST P 12 LDS I&R ONLY ECG 63567 [place] [facility] ROUTINE 3 [facility] ECG INC INC W/LEAST 12 LDS TRCG ONLY W/O I&R CREATINE 79430 [place] [facility] KINASE MB 3 [facility] FRACTION INC INC ONLY COMPREHEN 96049 [facility] SIVE 3 [facility] METABOLIC HOLDINGS HOLDINGS PANEL C-REACTIV 07939 [facility] E PROTEIN 3 [place] [facility]INGS BLOOD 69924 [facility] COUNT 3 [place] [facility] COM[facility]TE [facility] HOLDINGS AUTOMATED COLLECTIO 04168 [facility] N VENOUS 3 [...] [facility] [place] [address] TAR[place] OBRIEN KET DIFFUSING 3 MEDICAL CAPACITY SERV FOUNDATIO GASES 72253 [facility] BLOOD PH 3 Y [facility] ANSHU XCPT PULSE OXIMITRY PULMONARY 47765 [place] STRESS 3 MEDICAL TESTING SERV SIMPLE FOUNDATIO PLETHYSMO 50440 [place] GRAPHY 3 MEDICAL MEDICAL LUNG SERV SERV VOLUMES FOUNDATIO FOUNDATIO W/WO AIRWAY RESIST ARTERIAL 21208 [facility] PUNCTURE 3 Y Y WITHDRAWA [facility] L BLOOD DX CT THORAX 40467 [facility] W/O 3 Y Y CONTRAST [facility] MATERIAL SPMTRY 43817 [place] W/VC 3 MEDICAL EXPIRATOR SERV Y RACHEL FOUNDATIO W/WO MXML VOL VNTJ CONTINUOU E0601 [facility] VIERA S 3 HOME HOME POSITIVE MEDICAL MEDICAL AIRWAY EQUIPME EQUIPME PRESSURE [facility]ICE [facility] 04180 [place] SEETHARMR DISCHARGE 3 MEDICAL AJU HAZEL DAY SERV MANAGEMEN FOUNDATIO T 30 MIN/< THER 21890 [place] [facility] PROPH/DX 3 [facility] NJX IV INC INC PUSH SINGLE/1S T SBST/DRUG RADIOLOGI 45802 [place] [facility] C 3 [facility] EXAMINATI INC [place] [address] TARAS JESICA ONTIVEROS ANGIOGRAP 3 MEDICAL HY CHEST SERV W/CONTRAS FOUNDATIO T/NONCONT RAST GROUND A0425 [facility] MILEAGE 3 AMBULANCE AMBULANCE PER SERVICE SERVICE STATUTE MILE AMBULANCE A0429 [facility] 3 AMBULANCE AMBULANCE BLS SERVICE SERVICE EMERGENCY TRANSPORT PRESSURIZ 05558 [place] [facility] ED/NONPRE 3 [facility] SSURIZED INC INC INHALATIO N TREATMENT ECG 30651 [facility] [place] ROUTINE 3 EMERGENCY ECG SERVICES W/LEAST 12 LDS I&R ONLY RADIOLOGI 04887 [place] [facility] C EXAM 3 [facility] CHEST 2 INC INC VIEWS FRONTAL&L ATERAL ECG 44122 [place] [facility] ROUTINE 3 [facility] ECG INC INC W/LEAST 12 LDS TRCG ONLY W/O I&R BLOOD 23651 [place] [facility] COUNT 3 [facility] COMPLETE INC INC AUTO&AUTO DIFRNTL WBC CUL BACT 60253 [place] AEROBIC 3 [facility] ADDL INC INC METHS DEFINITIV E EA ISOL CULTURE 22459 [place] [facility] BACTERIAL 3 [facility] BLOOD INC INC AEROBIC W/ID ISOLATES CUL BACT 59883 [place] XCPT 3 [facility] URINE INC INC BLOOD/STO OL AEROBIC ISOL SMR PRIM 15163 [place] SRC 3 [facility] GRAM/GIEM INC INC SA STAIN BCT FUNGI/LEONIDES L SUSCEPTIB 00993 [place] [facility] LTY STDY 3 [facility] ANTIMICRB INC INC IAL MICRO/AGA R DILUTJ COMPREHEN 43739 [place] [facility] SIVE 3 [facility] METABOLIC INC INC PANEL PHRM Q0513 YOUR YOUR DISPENSIN 3 PHARMACY PHARMACY G FEE [employer] INHALATIO N RX; PER 30 DAYS ADMN SET A7003 YOUR YOUR SM VOL 3 PHARMACY PHARMACY NONFILTR [employer] PNEUMAT NEBULIZR DISPBL ALBUTEROL J7620 YOUR [...] [facility] R EQUIPME EQUIPME RADIOLOGI 01329 [place] C EXAM 3 [facility] CHEST 2 INC INC VIEWS FRONTAL&L ATERAL CONTINUOU E0601 AYLIN VIERA S 3 HOME HOME POSITIVE MEDICAL MEDICAL AIRWAY EQUIPME EQUIPME PRESSURE DEVICE CREATINE 09402 [place] KINASE MB 3 [facility] FRACTION INC INC ONLY COMPREHEN 65559 [place] [facility] SIVE 3 [facility] METABOLIC INC INC PANEL ECG 65708 [place] ORDOÑEZ JR ROUTINE [address] [facility] W/LEAST P 12 LDS I&R ONLY RHYTHM 09060 [place] [facility] ECG 1-3 3 [facility] LEADS INC INC TRACING ONLY W/O I&R ECG 66986 [place] [facility] ROUTINE 3 [facility] ECG INC INC W/LEAST 12 LDS TRCG ONLY W/O I&[place] [address] [place] HEAD/BRAI 3 [facility] N W/O INC INC CONTRAST MATERIAL BLOOD 88202 [place] COUNT 3 [facility] COMPLETE INC INC AUTO&[place] [address] [place] TROPONIN 3 [facility] QUANTITAT INC INC COURTNEY CREATINE 20766 [place] KINASE 3 [facility] TOTAL INC INC 3D 05384 [place] RENDERING 3 [facility] W/INTERP INC INC & POSTPROCE SS [...] PER SESS TO 2 PER DAY BLOOD 04648 [facility] COUNT 3 [facility] AUTOMATED COLLECTIO 81431 [facility] N VENOUS 3 [facility] VENIPUNCT URE C-REACTIV 62943 [facility] E PROTEIN 3 [facility] COMPREHEN 24047 [facility] SIVE 3 [facility] [...] PER SESS TO 2 PER DAY POLYSOM 81628 [place] [facility] 6/>YRS 3 [facility] MEM [...] HOME R MEDICAL MEDICAL EQUIPME EQUIPME GAS 88865 [place] DILUT/WAS 3 [facility] MEM [...] AT EQUIPME EQUIPME PRSC FLW RATE BRNCDILAT 56211 [facility] [facility] RSPSE 3 [facility] SPMTRY INC INC PRE&POST- BRNCDILAT ADMN RADIOLOGI 42014 [place] ISA SARAH C EXAM 3 MEDICAL CHEST 2 SERV VIEWS FOUNDATIO FRONTAL&L ATERAL COLLECTIO 15749 [facility] N VENOUS 3 Y Y BLOOD [facility] VENIPUNCT URE RHEUMATOI 51862 [facility] FACTOR 3 Y [facility] PREALBUMI 75424 [facility] N 3 Y Y [facility] BLOOD 87306 [facility] COUNT 3 Y [facility] AUTO&AUTO DIFRNTL WBC ANTINUCLE 47200 [facility] AR [facility] Y [facility] [place] FLUORESCE 87598 [facility] NT 3 Y Y NONNFCT [facility] AGT ANTB SCREEN EA ANTIBODY CYANOCOBA 66282 [facility] CLARISSE 3 Y Y VITAMIN [facility] B-12 IRON 78962 [facility] BINDING 3 Y [facility] COMPREHEN 27657 [facility] SIVE 3 Y Y METABOLIC [facility] [place] [address] [facility] FOLIC 3 Y Y ACID RBC [facility] STANDARD K0001 AYLIN VIERA WHEELCHAI 3 HOME [...] AT EQUIPME EQUIPME PRSC FLW RATE POLYSOM 76869 [place] 6/>YRS 3 [facility] SLEEP INC INC W/CPAP 4/> ADDL [facility] [address] [facility] 3 MEDICAL JAG DAY SERV MANAGEMEN FOUNDATIO T 30 MIN/< SBSQ 58027 [facility] 3 MEDICAL JAG CARE/DAY SERV 25 FOUNDATIO MINUTES RADEX ABD 80708 [place] DISANTIS COMPL 3 MEDICAL SIDDHARTHA AQT ABD SERV W/S/E/D FOUNDATIO VIEWS 1 VIEW CH RADEX ABD 67409 [place]ES[place] JAM COMPL 3 MEDICAL AQT ABD SERV W/S/E/D [place] V[place]WS 1 [place] [address] [place] SOHEILA ABDOMINAL 3 MEDICAL DEENA REAL SERV TIME FOUNDATIO W/IMAGE LIMITED INITIAL 45134 [facility] 3 Y OF [place] CARE/DAY [place] 70 INTER MINUTES FULL FACE A7030 AYLIN [...] T WALKER MEDICAL MEDICAL EQUIPME EQUIPME DUP-SCAN 86002 JERRI JERRI XTR VEINS 3 ESPERANZA ESPERANZA COMPLETE BILATERAL STUDY RADIOLOGI 43716 [facility] [place] KOSTELIC C EXAM 3 RADIOLOGY MONTSERRAT CHEST 2 VIEWS FRONTAL&L ATERAL RADIOLOGI 28128 [facility] [place] NOEL C EXAM 3 RADIOLOGY GODFREY CHEST 2 VIEWS FRONTAL&L ATERAL MRI BRAIN 99817 [place] LUKINS BRAIN 3 MEDICAL TIERRA STEM W/O SERV CONTRAST FOUNDATIO MATERIAL SBSQ 17504 [facility] 3 E CARE CARE/DAY CTR OF 15 THE B MINUTES BRCHRISTIANACARE 08986 [place] HARLEY INCL 3 MEDICAL OSCAR FLUOR SERV GDNCE DX FOUNDATIO W/CELL WASHG SPX SBSQ 07257 [facility] 3 E CARE CARE/DAY CTR OF 25 THE B MINUTES CLOSED 3324 [facility] BIOPSY OF 3 Y Y [facility] VENOUS 3893 [facility] CATHETERI 3 Y Y [facility] NOT ELSE[facility] CLASSIFIE D ECG 68361 [place] ROQUE CHI ROUTINE 3 MEDICAL ECG SERV W/LEAST FOUNDATIO 12 LDS I&R ONLY ECG 38515 TARAS HU ROUTINE 3 MEDICAL NAN ECG SERV W/LEAST FOUNDATIO 12 LDS I&R ONLY CONTINUOU E0601 AYLIN VIERA S 2 HOME HOME POSITIVE MEDICAL MEDICAL AIRWAY EQUIPME EQUIPME PRESSURE DEVICE THORACOSC 3320 [facility] LUNG 2 Y Y UAB MEDICAL WEST STANDARD K0001 AYLIN YOUNGCHAI 2 HOME HOME R MEDICAL MEDICAL EQUIPME EQUIPME ECG 54085 TARAS NEVAREZ CHI ROUTINE 2 MEDICAL ECG SERV W/LEAST FOUNDATIO 12 LDS I&R ONLY ECG 03121 TARAS ROSA CHET ROUTINE 2 MEDICAL ECG SERV W/LEAST FOUNDATIO 12 LDS I&R ONLY ECG 24117 TARAS NEVAREZ CHI ROUTINE 2 MEDICAL ECG SERV W/LEAST FOUNDATIO 12 LDS I&R ONLY ECG 61445 TARAS HU ROUTINE 2 MEDICAL NAN ECG SERV W/LEAST FOUNDATIO 12 LDS I&R ONLY INSERTION 9604 [facility] OF 2 Y Y [facility] EAL TUBE CONT 9671 [facility] 2 Y Y [facility] < 96 CONSECUTI VE HOURS RADIOLOGI 41311 [facility] 2 MEDICAL TIERRA EXAMINATI IMAGING ON CHEST ASS SINGLE VIEW FRONTAL RADIOLOGI 88971 [facility] 2 MEDICAL TIERRA EXAMINATI IMAGING ON [...] LLC [facility] RX; INITIAL 30-DAY SUPPLY RADIOLOGI 10703 [facility] EXAM 2 MEDICAL TIERRA CHEST 2 IMAGING VIEWS ASS FRONTAL&L ATERAL ECG 99522 POPPY KEENE ROUTINE 2 EMERGENCY VENUS ECG SERVICES W/LEAST 12 LDS I&R ONLY SMR PRIM 58187 [facility] CPLX 2 N N SPEC [facility] [place] STAIN HOSPITA HOSPITA OVA&CHAD ITS OVA&CHAD 07761 [facility] ITES 2 N N DIRECT [facility] HOSPITA CONCENTRA TION & ID SMR PRIM 95615 [facility] SRC 2 N N GRAM/GIEM [facility] [place] SA STAIN HOSPITA HOSPITA BCT FUNGI/LEONIDES L BLOOD 32895 [facility] OCCULT 2 N N PEROXIDAS [facility] [place] E ACTV HOSPITA HOSPITA QUAL FECES 1-3 SPEC BLOOD 80384 CULBERTSO CULBERTSO OCCULT 2 N KALYAN N KALYAN PEROXIDAS E ACTV QUAL FECES 1 DETER BLOOD 41678 LAB [facility]I LAB HEIDI COUNT 2 AMERIC AMERIC COMPLETE HOLDING HOLDING AUTOMATED C-REACTIV 06736 LAB [facility] LAB HEIDI E PROTEIN 2 AMERIC AMERIC HOLDING HOLDING COLLECTIO 35409 LAB [facility] LAB HEIDI N VENOUS 2 AMERIC AMERIC BLOOD HOLDING HOLDING VENIPUNCT URE COMPREHEN 82535 LAB [facility] LAB HEIDI SIVE 2 AMERIC AMERIC METABOLIC HOLDING HOLDING PANEL COMPREHEN 04616 LAB HE[facility]I LAB HEIDI SIVE 1 AMERIC AMERIC METABOLIC HOLDING HOLDING PANEL C-REACTIV 06581 LAB HE[facility]I LAB HEIDI E PROTEIN 1 AMERIC AMERIC HOLDING HOLDING COLLECTIO 72642 LAB HE[facility] LAB HEIDI N VENOUS 1 AMERIC AMERIC BLOOD HOLDING HOLDING VENIPUNCT URE BLOOD 20008 LAB HE[facility]I LAB HEIDI COUNT 1 AMERIC AMERIC COMPLETE HOLDING HOLDING AUTOMATED RADEX 37807 [place] KAP[place]OR JAM ANKLE 1 MEDICAL COMPLETE SERV MINIMUM 3 FOUNDATIO VIEWS WALKING L4360 DJO, Hangar Seven DJO, Hangar Seven BOOT 1 PNEUMATC &/ VACUUM PREFAB CUSTM FIT COLLECTIO 17348 [facility] OF N VENOUS 1 [facility] INC [facility]IO INC BLOOD VENIPUNCT URE LIPID 86182 [facility] PANEL 1 [facility] INC TRANSFERA 63304 [facility] SE 1 Payveris INC Payveris INC ASPARTATE AMINO AST SGOT RADIOLOGI 28570 [facility] 1 Y Y [facility] ON FOOT 2 VIEWS APPLICATI 81694 [place] ON SHORT 1 MEDICAL MEDICAL LEG CAST SERV SERV WALKING/A FOUNDATIO FOUNDATIO MBULATORY CAST Q4038 TARAS MARTINEZ SUPPLIES 1 MEDICAL [place]AMAL[place] SHORT LEG SERV CAST FOUNDATIO ADULT FIBERGLAS S CAST Q4038 TARAS MARTINEZ SUPPLIES 1 MEDICAL [place] SHORT LEG SERV CAST FOUNDATIO ADULT FIBERGLAS S APPLICATI 56412 TARAS GRAJEDA ON SHORT 1 MEDICAL MEDICAL LEG CAST SERV SERV BELOW FOUNDATIO FOUNDATIO KNEE-TOE PHYSICAL 25796 [facility] THERAPY 0 Y Y [facility] G0378 [facility] OBSERVATI 0 Y Y ON HOSPITAL HOSPITAL SERVICE PER HOUR ANESTHESI 28017 TARAS GERALD A ON BONY 0 [place] [address] TARAS GERALD GUIDANCE 0 MEDICAL JUS NEEDLE SERV PLACEMENT FOUNDATIO IMG S&I ARTHRODES 76352 TARAS MARTINEZ IS 0 MEDICAL [place] SUBTALAR SERV FOUNDATIO BONE 02923 TARAS MARTINEZ GRAFT ANY 0 MEDICAL [place] DONOR SERV AREA FOUNDATIO MAJOR/LAR GE FLUOROSCO 43472 [facility] PY SPX >1 0 Y Y [facility] PHYS/QHP TIME INJECTION 12855 TARAS MADELAINECOTT 0 MEDICAL JUS ANESTHETI SERV C AGENT FOUNDATIO SCIATIC NRV SINGLE INJECTION 95004 TARAS MADELAINECOKAVEH 0 MEDICAL JUS ANESTHETI SERV C AGENT FOUNDATIO FEMORAL NERVE SINGLE CUL BACT 95240 LAB [facility] LAB HEIDI XCPT 0 AMERIC AMERIC URINE HOLDING HOLDING BLOOD/STO OL AEROBIC ISOL CULTURE 61189 LAB [facility] LAB HEIDI BACTERIAL 0 AMERIC AMERIC ANY HOLDING HOLDING SOURCE ANAEROBIC ISO&ID SMR PRIM 17993 LAB [facility]I LAB HEIDI SRC 0 AMERIC AMERIC GRAM/GIEM HOLDING HOLDING SA STAIN BCT FUNGI/[place] [address] [place] [facility] TROPONIN 0 [facility] QUANTITAT INC INC COURTNEY BLOOD 74279 [place] [facility] COUNT 0 [facility] COMPLETE INC INC AUTO&AUTO DIFRNTL WBC ECG 48017 [place] ROUTINE 0 [facility] ECG INC INC W/LEAST 12 LDS TRCG ONLY W/O I&R ECG 55595 [place] MCKEMIE ROUTINE 0 [facility] W/LEAST P 12 LDS I&R ONLY PRESSURIZ 29938 [place] [facility] ED/NONPRE 0 [facility] SSURIZED INC INC INHALATIO N TREATMENT BASIC 48821 [place] [facility] METABOLIC 0 [facility] PANEL INC INC CALCIUM TOTAL CREATINE 88467 [place] [facility] KINASE 0 [facility] TOTAL INC INC THER 64439 [place] COLEMAN PROPH/DX 0 [facility] NJX IV INC INC PUSH SINGLE/1S T SBST/DRUG RADIOLOGI 38083 [place] DAWNA C 0 MEDICAL TIERRA EXAMINATI IMAGING ON CHEST ASS SINGLE VIEW FRONTAL CREATINE 34391 [place] KINASE MB 0 [facility] FRACTION INC INC ONLY CT LOWER 67639 [place] [facility] EXTREMITY 0 [facility] W/O INC INC CONTRAST MATERIAL 3D 53951 [place] [facility] RENDERING 0 [facility] INC INC W/INTERP& POSTPROC DIFF WORK STATION DUP-SCAN 95381 [place] [facility] XTR VEINS 0 [facility] INC INC UNILATERA L/LIMITED STUDY INJECTION J1040 MONICA ANDERSON 9 N, GEREMIAS DOUGHERTY METHYLPRE DNISOLONE ACETATE 80 MG CV STRS 14019 MONICA ANDERSON TST 9 N, GEREMIAS DOUGHERTY XERS&/OR RX CONT ECG W/O I&R CV STRS 34342 [facility] TST 9 N N XERS&/OR COMMUNITY COMMUNITY RX CONT [facility] ECG TRCG ONLY MYOCRD 61159 [facility] 9 N FAMILY [facility] WALL PHYS PSC MOTION QUAL/RENEE STD MYOCRD 00865 [facility] DELILAH AVENDANO STD 9 N FAMILY [place] EJEC FXJ PHYS PSC TECHNETIU A9500 [facility] TC-99M 9 N N [facility] COMM[facility]ITY COMMUNITY DX PER HOSPITAL HOSPITAL STUDY DOSE BLOOD 78752 MONICA ANDERSON OCCULT 9 Lily, GEREMIAS DOUGHERTY PEROXIDAS E ACTV QUAL FECES 1 DETER MYOCRD 97644 [facility] PRFUJ IMG 9 N N TOMOG [facility] SPECT [facility] STD CV STRS 60885 MONICA ANDERSON TST 9 GEREMIAS Bautista ROBERT XERS&/OR RX CONT ECG I&R ONLY IRON 43651 [facility] BINDING 9 [facility] CAPACITY COLLECTIO 28401 [facility] N VENOUS 9 [facility] [place] [address] [facility] IRON 9 [facility] COLLECTIO 07213 [facility] N VENOUS 9 [facility] BLOOD VENIPUNCT URE BLOOD 76040 [facility] COUNT 9 [facility] COMPLETE AUTO&AUTO DIFRNTL WBC INFLUENZA G9141 MONICA ANDERSON A H1N1 9 N, GEREMIAS DOUGHERTY IMMUNIZAT ION ADMINISTR ATION PWR E2365 ALLIED ALLIED WHLCHAIR 9 HOME HOME ACSS U-1 MEDICAL, MEDICAL, SEALED INC. INC. LEAD ACID BATTRY EA REPR/SRVC K0739 ALLIED ALLIED DME NOT 9 HOME HOME O2 RQR MEDICAL, MEDICAL, TECH INC. INC. CMPNT PER 15 MINS CULTURE 24377 LAB [facility] LAB HEIDI BACTERIAL 9 AMERIC AMERIC ANY HOLDING HOLDING SOURCE ANAEROBIC ISO&ID CUL BACT 66619 [facility] LAB HEIDI XCPT 9 AMERIC AMERIC URINE HOLDING HOLDING BLOOD/STO OL AEROBIC ISOL SUSCEPTIB 82063 [facility] LAB HEIDI LTY STDY 9 AMERIC AMERIC ANTIMICRB HOLDING HOLDING IAL MICRO/AGA R DILUTJ SMR PRIM 98681 [facility] LAB HEIDI SRC 9 AMERIC AMERIC GRAM/GIEM HOLDING HOLDING SA STAIN BCT FUNGI/[place] [address] [facility] PROSTATE 9 [facility] SPECIFIC ANTIGEN TOTAL COLLECTIO 32452 [facility] N VENOUS 9 [facility] BLOOD VENIPUNCT URE LIPID 85834 [facility] PANEL 9 [facility] INC COMPREHEN 97264 [facility] SIVE 9 [facility] METABOLIC PANEL FLUOROSCO 67473 [facility] PY SPX >1 9 Y [facility] PHYS/QHP TIME INJECTION J3010 [facility] FENTANYL 9 Y Y CITRATE [facility] 0.1 MG REMOVAL 85481 TARAS JUAN, IMPLANT 9 MEDICAL TONO J DEEP SERV FOUNDATIO L[place] I 00373 TARAS ROBERTOULL, SURG 9 MEDICAL FAUSTINO PATHOLOGY SERV GROSS FOUNDATIO EXAMINATI ON ONLY INJECTION J2175 [facility] 9 Y Y MEPERIDIN [facility] E HCL PER 100 MG RINGERS J7120 [facility] LACTATE 9 Y Y INFUSION [facility] UP TO 1000 CC INJECTION J2270 [facility] MORPHINE 9 Y Y SULFATE [facility] UP TO 10 MG INJECTION J0690 [facility] 9 Y Y CEFAZOLIN [facility] SODIUM 500 MG SMR PRIM 51860 [facility] SRC 9 Y Y GRAM/GIEM [facility] SA STAIN BCT FUNGI/LEONIDES L CUL BACT 78301 [facility] XCPT 9 Y Y URINE [facility] BLOOD/STO OL AEROBIC ISOL BLOOD 15350 [facility] COUNT 9 Y Y COMPLETE [facility] AUTOMATED ECG 71591 TARAS RENA, ROUTINE 9 MEDICAL MARIXA G ECG SERV W/LEAST FOUNDATIO 12 LDS I&R ONLY ECG 58788 [facility] ROUTINE 9 Y Y ECG [facility] W/LEAST 12 LDS TRCG ONLY W/O I&R COLLECTIO 53654 [facility] N VENOUS 9 Y Y BLOOD [facility] VENIPUNCT URE BASIC 79368 [facility] METABOLIC 9 Y Y PANEL [facility] CALCIUM TOTAL RADEX 46631 [facility] FOOT 9 Y Y COMPLETE [facility] MINIMUM 3 VIEWS CELL 46099 [facility] COUNT 9 Y Y MISC BODY [facility] FLUIDS W/DIFFERE NTIAL COUNT ARTHROCEN 89203 SASKIA SCHAEFFER TESIS 9 LTH II, NESHA ASPIR&/IN ORTHOPAED A J MAJOR IC JT/BURSA SURGEONS W/O US PSC INJ J0702 SASKIA SCHAEFFER BETAMETHA 9 LTH II, NESHA SONE ORTHOPAED A ACETATE & IC SURGEONS PHOSPHATE PSC 3 MG COLLECTIO 49714 [facility] N VENOUS 9 Y Y BLOOD [facility] VENIPUNCT URE CUL BACT 55427 [facility] XCPT 9 Y Y URINE [facility] BLOOD/STO OL AEROBIC ISOL SMR PRIM 41080 [facility] SR[facility] 9 Y Y GRAM/GIEM [facility] SA STAIN BCT FUNGI/LEONIDES L REP/NONRO E1340 ALLIED ALLIED UTINE 9 HOME HOME SRVC DME MEDICAL, MEDICAL, RQR SKL INC. INC. TECH LABR-15 MIN PWR E2365 ALLIED ALLIED WHLCHAIR 9 HOME HOME ACSS U-1 MEDICAL, MEDICAL, SEALED INC. INC. LEAD ACID BATTRY EA SBSQ 16700 [facility] 8 EMERGENCY N, CARE/DAY SERVICES TADARRO 25 MINUTES ASSOCIATE S INITIAL 50043 [facility] INPATIENT 8 EMERGENCY N, CONSULT SERVICES TADARRO NEW/ESTAB PT 110 ASSOCIATE MIN S ANESTH 73166 COMMONKRANTHI CAUSEY 8 [facility] RE[facility] Harvey ANESTHESI ARTHROSCO A [facility] PIC PROC KNEE JOINT LEVEL III 10291 [place] ANN, SURG 8 MEDICAL TIM E PATHOLOGY SERV FOUNDATIO GROSS&VENUS ROSCOPIC EXAM ANES 30507 [place] HIRO, [facility] 8 ANESTHESI JENNIFER Vieira INTESTINE A GROUP [facility] ENDOSCOPY DISTAL DUODENUM COLONOSCO 46202 [facility], PY FLX DX 8 [place] RICHY G W/COLLJ GASTROENT SPEC WHEN PFRMD CELL 80443 [facility] COUNT 8 Y Y [facility] FLUIDS W/DIFFERE NTIAL COUNT SMR PRIM 53721 UN[facility] SRC 8 Y Y GRAM/GIEM [facility] SA STAIN BCT FUNGI/LEONIDES L CUL BACT 44262 [facility] 8 Y Y URINE [facility] BLOOD/STO OL AEROBIC ISOL SMALL A7004 PULMO [...] IPRATROPI UM BROM TO 0.5 MG DUP-SCAN 26912 [facility] LXTR 8 N N ART/ARTL [facility] COMPL BI STUDY ALBUTEROL [...] UM BROM TO 0.5 MG RADIOLOGI 02-14-200 44317 MAKSIM MAKSIM C 8 II, NESHA II, NESHA EXAMINATI A A ON KNEE 1/2 VIEWS RADIOLOGI 52866 MAKSIM MAKSIM C EXAM 8 II, NESHA II, NESHA KNEE A A COMPLETE 4/MORE VIEWS ALBUTEROL J7620 PULMO PULMO TO 2.5 8 DOSE DOSE MG & PHARMACY PHARMACY IPRATROPI UM BROM TO 0.5 MG PHRM Q0513 PULMO PULMO DISPENSIN 8 DOSE DOSE G FEE PHARMACY PHARMACY INHALATIO N RX; PER 30 DAYS Encounters Encounter Start End Date Code Location Performer Type Date [facility] [place] [address] 3 Y [facility] [place] 3 3 [facility] 3 [facility] [place] [address] 3 INPATIENT HOSPITAL EMERGENCY 22257 TARAS SALAZAR DEPT 3 3 MEDICAL JORGE VISIT SERV HIGH FOUNDATIO SEVERITY& THREAT [facility] Emergency NICOLÁS Keene MD (ER) 3 22:37 3 00:59 [facility] [place] 3 3 [facility] OFFICE 70600 [facility]IS [facility] 3 3 CENTER T VISIT OF 25 [facility] [place] [address] [facility] Emergency NICOLÁS Millard MD (ER) 3 15:20 3 17:49 [facility] [place] 3 3 [facility] EMERGENCY 68295 POPPY SANTA DEPT 3 3 EMERGENCY VISIT SERVICES HIGH SEVERITY& THREAT [facility] [place] 3 3 [facility] OFF[facility] 33264 Avtar Candice LAZCANO OUTPATIEN 3 3 FILEMON SHAH T VISIT [facility] 15 MINUTES Emergency NICOLÁS Millard MD (ER) 3 14:54 3 16:00 [facility] EMERGENCY 77574 [place] [address] [facility] T VISIT HIGH/URGE NT SEVERITY HOSPITAL [place] - 3 3 [facility] OUTPATIEN [facility] T EMERGENCY 65792 POPPY SANTA DEPT 3 3 EMERGENCY VISIT SERVICES HIGH SEVERITY& THREAT [facility] OFFICE 53300 ARTHRITIS ALBERTO RIT OUTPATIEN 3 3 CENTER T VISIT OF 25 [facility] OFFICE 99398 Avtar LAZCANO OUTPATILENNY 3 3 FILEMON SHAH T VISIT [facility] 15 MINUTES HOSPITAL [place] [facility] 3 3 [facility] OFF[facility] 25487 ARTHRITIS ALBERTO RIT OUTPATIEN 3 3 CENTER T VISIT OF 10 [facility] [place] - 3 3 [facility] OUTPATIEN [facility] [place] - 3 3 [facility] OUTPATIEN [facility] OFFICE 48425 ARTHRITIS ALBERTO RIT OUTPATIEN 3 3 CENTER T VISIT OF 25 [facility] [place] - 3 3 [facility] OUTPATIEN [facility] UNIVERSIT - [address] [facility] T OFFICE 83301 TARAS THOMPSON OUTPATIEN 3 3 MEDICAL JAM T VISIT SERV 40 FOUNDATIO [facility] [place] - 3 3 [facility] OUTPATIEN [facility] EMERGENCY 70695 TARAS LANTIGUA DEPT 3 3 MEDICAL FACULTY SUPPORT COORDINATOR VISIT SERV HIGH FOUNDATIO SEVERITY& THREAT [facility] UNIVERSIT - 3 3 Y INPATIENT HOSPITAL OFFICE 54438 TARAS KODY OUTPATIEN 3 3 MEDICAL YATACO T VISIT SERV ANG 25 FOUNDATIO [facility] UNIVERSIT - 2 3 Y INPATIENT HOSPITAL EMERGENCY 59899 POPPY KEENE DEPT 2 2 EMERGENCY VENUS VISIT SERVICES HIGH SEVERITY& THREAT [facility] EMERGENCY 96703 POPPY SANTA DEPT 2 2 EMERGENCY VISIT SERVICES HIGH SEVERITY& THREAT [facility] [place] [address] 2 N OUTPATIEN [facility] H[facility]PITA OFFICE 49794 CULBERTSO CULBERTSO OUTPATIEN 2 2 N KALYAN N KALYAN T VISIT 15 MINUTES OFFICE 16541 CULBERTSO CULBERTSO OUTPATIEN 1 1 N KALYAN N KALYAN T VISIT 15 MINUTES HOSPITAL UNIVERSIT - 1 1 Y [facility] UNIVERSIT - 1 1 Y [facility] UNIVERSIT - 0 0 Y [facility] T OFFICE 24115 CULBERTSO CULBERTSO OUTPATIEN 0 0 N KALYAN N KALYAN T VISIT 15 MINUTES OFFICE 73516 TARAS JUAN OUTPATIEN 0 0 MEDICAL KAMALA T VISIT SERV 15 FOUNDATIO [facility] EMERGENC[facility] 24964 [place] 0 0 MEM [facility] DEPARTMEN INC T VISIT MODERATE SEVERITY EMERGENCY 79995 POPPY MORRISSEY DEPT 0 0 EMERGENCY III TRISTA VISIT SERVICES HIGH SEVERITY& THREAT [facility] [place] - 0 0 MEM HOSP OUTPATIEN INC T OFFICE 71774 TARAS MARTINEZ OUTPATIEN 0 0 MEDICAL KAMALA T VISIT SERV 15 FOUNDATIO [facility] [place] - 0 0 [facility] OUTPATIEN INC T EMERGENCY 46024 [place] 0 0 [facility] DEPARTMEN INC T VISIT LOW/MODER SEVERITY OFFICE 05701 CULBERTSO CULBERTSO OUTPATIEN 9 9 GEREMIAS Bautista ROBERT T VISIT 15 MINUTES HOSPITAL [facility] - 9 9 N [facility] OFFICE 90378 CULBERTSO CULBERTSO OUTPATIEN 9 9 GEREMIAS Bautista ROBERT T VISIT 15 MINUTES OFFICE 04479 CULBERTSO CULBERTSO OUTPATIEN 9 9 NGEREMIAS ROBERT T VISIT 25 MINUTES OFFICE 13915 CULBERTSO CULBERTSO OUTPATIEN 9 9 GEREMIAS Bautista ROBERT T VISIT 15 MINUTES HOSPITAL [facility] - [address] [facility] OFFICE [address]14 [place] KAM MARTINEZ 9 9 MEDICAL TONO J ION SERV NEW/ESTAB FOUNDATIO PATIENT 40 MIN HOSPITAL UNIVERSIT - [address] [facility] HOSPITAL UNIVERSIT - [address] [facility] OFFICE 69281 [facility] MAKSIM [facility] 9 9 [facility] NESHA CLEMONS T VISIT ORTHOPAED A 15 IC MINUTES SURGEONS [facility] UNIVERSIT - [address] [facility] OFFICE 92091 CULBERTSO CULBERTSO OUTPATIEN 8 8 NGEREMIAS ROBERT T VISIT 15 MINUTES HOSPITAL [facility] - 8 8 N [facility]OSPITAL OFFICE 44960 MAKSIM MAKSIM [facility] 8 8 II, NESHA JEFFRIES II T VISIT A A 15 MINUTES
--- OUTSIDE RECORDS SUMMARY | 2016-10-07 14:28 | External Medical Summary Rpt ---
Author Author , Organization [employer] Address Unknown Phone Unavailable Care Team Providers Care Exhauster Name Role Phone A Candice COLBERT MD [...] SOHEILA DEENA [facility] Unavailable Unavailable SERVICE, [facility] Unavailable Unavailable SERVICE, [facility] CAMILLE KET, CAMILLE KET Unavailable Unavailable GRZEGORZ TOUCHER UP, GRZEGORZ Unavailable Unavailable TOUCHER UP TITI JAG, TITI Unavailable Unavailable JAG [facility] [...] NAN JESSICA VENUS, JESSICA Unavailable Unavailable V[facility]US [facility] Unavailable Unavailable HOSPITA, [facility] Unavailable [facility]available [facility], [facility], [facility] Unavailable [facility]available [facility] Unavailable Unavailable INC, [facility] Unavailable Unavailable HOSPITAL P, [facility]PITAL P DUBOIS KAMALA, DUBOIS KAMALA Unavailable Unavailable RENA, MARIXA G, RENA, Unavailable Unavailable MARIXA G [facility] HARLEY OSCAR, Unavailable Unavailable [...] [facility] Unavailable Unavailable [facility]INGS, [facility] Unavailable Unavailable [facility]INGS, [facility], Unavailable Unavailable [facility] JUAN KAMALA, Unavailable Unavailable JUAN KAMALA TONO MARTINEZ, Unavailable Unavailable TONO MARTINEZ HAYWOOD MARION, HAYWOOD Unavailable Unavailable MARION JESICA JAM, JESICA JAM Unavailable Unavailable TIAGO JR DWI, TIAGO Unavailable Unavailable JR DWI LUKINS TIERRA, LUKINS Unavailable Unavailable TIERRA [facility] Unavailable Unavailable SERVICES, [facility] MAKSIM II, NESHA A, Unavailable [...] SADIE GIRARD PRE, SHAJI Unavailable Unavailable PRE [facility], Unavailable Unavailable [facility] Unavailable Unavailable [facility], [facility] INTER GERALD MINA, Unavailable Unavailable [...] SERV PULMONARY FOUNDATIO FIBROSIS 7245 UNSPECIFIED 03-19-2013 [facility] [address] [address] OTHER 03-19-2013 [facility] [place] [address] OBSTRUCTIVE 03-10-2013 [facility] APNEA MEDICAL EQUIPME 27159 OTHER 03-07-2013 [place] [facility] LUNG NOT INC ELSEWHERE CLASSIFIED 7242 LUMBAGO 03-06-2013 [facility] INC V571 OTHER 03-06-2013 [facility] THERAPY INC 79027 OTHER 03-01-2013 [place] [facility] CONDITIONS SERV OF BRAIN F[facility]AT[facility] 7140 RHEUMATOID 03-01-2013 [place] [facility] ARTHRITIS SERV [facility] 7840 HEADACHE 03-01-2013 [place] [facility] 88382 DIARRHEA 03-01-2013 [place] [facility] 7930 NONSPECIFIC 03-01-2013 [place] [facility] ABN FNDNG SERV RAD & OTH FOUNDAT[facility] EXM SKULL & HEAD E8889 UNSPECIFIED 03-01-2013 [place] [facility] FALL [place] [facility] 86111 OTHER 02-28-2013 [place] [facility] CHRONIC SERV PAIN F[facility] 4019 UNSPECIFIED 02-28-2013 [place] [facility] ESSENTIAL SERV HYPERTENSIO FOUNDATIO N 99768 FEVER 02-28-2013 [place] [facility] UNSPECIFIED SERV [facility] 14096 OTHER 02-28-2013 [place] [facility] NONSPECIFIC SERV ABNORMAL [facility] FINDING OF LUNG FIELD 412 OLD 02-27-2013 [facility] INFARCTION 95004 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 FAILURE UNSPECIFIED 65407 RHEUMATOID 02-27-2013 [facility] V4361 SHOULDER 02-27-2013 [place] [facility] REPLACEMENT FOUNDAT[facility] BY OTHER MEANS V462 DEPENDENCE 02-27-2013 [facility]OSP[facility] FOR SUPPLEMENTA L OXYGEN 89297 OBSTRUCTIVE 02-26-2013 [facility] P WITH EXACERBATIO N V5869 LONG-TERM 02-20-2013 [facility] (CURRENT) CENTER OF USE OF LEXINGTO OTHER MEDICATIONS V6751 F/U EXAM 02-20-2013 [facility] FOLLOW CMPL [place] [facility] W/HIGH-RISK MED NEC 24664 COR 02-12-2013 [facility] UNSPEC TYPE VESSEL PECHANGA/RAUL T 4940 BRONCHIECTA 01-31-2013 [place] [facility] SIS WITHOUT SERV ACUTE FOUNDATIO EXACERBATIO N 08586 IDIOPATHIC 01-31-2013 [facility] 7856 ENLARGEMENT 01-31-2013 [place] [facility] OF LYMPH SERV NODES FOUNDATIO 09456 SHORTNESS 01-31-2013 [place] [facility] [place] BREATH SERV FOUNDATIO 66812 OTHER 01-31-2013 [facility] RESPIRATORY AMBULANCE SERVICE COMPLICATIO NS 0529 VARICELLA 01-06-2013 A Candice PINZON MD PSC MENTION OF COMPLICATIO N 7862 COUGH 01-06-2013 A Candcie COLBERT MD PSC 4660 ACUTE 11-06-2012 A Candice COLBERT BRONCHITIS PSC V5812 ENCOUNTER 09-25-2012 [facility] FOR CENTER OF ANTINEOPLAS LEXINGTO TIC IMMUNOTHERA PY 2859 UNSPECIFIED 08-31-2012 [facility] 4841 PNEUMONIA 08-31-2012 [place] [facility] IN SERV CYTOMEGALIC FOUNDATIO INCLUSION DISEASE 5168 OTH SPEC 08-31-2012 [place] [facility] ALVEOL&DEONNA SERV ETOALVEOL FOUNDATIO PNEUMONOPAT HIES 33401 NAUSEA WITH 08-02-2012 [place] [facility] VOMITING SERV F[facility] V1209 PERSONAL HX 08-02-2012 [place] [facility] O[place] [facility] INFECTIOUS& FOUNDATIO PARASITIC DISEASE 2724 OTHER AND 07-31-2012 [facility] HYPERLIPIDE ALEKSANDAR 5589 OTH&UNSPEC 07-31-2012 [place] [facility] NONINFECTIO SERV US FOUNDATIO GASTROENTER ITIS&COLITI S 21588 VOMITING 07-31-2012 [facility] [place] INTER 53732 ABDOMINAL 07-31-2012 [place] [facility] PAIN, SERV EPIGASTRIC FOUNDATIO 68490 SYSTEMIC 07-31-2012 [facility] Y RESPONSE SYNDROME UNSPEC V1269 PERSONAL 07-31-2012 [place] [facility] HISTORY SERV OTHER FOUNDATIO DISEASES RESPIRATORY SYS 514 PULMONARY 07-03-2012 [facility] [place] CONGESTION RADIOLOGY AND HYPOSTASIS 7295 PAIN IN 07-03-2012 JERRI ESPERANZA SOFT TISSUES OF LIMB 7823 EDEMA 07-03-2012 JERRI ESPERANZA 5119 UNSPECIFIED 07-01-2012 [facility] [place] PLEURAL RADIOLOGY EFFUSION 56708 OTHER 06-20-2012 [place] [facility] DISEASES OF SERV NASAL FOUNDATIO CAVITY AND SINUSES 5121 IATROGENIC 06-16-2012 [place] [facility] PNEUMOTHROA SERV X FOUNDATIO 71384 ACUTE AND 06-16-2012 [place] [facility] CHRONIC SERV RESPIRATORY FOUNDATIO FAILURE 08255 SEPTIC 06-16-2012 [place] [facility] SHOCK SERV [facility] 0785 CYTOMEGALOV 06-15-2012 [facility] DISEASE THE B 43475 CHEST PAIN 06-15-2012 PALLIATIVE UNSPECIFIED CARE CTR OF THE B 7850 UNSPECIFIED 06-11-2012 [place] [facility] SERV TACHYCARDIA FOUNDATIO 4279 UNSPECIFIED 05-17-2012 [place] [facility] CARDIAC SERV DYSRHYTHMIA FOUNDATIO 41339 ACUTE 05-17-2012 [place] [facility] RESPIRATORY SERV FAILURE FOUNDATIO 43484 OTHER 04-24-2012 [facility] SEPTICEMIA 1124 CANDIDIASIS 04-24-2012 [facility] 5070 PNEUMONITIS 04-24-2012 [facility] INHALATION OF FOOD OR VOMITUS 5100 EMPYEMA 04-24-2012 [facility] FISTULA 5183 PULMONARY 04-22-2012 [facility] A IMAGING ASS 28549 REFLUX 08-03-2011 [facility] ESOPHAGITIS [place] 91244 OTHER 08-03-2011 [facility] SYMPTOMS [place] INVOLVING DIGESTIVE SYSTEM OTHER 490 BRONCHITIS 07-13-2010 [facility] NOT [place] SPECIFIED ACUTE OR CHRONIC 64032 ASTHMA, 07-13-2010 [facility] UNSPECIFIED [place] , UNSPECIFIED STATUS 85884 PAIN IN 07-08-2010 [facility]INT, [facility] ANKLE AND FOOT 92732 DISORDER OF 07-08-2010 [place] [facility] BONE AND SERV CARTILAGE FOUNDATIO UNSPECIFIED V454 ARTHRODESIS 07-08-2010 [place] [facility] STATUS [facility] V5489 OTHER 07-08-2010 [facility] AFTERCARE V5409 OTH 06-17-2010 [place] [facility] SERV INVOLVING FOUNDATIO INTERNAL FIXATION DEVICE V6700 FOLLOW-UP 06-01-2010 [place] [facility] EXAMINATION SERV FOLLOWING FOUNDATIO UNSPEC SURGERY 57022 PRIMARY 05-12-2010 [place] [facility] LOCALIZED SERV OSTEOARTHRO FOUNDATIO SIS ANKLE AND FOOT 25010 PAIN IN 05-12-2010 [place] [facility], SERV LOWER LEG FOUNDATIO V0481 NEED 05-12-2010 [facility] VACCINATION &INOCULATIO N FLU V5849 OTHER 05-12-2010 [place] [facility] SPECIFIED SERV AFTERCARE FOUNDATIO FOLLOWING SURGERY 4659 ACUTE URIS 04-17-2010 [facility] OF [place] UNSPECIFIED SITE 69601 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 [place] [facility] RHEUMATISM SERV ANKLE AND FOUNDATIO FOOT 79261 PAIN IN 04-02-2010 [facility] JOINT, [employer] 61202 OBST 03-12-2010 [facility] P W/ACUTE BRONCHITIS 27997 PAINFUL 03-12-2010 [facility] 52795 UNSPECIFIED 05-20-2009 GER[facility]IAS BANERJEE ARTHROPATHY SITE UNSPECIFIED 4011 ESSENTIAL 05-09-2009 [facility] HYPERTENSI[facility] PH[facility] N, BENIGN PSC 58509 OTHER CHEST 05-09-2009 [facility] PAIN GEREMIAS V7651 SPECIAL 05-09-2009 [facility] SCREENING GEREMIAS FOR MALIGNANT NEOPLASMS COLON 7808 GENERALIZED 05-05-2009 [facility] BANERJEE HYPERHIDROS IS 5960 BLADDER 03-18-2009 [facility] [place] INC OBSTRUCTION 2720 PURE 03-17-2009 [facility] HYPERCHOLES GEREMIAS TEROLEMIA 22418 ESOPHAGEAL 03-17-2009 [facility] REFLUX GEREMIAS 48924 PRIMARY 03-17-2009 [facility] LOCALIZED GEREMIAS OSTEOARTHRO SIS OTH SPEC SITES 78580 [facility] 11-26-2008 [facility] INT ORTHOPEDIC DEVC IMPL&GFT 10048 OT COMPS 11-26-2008 [place] [facility] DUE OTH SERV INTRL FOUNDATIO ORTHOPED DEVICE IMPL&GFT 7271 BUNION 11-11-2008 [facility] 97887 NONSPECIFIC 11-11-2008 [facility] ER ELECTROCARD IOGRAM V4589 OTHER 11-11-2008 [place] [facility] L STATUS OTHER 29911 EFFUSION OF 09-19-2008 [facility] JOINT ORTHOPAEDIC SURGEONS PSC 04771 VILLONODULA 09-19-2008 [facility] SYNOVITIS, ORTHOPAEDIC LOWER LEG SURGEONS PSC 5185 PULMONARY 05-16-2008 [facility] FOLLOW SERVICES [facility] SURGERY 53317 UNSPECIFIED 05-15-2008 [place] [facility] [place] [address] EXTRINSIC 11-02-2007 PULMO DOSE ASTHMA, PHARMACY UNSPECIFIED 55169 OSTEOARTHRO 07-13-2007 MAKSIM II, SIS UNSPEC NESHA A WHETHER GEN/LOC ANK&FOOT 10078 TENOSYNOVIT 07-13-2007 MAKSIM II, IS OF FOOT NESHA A AND ANKLE Procedures Procedure DOS Code Location Performer Comment PRTBLE E0431 AYLIN AYLIN GASEOUS 4 HOME HOME O2 SYS MEDICAL MEDICAL RENT; EQUIPME EQUIPME FLWMTR HUMIDFR&M ASK O2 CONC 1 E1390 AYLIN VIERA DEL PORT 4 HOME HOME 85%/>02 MEDICAL MEDICAL CONC AT EQUIPME EQUIPME PRSC FLW RATE PULMONARY 99364 [facility] STRESS 3 Y Y [facility] SPMTRY 88137 [place] W/VC 3 MEDICAL NUVIA EXPIRATOR SERV Y RACHEL FOUNDATIO W/WO MXML VOL VNTJ NEBULIZER E0570 AYLIN VIERA WITH 3 HOME HOME COMPRESSO MEDICAL MEDICAL R EQUIPME EQUIPME PRTBLE E0431 YALIN VIERA GASEOUS 3 HOME HOME O2 SYS MEDICAL MEDICAL RENT; EQUIPME EQUIPME FLWMTR HUMIDFR&M ASK O2 CONC 1 E1390 AYLIN VIERA DEL PORT 3 HOME HOME 85%/>02 MEDICAL MEDICAL CONC AT EQUIPME EQUIPME PRS FLW RATE THERAPEUT 76101 [place] IC PX 1/> 3 [facility] AREAS INC INC EACH 15 MIN EXERCISES E-STIM G0283 [place] [facility] 1/> AREAS 3 [facility] OTH THAN INC INC WND CARE PART TX PLAN E-STIM G0283 [place] [facility] 1/> AREAS 3 [facility]OS[facility] OTH THAN INC INC WND CARE PART TX PLAN THERAPEUT 99912 [place] [facility] IC PX 1/> 3 [facility] AREAS INC INC EACH 15 MIN EXERCISES APPLICATI 29070 [place] [facility] ON 3 [facility] MODALITY INC INC 1/> AREAS HOT/COLD PACKS CONTINUOU E0601 AYLIN VIERA S 3 HOME HOME POSITIVE MEDICAL MEDICAL AIRWAY EQUIPME EQUIPME PRESSURE DEVICE THERAPEUT 69289 [place] PX 1/> 3 [facility] AREAS INC INC EACH 15 MIN EXERCISES E-STIM G0283 [place] [facility] 1/> AREAS 3 [facility]OS[facility] OTH THAN INC INC WND CARE PART TX PLAN SPUTUM 24332 [place] [facility] OBTAINING 3 [facility] SPEC INC INC AEROSOL INDUCED TX SPX CUL BACT 62733 [place] [facility] XCPT 3 [facility] URINE INC INC BLOOD/STO OL AEROBIC ISOL SMR PRIM 60937 [place] [facility] SRC 3 [facility] GRAM/GIEM INC INC SA STAIN BCT FUNGI/LEONIDES L E-STIM G0283 [place] [facility] 1/> AREAS 3 [facility] OTH THAN INC INC WND CARE PART TX PLAN THERAPEUT 58558 [place] IC PX 1/> 3 [facility] AREAS INC INC EACH 15 MIN EXERCISES RADIOLOGI 60373 [place] DUBOIS KAMAL[place] C EXAM 3 MEDICAL CHEST 2 SERV VIEWS FOUNDATIO FRONTAL&[place] [address] [place] ARINA MCCOY HEAD/BRAI 3 MEDICAL N W/O SERV CONTRAST FOUNDATIO MATERIAL SBSQ 78067 [facility] 3 MEDICAL PRE CARE/DAY SERV 25 FOUNDATIO MINUTES SBSQ 15309 [facility] 3 MEDICAL PRE CARE/DAY SERV 25 FOUNDATIO MINUTES RADIOLOGI 28476 [place] DUBOIS KAMAL[place] C EXAM 3 MEDICAL CHEST 2 SERV VIEWS FOUNDATIO FRONTAL&L ATERAL SMR PRIM 18470 [place] [facility] SRC 3 [facility] GRAM/GIEM INC INC SA STAIN BCT FUNGI/LEONIDES L INITIAL 79844 [facility] 3 MEDICAL PRE CARE/DAY SERV 70 FOUNDATIO MINUTES CUL BACT 63615 [place] [facility] XCPT 3 [facility] URINE INC INC BLOOD/STO OL AEROBIC ISOL CUL BACT 58482 [place] [facility] AEROBIC 3 [facility] ADDL INC INC METHS DEFINITIV E EA ISOL IAADI 16432 [place] [facility] INFLUENZA 3 [facility] B VIRUS INC INC IAADI 77522 [place] STEVEN[place] INFFLUENZ 3 [facility] A A VIRUS INC INC SUSCEPTIB 96483 [place] [facility] LTY STDY 3 [facility] ANTIMICRB INC INC IAL MICRO/AGA R DILUTJ RADIOLOGI 54235 [place] AYOOB AND C 3 MEDICAL EXAMINATI SERV [place] [address] [place] [facility] INFUSION 3 [facility] THERAPY INC INC PROPHYLAX IS/DX EA HOUR AMB A0427 [facility] SERVICE 3 AMBULANCE AMBULANCE ALS SERVICE SERVICE EMERGENCY TRANSP[place] LEV[place] 1 [place] [address] [place] [facility] INFUSION 3 [facility] THERAPY/P INC INC ROPHYLAXI S /DX 1ST TO 1 [place] [address] [place] [facility] INFUSION 3 [facility] THER INC INC PROPH ADDL SEQUENTIA L TO [address] [facility] MILEAGE 3 AMBULANCE AMBULANCE PER SERVICE SERVICE STATUTE MILE BASIC 39434 [place] [facility] METABOLIC 3 [facility] PANEL INC INC CALCIUM TOTAL CRITICAL 72554 [place] [facility] CARE 3 [facility] ILL/INJUR INC INC ED PATIENT INIT 30-74 MIN RADIOLOGI 87284 [place] [facility] C 3 [facility] EXAMINATI INC INC ON CHEST [place] FRONTAL CULTURE 03190 [place] [facility] BACTERIAL 3 [facility] BLOOD INC INC AEROBIC W/[place] [address] [place] [facility] TROPONIN 3 [facility] QUANTITAT INC INC COURTNEY BLOOD 66812 [place] [facility] COUNT 3 [facility] COMPLETE INC INC AUTO&AUTO DIFRNTL WBC ECG 14923 [place] ROUTINE 3 [facility] ECG INC INC W/LEAST 12 LDS TRCG ONLY W/O I&R CREATINE 98225 [place] [facility] KINASE 3 [facility] TOTAL INC INC THERAPEUT 65678 [place] [facility] IC PX 1/> 3 [facility] AREAS INC INC EACH 15 MIN EXERCISES ECG 78607 [place]ECERR[place] ROUTINE 3 [facility] W/LEAST P 12 LDS I&R ONLY PHYSICAL 45340 [place] THERAPY 3 [facility] EVALUATIO INC INC N BLOOD 48253 [place] [facility] GASES ANY 3 [facility] INC INC COMBINATI ON PH PCO2 PO2 CO2 HCO3 E-STIM G0283 [place] [facility] 1/> AREAS 3 [facility] OTH THAN INC INC WND CARE PART TX PLAN CREATINE 57570 V[place] KINASE MB 3 [facility] FRACTION INC INC ONLY COMPREHEN 45527 [facility] SIVE 3 [facility] HOLDINGS PANEL COLLECTIO 98344 [facility] N VENOUS 3 [facility] BLOOD HOLDINGS HOLDINGS VENIPUNCT URE C-REACTIV 95183 [facility] E PROTEIN 3 [facility] HOLDINGS HOLDINGS BLOOD 96589 [facility] COUNT 3 [facility] COMPLETE HOLDINGS HOLDINGS AUTOMATED PRTBLE E0431 AYLIN VIERA GASEOUS 3 HOME HOME O2 SYS MEDICAL MEDICAL RENT; EQUIPME EQUIPME FLWMTR HUMIDFR&M ASK NEBULIZER E0570 AYLIN VIERA WITH 3 HOME HOME COMPRESSO MEDICAL MEDICAL R EQUIPME EQUIPME O2 CONC 1 E1390 AYLIN VIERA DEL PORT 3 HOME HOME 85%/>02 MEDICAL MEDICAL CONC AT EQUIPME EQUIPME PRSC FLW RATE PLETHYSMO 63865 [place] GRAPHY 3 MEDICAL MEDICAL LUNG SERV SERV VOLUMES FOUNDATIO FOUNDAT[place] W/[place] [address] [place] DIFFUSING 3 MEDICAL CAPACITY SERV FOUNDATIO PULMONARY 04603 [place] STRESS 3 MEDICAL TESTING SERV SIMPLE FOUNDATIO SPMTRY 84069 [place] W/VC 3 MEDICAL EXPIRATOR SERV Y RACHEL FOUNDATIO W/WO MXML VOL VNTJ GASES 72786 [facility] BLOOD PH 3 Y Y DIRECT H[facility] ANSHU XCPT PULSE OXIMITRY ARTERIAL 45826 [facility] PUNCTURE 3 Y Y WITHDRAWA [facility] L BLOOD DX CT THORAX 01964 [facility] W/O 3 Y Y CONTRAST [facility] MATERIAL CONTINUOU E0601 AYLIN VIERA S 3 HOME HOME POSITIVE MEDICAL MEDICAL AIRWAY EQUIPME EQUIPME PRESSURE DEVICE [facility] 32045 [place] SEETHARMR DISCHARGE 3 MEDICAL AJU HAZEL DAY SERV MANAGEMEN FOUNDATIO T 30 MIN/< PRESSURIZ 05886 [place] [facility] ED/NONPRE 3 [facility] SSURIZED INC INC INHALATIO N TREATMENT GROUND A0425 [facility] MILEAGE 3 AMBULANCE AMBULANCE PER SERVICE SERVICE STATUTE MILE AMBULANCE A0429 [facility] SERVICE 3 AMBULANCE AMBULANCE BLS SERVICE SERVICE EMERGENCY TRANSPORT RADIOLOGI 77760 TARAS JESICA ONTIVEROS C EXAM 3 MEDICAL CHEST 2 SERV VIEWS FOUNDATIO FRONTAL&L ATERAL COMPREHEN 14002 [place] SIVE 3 [facility] [place] [address] TARAS JESICA RAMA ANGIOGRAP 3 MEDICAL HY CHEST SERV W/CONTRAS FOUNDATIO T/NONCONT RAST THER 48099 [place] [facility] PROPH/DX 3 [facility] NJX IV INC INC PUSH SINGLE/1S T SBST/DRUG ECG 99238 [place] ORDOÑEZ JR ROUTINE 3 [facility] W/LEAST P 12 LDS I&R ONLY CULTURE 23568 [place] BACTERIAL 3 [facility] BLOOD INC INC AEROBIC W/ID ISOLATES RADIOLOGI 67990 [facility] [facility] C 3 [facility] EXAMINATI INC INC ON CHEST [place] FRONTAL SMR PRIM 62795 [place] SRC 3 [facility] GRAM/GIEM INC INC SA STAIN BCT FUNGI/LEONIDES L SUSCEPTIB 01600 [place] [facility] LTY STDY 3 [facility] ANTIMICRB INC INC IAL MICRO/AGA R DILUTJ BLOOD 63745 [place] [facility] COUNT 3 [facility] COMPLETE INC INC AUTO&AUTO DIFRNTL WBC ECG 96552 [place] [facility] ROUTINE 3 [facility] ECG INC INC W/LEAST 12 LDS TRCG ONLY W/O I&R CUL BACT 40229 [place] [facility] AEROBIC 3 [facility] ADDL INC INC METHS DEFINITIV E EA ISOL CUL BACT 82573 [place] [facility] XCPT 3 [facility] URINE INC INC BLOOD/STO OL AEROBIC ISOL ALBUTEROL J7620 YOUR YOUR TO 2.5 3 PHARMACY PHARMACY [facility] IPRATROPI UM BROM TO 0.5 MG ADMN SET A7003 YOUR YOUR SM VOL 3 PHARMACY PHARMACY NONFILTR [facility] PNEUMAT NEBULIZR DISPBL PHRM Q0513 YOUR YOUR DISPENSIN 3 PHARMACY PHARMACY G FEE [facility] INHALATIO N RX; PER 30 DAYS PRTBLE E0431 AYLIN VIERA GASEOUS 3 HOME HOME O2 SYS MEDICAL MEDICAL RENT; EQUIPME EQUIPME FLWMTR HUMIDFR&M ASK NEBULIZER E0570 AYLIN VIERA WITH 3 HOME HOME COMPRESSO MEDICAL MEDICAL R EQUIPME EQUIPME O2 CONC 1 E1390 AYLIN VIERA DEL PORT 3 HOME HOME 85%/>02 MEDICAL MEDICAL CONC AT EQUIPME EQUIPME PRSC FLW RATE RADIOLOGI 25623 [place] [facility] C EXAM 3 [facility] CHEST 2 INC INC VIEWS FRONTAL&L ATERAL CONTINUOU E0601 AYLIN VIERA S 3 HOME HOME POSITIVE MEDICAL MEDICAL AIRWAY EQUIPME EQUIPME PRESSURE DEVICE CREATINE 19639 [place] [facility] KINASE MB 3 [facility] FRACTION INC INC ONLY COMPREHEN 45742 V[place] [facility] SIVE 3 [facility] METABOLIC INC INC PANEL 3D 33927 [place] [facility] RENDERING 3 [facility] W/INTERP INC INC & POSTPROCE SS SUPERVISI ON RHYTHM 90823 [place] [facility] ECG 1-3 3 [facility] LEADS INC INC TRACING ONLY W/O I&R ECG 74859 [place] ORDOÑEZ JR ROUTINE 3 [facility] W/LEAST P 12 LDS I&R ONLY BLOOD 51777 [facility] COUNT 3 [facility] COMPLETE INC INC AUTO&[place] [address] [place] [facility] TROPONIN 3 [facility] QUANTITAT INC INC COURTNEY CREATINE 18639 V[place] [facility] KINASE 3 [place] [address] [place] [facility] HEAD/BRAI 3 [facility] N W/O INC INC CONTRAST MATERIAL ECG 43463 [facility] ROUTINE 3 [facility] ECG INC INC W/LEAST 12 LDS TRCG ONLY W/O I&R PRTBLE E0431 AYLIN VIERA GASEOUS 3 HOME [...] PER SESS TO 2 PER DAY C-REACTIV [id number] [facility] E PROTEIN 3 [facility] [employer] [facility] BLOOD 63053 [facility] COUNT 3 [facility] [employer] [employer] [facility] [facility] AUTOMATED COMPREHEN 43347 [facility] SIVE 3 [facility] [employer] PANEL COLLECTIO 50692 [facility] N VENOUS 3 [...] PER SESS TO 2 PER DAY POLYSOM 91370 [facility] 6/>YRS 3 [facility] SLEEP 4/> INC INC ADDL JOSE A ATTND PULM G0424 [place] [facility] REHAB 3 [facility] INCL [...] O2 SYS MEDICAL MEDICAL RENT; EQUIPME EQUIPME FLWDCR HUMIDFR&M ASK BRNCDILAT 28545 [place] RSPSE 3 [facility] SPMTRY INC INC PRE&POST- BRNCDILAT ADMN GAS 95261 [place] [facility] DILUT/WAS 3 [facility] HOUT LUNG INC INC VOL W/WO DISTRIB VENT&V O2 CONC 1 E1390 AYLIN VIERA DEL PORT 3 HOME HOME 85%/>02 MEDICAL MEDICAL CONC AT EQUIPME EQUIPME PRSC FLW RATE IRON 12681 [facility] BINDING 3 Y Y CAPACITY [facility] RADIOLOGI 74728 [facility] C EXAM 3 Y Y CHEST 2 [facility] VIEWS [place]ONTAL&[place] [address] [facility] FOLIC 3 Y Y [facility] COMPREHEN 03405 [facility] SIVE 3 Y Y METABOLIC [facility] PANEL COLLECTIO 59963 [facility] N VENOUS 3 Y Y BLOOD [facility] VENIPUNCT URE ANTINUCLE [address]3872 [facility] LAB HEIDI AR 3 [facility] [place] FLUORESCE 59370 [facility] NT 3 Y Y NONNFCT [facility] AGT ANTB SCREEN EA ANTIBODY CYANOCOBA 04830 [facility] CLARISSE 3 Y Y VITAMIN [facility] B-12 BLOOD 24659 [facility] COUNT 3 Y Y COMPLETE [facility] AUTO&AUTO DIFRNTL WBC PREALBUMI 87695 [facility] N [facility] Y [facility] RHEUMATOI 72986 [facility] D FACTOR 3 Y Y QUANTITAT [facility] COURTNEY STANDARD K0001 AYLIN VIERA WHEELCHAI 3 HOME [...] AT EQUIPME EQUIPME PRSC FLW RATE POLYSOM 47060 [facility] 6/>YRS 3 [facility] SLEEP INC INC W/CPAP 4/> ADDL JOSE A [facility] [address] [facility] 3 MEDICAL JAG DAY SERV MANAGEMEN FOUNDATIO T 30 MIN/< SBSQ 79087 [facility] 3 MEDICAL JAG CARE/DAY SERV 25 FOUNDATIO MINUTES RADEX ABD 00[address] [place] DISANTIS COMPL 3 MEDICAL SIDDHARTHA AQT ABD SERV W/S/E/D FOUNDATIO VIEWS 1 VIEW CH RADEX ABD 11706 [place] JAM COMPL 3 MEDICAL AQT ABD SERV W/S/E/D FOUNDATIO VIEWS 1 VIEW CH INITIAL 21668 [facility] 3 Y OF MAR[place] CARE/DAY [place] [address] [place] [address] [place] ABDOMINAL 3 MEDICAL DEENA REAL [...] CONC AT EQUIPME EQUIPME PRSC FLW RATE WALKER E0143 AYLIN VIERA FOLDING 3 HOME HOME WHEELED MEDICAL MEDICAL ADJUSTABL EQUIPME EQUIPME E/FIXED HEIGHT SEAT E0156 AYLIN VIERA ATTACHMEN 3 HOME HOME T WALKER MEDICAL MEDICAL EQUIPME EQUIPME RADIOLOGI 04439 [facility] [place] KOSTELIC C EXAM 3 RADIOLOGY MONTSERRAT CHEST 2 VIEWS FRONTAL&L ATERAL DUP-SCAN 87090 JERRI JERRI XTR VEINS 3 ESPERANZA ESPERANZA COMPLETE BILATERAL STUDY RADIOLOGI 05653 [facility] [place] NOEL C EXAM 3 RADIOLOGY GODFREY CHEST 2 VIEWS FRONTAL&L ATERAL MRI BRAIN 45881 [place] LUKINS BRAIN 3 MEDICAL TIERRA STEM W/O SERV CONTRAST FOUNDATIO MATERIAL SBSQ 75931 [facility] 3 E CARE CARE/DAY CTR OF 15 THE B MINUTES [facility] [address] [place]LEY INCL 3 MEDICAL OSCAR FLUOR SERV GDNCE DX FOUNDATIO W/CELL WASHG SPX SBSQ 76827 [facility] 3 E CARE CARE/DAY CTR OF 25 THE B MINUTES CLOSED 3324 [facility] BIOPSY OF 3 Y Y [facility] VENOUS 3893 [facility] CATHETERI 3 Y Y [facility] NOT ELSEWHERE CLASSIFIE D ECG 73293 TARAS NEVAREZ CHI ROUTINE 3 MEDICAL ECG SERV W/LEAST FOUNDATIO 12 LDS I&R ONLY ECG 58348 TARAS HU ROUTINE 3 MEDICAL NAN ECG SERV W/LEAST FOUNDATIO 12 LDS I&R ONLY CONTINUOU E0601 AYLIN VIERA S 2 HOME HOME POSITIVE MEDICAL MEDICAL AIRWAY EQUIPME EQUIPME PRESSURE DEVICE STANDARD K0001 AYLIN ABARCARELL WHEELCHAI 2 HOME HOME R MEDICAL MEDICAL EQUIPME EQUIPME THORACOSC 3320 [facility] LUNG 2 Y Y BIOPSY [facility] ECG 74959 TARAS NEVAREZ CHI ROUTINE 2 MEDICAL ECG SERV W/LEAST FOUNDATIO 12 LDS I&R ONLY ECG 00750 TARAS ROSENBERG ROUTINE 2 MEDICAL ECG SERV W/LEAST FOUNDATIO 12 LDS I&R ONLY ECG 19140 TARAS NEVAREZ CHI ROUTINE 2 MEDICAL ECG SERV W/LEAST FOUNDATIO 12 LDS I&R ONLY ECG 50447 TARAS HU ROUTINE 2 MEDICAL NAN ECG SERV W/LEAST FOUNDATIO 12 LDS I&R ONLY CONT 9671 [facility] 2 Y Y [facility] < 96 CONSECUTI VE HOURS INSERTION 9604 [facility] [place] 2 Y Y [facility] EAL TUBE RADIOLOGI 73713 [place] DAWNA C 2 MEDICAL TIERRA EXAMINATI IMAGING ON CHEST ASS SINGLE VIEW FRONTAL RADIOLOGI 02495 [place] DAWNA C 2 MEDICAL TIERRA EXAMINATI IMAGING ON CHEST ASS SINGLE VIEW FRONTAL ADMN SET A7003 YOUR YOUR SM VOL 2 PHARMACY PHARMACY NONFILTR [employer] PNEUMAT NEBULIZR DISPBL ALBUTEROL J7620 YOUR YOUR TO 2.5 2 PHARMACY PHARMACY [employer] IPRATROPI UM BROM TO 0.5 MG PHARM G0333 YOUR YOUR DISPEN 2 PHARMACY PHARMACY [employer] RX; INITIAL 30-DAY SUPPLY ECG 22423 POPPY LOPEZ ROUTINE 2 EMERGENCY VENUS ECG SERVICES W/LEAST 12 LDS I&R ONLY RADIOLOGI 12594 YAZ TONEY C EXAM 2 MEDICAL TIERRA CHEST 2 IMAGING VIEWS ASS FRONTAL&L ATERAL BLOOD 41370 [facility] OCCULT 2 N N PEROXIDAS COMMUNITY COMMUNITY E ACTV HOSPITA HOSPITA QUAL FECES 1-3 SPEC SMR PRIM 51684 [facility] SRC CPLX 2 N N SPEC COMMUNITY COMMUNITY STAIN HOSPITA HOSPITA OVA&CHAD ITS OVA&CHAD 05530 [facility] ITES 2 N N DIRECT COMMUNITY COMMUNITY SMEARS HOSPITA HOSPITA CONCENTRA TION & ID SMR PRIM 14872 [facility] SRC 2 N N GRAM/GIEM COMMUNITY COMMUNITY SA STAIN HOSPITA HOSPITA BCT FUNGI/LEONIDES L BLOOD 97185 CULBERTSO CULBERTSO OCCULT 2 N KALYAN N KALYAN PEROXIDAS E ACTV QUAL FECES 1 DETER COMPREHEN 58939 LAB HEIDI LAB HEIDI SIVE 2 AMERIC AMERIC METABOLIC HOLDING HOLDING PANEL COLLECTIO 76823 LAB HEIDI LAB HEIDI N VENOUS 2 AMERIC AMERIC BLOOD HOLDING HOLDING VENIPUNCT URE C-REACTIV 49824 LAB HEIDI LAB HEIDI E PROTEIN 2 AMERIC AMERIC HOLDING HOLDING BLOOD 02719 LAB HEIDI LAB HEIDI COUNT 2 AMERIC AMERIC COMPLETE HOLDING HOLDING AUTOMATED BLOOD 37858 LAB HEIDI LAB HEIDI COUNT 1 AMERIC AMERIC COMPLETE HOLDING HOLDING AUTOMATED C-REACTIV 81700 LAB HEIDI LAB HEIDI E PROTEIN 1 AMERIC AMERIC HOLDING HOLDING COLLECTIO 30910 LAB HEIDI LAB HEIDI N VENOUS 1 AMERIC AMERIC BLOOD HOLDING HOLDING VENIPUNCT URE COMPREHEN 18929 LAB HEIDI LAB HEIDI SIVE 1 AMERIC AMERIC METABOLIC HOLDING HOLDING PANEL RADEX 83835 [facility] ANKLE 1 Y Y [facility]PLETE [facility]PITAL HOSPITAL MINIMUM 3 VIEWS WALKING L4360 [email or web address] BOOT 1 PNEUMATC &/ VACUUM PREFAB CUSTM FIT LIPID 89267 [facility] OF LAB[facility] OF PANEL 1 [employer] TRANSFERA 46856 [facility] SE 1 [employer] ASPARTATE AMINO AST SGOT COLLECTIO 95133 [facility] N VENOUS 1 [place] INC [place] INC BLOOD VENIPUNCT URE APPLICATI 51651 [place] TARAS ON SHORT 1 MEDICAL MEDICAL LEG CAST SERV SERV WALKING/A FOUNDATIO FOUNDATIO MBULATORY CAST Q4038 TARAS MARTINEZ SUPPLIES 1 MEDICAL KAMALA SHORT LEG SERV CAST FOUNDATIO ADULT FIBERGLAS S RADIOLOGI 11407 [facility] C 1 Y [facility]OT 2 VIEWS CAST Q4038 TARAS MARTINEZ SUPPLIES 1 MEDICAL KAMALA SHORT LEG SERV CAST FOUNDATIO ADULT FIBERGLAS S APPLICATI 45982 [place] TARAS ON SHORT 1 MEDICAL MEDICAL LEG CAST SERV SERV BELOW FOUNDATIO FOUNDATIO KNEE-TOE PHYSICAL 85540 [facility] THERAPY 0 Y Y EVALUATIO [facility] G0378 [facility] OBSERVATI 0 Y Y ON HOSPITAL HOSPITAL SERVICE PER HOUR BONE 79825 [facility] GRAFT ANY 0 Y Y [facility] HOSPITAL AREA MAJOR/LAR GE ARTHRODES 35194 [facility] IS 0 Y Y [facility] [address] [place] MADELAINECOTT GUIDANCE 0 MEDICAL JUS NEEDLE SERV PLACEMENT FOUNDATIO IMG S&I INJECTION 33510 [place] WAINSCOTT 0 MEDICAL JUS ANESTHETI SERV C AGENT FOUNDATIO SCIATIC NRV SINGLE INJECTION 82200 [place] OHINSCOTT 0 MEDICAL JUS ANESTHETI SERV C AGENT FOUNDATIO FEMORAL NERVE SINGLE FLUOROSCO 47923 [facility] PY SPX >1 0 Y Y [facility] PHYS/QHP TIME ANESTHESI 18746 [place] GERALD A ON BONY 0 MEDICAL JUS PELVIS SERV FOUNDATIO SMR PRIM 21180 LAB HEIDI LAB HEIDI SRC 0 AMERIC AMERIC GRAM/GIEM HOLDING HOLDING SA STAIN BCT FUNGI/LEONIDES L CUL BACT 83711 LAB HEIDI LAB HEIDI XCPT 0 AMERIC AMERIC URINE HOLDING HOLDING BLOOD/STO OL AEROBIC ISOL CULTURE 68807 LAB HEIDI LAB HEIDI BACTERIAL 0 AMERIC AMERIC ANY HOLDING HOLDING SOURCE ANAEROBIC ISO&ID ECG 00116 [place] ROUTINE 0 [facility] ECG INC INC W/LEAST 12 LDS TRCG ONLY W/O I&R CREATINE 10314 [place] KINASE 0 [facility] TOTAL INC INC BASIC 84128 [place] METABOLIC 0 [facility] PANEL INC INC CALCIUM TOTAL RADIOLOGI 66953 [place] DAWNA C 0 MEDICAL TIERRA EXAMINATI IMAGING ON [place] [address] [place] TROPONIN 0 [facility] QUANTITAT INC INC COURTNEY BLOOD 38120 [place] COUNT 0 [facility] COMPLETE INC INC AUTO&AUTO DIFRNTL WBC CREATINE 03128 [place]ASULE[place] COLEMAN KINASE MB 0 [facility] FRACTION INC INC ONLY THER 13333 [place] PROPH/DX 0 [facility] NJX IV INC INC PUSH SINGLE/1S T SBST/DRUG ECG 16524 POPPY MORRISSEY ROUTINE 0 EMERGENCY III TRISTA ECG SERVICES W/LEAST 12 LDS I&R ONLY PRESSURIZ 58199 [place] ED/NONPRE 0 [facility] SSURIZED INC INC INHALATIO N TREATMENT CT LOWER 01573 [place] EXTREMITY 0 [facility] W/O INC INC CONTRAST MATERIAL DUP-SCAN 74576 [place] CO[facility] XTR VEINS 0 [facility] INC INC UNILATERA L/LIMITED STUDY 3D 36210 [place] RENDERING 0 [facility] INC INC W/INTERP& POSTPROC DIFF WORK STATION INJECTION J1040 CULBERTSO CULBERTSO 9 N, GEREMIAS DOUGHERTY METHYLPRE DNISOLONE ACETATE 80 MG BLOOD 56614 CULODILONO CULBERTSO OCCULT 9 N, GEREMIAS DOUGHERTY PEROXIDAS E ACTV QUAL FECES 1 DETER MYOCRD 81010 [facility] PRFUJ STD 9 N N EJEC FXJ [facility] CV STRS 31868 DIMITRIO CULBERTSO TST 9 N, GEREMIAS DOUGHERTY XERS&/OR RX CONT ECG I&R ONLY CV STRS 24974 MONICA ANDERSON TST 9 N, GEREMIAS DOUGHERTY XERS&/OR RX CONT ECG W/O I&R CV STRS 83070 [facility] TST 9 N N XERS&/OR COMMUNITY COMMUNITY RX CONT [facility] ECG TRCG ONLY TECHNETIU A9500 [facility] TC-99M 9 N N SESTAMIBI [facility] DX PER HOSPITAL HOSPITAL STUDY DOSE MYOCRD 12563 [facility] PRFUJ STD 9 N N [facility] QUAL/RENEE STD MYOCRD 61640 [facility] IMG 9 N N TOMOG [facility] SPECT BOOK SEWER [facility] STD COLLECTIO 29143 [facility] N VENOUS 9 [facility] [place] [address] [facility] IRON 9 [facility] IRON 53787 [facility] BINDING 9 [facility] CAPACITY COLLECTIO 56002 [facility] N VENOUS 9 [facility] BLOOD VENIPUNCT URE BLOOD 46652 [facility] COUNT 9 [facility] COMPLETE AUTO&AUTO DIFRNTL WBC INFLUENZA G9141 MONICA ANDERSON A H1N1 9 N, GEREMIAS Bautista, GEREMIAS IMMUNIZAT ION ADMINISTR ATION PWR E2365 ALLIED ALLIED WHLCHAIR 9 HOME HOME ACSS U-1 MEDICAL, MEDICAL, SEALED INC. INC. LEAD ACID BATTRY EA REPR/SRVC K0739 ALLIED ALLIED DME NOT 9 HOME HOME O2 RQR MEDICAL, MEDICAL, TECH INC. INC. CMPNT PER 15 MINS CULTURE 58846 LAB HEIDI LAB HEIDI BACTERIAL 9 AMERIC AMERIC ANY HOLDING HOLDING SOURCE ANAEROBIC ISO&ID CUL BACT 64335 LAB HE[facility]I LAB HEIDI XCPT 9 AMERIC AMERIC URINE HOLDING HOLDING BLOOD/STO OL AEROBIC ISOL SUSCEPTIB 29817 LAB HE[facility]I LAB HEIDI LTY STDY 9 AMERIC AMERIC ANTIMICRB HOLDING HOLDING IAL MICRO/AGA R DILUTJ SMR PRIM 48253 LAB HEIDI LAB HEIDI SRC 9 AMERIC AMERIC GRAM/GIEM HOLDING HOLDING SA STAIN BCT FUNGI/LEONIDES L COLLECTIO 00793 [facility] N VENOUS 9 [facility] [place] [address] [facility] PROSTATE 9 [facility] SPECIFIC ANTIGEN TOTAL LIPID 16409 [facility] PANEL 9 [facility] COMPREHEN 87349 [facility] SIVE 9 [facility] METABOLIC PANEL INJECTION J2270 [facility] MORPHINE 9 Y [facility] UP TO 10 MG INJECTION J0690 [facility] 9 Y Y CEFAZOLIN [facility] SODIUM 500 MG REMOVAL 22495 [facility] IMPLANT 9 Y Y [facility] INJE[facility] J2175 [facility] 9 Y Y MEPERIDIN [facility] E HCL PER 100 MG RINGERS J7120 [facility] LACTATE 9 Y Y INFUSION [facility] UP TO 1000 CC CUL BACT 96498 [facility] XCPT 9 Y Y URINE HOSPITAL [facility] BLOOD/STO [place] L[place]EL I [address] [facility] SURG 9 Y Y PATHOLOGY [facility] GROSS EXAMINATI ON ONLY INJECTION J3010 [facility] FENTANYL 9 Y Y CITRATE [facility] 0.1 MG SMR PRIM 90808 [facility] SRC 9 Y Y GRAM/GIEM HOSPITAL HOSPITAL SA STAIN BCT FUNGI/LEONIDES L FLUOROSCO 52473 [facility] PY SPX >1 9 Y [facility] PHYS/QHP TIME BASIC 75892 [facility] METABOLIC 9 Y Y PANEL [facility]OSPITAL HOSPITAL CALCIUM TOTAL COLLECTIO 04477 [facility] N VENOUS 9 Y Y BLOOD HOSPITAL HOSPITAL VENIPUNCT URE BLOOD 43984 [facility] COUNT 9 Y Y COMPLETE [facility] AUTOMATED ECG 95721 [facility] ROUTINE 9 Y Y ECG [facility] W/LEAST 12 LDS TRCG ONLY W/O I&R RADEX 38654 [facility] FOOT 9 Y Y COMPLETE [facility] MINIMUM 3 VIEWS ECG 69079 [place] RENA, ROUTINE 9 MEDICAL MARIXA G ECG SERV W/LEAST FOUNDATIO 12 LDS I&R ONLY CELL 19004 [facility] COUNT 9 Y Y MISC BODY [facility] FLUIDS W/DIFFERE NTIAL COUNT CUL BACT 27632 [facility] XCPT 9 Y Y URINE HOSPITAL [facility] BLOOD/STO OL AEROBIC ISOL COLLECTIO 91324 [facility] N VENOUS 9 Y Y BLOOD [facility] VENIPUNCT URE ARTHROCEN 15084 [facility] MAKSIM TESIS 9 LTH II, NESHA ASPIR&/IN ORTHOPAED A J MAJOR IC JT/BURSA SURGEONS W/O US PSC SMR PRIM 68562 [facility] SRC 9 Y Y GRAM/GIEM [facility] SA STAIN BCT FUNGI/LEONIDES L INJ J0702 [facility] MAKSIM BETAMETHA 9 LTH II, NESHA SONE ORTHOPAED A ACETATE & IC SURGEONS PHOSPHATE PSC 3 MG PWR E2365 ALLIED ALLIED WHLCHAIR 9 HOME HOME ACSS U-1 MEDICAL, MEDICAL, SEALED INC. INC. LEAD ACID BATTRY EA REP/NONRO E1340 ALLIED ALLIED UTINE 9 HOME HOME SRVC DME MEDICAL, MEDICAL, RQR SKL INC. INC. TECH LABR-15 MIN SBSQ 73120 [facility] 8 EMERGENCY N, CARE/DAY SERVICES TADARRO 25 MINUTES ASSOCIATE S ANESTH 43446 KRANTHI CARDOZO 8 [facility] REEMA Harvey ANESTHESI ARTHROSCO A PSC PIC PROC KNEE JOINT INITIAL 81674 [facility] INPATIENT 8 EMERGENCY N, CONSULT SERVICES TADARRO NEW/ESTAB PT 110 ASSOCIATE MIN S LEVEL III 57144 [place] ANN, SURG 8 MEDICAL TIM E PATHOLOGY SERV FOUNDATIO GROSS&VENUS ROSCOPIC EXAM COLONOSCO 55276 [facility], PY FLX DX 8 [place] RICHY G W/COLLJ GASTROENT SPEC WHEN PFRMD ANES 38084 [place] HIRO, LOWER 8 ANESTHESI JENNIFER Vieira INTESTINE A GROUP PSC ENDOSCOPY DISTAL DUODENUM CUL BACT 66105 [facility] XCPT 8 Y Y URINE HOSPITAL [facility] BLOOD/STO OL AEROBIC ISOL SMR PRIM 67544 [facility] SRC 8 Y Y GRAM/GIEM HOSPITAL [facility] SA STAIN BCT FUNGI/LEONIDES L CELL 66763 [facility] COUNT 8 Y Y MISC BODY [facility] FLUIDS W/DIFFERE NTIAL COUNT PHRM Q0514 PULMO PULMO DISPENSIN 8 DOSE [...] DOSE NONFILTR PHARMACY PHARMACY PNEUMATIC NEBULIZER DISPBL PHR Q0513 PULMO PULMO DISPENSIN 8 DOSE DOSE G FEE PHARMACY PHARMACY INHALATIO N RX; PER 30 DAYS DUP-SCAN 85735 [facility] LXTR 8 N N ART/ARTL [facility] COMPL BI STUDY PHRM Q0513 PULMO [...] NONFILTR PHARMACY PHARMACY PNEUMATIC NEBULIZER DISPBL RADIOLOGI 99890 MAKSIM MAKSIM C EXAM 8 II, NESHA II, NESHA KNEE A A COMPLETE 4/MORE VIEWS RADIOLOGI 45043 MAKSIM MAKSIM C 8 II, NESHA II, NESHA EXAMINATI A A ON KNEE 1/2 VIEWS ALBUTEROL J7620 PULMO PULMO TO 2.5 8 DOSE DOSE MG & PHARMACY PHARMACY IPRATROPI UM BROM TO 0.5 MG PHRM Q0513 PULMO PULMO DISPENSIN 8 DOSE DOSE G FEE PHARMACY PHARMACY INHALATIO N RX; PER 30 DAYS Encounters Encounter Start End Date Code Location Performer Type Date [facility] - 3 3 Y [facility] [place] - 3 3 [facility] [place] [facility] 3 [facility] EM[facility] 65680 TARAS SALAZAR DEPT 3 3 MEDICAL JORGE VISIT SERV HIGH FOUNDATIO SEVERITY& THREAT [facility]ERS[facility] - 3 3 Y [facility] [place] - 3 3 [facility] OFF[facility] 63658 ARTHRITIS ALBERTO [facility] 3 3 CENTER T VISIT OF 25 [facility]ERS[facility] - 3 3 Y [facility] EMERGENC[facility] 46562 POPPY SANTA DEPT 3 3 EMERGENCY VISIT SERVICES HIGH SEVERITY& THREAT [facility] [place] - 3 3 [facility] [place] [facility] 3 [facility] 24476 Avtar LAZCANO OUTPATIEN 3 3 FILEMON SHAH T VISIT [facility] 15 MINUTES EMERGENCY 70509 [place] 3 3 [facility] 2[facility] T VISIT HIGH/URGE NT SEVERITY EMERGENCY 88703 POPPY SANTA DEPT 3 3 EMERGENCY VISIT SERVICES HIGH SEVERITY& THREAT [facility] [place] - 3 3 [facility] OFF[facility] 66750 ARTHRITIS ALBERTO RIT OUTPATIEN 3 3 CENTER T VISIT OF 25 [facility] OFFICE 82557 Avtar LAZCANO OUTPATILENNY 3 3 FILEMON SHAH T VISIT [facility] 15 [facility] [place] - 3 3 [facility] OFFICE 76282 ARTHRITIS ALBERTO RIT OUTPATIEN 3 3 CENTER T VISIT OF 10 [facility] [place] - 3 3 [facility] [place] [facility] 3 3 [facility] OFF[facility] 96791 ARTHRITIS ALBERTO RIT OUTPATIEN 3 3 CENTER T VISIT OF 25 [facility] [place] - 3 3 [facility] OFFICE 39724 T[facility]AS [facility]PSON [facility] 3 MEDICAL JAM T VISIT SERV [address] [facility] - 3 Y [facility] [place] - 3 3 [facility] [place] [address] 3 Y INPATIENT [facility] EMERGENCY 73935 TARAS LANTIGUA DEPT 3 3 MEDICAL TOUCHER UP VISIT SERV HIGH FOUNDATIO SEVERITY& THREAT [facility] OFFICE 44062 T[facility]AS GATES [facility] 3 3 MEDICAL YATACO T VISIT SERV ANG 25 [facility] UNIVERSIT - 2 3 Y INPATIENT HOSPITAL EMERGENCY 27666 POPPY LOPEZ DEPT 2 2 EMERGENCY VENUS VISIT SERVICES HIGH SEVERITY& THREAT [facility] EMERGENCY 82590 POPPY SANTA DEPT 2 2 EMERGENCY VISIT SERVICES HIGH SEVERITY& THREAT [facility] [place] [address] 2 N [facility] HOSPITA OFFICE 96128 CULBERTSO CULBERTSO OUTPATIEN 2 2 N KALYAN N KALYAN T VISIT 15 MINUTES OFFICE 62808 CULBERTSO CULBERTSO OUTPATIEN 1 1 N KALYAN N KALYAN T VISIT 15 MINUTES HOSPITAL UNIVERSIT - 1 1 Y [facility] UNIVERSIT - 1 1 Y [facility] - 0 0 Y [facility] T OFFICE 71521 CULBERTSO CULBERTSO OUTPATIEN 0 0 N KALYAN N KALYAN T VISIT 15 MINUTES OFFICE 08758 TARAS MARTINEZ OUTPATIEN 0 0 MEDICAL KAMALA T VISIT SERV 15 FOUNDATIO MINUTES EMERGENCY 27186 [place] 0 0 [facility] DEPARTMEN INC T VISIT MODERATE SEVERITY EMERGENCY 62748 POPPY MORRISSEY DEPT 0 0 EMERGENCY III TRISTA VISIT SERVICES HIGH SEVERITY& THREAT [facility] [place] - 0 0 [facility] OUTPATIEN INC T OFFICE 99724 TARAS MARTINEZ OUTPATIEN 0 0 MEDICAL KAMALA T VISIT SERV 15 FOUNDATIO MINUTES EMERGENCY 93126 [place] 0 0 [facility] DEPARTMEN INC T VISIT LOW/MODER SEVERITY [facility] [place] - 0 0 [facility] OUTPATIEN INC T OFFICE 34779 CULBERTSO CULBERTSO OUTPATIEN 9 9 N, GEREMIAS DOUGHERTY VISIT 15 MINUTES [facility] 48507 CULBERTSO CULBERTSO OUTPATIEN 9 9 N, GEREMIAS DOUGHERTY VISIT 15 MINUTES OFFICE 87530 CULBERTSO CULBERTSO OUTPATIEN 9 9 N, GEREMIAS DOUGHERTY VISIT 25 MINUTES OFFICE 77276 CULBERTSO CULBERTSO OUTPATIEN 9 9 NGEREMIAS ROBERT T VISIT 15 MINUTES HOSPITAL [facility] - 9 9 Y [facility] T OFFICE 94900 KAM ENCARNACION 9 9 MEDICAL TONO Marley ION SERV NEW/ESTAB FOUNDATIO PATIENT 40 MIN [facility] - 9 9 Y [facility] T OFFICE 12630 [facility] 9 9 [facility] NESHA CLEMONS T VISIT ORTHOPAED A 15 IC MINUTES SURGEONS [facility] - 9 9 Y [facility] - 8 8 Y [facility] T OFFICE 91628 CULBERTSO [facility] 8 8 NGEREMIAS ROBERT T VISIT 15 MINUTES [facility] 8 8 N [facility] 94525 [facility] 8 8 IINESHA II, GLEN T VISIT A A 15 MINUTES
--- OUTSIDE RECORDS SUMMARY | 2016-10-07 14:28 | External Medical Summary Rpt ---
Author Author , Organization [employer] Address Unknown Phone Unavailable Care Team Providers Care Pharmacy Graduate Intern Name Role Phone A Candice COLBRET MD PSC, A Unavailable Unavailable Candice COLBERT [...] SO[facility]ILA [facility] Unavailable Unavailable SERVICE, [facility] Unavailable Unavailable SERVICE, [facility] CAMILLE KET, CAMILLE KET Unavailable Unavailable GRZEGORZ CLASS B DRIVER, GRZEGORZ Unavailable Unavailable CLASS B DRIVER TITI JAG, TITI Unavailable Unavailable JAG [facility], Unavailable Unavailable [facility] COZ YATACO ANG, COZ Unavailable Unavailable YATACO ANG DAWNA TIERRA, Unavailable Unavailable DAWNA TIERRA LAVONNE KALYAN, Unavailable Unavailable LAVONNE KALYAN LAVONNE KALYAN, Unavailable Unavailable LAVONNE KALYAN LAVONNE, GEREMIAS, Unavailable Unavailable LAVONNE, GEREMIAS DISANTIS SIDDHARTHA, Unavailable Unavailable DISANTIS SIDDHARTHA [facility], [facility] Unavailable Unavailable JERRI ESPERANZA, JERRI Unavailable Unavailable ESPREANZA JERRI ESPERANZA, JERRI Unavailable Unavailable ESPERANZA ALBERTO RIT, ALBERTO RIT Unavailable Unavailable HU NAN, HU Unavailable Unavailable NAN JESSICA VENUS, JESSICA Unavailable Unavailable VENUS [facility] Unavailable Unavailable HOSPITA, [facility] Unavailable [facility]available [facility], [facility] CHR, [facility] Unavailable [facility]available [facility] Unavailable Unavailable INC, [facility] Unavailable Unavailable HOSPITAL P, [facility] P DUBOIS KAMALA, DUBOIS KAMALA Unavailable [...] HOLDINGS, [facility], Unavailable Unavailable [facility] JUAN KAMALA, Unavailable Unavailable JUAN KAMALA TONO MARTINEZ, Unavailable Unavailable TONO MARTINEZ HAYWOOD MARION, HAYWOOD Unavailable Unavailable MARION JESICA JAM, JESICA JAM Unavailable Unavailable TIAGO JR DWI, TIAGO Unavailable Unavailable JR DWI LUKINS TIERRA, LUKINS Unavailable Unavailable TIERRA [facility] Unavailable Unavailable SERVICES, [facility] MAKSIM II, NESHA A, Unavailable [...] SADIE GIRARD PRE, SHAJI Unavailable Unavailable PRE [facility], Unavailable [facility] Unavailable [facility], [facility] INTER GERALD MINA, Unavailable Unavailable ALEJO STRICKLAND, [...] SERV PULMONARY FOUNDATIO FIBROSIS 7245 UNSPECIFIED 03-19-2013 [facility] 57366 OTHER 03-19-2013 [facility] [place] [address] OBSTRUCTIVE 03-10-2013 [facility] APNEA MEDICAL EQUIPME 34487 OTHER 03-07-2013 [place] DISEASES OF [facility] LUNG NOT INC ELSEWHERE CLASSIFIED 7242 LUMBAGO 03-06-2013 [facility] INC V571 OTHER 03-06-2013 [facility] THERAPY INC 31750 OTHER 03-01-2013 [place] [facility] CONDITIONS SERV OF BRAIN FOUNDATIO 7140 RHEUMATOID 03-01-2013 [place] [facility] ARTHRITIS SERV [facility] 7840 HEADACHE 03-01-2013 [place] [facility] 60672 DIARRHEA 03-01-2013 [place] [facility] 7930 NONSPECIFIC 03-01-2013 [facility] ABN FNDNG SERV RAD & OTH FOUNDATIO EXM SKULL & HEAD E8889 UNSPECIFIED 03-01-2013 [place] [facility] FALL SERV [facility] 37771 OTHER 02-28-2013 [place] [facility] CHRONIC SERV PAIN FOUNDAT[facility] 4019 UNSPECIFIED 02-28-2013 [place] [facility] ESSENTIAL SERV HYPERTENSIO FOUNDATIO N 79814 FEVER 02-28-2013 [place] [facility] UNSPECIFIED SERV F[facility]AT[place] 38893 OTHER 02-28-2013 [place] [facility] NONSPECIFIC SERV ABNORMAL FOUNDATIO FINDING OF LUNG FIELD 412 OLD 02-27-2013 [facility] INFARCTION 76426 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 4829 UNSPECIFIED 02-27-2013 [facility] PNEUMONIA SERVICE 5184 UNSPECIFIED 02-27-2013 [facility] ACUTE SERV EDEMA OF FOUNDATIO LUNG 5849 ACUTE 02-27-2013 [facility] FAILURE UNSPECIFIED 80743 RHEUMATOID 02-27-2013 [facility] V4361 SHOULDER 02-27-2013 [facility] SERV REPLACEMENT FOUNDATIO BY OTHER MEANS V462 DEPENDENCE 02-27-2013 [facility] FOR [facility]PPLE[facility] L OXYGEN 11446 OBSTRUCTIVE 02-26-2013 [facility] P WITH EXACERBATIO N V5869 LONG-TERM 02-20-2013 [facility] (CURRENT) CENTER OF USE OF LEXINGTO OTHER MEDICATIONS V6751 F/U EXAM 02-20-2013 [facility] FOLLOW CMPL [place] [facility] W/HIGH-RISK MED NEC 25379 COR 02-12-2013 [facility] UNSPEC TYPE VESSEL JICARILLA APACHE NATION/RAUL T 4940 BRONCHIECTA 01-31-2013 [place] [facility] SIS WITHOUT SERV ACUTE FOUNDATIO EXACERBATIO N 63668 IDIOPATHIC 01-31-2013 [facility] 7856 ENLARGEMENT 01-31-2013 [place] [facility] OF LYMPH SERV NODES FOUNDATIO 21763 SHORTNESS 01-31-2013 [place] [facility] OF BREATH SERV FOUNDATIO 50172 OTHER 01-31-2013 [facility] RESPIRATORY AMBULANCE SERVICE COMPLICATIO NS 0529 VARICELLA 01-06-2013 A Candice PINZON MD PSC MENTION OF COMPLICATIO N 7862 COUGH 01-06-2013 A Candice COLBERT MD PSC 4660 ACUTE 11-06-2012 A Candice COLBERT BRONCHITIS PSC V5812 ENCOUNTER 09-25-2012 [facility] C[facility] OF ANTINEOPLAS LEXINGTO TIC IMMUNOTHERA PY 2859 UNSPECIFIED 08-31-2012 [facility] 4841 PNEUMONIA 08-31-2012 [place] [facility] IN SERV CYTOMEGALIC FOUNDATIO INCLUSION DISEASE 5168 OTH SPEC 08-31-2012 [place] [facility] ALVEOL&DEONNA SERV ETOALVEOL FOUNDATIO PNEUMONOPAT HIES 29068 NAUSEA WITH 08-02-2012 [place] [facility] VOMITING SERV F[facility] V1209 PERSONAL HX 08-02-2012 [facility] OTH SERV INFECTIOUS& FOUNDATIO PARASITIC DISEASE 2724 OTHER AND 07-31-2012 [facility] HYPERLIPIDE ALEKSANDAR 5589 OTH&UNSPEC 07-31-2012 [place] [facility] NONINFECTIO SERV US FOUNDATIO GASTROENTER ITIS&COLITI S 33024 VOMITING 07-31-2012 [facility] INTER 81937 ABDOMINAL 07-31-2012 [place] [facility] PAIN, SERV EPIGASTRIC FOUNDATIO 95540 SYSTEMIC 07-31-2012 [facility] Y RESPONSE SYNDROME UNSPEC V1269 PERSONAL 07-31-2012 [place] [facility] HISTORY SERV OTHER FOUNDATIO DISEASES RESPIRATORY SYS 514 PULMONARY 07-03-2012 [facility] [place] [facility] AND HYPOSTASIS 7295 PAIN IN 07-03-2012 JERRI ESPERANZA SOFT TISSUES OF LIMB 7823 EDEMA 07-03-2012 JERRI ESPERANZA 5119 UNSPECIFIED 07-01-2012 [facility] [place] PLEURAL [facility] EFFUSION 80888 OTHER 06-20-2012 [place] [facility] DISEASES OF SERV NASAL FOUNDATIO CAVITY AND SINUSES 5121 IATROGENIC 06-16-2012 [place] [facility] PNEUMOTHROA SERV X FOUNDATIO 77082 ACUTE AND 06-16-2012 [place] [facility] CHRONIC SERV RESPIRATORY FOUNDATIO FAILURE 11209 SEPTIC 06-16-2012 [place] [facility] SHOCK SERV FOUNDATIO 0785 CYTOMEGALOV 06-15-2012 [facility] DISEASE [facility] B 22524 CHEST PAIN 06-15-2012 P[facility]IVE UNSPECIFIED CARE CTR OF THE B 7850 UNSPECIFIED 06-11-2012 [place] [facility] SERV TACHYCARDIA FOUNDATIO 4279 UNSPECIFIED 05-17-2012 [place] [facility] CARDIAC SERV DYSRHYTHMIA FOUNDATIO 31860 ACUTE 05-17-2012 [place] [facility] RESPIRATORY SERV FAILURE FOUNDATIO 63555 OTHER 04-24-2012 [facility] SEPTICEMIA 1124 CANDIDIASIS 04-24-2012 [facility] 5070 PNEUMONITIS 04-24-2012 [facility] INHALATION OF FOOD OR VOMITUS 5100 EMPYEMA 04-24-2012 [facility] FISTULA 5183 PULMONARY 04-22-2012 [facility] A IMAGING ASS 66620 REFLUX 08-03-2011 LAVONNE ESOPHAGITIS KALYAN 18636 OTHER 08-03-2011 [facility] SYMPTOMS KALYAN INVOLVING DIGESTIVE SYSTEM OTHER 490 BRONCHITIS 07-13-2010 LAVONNE NOT KALYAN SPECIFIED ACUTE OR CHRONIC 91878 ASTHMA, 07-13-2010 LAVONNE UNSPECIFIED KALYAN , UNSPECIFIED STATUS 81635 PAIN IN 07-08-2010 [facility] JOINT, [facility] ANKLE AND FOOT 47377 DISORDER OF 07-08-2010 [facility] BONE AND SERV CARTILAGE FOUNDATIO UNSPECIFIED V454 ARTHRODESIS 07-08-2010 [facility] STATUS SERV F[facility]AT[facility] V5489 OTHER 07-08-2010 [facility] AFTERCARE V5409 OTH 06-17-2010 [facility] AFTERCARE SERV INVOLVING FOUNDATIO INTERNAL FIXATION DEVICE V6700 FOLLOW-UP 06-01-2010 [facility] EXAMINATION SERV FOLLOWING FOUNDATIO UNSPEC SURGERY 82984 PRIMARY 05-12-2010 [facility] LOCALIZED SERV OSTEOARTHRO FOUNDATIO SIS ANKLE AND FOOT 95724 PAIN IN 05-12-2010 [place] [facility] JOINT, SERV LOWER LEG FOUNDATIO V0481 NEED 05-12-2010 [facility] VACCINATION &INOCULATIO N FLU V5849 OTHER 05-12-2010 [place] [facility] SPECIFIED SERV AFTERCARE FOUNDATIO FOLLOWING SURGERY 4659 ACUTE URIS 04-17-2010 LAVONNE OF KALYAN UNSPECIFIED SITE 74719 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 [facility] RHEUMATISM SERV ANKLE AND FOUNDATIO FOOT 37839 PAIN IN 04-02-2010 LAB [facility] JOINT, [facility] [employer] [facility] 92506 OBST 03-12-2010 [facility] P W/ACUTE BRONCHITIS 50820 PAINFUL 03-12-2010 [facility] 50877 UNSPECIFIED 05-20-2009 GEREMIAS BANERJEE ARTHROPATHY SITE UNSPECIFIED 4011 ESSENTIAL 05-09-2009 [facility] N, BENIGN PSC 64003 OTHER CHEST 05-09-2009 L[facility] PAIN GEREMIAS V7651 SPECIAL 05-09-2009 [facility] SCREENING GEREMIAS FOR MALIGNANT NEOPLASMS COLON 7808 GENERALIZED 05-05-2009 GEREMIAS BANERJEE HYPERHIDROS IS 5960 BLADDER 03-18-2009 [facility] [place] INC OBSTRUCTION 2720 PURE 03-17-2009 [facility] HYPERCHOLES GEREMIAS TEROLEMIA 81697 ESOPHAGEAL 03-17-2009 L[facility] REFLUX GEREMIAS 77587 PRIMARY 03-17-2009 LAVONNE LOCALIZED GEREMIAS OSTEOARTHRO SIS OTH SPEC SITES 47184 [facility] 11-26-2008 [facility] INT ORTHOPEDIC DEVC IMPL&GFT 46038 OT COMPS 11-26-2008 [place] [facility] DUE OTH SERV INTRL FOUNDATIO ORTHOPED DEVICE IMPL&GFT 7271 BUNION 11-11-2008 [facility] 31999 NONSPECIFIC 11-11-2008 [facility] ELECTROCARD IOGRAM V4589 OTHER 11-11-2008 [facility] L STATUS OTHER 96133 EFFUSION OF 09-19-2008 [facility] LOWER [facility]G H JOINT ORTHOPAEDIC SURGEONS PSC 32198 VILLONODULA 09-19-2008 [facility] R H SYNOVITIS, ORTHOPAEDIC LOWER LEG SURGEONS PSC 5185 PULMONARY 05-16-2008 [facility]LLOW [facility] SURGERY 46106 UNSPECIFIED 05-15-2008 [place] [facility] [place] [address] EXTRINSIC 11-02-2007 PUL[facility] DOSE ASTHMA, PHARMACY UNSPECIFIED 95792 OSTEOARTHRO 07-13-2007 MAKSIM II, SIS UNSPEC NESHA A WHETHER GEN/LOC ANK&FOOT 87784 TENOSYNOVIT 07-13-2007 MAKSIM II, IS OF FOOT NESHA A AND ANKLE Procedures Procedure DOS Code Location Performer Comment PRTBLE E0431 AYLIN AYLIN GASEOUS 4 HOME HOME O2 SYS MEDICAL MEDICAL RENT; EQUIPME EQUIPME FLWMTR HUMIDFR&M ASK O2 CONC 1 E1390 AYLIN VIERA DEL PORT 4 HOME HOME 85%/>02 MEDICAL MEDICAL CONC AT EQUIPME EQUIPME PRSC FLW RATE PULMONARY 88388 [facility] STRESS 3 Y Y TESTING [facility] SPMTRY 28118 [place] B[place] W/VC 3 MEDICAL NUVIA EXPIRATOR [...] AT EQUIPME EQUIPME PRS FLW RATE THERAPEUT 19238 [place] IC PX 1/> 3 [facility] AREAS INC INC EACH 15 MIN EXERCISES E-STIM G0283 [place] [facility] 1/> AREAS 3 [facility]OS[facility] OTH THAN INC INC WND CARE PART TX PLAN E-STIM G0283 [place] [facility] 1/> AREAS 3 [facility] MEM [facility]OSP OTH THAN INC INC WND CARE PART TX PLAN THERAPEUT 77863 [place] [facility] IC PX 1/> 3 [facility] AREAS INC INC EACH 15 MIN EXERCISES APPLICATI 15953 [place] ON 3 [facility] MODALITY INC INC 1/> AREAS HOT/COLD PACKS CONTINUOU E0601 AYLIN VIERA S 3 HOME HOME POSITIVE MEDICAL MEDICAL AIRWAY EQUIPME EQUIPME PRESSURE DEVICE THERAPEUT 24396 [place] PX 1/> 3 [facility]OS[facility]OS[facility] AREAS INC INC EACH 15 MIN EXERCISES E-STIM G0283 [place] [facility] 1/> AREAS 3 [facility]OS[facility] OTH THAN INC INC WND CARE PART TX PLAN SPUTUM 59363 [place] OBTAINING 3 [facility] SPEC INC INC AEROSOL INDUCED TX SPX CUL BACT 76751 [place] [facility] XCPT 3 [facility] URINE INC INC BLOOD/STO OL AEROBIC ISOL SMR PRIM 47330 [place] SRC 3 [facility] GRAM/GIEM INC INC SA STAIN BCT FUNGI/LEONIDES L E-STIM G0283 [place] [facility] 1/> AREAS 3 MEM [facility] OTH THAN INC INC WND CARE PART TX PLAN THERAPEUT 77417 [place] IC PX 1/> 3 MEM H[facility] AREAS INC INC EACH 15 MIN EXERCISES RADIOLOGI 30298 [place] KAMAL[place] C EXAM 3 MEDICAL CHEST 2 SERV VIEWS FOUNDATIO FRONTAL&[place] [address] [place] ARINA MCCOY HEAD/BRAI 3 MEDICAL N W/O SERV CONTRAST FOUNDATIO MATERIAL SBSQ 03802 [facility] 3 MEDICAL PRE CARE/DAY SERV 25 FOUNDATIO MINUTES SBSQ 52213 [facility] 3 MEDICAL PRE CARE/DAY SERV 25 FOUNDATIO MINUTES RADIOLOGI 39866 [place] KAMAL[place] C EXAM 3 MEDICAL CHEST 2 SERV VIEWS FOUNDATIO FRONTAL&L ATERAL SMR PRIM 68092 [place] SRC 3 [facility] GRAM/GIEM INC INC SA STAIN BCT FUNGI/LEONIDES L INITIAL 07145 [facility] 3 MEDICAL PRE CARE/DAY SERV 70 FOUNDATIO MINUTES CUL BACT 36158 [place] [facility] XCPT 3 [facility] URINE INC INC BLOOD/STO OL AEROBIC ISOL CUL BACT 45219 [place] AEROBIC 3 [facility] ADDL INC INC METHS DEFINITIV E EA ISOL IAADI 14245 [place] [facility] INFLUENZA 3 [facility] B VIRUS INC INC IAADI 25921 [place] STEVENSON INFFLUENZ 3 [facility] A A VIRUS INC INC SUSCEPTIB 42044 [place] LTY STDY 3 [facility] H[facility] ANTIMICRB INC INC IAL MICRO/AGA R DILUTJ RADIOLOGI 47661 [place] AYOOB AND C 3 MEDICAL EXAMINATI SERV [place] [address] [place] [facility] INFUSION 3 [facility] THERAPY INC INC PROPHYLAX IS/DX EA HOUR AMB A0427 [facility] SERVICE 3 AMBULANCE AMBULANCE ALS SERVICE SERVICE EMERGENCY [place]SP[place] LEV[place] 1 [place] [address] [place] [facility] INFUSION 3 [facility] THERAPY/P INC INC ROPHYLAXI S /DX 1ST TO 1 [place] [address] [place] [facility] INFUSION 3 [facility] THER INC INC PROPH ADDL SEQUENTIA L TO 1 HR GROUND A0425 [facility] MILEAGE 3 AMBULANCE AMBULANCE PER SERVICE SERVICE STATUTE MILE BASIC 11346 [place] METABOLIC 3 [facility] PANEL INC INC CALCIUM TOTAL CRITICAL 74513 [place] CARE 3 [facility] ILL/INJUR INC INC ED PATIENT INIT 30-74 MIN RADIOLOGI 21153 [place] C 3 [facility] EXAMINATI INC INC ON CHEST [place] FRONTAL CULTURE 90356 [place] [facility] BACTERIAL 3 [facility] BLOOD INC INC AEROBIC W/[place] [address] [place] [facility] TROPONIN 3 [facility] H[facility] QUANTITAT INC INC COURTNEY BLOOD 07159 [place] COUNT 3 [facility] HOS[facility] COMPLETE INC INC AUTO&AUTO DIFRNTL WBC ECG 77569 [place] ROUTINE 3 [facility] ECG INC INC W/LEAST 12 LDS TRCG ONLY W/O I&R CREATINE 57167 [place] [facility] KINASE 3 [facility] TOTAL INC INC THERAPEUT 04024 [place] IC PX 1/> 3 [facility] AREAS INC INC EACH 15 MIN EXERCISES ECG 93037 [place] ROUTINE 3 [facility] W/LEAST P 12 LDS I&R ONLY PHYSICAL 22052 [place] THERAPY 3 [facility] EVALUATIO INC INC N BLOOD 71190 [place] GASES ANY 3 [facility] INC INC COMBINATI ON PH PCO2 PO2 CO2 HCO3 E-STIM G0283 [place] [facility] 1/> AREAS 3 [facility] H[facility]OS[facility] OTH THAN INC INC WND CARE PART TX PLAN CREATINE 16056 V[place] KINASE MB 3 [facility] FRACTION INC INC ONLY COMPREHEN 33476 [facility] SIVE 3 [facility] PANEL COLLECTIO 96886 [facility] N VENOUS 3 [facility] BLOOD HOLDINGS HOLDINGS VENIPUNCT URE C-REACTIV 23836 [facility] E PROTEIN 3 [facility] HOLDINGS BLOOD 10495 [facility] COUNT 3 [place] [...] AT EQUIPME EQUIPME PRSC FLW RATE PLETHYSMO 08245 [place] GRAPHY 3 MEDICAL MEDICAL LUNG SERV SERV VOLUMES FOUNDATIO [place]OUNDAT[place] [address] [place] DIFFUSING 3 MEDICAL CAPACITY SERV FOUNDATIO PULMONARY 19346 [place] STRESS 3 MEDICAL TESTING SERV SIMPLE FOUNDATIO SPMTRY 06061 [place] W/VC 3 MEDICAL EXPIRATOR SERV Y RACHEL FOUNDATIO W/WO MXML VOL VNTJ GASES 46734 [facility] BLOOD PH 3 Y Y DIRECT HOSPITAL [facility] ANSHU XCPT PULSE OXIMITRY ARTERIAL 52371 [facility] PUNCTURE 3 [facility] THORAX 53892 [facility] W/O 3 Y Y CONTRAST [facility] MATERIAL CONTINUOU E0601 AYLIN VIERA S 3 HOME HOME POSITIVE MEDICAL MEDICAL AIRWAY EQUIPME EQUIPME [facility]ESSURE [facility] 99722 [place] SEETHARMR DISCHARGE 3 MEDICAL AJU HAZEL DAY SERV MANAGEMEN FOUNDATIO T 30 MIN/< PRESSURIZ 68904 [place] ED/NONPRE 3 [facility]OS[facility] SSURIZED INC INC INHALATIO N TREATMENT GROUND A0425 [facility] MILEAGE 3 AMBULANCE AMBULANCE PER SERVICE SERVICE STATUTE MILE AMBULANCE A0429 [facility] SERVICE 3 AMBULANCE AMBULANCE BLS SERVICE SERVICE EMERGENCY TRANSPORT RADIOLOGI 75525 TARAS JESICA ONTIVEROS C EXAM 3 MEDICAL CHEST 2 SERV VIEWS FOUNDATIO FRONTAL&L ATERAL COMPREHEN 78280 [place] SIVE 3 [facility] [address] TARAS JESICA RAMA ANGIOGRAP 3 MEDICAL HY CHEST SERV W/CONTRAS FOUNDATIO T/NONCONT RAST THER 76957 [place] PROPH/DX 3 [facility] NJX IV INC INC PUSH SINGLE/1S T SBST/DRUG ECG 69263 [place] ORDOÑEZ JR ROUTINE 3 [facility] W/LEAST P 12 LDS I&R ONLY CULTURE 43113 [place] BACTERIAL 3 [facility] BLOOD INC INC AEROBIC W/ID ISOLATES RADIOLOGI 51016 [place] [facility] C 3 [facility] EXAMINATI INC INC ON CHEST SINGLE VIEW FRONTAL SMR PRIM 47672 [place] SRC 3 [facility] GRAM/GIEM INC INC SA STAIN BCT FUNGI/LEONIDES L SUSCEPTIB 14017 [place] LTY STDY 3 [facility] ANTIMICRB INC INC IAL MICRO/AGA R DILUTJ BLOOD 05603 [place] COUNT 3 [facility] COMPLETE INC INC AUTO&AUTO DIFRNTL WBC ECG 88947 [place] ROUTINE 3 [facility] ECG INC INC W/LEAST 12 LDS TRCG ONLY W/O I&R CUL BACT 71212 [place] AEROBIC 3 [facility] ADDL INC INC METHS DEFINITIV E EA ISOL CUL BACT 24563 [place] XCPT 3 [facility] URINE INC INC BLOOD/STO OL AEROBIC ISOL ALBUTEROL J7620 YOUR YOUR TO 2.5 3 PHARMACY PHARMACY [facility] IPRATROPI UM BROM TO 0.5 MG ADMN SET A7003 YOUR YOUR SM VOL 3 PHARMACY PHARMACY NONFILTR [facility] PNEUMAT NEBULIZR DISPBL PHRM Q0513 YOUR YOUR DISPENSIN 3 PHARMACY PHARMACY G FEE [facility] INHALATIO N RX; PER 30 DAYS PRTBLE E0431 AYLIN VIERA GASEOUS 3 HOME HOME O2 SYS MEDICAL MEDICAL RENT; EQUIPME EQUIPME FLWMTR HUMIDFR&M ASK NEBULIZER E0570 AYLIN VIERA WITH 3 HOME HOME COMPRESSO MEDICAL MEDICAL R EQUIPME EQUIPME O2 CONC 1 E1390 AYLIN VIERA DEL PORT 3 HOME HOME 85%/>02 MEDICAL MEDICAL CONC AT EQUIPME EQUIPME PRSC FLW RATE RADIOLOGI 99515 [place] C EXAM 3 [facility] CHEST 2 INC INC VIEWS FRONTAL&L ATERAL CONTINUOU E0601 AYLIN VIERA S 3 HOME HOME POSITIVE MEDICAL MEDICAL AIRWAY EQUIPME EQUIPME PRESSURE DEVICE CREATINE 30160 [place] KINASE MB 3 [facility] FRACTION INC INC ONLY COMPREHEN 17439 V[place] SIVE 3 [facility] METABOLIC INC INC PANEL 3D 94156 [place] RENDERING 3 [facility] W/INTERP INC INC & POSTPROCE SS SUPERVISI ON RHYTHM 88970 [place] ECG 1-3 3 [facility] LEADS INC INC TRACING ONLY W/O I&R ECG 22496 [place] ORDOÑEZ JR ROUTINE 3 [facility] W/LEAST P 12 LDS I&R ONLY BLOOD 72954 [place] [facility] COUNT 3 [facility] COMPLETE INC INC AUTO&[place] [address] [place] TROPONIN 3 [facility] QUANTITAT INC INC COURTNEY CREATINE 15105 [place] KINASE 3 [place] [address] [place] HEAD/BRAI 3 [facility] N W/O INC INC CONTRAST MATERIAL ECG 91694 [place] COLE[place] ROUTINE 3 [facility] ECG INC INC [...] AIRWAY EQUIPME EQUIPME PRESSURE DEVICE NEBULIZER E0570 YALIN VIERA WITH 3 HOME HOME COMPRESSO MEDICAL [...] PER SESS TO 2 PER DAY C-REACTIV 49504 [facility] E PROTEIN 3 [facility] BLOOD 35474 [facility] COUNT 3 [facility] AUTOMATED COMPREHEN 92481 [facility] SIVE 3 [facility] MET[employer]OLIC [facility] [facility] PANEL COLLECTIO 92269 [facility] N VENOUS 3 [...] FLWMTR HUMIDFR&M ASK O2 CONC 1 E1390 AYLNI VIERA DEL PORT 3 HOME HOME 85%/>02 MEDICAL MEDICAL CONC AT EQUIPME EQUIPME PRSC FLW RATE PUL G0424 [place] [facility] REHAB 3 [facility] INCL EXER INC INC 1 HR PER SESS TO 2 PER DAY POLYSOM 48175 [place] COLE[facility] 6/>YRS 3 [facility] MEM [...] O2 SYS MEDICAL MEDICAL RENT; EQUIPME EQUIPME FLWMAR HUMIDFR&M ASK BRNCDILAT 42897 [place] [facility] RSPSE 3 [facility] SPMTRY INC INC PRE&POST- BRNCDILAT ADMN GAS 88587 [place] DILUT/WAS 3 [facility] HOUT LUNG INC INC VOL W/WO DISTRIB VENT&V O2 CONC 1 E1390 AYILN VIERA DEL PORT 3 HOME HOME 85%/>02 MEDICAL MEDICAL CONC AT EQUIPME EQUIPME PRSC FLW RATE IRON 97423 [facility] BINDING 3 Y Y CAPACITY [facility] RADIOLOGI 47657 [facility] C EXAM 3 Y Y CHEST 2 [facility] VIEWS [place]ONTAL&[place] [address] [facility] FOLIC 3 Y Y ACID [facility] COMPREHEN 48339 [facility] SIVE 3 Y Y METABOLIC [facility] PANEL COLLECTIO 73885 [facility] N VENOUS 3 Y Y BLOOD [facility] VENIPUNCT URE ANTINUCLE 14878 [facility] LAB HEIDI AR 3 Y [facility] [place] FLUORESCE 89738 [facility] NT 3 Y Y NONNFCT [facility] AGT ANTB SCREEN EA ANTIBODY CYANOCOBA 77081 [facility] CLARISSE 3 Y Y VITAMIN [facility] B-12 BLOOD 00065 [facility] COUNT 3 Y Y COMPLETE [facility] AUTO&AUTO DIFRNTL WBC PREALBUMI 26505 [facility] N 3 Y [facility] RHEUMATOI 35225 [facility] D FACTOR 3 Y Y QUANTITAT [facility] COURTNEY STANDARD K0001 AYLIN VIERA WHEELCHAI [...] AT EQUIPME EQUIPME PRSC FLW RATE POLYSOM 17498 [place] COLE[facility] 6/>YRS 3 [facility] SLEEP INC INC W/CPAP 4/> ADDL [facility] 27788 [facility] 3 MEDICAL JAG DAY SERV MANAGEMEN FOUNDATIO T 30 MIN/< SBSQ 61349 [facility] 3 MEDICAL JAG CARE/DAY SERV 25 FOUNDATIO MINUTES RADEX ABD 35164 [place] DISANTIS COMPL 3 MEDICAL SIDDHARTHA AQT ABD SERV W/S/E/D FOUNDATIO VIEWS 1 VIEW CH RADEX ABD 39589 [place] JESICA JAM COMPL 3 MEDICAL AQT ABD SERV W/S/E/D FOUNDATIO VIEWS 1 VIEW CH INITIAL 16079 [facility] 3 Y OF [place] CARE/DAY [place] [address] [place] [address] [place] SOHEIL[place] ABDOMINAL 3 MEDICAL DEENA REAL [...] T WALKER MEDICAL MEDICAL EQUIPME EQUIPME RADIOLOGI 66620 [facility] [place] KOSTELIC C EXAM 3 RADIOLOGY MONTSERRAT CHEST 2 VIEWS FRONTAL&L ATERAL DUP-SCAN 33977 JERRI JERRI XTR VEINS 3 ESPERANZA ESPERANZA COMPLETE BILATERAL STUDY RADIOLOGI 13436 [facility] [place] NOEL C EXAM 3 RADIOLOGY GODFREY CHEST 2 VIEWS FRONTAL&L ATERAL MRI BRAIN 87321 [place] LUKINS BRAIN 3 MEDICAL TIERRA STEM W/O SERV CONTRAST FOUNDATIO MATERIAL SBSQ 46732 [facility] 3 E CARE CARE/DAY CTR OF 15 THE B MINUTES [place] [facility] [address] [place] INCL 3 MEDICAL OSCAR FLUOR SERV GDNCE DX FOUNDATIO W/CELL WASHG SPX SBSQ 17344 [facility] 3 E CARE CARE/DAY CTR OF 25 THE B MINUTES CLOSED 3324 [facility] BIOPSY OF 3 Y Y [facility] VENOUS 3893 [facility] CATHETERI 3 Y Y [facility] NOT ELSEWHERE CLASSIFIE D ECG 78031 TARAS NEVAREZ CHI ROUTINE 3 MEDICAL ECG SERV W/LEAST FOUNDATIO 12 LDS I&R ONLY ECG 94476 TARAS HU ROUTINE 3 MEDICAL NAN ECG SERV W/LEAST FOUNDATIO 12 LDS I&R ONLY CONTINUOU E0601 AYLIN VIERA S 2 HOME HOME POSITIVE MEDICAL MEDICAL AIRWAY EQUIPME EQUIPME PRESSURE DEVICE STANDARD K0001 AYLIN ABARCARELL WHEELCHAI 2 HOME HOME R MEDICAL MEDICAL EQUIPME EQUIPME THORACOSC 3320 [facility] LUNG 2 Y Y BIOPSY [facility] ECG 89286 TARAS NEVAREZ CHI ROUTINE 2 MEDICAL ECG SERV W/LEAST FOUNDATIO 12 LDS I&R ONLY ECG 44901 TARAS ROSENBERG ROUTINE 2 MEDICAL ECG SERV W/LEAST FOUNDATIO 12 LDS I&R ONLY ECG 65600 TARAS NEVAREZ CHI ROUTINE 2 MEDICAL ECG SERV W/LEAST FOUNDATIO 12 LDS I&R ONLY ECG 97203 TARAS HU ROUTINE 2 MEDICAL NAN ECG SERV W/LEAST FOUNDATIO 12 LDS I&R ONLY CONT 9671 [facility] 2 Y Y [facility] < 96 CONSECUTI VE HOURS INSERTION 9604 [facility] 2 Y Y [facility] EAL TUBE RADIOLOGI 87248 [place] DAWNA C 2 MEDICAL TIERRA EXAMINATI IMAGING ON CHEST ASS SINGLE VIEW FRONTAL RADIOLOGI 75912 [place] DAWNA C 2 MEDICAL TIERRA EXAMINATI IMAGING ON CHEST ASS SINGLE VIEW FRONTAL ADMN SET A7003 YOUR YOUR SM VOL 2 PHARMACY PHARMACY NONFILTR [employer] PNEUMAT NEBULIZR DISPBL ALBUTEROL J7620 YOUR YOUR TO 2.5 2 PHARMACY PHARMACY [employer] IPRATROPI UM BROM TO 0.5 MG PHARM G0333 YOUR YOUR DISPEN 2 PHARMACY PHARMACY [employer] RX; INITIAL 30-DAY SUPPLY ECG 23723 POPPY LOPEZ ROUTINE 2 EMERGENCY VENUS ECG SERVICES W/LEAST 12 LDS I&R ONLY RADIOLOGI 80489 YAZ TONEY C EXAM 2 MEDICAL TIERRA CHEST 2 IMAGING VIEWS ASS FRONTAL&L ATERAL BLOOD 23199 [facility] OCCULT 2 N N PEROXIDAS COMMUNITY COMMUNITY E ACTV HOSPITA HOSPITA QUAL FECES 1-3 SPEC SMR PRIM 51423 [facility] SRC CPLX 2 N N SPEC COMMUNITY COMMUNITY STAIN HOSPITA HOSPITA OVA&CHAD ITS OVA&CHAD 90656 [facility] ITES 2 N N DIRECT COMMUNITY COMMUNITY SMEARS HOSPITA HOSPITA CONCENTRA TION & ID SMR PRIM 26722 [facility] SRC 2 N N GRAM/GIEM COMMUNITY COMMUNITY SA STAIN HOSPITA HOSPITA BCT FUNGI/LEONIDES L BLOOD 87275 CULBERTSO CULBERTSO OCCULT 2 N KALYAN N KALYAN PEROXIDAS E ACTV QUAL FECES 1 DETER COMPREHEN 42811 LAB HEIDI LAB HEIDI SIVE 2 AMERIC AMERIC METABOLIC HOLDING HOLDING PANEL COLLECTIO 61738 LAB HE[facility]I LAB HEIDI N VENOUS 2 AMERIC AMERIC BLOOD HOLDING HOLDING VENIPUNCT URE C-REACTIV 50022 LAB HE[facility] LAB HEIDI E PROTEIN 2 AMERIC [employer] HOLDING HOLDING BLOOD 70700 LAB HE[facility]I LAB HEIDI COUNT 2 AMERIC AMERIC COMPLETE HOLDING HOLDING AUTOMATED BLOOD 18013 LAB HEIDI LAB HEIDI COUNT 1 AMERIC AMERIC COMPLETE HOLDING HOLDING AUTOMATED C-REACTIV 52294 LAB HEIDI LAB HEIDI E PROTEIN 1 AMERIC [employer] HOLDING HOLDING COLLECTIO 86969 LAB HEIDI LAB HEIDI N VENOUS 1 AMERIC AMERIC BLOOD HOLDING HOLDING VENIPUNCT URE COMPREHEN 21239 LAB HEIDI LAB HEIDI SIVE 1 [employer]IC [employer] METABOLIC [employer]ING HOLDING PANEL RADEX 13733 [facility] ANKLE 1 Y Y COMPLETE HOSPITAL HOSPITAL MINIMUM 3 VIEWS WALKING L4360 [employer] BOOT 1 PNEUMATC &/ VACUUM PREFAB CUSTM FIT LIPID 65468 [facility] PANEL 1 [employer] TRANSFERA 59488 [facility] SE 1 [employer] ASPARTATE AMINO AST SGOT COLLECTIO 35614 [facility] N VENOUS 1 [place] INC [employer] INC BLOOD VENIPUNCT URE APPLICATI 01665 [place] TARAS ON SHORT 1 MEDICAL MEDICAL LEG CAST SERV SERV WALKING/A FOUNDATIO FOUNDATIO MBULATORY CAST Q4038 TARAS MARTINEZ SUPPLIES 1 MEDICAL KAMALA SHORT LEG SERV CAST FOUNDATIO ADULT FIBERGLAS S RADIOLOGI 76398 [facility] C 1 [facility] FOOT 2 VIEWS CAST Q4038 TARAS MARTINEZ SUPPLIES 1 MEDICAL KAMALA SHORT LEG SERV CAST FOUNDATIO ADULT FIBERGLAS S APPLICATI 93049 [place] TARAS ON SHORT 1 MEDICAL MEDICAL LEG CAST SERV SERV BELOW FOUNDATIO FOUNDATIO KNEE-TOE PHYSICAL 44975 [facility] THERAPY 0 Y Y EVALUATIO [facility] G0378 [facility] OBSERVATI 0 Y Y ON HOSPITAL HOSPITAL SERVICE PER HOUR BONE 82299 [facility] GRAFT ANY 0 Y Y DONOR HOSPITAL HOSPITAL AREA MAJOR/LAR GE ARTHRODES 32534 [facility] IS 0 Y Y [facility] [address] [place] MADELAINECOTT GUIDANCE 0 MEDICAL JUS NEEDLE SERV PLACEMENT FOUNDATIO IMG S&I INJECTION 16897 [place] WAINSCOTT 0 MEDICAL JUS ANESTHETI SERV C AGENT FOUNDATIO SCIATIC NRV SINGLE INJECTION 41308 [place] OKINSCOTT 0 MEDICAL JUS ANESTHETI SERV C AGENT FOUNDATIO FEMORAL NERVE SINGLE FLUOROSCO 28822 [facility] PY SPX >1 0 Y Y HOUR [facility]ITAL HOSPITAL PHYS/QHP TIME ANESTHESI 01062 [place] GERALD A ON BONY 0 MEDICAL JUS PELVIS SERV FOUNDATIO SMR PRIM 91202 LAB [facility] LAB HEIDI SRC 0 AMERIC AMERIC GRAM/GIEM HOLDING HOLDING SA STAIN BCT FUNGI/LEONIDES L CUL BACT 66408 LAB HE[facility]I LAB HEIDI XCPT 0 AMERIC AMERIC URINE HOLDING HOLDING BLOOD/STO OL AEROBIC ISOL CULTURE 46395 LAB HE[facility]I LAB HEIDI BACTERIAL 0 AMERIC AMERIC ANY HOLDING HOLDING SOURCE ANAEROBIC ISO&ID ECG 12252 [place]LE[place] ROUTINE 0 [facility] ECG INC INC W/LEAST 12 LDS TRCG ONLY W/O I&R CREATINE 24584 [place] KINASE 0 [facility] TOTAL INC INC BASIC 29356 [place] METABOLIC 0 [facility] PANEL INC INC CALCIUM TOTAL RADIOLOGI 70277 [place] DAWNA C 0 MEDICAL TIERRA EXAMINATI IMAGING [place] [address] [place] TROPONIN 0 [facility] QUANTITAT INC INC COURTNEY BLOOD 59506 [place] COUNT 0 [facility] COMPLETE INC INC AUTO&AUTO DIFRNTL WBC CREATINE 11710 [place]ASULE[place] COLEMAN KINASE MB 0 [facility] FRACTION INC INC ONLY THER 57935 [place] PROPH/DX 0 [facility] NJX IV INC INC PUSH SINGLE/1S T SBST/DRUG ECG 51478 POPPY MORRISSEY ROUTINE 0 EMERGENCY III TRISTA ECG SERVICES W/LEAST 12 LDS I&R ONLY PRESSURIZ 03421 [place] COLE[place] ED/NONPRE 0 [facility] SSURIZED INC INC INHALATIO N TREATMENT CT LOWER 16131 [place] COLE[facility] EXTREMITY 0 [facility] W/O INC INC CONTRAST MATERIAL DUP-SCAN 94814 [place] CO[place] XTR VEINS 0 [facility] INC INC UNILATERA L/LIMITED STUDY 3D 95611 [place] RENDERING 0 [facility] INC INC W/INTERP& POSTPROC DIFF WORK STATION INJECTION J1040 CULBERTSO CULBERTSO 9 N, GEREMIAS DOUGHERTY METHYLPRE DNISOLONE ACETATE 80 MG BLOOD 29882 CULODILONO CULBERTSO OCCULT 9 N, GEREMIAS DOUGHERTY PEROXIDAS E ACTV QUAL FECES 1 DETER MYOCRD 53393 [facility] PRFUJ STD 9 N N EJEC FXJ [facility] CV STRS 41101 DIMITRIO CULBERTSO TST 9 N, GEREMIAS DOUGHERTY XERS&/OR RX CONT ECG I&R ONLY CV STRS 26022 MONICA ANDERSON TST 9 N, GEREMIAS DOUGHERTY XERS&/OR RX CONT ECG W/O I&R CV STRS 92713 [facility] TST 9 N N XERS&/OR COMMUNITY COMMUNITY RX CONT [facility] ECG TRCG ONLY TECHNETIU A9500 [facility] TC-99M 9 N N SESTAMIBI [facility] DX PER HOSPITAL HOSPITAL STUDY DOSE MYOCRD 62671 [facility] PRFUJ STD 9 N N WALL [facility] QUAL/RENEE STD MYOCRD 41573 [facility] 9 N N TOMOG [facility] SPECT REGION[facility] [employer] DRIVER [facility] STD COLLECTIO 18908 [facility] N VENOUS 9 [facility] [address] [facility] IRON 9 [facility] IRON 99089 [facility] BINDING 9 [facility] CAPACITY COLLECTIO 08407 [facility] N VENOUS 9 [facility] BLOOD VENIPUNCT URE BLOOD 88686 [facility] COUNT 9 [facility] [...] INC. INC. CMPNT PER 15 MINS CULTURE 50557 LAB HEIDI LAB HEIDI BACTERIAL 9 AMERIC AMERIC ANY HOLDING HOLDING SOURCE ANAEROBIC ISO&ID CUL BACT 19433 LAB HE[facility]I LAB HEIDI XCPT 9 AMERIC AMERIC URINE HOLDING HOLDING BLOOD/STO OL AEROBIC ISOL SUSCEPTIB 64633 LAB HE[facility]I LAB HEIDI LTY STDY 9 AMERIC AMERIC ANTIMICRB HOLDING HOLDING IAL MICRO/AGA R DILUTJ SMR PRIM 05894 LAB HE[facility]I LAB HEIDI SRC 9 AMERIC AMERIC GRAM/GIEM HOLDING HOLDING SA STAIN BCT FUNGI/LEONIDES L COLLECTIO 04137 [facility] N VENOUS 9 [facility] [address] [facility] PROSTATE 9 [facility] SPECIFIC ANTIGEN TOTAL LIPID 47315 [facility] PANEL 9 [facility] COMPREHEN 70638 [facility] SIVE 9 [facility] METABOLIC PANEL INJECTION J2270 [facility] MORPHINE 9 Y [facility] UP TO 10 MG INJECTION J0690 [facility] 9 Y Y CEFAZOLIN [facility] SODIUM 500 MG REMOVAL 83011 [facility] IMPLANT 9 Y Y [facility] INJECTION J2175 [facility] 9 Y Y MEPERIDIN [facility] E HCL PER 100 MG RINGERS J7120 [facility] LACTATE 9 Y Y INFUSION [facility] UP TO 1000 CC CUL BACT 10883 [facility] XCPT 9 Y Y URINE HOSPITAL [facility] BLOOD/STO OL AEROBIC ISOL LEVEL I 75835 [facility] SURG 9 Y Y PATHOLOGY [facility] GROSS EXAMINATI ON ONLY INJECTION J3010 [facility] FENTANYL 9 Y Y CITRATE [facility] 0.1 MG SMR PRIM 19623 [facility] SRC 9 Y Y GRAM/GIEM HOSPITAL HOSPITAL SA STAIN BCT FUNGI/LEONIDES L FLUOROSCO 38779 [facility] PY SPX >1 9 Y Y [facility] PHYS/QHP TIME BASIC 22389 [facility] METABOLIC 9 Y Y PANEL HOSPITAL HOSPITAL CALCIUM TOTAL COLLECTIO 16272 [facility] N VENOUS 9 Y Y BLOOD HOSPITAL HOSPITAL VENIPUNCT URE BLOOD 40577 [facility] COUNT 9 Y Y COMPLETE [facility] AUTOMATED ECG 53243 [facility] ROUTINE 9 Y Y ECG [facility] W/LEAST 12 LDS TRCG ONLY W/O I&R RADEX 21716 [facility] FOOT 9 Y Y COMPLETE [facility] MINIMUM 3 VIEWS ECG 41681 [place] RENA, ROUTINE 9 MEDICAL MARIXA G ECG SERV W/LEAST FOUNDATIO 12 LDS I&R ONLY CELL 76024 [facility] COUNT 9 Y Y MISC BODY [facility] FLUIDS W/DIFFERE NTIAL COUNT CUL BACT 87664 [facility] XCPT 9 Y Y URINE HOSPITAL [facility] BLOOD/STO OL AEROBIC ISOL COLLECTIO 42902 [facility] N VENOUS 9 Y Y BLOOD [facility] VENIPUNCT URE ARTHROCEN 23980 [facility] MAKSIM TESIS 9 LTH II, NESHA ASPIR&/IN ORTHOPAED A J MAJOR IC JT/BURSA SURGEONS W/O US PSC SMR PRIM 47756 [facility] SRC 9 Y Y GRAM/GIEM [facility] SA STAIN BCT FUNGI/LEONIDES L INJ [...] SKL INC. INC. TECH LABR-15 MIN SBSQ 87676 [facility] 8 EMERGENCY N, CARE/DAY SERVICES TADARRO 25 MINUTES ASSOCIATE S ANESTH 95000 KRANTHI CARDOZO 8 [facility] REEMA Harvey ANESTHESI ARTHROSCO A PSC PIC PROC KNEE JOINT INITIAL 95504 [facility] INPATIENT 8 EMERGENCY N, CONSULT SERVICES TADARRO NEW/ESTAB PT 110 ASSOCIATE MIN S LEVEL III 08187 [place] ANN, SURG 8 MEDICAL TIM E PATHOLOGY SERV FOUNDATIO GROSS&VENUS ROSCOPIC EXAM COLONOSCO 29472 [facility], PY FLX DX 8 [place] RICHY G W/COLLJ GASTROENT SPEC WHEN PFRMD ANES 41444 [place] HIRO, LOWER 8 ANESTHESI JENNIFER Vieira INTESTINE A GROUP PSC ENDOSCOPY DISTAL DUODENUM CUL BACT 44570 [facility] XCPT 8 Y Y URINE HOSPITAL [facility] BLOOD/STO OL AEROBIC ISOL SMR PRIM 15692 [facility] SRC 8 Y Y GRAM/GIEM HOSPITAL [facility] SA STAIN BCT FUNGI/LEONIDES L CELL 74542 [facility] COUNT 8 Y Y MISC BODY [facility] FLUIDS W/DIFFERE NTIAL COUNT PHRM Q0514 [...] INHALATIO N RX; PER 30 DAYS DUP-SCAN 79064 [facility] LXTR 8 N N ART/ARTL COMMUNITY [facility] COMPL BI STUDY PHRM Q0513 PULMO PULMO [...] NONFILTR PHARMACY PHARMACY PNEUMATIC NEBULIZER DISPBL RADIOLOGI 22570 MAKSIM MAKSIM C EXAM 8 II, NESHA II, NESHA KNEE A A COMPLETE 4/MORE VIEWS RADIOLOGI 59196 MAKSIM MAKSIM C 8 II, NESHA II, NESHA EXAMINATI A A ON KNEE 1/2 VIEWS ALBUTEROL J7620 PULMO PULMO TO 2.5 8 DOSE DOSE MG & PHARMACY PHARMACY IPRATROPI UM BROM TO 0.5 MG PHRM Q0513 PULMO PULMO DISPENSIN 8 DOSE DOSE G FEE PHARMACY PHARMACY INHALATIO N RX; PER 30 DAYS Encounters Encounter Start End Date Code Location Performer Type Date [facility] [address] [facility] [place] 3 3 [facility] [place] [facility] 3 [facility] 59520 TARAS SALAZAR DEPT 3 3 MEDICAL JORGE VISIT SERV HIGH FOUNDATIO SEVERITY& THREAT [facility] UN[facility]ERS[facility] - 3 3 Y [facility] [place] - 3 3 [facility] OFF[facility] 41584 ARTHRITIS ALBERTO [facility] 3 3 CENTER T VISIT OF 25 [facility] UNIVERSIT - 3 3 Y [facility] T EMERGENCY 07199 POPPY SANTA DEPT 3 3 EMERGENCY VISIT SERVICES HIGH SEVERITY& THREAT [facility] [place] - 3 3 [facility] [place] - 3 3 [facility] 90338 Avtar LAZCANO OUTPATIEN 3 3 FILEMON SHAH T VISIT [facility] 15 MINUTES EMERGENCY 19741 [place] 3 3 [facility] T VISIT HIGH/URGE NT SEVERITY EMERGENCY 25069 POPPY SANTA DEPT 3 3 EMERGENCY VISIT SERVICES HIGH SEVERITY& THREAT [facility] [place] - 3 3 [facility] T OFFICE 21218 ARTHRITIS ALBERTO RIT OUTPATIEN 3 3 CENTER T VISIT OF 25 [facility] EMERGENCY OFFICE 77987 Avtar LAZCANO OUTPATILENNY 3 3 FILEMON SHAH T VISIT [facility] 15 [facility] [place] - 3 3 [facility] OFFICE 09989 ARTHRITIS ALBERTO RIT OUTPATIEN 3 3 CENTER T VISIT OF 10 [facility] [place] - 3 3 [facility] [place] - 3 3 [facility] 55549 ARTHRITIS ALBERTO RIT OUTPATIEN 3 3 CENTER T VISIT OF 25 [facility] [place] - 3 3 [facility] OFFICE 23795 [facility] 3 MEDICAL JAM T VISIT SERV 40 [facility] [address] 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 - 2 3 Y INPATIENT HOSPITAL EMERGENCY 61198 POPPY LOPEZ DEPT 2 2 EMERGENCY VENUS VISIT SERVICES HIGH SEVERITY& THREAT [facility] EMERGENCY 56054 POPPY SANTA DEPT 2 2 EMERGENCY VISIT SERVICES HIGH SEVERITY& THREAT [facility] [place] [address] 2 N [facility] HOSPITA OFFICE 02712 CULBERTSO CULBERTSO OUTPATIEN 2 2 N KALYAN N KALYAN T VISIT 15 MINUTES OFFICE 27383 CULBERTSO CULBERTSO OUTPATIEN 1 1 N KALYAN N KALYAN T VISIT 15 MINUTES HOSPITAL UNIVERSIT - [address] [facility] - [address] [facility] UN[facility]ERS[facility] - 0 0 Y [facility] T OFFICE 28401 CULBERTSO CULBERTSO OUTPATIEN 0 0 N KALYAN N KALYAN T VISIT 15 MINUTES OFFICE 97780 TARAS MARTINEZ OUTPATIEN 0 0 MEDICAL KAMALA T VISIT SERV 15 FOUNDATIO MINUTES EMERGENCY 02873 [place] 0 0 [facility] DEPARTMEN INC T VISIT MODERATE SEVERITY EMERGENCY 87837 POPPY MORRISSEY DEPT 0 0 EMERGENCY III TRISTA VISIT SERVICES HIGH SEVERITY& THREAT [facility] [place] - 0 0 [facility] OUTPATIEN INC T OFFICE 61096 TARAS MARTINEZ OUTPATIEN 0 0 MEDICAL KAMALA T VISIT SERV 15 FOUNDATIO MINUTES EMERGENCY 91917 [place] 0 0 [facility] DEPARTMEN INC T VISIT LOW/MODER SEVERITY [facility]PITAL [place] - 0 0 [facility] OUTPATIEN INC T OFFICE 58033 CULBERTSO CULBERTSO OUTPATIEN 9 9 N, GEREMIAS DOUGHERTY VISIT 15 MINUTES [facility] 64519 CULBERTSO CULBERTSO OUTPATIEN 9 9 N, GEREMIAS DOUGHERTY VISIT 15 MINUTES OFFICE 99432 CULBERTSO CULBERTSO OUTPATIEN 9 9 N, GEREMIAS DOUGHERTY VISIT 25 MINUTES OFFICE 87168 CULBERTSO CULBERTSO OUTPATIEN 9 9 NGEREMIAS ROBERT T VISIT 15 MINUTES HOSPITAL UNIVERSIT - 9 9 Y [facility] T OFFICE 16064 KAM ENCARNACION 9 9 MEDICAL TONO Marley ION SERV NEW/ESTAB FOUNDATIO PATIENT 40 MIN [facility] UNIVERSIT - 9 9 Y [facility] T OFFICE 50815 [facility] 9 9 [facility] NESHA CLEMONS T VISIT ORTHOPAED A 15 IC MINUTES [facility] - [address] [facility] UN[facility] - 8 8 Y [facility] T OFFICE 17378 CULBERTSO [facility] 8 8 NGEREMIAS ROBERT T VISIT 15 MINUTES [facility] 95695 [facility] 8 8 IINESHA II, GLEN T VISIT A A 15 MINUTES
--- OUTSIDE RECORDS SUMMARY | 2016-10-07 14:29 | External Medical Summary Rpt ---
Demographics Preferred Language Turkmen Marital Status Unknown Pentecostal Affiliation Unknown Race Unknown Ethnic Group Unknown Author Author , Organization [employer] Address Unknown Phone Unavailable Purpose Continuity of Care Document - through 2016 Immunization No patient found.
--- OUTSIDE RECORDS SUMMARY | 2016-10-07 14:29 | External Medical Summary Rpt ---
Demographics Preferred Language Kiswahili Marital Status Unknown Worship Affiliation Unknown Race Unknown Ethnic Group Unknown Author Author , Organization [employer] Address Unknown Phone Unavailable Purpose Continuity of Care Document - through 2016 Immunization No patient found.
--- NOTE | 2016-10-07 14:46 | RADIOLOGY REPORT PS360 ---
CHEST-PORTABLE HISTORY: Shortness of air SOA ORDERING PHYSICIAN: Joel Jewell MD PATIENT AGE: 60 years COMPARISON: 5 02/13 and 08/01/2012 FINDINGS: Mild cardiomegaly without failure.. Chronic pulmonary fibrotic changes are present bilaterally. Superimposed increased density is present in the right upper lobe suspicious for superimposed pneumonia. Right humeral prosthesis is present. IMPRESSION: Cardiomegaly with chronic interstitial changes with suspected superimposed right upper lobe pneumonia
--- NOTE | 2016-10-07 15:06 | Emergency Room Report ---
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 Y Clinical Suspician of Infection? N Mental Status: 1 - Regular (Normal Baseline) Sepsis Risk:Severe Sepsis Risk Have you (or family members/close friends) recently traveled outside the [place]? N If Yes, where/when: Have you had exposure to infectious disease within the past month? TB? Other? Specify: Source patient, RN notes reviewed, RN/MD Exam Limitations no limitations Comment This is a 60-year-old male gentleman arriving to the emergency room by ambulance with complaints of subjective fever, jaundice weakness, chills, productive cough and shortness of breath. The patient was just recently hospitalized for about a week and discharged yesterday, with same complaints. Patient now is also returning to the emergency room with nausea, vomiting, diarrhea as well. Is currently on oral antibiotics for pneumonia. ALLERGIES Coded Allergies: No Known Allergies (10/07/16) Home Medications Active Scripts Prednisone (Deltasone) 20 MG PO DAILY #10 TAB Prov: 09/27/16 Reported Medications Ranolazine (Ranexa) 1,000 MG PO BID Metoprolol Tartrate (Lopressor) 25 MG PO BID #60 Gabapentin 300 MG PO BID #60 Omeprazole (Prilosec 20MG) 20 MG PO DAILY Leflunomide (Arava) 20 MG PO DAILY Alprazolam (Xanax 1MG) 1 MG PO TID #90 TAB Sertraline Hydrochloride (Sertraline 100MG) 100 MG PO DAILY #30 CLOPIDOGREL BISULFATE (Clopidogrel) 75 MG PO DAILY #30 MULTIVIT-MIN W/FE-FA ( Multivitamin Tablet) 1 TAB PO DAILY Montelukast Sodium (Singulair) 10 MG PO QHS HYDROCODONE/ACETAMINOPHEN (Hydrocodon-Acetaminophn 10-325) 1 TAB PO Q4HP PRN PAIN #150 TRAZODONE HCL (Trazodone HCl) 50 MG PO QHS ALBUTEROL-IPRATROPIUM (Combivent Inhaler) 1 PUFFS IN Q6H FLUTICASONE/SALMETEROL (Advair 250-50 Diskus) 1 PUFF IN BID History Medical History General CAD? No Angina: No [place]: Yes Hypertension? Yes Hyperlipidemia? No CHF? No DVT? No PE? No COPD? Yes Asthma? Yes Anemia? Yes GERD? Yes Gastric ulcers? No GI Bleed? No Hernia? Yes Thyroid Problems? No Hypothyroidism? No CVA? No Seizures? No Diabetes? No Renal Insuffiency? No End Stage Renal Disease? No UTI? Yes Stones? Yes BPH? Yes GB Disease: No Nephritic Syndrome? No Asplenia? No Hepatitis? No Sickle Cell Disease? No Arthritis? Yes Migraines? No Cataracts? No Glaucoma? No MRSA? Yes HIV? No TB? No Anxiety? Yes Depression? Yes Cancer? No More? 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 Immunization Hx DT/Tetanus Unknown Flu 2015-FSN Pneumonia Received In Past Surgical Hx Previous Surgery?Y LEFT ANKLE BILATERAL CARPAL TUNNEL RIGHT FOOT R SHOULDER REPLACEMENT IBV VALVE RT LUNG LEFT ANKLE IBV VALVE RT LUNG REMOVED Family History Family Hx Diabetes No CAD No Hypertension Yes Hyperlipidemia No Cancer Yes TB No Social History Smoking Hx Smoker: Current Some Day Smoker Tobacco: Yes Type Cigarettes Packs/day < 1 Pack Alcohol Alcohol: No Review of Systems All Other Systems Reviewed and Negative Constitutional see HPI, chills, fever, malaise, weakness Respiratory cough, shortness of breath, wheezing Physical Exam Vital Signs Vital Signs Date Time Temp Pulse Resp B/P Pulse O2 O2 Flow FiO2 Ox Delivery Rate 10/07 1539 109 16 98/59 96 2 10/07 1440 3 10/07 1440 3 10/07 1440 3 10/07 1440 93 OXYGEN 3 10/07 1403 100.6 122 26 95/70 94 General Appearance normal appearance, WD/WN, mild distress, fever Neck normal inspection, non-tender, supple, full range of motion Respiratory Status Yes: trachea midline, chest symmetrical, non tender chest. No: respiratory distress. Lung Sounds anterior: wheezing. posterior: wheezing. bilateral: wheezing. 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 No Comment 16:00 - case discussed with Dr. Perez, advised the patient's presentation, examination, findings, vital signs, ED course. Dr. Perez recommended readmitting patient, and placed him on cefepime 2 g IV piggyback every 6 hours. I will write temporary, bridge admission orders, per hospital protocol. Upon patient's arrival to the floor the units nurse will contact Dr. Perez, in order to obtain full inpatient admission orders. Results/Orders Laboratory Tests 10/07/16 1512: Lactic Acid 1.3 10/07/16 1512: Amylase 48, Lipase 55 L 10/07/16 1500: Sodium 137, Potassium 4.1, Chloride 96 L, Carbon Dioxide 39 H, BUN 19 H, Creatinine 1.3, Estimated Creat Clear 95, Estimated GFR (MDRD) 57, Glucose 72 L , Calcium 8.5, Total Bilirubin 0.8, AST 28, ALT 34, Alkaline Phosphatase 56, Creatine Kinase 46, CK-MB (CK-2) Rel Index 1.1, CK and CKMB Interp 0.5, Troponin I 0.03, Total Protein 6.6, Albumin 2.5 L, Globulin 4.1 H, Albumin/Globulin Ratio 0.6 L, WBC 15.6 H, Corrected WBC (auto) 15.4, RBC 3.82 L, Hgb 10.4 L, Hct 33.7 L, MCV 88.1, RDW 20.2 H, Plt Count 224, MPV 6.3 L, Gran % 84.4 H, Gran # 13.2 H, Total Counted 100, Lymphocytes % 11.0, Monocytes % 2.7, Eosinophils % 0.9, Basophils % 0.2, Neutrophils 81 H, Band Neutrophils 4, Lymphocytes (Manual) 13, Lymphocytes # 1.7, Monocytes (Manual) 2, Monocytes # 0.4, Eosinophils # 0.1, Basophils # 0.0, Nucleated RBCs 1, Platelet Estimate NORMAL, PUBS MCHC 30.8 L, MCH 27.1 05/11/17 1420: Urine Color YELLOW, Urine Appearance CLEAR, Urine pH 7.0, Ur Specific [place] 1.015, Urine Protein 1+ H, Urine Ketones NEGATIVE, Urine Blood TRACE-INTACT, Urine Nitrate NEGATIVE, Urine Bilirubin NEGATIVE, Urine Urobilinogen 0.2, Ur Leukocyte Esterase NEGATIVE, Urine WBC 10-20, Urine Bacteria 2+, Hyaline Casts 5 -10, Urine Mucus 1+, Urine Glucose NEGATIVE Current Medication Orders Sig/Rito Start time Last Medication Dose Route Stop Time Status Admin Albuterol/Ipratropium 0 .STK-MED ONE 10/07 1436 DC INH Albuterol/Ipratropium 3 ML ONCE ONE 10/07 1415 DC 10/07 INH 10/07 1416 1439 Sodium Chloride 10 ML PRN PRN 10/07 1415 AC IV 10/08 1401 Orders Procedure Date/time Status Decision to admit 10/07 1606 Active LIPASE 10/07 1600 Complete AMYLASE 10/07 1600 Complete URINALYSIS/COMPLETE 10/07 1559 Complete DIFFERENTIAL-WBC 10/07 1500 Complete RT Pulse Oximetry, Provide 10/07 1440 Active RT O2 Installation/Change Set 10/07 1440 Active RT O2 Therapy, Monitor/[place] 10/07 1440 Active RT Aerosol Treatment, Provide 10/07 1440 Active RT Aerosol Treatment, Provide 10/07 1440 Active ELECTROCARDIOGRAM REQUEST 10/07 1402 Active RT REQUEST DUONEB 10/07 1402 Active ARTERIAL BLOOD GAS REQUEST 10/07 1402 Active IV SALINE LOCK 10/07 1402 Active 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 of ischemic chgs, no ectopy, normal QRS, normal MO, no EKG for comparison, non-spec. ST/Twave chgs, ST elevation, ST depression, LBBB, RBBB, ectopy, abnormal Q waves XRAY/CT/US XRAY/CT/US XRAY chest XR interpretation by discussed w/radiologist Xray Results normal lung inflation [place], cardiomegaly, RIGHT upper lung infiltrate, referred to radiologist report Departure Departure Time of Disposition 1601 Disposition Still a Patient Clinical Impression Primary Impression: Pneumonia Qualifiers: Pneumonia type: due to unspecified organism Laterality: right Lung location: upper lobe of lung Qualified Code: J18.1 - Lobar pneumonia, unspecified organism Secondary Impressions: Fever Qualifiers: Fever type: unspecified Qualified Code: R50.9 - Fever, unspecified Leukocytosis Qualifiers: Leukocytosis type: unspecified Qualified Code: D72.829 - Elevated white blood cell count, unspecified Condition STABLE ED Critical Care Critical Care No at [id number]
[2016-10-07 15:31] LABS: LYMPH # 1.7 K/mm3 (0.7-4.5)
[2016-10-07 15:32] LABS: HEMOGLOBIN 10.4 g/dL (14.1-18.0)
[2016-10-07 16:02] LABS: CORRECTED WBC 15.4 K/mm3; NEUTROPHILS 81 % (42-76)
[2016-10-07 16:04] LABS: URINE BILIRUBIN - DIPSTICK NEGATIVE (NEG); URINE BLOOD TRACE-INTACT (NEG)
--- NOTE | 2016-10-07 17:21 | HISTORY AND PHYSICAL REPORT ---
Demographics: Admit date: 10/07/16 Chief complaint: Diarrhea and fever PRIMARY DIAGNOSIS: diarrhea Allergies: Coded Allergies: No Known Allergies (10/07/16) History of present illness: History of present illness: 60-year-old male who was just discharged from the hospital yesterday after an 8 day hospitalization where he had pseudomonal pneumonia that was treated with dual antibiotic coverage. At around 8 AM this morning patient developed watery diarrhea and he estimates 7-8 watery bowel movements between the hours of 8 and noon. He also had difficulty urinating during this time although he states this is her rather chronic issue. Despite his claim that his urinary problems are chronic he does not complain of those when hospitalized. He then developed a fever of 101.6 which was checked with an oral thermometer by his home health nurse. He decided to return to the emergency department. In the emergency department his white blood cell count has increased to 16,000 after returning to normal during his last hospitalization. He denies any increase in dyspnea, cough , sputum production. His biggest fear was the fever that he was having. Past medical history: Family HX Family Hx Insignificant No Diabetes No CAD No Hypertension Yes Hyperlipidemia No Cancer Yes TB No Immunization HX DT/Tetanus Unknown Flu 2015-FSN Pneumonia Received In Past General CAD? No Angina: No [place]: Yes Hypertension? Yes Hyperlipidemia? No CHF? No DVT? No PE? No COPD? Yes Asthma? Yes Anemia? Yes GERD? Yes Gastric ulcers? No GI Bleed? No Hernia? Yes Thyroid Problems? No Hypothyroidism? No CVA? No Seizures? No Diabetes? No Renal Insuffiency? No UTI? Yes Stones? Yes BPH? Yes GB Disease: No Nephritic Syndrome? No Asplenia? No Hepatitis? No Sickle Cell Disease? No Arthritis? Yes Migraines? No Cataracts? No Glaucoma? No MRSA? Yes HIV? No TB? No Anxiety? Yes Depression? Yes Cancer? No More? 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 Past Surgical HX Previous Surgery?Y LEFT ANKLE BILATERAL CARPAL TUNNEL RIGHT FOOT R SHOULDER REPLACEMENT IBV VALVE RT LUNG LEFT ANKLE IBV VALVE RT LUNG REMOVED Current home meds: Active Scripts Prednisone (Deltasone) 20 MG PO DAILY #10 TAB Prov: 09/27/16 Reported Medications Ranolazine (Ranexa) 1,000 MG PO BID Metoprolol Tartrate (Lopressor) 25 MG PO BID #60 Gabapentin 300 MG PO BID #60 Omeprazole (Prilosec 20MG) 20 MG PO DAILY Leflunomide (Arava) 20 MG PO DAILY Alprazolam (Xanax 1MG) 1 MG PO TID #90 TAB Sertraline Hydrochloride (Sertraline 100MG) 100 MG PO DAILY #30 CLOPIDOGREL BISULFATE (Clopidogrel) 75 MG PO DAILY #30 MULTIVIT-MIN W/FE-FA ( Multivitamin Tablet) 1 TAB PO DAILY Montelukast Sodium (Singulair) 10 MG PO QHS HYDROCODONE/ACETAMINOPHEN (Hydrocodon-Acetaminophn 10-325) 1 TAB PO Q4HP PRN PAIN #150 TRAZODONE HCL (Trazodone HCl) 50 MG PO QHS ALBUTEROL-IPRATROPIUM (Combivent Inhaler) 1 PUFFS IN Q6H FLUTICASONE/SALMETEROL (Advair 250-50 Diskus) 1 PUFF IN BID Social Hx: Smoking HX Tobacco Yes Type Cigarettes Packs/day < 1 PACK Alcohol Alcohol: No Hx of Drug Use Drug Use? No Comment: Patient stopped smoking within the last 6 months Review of systems: Constitutional fever. No: chills, diaphoresis. Respiratory cough, shortness of breath. Cardiovascular no symptoms reported Gastrointestinal/Abdominal no symptoms reported Genitourinary hesitancy. Musculoskeletal other (back pain). Neurological Yes: no symptoms reported. Exam: Lab data for last 24 hours: Laboratory Tests 10/07/16 1512: Lactic Acid 1.3 10/07/16 1512: Amylase 48, Lipase 55 L 10/07/16 1500: Sodium 137, Potassium 4.1, Chloride 96 L, Carbon Dioxide 39 H, BUN 19 H, Creatinine 1.3, Estimated Creat Clear 95, Estimated GFR (MDRD) 57, Glucose 72 L , Calcium 8.5, Total Bilirubin 0.8, AST 28, ALT 34, Alkaline Phosphatase 56, Creatine Kinase 46, CK-MB (CK-2) Rel Index 1.1, CK and CKMB Interp 0.5, Troponin I 0.03, Total Protein 6.6, Albumin 2.5 L, Globulin 4.1 H, Albumin/Globulin Ratio 0.6 L, WBC 15.6 H, Corrected WBC (auto) 15.4, RBC 3.82 L, Hgb 10.4 L, Hct 33.7 L, MCV 88.1, RDW 20.2 H, Plt Count 224, MPV 6.3 L, Gran % 84.4 H, Gran # 13.2 H, Total Counted 100, Lymphocytes % 11.0, Monocytes % 2.7, Eosinophils % 0.9, Basophils % 0.2, Neutrophils 81 H, Band Neutrophils 4, Lymphocytes (Manual) 13, Lymphocytes # 1.7, Monocytes (Manual) 2, Monocytes # 0.4, Eosinophils # 0.1, Basophils # 0.0, Nucleated RBCs 1, Platelet Estimate NORMAL, PUBS MCHC 30.8 L, MCH 27.1 10/07/16 1420: Urine Color YELLOW, Urine Appearance CLEAR, Urine pH 7.0, Ur Specific [place] 1.015, Urine Protein 1+ H, Urine Ketones NEGATIVE, Urine Blood TRACE-INTACT, Urine Nitrate NEGATIVE, Urine Bilirubin NEGATIVE, Urine Urobilinogen 0.2, Ur Leukocyte Esterase NEGATIVE, Urine WBC 10-20, Urine Bacteria 2+, Hyaline Casts 5 -10, Urine Mucus 1+, Urine Glucose NEGATIVE Microbiology 10/07 151 BLOOD: Anaerobic Blood Culture - RECD 10/07 1512 BLOOD: Aerobic Blood Culture - RECD 10/07 1420 URINE CATH: Urine Culture - RECD Admission vital signs: 1ST Vital Signs Result Date Time Pulse Ox 94 10/07 1403 B/P 95/70 10/07 1403 Temp 100.6 10/07 1403 Pulse 122 10/07 1403 Resp 26 10/07 1403 O2 Delivery OXYGEN 10/07 1440 O2 Flow Rate 3 10/07 1440 Additional information: Patient is disheveled but not ill-appearing. HEENT exam is significant for oral thrush covering the buccal mucosa and tongue. Lungs have expiratory wheezes heard both anteriorly and posteriorly along with rhonchi in the RIGHT upper lobe. Heart has a regular rate and rhythm. Abdomen is obese, soft, nontender, nondistended with active bowel sounds. Extremities are without edema. There are no focal neurologic deficits Plan: Problem List 1. Diarrhea 2. Fever 3. Iron deficiency anemia 4. Chronic obstructive lung disease Status Chronic 5. Pulmonary fibrosis 6. Rheumatoid arthritis Plan: Patient will be admitted and placed on fluids and a diarrhea panel has been ordered. I will place the patient back on cefepime 2 g every 8 hours to cover his recent Pseudomonas infection. C. difficile needs to be ruled out. Patient be monitored for fevers as well. Patient's CODE STATUS is a DO NOT RESUSCITATE.
[2016-10-07 17:41] VITALS: BP 112/64
[2016-10-07 17:43] VITALS: BP 112/64
[2016-10-07] MEDS ORDERED: FUROSEMIDE 40MG40 M1 PO (18:07)
[2016-10-07 18:19] LABS: AEROMONAS NOT DETECTED (NOT DETECTE); ASTROVIRUS NOT DETECTED (NOT DETECTE); CYCLOSPORA CAYETANENSIS NOT DETECTED (NOT DETECTE); E COLI O157 NOT DETECTED (NOT DETECTE); ENTEROAGGREGATIVE E COLI NOT DETECTED (NOT DETECTE); ENTEROPATHOGENIC E COLI NOT DETECTED (NOT DETECTE); ENTEROTOXIGENIC E COLI NOT DETECTED (NOT DETECTE); NOROVIRUS NOT DETECTED (NOT DETECTE); SAPOVIRUS NOT DETECTED (NOT DETECTE); SHIGA-LIKE TOXIN PROD. E COLI NOT DETECTED (NOT DETECTE); SHIGELLA/ENTEROINVASIVE E COLI NOT DETECTED (NOT DETECTE); VIBRIO CHOLERAE NOT DETECTED (NOT DETECTE)
[2016-10-07 19:50] VITALS: BP 104/58
[2016-10-07 21:29] VITALS: BP 104/58
[2016-10-07 23:53] VITALS: BP 107/61
[2016-10-08] VITALS (8 sets, daily range): BP systolic 102–137; BP diastolic 53–72
--- NOTE | 2016-10-08 07:17 | PHARMACY CLINIC NOTE ---
Patient Demographics Patient Demographics Admission date: 10/07/16 Date: 10/08/16 Time: 07 Allergies Coded Allergies: No Known Drug Allergies (-- 10/07/16) HEIGHT- FT: 5 IN: 8.00 K.895 VTE General Information Labs: Laboratory Tests 10/07 1500 Hematology Hgb (14.1 - 18.0 g/dL) 10.4 L Hct (42.0 - 52.0 %) 33.7 L Plt Count (142 - 424 K/mm3) 224 Disclaimer The following section includes nursing documentation that has been pulled in for pharmacy review. Patient's VTE score: 5 Patient's VTE Risk: LOW RISK Clinical trial participant? No VTE prophylaxis [id number] VTE prophylaxis ordered? Yes Type of prophylaxis/treatment: KENNY at 0717
[2016-10-08 07:20] LABS: LYMPH # 1.1 K/mm3 (0.7-4.5); LYMPH % 9.8 % (10-50)
--- NOTE | 2016-10-08 07:24 | ACUTE CARE PROGRESS NOTE (QUA) ---
Progress Notes Subjective Date 10/08/16 Time 0722 Note Patient had additional loose stools overnight. Diarrhea PCR panel was performed which was negative for C. difficile. Fevers trended down and he has not had any fever since late yesterday evening. His cough has become a little more productive of barnes sputum. He does not appear ill. Lungs have expiratory rhonchi and wheezes both anteriorly and posteriorly and bilaterally. Heart has regular rate and rhythm. Abdomen is obese and soft with normal bowel sounds. Continue cefepime at this time for his recent Pseudomonas. Await culture results. Monitor for fevers. Objective Findings Last VS-Temp:97.6 B/P:102/67 Pulse:72 Resp:24 SaO2:96 OXYGEN Last weight lbs:231 oz:4 K.895 Method:Bed Scales Laboratory Tests 10/08/16 0630: WBC 10.7, RBC 3.34 L, Hgb 9.0 L, Hct 29.9 L, MCV 89.5, RDW 20.2 H, Plt Count 180, MPV 6.1 L, Gran % 86.4 H, Gran # 9.3 H, Lymphocytes % 9.8 L, Monocytes % 2.9, Eosinophils % 0.7, Basophils % 0.2, Lymphocytes # 1.1, Monocytes # 0.3, Eosinophils # 0.1, Basophils # 0.0, PUBS MCHC 30.2 L, MCH 27.0 10/07/16 1800: Stl Cyclospora species NOT DETECTED, Stool Rotavirus (PCR) NOT DETECTED, Stool Campylobacter PCR NOT DETECTED, Stool Giardia Lamblia PCR NOT DETECTED, Stl Norovirus GI/GII PCR NOT DETECTED, Adenovirus (PCR) NOT DETECTED, C. difficile Tox (PCR) NOT DETECTED, E. coli (PCR) NOT DETECTED, Yersinia (PCR) NOT DETECTED 10/07/16 1512: Lactic Acid 1.3 10/07/16 1512: Amylase 48, Lipase 55 L 10/07/16 1500: Sodium 137, Potassium 4.1, Chloride 96 L, Carbon Dioxide 39 H, BUN 19 H, Creatinine 1.3, Estimated Creat Clear 95, Estimated GFR (MDRD) 57, Glucose 72 L , Calcium 8.5, Total Bilirubin 0.8, AST 28, ALT 34, Alkaline Phosphatase 56, Creatine Kinase 46, CK-MB (CK-2) Rel Index 1.1, CK and CKMB Interp 0.5, Troponin I 0.03, Total Protein 6.6, Albumin 2.5 L, Globulin 4.1 H, Albumin/Globulin Ratio 0.6 L, WBC 15.6 H, Corrected WBC (auto) 15.4, RBC 3.82 L, Hgb 10.4 L, Hct 33.7 L, MCV 88.1, RDW 20.2 H, Plt Count 224, MPV 6.3 L, Gran % 84.4 H, Gran # 13.2 H, Total Counted 100, Lymphocytes % 11.0, Monocytes % 2.7, Eosinophils % 0.9, Basophils % 0.2, Neutrophils 81 H, Band Neutrophils 4, Lymphocytes (Manual) 13, Lymphocytes # 1.7, Monocytes (Manual) 2, Monocytes # 0.4, Eosinophils # 0.1, Basophils # 0.0, Nucleated RBCs 1, Platelet Estimate NORMAL, PUBS MCHC 30.8 L, MCH 27.1 10/07/16 1420: Urine Color YELLOW, Urine Appearance CLEAR, Urine pH 7.0, Ur Specific [place] 1.015, Urine Protein 1+ H, Urine Ketones NEGATIVE, Urine Blood TRACE-INTACT, Urine Nitrate NEGATIVE, Urine Bilirubin NEGATIVE, Urine Urobilinogen 0.2, Ur Leukocyte Esterase NEGATIVE, Urine WBC 10-20, Urine Bacteria 2+, Hyaline Casts 5 -10, Urine Mucus 1+, Urine Glucose NEGATIVE Microbiology 10/08 0000 SPUTUM: Sputum Culture - RES 10/08 0000 SPUTUM: Gram Stain - RES 10/07 151 BLOOD: Anaerobic Blood Culture - RECD 10/07 151 BLOOD: Aerobic Blood Culture - RECD 10/07 1420 URINE CATH: Urine Culture - RECD Assessment/Plan Problem List 1. Diarrhea 2. Fever Qualifiers: Fever type: unspecified Qualified Code: R50.9 - Fever, unspecified 3. Iron deficiency anemia 4. Chronic obstructive lung disease Status: Chronic 5. Pulmonary fibrosis 6. Rheumatoid arthritis Patient condition Stable Plan: continue current care, await culture results This inpt stay is expected to cross 2 MNs from start of care Yes at 0724
[2016-10-09] VITALS (23 sets, daily range): BP systolic 105–167; BP diastolic 61–90
--- NOTE | 2016-10-09 07:53 | ACUTE CARE PROGRESS NOTE (QUA) ---
Progress Notes Subjective Date 10/09/16 Time 0751 Note Patient tells me he does not feel well this morning. He feels rather tired and run down. He denies outright myalgias. Review of his vital signs showed mild elevation in his temperature yesterday evening but no temperatures greater than 100 degrees. He continues to produce scant amounts of sputum. Vital signs were stable. Lungs have good inspiratory effort with faint scattered expiratory wheezes primarily her posterior RIGHT lung. Extremities are without edema. Heart has a regular rate and rhythm. Continue cefepime intravenously. Await sputum and blood cultures. I encouraged patient to ambulate Objective Findings Last VS-Temp:98.9 B/P:106/65 Pulse:96 Resp:22 SaO2:98 OXYGEN Last weight lbs:231 oz:4 K.895 Method:Bed Scales Assessment/Plan Problem List 1. Diarrhea 2. Fever Qualifiers: Fever type: unspecified Qualified Code: R50.9 - Fever, unspecified 3. Iron deficiency anemia 4. Chronic obstructive lung disease Status: Chronic 5. Pulmonary fibrosis 6. Rheumatoid arthritis 7. Pneumonia due to Pseudomonas aeruginosa Patient condition Improving Plan: continue current care This inpt stay is expected to cross 2 MNs from start of care Yes at 0753
[2016-10-09 09:32] LABS: HEMOGLOBIN 8.2 g/dL (14.1-18.0); LYMPH # 0.5 K/mm3 (0.7-4.5); LYMPH % 7.6 % (10-50)
[2016-10-09 10:44] LABS: NEUTROPHILS 87 % (42-76)
[2016-10-09 14:04] LABS: ABO BLOOD TYPE O; RH BLOOD TYPE POSITIVE
[2016-10-09 14:08] LABS: ANTIHUMAN GLOB CROSSMATCH COMPAT
[2016-10-09 14:09] LABS: ANTIHUMAN GLOB CROSSMATCH COMPAT
[2016-10-10] VITALS (9 sets, daily range): BP systolic 109–132; BP diastolic 50–95
[2016-10-10 00:29] LABS: HEMOGLOBIN 9.5 g/dL (14.1-18.0)
--- NOTE | 2016-10-10 07:25 | ACUTE CARE PROGRESS NOTE (QUA) ---
Progress Notes Subjective Date 10/10/16 Time 0723 Note Patient states that he is "slowly but surely" improving. Had an episode of tremor this morning, but this has resolved, and he feels good now. Expiratory wheezing and rhonchi in both anterior lung connor but symmetric air entry without use of accessory muscles. Heart rate regular. Abdomen soft, wearing compression stockings. Objective Findings Last VS-Temp:97.7 B/P:117/72 Pulse:84 Resp:20 SaO2:97 OXYGEN Last weight lbs:231 oz:4 K.895 Method:Bed Scales Assessment/Plan Problem List 1. Diarrhea 2. Fever Qualifiers: Fever type: unspecified Qualified Code: R50.9 - Fever, unspecified 3. Iron deficiency anemia 4. Chronic obstructive lung disease Status: Chronic 5. Pulmonary fibrosis 6. Rheumatoid arthritis 7. Pneumonia due to Pseudomonas aeruginosa 8. Morbid obesity Patient condition Stable Plan: continue current care, continue long-term IV antibiotics for his Pseudomonas infection. This inpt stay is expected to cross 2 MNs from start of care Yes at 0724
[2016-10-11 03:28] VITALS: BP 102/71
--- NOTE | 2016-10-11 07:17 | ACUTE CARE PROGRESS NOTE (QUA) ---
Progress Notes Subjective Date 10/11/16 Time 0715 Note Patient tells me he had a bad day yesterday. He woke up at some point in the evening or overnight and was disoriented and did not really recall where he was. He has not had any further fevers. No vomiting or diarrhea. He ate well yesterday. Patient does not appear ill or toxic. Lung exam reveals expiratory wheezes best heard posteriorly. Heart has a regular rate and rhythm. Abdomen is obese and soft. Sputum and blood cultures are negative for bacterial infection. Patient will continue cefepime until tomorrow when he seen by Dr. Escamilla. After pulmonology evaluation and disposition will be made. I explained to the patient I feel like we've kind of reached the limits of what we are able to do for him at this point his illness. He has not had any further fevers since the day of admission. Cultures have been negative. Symptoms are contributed to his return to the ER such as vomiting and diarrhea were short lived. Objective Findings Last VS-Temp:97.6 B/P:102/71 Pulse:115 Resp:24 SaO2:97 OXYGEN Last weight lbs:231 oz:4 K.895 Method:Bed Scales Assessment/Plan Problem List 1. Diarrhea 2. Fever Qualifiers: Fever type: unspecified Qualified Code: R50.9 - Fever, unspecified 3. Iron deficiency anemia 4. Chronic obstructive lung disease Status: Chronic 5. Pulmonary fibrosis 6. Rheumatoid arthritis 7. Pneumonia due to Pseudomonas aeruginosa 8. Morbid obesity Patient condition Stable Plan: continue current care This inpt stay is expected to cross 2 MNs from start of care Yes at 0717
--- NOTE | 2016-10-11 07:37 | ACUTE CARE PROGRESS NOTE (QUA) ---
Progress Notes Subjective Date 10/11/16 Time 0737 Assessment/Plan Problem List 1. Diarrhea 2. Fever Qualifiers: Fever type: unspecified Qualified Code: R50.9 - Fever, unspecified 3. Iron deficiency anemia 4. Chronic obstructive lung disease Status: Chronic 5. Pulmonary fibrosis 6. Rheumatoid arthritis 7. Pneumonia due to Pseudomonas aeruginosa 8. Morbid obesity This inpt stay is expected to cross 2 MNs from start of care Yes Antibiotic Stewardship (2) Current Culture Results Microbiology 10/08 0000 SPUTUM: Sputum Culture - COMP YEAST 10/08 0000 SPUTUM: Gram Stain - COMP 10/07 1512 BLOOD: Anaerobic Blood Culture - RES 10/07 1512 BLOOD: Aerobic Blood Culture - RES 10/07 1420 URINE CATH: Urine Culture - COMP Infxn that will respond? No Right drug,dose,and route? Yes More targeted antbx? No
[2016-10-11 07:57] VITALS: BP 102/71
[2016-10-11 08:31] VITALS: BP 112/49
[2016-10-11 12:00] VITALS: BP 137/83
[2016-10-11 17:31] VITALS: BP 122/79
[2016-10-11 23:38] VITALS: BP 129/78
[2016-10-12 04:00] VITALS: BP 132/88
[2016-10-12 06:33] LABS: HEMOGLOBIN 9.7 g/dL (14.1-18.0); LYMPH # 0.8 K/mm3 (0.7-4.5); LYMPH % 12.2 % (10-50)
--- NOTE | 2016-10-12 07:16 | ACUTE CARE PROGRESS NOTE (QUA) ---
Progress Notes Subjective Date 10/12/16 Time 0713 Note Patient tells me he had a rough night. He had multiple episodes of urinary incontinence. This is confirmed by his nurse. He had episodes of chills during the day and last night. He has not had any documented fevers. Patient seems very tired. He awakens easily this morning and is conversant. Lungs have scattered wheezes. Heart has a regular rate and rhythm. Abdomen is obese and soft. Pulmonology consult today. PT OT consult. Patient is a candidate for placement. Objective Findings Last VS-Temp:97.9 B/P:132/88 Pulse:96 Resp:18 SaO2:97 OXYGEN Last weight lbs:235 oz:9 [id number] Method:Bed Scales Laboratory Tests 10/12/16 0603: WBC 6.8, RBC 3.50 L, Hgb 9.7 L, Hct 31.3 L, MCV 89.4, RDW 19.1 H, Plt Count 116 L, MPV 6.6 L, Gran % 80.9 H, Gran # 5.5, Lymphocytes % 12.2, Monocytes % 5.2, Eosinophils % 1.7, Basophils % 0.1, Lymphocytes # 0.8, Monocytes # 0.4, Eosinophils # 0.1, Basophils # 0.0, PUBS MCHC 30.8 L, MCH 27.6 Assessment/Plan Problem List 1. Diarrhea 2. Fever Qualifiers: Fever type: unspecified Qualified Code: R50.9 - Fever, unspecified 3. Iron deficiency anemia 4. Chronic obstructive lung disease Status: Chronic 5. Pulmonary fibrosis 6. Rheumatoid arthritis 7. Pneumonia due to Pseudomonas aeruginosa 8. Morbid obesity Patient condition Stable Plan: continue current care This inpt stay is expected to cross 2 MNs from start of care Yes Antibiotic Stewardship (2) Infxn that will respond? No Right drug,dose,and route? Yes More targeted antbx? No at 0715
[2016-10-12 07:34] VITALS: BP 129/78
[2016-10-12 09:21] VITALS: BP 129/78
[2016-10-12] MEDS ORDERED: ACETAMINOPHEN &1 TA1 PO (11:37)
[2016-10-12] MEDS ORDERED: XANAX 1MG TABLET1 MG PO (11:37)
[2016-10-12 11:41] VITALS: BP 126/72
--- NOTE | 2016-10-12 11:42 | Discharge Summary ---
Demographics Admit date: 10/07/16 Discharge date: 10/12/16 Discharge diagnoses Problem List 1. Diarrhea 2. Fever 3. Iron deficiency anemia 4. Chronic obstructive lung disease Status Chronic 5. Pulmonary fibrosis 6. Rheumatoid arthritis 7. Pneumonia due to Pseudomonas aeruginosa 8. Morbid obesity History of present illness History of present illness 60-year-old male who was just discharged from the hospital yesterday after an 8 day hospitalization where he had pseudomonal pneumonia that was treated with dual antibiotic coverage. At around 8 AM this morning patient developed watery diarrhea and he estimates 7-8 watery bowel movements between the hours of 8 and noon. He also had difficulty urinating during this time although he states this is her rather chronic issue. Despite his claim that his urinary problems are chronic he does not complain of those when hospitalized. He then developed a fever of 101.6 which was checked with an oral thermometer by his home health nurse. He decided to return to the emergency department. In the emergency department his white blood cell count has increased to 16,000 after returning to normal during his last hospitalization. He denies any increase in dyspnea, cough , sputum production. His biggest fear was the fever that he was having. Patient was readmitted and placed on cefepime due to his recent history of Pseudomonas. He was kept on cefepime during hospitalization. In regards to his diarrhea a diarrhea panel was performed and no infectious organisms were identified. Diarrhea resolved within about 24 hours of hospitalization. Patient had no further vomiting after admission. Patient had fevers the first day of admission and then fevers resolved. During the rest of his hospitalization he had occasional elevations in temperature into the 99's but no documented temperatures over 100. Despite his normal temperatures the patient frequent complained of tremors which were transient in nature. On the patient had reached maximum medical improvement. His vehicle delivery worker, Dr. Escamilla, was consult did and evaluated the patient. He did recommend hospice consult after discharge from shelter facility. On the patient was transferred to [facility] for further rehab due to his prolonged hospitalizations and frequent hospitalizations. At discharge from shelter facility hospice can be contacted. Discharge condition: Stable Rehab potential: Poor Mental status: Average Prognosis: Poor Medications Medications: Discharge meds are as noted. Follow up Follow up in office in: 2 WEEKS with: Norm Perez MD at 1140
--- NOTE | 2016-10-12 11:42 | Discharge Summary ---
Demographics Admit date: 10/07/16 Discharge date: 10/12/16 Discharge diagnoses Problem List 1. Diarrhea 2. Fever 3. Iron deficiency anemia 4. Chronic obstructive lung disease Status Chronic 5. Pulmonary fibrosis 6. Rheumatoid arthritis 7. Pneumonia due to Pseudomonas aeruginosa 8. Morbid obesity History of present illness History of present illness 60-year-old male who was just discharged from the hospital yesterday after an 8 day hospitalization where he had pseudomonal pneumonia that was treated with dual antibiotic coverage. At around 8 AM this morning patient developed watery diarrhea and he estimates 7-8 watery bowel movements between the hours of 8 and noon. He also had difficulty urinating during this time although he states this is her rather chronic issue. Despite his claim that his urinary problems are chronic he does not complain of those when hospitalized. He then developed a fever of 101.6 which was checked with an oral thermometer by his home health nurse. He decided to return to the emergency department. In the emergency department his white blood cell count has increased to 16,000 after returning to normal during his last hospitalization. He denies any increase in dyspnea, cough , sputum production. His biggest fear was the fever that he was having. Patient was readmitted and placed on cefepime due to his recent history of Pseudomonas. He was kept on cefepime during hospitalization. In regards to his diarrhea a diarrhea panel was performed and no infectious organisms were identified. Diarrhea resolved within about 24 hours of hospitalization. Patient had no further vomiting after admission. Patient had fevers the first day of admission and then fevers resolved. During the rest of his hospitalization he had occasional elevations in temperature into the 99's but no documented temperatures over 100. Despite his normal temperatures the patient frequent complained of tremors which were transient in nature. On the patient had reached maximum medical improvement. His public speaking teacher, Dr. Escamilla, was consult did and evaluated the patient. He did recommend hosp[facility] consult [facility]. On the patient was transferred to [facility] for further rehab due to his prolonged hospitalizations and frequent hospitalizations. [facility] from jail facility hospice can be contacted. Discharge condition: Stable Rehab potential: Poor Mental status: Average Prognosis: Poor Medications Medications: Discharge meds are as noted. Follow up Follow up in office in: 2 WEEKS with: Norm Perez MD at 1145
[2016-10-12 14:00] VITALS: BP 126/72
--- NOTE | 2016-10-12 17:41 | CONSULT NOTE ---
Standard Demographics Patient Demo Date of Consultation: 10/12/16 Referring Provider: Norm Perez MD Reason for Consultation: Pneumonia PRIMARY DIAGNOSIS: PNEUMONIA, DIARRHEA Allergies: Coded Allergies: No Known Drug Allergies (-- 10/07/16) History of present illness: History of present illness: Mr. Andrews is a 60-year-old man who suffers from severe pulmonary dysfunction related to chronic obstructive pulmonary disease and an interstitial lung disease believed related to rheumatoid arthritis. These disorders have caused chronic respiratory failure and, over the last year or so, he has become progressively more debilitated. He was recently admitted with apparent Pseudomonas pneumonia and then readmitted with diarrhea and fever which have resolved. I saw him today to assess further investigations and therapy. Mr. Andrews was quite dyspneic walking even 20-40 feet when I last saw him in the office a month ago and he desaturated despite wearing supplemental oxygen at 3 L/m. He still had not recovered from a May admission for pneumonia. He has required chronic, relatively high dose corticosteroid therapy as he's been hospitalized for acute exacerbations and severe dyspnea even while at home. He has been using Advair, Combivent, nebulized bronchodilators and azithromycin on Wednesdays and Fridays. He wears CPAP for FATEMEH. Past medical history: Family HX Family Hx Insignificant Yes Immunization HX DT/Tetanus 5-10 Years Ago Flu 2015-FSN Pneumonia Received In Past TB Test in last year No General CAD? No Angina: No IA: Yes Hypertension? Yes Hyperlipidemia? No CHF? No DVT? No PE? No COPD? Yes Asthma? Yes Anemia? Yes GERD? Yes Gastric ulcers? No GI Bleed? No Hernia? Yes Thyroid Problems? No Hypothyroidism? No CVA? No Seizures? No Diabetes? No Renal Insuffiency? No UTI? Yes Stones? Yes BPH? Yes GB Disease: No Nephritic Syndrome? No Asplenia? No Hepatitis? No Sickle Cell Disease? No Arthritis? Yes Migraines? No Cataracts? No Glaucoma? No MRSA? Yes HIV? No TB? No Anxiety? Yes Depression? Yes Cancer? No More? 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 Past Surgical HX Previous Surgery?Y LEFT ANKLE BILATERAL CARPAL TUNNEL RIGHT FOOT R SHOULDER REPLACEMENT IBV VALVE RT LUNG LEFT ANKLE IBV VALVE RT LUNG REMOVED Current home meds: Active Scripts Prednisone (Deltasone) 20 MG PO DAILY #10 TAB Prov: 05/01/17 Reported Medications Gabapentin 300 MG PO TID #60 CAPSULE Ranolazine (Ranexa) 1,000 MG PO BID Metoprolol Tartrate (Lopressor) 25 MG PO BID #60 Furosemide 40 MG PO DAILY Omeprazole (Prilosec 20MG) 20 MG PO DAILY Leflunomide (Arava) 20 MG PO DAILY Sertraline Hydrochloride (Sertraline 100MG) 100 MG PO DAILY #30 CLOPIDOGREL BISULFATE (Clopidogrel) 75 MG PO DAILY #30 MULTIVIT-MIN W/FE-FA ( Multivitamin Tablet) 1 TAB PO DAILY Montelukast Sodium (Singulair) 10 MG PO QHS TRAZODONE HCL (Trazodone HCl) 50 MG PO QHS ALBUTEROL-IPRATROPIUM (Combivent Inhaler) 1 PUFFS IN Q6H FLUTICASONE/SALMETEROL (Advair 250-50 Diskus) 1 PUFF IN BID Discontinued Reported Medications Alprazolam (Xanax 1MG) 1 MG PO TID #90 TAB DC: 10/12/16 1137 HYDROCODONE/ACETAMINOPHEN (Hydrocodon-Acetaminophn 10-325) 1 TAB PO Q4HP PRN PAIN #150 DC: 10/12/16 1137 Social Hx: Pt is a smoker (recently quit) Patient uses alcohol never Patien't marital status is Patient's support system is fair Pt uses illicit drugs? No Standard Review of Systems General see HPI. Eyes decreased acuity. No: blindness, blurred vision, drainage, foreign body sensation, inflammation, pain, photophobia. Ears, Nose, Mouth, Throat No no symptoms reported Respiratory see HPI. Cardiovascular No no symptoms reported Gastrointestinal/Abdominal abdomen distended, diarrhea (resolved), poor appetite Genitourinary frequency, hesitancy. Musculoskeletal back pain, joint pain, muscle pain, neck pain. Skin No: no symptoms reported. Neurological No: see HPI. Psychiatric Yes: anxious, depressed. Exam: Lab data for last 24 hours: Laboratory Tests 10/12/16 0603: WBC 6.8, RBC 3.50 L, Hgb 9.7 L, Hct 31.3 L, MCV 89.4, RDW 19.1 H, Plt Count 116 L, MPV 6.6 L, Gran % 80.9 H, Gran # 5.5, Lymphocytes % 12.2, Monocytes % 5.2, Eosinophils % 1.7, Basophils % 0.1, Lymphocytes # 0.8, Monocytes # 0.4, Eosinophils # 0.1, Basophils # 0.0, PUBS MCHC 30.8 L, MCH 27.6 Admission vital signs: 1ST Vital Signs Result Date Time Pulse Ox 94 10/07 1403 B/P 95/70 10/07 1403 Temp 100.6 10/07 1403 Pulse 122 10/07 1403 Resp 26 10/07 1403 O2 Delivery OXYGEN 10/07 1440 O2 Flow Rate 3 10/07 1440 Exam General appearance: alert (chronically ill appearing, ove) Eyes: normal exam ENT: nose normal, wearing dentures;Mallampati IV Neck: supple Cardiovascular: regular rate & rhythm, no murmur Respiratory: dyspnea, on oxygen, basilar rales ABD: normal bowel sounds, no tenderness, no guarding, no organomegaly Extremities: normal exam Skin: normal exam Neuro: normal exam Plan: Problem List 1. Diarrhea 2. Fever 3. Iron deficiency anemia 4. Chronic obstructive lung disease Status Chronic 5. Pulmonary fibrosis 6. Rheumatoid arthritis 7. Pneumonia due to Pseudomonas aeruginosa 8. Morbid obesity Plan: Mr. Andrews lives with his aunt and had been caring for himself. Now, he requires quite a bit of help and has had home health when he has not been in the hospital or [facility]. I reviewed the CT scan of the chest from September 28 and compared it to prior CTs. There has been progressive disease, especially in the lower lung connor which may represent infection or possibly malignancy. There is no enlarged subcarinal node present on the most recent CT. Mr. Andrews suffers from chronic respiratory failure related to chronic fibrotic and obstructive lung disease. He recently quit smoking earlier this year but has not improved. His CT scan of the chest suggests either progressive infection, fibrosis or, possibly, malignancy. He is in no condition for further evaluation and I discussed hospice with him. He is agreeable. I'll follow him up through hospice or in the clinic. I understand he'll be going to a [facility] for a few days for some therapy and I agree with this plan. Thank you for letting me evaluate him with you. at [id number]
== END 2016-10-12 14:45 | DRG 391 ==
LOC: ER 14:00 → 2ND 16:10
PROVIDERS: Emergency Medicine; Family Medicine
DX: R19.7 Diarrhea, unspecified (principal); J18.9 Pneumonia, unspecified organism; J84.9 Interstitial pulmonary disease, unspecified; J96.10 Chronic respiratory failure, unspecified whether with hypoxia or hypercapnia; J84.10 Pulmonary fibrosis, unspecified; R50.9 Fever, unspecified; J44.9 Chronic obstructive pulmonary disease, unspecified
CPT/HCPCS: G0378; P9016